=== PATIENT | male | born 1950 | race Caucasian/White ===

== ENCOUNTER 2017-09-07 10:01 | Observation (INO) | payer MEDICARE, OTHER ==
--- NOTE | 2017-09-07 10:37 | ED ---
Chest Pain HPI - General Chief Complaint: Chest Pain Stated Complaint: Chest Pain Time Seen by Provider: 09/07/17 10:07 Source: EMS Mode of arrival: EMS Limitations: no limitations - History of Present Illness Initial Comments: This is a 66-year-old male with a history of CAD who presents emergent department for chest pain. He states that for the last couple of weeks she's had a steady decline in the amount of energy that he's had throughout the day. He states that this morning he was walking to the [place] when all the sudden he had a sudden onset of some chest discomfort that "knocked him back". He states that he decided to call and he notes at that time. He did take an aspirin before their arrival. They gave him a nitro in route which improved his chest pain. He states he still has a little bit of discomfort however the pain is mostly resolved. He states that the pain felt similar to his previous [place] in the past. 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 90 shortness of breath. No abdominal pain. No nausea, vomiting, diarrhea. No other acute complaints at this time. - Related Data Home Medications Medication Instructions Recorded Confirmed Aspirin 325 mg PO HS 09/07/17 09/07/17 Docusate [Colace] 100 mg PO HS PRN 09/07/17 09/07/17 Eszopiclone [Lunesta] 1 mg PO HS 09/07/17 09/07/17 Ezetimibe/Simvastatin [Vytorin 1 tab PO HS 09/07/17 09/07/17 10-80 mg Tablet] Isosorbide Mononitrate ER [Imdur] 30 mg PO HS 09/07/17 09/07/17 Ketotifen 0.025% Ophth Soln 1 drop BOTH EYES BID PRN 09/07/17 09/07/17 [Zaditor] Lisinopril [Zestril] 10 mg PO HS 09/07/17 09/07/17 Metoprolol Succinate (ER) [Toprol 25 mg PO HS 09/07/17 09/07/17 Xl] Nicotine 21Mg/24Hr Patch [Habitrol 1 patch TRANSDERM DAILY 09/07/17 09/07/17 21Mg/24Hr Patch] Pantoprazole [Protonix] 40 mg PO HS 09/07/17 09/07/17 SUMAtriptan SUCCINATE [Imitrex] 50 mg PO BID PRN 09/07/17 09/07/17 Temazepam [Restoril] 30 mg PO HS 09/07/17 09/07/17 amLODIPine [Norvasc] 10 mg PO HS 09/07/17 09/07/17 busPIRone HCl [Buspar] 20 mg PO BID 09/07/17 09/07/17 traMADol HCL [Ultram] 50 mg PO BID PRN 09/07/17 09/07/17 Allergies Allergy/AdvReac Type Severity Reaction Status Date / Time codeine Allergy Rash/Hives Verified 09/07/17 10:28 zolpidem [From Ambien] AdvReac "salty" Verified 09/07/17 10:28 taste in mouth, numb mouth Review of Systems ROS Statement: Those systems with pertinent positive or pertinent negative responses have been documented in the HPI. ROS Other: All systems not noted in ROS Statement are negative. EKG Findings - EKG Comments: EKG Findings:: EKG showing normal sinus rhythm with a rate of 72. No abnormal ST segment changes or T-wave inversions.. QTC is 429. Other intervals normal. No ectopy. Past Medical History Past Medical History: Coronary Artery Disease (CAD), Hyperlipidemia, Hypertension, Myocardial Infarction ([place]) History of Any Multi-Drug Resistant Organisms: None Reported Past Surgical History: Heart Catheterization With Stent Past Psychological History: No Psychological Hx Reported Smoking Status: Current every day smoker Past Alcohol Use History: None Reported Past Drug Use History: Marijuana General Exam - General Exam Comments Initial Comments: Constitutional: Awake alert Appears comfortable Head: Normocephalic atraumatic Eyes: no conjunctival injection No scleral icterus EOMI Neck: No JVD Supple Heart: Regular rate rhythm normal S1-S2 no murmurs Lungs: Clear to auscultation bilaterally No wheezing No rales Abdomen: Soft nondistended nontender Extremities: Non edematous DP pulses intact Radial pulses intact Neuro: A&Ox3 No focal neurologic deficits Psych: Appropriate mood and affect Limitations: no limitations Course Vital Signs 09/07/17 09/07/17 10:02 11:00 Temperature 97.2 F L Pulse Rate 80 69 Respiratory 20 20 Rate Blood Pressure 147/76 115/65 O2 Sat by Pulse 98 97 Oximetry Chest Pain MDM - MDM This is a 66-year-old male who presents emergency department for fatigue and chest pain. The patient had no acute ischemic changes on his EKG. Troponin negative. The patient was improved after nitro that was given in route by EMS. This patient does have a significant history of CAD and [place] in the past. I feel that he is not safe to go home. He needs to have a further workup performed in the hospital. I spoke with Dr. Marcano who accepts the admission. The patient was updated and agrees with this. Patient will be observed for cardiac eval. Disposition Clinical Impression: Chest pain Disposition: ADMITTED IP TO THIS HOSP Condition: Stable
[2017-09-07 10:52] LABS: Basophils # (A) 0.1 k/uL (0-0.2); Basophils % (A) 1 %; Eosinophils # (A) 0.2 k/uL (0-0.7); Eosinophils % (A) 3 %; HCT 41.1 % (39.0-53.0); HGB 13.6 gm/dL (13.0-17.5); Lymphocytes # (A) 2.3 k/uL (1.0-4.8); Lymphocytes % (A) 30 %; MCH 30.6 pg (25.0-35.0); MCHC 33.1 g/dL (31.0-37.0); MCV 92.5 fL (80.0-100.0); Mean Platelet Volume 7.4; Monocytes # (A) 0.7 k/uL (0-1.0); Monocytes % (A) 10 %; Neutrophils # (A) 4.2 k/uL (1.3-7.7); Neutrophils % (A) 55 %; Platelet Count 212 k/uL (150-450); RBC 4.44 m/uL (4.30-5.90); RDW 13.1 % (11.5-15.5); WBC 7.7 k/uL (3.8-10.6)
[2017-09-07 11:01] LABS: ALT 29 U/L (21-72); AST 17 U/L (17-59); Albumin 4.3 g/dL (3.5-5.0); Alkaline Phosphatase 97 U/L (38-126); Anion Gap 10 mmol/L; Blood Urea Nitrogen 14 mg/dL (9-20); Calcium 9.1 mg/dL (8.4-10.2); Carbon Dioxide 23 mmol/L (22-30); Chloride 110 mmol/L (98-107); Glucose 95 mg/dL (74-99); Potassium 4.6 mmol/L (3.5-5.1); Sodium 143 mmol/L (137-145); Total Bilirubin 0.5 mg/dL (0.2-1.3); Total Protein 6.9 g/dL (6.3-8.2)
--- NOTE | 2017-09-07 11:04 | XR ---
EXAMINATION TYPE: XR chest 2V DATE OF EXAM: 09/07/2017 COMPARISON: 12/14/2015 HISTORY: 66-year-old male with chest pain and shortness of breath TECHNIQUE: PA and lateral views FINDINGS: Heart normal size. Mild elongation thoracic aorta. Diffuse interstitial prominence is unchanged. Stra ndy lower lung atelectasis. No consolidation or pleural effusion. IMPRESSION: Chronic changes, possible chronic bronchitis/asthma. No acute cardiopulmonary process.
[2017-09-07 11:18] LABS: INR 0.9 (<1.2); Partial Thromboplastin Time 23.9 sec (22.0-30.0); Prothrombin Time 9.4 sec (9.0-12.0)
[2017-09-07 11:58] LABS: Creatine Kinase MB 1.6 ng/mL (0.0-2.4); Troponin I <0.012 ng/mL (0.000-0.034)
[2017-09-07] MEDS ORDERED: NITROGLYCERIN SL TABS 0.4 MG TAB SUBLINGUAL PRN (12:06)
[2017-09-07] MEDS ORDERED: HEPARIN SODIUM,PORCINE 5,000 UNIT/ML 1 ML VIAL IV ONE (12:06)
[2017-09-07] MEDS ORDERED: SUMAtriptan SUCCINATE 50 MG TAB PO PRN (12:09)
[2017-09-07] MEDS ORDERED: KETOTIFEN 0.025% OPHTH DROPS 5 ML BTL BOTH EYES PRN (12:09)
[2017-09-07] MEDS ORDERED: DOCUSATE 100 MG CAP PO PRN (12:09)
[2017-09-07] MEDS ORDERED: traMADol 50 MG TAB PO PRN (12:09)
[2017-09-07] MEDS ORDERED: HEPARIN SOD,PORK IN 0.45% NACL 25,000 UNIT in 0.45% NACL 1 500ML.BAG IV SCH (12:15)
[2017-09-07] MEDS ORDERED: NICOTINE 21MG/24HR PATCH TRANSDERM STA (16:44)
[2017-09-07] MEDS: ALPRAZolam 0.25 MG TAB PO PRN (17:48)
[2017-09-07 18:36] LABS: Creatine Kinase 278 U/L (55-170)
[2017-09-07 18:49] LABS: Creatine Kinase MB 1.8 ng/mL (0.0-2.4); Troponin I <0.012 ng/mL (0.000-0.034)
[2017-09-07] MEDS: traMADol 50 MG TAB PO PRN (19:31)
[2017-09-07 19:40] LABS: Appearance,Urine Clear (Clear); Bilirubin,Urine Negative (Negative); Blood,Urine Negative (Negative); Color,Urine Light Yellow; Glucose,Urine (UA) Negative (Negative); Ketones,Urine Negative (Negative); Leukocyte Esterase,Urine Negative (Negative); Nitrite,Urine Negative (Negative); PH, Urine 6.5 (5.0-8.0); Protein,Urine Negative (Negative); Specific Gravity,Urine 1.009 (1.001-1.035); Urobilinogen,Urine <2.0 mg/dL (<2.0)
[2017-09-07] MEDS ORDERED: ISOSORBIDE MONONITRATE ER 30 MG TAB.ER.24H PO SCH (21:00)
[2017-09-07] MEDS ORDERED: TEMAZEPAM 30 MG CAP PO SCH (21:00)
[2017-09-07] MEDS ORDERED: EZETIMIBE 10 MG TAB PO SCH (21:00)
[2017-09-07] MEDS ORDERED: METOPROLOL SUCCINATE (ER) 25 MG TAB.ER.24H PO SCH (21:00)
[2017-09-07] MEDS ORDERED: ATORVASTATIN 40 MG TAB PO SCH (21:00)
[2017-09-07] MEDS ORDERED: amLODIPine 10 MG TAB PO SCH (21:00)
[2017-09-07] MEDS ORDERED: LISINOPRIL 10 MG TAB PO SCH (21:00)
[2017-09-07] MEDS ORDERED: TEMAZEPAM 15 MG CAP PO SCH (21:00)
[2017-09-07] MEDS ORDERED: PANTOPRAZOLE 40 MG TABLET PO SCH (21:00)
[2017-09-07] MEDS: busPIRone HCl 10 MG TAB PO SCH (21:22)
[2017-09-07] MEDS: PANTOPRAZOLE 40 MG TABLET PO SCH (21:23)
[2017-09-07 23:25] LABS: Creatine Kinase 242 U/L (55-170)
[2017-09-07 23:39] LABS: Creatine Kinase MB 1.6 ng/mL (0.0-2.4); Troponin I <0.012 ng/mL (0.000-0.034)
[2017-09-08] MEDS: traMADol 50 MG TAB PO PRN ×2 (01:07→05:31)
[2017-09-08] MEDS ORDERED: IBUPROFEN 600 MG TAB PO PRN (04:46)
--- NOTE | 2017-09-08 04:59 | HP ---
HISTORY AND PHYSICAL DATE OF SERVICE: 09/07/17 CHIEF COMPLAINT: Chest pain. HISTORY OF PRESENT ILLNESS: This 66-year-old gentleman with a past medical history of multiple medical problems including history of CAD, history of GERD, hypertension, hyperlipidemia, history of myocardial infarction, vascular disease and history of cardiac arrest, myocardial infarction, being followed by Dr. Felix in the outpatient setting apparently had a recent stress test about 5 months ago. Currently the patient is complaining of chest pain for the last couple of weeks. The patient also complaining of significant weakness for the last couple of weeks and the pain was felt in the anterior part of the chest, the lower part and because of the increasing difficulties the patient came to [facility] and was admitted for further evaluation and treatment. The weakness is predominant and nitro en route improved the pain. There is no history of any other palpitation, hematochezia or melena at this time. The patient's managing partner is elsewhere. PAST MEDICAL HISTORY: CAD, CVA, TIA, GERD, hypertension, hyperlipidemia, history of myocardial infarction, history of vascular disease, cardiac arrest. MEDICATIONS: The home medications are: 1. Ultram 50 mg b.i.d. p.r.n. 2. BuSpar 20 mg b.i.d. 3. Imitrex 50 mg b.i.d. p.r.n. 4. Habitrol daily. 5. Zaditor 1 drop both eyes b.i.d. 6. Colace 100 mg q.h.s. 7. Aspirin 320 mg q.h.s. 8. Norvasc 10 mg daily. 9. Imdur 30 mg. 10.Restoril 30 mg q.h.s. 11.Protonix 40 mg. 12.Toprol-XL 25 mg q.h.s. 13.Zestril 20 mg q.h.s. 15.Lunesta 1 mg q.h.s. ALLERGIES: ALLERGIES ARE CODEINE AND AMBIEN. FAMILY HISTORY: History of diabetes mellitus. SOCIAL HISTORY: History of smoking, continued ongoing. No history of alcohol intake. REVIEW OF SYSTEMS: ENT: No diminished vision. No diminished hearing. CARDIOVASCULAR: As mentioned. Respiration: As mentioned earlier. GI no nausea or vomiting. no dysuria or hematuria. Nervous systems: No numbness or weakness. Allergy/Immunology: No asthma or hayfever. MUSCULOSKELETAL: As mentioned earlier. Hematology/Oncology: No history of anemia. Endocrine: No history of diabetes or hypothyroidism. Constitutional: As mentioned earlier. Dermatology: Negative. Rheumatology: Negative. Psychiatric: As mentioned earlier. EXAMINATION: Alert and oriented times three. Pulse is 70, blood pressure 140/92. Respirations 16, temperature 98.4, pulse ox 94% on room air. No orthostatic changes. HEENT: Conjunctivae normal. Neck is no jugular venous distention. Cardiovascular system: S1, S2 muffled. No S3, no S4. Respiratory: Breath sounds diminished in the bases. A few rhonchi. No crackles. ABDOMEN: Soft, obese, nontender. No mass palpable. Legs: No edema and no swelling. NERVOUS SYSTEM: Higher functions as mentioned earlier, moves all 4 limbs, no focal motor or sensory deficits. Lymphatics: No lymph nodes palpable in the neck, axillae or groin. Skin no ulcers, rashes or bleeding. LAB STUDIES: CBC within normal limits. Sodium 141, potassium 4.6, and creatinine 2.8. Troponins negative. The EKG shows some old possibly old inferior infarct. No acute changes. ASSESSMENT: 1. Chest pain possible unstable angina. 2. History of myocardial infarction with cardiac arrest. 3. History of gastroesophageal reflux disease. 4. History of cerebrovascular accident/transient ischemic attack. 5. Hypertension. 6. Hyperlipidemia. 7. History of continued nicotine dependence. 8. History of hepatitis C. 9. History of coronary artery disease, stent. 10.History of anxiety. RECOMMENDATIONS AND DISCUSSION: In this 60-year-old gentleman who presented with multiple complex medical issues , I recommend to continue current medications, management and symptomatic treatment. Continue with beta debby. Continue the unstable angina protocol and antiplatelet agents. Cardiology consultation. Xanax for anxiety. Otherwise I would also recommend repeat labs in the morning. Prognosis guarded because of multiple complex medical issues, which I discussed at length with the patient at bedside. The patient understands, and agrees. Further recommendations to follow. Copy of dictation being forwarded to Dr. Azar who is the primary care physician. MMROBL / GINGERN: [id number] / MTDD
[2017-09-08] MEDS: ALPRAZolam 0.25 MG TAB PO PRN (05:27)
[2017-09-08 07:57] LABS: Basophils % (A) 1 %; Eosinophils # (A) 0.3 k/uL (0-0.7); Eosinophils % (A) 4 %; HCT 38.8 % (39.0-53.0); HGB 12.3 gm/dL (13.0-17.5); Lymphocytes # (A) 2.6 k/uL (1.0-4.8); Lymphocytes % (A) 39 %; MCH 30.4 pg (25.0-35.0); MCHC 31.6 g/dL (31.0-37.0); Mean Platelet Volume 7.5; Monocytes # (A) 0.7 k/uL (0-1.0); Monocytes % (A) 10 %; Neutrophils % (A) 44 %; Platelet Count 169 k/uL (150-450); RBC 4.04 m/uL (4.30-5.90); RDW 13.1 % (11.5-15.5); WBC 6.9 k/uL (3.8-10.6)
[2017-09-08 08:25] VITALS: BP 153/86; PULSE 88; RESP 18; TEMP 97.6
[2017-09-08] MEDS: busPIRone HCl 10 MG TAB PO SCH (08:27)
[2017-09-08] MEDS: PANTOPRAZOLE 40 MG TABLET PO SCH (08:29)
[2017-09-08 08:59] LABS: Anion Gap 9 mmol/L; Blood Urea Nitrogen 17 mg/dL (9-20); Calcium 9.2 mg/dL (8.4-10.2); Carbon Dioxide 23 mmol/L (22-30); Chloride 108 mmol/L (98-107); Cholesterol 97 mg/dL (<200); Glucose 99 mg/dL (74-99); HDL Cholesterol 42 mg/dL (40-60); LDL Cholesterol,Calculated 42 mg/dL (0-99); Potassium 4.4 mmol/L (3.5-5.1); Sodium 140 mmol/L (137-145); Triglycerides 63 mg/dL (<150)
[2017-09-08] MEDS ORDERED: NICOTINE 21MG/24HR PATCH TRANSDERM SCH (09:00)
[2017-09-08] MEDS ORDERED: ASPIRIN 325 MG TAB PO SCH (09:00)
--- NOTE | 2017-09-08 11:25 | ECHOF ---
Referral Reason:chest pain MEASUREMENTS -------- HEIGHT: 177.8 cm WEIGHT: 97.5 kg BP: 96/48 RVIDd: 2.8 cm (< 3.3) IVSd: 1.3 cm (0.6 - 1.1) LVIDd: 3.4 cm (3.9 - 5.3) LVPWd: 1.3 cm (0.6 - 1.1) IVSs: 1.7 cm LVIDs: 2.6 cm LVPWs: 2.0 cm LA Diam: 3.7 cm (2.7 - 3.8) LAESV Index (A-L): 24.61 ml/m Ao Diam: 3.3 cm (2.0 - 3.7) AV Cusp: 2.2 cm (1.5 - 2.6) MV EXCURSION: 18.048 mm (> 18.000) MV EF SLOPE: 83 mm/s (70 - 150) EPSS: 1.1 cm MV E Salvador: 0.63 m/s MV DecT: 303 ms MV A Salvador: 0.89 m/s MV E/A Ratio: 0.70 FINDINGS -------- Sinus rhythm. This was a technically good study. The left ventricular size is normal. There is mild concentric left ventricular hypertrophy. Overa ll left ventricular systolic function is mildly impaired with, an EF between 45 - 50 %. Basal infer ior LV wall motion is hypokinetic. Basal inferoseptal LV wall motion is hypokinetic. The right ventricle is normal in size. Normal LA size by volume 22+/-6 ml/m2. The right atrium is normal in size. There is mild aortic valve sclerosis. There is trace mitral regurgitation. The tricuspid valve appears structurally normal. Trace/mild (physiologic) pulmonic regurgitation. The aortic root size is normal. Normal inferior vena cava with normal inspiratory collapse consistent with estimated right atrial pre ssure of 5 mmHg. There is no pericardial effusion. CONCLUSIONS -------- 1. Sinus rhythm. 2. This was a technically good study. 3. The left ventricular size is normal. 4. There is mild concentric left ventricular hypertrophy. 5. Overall left ventricular systolic function is mildly impaired with, an EF between 45 - 50 %. 6. Basal inferior LV wall motion is hypokinetic. 7. Basal inferoseptal LV wall motion is hypokinetic. 8. The right ventricle is normal in size. 9. Normal LA size by volume 22+/-6 ml/m2. 10. The right atrium is normal in size. 11. There is mild aortic valve sclerosis. 12. There is trace mitral regurgitation. 13. The tricuspid valve appears structurally normal. 14. Trace/mild (physiologic) pulmonic regurgitation. 15. The aortic root size is normal. 16. Normal inferior vena cava with normal inspiratory collapse consistent with estimated right atrial pressure of 5 mmHg. 17. There is no pericardial effusion. SECURITY TESTER: Celi Sanchez RDCS
--- NOTE | 2017-09-08 11:46 | P.CRDCN ---
History of Present Illness Consult date: 09/08/17 Consult reason: chest pain History of present illness: Mr. James is a pleasant 66-year-old male past medical history significant for coronary artery disease, hypertension, dylipidemia, gastroesophageal reflux disease, hepatitis C, chronic tobacco use and anxiety. He follows with Dr. Sung out of [facility] for his cardiac needs. He states he has a total of 7 stents, last one being placed in 2011 at [facility]. We have been asked to see him in consultation for an episode of chest pain. He states yesterday he was getting up and walking down his hallway and he felt very weak and fatigued. Out of nowhere he felt a sharp, jolt like pain that caused him to fall backwards. He denies having an AICD. The pain was centrally located in his chest and remained there with no radiation of the pain. He admits to shortness of breath with the pain. Denies associated palpitation, dizziness, nausea, vomiting or diaphoresis. The pain remained until EMS arrived and was given nitroglycerin. He has had not further symptoms of chest pain since admission. At the time of my exam he is resting comfortably in no acute distress and chest pain free. EKG reveals sinus mechanism with non-specific T-wave changes in inferior leads. No evidence of acute ischemia. Chest xray is negative for an acute cardiopulmonary process. Laboratory data reviewed, hemoglobin 12.3, platelets 169, potassium 4.4, creatinine 1.23, cardiac enzymes negative 3, LDL 42, HDL 42. Current cardiac medications include aspirin 325 mg daily, Norvasc 10 mg daily, Imdur 30 mg daily, Toprol 25 mg daily and lisinopril 10 mg daily. There are no old records to review. Review of Systems At the time of my exam: CONSTITUTIONAL: Denies fever. Denies chills. EYES: Denies blurred vision. Denies vision changes. Denies eye pain. EARS, NOSE, MOUTH & THROAT: Denies headache. Denies sore throat. Denies ear pain. CARDIOVASCULAR: Denies chest pain. Denies shortness of breath. Denies orthopnea. Denies PND. Denies palpitations. RESPIRATORY: Denies cough. GASTROINTESTINAL: Denies abdominal pain. Denies diarrhea. Denies constipation. Denies nausea. Denies vomiting. MUSCULOSKELETAL: Denies myalgias. INTEGUMENTARY: Denies pruitis. Denies rash. NEUROLOGIC: Denies numbness. Denies tingling. Denies weakness. PSYCHIATRIC: Denies anxiety. Denies depression. ENDOCRINE: Denies fatigue. Denies weight change. Denies polydipsia. Denies polyurina. GENITOURINARY: Denies burning, hematuria or urgency with micturation. HEMATOLOGIC: Denies history of anemia. Denies bleeding. Past Medical History Past Medical History: Coronary Artery Disease (CAD), CVA/TIA, GERD/Reflux, Hyperlipidemia, Hypertension, Liver Disease, Myocardial Infarction ([place]), Vascular Disorder Additional Past Medical History / Comment(s): 2011 [place] with cardiac arrest, migraines, arthritis multiple joints, CVA with " spot" in L eye, hepatitis C. Last Myocardial Infarction Date:: 2011 History of Any Multi-Drug Resistant Organisms: None Reported Past Surgical History: Heart Catheterization With Stent, Orthopedic Surgery Additional Past Surgical History / Comment(s): PCI with a total of 7 stents per pt, L caratid endartectomy, L shoulder surgery for injury, R knee/R hip/R elbow/ R wrist ligament/tendon type surgeries injuries-has pins in hand, colonoscopy. Past Anesthesia/Blood Transfusion Reactions: No Reported Reaction Date of Last Stent Placement:: 2011 Smoking Status: Current every day smoker - Past Family History Father Additional Family Medical History / Comment(s): Father is . Pt states father from "stupidity." Mother Family Medical History: Diabetes Mellitus Additional Family Medical History / Comment(s): Mother from diabetes at the age of 52 yrs. Medications and Allergies Home Medications Medication Instructions Recorded Confirmed Type Aspirin 325 mg PO HS 09/07/17 09/07/17 History Docusate [Colace] 100 mg PO HS PRN 09/07/17 09/07/17 History Eszopiclone [Lunesta] 1 mg PO HS 09/07/17 09/07/17 History Ezetimibe/Simvastatin [Vytorin 1 tab PO HS 09/07/17 09/07/17 History 10-80 mg Tablet] Isosorbide Mononitrate ER [Imdur] 30 mg PO HS 09/07/17 09/07/17 History Ketotifen 0.025% Ophth Soln 1 drop BOTH EYES BID PRN 09/07/17 09/07/17 History [Zaditor] Lisinopril [Zestril] 10 mg PO HS 09/07/17 09/07/17 History Metoprolol Succinate (ER) [Toprol 25 mg PO HS 09/07/17 09/07/17 History XL] Nicotine 21Mg/24Hr Patch [Habitrol] 1 patch TRANSDERM DAILY 09/07/17 09/07/17 History Pantoprazole [Protonix] 40 mg PO HS 09/07/17 09/07/17 History SUMAtriptan SUCCINATE [Imitrex] 50 mg PO BID PRN 09/07/17 09/07/17 History Temazepam [Restoril] 30 mg PO HS 09/07/17 09/07/17 History amLODIPine [Norvasc] 10 mg PO HS 09/07/17 09/07/17 History busPIRone HCl [Buspar] 20 mg PO BID 09/07/17 09/07/17 History traMADol HCL [Ultram] 50 mg PO BID PRN 09/07/17 09/07/17 History Allergies Allergy/AdvReac Type Severity Reaction Status Date / Time codeine Allergy Rash/Hives Verified 09/07/17 10:28 zolpidem [From Ambien] AdvReac "salty" Verified 09/07/17 10:28 taste in mouth, numb mouth Physical Exam Vitals: Vital Signs Temp Pulse Pulse Pulse Pulse Pulse Resp 09/08/17 03:24 72 16 09/08/17 03:21 98.2 F 76 16 09/08/17 00:00 97.9 F 75 18 09/07/17 20:00 74 18 09/07/17 19:33 98.1 F 78 80 76 16 09/07/17 16:00 70 09/07/17 15:34 98.4 F 70 16 09/07/17 14:05 99.2 F 83 18 09/07/17 13:00 97.6 F 76 18 09/07/17 11:00 69 20 09/07/17 10:02 97.2 F L 80 20 BP BP BP BP BP Pulse Ox 09/08/17 03:24 09/08/17 03:21 96/48 96 09/08/17 00:00 89/54 98 09/07/17 20:00 09/07/17 19:33 173/83 157/87 167/77 97 09/07/17 16:00 09/07/17 15:34 148/95 95 09/07/17 14:05 153/88 96 09/07/17 13:00 147/85 97 09/07/17 11:00 115/65 97 09/07/17 10:02 147/76 98 Intake and Output 09/07/17 09/08/17 09/08/17 22:59 06:59 14:59 Intake Total 1582 582.667 Balance 1582 582.667 Intake: IV 80 340 0.9 NS @ KVO 80 160 Heparin Sod,Pork in 0.45% 180 NaCl 25,000 unit In 0.45 % NaCl 1 500ml.bag @ 10.2 UNITS/KG/HR 19.98 mls/hr IV .Q24H [facility] Rx#: [id number] Intake, IV Titration 80 242.667 Amount Heparin Sod,Pork in 0.45% 80 242.667 NaCl 25,000 unit In 0.45 % NaCl 1 500ml.bag @ 10.2 UNITS/KG/HR 19.98 mls/hr IV .Q24H [facility] Rx#: [id number] Oral 1422 Other: Voiding Method Toilet Toilet # Voids 2 2 Blood pressure 153/86 heart rate 88 afebrile GENERAL: This is a 66-year-old male in no apparent distress at the time of my examination. HEENT: Head is atraumatic, normocephalic. Pupils are equal, round. Sclerae anicteric. Conjunctivae are clear. Mucous membranes of the mouth are moist. Neck is supple. There is no jugular venous distention. No carotid bruit is heard. LUNGS: Clear to auscultation no wheezes, rales or rhonchi. No chest wall tenderness is noted on palpation or with deep breathing. Diminished. HEART: Regular rate and rhythm without murmurs, rubs or gallops. S1 and S2 heard. ABDOMEN: Soft, nontender. Bowel sounds are heard. No organomegaly noted. EXTREMITIES: No evidence of peripheral edema and no calf tenderness noted. VASCULAR: Radial and dorsalis pedis pulses palpated, no evidence of clubbing. NEUROLOGIC: Patient is awake, alert and oriented x3. Results 09/08/17 07:12 09/08/17 07:12 Cardiac Enzymes 09/07/17 09/07/17 09/07/17 Range/Units 10:40 10:40 17:55 AST 17 (17-59) U/L CK-MB (CK-2) 1.6 1.8 (0.0-2.4) ng/mL Troponin I <0.012 <0.012 (0.000-0.034) ng/mL 09/07/17 Range/Units 23:00 AST (17-59) U/L CK-MB (CK-2) 1.6 (0.0-2.4) ng/mL Troponin I <0.012 (0.000-0.034) ng/mL Coagulation 09/07/17 09/07/17 09/08/17 Range/Units 10:40 17:55 07:12 PT 9.4 (9.0-12.0) sec APTT 23.9 33.9 H 41.7 H (22.0-30.0) sec CBC 09/07/17 Range/Units 10:40 WBC 7.7 (3.8-10.6) k/uL RBC 4.44 (4.30-5.90) m/uL Hgb 13.6 (13.0-17.5) gm/dL Hct 41.1 (39.0-53.0) % Plt Count 212 (150-450) k/uL Comprehensive Metabolic Panel 09/07/17 Range/Units 10:40 Sodium 143 (137-145) mmol/L Potassium 4.6 (3.5-5.1) mmol/L Chloride 110 H (98-107) mmol/L Carbon Dioxide 23 (22-30) mmol/L BUN 14 (9-20) mg/dL Creatinine 1.29 H (0.66-1.25) mg/dL Glucose 95 (74-99) mg/dL Calcium 9.1 (8.4-10.2) mg/dL AST 17 (17-59) U/L ALT 29 (21-72) U/L Alkaline Phosphatase 97 (38-126) U/L Total Protein 6.9 (6.3-8.2) g/dL Albumin 4.3 (3.5-5.0) g/dL Current Medications Generic Name Dose Route Start Last Admin Trade Name Freq PRN Reason Stop Dose Admin Alprazolam 0.25 mg 09/07/17 17:27 09/08/17 05:27 Xanax PO 0.25 mg TID PRN Administration Anxiety Amlodipine Besylate 10 mg 09/07/17 21:00 09/07/17 21:23 Norvasc PO 10 mg HS [facility]ERSON Administration Aspirin 325 mg 09/08/17 09:00 Aspirin PO DAILY [facility]ERSON Atorvastatin Calcium 40 mg 09/07/17 21:00 09/07/17 21:23 Lipitor PO 40 mg HS GERSON Administration Buspirone HCl 20 mg 09/07/17 21:00 09/07/17 21:22 Buspar PO 20 mg BID [facility]ERSON Administration Docusate Sodium 100 mg 09/07/17 12:09 Colace PO HS PRN Constipation Ezetimibe 10 mg 09/07/17 21:00 09/07/17 21:24 Zetia PO 10 mg HS GERSON Administration Heparin Sodium/Sodium Chloride 500 mls @ 19.98 mls/hr 09/07/17 12:15 01:12 25,000 unit/ Sodium Chloride IV 13.2 units/kg/hr .Q24H [facility] 25.86 mls/hr Protocol Titration 10.2 UNITS/KG/HR Ibuprofen 600 mg 09/08/17 04:46 Motrin PO TID PRN moderate pain Isosorbide Mononitrate 30 mg 09/07/17 21:00 09/07/17 21:24 Imdur PO 30 mg HS [facility]ERSON Administration Ketotifen Fumarate 1 drops 09/07/17 12:09 Zaditor BOTH EYES BID PRN dry eyes Lisinopril 10 mg 09/07/17 21:00 09/07/17 21:24 Zestril PO 10 mg HS [facility]ERSON Administration Metoprolol Succinate 25 mg 09/07/17 21:00 09/07/17 21:24 Toprol Xl PO 25 mg HS [facility]ERSON Administration Nicotine 1 patch 09/08/17 09:00 Habitrol 21mg/24hr Patch TRANSDERM DAILY [facility] Nitroglycerin 0.4 mg 09/07/17 12:06 Nitrostat SUBLINGUAL Q5M PRN Chest Pain Pantoprazole Sodium 40 mg 09/07/17 17:45 09/07/17 21:23 Protonix PO 40 mg AC-BID [facility]ERSON Administration Sumatriptan Succinate 50 mg 09/07/17 12:09 Imitrex PO BID PRN Headache Temazepam 30 mg 09/07/17 21:00 09/07/17 21:31 Restoril PO 30 mg HS GERSON Administration Tramadol HCl 50 mg 09/07/17 17:39 09/08/17 05:31 Ultram PO 50 mg Q6H PRN Administration severe pain Intake and Output 09/07/17 09/08/17 09/08/17 22:59 06:59 14:59 Intake Total 1582 582.667 Balance 1582 582.667 Intake: IV 80 340 0.9 NS @ KVO 80 160 Heparin Sod,Pork in 0.45% 180 NaCl 25,000 unit In 0.45 % NaCl 1 500ml.bag @ 10.2 UNITS/KG/HR 19.98 mls/hr IV .Q24H [facility] Rx#: [id number] Intake, IV Titration 80 242.667 Amount Heparin Sod,Pork in 0.45% 80 242.667 NaCl 25,000 unit In 0.45 % NaCl 1 500ml.bag @ 10.2 UNITS/KG/HR 19.98 mls/hr IV .Q24H [facility] Rx#: [id number] Oral 1422 Other: Voiding Method Toilet Toilet # Voids 2 2 09/07/17 10:40 09/07/17 10:40 Assessment and Plan Assessment: ASSESSMENT 1. Chest pain, atypical. No EKG evidence of an acute ischemic event and cardiac enzymes are negative. 2. History of known coronary artery disease most recent cardiac catheterization [address] Sung 3. Hypertension 4. Dyslipidemia 5. Chronic tobacco abuse PLAN Obtain 2D echocardiogram and doppler study to assess cardiac structure and function. Obtain records from Dr. Sung of recent stress test. He states he had one done 6-7 months ago. The patient would like to leave and follow up with his primary identification clerk. We have explained to him that although an acute coronary event has been ruled out we would like to possibly perform a stress test. He does not want to have this done. The importance of follow up with his identification clerk is discussed and recommended. Smoking cessation discussed and recommended. Thank you kindly for this consultation. Nurse Practitioner note has been reviewed, I agree with a documented findings and plan of care. Patient was seen and examined.
--- NOTE | 2017-09-08 21:41 | DS ---
DISCHARGE SUMMARY DATE OF SERVICE: 09/08/2017. FINAL DIAGNOSES: 1. Chest pain possible musculoskeletal pain. 2. Myocardial infarction ruled out. 3. History of myocardial infarction with cardiac arrest. 4. History of gastroesophageal reflux disease. 5. History of cerebrovascular accident, transient ischemic attack. 6. Hypertension. 7. Hyperlipidemia. 8. History of continued ongoing nicotine dependence. 9. History of hepatitis C. 10.History of coronary artery disease/stent. 11.History of anxiety. DISCHARGE DISPOSITION: The patient is being discharged in stable condition with guarded prognosis. HISTORY: This 66-year-old gentleman with a past medical history of multiple medical problems, was admitted with chest pain. Myocardial infarction ruled out. Cardiology recommended stress test. Patient would rather go to his own cotton puller and followup. Patient recently had a negative stress test according to him. The patient . Vital signs stable. Cardiovascular S1 and S2. Abdomen soft, no tenderness. Nervous system: No focal deficits. DISCHARGE ADVICE AND MEDICATIONS: 1. Diet is cardiac diet. 2. Activity limited until follow up. 3. Follow up with Dr. Azar in 2-3 days. 4. Follow up with the primary physician and cardiology as advised. MEDICATIONS ARE: 1. Norvasc 10 mg q.h.s. 2. Aspirin 320 mg q.h.s. 3. BuSpar 10 mg p.o. b.i.d. 4. Colace 100 mg q.h.s. 5. Lunesta 200 mg. 6. Vytorin 1 tab q.h.s. 7. Imdur ER 30 mg q.h.s. 8. Zadato 1 drop both eyes. 9. Zestril 10 mg q.h.s. 10.Metoprolol. 11.Toprol-XL 25 mg q.h.s. 12.Medrol 21 daily. 13.Protonix 40 mg q.h.s. 14.Imitrex 50 mg b.i.d. p.r.n. 15.Restoril 30 mg q.h.s. p.r.n. 16.Ultram 50 mg p.o. b.i.d. p.r.n. Once again, the patient is being discharged in stable condition with guarded prognosis. MMODL / IJN: [id number] / [facility]
== END 2017-09-08 11:35 | disposition home or self-care (01) ==
LOC: EC 10:01 → 3OBS 12:06
PROVIDERS: ADMIT Internal Medicine; ATTEND Internal Medicine
DX: R07.89 Other chest pain (principal); R06.02 Shortness of breath; R53.1 Weakness; I25.10 Atherosclerotic heart disease of native coronary artery without angina pectoris; I10 Essential (primary) hypertension; E78.5 Hyperlipidemia, unspecified; M15.9 Polyosteoarthritis, unspecified; F17.200 Nicotine dependence, unspecified, uncomplicated; K21.9 Gastro-esophageal reflux disease without esophagitis; F41.9 Anxiety disorder, unspecified; B18.2 Chronic viral hepatitis C; G43.909 Migraine, unspecified, not intractable, without status migrainosus; I25.2 Old myocardial infarction; Z86.74 Personal history of sudden cardiac arrest; Z95.5 Presence of coronary angioplasty implant and graft; Z79.82 Long term (current) use of aspirin; Z79.899 Other long term (current) drug therapy; Z88.5 Allergy status to narcotic agent; Z88.8 Allergy status to other drugs, medicaments and biological substances; Z86.73 Personal history of transient ischemic attack (TIA), and cerebral infarction without residual deficits; Z83.3 Family history of diabetes mellitus
CPT/HCPCS: 96376 ×2; 96365 ×2; 99285 ×2; 96366 ×2; 36415; 93005; 93306; 83880; 80061; 80053; 80048; 82550; 82553; 84484; 85025 ×2; 85610; 85730 ×2; 81003; 71046; G0378 ×2; S4990; J1644 ×2

== ENCOUNTER 2019-02-22 10:11 | Inpatient (IN) | payer MEDICARE ==
[2019-02-22] MEDS ORDERED: SODIUM CHLORIDE 0.9% 1,000 ML IV ONE ×2 (10:19→13:23)
--- NOTE | 2019-02-22 10:33 | ED ---
General Adult HPI - General Chief complaint: Altered Mental Status Stated complaint: ALTERED MENTAL Time Seen by Provider: 02/22/19 10:11 Source: EMS, RN notes reviewed Mode of arrival: EMS Limitations: altered mental status - History of Present Illness Initial comments: This is a 68-year-old male who was brought in by EMS as a democrat one. EMS was called for a patient that was found down and not responding to friends. When EMS arrived patient was mumbling and was able to follow some very simple commands but other than that was not able to give him any further history. Friend stated they did not know the last time he was seen normal. They did in dicate to EMS that he has a seizure history. No further history is available at this time. - Related Data Home Medications Medication Instructions Recorded Confirmed Aspirin 325 mg PO HS 09/07/17 02/22/19 Ezetimibe/Simvastatin [Vytorin 1 tab PO HS 09/07/17 02/22/19 10-80 mg Tablet] Isosorbide Mononitrate ER [Imdur] 30 mg PO HS 09/07/17 02/22/19 Lisinopril [Zestril] 10 mg PO HS 09/07/17 02/22/19 Metoprolol Succinate (ER) [Toprol 25 mg PO HS 09/07/17 02/22/19 XL] Pantoprazole [Protonix] 40 mg PO HS 09/07/17 02/22/19 SUMAtriptan SUCCINATE [Imitrex] 50 mg PO BID PRN 09/07/17 02/22/19 Temazepam [Restoril] 30 mg PO HS 09/07/17 02/22/19 amLODIPine [Norvasc] 5 mg PO HS 09/07/17 02/22/19 busPIRone HCl [Buspar] 20 mg PO BID 09/07/17 02/22/19 traMADol HCL [Ultram] 50 mg PO BID PRN 09/07/17 02/22/19 Dicyclomine HCl 20 mg PO BID 02/22/19 02/22/19 Metoprolol Tartrate [Lopressor] 100 mg PO DAILY 02/22/19 02/22/19 Allergies Allergy/AdvReac Type Severity Reaction Status Date / Time codeine Allergy Rash/Hives Verified 02/22/19 10:35 zolpidem [From Ambien] AdvReac "salty" Verified 02/22/19 10:35 taste in mouth, numb mouth Review of Systems ROS Statement: Those systems with pertinent positive or pertinent negative responses have been documented in the HPI. ROS Other: All systems not noted in ROS Statement are negative. Past Medical History Past Medical History: Coronary Artery Disease (CAD), CVA/TIA, GERD/Reflux, Hyperlipidemia, Hypertension, Liver Disease, Myocardial Infarction ([place]), Vascular Disorder Additional Past Medical History / Comment(s): 2011 [place] with cardiac arrest, migraines, arthritis multiple joints, CVA with " spot" in L eye, hepatitis C. Last Myocardial Infarction Date:: 2011 History of Any Multi-Drug Resistant Organisms: None Reported Past Surgical History: Heart Catheterization With Stent, Orthopedic Surgery Additional Past Surgical History / Comment(s): PCI with a total of 7 stents per pt, L caratid endartectomy, L shoulder surgery for injury, R knee/R hip/R elbow/R wrist ligament/tendon type surgeries injuries-has pins in hand, colonoscopy. Past Anesthesia/Blood Transfusion Reactions: No Reported Reaction Date of Last Stent Placement:: 2011 Past Psychological History: Anxiety Smoking Status: Current every day smoker Past Alcohol Use History: Unable to Obtain Past Drug Use History: Unable to Obtain - Past Family History Father Additional Family Medical History / Comment(s): Father is . Pt states father from "stupidity." Mother Family Medical History: Diabetes Mellitus Additional Family Medical History / Comment(s): Mother from diabetes at the age of 52 yrs. General Exam - General Exam Comments Initial Comments: GENERAL: Patient is well-developed and well-nourished. Patient is nontoxic and well- hydrated and is in no acute distress. No obvious signs of gross trauma ENT: Neck is soft and supple. No significant lymphadenopathy is noted. Oropharynx is clear. Moist mucous membranes. Neck has full range of motion without eliciting any pain. EYES: The sclera were anicteric and conjunctiva were pink and moist. PULMONARY: Unlabored respirations. Good breath sounds bilaterally. No audible rales rhonchi or wheezing was noted. CARDIOVASCULAR: There is a regular rate and rhythm without any murmurs gallops or rubs. ABDOMEN: Patient has some suprapubic tenderness and fullness.. SKIN: Skin is clear with no lesions or rashes and otherwise unremarkable. NEUROLOGIC: Patient is patient is able to follow simple commands. Patient can move all 4 extremities and it appears to be equal. Difficult to assess sensation because he does not answer when I ask him if he can feel in those extremities. Patient was able to move his eyes left and the right. I could not get him to move his eyes up and down. MUSCULOSKELETAL: Normal extremities with adequate strength and full range of motion. No lower extremity swelling or edema. No calf tenderness. LYMPHATICS: No significant lymphadenopathy is noted PSYCHIATRIC: Unable to evaluate secondary to his altered mental status. Limitations: altered mental status Course Vital Signs 02/22/19 02/22/19 10:13 11:42 Pulse Rate 84 85 Respiratory 18 16 Rate Blood Pressure 139/93 144/77 O2 Sat by Pulse 98 Oximetry Medical Decision Making - Medical Decision Making EKG shows normal sinus rhythm at 83 bpm FL interval is on a 58 QRS is 92 QT interval 394 QTC is 462. Patient's EKG shows no ST segment elevation or depression or T wave abnormalities are noted. CT of the brain and C-spine are negative. Patient is becoming more arousable and able to answer questions better but he still is not back to what I would consider this probable baseline. Patient has no complaints however when I do wake him up. Spoke with Dr. El agreed to admit the patient admitted the patient wrote admitting orders - Lab Data Result diagrams: 02/22/19 10:25 02/22/19 10:25 Lab Results 02/22/19 02/22/19 02/22/19 Range/Units 10:25 10:25 10:25 WBC 13.7 H (3.8-10.6) k/uL RBC 4.23 L (4.30-5.90) m/uL Hgb 13.2 (13.0-17.5) gm/dL Hct 39.7 (39.0-53.0) % MCV 93.9 (80.0-100.0) fL MCH 31.2 (25.0-35.0) pg MCHC 33.3 (31.0-37.0) g/dL RDW 14.3 (11.5-15.5) % Plt Count 309 (150-450) k/uL Neutrophils % 82 % Lymphocytes % 8 % Monocytes % 8 % Eosinophils % 0 % Basophils % 0 % Neutrophils # 11.2 H (1.3-7.7) k/uL Lymphocytes # 1.1 (1.0-4.8) k/uL Monocytes # 1.2 H (0-1.0) k/uL Eosinophils # 0.1 (0-0.7) k/uL Basophils # 0.0 (0-0.2) k/uL PT (9.0-12.0) sec INR (<1.2) APTT (22.0-30.0) sec Sodium 143 (137-145) mmol/L Potassium 4.3 (3.5-5.1) mmol/L Chloride 110 H (98-107) mmol/L Carbon Dioxide 22 (22-30) mmol/L Anion Gap 11 mmol/L BUN 12 (9-20) mg/dL Creatinine 1.05 (0.66-1.25) mg/dL Est GFR (CKD-EPI)AfAm 84 (>60 ml/min/1.73 sqM) Est GFR (CKD-EPI)NonAf 73 (>60 ml/min/1.73 sqM) Glucose 104 H (74-99) mg/dL Calcium 9.6 (8.4-10.2) mg/dL Total Bilirubin 0.5 (0.2-1.3) mg/dL AST 19 (17-59) U/L ALT 33 (21-72) U/L Alkaline Phosphatase 104 (38-126) U/L Ammonia <9 (<30) umol/L Troponin I (0.000-0.034) ng/mL Total Protein 6.8 (6.3-8.2) g/dL Albumin 4.0 (3.5-5.0) g/dL Urine Color Urine Appearance (Clear) Urine pH (5.0-8.0) Ur Specific [place] (1.001-1.035) Urine Protein (Negative) Urine Glucose (UA) (Negative) Urine Ketones (Negative) Urine Blood (Negative) Urine Nitrite (Negative) Urine Bilirubin (Negative) Urine Urobilinogen (<2.0) mg/dL Ur Leukocyte Esterase (Negative) Urine Opiates Screen (NotDetected) Ur Oxycodone Screen (NotDetected) Urine Methadone Screen (NotDetected) Ur Propoxyphene Screen (NotDetected) Ur Barbiturates Screen (NotDetected) U Tricyclic Antidepress (NotDetected) Ur Phencyclidine Scrn (NotDetected) Ur Amphetamines Screen (NotDetected) U Methamphetamines Scrn (NotDetected) U Benzodiazepines Scrn (NotDetected) Urine Cocaine Screen (NotDetected) U Marijuana (THC) Screen (NotDetected) Serum Alcohol <10 mg/dL 02/22/19 02/22/19 02/22/19 Range/Units 10:25 10:25 10:25 WBC (3.8-10.6) k/uL RBC (4.30-5.90) m/uL Hgb (13.0-17.5) gm/dL Hct (39.0-53.0) % MCV (80.0-100.0) fL MCH (25.0-35.0) pg MCHC (31.0-37.0) g/dL RDW (11.5-15.5) % Plt Count (150-450) k/uL Neutrophils % % Lymphocytes % % Monocytes % % Eosinophils % % Basophils % % Neutrophils # (1.3-7.7) k/uL Lymphocytes # (1.0-4.8) k/uL Monocytes # (0-1.0) k/uL Eosinophils # (0-0.7) k/uL Basophils # (0-0.2) k/uL PT 10.3 (9.0-12.0) sec INR 1.0 (<1.2) APTT 25.9 (22.0-30.0) sec Sodium (137-145) mmol/L Potassium (3.5-5.1) mmol/L Chloride (98-107) mmol/L Carbon Dioxide (22-30) mmol/L Anion Gap mmol/L BUN (9-20) mg/dL Creatinine (0.66-1.25) mg/dL Est GFR (CKD-EPI)AfAm (>60 ml/min/1.73 sqM) Est GFR (CKD-EPI)NonAf (>60 ml/min/1.73 sqM) Glucose (74-99) mg/dL Calcium (8.4-10.2) mg/dL Total Bilirubin (0.2-1.3) mg/dL AST (17-59) U/L ALT (21-72) U/L Alkaline Phosphatase (38-126) U/L Ammonia (<30) umol/L Troponin I <0.012 (0.000-0.034) ng/mL Total Protein (6.3-8.2) g/dL Albumin (3.5-5.0) g/dL Urine Color Yellow Urine Appearance Clear (Clear) Urine pH 5.5 (5.0-8.0) Ur Specific [place] 1.014 (1.001-1.035) Urine Protein Negative (Negative) Urine Glucose (UA) Negative (Negative) Urine Ketones Negative (Negative) Urine Blood Negative (Negative) Urine Nitrite Negative (Negative) Urine Bilirubin Negative (Negative) Urine Urobilinogen <2.0 (<2.0) mg/dL Ur Leukocyte Esterase Negative (Negative) Urine Opiates Screen Not Detected (NotDetected) Ur Oxycodone Screen Not Detected (NotDetected) Urine Methadone Screen Not Detected (NotDetected) Ur Propoxyphene Screen Not Detected (NotDetected) Ur Barbiturates Screen Not Detected (NotDetected) U Tricyclic Antidepress Not Detected (NotDetected) Ur Phencyclidine Scrn Not Detected (NotDetected) Ur Amphetamines Screen Not Detected (NotDetected) U Methamphetamines Scrn Not Detected (NotDetected) U Benzodiazepines Scrn Detected H (NotDetected) Urine Cocaine Screen Not Detected (NotDetected) U Marijuana (THC) Screen Not Detected (NotDetected) Serum Alcohol mg/dL Disposition Clinical Impression: Altered mental status Disposition: ADMITTED IP TO THIS [facility] Referrals: Aaron Felix MD [Primary Care Provider] - 1-2 days Time of Disposition: 13:23
--- NOTE | 2019-02-22 10:58 | CT ---
EXAMINATION TYPE: CT brain uzair paul DATE OF EXAM: 02/22/2019 COMPARISON: HISTORY: Altered mental status. Pain CT DLP: 1414.4 mGycm, Automated exposure control for dose reduction was used. CONTRAST: 0 mL Isovue-300 CT of the brain is performed utilizing 3 mm thick sections through the posterior fossa and 3 mm thick sections through the remaining calvarium. Study is performed within 24 hours of arrival to the hospital. No abnormal hyperdensity is present to suggest an acute intracranial hemorrhage. No mass lesion is evident. No acute infarcts are evident. Right ventricular white matter hypodensity is present, likely on the basis of chronic white matter ischemic changes. Ventricles and sulci are slightly prominent for the patient age. Paranasal sinuses and mastoid air cells within the [id number] are clear. IMPRESSIONS: 1. Mild periventricular white matter ischemic type changes with age-related atrophy CT cervical spine. COMPARISON: None CT of the cervical spine is performed in the axial plane at 2 mm thick sections. Reconstructed image s in the coronal, and sagittal plane are reviewed on the computer. No acute fractures are evident. Vertebral body alignment is normal. There is loss of disc height greater within the mid to lower cervical spine. Some endplate spurring i s noted. No spinal canal stenosis is present. Uncovertebral joint hypertrophy is present causing some moderate narrowing C4-5 bilaterally and severe right and moderate left C5-6 foraminal narrowing. Vertebral body heights are preserved. No spinal canal stenosis is evident. IMPRESSIONS: 1. No acute fracture cervical spine. 2. Degenerative disc changes mid to lower cervical spine. 3. Mid cervical spine foraminal stenosis due to uncovertebral joint hypertrophy.
[2019-02-22 11:18] LABS: Appearance,Urine Clear (Clear); Basophils % (A) 0 %; Bilirubin,Urine Negative (Negative); Blood,Urine Negative (Negative); Color,Urine Yellow; Eosinophils # (A) 0.1 k/uL (0-0.7); Eosinophils % (A) 0 %; Glucose,Urine (UA) Negative (Negative); HCT 39.7 % (39.0-53.0); HGB 13.2 gm/dL (13.0-17.5); Ketones,Urine Negative (Negative); Leukocyte Esterase,Urine Negative (Negative); Lymphocytes # (A) 1.1 k/uL (1.0-4.8); Lymphocytes % (A) 8 %; MCH 31.2 pg (25.0-35.0); MCHC 33.3 g/dL (31.0-37.0); MCV 93.9 fL (80.0-100.0); Mean Platelet Volume 8.2; Monocytes # (A) 1.2 k/uL (0-1.0); Monocytes % (A) 8 %; Neutrophils # (A) 11.2 k/uL (1.3-7.7); Neutrophils % (A) 82 %; Nitrite,Urine Negative (Negative); PH, Urine 5.5 (5.0-8.0); Platelet Count 309 k/uL (150-450); Protein,Urine Negative (Negative); RBC 4.23 m/uL (4.30-5.90); RDW 14.3 % (11.5-15.5); Specific Gravity,Urine 1.014 (1.001-1.035); Urobilinogen,Urine <2.0 mg/dL (<2.0); WBC 13.7 k/uL (3.8-10.6)
[2019-02-22 11:27] LABS: ALT 33 U/L (21-72); AST 19 U/L (17-59); African American GFR (CKD) 84 (>60 ml/min/1.73 sqM); Alcohol <10 mg/dL; Alkaline Phosphatase 104 U/L (38-126); Anion Gap 11 mmol/L; Blood Urea Nitrogen 12 mg/dL (9-20); Calcium 9.6 mg/dL (8.4-10.2); Carbon Dioxide 22 mmol/L (22-30); Chloride 110 mmol/L (98-107); Glucose 104 mg/dL (74-99); Non-African American GFR(CKD) 73 (>60 ml/min/1.73 sqM); Potassium 4.3 mmol/L (3.5-5.1); Sodium 143 mmol/L (137-145); Total Bilirubin 0.5 mg/dL (0.2-1.3); Total Protein 6.8 g/dL (6.3-8.2)
[2019-02-22 11:38] LABS: Amphetamine Screen,Urine Not Detected (NotDetected); Barbiturate Screen,Urine Not Detected (NotDetected); Benzodiazepines Screen,Urine Detected (NotDetected); Cocaine Screen,Urine Not Detected (NotDetected); Methadone Screen, Urine Not Detected (NotDetected); Opiate Screen,Urine Not Detected (NotDetected); Oxycodone Screen, Urine Not Detected (NotDetected); Phencyclidine Screen,Urine Not Detected (NotDetected); Tricyclic Antidepressant,Urine Not Detected (NotDetected); Urn Cannabinoid Scrn Not Detected (NotDetected)
[2019-02-22 11:49] LABS: Partial Thromboplastin Time 25.9 sec (22.0-30.0); Prothrombin Time 10.3 sec (9.0-12.0)
--- NOTE | 2019-02-22 12:06 | XR ---
EXAMINATION TYPE: XR chest 2V DATE OF EXAM: 02/22/2019 COMPARISON: 09/07/2017 TECHNIQUE: PA and lateral views submitted. HISTORY: Altered mental status FINDINGS: The lungs are clear and there is no pneumothorax, pleural effusion, or focal pneumonia. Coarsened i nterstitium. Limited inspiration. Hypertrophic and degenerative change of the spine. Subsegmental con solidation noted. IMPRESSION: 1. Interstitium is prominent which may be related to reduced inspiration. Interstitial venous congest ion or pneumonitis in the differential diagnosis. Lateral view demonstrates areas of subsegmental ate lectasis or early infiltrate correlate clinically.
[2019-02-22 13:36] LABS: Glucose,Whole Blood 117 mg/dL (75-99)
[2019-02-22 15:08] VITALS: BMI 28.8
[2019-02-22] MEDS: METOPROLOL SUCCINATE (ER) 25 MG TAB.ER.24H PO SCH (22:00)
[2019-02-22] MEDS: ISOSORBIDE MONONITRATE ER 30 MG TAB.ER.24H PO SCH (22:00)
[2019-02-22] MEDS: PANTOPRAZOLE 40 MG TABLET PO SCH (22:00)
[2019-02-22] MEDS: ATORVASTATIN 40 MG TAB PO SCH (22:00)
[2019-02-22] MEDS: LISINOPRIL 10 MG TAB PO SCH (22:03)
[2019-02-22] MEDS: EZETIMIBE 10 MG TAB PO SCH (22:10)
--- NOTE | 2019-02-22 22:29 | P.HPIM ---
History of Present Illness H&P Date: 02/22/19 Chief Complaint: Altered consciousness History of presenting complaint: This is a 68-year-old patient of Dr. Felix. EMS was called out by the neighbor. Patient's friend had gone to was at the patient. Patient was found laying on the floor between a chair at the end table naked. According to the friend patient was recently in [facility] and was admitted therefore seizures and also had a cardiac arrest. On the floor when I came to see of the patient patient is arousable but does mumbles does look at me but not able to give any history at all. Patient is moving his limbs. No other history is available. He does state history indicated includes coronary artery disease can't hyperlipidemia hypertension. Per the daughter history given to the supportive staff that patient had taken a fall a week ago with head injury and new-onset seizures. And was at [facility] in [place]. He was on life support and was extubated. Admitting review of systems: Unable to obtain as patient unable to give any history Social history: Lives alone. Has home care service. Patient be smoking since 1961. Also smokes a joint today. Alcohol history unknown. Family history: Father from a stroke Physical examination: VITAL SIGNS: 98.9, 91, 20, 134/72, 96% on 2 L GENERAL: BMI 28.8, laying in bed lethargic but arousable, patient does attempt to mumble. EYES: Pupils equal. Conjunctiva normal. HEENT: External appearance of nose and ears normal, oral cavity grossly normal. NECK: JVD unable to assess; masses not palpable. HEART: First and second heart sounds are normal; no edema. LUNGS: Respiratory rate normal; decreased breath sounds. ABDOMEN: Soft, nontender, liver spleen not palpable, no masses palpable. PSYCH: Lethargic, attending to mumble something. Unable to assess furtherl. NEUROLOGICAL: Cranial nerves grossly intact; no facial asymmetry, patient is moving all 4 limbs, sensation grossly preserved. LYMPHATICS: No lymph nodes palpable in the axilla and neck Investigations: White count 13.7 hemoglobin 13.2 potassium 4.3 creatinine 1.05 EKG normal sinus rhythm Computed tomography scan of the head and cervical spine-nonspecific except some moderate narrowing of C4-C5 bilaterally and severe right and moderate left C5-C6 follow minimal narrowing Chest x-ray film personally reviewed by me shows some venous prominence/atelect asis Assessment: -This is a patient who was found with altered mental status naked on the floor. Patient is not entirely unconscious but is mumbling at times. Recently was admitted to an outside hospital with a diagnosis of seizure. Patient will could've had a seizure and could be in a postictal state. -Coronary artery disease with stent -GERD -Hyperlipidemia -Essential hypertension -Primary osteoarthritis -Chronic marijuana use -Chronic nicotine dependence patient cigarette smoker Plan: Patient admitted to the medical floor. Neuro checks are in place. Fall precautions. Seizure precautions. Neurology was consulted. We'll do an EEG. Patient is not safe to take oral medications. I don't see patient and any seizure medication. We will use a Catapres patch her blood pressure goes up. Currently no family the bedside. Past Medical History Past Medical History: Coronary Artery Disease (CAD), CVA/TIA, GERD/Reflux, Hyperlipidemia, Hypertension, Liver Disease, Myocardial Infarction ([place]), Vascular Disorder Additional Past Medical History / Comment(s): Dre Mejia, states pt was admitted about one week ago after a fall with head injury/new onset seizures and was hospitalized at [facility] in [place]. He was on life support and was extubated and had one more seizure. She states he was confused and carrera ucinating prior to discharge. 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 Last Myocardial Infarction Date:: 2011 History of Any Multi-Drug Resistant Organisms: None Reported Past Surgical History: Heart Catheterization With Stent, Orthopedic Surgery Additional Past Surgical History / Comment(s): PCI with a total of 7 stents per pt, L caratid endartectomy, L shoulder surgery for injury, R knee/R hip/R elbow/R wrist ligament/tendon type surgeries injuries-has pins in hand, colonoscopy. Past Anesthesia/Blood Transfusion Reactions: No Reported Reaction Date of Last Stent Placement:: 2011 Smoking Status: Current every day smoker - Past Family History Father Family Medical History: CVA/TIA Additional Family Medical History / Comment(s): Father is from CVA. Pt states father from "stupidity." Mother Family Medical History: Diabetes Mellitus Additional Family Medical History / Comment(s): Mother from diabetes at the age of 52 yrs. Brother(s) Family Medical History: Diabetes Mellitus Additional Family Medical History / Comment(s): Brother at the age of 32 yrs from type 1 diabetes. Medications and Allergies Home Medications Medication Instructions Recorded Confirmed Type Aspirin 325 mg PO HS 09/07/17 02/22/19 History Ezetimibe/Simvastatin [Vytorin 1 tab PO HS 09/07/17 02/22/19 History 10-80 mg Tablet] Isosorbide Mononitrate ER [Imdur] 30 mg PO HS 09/07/17 02/22/19 History Lisinopril [Zestril] 10 mg PO HS 09/07/17 02/22/19 History Metoprolol Succinate (ER) [Toprol 25 mg PO HS 09/07/17 02/22/19 History XL] Pantoprazole [Protonix] 40 mg PO HS 09/07/17 02/22/19 History SUMAtriptan SUCCINATE [Imitrex] 50 mg PO BID PRN 09/07/17 02/22/19 History Temazepam [Restoril] 30 mg PO HS 09/07/17 02/22/19 History amLODIPine [Norvasc] 5 mg PO HS 09/07/17 02/22/19 History busPIRone HCl [Buspar] 20 mg PO BID 09/07/17 02/22/19 History traMADol HCL [Ultram] 50 mg PO BID PRN 09/07/17 02/22/19 History Dicyclomine HCl 20 mg PO BID 02/22/19 02/22/19 History Metoprolol Tartrate [Lopressor] 100 mg PO DAILY 02/22/19 02/22/19 History Allergies Allergy/AdvReac Type Severity Reaction Status Date / Time codeine Allergy Rash/Hives Verified 02/22/19 10:35 zolpidem [From Ambien] AdvReac "salty" Verified 02/22/19 10:35 taste in mouth, numb mouth Physical Exam Vitals: Vital Signs Temp Pulse Pulse Resp BP BP Pulse Ox 02/22/19 20:00 98.9 F 91 20 134/72 96 02/22/19 18:29 98.5 F 83 16 111/71 96 02/22/19 17:31 18 02/22/19 16:50 80 28 H 144/74 02/22/19 16:40 81 6 L 151/72 02/22/19 16:30 86 11 L 161/78 02/22/19 16:20 83 16 161/78 02/22/19 16:10 89 12 141/71 02/22/19 16:00 82 19 144/81 02/22/19 15:50 81 22 144/81 02/22/19 15:40 80 27 H 144/75 02/22/19 15:30 86 24 142/77 02/22/19 15:20 83 20 142/77 02/22/19 15:10 84 14 154/89 02/22/19 15:00 84 17 147/83 02/22/19 14:50 87 23 147/83 02/22/19 14:40 74 17 146/113 02/22/19 14:30 87 7 L 147/86 02/22/19 14:20 86 11 L 147/86 02/22/19 14:10 77 11 L 136/82 02/22/19 14:00 92 30 H 117/74 02/22/19 13:50 77 5 L 117/74 02/22/19 13:40 89 15 157/76 02/22/19 13:30 18 147/84 02/22/19 13:20 79 12 147/84 02/22/19 13:10 79 4 L 129/80 02/22/19 13:00 76 10 L 134/87 96 02/22/19 12:50 82 14 134/87 93 L 02/22/19 12:40 74 16 132/79 94 L 02/22/19 12:30 89 23 136/76 94 L 02/22/19 12:20 83 18 136/76 94 L 02/22/19 12:10 81 14 134/73 94 L 02/22/19 12:04 0 L 19 02/22/19 11:42 85 16 144/77 02/22/19 10:13 84 18 139/93 98 Intake and Output 02/22/19 02/22/19 02/22/19 06:59 14:59 22:59 Intake Total 200 Output Total 1700 850 Balance -1700 -650 Intake: Intake, IV Titration 200 Amount Sodium Chloride 0.9% 1, 200 000 ml @ 100 mls/hr IV . Q10H ONE Rx#:[id number] Output: Urine 1700 850 Uretheral (Romero) 850 Other: Voiding Method Indwelling Catheter # Voids 1 Weight 91 kg Results CBC & Chem 7: 02/22/19 10:25 02/22/19 10:25 Labs: Abnormal Lab Results - Last 24 Hours (Table) 02/22/19 02/22/19 02/22/19 Range/Units 10:25 10:25 10:25 WBC 13.7 H (3.8-10.6) k/uL RBC 4.23 L (4.30-5.90) m/uL Neutrophils # 11.2 H (1.3-7.7) k/uL Monocytes # 1.2 H (0-1.0) k/uL Chloride 110 H (98-107) mmol/L Glucose 104 H (74-99) mg/dL POC Glucose (mg/dL) (75-99) mg/dL U Benzodiazepines Scrn Detected H (NotDetected) 02/22/19 Range/Units 13:34 WBC (3.8-10.6) k/uL RBC (4.30-5.90) m/uL Neutrophils # (1.3-7.7) k/uL Monocytes # (0-1.0) k/uL Chloride (98-107) mmol/L Glucose (74-99) mg/dL POC Glucose (mg/dL) 117 H (75-99) mg/dL U Benzodiazepines Scrn (NotDetected) Thrombosis Risk Factor Assmnt - Choose All That Apply Any of the Below Risk Factors Present?: Yes Each Factor Represents 1 point: Obesity (BMI >25) Other Risk Factors: Yes Each Risk Factor Represents 2 Points: Age 61-74 years Other congenital or acquired thrombophilia - If yes, enter type in comment: No Thrombosis Risk Factor Assessment Total Risk Factor Score: 3 Thrombosis Risk Factor Assessment Level: Moderate Risk
[2019-02-23] MEDS ORDERED: HALOPERIDOL LACTATE 5 MG/ML 1 ML VIAL IM STA ×2 (01:18→02:33)
[2019-02-23] MEDS: METOPROLOL TARTRATE 50 MG TAB PO SCH (10:57)
[2019-02-23] MEDS: busPIRone HCl 10 MG TAB PO SCH ×2 (10:58→19:49)
[2019-02-23] MEDS: DICYCLOMINE 20 MG TAB PO SCH ×2 (10:58→19:50)
--- NOTE | 2019-02-23 14:25 | P.CNNES ---
History of Present Illness Consult date: 02/23/19 Reason for Consult: AMS Chief complaint: AMS History of Present Illness: REFERRING PHYSICIAN: Dr. Stephane El HISTORY OF PRESENT ILLNESS: Thank you for allowing me to evaluate Mr. James. Mr. James is a 68-year-old man with past medical history of coronary artery disease, CVA/TIA, GERD, hyperlipidemia, hypertension, liver disease, OR, possible seizure episode, presenting with acute mental status change. Of note, patient is with a sitter in restraints. Patient is very uncooperative. Does not want to answer questions although speech is fluent. The history provided hears from the H&P. Apparently, patient was found by his friend, lying on the floor between the chair and a table naked. The friend stated that patient was recently admitted to [facility] possibly for seizures and also had a cardiac arrest. Per the daughter, patient had fallen causing head injury and had new onset seizures. Patient was at [facility] in [place]. At that time, patient was on life support and was extubated. No seizures observed since patient was admitted. PAST MEDICAL HISTORY: Coronary artery disease, CVA/TIA, GERD, hyperlipidemia, hypertension, liver disease, OR, possible seizure episode PAST SURGICAL HISTORY: Heart catheterization with stent, left carotid endarterectomy, left shoulder surgery for injury, colonoscopy HOME MEDICATIONS: Tramadol when necessary, temazepam 30 mg daily at bedtime, and to resolve 40 mg daily at bedtime, metoprolol 125 daily, simvastatin, buspirone 20 mg twice a day, Imitrex 50 mg twice a day when necessary, lisinopril 10 mg daily, Imdur 30 mg daily, motor repeat 5 mg daily, aspirin 325 daily, Keppra questionable 1000 mg daily ALLERGIES: Codeine and zolpidem SOCIAL HISTORY: Lives alone. Every day smoker. No known alcohol or drug abuse history FAMILY HISTORY: Father from a stroke REVIEW OF SYSTEMS: The 14 systems are reviewed and no additional points are identified compared to the review of systems documented history and physical PHYSICAL EXAMINATION: VITAL SIGNS: Temperature 90.9, pulse rate 79, respiratory rate 18, blood pressure 115/65, O2 saturation 97% on nasal cannula 2 L GEN.: Not in acute distress, patient in restraints, patient very uncooperative. HEENT: Grossly atraumatic. SKIN AND EXTREMITIES: Warm to touch, no edema NEURO: MENTAL STATUS:Patient awake and alert not answering any questions appropriately. When asked to name my thumb, patient showed me his left middle finger and said this is what that is. CRANIAL NERVES II THROUGH XII: II: No facial asymmetry. No gaze deviation. Facial muscles are grossly intact. MOTOR: Observed to spontaneously moves all 4 extremities.: SENSORY: Withdraws to pain in all 4 extremities. Pain applied as patient refused to move his extremities. REFLEXES/COORDINATION/GAIT: Deferred due to patient being uncooperative. DIAGNOSTIC TESTING: LABORATORY: WBC 13.7 hemoglobin 13.2 hematocrit 39.7 platelets 309 PT 10.3 INR 1.0 sodium 143 potassium 4.3 chloride 110 bicarb 22 BUN 12 creatinine 1.05 glucose 104 AST 19 ALT 33 alk phos 104 ammonia <9 troponins <0.012 urinalysis negative U tox positive for benzo Keppra level 120.7 IMAGING: CT head without contrast 02/22/2019: Mild periventricular white matter ischemic type changes with age-related atrophy. CT C-spine without contrast 02/22/2019: No acute fracture of cervical spine. Degenerative disc changes to lower cervical spine. Mid cervical spine foraminal stenosis due to uncovertebral joint hypertrophy ASSESSMENT: Mr. James is a 68-year-old man with past medical history of coronary artery disease, CVA/TIA, GERD, hyperlipidemia, hypertension, liver disease, OR, possible seizure episode, presenting with acute mental status change. Unclear what patient's baseline personality is, but difficult to examine obtain history from the patient as patient is very uncooperative. however patient with a re cent history of possible new onset seizures. Appears the patient was started on Keppra for his new onset seizures. Keppra can cause agitation. Appears the patient was compliant with this medication. We will change this seizure medication from Keppra to phenytoin RECOMMENDATIONS: 1. Routine EEG. 2. Decrease home medication of Keppra to 750 mg twice a day 3. Start phenytoin 100 mg PO TID at bedtime. 4. Patient needs outpatient follow-up with a neurologist within 1-2 weeks of discharge. 5. Neurology will continue to follow Past Medical History Past Medical History: Coronary Artery Disease (CAD), CVA/TIA, GERD/Reflux, Hyperlipidemia, Hypertension, Liver Disease, Myocardial Infarction (OR), Vascular Disorder Additional Past Medical History / Comment(s): Jackie, Dre, states pt was adm itted about one week ago after a fall with head injury/new onset seizures and was hospitalized at [facility] in [place]. He was on life support and was extubated and had one more seizure. She states he was confused and hallucinating prior to discharge. 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 Last Myocardial Infarction Date:: 2011 History of Any Multi-Drug Resistant Organisms: None Reported Past Surgical History: Heart Catheterization With Stent, Orthopedic Surgery Additional Past Surgical History / Comment(s): PCI with a total of 7 stents per pt, L caratid endartectomy, L shoulder surgery for injury, R knee/R hip/R elbow/R wrist ligament/tendon type surgeries injuries-has pins in hand, colonoscopy. Past Anesthesia/Blood Transfusion Reactions: No Reported Reaction Date of Last Stent Placement:: 2011 Smoking Status: Current every day smoker - Past Family History Father Family Medical History: CVA/TIA Additional Family Medical History / Comment(s): Father is from CVA. Pt states father from "stupidity." Mother Family Medical History: Diabetes Mellitus Additional Family Medical History / Comment(s): Mother from diabetes at the age of 52 yrs. Brother(s) Family Medical History: Diabetes Mellitus Additional Family Medical History / Comment(s): Brother at the age of 32 yrs from type 1 diabetes. Medications and Allergies Home Medications Medication Instructions Recorded Confirmed Type Aspirin 325 mg PO HS 09/07/17 02/22/19 History Ezetimibe/Simvastatin [Vytorin 1 tab PO HS 09/07/17 02/22/19 History 10-80 mg Tablet] Isosorbide Mononitrate ER [Imdur] 30 mg PO HS 09/07/17 02/22/19 History Lisinopril [Zestril] 10 mg PO HS 09/07/17 02/22/19 History Metoprolol Succinate (ER) [Toprol 25 mg PO HS 09/07/17 02/22/19 History XL] Pantoprazole [Protonix] 40 mg PO HS 09/07/17 02/22/19 History SUMAtriptan SUCCINATE [Imitrex] 50 mg PO BID PRN 09/07/17 02/22/19 History Temazepam [Restoril] 30 mg PO HS 09/07/17 02/22/19 History amLODIPine [Norvasc] 5 mg PO HS 09/07/17 02/22/19 History busPIRone HCl [Buspar] 20 mg PO BID 09/07/17 02/22/19 History traMADol HCL [Ultram] 50 mg PO BID PRN 09/07/17 02/22/19 History Dicyclomine HCl 20 mg PO BID 02/22/19 02/22/19 History Metoprolol Tartrate [Lopressor] 100 mg PO DAILY 02/22/19 02/22/19 History levETIRAcetam 1,000 mg 02/23/19 History Allergies Allergy/AdvReac Type Severity Reaction Status Date / Time codeine Allergy Rash/Hives Verified 02/22/19 10:35 zolpidem [From Ambien] AdvReac "salty" Verified 02/22/19 10:35 taste in mouth, numb mouth Physical Examination - Vital Signs Vital Signs: Vital Signs Temp Pulse Pulse Resp BP BP Pulse Ox 02/23/19 04:00 99 F 79 18 115/65 97 02/23/19 03:27 18 02/22/19 23:47 98.3 F 87 18 137/83 96 02/22/19 23:23 87 18 02/22/19 20:11 91 20 02/22/19 20:00 98.9 F 91 20 134/72 96 02/22/19 18:29 98.5 F 83 16 111/71 96 02/22/19 17:31 18 02/22/19 16:50 80 28 H 144/74 02/22/19 16:40 81 6 L 151/72 02/22/19 16:30 86 11 L 161/78 02/22/19 16:20 83 16 161/78 02/22/19 16:10 89 12 141/71 02/22/19 16:00 82 19 144/81 02/22/19 15:50 81 22 144/81 02/22/19 15:40 80 27 H 144/75 02/22/19 15:30 86 24 142/77 02/22/19 15:20 83 20 142/77 02/22/19 15:10 84 14 154/89 02/22/19 15:00 84 17 147/83 02/22/19 14:50 87 23 147/83 02/22/19 14:40 74 17 146/113 02/22/19 14:30 87 7 L 147/86 02/22/19 14:20 86 11 L 147/86 02/22/19 14:10 77 11 L 136/82 02/22/19 14:00 92 30 H 117/74 02/22/19 13:50 77 5 L 117/74 02/22/19 13:40 89 15 157/76 02/22/19 13:30 18 147/84 02/22/19 13:20 79 12 147/84 02/22/19 13:10 79 4 L 129/80 02/22/19 13:00 76 10 L 134/87 96 02/22/19 12:50 82 14 134/87 93 L 02/22/19 12:40 74 16 132/79 94 L 02/22/19 12:30 89 23 136/76 94 L 02/22/19 12:20 83 18 136/76 94 L 02/22/19 12:10 81 14 134/73 94 L 02/22/19 12:04 0 L 19 02/22/19 11:42 85 16 144/77 02/22/19 10:13 84 18 139/93 98 Intake and Output 02/22/19 02/23/19 02/23/19 22:59 06:59 14:59 Intake Total 200 200 Output Total 850 550 Balance -650 -350 Intake: Intake, IV Titration 200 Amount Sodium Chloride 0.9% 1, 200 000 ml @ 100 mls/hr IV . Q10H ONE Rx#:[id number] Oral 200 Output: Urine 850 550 Other: Voiding Method Indwelling Catheter Indwelling Catheter # Voids 1 2 Weight 77.5 kg Results - Laboratory Findings CBC and BMP: 02/22/19 10:25 02/22/19 10:25 Abnormal Lab Findings: Abnormal Labs 02/22/19 02/22/19 02/22/19 10:25 10:25 10:25 WBC 13.7 H RBC 4.23 L Neutrophils # 11.2 H Monocytes # 1.2 H Chloride 110 H Glucose 104 H POC Glucose (mg/dL) Levetiracetam U Benzodiazepines Scrn Detected H 02/22/19 02/22/19 10:25 13:34 WBC RBC Neutrophils # Monocytes # Chloride Glucose POC Glucose (mg/dL) 117 H Levetiracetam 120.7 H U Benzodiazepines Scrn
[2019-02-23] MEDS: traMADol 50 MG TAB PO PRN (15:05)
[2019-02-23] MEDS: PHENYTOIN ORAL SUSP 100 MG/4 ML CUP PO SCH ×2 (15:08→19:52)
--- NOTE | 2019-02-23 19:17 | EEG ---
ELECTROENCEPHALOGRAM REPORT PROCEDURE DATE: 02/23/2019. ELECTROENCEPHALOGRAM (EEG) REPORT: TECHNIQUE: A routine 18 channel EEG was performed with video using the 10/20 international placement system. HISTORY: Patient found in his home by his neighbor lying on the floor. The patient was recently admitted to [facility] for seizures and went into cardiac arrest ?. The patient suffered a fall a few weeks ago that led to head injury and new onset seizures. CURRENT MEDICATIONS: Ultram, Imitrex, Protonix, metoprolol, lisinopril, Imdur. STUDY DURATION: 20 minutes. FINDINGS: Background: The background activity consisted of unsustained 7 - 8 hertz rhythmic waveforms with some intermixed theta range slowing. ACTIVATION: Hyperventilation: Not performed. Photic stimulation: Not performed. Sleep: Drowsy. ABNORMALITIES: Intermittent diffuse 4-6 hertz polymorphic theta range slowing was seen. IMPRESSION: Abnormal EEG. The diffuse theta range slowing mentioned above is not epileptiform in nature. In combination with the slow background, these findings indicate mild diffuse cerebral dysfunction as may be seen in a toxic metabolic encephalopathy. No seizures were recorded. No epileptiform activity was present. MMODL / IJN: [id number] / [facility]ATION HOSPITALJo Ann
[2019-02-23] MEDS: ATORVASTATIN 40 MG TAB PO SCH (19:48)
[2019-02-23] MEDS: ASPIRIN 325 MG TAB PO SCH (19:48)
[2019-02-23] MEDS: METOPROLOL SUCCINATE (ER) 25 MG TAB.ER.24H PO SCH (19:49)
[2019-02-23] MEDS: PANTOPRAZOLE 40 MG TABLET PO SCH (19:49)
[2019-02-23] MEDS: LISINOPRIL 10 MG TAB PO SCH (19:49)
[2019-02-23] MEDS: ISOSORBIDE MONONITRATE ER 30 MG TAB.ER.24H PO SCH (19:50)
[2019-02-23] MEDS: EZETIMIBE 10 MG TAB PO SCH (19:50)
--- NOTE | 2019-02-24 00:18 | P.PN ---
Progress Note - Text Progress Note Date: 02/23/19 Chief Complaint: Altered consciousness History of presenting complaint: This is a 68-year-old patient of Dr. Felix. EMS was called out by the neighbor. Patient's friend had gone to was at the patient. Patient was found laying on the floor between a chair at the end table naked. According to the friend patient was recently in [facility] and was admitted therefore seizures and also had a cardiac arrest. On the floor when I came to see of the patient patient is arousable but does mumbles does look at me but not able to give any history at all. Patient is moving his limbs. No other history is available. He does state history indicated includes coronary artery disease can't hyperlipidemia hypertension. Per the daughter history given to the supportive staff that patient had taken a fall a week ago with head injury and new-onset seizures. And was at [facility] in [place]. He was on life support and was extubated. Today-patient bit more awake answering some questions. A bit delirious. Was getting an EEG. Neurology of the case. Review of systems: Was done for constitutional, cardiovascular, GI, pulmonary. relevant finding as above Active Medications Aspirin (Aspirin) 325 mg PO [facility] Last Admin: 02/23/19 19:48 Dose: 325 mg Documented by: Atorvastatin Calcium (Lipitor) 40 mg PO [facility] Last Admin: 02/23/19 19:48 Dose: 40 mg Documented by: Buspirone HCl (Buspar) 20 mg PO BID [facility] Last Admin: 02/23/19 19:49 Dose: 20 mg Documented by: Dicyclomine HCl (Bentyl) 20 mg PO BID [facility] Last Admin: 02/23/19 19:50 Dose: 20 mg Documented by: Ezetimibe (Zetia) 10 mg PO [facility] Last Admin: 02/23/19 19:50 Dose: 10 mg Documented by: Isosorbide Mononitrate (Imdur) 30 mg PO [facility] Last Admin: 02/23/19 19:50 Dose: 30 mg Documented by: Levetiracetam (Keppra) 750 mg PO Q12HR [facility] Last Admin: 02/23/19 19:49 Dose: 750 mg Documented by: Lisinopril (Zestril) 10 mg PO [facility] Last Admin: 02/23/19 19:49 Dose: 10 mg Documented by: Metoprolol Succinate (Toprol Xl) 25 mg PO HS [facility] Last Admin: 02/23/19 19:49 Dose: 25 mg Documented by: Metoprolol Tartrate (Lopressor) 100 mg PO DAILY [facility] Last Admin: 02/23/19 10:57 Dose: 100 mg Documented by: Pantoprazole Sodium (Protonix) 40 mg PO HS [facility] Last Admin: 02/23/19 19:49 Dose: 40 mg Documented by: Phenytoin Sodium (Dilantin Oral Susp) 100 mg PO TID [facility] Last Admin: 02/23/19 19:52 Dose: 100 mg Documented by: Sumatriptan Succinate (Imitrex) 50 mg PO BID PRN PRN Reason: Headache Tramadol HCl (Ultram) 50 mg PO BID PRN PRN Reason: Pain Last Admin: 02/23/19 15:05 Dose: 50 mg Documented by: Physical examination: VITAL SIGNS: 98.6, 84, 18, 139/77, 97% on 2 L GENERAL: Laying in bed. Bit more awake. No slightly lethargic. Able to answer some questions EYES: Pupils equal. Conjunctiva normal. HEENT: External appearance of nose and ears normal, oral cavity grossly normal. NECK: JVD unable to assess; masses not palpable. HEART: First and second heart sounds are normal; no edema. LUNGS: Respiratory rate normal; decreased breath sounds. ABDOMEN: Soft, nontender, liver spleen not palpable, no masses palpable. PSYCH: Able to answer some questions today. A bit anxious. NEUROLOGICAL: Cranial nerves grossly intact; no facial asymmetry, patient is moving all 4 limbs, sensation grossly preserved. Investigations: Urine drug screen-high and Keppra 120 and benzodiazepine positive Admission labs White count 13.7 hemoglobin 13.2 potassium 4.3 creatinine 1.05 EKG normal sinus rhythm Computed tomography scan of the head and cervical spine-nonspecific except some moderate narrowing of C4-C5 bilaterally and severe right and moderate left C5-C6 follow minimal narrowing Chest x-ray film personally reviewed by me shows some venous prominence/atelectasis Assessment: -Possible Keppra toxicity, causing metabolic encephalopathy and possible delirium, slow to respond -Coronary artery disease with stent -GERD -Hyperlipidemia -Essential hypertension -Primary osteoarthritis -Chronic marijuana use -Chronic nicotine dependence patient cigarette smoker Plan: Continue current medication treatment plan. Keep on telemetry. Neurology decrease in dose of Keppra and adding phenytoin. Keep a close and the patient. The patient telemetry. Keep sitter
[2019-02-24] MEDS: DICYCLOMINE 20 MG TAB PO SCH ×2 (08:40→21:13)
[2019-02-24] MEDS: METOPROLOL TARTRATE 50 MG TAB PO SCH (08:40)
[2019-02-24] MEDS: busPIRone HCl 10 MG TAB PO SCH ×2 (08:40→21:13)
[2019-02-24] MEDS: PHENYTOIN ORAL SUSP 100 MG/4 ML CUP PO SCH ×3 (08:41→21:03)
[2019-02-24] MEDS: traMADol 50 MG TAB PO PRN ×2 (08:46→18:58)
[2019-02-24] MEDS ORDERED: PHENYTOIN SODIUM EXTENDED 100 MG CAP PO STA (10:12)
[2019-02-24] MEDS ORDERED: PHENYTOIN SODIUM INJ 50 MG/ML 2 ML VIAL IV ONE (10:22)
[2019-02-24 10:52] LABS: Glucose,Whole Blood 96 mg/dL (75-99)
[2019-02-24] MEDS ORDERED: PHENYTOIN SODIUM IVPB ONE (11:00)
[2019-02-24] MEDS ORDERED: SODIUM CHLORIDE 0.9% IVPB ONE (11:00)
--- NOTE | 2019-02-24 11:48 | CONS ---
CONSULTATION PULMONARY/CRITICAL CARE CONSULTATION: DATE OF CONSULTATION: February 24, 2019 This is a 68-year-old gentleman who was brought into the emergency room on February 22. He apparently was found by a friend down on the floor and was thought to have a recurrent seizure. The patient was apparently seen by EMS. He was mumbling and was able to follow some very basic commands. He was seen in the emergency room, admitted to the hospital with a diagnosis of mental status changes and a recurrent seizure disorder. The patient has a very interesting and detailed history of recently having a new onset seizure. The patient apparently fell, hit his head, had a seizure and subsequent to that had a cardiac arrest. He was taken care of at [facility] in [place]. The patient was apparently on the ventilator for some period of time. After that, he was discharged home and now he comes back in with what appears to be a recurrent seizure. He has already been seen by the hospitalist and has been seen by the neurologist. Today, he apparently had 2 or 3 seizures on the floor and we transferred him to the ICU for better monitoring and closer observation and treatment. HOME MEDICATIONS: His home medications include aspirin, Vytorin, Imdur, lisinopril, metoprolol, Protonix, Imitrex, Restoril, Norvasc, BuSpar, Ultram, dicyclomine, Lopressor and Keppra. ALLERGIES: Allergies are CODEINE and AMBIEN. MEDICAL HISTORY: Medical history includes CAD, CVA, GERD, hyperlipidemia, hypertension, hepatitis C, myocardial infarction, cardiac arrest 2011 when he had a myocardial infarction, migraine cephalgia, arthritis, visual impairment, and previous tobacco history. SURGICAL HISTORY: Surgical history includes heart catheterization with stent, PCI with a total of 7 stents, left carotid endarterectomy, left shoulder surgery, right knee, right hip, right elbow, right wrist injuries with surgical intervention, colonoscopy among other procedures. SOCIAL HISTORY: Social history is positive for current everyday tobacco use. Alcohol use is not known. He apparently denies it. He denies any illicit drug use. FAMILY HISTORY: Family history is significant for a father who is . It states here that his father from stupidity. Mother apparently from diabetes at age 52. Rest of the family history is not known. REVIEW OF SYSTEMS: CONSTITUTIONAL: Negative. NEUROLOGIC: Recurrent seizures. HEENT: Negative. CARDIOVASCULAR: Negative. PULMONARY: Negative. GI: Abdominal discomfort/stabbing pain. : Negative. RHEUMATOLOGIC: Negative. IMMUNOLOGIC: Negative. ENDOCRINOLOGIC: Negative. DERMATOLOGIC: Negative. PHYSICAL EXAMINATION: VITAL SIGNS: Current vital signs include temperature 98.6, heart rate 75, respiratory rate 18, blood pressure 110/57, mean 74, room air saturation 96%. Appears in no acute distress. HEENT: Examination is grossly unremarkable. Mucous membranes are moist. No oral lesions. NECK: Supple. Full range of motion. No adenopathy or thyromegaly. Neck veins are flat. CARDIOVASCULAR: Examination reveals regular rhythm and rate. S1, S2 normal. No distinct murmur noted. LUNGS: Reveal relatively clear breath sounds. No wheezes or rhonchi. Breath sounds are equal bilaterally. No crackles. ABDOMEN: Soft. EXTREMITIES: Are intact. No cyanosis, clubbing, or edema. SKIN: Without rash. NEUROLOGIC: Examination appears to be relatively normal. His speech is a bit slurred and maybe has a bit of a facial droop. LABS: Labs are reviewed. White count 13.7, hemoglobin 13.2, hematocrit 39.7, platelet count 309,000. PT, INR, PTT normal. Sodium and potassium are normal. Chloride 110, CO2 is 22. Anion gap 11. BUN and creatinine were 12 and 1.05. The rest of the labs look okay. Urine is negative. Drug screen was positive for Keppra and benzodiazepine. A chest x-ray on admission shows possible mild interstitial changes and/or interstitial edema. There is borderline cardiomegaly. Head and cervical spine CT shows mild periventricular white matter ischemic type changes with age-related atrophy. CT of the cervical spine shows no acute fractures. MEDICATIONS: Current medications are reviewed. ASSESSMENT: 1. Recurrent seizure disorder. 2. Recent episode of head trauma, subsequent seizures and cardiac arrest requiring intubation and mechanical ventilation at [facility] in [place] with subsequent discharge. 3. Recent new onset seizure secondary to head trauma. 4. History of hepatitis C. 5. History of coronary artery disease with multiple PCIs and multiple stent placements. 6. Hyperlipidemia. 7. Hypertension. 8. Migraine cephalgia. 9. Previous history of cerebrovascular accident. 10.Gastroesophageal reflux disease. 11.Hepatitis C. 12.Previous myocardial infarction. 13.Degenerative joint disease. PLAN: The patient is moved to the ICU. We will make sure that he is watched closely. He has been seen by Neurology. Additional recommendations and suggestions are forthcoming. Currently, his prognosis is guarded. He has got no active hemodynamic or pulmonary issues at this time. Additional recommendations and suggestions are forthcoming. MMODL / IJN: [id number] /
--- NOTE | 2019-02-24 13:45 | P.PN ---
Progress Note - Text Progress Note Date: 02/24/19 SUBJECTIVE/INTERVAL EVENTS: No acute overnight events. This morning, called by RN stating the patient had an episode of this clenching and some shaking of his entire body and lasted for about 5 seconds. About 20 minutes later, patient had another episode lasted for 15-20 seconds. Prior to these episodes, patient had called the nurse stating that he was not feeling good and he felt hot. Patient became postictal after these events. Patient had gotten his morning dose of his medications. After his second episode, patient was transferred to the ICU for closer monitoring and stat EEG. During the EEG, patient also had an episode of physical touching and shaking that lasted for a couple seconds. Will discuss with the ability to follow just regarding this episode whether it matches with a seizure activity on EEG. Patient was given a phenytoin IV load of 750 mg (10 mg/kg dosing). Patient today is much more cooperative and pleasant to talk to. Patient remembers that he was a mean person yesterday because she was feeling frustrated. Unclear why patients is frustrated. Patient lives alone with 2 dogs. His daughter Dre lives in [place]. Patient denies any headache, nausea, diarrhea, vomiting, double or blurry vision, focal weakness, numbness or tingling. PHYSICAL EXAMINATION: VITAL SIGNS: Temperature 98.6, pulse rate 75, respiratory rate 18, blood pressure 110/57, O2 saturation 96% on room air GEN.: Not in acute distress, patient in restraints, patient very uncooperative. HEENT: Grossly atraumatic. SKIN AND EXTREMITIES: Warm to touch, no edema NEURO: MENTAL STATUS:Patient awake and alert not answering any questions appropriately. When asked to name my thumb, patient showed me his left middle finger and said this is what that is. CRANIAL NERVES II THROUGH XII: II: No facial asymmetry. No gaze deviation. Facial muscles are grossly intact. MOTOR: Observed to spontaneously moves all 4 extremities.: SENSORY: Withdraws to pain in all 4 extremities. Pain applied as patient refused to move his extremities. REFLEXES/COORDINATION/GAIT: Deferred due to patient being uncooperative. DIAGNOSTIC TESTING: LABORATORY: WBC 13.7 hemoglobin 13.2 hematocrit 39.7 platelets 309 PT 10.3 INR 1.0 sodium 143 potassium 4.3 chloride 110 bicarb 22 BUN 12 creatinine 1.05 glucose 104 AST 19 ALT 33 alk phos 104 ammonia <9 troponins <0.012 urinalysis negative U tox positive for benzo Keppra level 120.7 IMAGING: CT head without contrast 02/22/2019: Mild periventricular white matter ischemic type changes with age-related atrophy. CT C-spine without contrast 02/22/2019: No acute fracture of cervical spine. Degenerative disc changes to lower cervical spine. Mid cervical spine foraminal stenosis due to uncovertebral joint hypertrophy EEG 02/23/2019: Abnormal EEG. The diffuse theta range slowing mentioned is not epileptiform in nature. Combination with the slow background indicating mild diffuse cerebral dysfunction as may be seen in a toxic metabolic encephalopathy. ASSESSMENT: Mr. James is a 68-year-old man with past medical history of coronary artery disease, CVA/TIA, GERD, hyperlipidemia, hypertension, liver disease, [place], possible seizure episode, presenting with acute mental status change. Unclear what patient's baseline personality is, but difficult to examine obtain history from the patient as patient is very uncooperative. however patient with a recent history of possible new onset seizures. Appears the patient was started on Keppra for his new onset seizures. Keppra can cause agitation. Appears the patient was compliant with this medication. We will change this seizure medication from Keppra to phenytoin RECOMMENDATIONS: 1. Stat EEG final read. On prelim read, no seizure activity. 2. Continue with Keppra to 750 mg twice a day 3. Continue with phenytoin 100 mg PO TID (s/p phenytoin IV load of 750 mg) 4. Patient needs outpatient follow-up with a neurologist within 1-2 weeks of discharge. 5. Neurology will continue to follow
--- NOTE | 2019-02-24 15:51 | EEG ---
ELECTROENCEPHALOGRAM REPORT PROCEDURE DATE: 02/24/2019. ELECTROENCEPHALOGRAM (EEG) REPORT: TECHNIQUE: A routine 18 channel EEG was performed with video using the 10/20 international placement system. HISTORY: Three seizures today. MEDICATIONS: None known. STUDY DURATION: 24 minutes. FINDINGS: Background: The background activity consists of 7-8 hertz rhythmic waveforms symmetrically distributed over both posterior quadrants. ACTIVATION: Hyperventilation: Not performed. Photic stimulation: Mild symmetric driving seen. Sleep: Drowsy. ABNORMALITIES: 1. Intermittent diffuse 5-7 hertz polymorphic theta range slowing was seen. One event was recorded during photic stimulation. In this event at 11:19:15, an intermittent low amplitude right hand tremor was noted. At 11:19:30, a head tremor was noted. At 11:19:41, the patients fists were clenched. This event was not associated with epileptiform activity. IMPRESSION: Abnormal EEG. The diffuse theta range slowing mentioned above is not epileptiform in nature. In combination with the slow background, these findings indicate mild diffuse cerebral dysfunction. No seizures were recorded. No epileptiform activity was present. One event was recorded as described above that was not associated with epileptiform activity. These findings were called to the neurologist taking care of the patient at 3:20 pm on 02/24/2019. MMODL / IJN: [id number] / NEELA
[2019-02-24] MEDS: ASPIRIN 325 MG TAB PO SCH (21:03)
[2019-02-24] MEDS: ISOSORBIDE MONONITRATE ER 30 MG TAB.ER.24H PO SCH (21:04)
[2019-02-24] MEDS: EZETIMIBE 10 MG TAB PO SCH (21:04)
[2019-02-24] MEDS: ATORVASTATIN 40 MG TAB PO SCH (21:04)
[2019-02-24] MEDS: PANTOPRAZOLE 40 MG TABLET PO SCH (21:04)
[2019-02-24] MEDS: METOPROLOL SUCCINATE (ER) 25 MG TAB.ER.24H PO SCH (21:04)
[2019-02-24] MEDS: LISINOPRIL 10 MG TAB PO SCH (21:04)
--- NOTE | 2019-02-24 22:15 | P.PN ---
Progress Note - Text Progress Note Date: 02/24/19 Chief Complaint: Seizure Interval history: This is a 68-year-old patient of Dr. Felix. EMS was called out by the neighbor. Patient's friend had gone to was at the patient. Patient was found laying on the floor between a chair at the end table naked. According to the friend patient was recently in [facility] and was admitted therefore seizures and also had a cardiac arrest. On the floor when I came to see of the patient patient is arousable but does mumbles does look at me but not able to give any history at all. Patient is moving his limbs. No other history is available. He does state history indicated includes coronary artery disease can't hyperli pidemia hypertension. Per the daughter history given to the supportive staff that patient had taken a fall a week ago with head injury and new-onset seizures. And was at [facility] in [place]. He was on life support and was extubated. Today-early hours of the morning today patient is not feeling well. Patient did had 2 witnessed seizures. Nurse called me. Patient has been agitated also. Did ask him to inform neurology. Patient is be moved to the ICU. Consultation to arson investigator being done. Patient had a sitter. Status of the patient and the ICU. Tired but able to answer some questions. Sister and brother were present. Review of systems: Was done for constitutional, cardiovascular, GI, pulmonary. relevant finding as above Active Medications Aspirin (Aspirin) 325 mg PO [facility] Last Admin: 02/24/19 21:03 Dose: 325 mg Documented by: Atorvastatin Calcium (Lipitor) 40 mg PO [facility] Last Admin: 02/24/19 21:04 Dose: 40 mg Documented by: Buspirone HCl (Buspar) 20 mg PO BID [facility] Last Admin: 02/24/19 21:13 Dose: 20 mg Documented by: Dicyclomine HCl (Bentyl) 20 mg PO BID [facility] Last Admin: 02/24/19 21:13 Dose: 20 mg Documented by: Ezetimibe (Zetia) 10 mg PO [facility] Last Admin: 02/24/19 21:04 Dose: 10 mg Documented by: Isosorbide Mononitrate (Imdur) 30 mg PO [facility] Last Admin: 02/24/19 21:04 Dose: 30 mg Documented by: Levetiracetam (Keppra) 750 mg PO Q12HR [facility] Last Admin: 02/24/19 21:13 Dose: 750 mg Documented by: Lisinopril (Zestril) 10 mg PO [facility] Last Admin: 02/24/19 21:04 Dose: 10 mg Documented by: Metoprolol Succinate (Toprol Xl) 25 mg PO [facility] Last Admin: 02/24/19 21:04 Dose: 25 mg Documented by: Metoprolol Tartrate (Lopressor) 100 mg PO DAILY [facility] Last Admin: 02/24/19 08:40 Dose: 100 mg Documented by: Pantoprazole Sodium (Protonix) 40 mg PO [facility] Last Admin: 02/24/19 21:04 Dose: 40 mg Documented by: Phenytoin Sodium (Dilantin Oral Susp) 100 mg PO TID [facility] Last Admin: 02/24/19 21:03 Dose: 100 mg Documented by: Sumatriptan Succinate (Imitrex) 50 mg PO BID PRN PRN Reason: Headache Tramadol HCl (Ultram) 50 mg PO BID PRN PRN Reason: Pain Last Admin: 02/24/19 18:58 Dose: 50 mg Documented by: Physical examination: VITAL SIGNS: 97.9, 70, 14, 118/72, 94% room air GENERAL: Laying in bed, tired appearing but answering questions EYES: Pupils equal. Conjunctiva normal. HEENT: External appearance of nose and ears normal, oral cavity grossly normal. NECK: JVD unable to assess; masses not palpable. HEART: First and second heart sounds are normal; no edema. LUNGS: Respiratory rate normal; decreased breath sounds. ABDOMEN: Soft, nontender, liver spleen not palpable, no masses palpable. PSYCH: Answering questions, but anxious. NEUROLOGICAL: Cranial nerves grossly intact; no facial asymmetry, patient is moving all 4 limbs, sensation grossly preserved. Investigations: Accu-Cheks noted Previous labs: Keppra level high at 120 White count 13.7 hemoglobin 13.2 potassium 4.3 creatinine 1.05 EKG normal sinus rhythm Computed tomography scan of the head and cervical spine-nonspecific except some moderate narrowing of C4-C5 bilaterally and severe right and moderate left C5-C6 follow minimal narrowing Chest x-ray film personally reviewed by me shows some venous prominence/atelectasis Assessment: -Possible Keppra toxicity, causing metabolic encephalopathy and possible delirium, -Tonic clonic generalized seizure noted today, 2 episodes -Coronary artery disease with stent -GERD -Hyperlipidemia -Essential hypertension -Primary osteoarthritis -Chronic marijuana use -Chronic nicotine dependence patient cigarette smoker Plan: Patient was moved to ICU. Saw the patient in the ICU. . the nurse earlier. Follow with neurologist. Seizure precautions to continue. Interest arson investigator Dr. Giron was consulted. Follow closely in the ICU.
[2019-02-24] MEDS: MELATONIN 3 MG TABLET PO PRN (23:42)
[2019-02-24] MEDS: SUMAtriptan SUCCINATE 50 MG TAB PO PRN (23:42)
[2019-02-25 05:22] LABS: Calcium 8.8 mg/dL (8.4-10.2); Potassium 3.6 mmol/L (3.5-5.1)
[2019-02-25 05:26] LABS: Basophils % (A) 0 %; Eosinophils # (A) 0.2 k/uL (0-0.7); Eosinophils % (A) 2 %; HCT 33.4 % (39.0-53.0); HGB 11.1 gm/dL (13.0-17.5); Lymphocytes # (A) 2.2 k/uL (1.0-4.8); Lymphocytes % (A) 21 %; MCH 31.6 pg (25.0-35.0); MCHC 33.3 g/dL (31.0-37.0); MCV 94.9 fL (80.0-100.0); Mean Platelet Volume 7.7; Monocytes # (A) 0.8 k/uL (0-1.0); Monocytes % (A) 8 %; Neutrophils # (A) 6.8 k/uL (1.3-7.7); Neutrophils % (A) 66 %; Platelet Count 315 k/uL (150-450); RBC 3.52 m/uL (4.30-5.90); RDW 13.6 % (11.5-15.5); WBC 10.3 k/uL (3.8-10.6)
--- NOTE | 2019-02-25 07:34 | PN ---
PROGRESS NOTE PULMONARY/CRITICAL CARE PROGRESS NOTE: DATE OF SERVICE: 02/25/2019 This is a 68-year-old gentleman seen yesterday in consultation. He was transferred to the ICU because of recurrent seizure activity. Anyway, the patient has been here in the ICU and doing reasonably well. Yesterday about 9:30 or 10:00 he did have a seizure or two. He was seen by Neurology. He was initially seen in the emergency room. The patient initially apparently fell his head, had a seizure and subsequent to that had a cardiac arrest. He was taking care over at [facility] in [place]. He apparently was on the ventilator for some time. He was discharged home and comes back in with recurrent seizure. Again, he was admitted to the hospital service and he has been seen by Neurology. Here, he is on room air. He is not receiving any IV fluids. He is awake and alert. His mental status is excellent. MEDICAL HISTORY: Includes CAD, CVA, GERD, hyperlipidemia, hypertension, hepatitis C, myocardial infarction, previous history of cardiac arrest in 2011 subsequent to a myocardial infarction, migraine cephalgia, arthritis, visual impairment, and previous tobacco history. PHYSICAL EXAMINATION: Current vital signs are stable. Temperature is 99, heart rate 64, respiratory rate 27, blood pressure 89/60, mean 69, saturations are 95% on room air. Appears in no acute distress. HEENT: Examination is grossly unremarkable. Mucous membranes are moist. No oral lesions. NECK: Supple. Full range of motion. No adenopathy, thyromegaly or neck vein distention. CARDIOVASCULAR: Examination reveals regular rhythm and rate. S1, S2 normal. No S3, S4, or murmur. LUNGS: Reveal clear breath sounds. No wheezes or rhonchi. Breath sounds equal bilaterally. ABDOMEN: Soft. Bowel sounds are heard. EXTREMITIES: Intact. No cyanosis, clubbing, or edema. SKIN: Without rash. NEUROLOGIC: Examination is nonfocal. LAB DATA: Reviewed. Currently nothing back from today as yet. No recent x-ray to report. Medications are reviewed. ASSESSMENT: 1. Recurrent seizure disorder. 2. Recent episode of head trauma, subsequent seizure and cardiac arrest requiring intubation, mechanical ventilation at [facility] in [place] with subsequent discharge. 3. Recent new onset seizure secondary to head trauma. 4. History of hepatitis C. 5. History of coronary artery disease with multiple PCIs and multiple stent placements. 6. History of hyperlipidemia. 7. History of benign essential hypertension. 8. Migraine cephalgia. 9. Previous history of cerebrovascular accident. 10.Gastroesophageal reflux disease. 11.History of hepatitis C. 12.Previous myocardial infarction. 13.Degenerative joint disease. PLAN: Patient is doing well. The patient is currently on room air, not receiving any IV fluids. The patient could be potentially discharged from the ICU. Will wait for neurology input. EEG was performed. The patient is on appropriate antiseizure medication. No additional recommendations are made. I have not witnessed one of these seizures myself. MMODL / IJN: [id number] /
[2019-02-25] MEDS: busPIRone HCl 10 MG TAB PO SCH ×2 (08:43→21:28)
[2019-02-25] MEDS: DICYCLOMINE 20 MG TAB PO SCH ×2 (08:44→21:27)
[2019-02-25] MEDS: METOPROLOL TARTRATE 50 MG TAB PO SCH (08:44)
[2019-02-25] MEDS: PHENYTOIN ORAL SUSP 100 MG/4 ML CUP PO SCH ×3 (08:45→21:30)
[2019-02-25] MEDS: traMADol 50 MG TAB PO PRN ×2 (08:50→14:14)
[2019-02-25] MEDS: SUMAtriptan SUCCINATE 50 MG TAB PO PRN ×2 (11:54→19:12)
[2019-02-25] MEDS: ENOXAPARIN 40 MG/0.4 ML SYRINGE SQ SCH (14:11)
--- NOTE | 2019-02-25 16:47 | P.PN ---
Progress Note - Text Progress Note Date: 02/25/19 SUBJECTIVE/INTERVAL EVENTS: No acute overnight events. Patient was participating in physical therapy and occupational therapy. During therapy, patient was walking around the bed when he became slightly off balance and then when he came close to the bed, patient fell forward and briefly lost consciousness. Patient regained his consciousness within 2-3 seconds of falling and to the bed. Patient appeared confused, but eventually patient was able to state his name, location and year. No abnormal eye movements, rhythmic movement, jaw clenching. PHYSICAL EXAMINATION: VITAL SIGNS: Temperature 97.7 pulse rate 65 respiratory rate 22 blood pressure 95 or 6 day old saturation 96% on room air GEN.: Not in acute distress, pt very cooperative but saying jokes HEENT: Grossly atraumatic. SKIN AND EXTREMITIES: Warm to touch, no edema NEURO: MENTAL STATUS: Patient alert and oriented x3 to name, place and time. Says president's name is "ass-hole, ass-hole, asshole." Patient able to and repeat CRANIAL NERVES II THROUGH XII: II: No facial asymmetry. No gaze deviation. Facial muscles are grossly intact. MOTOR: normal bulk and tone. 5/5 strength throughout SENSORY: Senation intact to light touch in all 4 extremities COORDINATION: Finger to nose intact bilaterally. no dysmetria DIAGNOSTIC TESTING: LABORATORY: WBC 13.7 hemoglobin 13.2 hematocrit 39.7 platelets 309 PT 10.3 INR 1.0 sodium 143 potassium 4.3 chloride 110 bicarb 22 BUN 12 creatinine 1.05 glucose 104 AST 19 ALT 33 alk phos 104 ammonia <9 troponins <0.012 urinalysis negative U tox positive for benzo Keppra level 120.7 IMAGING: CT head without contrast 02/22/2019: Mild periventricular white matter ischemic type changes with age-related atrophy. CT C-spine without contrast 02/22/2019: No acute fracture of cervical spine. Degenerative disc changes to lower cervical spine. Mid cervical spine foraminal stenosis due to uncovertebral joint hypertrophy EEG 02/23/2019: Abnormal EEG. The diffuse theta range slowing mentioned is not epileptiform in nature. Combination with the slow background indicating mild diffuse cerebral dysfunction as may be seen in a toxic metabolic encephalopathy. EEG 02/24/2019: Intermittent diffuse 5-7 Hz polymorphic theta range slowing was seen but not epileptiform in nature. In combination with the slow background, these findings indicate a mild diffuse cerebral dysfunction. ASSESSMENT: Mr. James is a 68-year-old man with past medical history of coronary artery disease, CVA/TIA, GERD, hyperlipidemia, hypertension, liver disease, [place], possible seizure episode, presenting with acute mental status change. Unclear what patient's baseline personality is, but difficult to examine obtain history from the patient as patient is very uncooperative. however patient with a recent history of possible new onset seizures. Appears the patient was started on Keppra for his new onset seizures. Keppra can cause agitation. Appears the patient was compliant with this medication. We will change this seizure medication from Keppra to phenytoin. Patient today observed to be having a possible syncopal episode. Patient had been sitting down on his bed for some time before standing up to participate with physical therapy and occupational therapy. Patient's blood pressure was taken again after the episode, at which time her blood pressure was in the 110s. RECOMMENDATIONS: 1. Check orthostatics (SBP ranged from 80s to 100s) 2. EKG sinus rhythm. Heart monitoring with no obvious arrhythmia. 3. Consider cardiology consult for syncopal episode. 4. Continue with Keppra to 750 mg twice a day 5. Continue with phenytoin 100 mg PO TID (s/p phenytoin IV load of 750 mg on 02/24) 6. Patient needs outpatient follow-up with a neurologist within 1-2 weeks of discharge. 7. Neurology will continue to follow if patient is still here on Thursday. Feel free to [employer] message me over the weekend if you have any questions or concerns
[2019-02-25] MEDS: LISINOPRIL 10 MG TAB PO SCH (21:29)
[2019-02-25] MEDS: ATORVASTATIN 40 MG TAB PO SCH (21:29)
[2019-02-25] MEDS: ISOSORBIDE MONONITRATE ER 30 MG TAB.ER.24H PO SCH (21:29)
[2019-02-25] MEDS: EZETIMIBE 10 MG TAB PO SCH (21:29)
[2019-02-25] MEDS: MELATONIN 3 MG TABLET PO PRN (21:30)
[2019-02-25] MEDS: METOPROLOL SUCCINATE (ER) 25 MG TAB.ER.24H PO SCH (21:30)
[2019-02-25] MEDS: ASPIRIN 325 MG TAB PO SCH (21:30)
[2019-02-25] MEDS: PANTOPRAZOLE 40 MG TABLET PO SCH (21:31)
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
[2019-02-26] MEDS: ENOXAPARIN 40 MG/0.4 ML SYRINGE SQ SCH (09:37)
[2019-02-26] MEDS: busPIRone HCl 10 MG TAB PO SCH ×2 (09:38→20:09)
[2019-02-26] MEDS: PHENYTOIN ORAL SUSP 100 MG/4 ML CUP PO SCH ×3 (09:38→20:53)
[2019-02-26] MEDS: METOPROLOL TARTRATE 50 MG TAB PO SCH (09:38)
[2019-02-26] MEDS: DICYCLOMINE 20 MG TAB PO SCH ×2 (09:38→20:09)
[2019-02-26] MEDS: traMADol 50 MG TAB PO PRN ×2 (09:42→16:38)
--- NOTE | 2019-02-26 09:44 | PN ---
PROGRESS NOTE PULMONARY/CRITICAL CARE PROGRESS NOTE: DATE OF SERVICE: 02/26/2019 This is a 68-year-old male who was transferred to the ICU because of recurrent seizure activity. Since he has been here, he is doing relatively well. The patient currently has been seen by Neurology. He is currently an overflow patient. He is currently not receiving any supplemental oxygen. He does have an IV in place. He does have a significant past medical history including CAD, CVA, GERD, hyperlipidemia, hypertension, hepatitis C, myocardial infarction, previous history of cardiac arrest in 2011, migraine cephalgia, arthritis, visual impairment, and previous tobacco history. Again, he is doing relatively well. He has no particular complaints today. He is with a sitter. The patient could possibly be discharged home in the next day or so. PHYSICAL EXAMINATION: VITAL SIGNS: Current vital signs reviewed. Temperature 98.7, heart rate 67, respiratory rate 14, blood pressure 90/56, mean 67, room-air saturation 97%. Appears in no acute distress. HEENT examination is grossly unremarkable. Mucous membranes are moist. No oral lesions. NECK: Supple. Full range of motion. No adenopathy. Neck veins are flat. CARDIOVASCULAR examination reveals regular rhythm and rate. Heart rate below 70. S1, S2 normal. No murmur. LUNGS: Reveal clear breath sounds. No wheezes, rhonchi, or crackles. ABDOMEN: Soft. Bowel sounds are heard. EXTREMITIES are intact. No cyanosis, clubbing, or edema. SKIN: Without rash. NEUROLOGIC examination is brief but nonfocal. The patient does appear to be a bit manic at this time. I know that he has been seen by or will be seen by Psychiatry. LAB DATA: Includes nothing new from today. No recent x-rays to report. Medications are reviewed. They seem to be appropriate. Again, he has been seen by a Neurology. ASSESSMENT: 1. History of recurrent seizure disorder. 2. Recent episode of head trauma, subsequent seizure and cardiac arrest requiring intubation and mechanical ventilation at [facility] in [place] with subsequent discharge. 3. Recent new onset seizure secondary to head trauma. 4. History of hepatitis C. 5. History of coronary artery disease with multiple PCIs and multiple stent placements. 6. History of hyperlipidemia. 7. Benign essential hypertension. 8. Migraine cephalgia. 9. History of cerebrovascular accident. 10.Gastroesophageal reflux disease. 11.History of hepatitis C. 12.Previous myocardial infarction. 13.Degenerative joint disease. PLAN: The patient is doing well. The patient could be transferred out of the unit. We will continue see as needed. No additional recommendations are made. Prognosis is guarded. He does appear to be a bit manic today. Additional recommendations and suggestions are forthcoming. MMODL / IJN: [id number] /
[2019-02-26] MEDS ORDERED: ARTIFICIAL TEARS-HYPROMELLOSE DROPS 15 ML BTL BOTH EYES PRN (19:05)
[2019-02-26] MEDS: ISOSORBIDE MONONITRATE ER 30 MG TAB.ER.24H PO SCH (20:09)
[2019-02-26] MEDS: PANTOPRAZOLE 40 MG TABLET PO SCH (20:09)
[2019-02-26] MEDS: EZETIMIBE 10 MG TAB PO SCH (20:09)
[2019-02-26] MEDS: LISINOPRIL 10 MG TAB PO SCH (20:09)
[2019-02-26] MEDS: ASPIRIN 325 MG TAB PO SCH (20:09)
[2019-02-26] MEDS: ATORVASTATIN 40 MG TAB PO SCH (20:10)
[2019-02-26] MEDS: METOPROLOL SUCCINATE (ER) 25 MG TAB.ER.24H PO SCH (20:10)
[2019-02-26] MEDS: MELATONIN 3 MG TABLET PO PRN (20:53)
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
[2019-02-27] MEDS: busPIRone HCl 10 MG TAB PO SCH (08:07)
[2019-02-27] MEDS: PHENYTOIN ORAL SUSP 100 MG/4 ML CUP PO SCH ×2 (08:07→16:28)
[2019-02-27] MEDS: traMADol 50 MG TAB PO PRN ×2 (08:07→16:28)
[2019-02-27] MEDS: DICYCLOMINE 20 MG TAB PO SCH (08:08)
[2019-02-27] MEDS: ENOXAPARIN 40 MG/0.4 ML SYRINGE SQ SCH (08:08)
[2019-02-27] MEDS ORDERED: METOPROLOL TARTRATE 50 MG TAB PO SCH (09:00)
[2019-02-27 16:36] VITALS: RESP 16; TEMP 98.8
[2019-02-27 16:37] VITALS: BP 101/86; PULSE 67
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
== END 2019-02-27 19:00 | disposition short-term general hospital (02) | DRG 88 ==
LOC: EC 10:11 → 4MS4W 13:24 → 3NMEDONC 14:37 → 3SCARD 15:33 → 2SICU 02-24 10:45
PROVIDERS: ADMIT Hospitalist; ATTEND Hospitalist
DX: S06.0X0A Concussion without loss of consciousness, initial encounter (principal); G92 Toxic encephalopathy; R56.1 Post traumatic seizures; I69.998 Other sequelae following unspecified cerebrovascular disease; Y92.9 Unspecified place or not applicable; B19.20 Unspecified viral hepatitis C without hepatic coma; E78.5 Hyperlipidemia, unspecified; F17.210 Nicotine dependence, cigarettes, uncomplicated; G43.909 Migraine, unspecified, not intractable, without status migrainosus; H53.8 Other visual disturbances; I10 Essential (primary) hypertension; I25.10 Atherosclerotic heart disease of native coronary artery without angina pectoris; I25.2 Old myocardial infarction; K21.9 Gastro-esophageal reflux disease without esophagitis; M19.91 Primary osteoarthritis, unspecified site; F41.9 Anxiety disorder, unspecified; R45.1 Restlessness and agitation; T42.6X5A Adverse effect of other antiepileptic and sedative-hypnotic drugs, initial encounter; Z78.1 Physical restraint status; Z79.82 Long term (current) use of aspirin; Z79.899 Other long term (current) drug therapy; Z88.5 Allergy status to narcotic agent; Z88.8 Allergy status to other drugs, medicaments and biological substances; Z95.5 Presence of coronary angioplasty implant and graft; Z86.74 Personal history of sudden cardiac arrest; Z82.3 Family history of stroke; Z83.3 Family history of diabetes mellitus; W22.09XA Striking against other stationary object, initial encounter; W19.XXXA Unspecified fall, initial encounter
CPT/HCPCS: 36415; 51702; 70450; 71046; 72125; 80048; 80053; 80177; 80306; 80320; 81003; 82140; 84484; 85025; 85610; 85730; 93005; 95816; 96360; 96361; 99285

== ENCOUNTER 2019-04-11 12:12 | Inpatient (IN) | payer MEDICARE ==
[2019-04-11] MEDS ORDERED: LORazepam 2 MG/ML INJ IV STA (12:56)
[2019-04-11] MEDS ORDERED: SODIUM CHLORIDE 0.9% 1,000 ML IV STA (12:56)
--- NOTE | 2019-04-11 13:01 | ED ---
General Adult HPI - General Chief complaint: Neuro Symptoms/Deficit Stated complaint: poss stroke Time Seen by Provider: 04/11/19 12:42 Source: patient, RN notes reviewed Mode of arrival: wheelchair Limitations: no limitations - History of Present Illness Initial comments: Patient is a pleasant 68-year-old male presenting to the emergency department with concerns for speech problems. Onset of symptoms was yesterday afternoon around 2:00. Symptoms were worse this morning. Symptoms have been steady today. Patient feels like his speech is slow. Patient did have stroke with different symptoms over a month ago. No headache. No confusion. No arm or leg weakness. - Related Data Home Medications Medication Instructions Recorded Confirmed Ezetimibe/Simvastatin [Vytorin 1 tab PO HS 09/07/17 04/11/19 10-80 mg Tablet] Isosorbide Mononitrate ER [Imdur] 30 mg PO BID 09/07/17 04/11/19 Lisinopril [Zestril] 10 mg PO HS 09/07/17 04/11/19 Pantoprazole [Protonix] 40 mg PO BID 09/07/17 04/11/19 busPIRone HCl [Buspar] 20 mg PO BID 09/07/17 04/11/19 Dicyclomine HCl 20 mg PO QID 02/22/19 04/11/19 Diazepam [Valium] 2 mg PO BID PRN 04/11/19 04/11/19 Donepezil [Aricept] 10 mg PO HS 04/11/19 04/11/19 Metoprolol Succinate (ER) [Toprol 25 mg PO DAILY 04/11/19 04/11/19 Xl] Pravastatin Sodium [Pravachol] 10 mg PO HS 04/11/19 04/11/19 Temazepam [Restoril] 30 mg PO HS PRN 04/11/19 04/11/19 amLODIPine [Norvasc] 5 mg PO BID 04/11/19 04/11/19 levETIRAcetam [Keppra] 1,000 mg PO Q12HR 04/11/19 04/11/19 Previous Rx's Medication Instructions Recorded Aspirin 81 mg PO DAILY #1 chewable 02/27/19 Allergies Allergy/AdvReac Type Severity Reaction Status Date / Time codeine Allergy Rash/Hives Verified 04/11/19 13:25 zolpidem [From Ambien] AdvReac "salty" Verified 04/11/19 13:25 taste in mouth, numb mouth Review of Systems ROS Statement: Those systems with pertinent positive or pertinent negative responses have been documented in the HPI. ROS Other: All systems not noted in ROS Statement are negative. Constitutional: Denies: fever Eyes: Denies: eye pain ENT: Denies: ear pain Respiratory: Denies: cough Cardiovascular: Denies: chest pain Endocrine: Denies: fatigue Gastrointestinal: Denies: abdominal pain Genitourinary: Denies: urgency Musculoskeletal: Denies: back pain Skin: Denies: rash Neurological: Denies: weakness Past Medical History Past Medical History: Coronary Artery Disease (CAD), CVA/TIA, GERD/Reflux, Hyperlipidemia, Hypertension, Liver Disease, Myocardial Infarction (ID), Vascular Disorder Additional Past Medical History / Comment(s): Dre Mejia, states pt was admitte d about one week ago after a fall with head injury/new onset seizures and was hospitalized at [facility] in [place] in [place]. He was on life support and was extubated and had one more seizure. She states he was confused and hallucinating prior to discharge. 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 Last Myocardial Infarction Date:: 2011 History of Any Multi-Drug Resistant Organisms: None Reported Past Surgical History: Heart Catheterization With Stent, Orthopedic Surgery Additional Past Surgical History / Comment(s): PCI with a total of 7 stents per pt, L caratid endartectomy, L shoulder surgery for injury, R knee/R hip/R elbow/R wrist ligament/tendon type surgeries injuries-has pins in hand, colonoscopy. Past Anesthesia/Blood Transfusion Reactions: No Reported Reaction Date of Last Stent Placement:: 2011 Past Psychological History: Anxiety Smoking Status: Current every day smoker Past Alcohol Use History: None Reported Past Drug Use History: Marijuana - Past Family History Father Family Medical History: CVA/TIA Additional Family Medical History / Comment(s): Father is from CVA. Pt states father from "stupidity." Mother Family Medical History: Diabetes Mellitus Additional Family Medical History / Comment(s): Mother from diabetes at the age of 52 yrs. Brother(s) Family Medical History: Diabetes Mellitus Additional Family Medical History / Comment(s): Brother at the age of 32 yrs from type 1 diabetes. General Exam Limitations: no limitations General appearance: alert, in no apparent distress Head exam: Present: normocephalic Eye exam: Present: normal appearance, PERRL, EOMI. Absent: nystagmus ENT exam: Present: normal oropharynx Neck exam: Present: normal inspection Respiratory exam: Present: normal lung sounds bilaterally Cardiovascular Exam: Present: regular rate, normal rhythm GI/Abdominal exam: Present: soft. Absent: tenderness Extremities exam: Present: normal inspection Neurological exam: Present: alert, oriented X3, CN II-XII intact. Absent: motor sensory deficit Expanded Neurological exam: Present: other (Patient does have some delayed and slurred speech.) Cranial nerves: EOM's Intact: Normal, Facial Sensation: Normal Sensory exam: Upper Extremity Light Touch: Normal, Lower Extremity Light Touch: Normal Motor strength exam: RUE: 5, LUE: 5, RLE: 5, LLE: 5 Eye Response: (4) open spontaneously Motor Response: (6) obeys commands Verbal Response: (5) oriented Psychiatric exam: Present: normal affect, normal mood Skin exam: Present: normal color Course Vital Signs 04/11/19 04/11/19 12:27 13:16 Temperature 98.1 F Pulse Rate 88 87 Respiratory 18 18 Rate Blood Pressure 142/86 144/78 O2 Sat by Pulse 98 99 Oximetry EKG Findings - EKG Comments: EKG Findings:: Normal sinus rhythm 71. UT 138. QRS 88. QT 404. QTC 439. Normal axis. Inferior Q waves. No acute ST change. Medical Decision Making - Medical Decision Making Patient reevaluated and resting comfortably in bed. Patient updated on results and plan. Case discussed in detail with Dr. El, will admit covering for Dr. Felix. - Lab Data Result diagrams: 04/11/19 12:56 04/11/19 12:56 Lab Results 04/11/19 04/11/19 04/11/19 Range/Units 12:56 12:56 12:56 WBC 9.9 (3.8-10.6) k/uL RBC 4.40 (4.30-5.90) m/uL Hgb 14.3 D (13.0-17.5) gm/dL Hct 42.4 (39.0-53.0) % MCV 96.2 (80.0-100.0) fL MCH 32.5 (25.0-35.0) pg MCHC 33.8 (31.0-37.0) g/dL RDW 17.3 H (11.5-15.5) % Plt Count 265 (150-450) k/uL Neutrophils % 67 % Lymphocytes % 22 % Monocytes % 7 % Eosinophils % 1 % Basophils % 1 % Neutrophils # 6.7 (1.3-7.7) k/uL Lymphocytes # 2.2 (1.0-4.8) k/uL Monocytes # 0.7 (0-1.0) k/uL Eosinophils # 0.1 (0-0.7) k/uL Basophils # 0.1 (0-0.2) k/uL Anisocytosis Slight Macrocytosis Slight PT 9.6 (9.0-12.0) sec INR 0.9 (<1.2) APTT 24.7 (22.0-30.0) sec Sodium 143 (137-145) mmol/L Potassium 4.1 (3.5-5.1) mmol/L Chloride 107 (98-107) mmol/L Carbon Dioxide 23 (22-30) mmol/L Anion Gap 13 mmol/L BUN 11 (9-20) mg/dL Creatinine 0.97 (0.66-1.25) mg/dL Est GFR (CKD-EPI)AfAm >90 (>60 ml/min/1.73 sqM) Est GFR (CKD-EPI)NonAf 81 (>60 ml/min/1.73 sqM) Glucose 86 (74-99) mg/dL Calcium 9.6 (8.4-10.2) mg/dL Total Bilirubin 0.6 (0.2-1.3) mg/dL AST 21 (17-59) U/L ALT 21 (21-72) U/L Alkaline Phosphatase 97 (38-126) U/L Troponin I (0.000-0.034) ng/mL Total Protein 7.6 (6.3-8.2) g/dL Albumin 4.7 (3.5-5.0) g/dL 04/11/19 Range/Units 12:56 WBC (3.8-10.6) k/uL RBC (4.30-5.90) m/uL Hgb (13.0-17.5) gm/dL Hct (39.0-53.0) % MCV (80.0-100.0) fL MCH (25.0-35.0) pg MCHC (31.0-37.0) g/dL RDW (11.5-15.5) % Plt Count (150-450) k/uL Neutrophils % % Lymphocytes % % Monocytes % % Eosinophils % % Basophils % % Neutrophils # (1.3-7.7) k/uL Lymphocytes # (1.0-4.8) k/uL Monocytes # (0-1.0) k/uL Eosinophils # (0-0.7) k/uL Basophils # (0-0.2) k/uL Anisocytosis Macrocytosis PT (9.0-12.0) sec INR (<1.2) APTT (22.0-30.0) sec Sodium (137-145) mmol/L Potassium (3.5-5.1) mmol/L Chloride (98-107) mmol/L Carbon Dioxide (22-30) mmol/L Anion Gap mmol/L BUN (9-20) mg/dL Creatinine (0.66-1.25) mg/dL Est GFR (CKD-EPI)AfAm (>60 ml/min/1.73 sqM) Est GFR (CKD-EPI)NonAf (>60 ml/min/1.73 sqM) Glucose (74-99) mg/dL Calcium (8.4-10.2) mg/dL Total Bilirubin (0.2-1.3) mg/dL AST (17-59) U/L ALT (21-72) U/L Alkaline Phosphatase (38-126) U/L Troponin I <0.012 (0.000-0.034) ng/mL Total Protein (6.3-8.2) g/dL Albumin (3.5-5.0) g/dL - Radiology Data Radiology results: report reviewed (Computed tomography scan of the brain reveals mild practice.Periventricular white matter ischemic changes stable), image reviewed (Chest x-ray shows atelectasis versus early infiltrate.) Disposition Clinical Impression: Transient cerebral ischemia Disposition: ADMITTED IP TO THIS HOSP Is patient prescribed a controlled substance at d/c from ED?: No Referrals: Isidro,Aaron, MD [Primary Care Provider] - 1-2 days Decision Time: 14:46
[2019-04-11 13:17] LABS: Anisocytosis Slight; Basophils # (A) 0.1 k/uL (0-0.2); Basophils % (A) 1 %; Eosinophils # (A) 0.1 k/uL (0-0.7); Eosinophils % (A) 1 %; HCT 42.4 % (39.0-53.0); INR 0.9 (<1.2); Lymphocytes # (A) 2.2 k/uL (1.0-4.8); Lymphocytes % (A) 22 %; MCH 32.5 pg (25.0-35.0); MCHC 33.8 g/dL (31.0-37.0); MCV 96.2 fL (80.0-100.0); Macrocytosis Slight; Mean Platelet Volume 7.2; Monocytes # (A) 0.7 k/uL (0-1.0); Monocytes % (A) 7 %; Neutrophils # (A) 6.7 k/uL (1.3-7.7); Neutrophils % (A) 67 %; Partial Thromboplastin Time 24.7 sec (22.0-30.0); Platelet Count 265 k/uL (150-450); Prothrombin Time 9.6 sec (9.0-12.0); RDW 17.3 % (11.5-15.5); WBC 9.9 k/uL (3.8-10.6)
[2019-04-11 13:19] LABS: ALT 21 U/L (21-72); AST 21 U/L (17-59); African American GFR (CKD) >90 (>60 ml/min/1.73 sqM); Albumin 4.7 g/dL (3.5-5.0); Alkaline Phosphatase 97 U/L (38-126); Anion Gap 13 mmol/L; Blood Urea Nitrogen 11 mg/dL (9-20); Calcium 9.6 mg/dL (8.4-10.2); Carbon Dioxide 23 mmol/L (22-30); Chloride 107 mmol/L (98-107); Glucose 86 mg/dL (74-99); Sodium 143 mmol/L (137-145); Total Bilirubin 0.6 mg/dL (0.2-1.3); Total Protein 7.6 g/dL (6.3-8.2)
[2019-04-11 13:22] LABS: Potassium 4.1 mmol/L (3.5-5.1)
[2019-04-11 13:26] LABS: HGB 14.3 gm/dL (13.0-17.5)
--- NOTE | 2019-04-11 13:39 | CT ---
EXAMINATION TYPE: CT brain wo con for TPA DATE OF EXAM: 04/11/2019 COMPARISON: 02/22/2019 INDICATION: Possible stroke, neuro deficits DLP: 1052.4 mGycm, Automated exposure control for dose reduction was used. CONTRAST: None CT of the brain is performed utilizing 3 mm thick sections through the posterior fossa and 3 mm thick sections through the remaining calvarium. Study is performed within 24 hours of arrival to the hosp ital. No abnormal hyperdensity is present to suggest an acute intracranial hemorrhage. No mass lesion is evident. No acute infarcts are evident. There is faint periventricular white matter hypodensity, likely on the basis of chronic white matter ischemic changes. Findings were present previously and stable. Ventricles and sulci are appropriate for the patient age. Paranasal sinuses and mastoid air cells within the [id number] are clear. IMPRESSIONS: 1. Mild periventricular white matter ischemic changes stable.
--- NOTE | 2019-04-11 13:41 | XR ---
EXAMINATION TYPE: XR chest 2V DATE OF EXAM: 04/11/2019 COMPARISON: 02/22/2019 HISTORY: 68-year-old male altered mental status, confusion, possible stroke TECHNIQUE: AP and lateral views FINDINGS: Heart normal size. Mild elongation thoracic aorta. Strandy atelectasis lower lungs, right greater abdullahi n left. No keith consolidation or pleural effusion. Mild patchy density at the right base. Limitation due to hazy densities related to large patient body habitus. Multiple suture anchors within the left humeral head. IMPRESSION: Mild patchy right basilar atelectasis versus early infiltrate.
[2019-04-11] MEDS ORDERED: ASPIRIN 325 MG TAB PO STA (14:46)
[2019-04-11] MEDS: SODIUM CHLORIDE 0.9% 1,000 ML IV SCH (16:56)
[2019-04-11] MEDS ORDERED: DIAZEPAM 2 MG TAB PO PRN (17:45)
[2019-04-11] MEDS ORDERED: PANTOPRAZOLE 40 MG TABLET PO SCH (18:00)
[2019-04-11] MEDS: DICYCLOMINE 20 MG TAB PO SCH ×2 (18:32→21:17)
[2019-04-11] MEDS: ISOSORBIDE MONONITRATE ER 30 MG TAB.ER.24H PO SCH (18:33)
--- NOTE | 2019-04-11 19:09 | P.CNNES ---
History of Present Illness Consult date: 04/11/19 Requesting physician: Gregorio Villeda Reason for Consult: TIA Chief complaint: Woke up talking slow History of Present Illness: This is a 68 RH male who was hospitalized here back in 02/2019. Per medical records, patient had a h/o head injury after a fall and possible seizures. Back in 02/2019, he was found naked lying on the floor between a chair and an end table. He was seen by neurology and psychiatry. He had 2 EEGs during that time that did not capture any epileptiform discharges. 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 He underwent an MRI brain on 02/12/19 that showed mild atrophy, white matter disease, old lacunar infarcts in the basal ganglia and nothing acute. MRI C-spine on 02/12/19 showed mild DJD and moderately-marked foraminal narrowing greater in the lower cervical spine. Daughter at the time reported to Dr. Maharaj the neurologist that patient was exhibiting catatonic behavior. Today upon awakening, patient noticed that he was speaking a lot slower than usual. His speech was not dysarthric, and he was able to see everything he needed, only that he was speaking slowly. He did not notice any ot her focal neuro c/o such as diplopia, amaurosis, facial numbness or droop, vertigo, dysphagia, other focal numbness/weakness not mentioned above, tremors, bowel/bladder incontinence or ataxia. Interestingly, the report that the floor RN received from the ER was that patient came in c/o 20 seconds of shaking, which is entirely different from what was documented in the ER MD note or what patient told me verbally during my visit with him this evening. Review of Systems I have performed a 14-point organ ROS with patient; pertinents as per HPI. Past Medical History Past Medical History: Coronary Artery Disease (CAD), CVA/TIA, GERD/Reflux, Hyperlipidemia, Hypertension, Liver Disease, Myocardial Infarction ([place]), Vascular Disorder Additional Past Medical History / Comment(s): Patient states he was admitted to the hospital January after a fall with head injury/new onset seizures and was hospitalized at [facility] in [place]. He was on life support and was extubated and had one more seizure. 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 Patient states he has Hepatitis C. Last Myocardial Infarction Date:: 2011 History of Any Multi-Drug Resistant Organisms: None Reported Past Surgical History: Heart Catheterization With Stent, Orthopedic Surgery Additional Past Surgical History / Comment(s): PCI with a total of 7 stents per pt, L caratid endartectomy, L shoulder surgery for injury, R knee/R hip/R elbow/R wrist ligament/tendon type surgeries injuries-has pins in hand, colonoscopy. Past Anesthesia/Blood Transfusion Reactions: No Reported Reaction Date of Last Stent Placement:: 2011 Past Psychological History: Anxiety Additional Psychological History / Comment(s): Pt resides alone. He was to start with home care services, Smoking Status: Former smoker Past Alcohol Use History: None Reported Additional Past Alcohol Use History / Comment(s): Pt started smoking in 1961-2 ppd. Past Drug Use History: Marijuana Additional Drug Use History / Comment(s): Patient smokes marijuana at times. - Past Family History Father Family Medical History: CVA/TIA Additional Family Medical History / Comment(s): Father is from CVA. Pt states father from "stupidity." Mother Family Medical History: Diabetes Mellitus Additional Family Medical History / Comment(s): Mother from diabetes at the age of 52 yrs. Brother(s) Family Medical History: Diabetes Mellitus Additional Family Medical History / Comment(s): Brother at the age of 32 yrs from type 1 diabetes. Medications and Allergies Home Medications Medication Instructions Recorded Confirmed Type Ezetimibe/Simvastatin [Vytorin 1 tab PO HS 09/07/17 04/11/19 History 10-80 mg Tablet] Isosorbide Mononitrate ER [Imdur] 30 mg PO BID 09/07/17 04/11/19 History Lisinopril [Zestril] 10 mg PO HS 09/07/17 04/11/19 History Pantoprazole [Protonix] 40 mg PO BID 09/07/17 04/11/19 History busPIRone HCl [Buspar] 20 mg PO BID 09/07/17 04/11/19 History Dicyclomine HCl 20 mg PO QID 02/22/19 04/11/19 History Aspirin 81 mg PO DAILY #1 chewable 02/27/19 04/11/19 Rx Diazepam [Valium] 2 mg PO BID PRN 04/11/19 04/11/19 History Donepezil [Aricept] 10 mg PO HS 04/11/19 04/11/19 History Metoprolol Succinate (ER) [Toprol 25 mg PO DAILY 04/11/19 04/11/19 History Xl] Pravastatin Sodium [Pravachol] 10 mg PO HS 04/11/19 04/11/19 History Temazepam [Restoril] 30 mg PO HS PRN 04/11/19 04/11/19 History amLODIPine [Norvasc] 5 mg PO BID 04/11/19 04/11/19 History levETIRAcetam [Keppra] 1,000 mg PO Q12HR 04/11/19 04/11/19 History Allergies Allergy/AdvReac Type Severity Reaction Status Date / Time codeine Allergy Rash/Hives Verified 04/11/19 13:25 zolpidem [From Ambien] AdvReac "salty" Verified 04/11/19 13:25 taste in mouth, numb mouth Physical Examination - Vital Signs Vital Signs: Vital Signs Temp Pulse Pulse Resp BP BP Pulse Ox 04/11/19 16:00 61 73 20 118/79 130/70 97 04/11/19 15:21 62 18 150/78 99 04/11/19 15:00 64 18 136/84 04/11/19 14:30 68 18 132/77 100 04/11/19 14:00 78 18 135/79 98 04/11/19 13:30 144/82 04/11/19 13:16 87 18 144/78 99 04/11/19 13:00 73 12 153/93 98 04/11/19 12:43 96 04/11/19 12:27 98.1 F 88 18 142/86 98 Intake and Output 04/11/19 04/11/19 04/11/19 06:59 14:59 22:59 Other: # Voids 0 Weight 84.368 kg Gen NAD Pleasant and cooperative HEENT NCAT Sclera without icterus O/P clear Neck Supple No carotid bruit Cor RRR no m/r/g Lungs CTAB Abd Soft NTND +BS Ext Warm to touch No edema Neuro MS A+Ox4 His speech is entirely fluent but of variable speeds He is able to articulate his medical history with me without semantic or phonemic paraphasia Able to follow all commands CN PERRL VFF no APD EOMI no nystagmus or CORNELIA No facial asymmetry Masseter's symmetric Hearing intact to normal voice bilaterally Speech is not dysarthric Equal elevation of palate Tongue midline Sym shrug and SCM bilaterally Motor Normal bulk/tone No pronator drift No tremors Strength 5/5 sym throughout Sens Intact to LT x4 No neglect Coord No dysmetria on FTN bilaterally DTRs 2+/4 sym throughout Toes downgoing bilaterally No clonus at achilles Gait Deferred NIHSS 0 Results - Laboratory Findings CBC and BMP: 04/11/19 12:56 04/11/19 12:56 Abnormal Lab Findings: Abnormal Labs 04/11/19 12:56 RDW 17.3 H - Diagnostic Findings Additional findings: CT Head wo cont 04/11/19. Mild periventricular white matter ischemic changes, stable. No ICH. Nil acute. I have reviewed neuroimages myself. Assessment and Plan Assessment: "Slow speech," which is actually fluent and not dysarthric. His neuro exam is non-focal with significant psych overlay. Plan: -In light of report of EPD in left parietal area on EEG back in 01/2019, will repeat one in am -LEV trough level in am; currently on 1g po q12h -Patient states he would need to be completely sedated under anesthesia for MRI; our MRI cannot handle ventilated patients, so he will not be able to get it at our facility unless he goes to an open MRI as outpatient or be transferred to another facility with the capacity of handling vented patients -Do not suspect a new vascular event, i.e. TIA/CVA -May treat BP to normotensive range -If neuro testing unrevealing, consider psych consultation -d/w patient and floor RN. All questions answered Thank you for this consultation. Please call with ?. Time with Patient: Greater than 30 (Time spent in direct patient care, greater than 50% of which was spent in dumc-fi-jono counseling and coordination of care: 70 minutes)
[2019-04-11] MEDS: NICOTINE 21MG/24HR PATCH TRANSDERM SCH (20:17)
[2019-04-11] MEDS: busPIRone HCl 10 MG TAB PO SCH (20:17)
[2019-04-11] MEDS: levETIRAcetam 500 MG TAB PO SCH (20:17)
[2019-04-11] MEDS: amLODIPine 5 MG TAB PO SCH (20:17)
[2019-04-11] MEDS: DONEPEZIL 10 MG TAB PO SCH (20:18)
[2019-04-11] MEDS: PRAVASTATIN SODIUM 20 MG TAB PO SCH (20:18)
[2019-04-11] MEDS: LISINOPRIL 10 MG TAB PO SCH (20:18)
[2019-04-11] MEDS: PANTOPRAZOLE 40 MG TABLET PO SCH (20:18)
[2019-04-11] MEDS ORDERED: ISOSORBIDE MONONITRATE ER 30 MG TAB.ER.24H PO SCH (21:00)
[2019-04-11] MEDS ORDERED: EZETIMIBE 10 MG TAB PO SCH (21:00)
[2019-04-11] MEDS ORDERED: ATORVASTATIN 40 MG TAB PO SCH (21:00)
[2019-04-11] MEDS: TEMAZEPAM 30 MG CAP PO PRN (21:17)
[2019-04-12] MEDS: ASPIRIN 81 MG PO SCH ×2 (03:26→08:11)
[2019-04-12 06:06] LABS: Cholesterol 103 mg/dL (<200); HDL Cholesterol 39 mg/dL (40-60); LDL Cholesterol,Calculated 52 mg/dL (0-99); Triglycerides 59 mg/dL (<150)
[2019-04-12] MEDS: ISOSORBIDE MONONITRATE ER 30 MG TAB.ER.24H PO SCH ×2 (06:53→17:44)
[2019-04-12] MEDS: PANTOPRAZOLE 40 MG TABLET PO SCH ×2 (06:54→21:05)
[2019-04-12] MEDS: METOPROLOL SUCCINATE (ER) 25 MG TAB.ER.24H PO SCH (08:11)
[2019-04-12] MEDS: DICYCLOMINE 20 MG TAB PO SCH ×4 (08:11→21:04)
[2019-04-12] MEDS: busPIRone HCl 10 MG TAB PO SCH ×3 (08:11→21:13)
[2019-04-12] MEDS: NICOTINE 21MG/24HR PATCH TRANSDERM SCH (08:11)
[2019-04-12] MEDS: levETIRAcetam 500 MG TAB PO SCH ×2 (08:11→21:04)
[2019-04-12] MEDS: amLODIPine 5 MG TAB PO SCH ×2 (08:11→21:04)
[2019-04-12] MEDS ORDERED: ASPIRIN 325 MG TAB PO SCH (09:00)
[2019-04-12] MEDS: ASPIRIN 325 MG TAB PO PRN ×2 (13:21→21:05)
--- NOTE | 2019-04-12 14:57 | EEG ---
ELECTROENCEPHALOGRAM REPORT DATE OF TESTIN04/12/2019. CLINICAL PROBLEM: Patient presented to the ER complaining of 20 seconds of shaking. He reported that when he woke up on the day of admission, he was speaking much slower than usual. He has a history of head injury and seizure disorder on Keppra. EEG was requested to rule out epileptic activity. MEDICATIONS: Amlodipine, aspirin, buspirone, diazepam, dicyclomine, donepezil, isosorbide mononitrate, Levetiracetam, lisinopril, metoprolol, nicotine transdermal, pantoprazole, pravastatin, temazepam. TYPE OF RECORDING: Bedside tracing using the 10-20 international electrode placement system. No sedation was given prior to the beginning of this recording. FINDINGS: The background of this tracing is seen with beta activity between 13-25 hertz. This activity is especially prominent in the frontal area bilaterally. There are occasional EMG and eye blink artifacts. Photic stimulation elicits a symmetric driving response. Hyperventilation is not performed in this recording. There is no definitive sleep architecture seen. There is no background asymmetry, ictal or interictal patterns appreciated. IMPRESSION: This is an abnormal electroencephalogram with excessive beta activity that can be seen in the use of benzodiazepine. There is no background asymmetry or epileptiform discharges seen. Clinical correlation is advised. MMJASON / GINGERN: [id number] / MTDD
[2019-04-12] MEDS: SODIUM CHLORIDE 0.9% 1,000 ML IV SCH (15:26)
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
--- NOTE | 2019-04-12 19:38 | P.HPIM ---
History of Present Illness H&P Date: 04/12/19 Chief Complaint: Slow speech History of presenting complaint: This is a 68-year-old patient who follows with Dr. Felix. Patient was here in the hospital from February 22 through February 27. Patient was transferred out to [facility] due to lack of neurological coverage at that time. Patient at that time and presented when he refers from laying on the floor between the becky ir and at the end of the table laying naked. Patient was recently in the psych in the hospital and was admitted there for a questionable diagnosis seizures also the cardiac arrest. Patient also had a history of fall with hitting his head on a concrete floor. Patient had then been on life support and was extubated. On the previous admission to [facility]. Patient is felt to have concussion from his head injury. Prior few days ago. Patient also was witnessed to have tonic-clonic generalized seizures with normal EEG done here. It may be noted that the EEG done at [facility] had shown some possible seizure activity. Additional chronic stable medical conditions include coronary artery disease with stent, GERD, hyperlipidemia, essential hypertension primary osteoarthritis. She now presents that he was watching a football game on Thursday that is 2 days ago and he noticed that he was started to talk slow. That was the reason for his presenting here. Denies any headache, no double vision. No weakness in the limbs. No change in swallowing. During my interview I noticed that patient's multiple sputums left. When I asked the patient the same he felt this is new. Patient had been watching television with a friend. Review of systems: GEN.: Tired EYES: None HEENT: None NECK: None RESPIRATORY: Occasional wheezing CARDIOVASCULAR: None GASTROINTESTINAL: None GENITOURINARY: None MUSCULOSKELETAL: Pain in the joints LYMPHATICS: None HEMATOLOGICAL: None PSYCHIATRY: Anxious NEUROLOGICAL: As above Past medical history to include: Concussion, possible tonic-clonic seizure, coronary artery disease with stent, GERD, hyperlipidemia, essential hypertension, primary osteoarthritis, nicotine dependence.. Social history: Lives alone. Smokes a pack and half a day. This marijuana at times. Denies alcohol. Physical examination: VITAL SIGNS: 98.1, 88, 18, 142/86, 98% room air GENERAL: Average built, sitting up, but anxious. EYES: Pupils equal. Conjunctiva normal. HEENT: External appearance of nose and ears normal, oral cavity grossly normal. NECK: JVD not raised; masses not palpable. HEART: First and second heart sounds are normal; no edema. LUNGS: Respiratory rate normal; decreased breath sounds. ABDOMEN: Soft, nontender, liver spleen not palpable, no masses palpable. PSYCH: Alert and oriented x3; mood and affect anxiousl. NEUROLOGICAL: Mouth this pulled over to the left, power and sensation grossly intact. LYMPHATICS: No lymph nodes palpable in the axilla and neck INVESTIGATIONS, reviewed in the clinical context: White count 9.9 hemoglobin 14.3 potassium 4.1 bun 11 creatinine 0.97 LDL 52 Computed tomography scan of the brain-mild periventricular white matter ischemic changes stable Chest x-ray film personally reviewed by me-questionable right-sided infiltrate versus atelectasis EKG tracing-normal sinus rhythm Assessment: -This is a patient presents with slowing of the speech and has noticed to have multiple to the left. Initial computed tomography scan is negative. Patient is extremely claustrophobic and cannot have a MRI. He said the last time and [place] had to sedate him for the same. Need to rule out stroke -Coronary artery disease with stent -GERD -Hyperlipidemia -Essential hypertension -Primary osteoarthritis -Chronic nicotine dependence patient cigarette smoker Plan: Neurology was consulted. Neuro checks are in place. Has patient cannot have a MRI will do a repeat computed tomography scan in 24 hours. Home medications resumed. EEG was also ordered. Patient is on aspirin. Also put on statins. Did discuss with Dr. Walton from neurology. It is his opinion this is a functional presentation.'s slowing. Smoke cessation counseling: This was done with the patient. Nicotine patch is being given. More than 3 minutes was spent for this Past Medical History Past Medical History: Coronary Artery Disease (CAD), CVA/TIA, GERD/Reflux, Hyperlipidemia, Hypertension, Liver Disease, Myocardial Infarction ([place]), Vascular Disorder Additional Past Medical History / Comment(s): Patient states he was admitted to the hospital January after a fall with head injury/new onset seizures and was hospitalized at [facility] in [place]. He was on life support and was extubated and had one more seizure. 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 Patient states he has Hepatitis C. Last Myocardial Infarction Date:: 2011 History of Any Multi-Drug Resistant Organisms: None Reported Past Surgical History: Heart Catheterization With Stent, Orthopedic Surgery Additional Past Surgical History / Comment(s): PCI with a total of 7 stents per pt, L caratid endartectomy, L shoulder surgery for injury, R knee/R hip/R elbow/R wrist ligament/tendon type surgeries injuries-has pins in hand, colonoscopy. Past Anesthesia/Blood Transfusion Reactions: No Reported Reaction Date of Last Stent Placement:: 2011 Past Psychological History: Anxiety Additional Psychological History / Comment(s): Pt resides alone. He was to start with home care services, Smoking Status: Former smoker Past Alcohol Use History: None Reported Additional Past Alcohol Use History / Comment(s): Pt started smoking in 1961-2 ppd. Past Drug Use History: Marijuana Additional Drug Use History / Comment(s): Patient smokes marijuana at times. - Past Family History Father Family Medical History: CVA/TIA Additional Family Medical History / Comment(s): Father is from CVA. Pt states father from "stupidity." Mother Family Medical History: Diabetes Mellitus Additional Family Medical History / Comment(s): Mother from diabetes at the age of 52 yrs. Brother(s) Family Medical History: Diabetes Mellitus Additional Family Medical History / Comment(s): Brother at the age of 32 yrs from type 1 diabetes. Medications and Allergies Home Medications Medication Instructions Recorded Confirmed Type Ezetimibe/Simvastatin [Vytorin 1 tab PO HS 09/07/17 04/11/19 History 10-80 mg Tablet] Isosorbide Mononitrate ER [Imdur] 30 mg PO BID 09/07/17 04/11/19 History Lisinopril [Zestril] 10 mg PO HS 09/07/17 04/11/19 History Pantoprazole [Protonix] 40 mg PO BID 09/07/17 04/11/19 History busPIRone HCl [Buspar] 20 mg PO BID 09/07/17 04/11/19 History Dicyclomine HCl 20 mg PO QID 02/22/19 04/11/19 History Aspirin 81 mg PO DAILY #1 chewable 02/27/19 04/11/19 Rx Diazepam [Valium] 2 mg PO BID PRN 04/11/19 04/11/19 History Donepezil [Aricept] 10 mg PO HS 04/11/19 04/11/19 History Metoprolol Succinate (ER) [Toprol 25 mg PO DAILY 04/11/19 04/11/19 History Xl] Pravastatin Sodium [Pravachol] 10 mg PO HS 04/11/19 04/11/19 History Temazepam [Restoril] 30 mg PO HS PRN 04/11/19 04/11/19 History amLODIPine [Norvasc] 5 mg PO BID 04/11/19 04/11/19 History levETIRAcetam [Keppra] 1,000 mg PO Q12HR 04/11/19 04/11/19 History Allergies Allergy/AdvReac Type Severity Reaction Status Date / Time codeine Allergy Rash/Hives Verified 04/11/19 13:25 zolpidem [From Ambien] AdvReac "salty" Verified 04/11/19 13:25 taste in mouth, numb mouth Physical Exam Vitals: Vital Signs Temp Pulse Pulse Pulse Resp BP BP 04/12/19 08:05 98.1 F 72 16 110/73 04/12/19 04:00 98.0 F 67 14 88/51 04/12/19 00:00 98.0 F 64 16 90/55 04/11/19 20:00 98.2 F 72 16 112/60 04/11/19 16:00 61 73 20 118/79 130/70 04/11/19 15:21 62 18 150/78 04/11/19 15:00 64 18 136/84 04/11/19 14:30 68 18 132/77 04/11/19 14:00 78 18 135/79 04/11/19 13:30 144/82 04/11/19 13:16 87 18 144/78 04/11/19 13:00 73 12 153/93 04/11/19 12:43 04/11/19 12:27 98.1 F 88 18 142/86 Pulse Ox 04/12/19 08:05 97 04/12/19 04:00 94 L 04/12/19 00:00 96 04/11/19 20:00 97 04/11/19 16:00 97 04/11/19 15:21 99 04/11/19 15:00 04/11/19 14:30 100 04/11/19 14:00 98 04/11/19 13:30 04/11/19 13:16 99 04/11/19 13:00 98 04/11/19 12:43 96 04/11/19 12:27 98 Intake and Output 04/11/19 04/12/19 04/12/19 22:59 06:59 14:59 Intake Total 240 Output Total 150 Balance 90 Intake: Oral 240 Output: Urine 150 Other: Voiding Method Toilet Toilet # Voids 0 2 1 # Bowel Movements 0 Weight 86.2 kg Results CBC & Chem 7: 04/11/19 12:56 04/11/19 12:56 Labs: Abnormal Lab Results - Last 24 Hours (Table) 04/11/19 04/12/19 Range/Units 12:56 05:26 RDW 17.3 H (11.5-15.5) % HDL Cholesterol 39 L (40-60) mg/dL Thrombosis Risk Factor Assmnt - Choose All That Apply Any of the Below Risk Factors Present?: No Each Risk Factor Represents 2 Points: Age 61-74 years, Patient confined to bed Other congenital or acquired thrombophilia - If yes, enter type in comment: No Thrombosis Risk Factor Assessment Total Risk Factor Score: 4 Thrombosis Risk Factor Assessment Level: Moderate Risk
[2019-04-12] MEDS: PRAVASTATIN SODIUM 20 MG TAB PO SCH (21:03)
[2019-04-12] MEDS: LISINOPRIL 10 MG TAB PO SCH (21:04)
[2019-04-12] MEDS: DONEPEZIL 10 MG TAB PO SCH (21:04)
[2019-04-12] MEDS: TEMAZEPAM 30 MG CAP PO PRN (21:05)
[2019-04-12] MEDS: ENOXAPARIN 40 MG/0.4 ML SYRINGE SQ SCH (21:05)
[2019-04-13] MEDS: ASPIRIN 325 MG TAB PO PRN ×2 (04:15→11:10)
[2019-04-13] MEDS: PANTOPRAZOLE 40 MG TABLET PO SCH (06:09)
[2019-04-13] MEDS: ISOSORBIDE MONONITRATE ER 30 MG TAB.ER.24H PO SCH (06:09)
[2019-04-13] MEDS: busPIRone HCl 10 MG TAB PO SCH (07:44)
[2019-04-13] MEDS: ENOXAPARIN 40 MG/0.4 ML SYRINGE SQ SCH (07:44)
[2019-04-13] MEDS: METOPROLOL SUCCINATE (ER) 25 MG TAB.ER.24H PO SCH (07:45)
[2019-04-13] MEDS: levETIRAcetam 500 MG TAB PO SCH (07:45)
[2019-04-13] MEDS: NICOTINE 21MG/24HR PATCH TRANSDERM SCH (07:45)
[2019-04-13] MEDS: ASPIRIN 81 MG PO SCH (07:45)
[2019-04-13] MEDS: DICYCLOMINE 20 MG TAB PO SCH ×2 (07:45→12:55)
[2019-04-13] MEDS: amLODIPine 5 MG TAB PO SCH (07:45)
--- NOTE | 2019-04-13 10:31 | CT ---
EXAMINATION TYPE: CT brain wo con DATE OF EXAM: 04/13/2019 HISTORY: Follow up study, difficulty in speech on admission [address] DLP: 1094.4 mGycm. Automated Exposure Control for Dose Reduction was Utilized. TECHNIQUE: CT scan of the head is performed without contrast. COMPARISON: CT brain 2 days ago and older studies. FINDINGS: There is no acute intracranial hemorrhage or midline shift identified. There is diffuse v entricular and sulcal prominence consistent with diffuse age-related cerebral atrophy. There is low- attenuation in the periventricular white matter consistent with chronic small vessel ischemic change. . Dependent fluid or mucosal thickening posterior inferior right frontal sinus remains present extend ing into anterior right ethmoid sinuses similar to most recent prior. Globes are intact bilaterally . IMPRESSION: No acute intracranial hemorrhage or midline shift. There is mild to moderate diffuse ag e-related cerebral atrophy and chronic small vessel ischemic change redemonstrated. No significant c hange from prior CTs.
[2019-04-13 11:12] VITALS: RESP 18
[2019-04-13] MEDS: SODIUM CHLORIDE 0.9% 1,000 ML IV SCH (12:56)
[2019-04-13 16:03] VITALS: BP 116/74; PULSE 61; TEMP 96.7
--- NOTE | 2019-04-13 22:45 | P.DS ---
Providers Date of admission: 04/11/19 14:46 Expected date of discharge: 04/13/19 Attending physician: Stephane El Consults: 04/11/19 14:46 Consult Physician Urgent Consulting Provider: Norberto Walton Consult Reason/Comments: tia Do you want consulting provider notified?: Yes Primary care physician: [facility] Course: Chief Complaint: Slow speech Hospital course: This is a 68-year-old patient who follows with Dr. Felix. Patient was here in the hospital from February 22 through February 27. Patient was transferred out to [facility] due to lack of neurological coverage at that time. Patient at that time and presented when he refers from laying on the floor between the chair and at the end of the table laying naked. Patient was recently in the psych in the hospital and was admitted there for a questionable diagnosis seizures also the cardiac arrest. Patient also had a history of fall with hitting his head on a concrete floor. Patient had then been on life support and was extubated. On the previous admission to [facility]. Patient is felt to have concussion from his head injury. Prior few days ago. Patient also was witnessed to have tonic-clonic generalized seizures with normal EEG done here. It may be noted that the EEG done at [facility] had shown some possible seizure activity. Additional chronic stable medical conditions include coronary artery disease with stent, GERD, hyperlipidemia, essential hypertension primary osteoarthritis. She now presents that he was watching a football game on Thursday that is 2 days ago and he noticed that he was started to talk slow. That was the reason for his presenting here. Denies any headache, no double vision. No weakness in the limbs. No change in swallowing. During my interview I noticed that patient's multiple sputums left. When I asked the patient the same he felt this is new. Patient had been watching television with a friend. computed tomography scan of brain was negative. Repeat computed tomography scan of the brain did not show any new ischemic event. EEG was negative for seizure activity. Patient will left-sided facial asymmetry was corrected. Possible TIA. Cleared by neurology. Patient cannot have MRI because of severely claustrophobic. Consultation: Dr. Walton from neurology Physical examination: VITAL SIGNS: 97.2, 73, 16, 122/73, 97% room air GENERAL: Average built, sitting up, but anxious. EYES: Pupils equal. Conjunctiva normal. HEENT: External appearance of nose and ears normal, oral cavity grossly normal. NECK: JVD not raised; masses not palpable. HEART: First and second heart sounds are normal; no edema. LUNGS: Respiratory rate normal; decreased breath sounds. ABDOMEN: Soft, nontender, liver spleen not palpable, no masses palpable. PSYCH: Alert and oriented x3; mood and affect anxiousl. NEUROLOGICAL: facial asymmetry not present,r power and sensation grossly intact. LYMPHATICS: No lymph nodes palpable in the axilla and neck INVESTIGATIONS, reviewed in the clinical context: White count 9.9 hemoglobin 14.3 potassium 4.1 bun 11 creatinine 0.97 LDL 52 EEG negative for seizure activity Computed tomography scan of the brain-mild periventricular white matter ischemic changes stable, repeat computed tomography scan negative Chest x-ray film personally reviewed by me-questionable right-sided infiltrate versus atelectasis EKG tracing-normal sinus rhythm discharge diagnosis: -possible TIA -Coronary artery disease with stent -GERD -Hyperlipidemia -Essential hypertension -Primary osteoarthritis -Chronic nicotine dependence patient cigarette smoker disposition: Home Patient Condition at Discharge: Stable Plan - Discharge Summary Discharge Rx Participant: Yes New Discharge Prescriptions: New Nicotine 21Mg/24Hr Patch [Habitrol] 1 patch TRANSDERM DAILY #14 patch Continue busPIRone HCl [Buspar] 20 mg PO BID Ezetimibe/Simvastatin [Vytorin 10-80 mg Tablet] 1 tab PO HS Isosorbide Mononitrate ER [Imdur] 30 mg PO BID Lisinopril [Zestril] 10 mg PO HS Pantoprazole [Protonix] 40 mg PO BID Dicyclomine HCl 20 mg PO QID Aspirin 81 mg PO DAILY #1 chewable amLODIPine [Norvasc] 5 mg PO BID Temazepam [Restoril] 30 mg PO HS PRN PRN Reason: Insomnia Diazepam [Valium] 2 mg PO BID PRN PRN Reason: Anxiety Donepezil [Aricept] 10 mg PO HS Metoprolol Succinate (ER) [Toprol XL] 25 mg PO DAILY levETIRAcetam [Keppra] 1,000 mg PO Q12HR Discontinued Pravastatin Sodium [Pravachol] 10 mg PO HS Discharge Medication List Ezetimibe/Simvastatin [Vytorin 10-80 mg Tablet] 1 tab PO HS 09/07/17 [History] Isosorbide Mononitrate ER [Imdur] 30 mg PO BID 09/07/17 [History] Lisinopril [Zestril] 10 mg PO HS 09/07/17 [History] Pantoprazole [Protonix] 40 mg PO BID 09/07/17 [History] busPIRone HCl [Buspar] 20 mg PO BID 09/07/17 [History] Dicyclomine HCl 20 mg PO QID 02/22/19 [History] Aspirin 81 mg PO DAILY #1 chewable 02/27/19 [Rx] Diazepam [Valium] 2 mg PO BID PRN 04/11/19 [History] Donepezil [Aricept] 10 mg PO HS 04/11/19 [History] Metoprolol Succinate (ER) [Toprol XL] 25 mg PO DAILY 04/11/19 [History] Temazepam [Restoril] 30 mg PO HS PRN 04/11/19 [History] amLODIPine [Norvasc] 5 mg PO BID 04/11/19 [History] levETIRAcetam [Keppra] 1,000 mg PO Q12HR 04/11/19 [History] Nicotine 21Mg/24Hr Patch [Habitrol] 1 patch TRANSDERM DAILY #14 patch 04/13/19 [Rx] Follow up Appointment(s)/Referral(s): Aaron Felix MD [Primary Care Provider] - 1-2 days (call tomorrow morning to make appt. ) Mikey Galeana MD [Medical Doctor] - 04/21/19 9:00 am Patient Instructions/Handouts: Transient Ischemic Attack (DC) Discharge Disposition: HOME SELF-CARE
== END 2019-04-13 17:13 | disposition home or self-care (01) | DRG 69 ==
LOC: EC 12:12 → 3SCARD 14:46
PROVIDERS: ADMIT Hospitalist; ATTEND Hospitalist
DX: G45.9 Transient cerebral ischemic attack, unspecified (principal); I69.998 Other sequelae following unspecified cerebrovascular disease; H53.8 Other visual disturbances; E78.5 Hyperlipidemia, unspecified; F17.210 Nicotine dependence, cigarettes, uncomplicated; F40.240 Claustrophobia; I10 Essential (primary) hypertension; I25.10 Atherosclerotic heart disease of native coronary artery without angina pectoris; I25.2 Old myocardial infarction; K21.9 Gastro-esophageal reflux disease without esophagitis; M19.91 Primary osteoarthritis, unspecified site; B19.20 Unspecified viral hepatitis C without hepatic coma; G43.909 Migraine, unspecified, not intractable, without status migrainosus; F41.9 Anxiety disorder, unspecified; Z79.82 Long term (current) use of aspirin; Z79.899 Other long term (current) drug therapy; Z88.5 Allergy status to narcotic agent; Z88.8 Allergy status to other drugs, medicaments and biological substances; Z95.5 Presence of coronary angioplasty implant and graft; Z82.3 Family history of stroke; Z83.3 Family history of diabetes mellitus
CPT/HCPCS: 36415; 70450; 71046; 80053; 80061; 80177; 84484; 85025; 85610; 85730; 93005; 95816; 96361; 96374; 99285

== ENCOUNTER → 2020-07-26 | Outpatient (CLI) | payer MEDICARE, OTHER ==
--- NOTE | 2020-07-26 14:33 | US ---
EXAMINATION TYPE: US carotid duplex BILAT DATE OF EXAM: 07/26/2020 COMPARISON: NONE CLINICAL HISTORY: I65.29 Occlusion and stenosis of unspecified carot. Stenosis, history of left endar terectomy EXAM MEASUREMENTS: RIGHT: Peak Systolic Velocity (PSV) cm/sec ----- Right CCA: 62.5 ----- Right ICA: 117.0 ----- Right ECA: 208.9 ICA/CCA ratio: 1.9 RIGHT: End Diastole cm/sec ----- Right CCA: 23.2 ----- Right ICA: 51.1 ----- Right ECA: 46.5 LEFT: Peak Systolic Velocity (PSV) cm/sec ----- Left CCA: 50.4 ----- Left ICA: 71.0 ----- Left ECA: 101.8 ICA/CCA ratio: 1.4 LEFT: End Diastole cm/sec ----- Left CCA: 19.3 ----- Left ICA: 28.1 ----- Left ECA: 19.3 VERTEBRALS (direction of flow): Right Vertebral: Antegrade Left Vertebral: Antegrade Rhythm: Normal Bilateral intimal thickening, plaque right bulb, elevated velocity: right proximal ECA, no significan t stenosis. IMPRESSION: 1. Mild narrowing less than 50% right carotid bifurcation with mild internal carotid artery narrowi ng and moderate stenosis of the right external carotid artery between 50 and 69%. 2. No significant flow-limiting stenosis left carotid bifurcation. Criteria for Assigning % of Stenosis / Diameter reduction (Estimation based on the indirect measurements of the internal carotid artery velocities (ICA PSV). 1. Normal (no stenosis)=ICA PSV < 125 cm/s: ratio < 2.0: ICA EDV<40 cm/s. 2. Less than 50% stenosis=ICA PSV < 125 cm/s: ratio < 2.0: ICA EDV<40 cm/s. 3. 50 to 69% stenosis=ICA PSV of 125 to 230 cm/s: ration 2.0 ? 4.0: ICA EDV 40-100 cm/s. 4. Greater than 70% stenosis to near occlusion= ICA PSV > 230 cm/s: ratio > 4.0: ICA EDV > 100 cm/s. 5. Near occlusion= ICA PSV velocities may be low or undetectable: variable ratio and ICA EDV. 6. Total occlusion=unable to detect flow.
== END | disposition home or self-care (01) ==
LOC: RADUSWWP 13:43
PROVIDERS: ATTEND Psychiatry & Neurology Neurology
DX: I65.21 Occlusion and stenosis of right carotid artery (principal); Z86.73 Personal history of transient ischemic attack (TIA), and cerebral infarction without residual deficits
CPT/HCPCS: 93880

== ENCOUNTER 2022-03-31 13:00 | Emergency (ER) | payer MEDICARE, OTHER ==
[2022-03-31 13:40] VITALS: TEMP 98.4
--- NOTE | 2022-03-31 18:57 | ED ---
Extremity Problem HPI - General Chief complaint: Extremity Problem,Nontraumatic Stated complaint: Left leg swelling Time Seen by Provider: 03/31/22 18:45 Source: patient, RN notes reviewed Mode of arrival: ambulatory Limitations: no limitations - History of Present Illness Initial comments: This is a pleasant 71-year-old male with a history of coronary artery disease, previous CVA and other comorbidities as listed. Patient presents today stating that he has sciatica which started in his right leg on Thursday. Patient states she is really having a hard time walking from this. Patient states it seems to start in the posterior aspect of his right leg and run down the entire leg. Exacerbated by movement. Somewhat alleviated by rest. However the patient is also complaining of bilateral leg edema which also just started. When we go through the review of systems the patient states he has had some sporadic chest pains, none today. He is also had some increasing shortness of breath. Patient has no history of congestive heart failure. Patient not on anticoagulation. No headache, no fever or chills, no changes in vision or hearing, no sore throat or difficulty with speech, no neck pain, no abdominal pain, no nausea or vomiting, no changes in urination or bowel movements, no numbness or tingling, no skin rashes or lesions. Past medical, surgical, social, and family history reviewed. - Related Data Home Medications Medication Instructions Recorded Confirmed Ezetimibe/Simvastatin [Vytorin 1 tab PO HS 09/07/17 04/11/19 10-80 mg Tablet] Isosorbide Mononitrate ER [Imdur] 30 mg PO BID 09/07/17 04/11/19 Pantoprazole [Protonix] 40 mg PO BID 09/07/17 04/11/19 busPIRone HCl [Buspar] 20 mg PO BID 09/07/17 04/11/19 lisinopriL [Zestril] 10 mg PO HS 09/07/17 04/11/19 Dicyclomine HCl 20 mg PO QID 02/22/19 04/11/19 Donepezil [Aricept] 10 mg PO HS 04/11/19 04/11/19 Metoprolol Succinate (ER) [Toprol 25 mg PO DAILY 04/11/19 04/11/19 XL] Temazepam [Restoril] 30 mg PO HS PRN 04/11/19 04/11/19 amLODIPine [Norvasc] 5 mg PO BID 04/11/19 04/11/19 diazePAM [Valium] 2 mg PO BID PRN 04/11/19 04/11/19 levETIRAcetam [Keppra] 1,000 mg PO Q12HR 04/11/19 04/11/19 Previous Rx's Medication Instructions Recorded Aspirin 81 mg PO DAILY #1 chewable 02/27/19 Nicotine 21Mg/24Hr Patch [Habitrol] 1 patch TRANSDERM DAILY #14 patch 04/13/19 methylPREDNISolone Dose Pack 4 mg PO DIRECTED #21 tab 03/31/22 [Medrol Dose Pack] Allergies Allergy/AdvReac Type Severity Reaction Status Date / Time alprazolam [From Xanax] Allergy Unknown Verified 03/31/22 13:40 codeine Allergy Rash/Hives Verified 03/31/22 13:40 zolpidem [From Ambien] AdvReac "salty" Verified 03/31/22 13:40 taste in mouth, numb mouth Review of Systems ROS Statement: Those systems with pertinent positive or pertinent negative responses have been documented in the HPI. ROS Other: All systems not noted in ROS Statement are negative. Past Medical History Past Medical History: Coronary Artery Disease (CAD), CVA/TIA, GERD/Reflux, Hyperlipidemia, Hypertension, Liver Disease, Myocardial Infarction ([place]), Vascular Disorder Additional Past Medical History / Comment(s): Patient states he was admitted to the hospital January after a fall with head injury/new onset seizures and was hospitalized at [facility] in [place]. He was on life support and was extubated and had one more seizure. 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 Patient states he has Hepatitis C. Last Myocardial Infarction Date:: 2011 History of Any Multi-Drug Resistant Organisms: None Reported Past Surgical History: Heart Catheterization With Stent, Orthopedic Surgery Additional Past Surgical History / Comment(s): PCI with a total of 7 stents per pt, L caratid endartectomy, L shoulder surgery for injury, R knee/R hip/R elbow/R wrist ligament/tendon type surgeries injuries-has pins in hand, colonoscopy. Past Anesthesia/Blood Transfusion Reactions: No Reported Reaction Date of Last Stent Placement:: 2011 Past Psychological History: Anxiety Smoking Status: Current every day smoker Past Alcohol Use History: None Reported Past Drug Use History: Marijuana - Past Family History Father Family Medical History: CVA/TIA Additional Family Medical History / Comment(s): Father is from CVA. Pt states father from "stupidity." Mother Family Medical History: Diabetes Mellitus Additional Family Medical History / Comment(s): Mother from diabetes at the age of 52 yrs. Brother(s) Family Medical History: Diabetes Mellitus Additional Family Medical History / Comment(s): Brother at the age of 32 yrs from type 1 diabetes. General Exam - General Exam Comments Initial Comments: Somewhat deconditioned appearing 71-year-old male in moderate distress secondary to right leg pain. Cranial nerves II through XII grossly intact. Does not appear to be ill or toxic. Adequate tissue perfusion. Normal capillary refill. No mottling. No erythema Limitations: no limitations General appearance: alert, in distress Head exam: Present: atraumatic, normocephalic, normal inspection Eye exam: Present: normal appearance, PERRL, EOMI. Absent: scleral icterus, conjunctival injection, periorbital swelling ENT exam: Present: normal exam, normal oropharynx, mucous membranes moist, normal external ear exam Neck exam: Present: normal inspection, full ROM. Absent: tenderness, meningismus, lymphadenopathy Respiratory exam: Present: normal lung sounds bilaterally. Absent: respiratory distress, wheezes, rales, rhonchi, stridor Cardiovascular Exam: Present: regular rate, normal rhythm, normal heart sounds. Absent: systolic murmur, diastolic murmur, rubs, gallop, clicks GI/Abdominal exam: Present: soft, normal bowel sounds. Absent: distended, tenderness, guarding, rebound, rigid Extremities exam: Present: normal inspection, full ROM, normal capillary refill, pedal edema (Edema to both lower extremities, right greater than left. No evidence of infectious process. No erythema. Pedal pulses intact). Absent: tenderness, joint swelling, calf tenderness Back exam: Present: normal inspection. Absent: full ROM (Limited secondary to pain in the distribution of the right sciatic nerve), tenderness Neurological exam: Present: alert, oriented X3, CN II-XII intact, reflexes normal (Reflexes normal, great toe extensor strength is normal.), other (Straight leg raise is positive on the left at about 30. Patient has pain in the region of the sciatic nerve distribution.). Absent: altered, normal gait, motor sensory deficit Psychiatric exam: Present: normal affect, normal mood Skin exam: Present: warm, dry, intact, normal color. Absent: rash, erythema, urticaria, vesicles Course Vital Signs 03/31/22 03/31/22 03/31/22 13:37 20:16 23:10 Temperature 98.4 F Pulse Rate 109 H 101 H 101 H Respiratory 18 16 16 Rate Blood Pressure 152/89 147/78 143/90 O2 Sat by Pulse 98 98 98 Oximetry - Reevaluation(s) Reevaluation #1: 03/31/22 23:21 Medical record is reviewed Symptoms are improved here in the emergency department, patient much improved after medications. No distress. Patient is informed of results and questions answered Patient in no distress Medical Decision Making - Medical Decision Making Patient appears to have multiple issues to include right-sided sciatica but also appears to have bilateral lower extremity edema. Patient noted to be somewhat tachycardic in triage. easily. We'll work the patient up for possible congestive heart failure. We'll obtain a bilateral lower extremities venous Doppler. Certainly the patient likely has sciatic nerve irritation compounding the situation. Does not appear to be consistent with infectious or vascular etiology. Patient improved at discharge. Pain much improved. Vital signs stable, patient afebrile. Patient will need to follow-up with his regular physician regarding the dependent edema. I did discuss imaging findings with the patient to include bilateral Almeida's cyst. There was no evidence of DVT. Patient had no evidence of infectious process. No evidence of arterial insufficiency. Pedal pulses were 2+ out of 4. Patient able to ambulate much better after pain medications. Patient does have OxyContin at home. Patient was told to return to the ER for any signs or symptoms worsen. Told to return immediately if any other problems arise. All questions answered. Treatment plan discussed. Patient in agreement Every effort has been made to ensure accuracy of this dictation. However, due to the limitations of electronic medical records and dictation devices, errors in charting still occur. Discussed conservative therapy for dependent edema such as elevation, salt restriction, and compression stockings. The case was discussed in detail with ED attending physician. Presentation, findings, treatment plan discussed in detail. Supervising physician Dr. Mccullough - Lab Data Result diagrams: 03/31/22 20:02 03/31/22 20:02 Lab Results 03/31/22 03/31/22 03/31/22 Range/Units 20:02 20:02 20:02 WBC 13.0 H (3.8-10.6) k/uL RBC 4.41 (4.30-5.90) m/uL Hgb 12.1 L (13.0-17.5) gm/dL Hct 38.9 L (39.0-53.0) % MCV 88.2 (80.0-100.0) fL MCH 27.5 (25.0-35.0) pg MCHC 31.2 (31.0-37.0) g/dL RDW 15.3 (11.5-15.5) % Plt Count 363 (150-450) k/uL MPV 7.7 Neutrophils % 72 % Lymphocytes % 14 % Monocytes % 11 % Eosinophils % 1 % Basophils % 1 % Neutrophils # 9.3 H (1.3-7.7) k/uL Lymphocytes # 1.8 (1.0-4.8) k/uL Monocytes # 1.5 H (0-1.0) k/uL Eosinophils # 0.1 (0-0.7) k/uL Basophils # 0.1 (0-0.2) k/uL Sodium 132 L (137-145) mmol/L Potassium 4.2 (3.5-5.1) mmol/L Chloride 97 L (98-107) mmol/L Carbon Dioxide 21 L (22-30) mmol/L Anion Gap 14 mmol/L BUN 14 (9-20) mg/dL Creatinine 0.83 (0.66-1.25) mg/dL Est GFR (CKD-EPI)AfAm >90 (>60 ml/min/1.73 sqM) Est GFR (CKD-EPI)NonAf 89 (>60 ml/min/1.73 sqM) Glucose 116 H (74-99) mg/dL Calcium 9.5 (8.4-10.2) mg/dL Magnesium 1.9 (1.6-2.3) mg/dL Total Bilirubin 0.8 (0.2-1.3) mg/dL AST 15 L (17-59) U/L ALT 14 (4-49) U/L Alkaline Phosphatase 96 (38-126) U/L Troponin I <0.012 (0.000-0.034) ng/mL NT-Pro-B Natriuret Pep pg/mL Total Protein 6.7 (6.3-8.2) g/dL Albumin 4.1 (3.5-5.0) g/dL 03/31/22 Range/Units 20:02 WBC (3.8-10.6) k/uL RBC (4.30-5.90) m/uL Hgb (13.0-17.5) gm/dL Hct (39.0-53.0) % MCV (80.0-100.0) fL MCH (25.0-35.0) pg MCHC (31.0-37.0) g/dL RDW (11.5-15.5) % Plt Count (150-450) k/uL MPV Neutrophils % % Lymphocytes % % Monocytes % % Eosinophils % % Basophils % % Neutrophils # (1.3-7.7) k/uL Lymphocytes # (1.0-4.8) k/uL Monocytes # (0-1.0) k/uL Eosinophils # (0-0.7) k/uL Basophils # (0-0.2) k/uL Sodium (137-145) mmol/L Potassium (3.5-5.1) mmol/L Chloride (98-107) mmol/L Carbon Dioxide (22-30) mmol/L Anion Gap mmol/L BUN (9-20) mg/dL Creatinine (0.66-1.25) mg/dL Est GFR (CKD-EPI)AfAm (>60 ml/min/1.73 sqM) Est GFR (CKD-EPI)NonAf (>60 ml/min/1.73 sqM) Glucose (74-99) mg/dL Calcium (8.4-10.2) mg/dL Magnesium (1.6-2.3) mg/dL Total Bilirubin (0.2-1.3) mg/dL AST (17-59) U/L ALT (4-49) U/L Alkaline Phosphatase (38-126) U/L Troponin I (0.000-0.034) ng/mL NT-Pro-B Natriuret Pep 213 pg/mL Total Protein (6.3-8.2) g/dL Albumin (3.5-5.0) g/dL - EKG Data EKG Comments: EKG done at 2102 and read by the ED attending physician reveals sinus rhythm with a rate of 92, normal intervals, likely old inferior myocardial infarction according computerized interpretation. When compared to the previous study from 2019. There are no acute changes. [place] is normal. QRS morphology otherwise normal. No evidence of acute changes otherwise. Depression with T-wave flattening in lead 3 which was seen on previous study - Radiology Data Radiology results: report reviewed, image reviewed Disposition Clinical Impression: Sciatica, right side, Almeida's cyst, Dependent edema Disposition: HOME SELF-CARE Condition: Good Instructions (If sedation given, give patient instructions): Almeida Cyst (ED), Sciatica (ED), Leg Edema (ED) Additional Instructions: Call tomorrow morning at 8 AM to set up a follow-up appointment with the orthope dic doctor, Dr. Loving. Elevate her legs as much as possible. Limit salt, consider compression stockings Make a follow-up appointment with your regular doctor Follow-up with your regular physician as directed. Return to the ER immediately if any symptoms worsen, new symptoms arise, or any other problems develop. Is patient prescribed a controlled substance at d/c from ED?: No Referrals: Aaron Felix MD [Primary Care Provider] - 1-2 days Time of Disposition: 23:24
--- NOTE | 2022-03-31 19:30 | XR ---
EXAMINATION TYPE: XR chest 1V portable DATE OF EXAM: 03/31/2022 COMPARISON: None HISTORY: Chest pain TECHNIQUE: FINDINGS: Heart is normal. Lungs are clear of infiltrate. No heart failure. There is previous left sh oulder surgery. No pleural effusion. There are no hilar masses. Bony thorax is intact. IMPRESSION: No active cardiopulmonary disease. Normal heart.
[2022-03-31 20:17] VITALS: RESP 16
[2022-03-31 20:25] LABS: Basophils # (A) 0.1 k/uL (0-0.2); Basophils % (A) 1 %; Eosinophils # (A) 0.1 k/uL (0-0.7); Eosinophils % (A) 1 %; HCT 38.9 % (39.0-53.0); HGB 12.1 gm/dL (13.0-17.5); Lymphocytes # (A) 1.8 k/uL (1.0-4.8); Lymphocytes % (A) 14 %; MCH 27.5 pg (25.0-35.0); MCHC 31.2 g/dL (31.0-37.0); MCV 88.2 fL (80.0-100.0); Mean Platelet Volume 7.7; Monocytes # (A) 1.5 k/uL (0-1.0); Monocytes % (A) 11 %; Neutrophils # (A) 9.3 k/uL (1.3-7.7); Neutrophils % (A) 72 %; Platelet Count 363 k/uL (150-450); RBC 4.41 m/uL (4.30-5.90); RDW 15.3 % (11.5-15.5)
[2022-03-31 20:40] LABS: ALT 14 U/L (4-49); AST 15 U/L (17-59); African American GFR (CKD) >90 (>60 ml/min/1.73 sqM); Albumin 4.1 g/dL (3.5-5.0); Alkaline Phosphatase 96 U/L (38-126); Anion Gap 14 mmol/L; Blood Urea Nitrogen 14 mg/dL (9-20); Calcium 9.5 mg/dL (8.4-10.2); Carbon Dioxide 21 mmol/L (22-30); Chloride 97 mmol/L (98-107); Glucose 116 mg/dL (74-99); Magnesium 1.9 mg/dL (1.6-2.3); Non-African American GFR(CKD) 89 (>60 ml/min/1.73 sqM); Potassium 4.2 mmol/L (3.5-5.1); Sodium 132 mmol/L (137-145); Total Bilirubin 0.8 mg/dL (0.2-1.3); Total Protein 6.7 g/dL (6.3-8.2)
--- NOTE | 2022-03-31 20:58 | US ---
EXAMINATION TYPE: US venous doppler duplex LE DATE OF EXAM: 03/31/2022 8:52 PM COMPARISON: NONE CLINICAL HISTORY: Bilateral leg pain, edema. Bilateral leg pain, worse in right leg SIDE PERFORMED: Bilateral TECHNIQUE: The lower extremity deep venous system is examined utilizing real time linear array sonog walker with graded compression, doppler sonography and color-flow sonography. VESSELS IMAGED: Common Femoral Vein Deep Femoral Vein Greater Saphenous Vein * Femoral Vein Popliteal Vein Small Saphenous Vein * Proximal Calf Veins (* superficial vessels) Right Leg: Negative for DVT. Almeida's cyst seen in right pop fossa measuring 5.1 x 3.7 x 1.9 cm. Left Leg: Negative for DVT. Almeida's cyst seen in left pop fossa measuring 2.4 x 1.9 x 1.3 cm. IMPRESSION: No evidence of deep vein thrombosis in both legs. There is bilateral popliteal cysts.
[2022-03-31] MEDS ORDERED: ONDANSETRON 4 MG/2 ML VIAL IVP STA (21:50)
[2022-03-31] MEDS ORDERED: methylPREDNISolone SOD SUCCI 125 MG/2 ML VIAL IV STA (21:50)
[2022-03-31] MEDS ORDERED: HYDROmorphone 1 MG/ML 1 ML SYRINGE IVP STA (21:50)
[2022-03-31] MEDS ORDERED: FUROSEMIDE 10 MG/ML 2 ML VIAL IV STA (21:51)
[2022-03-31] MEDS ORDERED: SODIUM CHLORIDE 0.9% 500 ML 500 ML IV ONE (21:55)
[2022-03-31 23:52] VITALS: BP 159/92; PULSE 108
== END 2022-03-31 23:54 | disposition home or self-care (01) ==
LOC: EC 13:00
DX: M71.22 Synovial cyst of popliteal space [Baker], left knee (principal); M71.21 Synovial cyst of popliteal space [Baker], right knee; M54.31 Sciatica, right side; R22.43 Localized swelling, mass and lump, lower limb, bilateral; I25.10 Atherosclerotic heart disease of native coronary artery without angina pectoris; Z86.73 Personal history of transient ischemic attack (TIA), and cerebral infarction without residual deficits; K21.9 Gastro-esophageal reflux disease without esophagitis; E78.5 Hyperlipidemia, unspecified; I10 Essential (primary) hypertension; I25.2 Old myocardial infarction; F41.9 Anxiety disorder, unspecified; F17.200 Nicotine dependence, unspecified, uncomplicated; F12.90 Cannabis use, unspecified, uncomplicated; Z88.2 Allergy status to sulfonamides; Z88.5 Allergy status to narcotic agent; Z88.8 Allergy status to other drugs, medicaments and biological substances; Z79.899 Other long term (current) drug therapy
CPT/HCPCS: 36415; 71045; 80053; 83735; 83880; 84484; 85025; 93005; 93970; 96361; 96374; 96375; 99285

== ENCOUNTER 2022-10-02 22:57 | Emergency (ER) | payer MEDICARE, OTHER ==
[2022-10-02 23:06] VITALS: TEMP 98.3
--- NOTE | 2022-10-02 23:19 | ED ---
General Adult HPI - General Chief complaint: Weakness Stated complaint: Weakness Time Seen by Provider: 10/02/22 23:01 Source: patient, EMS Mode of arrival: EMS Limitations: no limitations - History of Present Illness Initial comments: Dictation was produced using [employer] dictation software. please excuse any grammatical, word or spelling errors. Chief Complaint: 71-year-old male presents to emergency department for weakness and bilateral lower extremity numbness History of Present Illness: She 71-year-old male he has multiple comorbidities. Patient brought in from home by EMS. Patient states that he woke up this morning and both of his legs felt numb. He denies any back pain. Patient in the emergency department after his neighbor called EMS. He tried to walk remembers neighbors house to get some coffee when all of a sudden he did not have the strength to do so. Patient was witnessed and EMS was called. Patient denies any pain complaints. States that he feels numb from his bilateral hip creases all the way down circumferentially. Patient denies any leg pain. Patient has history of chronic back pain. Patient states that his back pain seems to be at baseline. Denies any headache. No other complaints. The ROS documented in this emergency department record has been reviewed and confirmed by me. Those systems with pertinent positive or negative responses have been documented in the HPI. All other systems are other negative and/or noncontributory. PHYSICAL EXAM: General Impression: Alert and oriented x3, not in acute distress, smiling and joking with nursing staff HEENT: Normocephalic atraumatic, extra-ocular movements intact, pupils equal and reactive to light bilaterally, mucous membranes moist. Cardiovascular: Heart regular rate and rhythm Chest: Able to complete full sentences, no retractions, no tachypnea Abdomen: abdomen soft, non-tender, non-distended, no organomegaly Musculoskeletal: Pulses present and equal in all extremities, no peripheral edema Motor: no focal deficits noted Neurological: CN II-XII grossly intact, no focal motor. Alleged numbness to light touch or painful stimuli of the bilateral lower extremities. With leg raising movement he is able to feel pain to his mid tibial region bilaterally Skin: Intact with no visualized rashes Psych: Normal affect and mood ED course: 71-year-old male presents emergency department for bilateral lower extremity neuropathy and bilateral lower extremity weakness. Signs upon arrival are within acceptable limits. Nursing notes and chart review was performed My EKG interpretation: Ventricular rate 96, sinus rhythm,. 149, QRS 96, QTC 49. No DC prolongation, no QTC prolongation, no ST or T-wave changes noted. EKG compared to 02/28/2022 showing no changes. Overall, this EKG is unremarkable Clinical presentation at the bedside suggest that patient is having neuropathy. He does have history of chronic pain. States that his pain is mostly at baseline. Patient does report having had suffered falls in the recent past but nothing today. Physical examination is neurovascularly intact for his bilateral lower extremities. His 2+ DP pulses bilaterally and 2+ PT pulses bilaterally. His extremities are warm and nonischemic appearing. Does not have any high risk back pain, burning symptoms. No saddle anesthesia. No bowel or bladder incontinence. His distribution of paresthesias appears to be like a sock dis tribution which suggests neuropathy. Was pt. sent in by a medical professional or institution (, PA, FIRE CHIEF, urgent care, hospital, or senior care...) When possible be specific @ -No Did you speak to anyone other than the patient for history (EMS, parent, family, police, friend...)? What history was obtained from this source @ -No Did you review nursing and triage notes (agree or disagree)? Why? @ -I reviewed and agree with nursing and triage notes Were old charts reviewed (outside hosp., previous admission, EMS record, old EKG, old radiological studies, urgent care reports/EKG's, senior care records)? Report findings @ -No old charts were reviewed Differential Diagnosis (chest pain, altered mental status, abdominal pain women, abdominal pain men, vaginal bleeding, musculoskeletal, weakness, fever, dyspnea, syncope, headache, dizziness, GI bleed, back pain, seizure, CVA, palpatations, mental health)? @ -Differential Back Pain: Strain, zoster, cauda equina syndrome, epidural abscess, vertebral osteomyelitis, discitis, fracture, subluxation, disc herniation, DJD, spinal stenosis, dissection, AAA, pancreatitis, peptic ulcer disease, pyelonephritis, kidney stone, this is not meant to be an all-inclusive list. EKG interpreted by me (3pts min.). @ -See above X-rays interpreted by me (1pt min.). @ -None done CT interpreted by me (1pt min.). @ -Incidental aneurysm. He does appear to be central canal stenosis in the lumbar spine. No obvious occult fractures U/S interpreted by me (1pt. min.). @ -None done What testing was considered but not performed or refused? (CT, X-rays, U/S, labs)? Why? @ -none What meds were considered but not given or refused? Why? @ -none Did you discuss the management of the patient with other professionals (professionals i.e. , PA, FIRE CHIEF, lab, RT, psych nurse, oncology social work, lawyers, teacher, [employer] senior officer, rehabilitation case coordinator)? Give summary @ -No Was smoking cessation discussed for >3mins.? @ -No Was critical care preformed (if so, how long)? @ -No Were there social determinants of health that impacted care today? How? (Homelessness, low income, unemployed, alcoholism, drug addiction, transportation, low edu. Level, literacy, decrease access to med. care, retirement, rehab)? @ -Social situation Was there de-escalation of care discussed even if they declined (Discuss DNR or withdrawal of care, Hospice)? DNR status @ -No What co-morbidities impacted this encounter? (DM, HTN, Smoking, COPD, CAD, Cancer, CVA, ARF, Chemo, Hep., AIDS, mental health diagnosis, sleep apnea, morbid obesity)? @ -None Was patient admitted / discharged? Hospital course, mention meds given and route, prescriptions, significant lab abnormalities, going to OR and other pertinent info. @ -61-year-old male presents emergency Department with neuropathy symptoms in the distribution of his bilateral lower extremity. CT imaging shows incidental finding of aneurysm to his abdominal aorta. Patient is notified of this and that he should follow-up with primary care doctor regarding this. Patient offered admission for medical monitoring, pain control and orthopedic spine c onsultation. Patient refusing states that he rather go home. He also reports that he has to take care of his dogs. Patient is well-appearing. He states that he will follow up with his primary care doctor. Return precautions discussed. Patient be discharged Undiagnosed new problem with uncertain prognosis? @ -No Drug Therapy requiring intensive monitoring for toxicity (Heparin, Nitro, Insulin, Cardizem)? @ -No Were any procedures done? @ -No Diagnosis/symptom? Acute, or Chronic, or Acute on Chronic? Uncomplicated (without systemic symptoms) or Complicated (systemic symptoms)? @ -1. Acute lower extremity neuropathy, 2. Abdominal aortic aneurysm incidentally found Side effects of treatment? @ -No Exacerbation, Progression, or Severe Exacerbation? @ -No Poses a threat to life or bodily function? How? (Chest pain, [place], [place], pneumonia, PE, COPD, DKA, ARF, appy, cholecystitis, CVA, Diverticulitis, Homicidal, Suicidal, threat to staff... and all critical care pts) @ -No - Related Data Home Medications Medication Instructions Recorded Confirmed Ezetimibe/Simvastatin [Vytorin 1 tab PO HS 09/07/17 04/11/19 10-80 mg Tablet] Isosorbide Mononitrate ER [Imdur] 30 mg PO BID 09/07/17 04/11/19 Pantoprazole [Protonix] 40 mg PO BID 09/07/17 04/11/19 busPIRone HCl [Buspar] 20 mg PO BID 09/07/17 04/11/19 lisinopriL [Zestril] 10 mg PO HS 09/07/17 04/11/19 Dicyclomine HCl 20 mg PO QID 02/22/19 04/11/19 Donepezil [Aricept] 10 mg PO HS 04/11/19 04/11/19 Metoprolol Succinate (ER) [Toprol 25 mg PO DAILY 04/11/19 04/11/19 XL] Temazepam [Restoril] 30 mg PO HS PRN 04/11/19 04/11/19 amLODIPine [Norvasc] 5 mg PO BID 04/11/19 04/11/19 diazePAM [Valium] 2 mg PO BID PRN 04/11/19 04/11/19 levETIRAcetam [Keppra] 1,000 mg PO Q12HR 04/11/19 04/11/19 Previous Rx's Medication Instructions Recorded Aspirin 81 mg PO DAILY #1 chewable 02/27/19 Nicotine 21Mg/24Hr Patch [Habitrol] 1 patch TRANSDERM DAILY #14 patch 04/13/19 methylPREDNISolone Dose Pack 4 mg PO DIRECTED #21 tab 03/31/22 [Medrol Dose Pack] Allergies Allergy/AdvReac Type Severity Reaction Status Date / Time alprazolam [From Xanax] Allergy Unknown Verified 03/31/22 13:40 codeine Allergy Rash/Hives Verified 03/31/22 13:40 zolpidem [From Ambien] AdvReac "salty" Verified 03/31/22 13:40 taste in mouth, numb mouth Review of Systems ROS Statement: Those systems with pertinent positive or pertinent negative responses have been documented in the HPI. ROS Other: All systems not noted in ROS Statement are negative. Past Medical History Past Medical History: Coronary Artery Disease (CAD), CVA/TIA, GERD/Reflux, Hyperlipidemia, Hypertension, Liver Disease, Myocardial Infarction ([place]), Vascular Disorder Additional Past Medical History / Comment(s): Patient states he was admitted to the hospital January after a fall with head injury/new onset seizures and was hospitalized at [facility] in [place]. He was on life support and was extubated and had one more seizure. 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 Patient states he has Hepatitis C. Last Myocardial Infarction Date:: 2011 History of Any Multi-Drug Resistant Organisms: None Reported Past Surgical History: Heart Catheterization With Stent, Orthopedic Surgery Additional Past Surgical History / Comment(s): PCI with a total of 7 stents per pt, L caratid endartectomy, L shoulder surgery for injury, R knee/R hip/R elbow/R wrist ligament/tendon type surgeries injuries-has pins in hand, colonoscopy. Past Anesthesia/Blood Transfusion Reactions: No Reported Reaction Date of Last Stent Placement:: 2011 Past Psychological History: Anxiety Smoking Status: Current every day smoker Past Alcohol Use History: None Reported Past Drug Use History: Marijuana - Past Family History Father Family Medical History: CVA/TIA Additional Family Medical History / Comment(s): Father is from CVA. Pt states father from "stupidity." Mother Family Medical History: Diabetes Mellitus Additional Family Medical History / Comment(s): Mother from diabetes at the age of 52 yrs. Brother(s) Family Medical History: Diabetes Mellitus Additional Family Medical History / Comment(s): Brother at the age of 32 y rs from type 1 diabetes. General Exam Limitations: no limitations Course Vital Signs 10/02/22 10/02/22 23:02 23:06 Temperature 98.3 F Pulse Rate 99 Respiratory 18 Rate Blood Pressure 111/76 O2 Sat by Pulse 93 L 98 Oximetry Medical Decision Making - Lab Data Result diagrams: 10/02/22 23:44 10/02/22 23:44 Lab Results 10/02/22 10/02/22 Range/Units 23:44 23:44 WBC 9.0 (3.8-10.6) k/uL RBC 4.25 L (4.30-5.90) m/uL Hgb 13.3 (13.0-17.5) gm/dL Hct 39.0 (39.0-53.0) % MCV 91.8 (80.0-100.0) fL MCH 31.3 (25.0-35.0) pg MCHC 34.1 (31.0-37.0) g/dL RDW 15.2 (11.5-15.5) % Plt Count 203 (150-450) k/uL MPV 9.2 Neutrophils % 65 % Lymphocytes % 21 % Monocytes % 9 % Eosinophils % 1 % Basophils % 1 % Neutrophils # 5.9 (1.3-7.7) k/uL Lymphocytes # 1.9 (1.0-4.8) k/uL Monocytes # 0.8 (0-1.0) k/uL Eosinophils # 0.1 (0-0.7) k/uL Basophils # 0.0 (0-0.2) k/uL Sodium 135 L (137-145) mmol/L Potassium 3.9 (3.5-5.1) mmol/L Chloride 105 (98-107) mmol/L Carbon Dioxide 22 (22-30) mmol/L Anion Gap 8 mmol/L BUN 15 (9-20) mg/dL Creatinine 1.41 H (0.66-1.25) mg/dL Est GFR (CKD-EPI)AfAm 58 (>60 ml/min/1.73 sqM) Est GFR (CKD-EPI)NonAf 50 (>60 ml/min/1.73 sqM) Glucose 95 (74-99) mg/dL Calcium 8.8 (8.4-10.2) mg/dL Magnesium 2.1 (1.6-2.3) mg/dL Total Bilirubin 0.5 (0.2-1.3) mg/dL AST 15 L (17-59) U/L ALT 17 (4-49) U/L Alkaline Phosphatase 89 (38-126) U/L Total Protein 6.2 L (6.3-8.2) g/dL Albumin 3.8 (3.5-5.0) g/dL Disposition Clinical Impression: Neuropathy, Abdominal aortic aneurysm Disposition: HOME SELF-CARE Condition: Good Instructions (If sedation given, give patient instructions): Peripheral Neuropathy (ED), Nonruptured Abdominal Aortic Aneurysm (DC) Is patient prescribed a controlled substance at d/c from ED?: No Referrals: Aaron Felix MD [Primary Care Provider] - 1-2 days Jef Mehta DO [STAFF PHYSICIAN] - 1-2 days Alan Loving DO [Doctor of Osteopathic Medicine] - 1-2 days Time of Disposition: 00:51
[2022-10-03 00:03] LABS: Basophils % (A) 1 %; Eosinophils # (A) 0.1 k/uL (0-0.7); Eosinophils % (A) 1 %; HGB 13.3 gm/dL (13.0-17.5); Lymphocytes # (A) 1.9 k/uL (1.0-4.8); Lymphocytes % (A) 21 %; MCH 31.3 pg (25.0-35.0); MCHC 34.1 g/dL (31.0-37.0); MCV 91.8 fL (80.0-100.0); Mean Platelet Volume 9.2; Monocytes # (A) 0.8 k/uL (0-1.0); Monocytes % (A) 9 %; Neutrophils # (A) 5.9 k/uL (1.3-7.7); Neutrophils % (A) 65 %; Platelet Count 203 k/uL (150-450); RBC 4.25 m/uL (4.30-5.90); RDW 15.2 % (11.5-15.5)
[2022-10-03 00:12] LABS: Albumin 3.8 g/dL (3.5-5.0); Calcium 8.8 mg/dL (8.4-10.2); Magnesium 2.1 mg/dL (1.6-2.3); Potassium 3.9 mmol/L (3.5-5.1); Total Bilirubin 0.5 mg/dL (0.2-1.3); Total Protein 6.2 g/dL (6.3-8.2)
--- NOTE | 2022-10-03 00:36 | CT ---
EXAMINATION TYPE: CT lumbar spine wo con DATE OF EXAM: 10/03/2022 COMPARISON: None HISTORY: new onset lower extremity weakness & pain. unable to walk CT DLP: 1542.3 mGycm Automated exposure control for dose reduction was used. Images obtained from the level of T12-S2 vertebra with no contrast. The lumbar vertebrae have normal alignment. Disc spaces are fairly normal. Posterior elements are int act. No compression fracture. Facet joints are intact. There is mild hypertrophic facet arthropathy a t L4-5 and L5-S1. There is no lumbar paraspinal mass. There is some lateral recess stenosis and spina l stenosis at L3-4 and L4-5 due to facet arthropathy and ligament thickening. No focal bone destruction. Abdominal aorta is atheromatous. Sacroiliac joints are intact. There is aneurysm of the lower abdominal aorta on the posterior wall with focal bulging extending to the spine. The anterior posterior diameter of the aneurysm is 4.9 cm. The length is 3 cm. IMPRESSION: There are some spondylotic changes with mild posterior disc bulging at L3-4 and L4-5 with facet arthr opathy and relative spinal stenosis. There is aneurysm on the posterior wall of the lower abdominal aorta and the aorta measures up to 4.9 cm.
[2022-10-03 00:55] VITALS: BP 121/66; PULSE 90; RESP 16
== END 2022-10-03 01:14 | disposition home or self-care (01) ==
LOC: EC 22:57
DX: G62.9 Polyneuropathy, unspecified (principal); I71.40 Abdominal aortic aneurysm, without rupture, unspecified; I25.10 Atherosclerotic heart disease of native coronary artery without angina pectoris; I10 Essential (primary) hypertension; I25.2 Old myocardial infarction; Z86.73 Personal history of transient ischemic attack (TIA), and cerebral infarction without residual deficits; F41.9 Anxiety disorder, unspecified; F17.200 Nicotine dependence, unspecified, uncomplicated; F12.90 Cannabis use, unspecified, uncomplicated; Z88.5 Allergy status to narcotic agent; Z88.8 Allergy status to other drugs, medicaments and biological substances; Z79.899 Other long term (current) drug therapy
CPT/HCPCS: 36415; 72131; 80053; 83735; 85025; 93005; 99285

== ENCOUNTER 2023-03-27 16:17 | Inpatient (IN) | payer MEDICARE, OTHER ==
[2023-03-27] MEDS ORDERED: SODIUM CHLORIDE 0.9% 1,000 ML IV STA (16:29)
[2023-03-27] MEDS ORDERED: Alteplase PER PHARMACY Stroke 1 EACH MISC MISCELLANE PRN (16:29)
[2023-03-27] MEDS ORDERED: LABETALOL 5 MG/ML VIAL MDV IVP STA (16:29)
[2023-03-27] MEDS ORDERED: ALTEPLASE 70 MG in EMPTY BAG 1 BAG IV STA (16:31)
[2023-03-27] MEDS ORDERED: ALTEPLASE BOLUS FOR STROKE 8 MG in EMPTY SYRINGE 1 SYR IV STA (16:31)
--- NOTE | 2023-03-27 16:35 | ED ---
Neuro HPI - General Chief Complaint: Neuro Symptoms/Deficit Stated Complaint: poss stroke Time Seen by Provider: 03/27/23 16:27 Source: patient, RN notes reviewed, old records reviewed Mode of arrival: wheelchair Limitations: physical limitation - History of Present Illness Is the patient presenting with stroke symptoms?: Yes -: hour(s) (0.5) Initial Comments: This is a 72 male to the ER for evaluation. Patient does have history of CVA with carotid surgery and history of stents heart disease stent placement IA. Patient coming in with severe neurological deficit left arm left leg numbness facial droop history of 95% disease Location: left face, left arm, left leg History of same: Yes Place: home Severity: mild Quality: weak, numb, tingling Improves With: none Worsens With: none Context: gradual onset Associated Symptoms: denies other symptoms Treatments Prior to Arrival: none - Related Data Home Medications: Home Medications Medication Instructions Recorded Confirmed Isosorbide Mononitrate ER [Imdur] 30 mg PO DAILY 09/07/17 03/27/23 lisinopriL [Zestril] 10 mg PO DAILY 09/07/17 03/27/23 Donepezil [Aricept] 10 mg PO HS 04/11/19 03/27/23 Temazepam [Restoril] 30 mg PO HS 04/11/19 03/27/23 amLODIPine [Norvasc] 5 mg PO DAILY 04/11/19 03/27/23 Atorvastatin [Lipitor] 40 mg PO DAILY 03/22/23 03/27/23 Citalopram Hydrobromide [CeleXA] 20 mg PO DAILY 03/22/23 03/27/23 Clopidogrel [Plavix] 75 mg PO DAILY 03/22/23 03/27/23 Cyclobenzaprine [Flexeril] 10 mg PO BID PRN 03/22/23 03/27/23 LORazepam [Ativan] 1 mg PO TID 03/22/23 03/27/23 Olopatadine HCl [Patanol 0.1%] 1 drop BOTH EYES TID 03/22/23 03/27/23 Pantoprazole Sodium [Protonix] 20 mg PO BID 03/22/23 03/27/23 oxyCODONE-APAP 10-325MG [Percocet 1 tab PO QID 03/22/23 03/27/23 10-325 mg] Previous Rx's Medication Instructions Recorded Aspirin 81 mg PO DAILY #1 chewable 02/27/19 Allergies/Adverse Reactions: Allergies Allergy/AdvReac Type Severity Reaction Status Date / Time alprazolam [From Xanax] Allergy Unknown Verified 03/27/23 16:23 codeine Allergy Rash/Hives Verified 03/27/23 16:23 zolpidem [From Ambien] AdvReac "salty" Verified 03/27/23 16:23 taste in mouth, numb mouth Review of Systems ROS Statement: Those systems with pertinent positive or pertinent negative responses have been documented in the HPI. ROS Other: All systems not noted in ROS Statement are negative. General Exam Limitations: physical limitation General appearance: alert, in no apparent distress, anxious Head exam: Present: atraumatic, normocephalic, normal inspection Eye exam: Present: normal appearance, PERRL, EOMI. Absent: scleral icterus, co njunctival injection, periorbital swelling ENT exam: Present: normal exam, mucous membranes moist Neck exam: Present: normal inspection. Absent: tenderness, meningismus, lymphadenopathy Respiratory exam: Present: normal lung sounds bilaterally. Absent: respiratory distress, wheezes, rales, rhonchi, stridor Cardiovascular Exam: Present: regular rate, normal rhythm, normal heart sounds. Absent: systolic murmur, diastolic murmur, rubs, gallop, clicks GI/Abdominal exam: Present: soft, normal bowel sounds. Absent: distended, tenderness, guarding, rebound, rigid Extremities exam: Present: normal inspection, full ROM, normal capillary refill. Absent: tenderness, pedal edema, joint swelling, calf tenderness Back exam: Present: normal inspection Neurological exam: Present: alert, oriented X3, CN II-XII intact Psychiatric exam: Present: normal affect, normal mood Skin exam: Present: warm, dry, intact, normal color. Absent: rash Stroke MDM - Lab Data Result diagrams: 03/31/23 05:43 03/31/23 05:43 Lab Results 03/27/23 03/27/23 03/27/23 Range/Units 16:30 16:34 16:34 WBC 10.1 (3.8-10.6) k/uL RBC 4.52 (4.30-5.90) m/uL Hgb 13.9 (13.0-17.5) gm/dL Hct 43.2 (39.0-53.0) % MCV 95.5 (80.0-100.0) fL MCH 30.7 (25.0-35.0) pg MCHC 32.1 (31.0-37.0) g/dL RDW 14.2 (11.5-15.5) % Plt Count 257 (150-450) k/uL MPV 8.6 Neutrophils % 77 % Lymphocytes % 16 % Monocytes % 5 % Eosinophils % 1 % Basophils % 0 % Neutrophils # 7.8 H (1.3-7.7) k/uL Lymphocytes # 1.6 (1.0-4.8) k/uL Monocytes # 0.5 (0-1.0) k/uL Eosinophils # 0.1 (0-0.7) k/uL Basophils # 0.0 (0-0.2) k/uL PT 9.4 (9.0-12.0) sec INR 0.9 (<1.2) APTT 24.2 (22.0-30.0) sec Sodium (137-145) mmol/L Potassium (3.5-5.1) mmol/L Chloride (98-107) mmol/L Carbon Dioxide (22-30) mmol/L Anion Gap mmol/L BUN (9-20) mg/dL Creatinine (0.66-1.25) mg/dL Est GFR (CKD-EPI)AfAm (>60 ml/min/1.73 sqM) Est GFR (CKD-EPI)NonAf (>60 ml/min/1.73 sqM) Glucose (74-99) mg/dL POC Glucose (mg/dL) 118 H (70-110) mg/dL POC Glu Facilities Planner ID Wolfe, Freddy Calcium (8.4-10.2) mg/dL Total Bilirubin (0.2-1.3) mg/dL AST (17-59) U/L ALT (4-49) U/L Alkaline Phosphatase (38-126) U/L Creatine Kinase (55-170) U/L Troponin I (0.000-0.034) ng/mL Total Protein (6.3-8.2) g/dL Albumin (3.5-5.0) g/dL 03/27/23 03/27/23 Range/Units 16:34 16:34 WBC (3.8-10.6) k/uL RBC (4.30-5.90) m/uL Hgb (13.0-17.5) gm/dL Hct (39.0-53.0) % MCV (80.0-100.0) fL MCH (25.0-35.0) pg MCHC (31.0-37.0) g/dL RDW (11.5-15.5) % Plt Count (150-450) k/uL MPV Neutrophils % % Lymphocytes % % Monocytes % % Eosinophils % % Basophils % % Neutrophils # (1.3-7.7) k/uL Lymphocytes # (1.0-4.8) k/uL Monocytes # (0-1.0) k/uL Eosinophils # (0-0.7) k/uL Basophils # (0-0.2) k/uL PT (9.0-12.0) sec INR (<1.2) APTT (22.0-30.0) sec Sodium 137 (137-145) mmol/L Potassium 4.8 (3.5-5.1) mmol/L Chloride 109 H (98-107) mmol/L Carbon Dioxide 19 L (22-30) mmol/L Anion Gap 9 mmol/L BUN 16 (9-20) mg/dL Creatinine 1.05 (0.66-1.25) mg/dL Est GFR (CKD-EPI)AfAm 82 (>60 ml/min/1.73 sqM) Est GFR (CKD-EPI)NonAf 71 (>60 ml/min/1.73 sqM) Glucose 120 H (74-99) mg/dL POC Glucose (mg/dL) (70-110) mg/dL POC Glu Facilities Planner ID Calcium 9.6 (8.4-10.2) mg/dL Total Bilirubin 0.5 (0.2-1.3) mg/dL AST 21 (17-59) U/L ALT 22 (4-49) U/L Alkaline Phosphatase 110 (38-126) U/L Creatine Kinase 65 (55-170) U/L Troponin I <0.012 (0.000-0.034) ng/mL Total Protein 7.4 (6.3-8.2) g/dL Albumin 4.4 (3.5-5.0) g/dL - NIH Stroke Scale 1a. Level of Consciousness: (1) not alert, arousable 1b. LOC Questions: (1) answers 1 question correctly 1c. LOC Commands: (1) performs 1 task correctly 2. Best Gaze: (1) partial gaze palsy 3. Visual: (1) partial hemianopia 4. Facial Palsy: (2) partial paralysis 5a. Motor Arm Left: (3) no gravity effort 5b. Motor Arm Right: (0) no drift 6a. Motor Leg Left: (3) no gravity effort 6b. Motor Leg Right: (0) no drift 7. Limb Ataxia: (1) present 1 limb 8. Sensory: (0) normal 9. Best Language: (1) mild/moderate aphasia 10. Dysarthria: (1) mild/moderate dysarthria 11. Extinction/Inattention: (0) no abnormality - Medical Decision Making 72 male to the ER for evaluation positive CVA. Patient is given TPA here in the ER feels improved be admitted to the ICU for further monitoring and evaluation - Radiology Data Radiology results: report reviewed, image reviewed - EKG Data -: EKG Interpreted by Me (EKG is sinus 75 GA 132 QRS 92 QTC 420) Past Medical History Past Medical History: Coronary Artery Disease (CAD), CVA/TIA, GERD/Reflux, Hyperlipidemia, Hypertension, Liver Disease, Myocardial Infarction (IA), Vascular Disorder Additional Past Medical History / Comment(s): Patient states he was admitted to the hospital January after a fall with head injury/new onset seizures and was hospitalized at [facility] in [place]. He was on life support and was extubated and had one more seizure. 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 Patient states he has Hepatitis C. Last Myocardial Infarction Date:: 2011 History of Any Multi-Drug Resistant Organisms: None Reported Past Surgical History: Heart Catheterization With Stent, Orthopedic Surgery Additional Past Surgical History / Comment(s): PCI with a total of 7 stents per pt, L caratid endartectomy, L shoulder surgery for injury, R knee/R hip/R elbow/R wrist ligament/tendon type surgeries injuries-has pins in hand, colonoscopy. Past Anesthesia/Blood Transfusion Reactions: No Reported Reaction Date of Last Stent Placement:: 2011 Past Psychological History: Anxiety Smoking Status: Current every day smoker Past Alcohol Use History: None Reported Past Drug Use History: Marijuana - Past Family History Father Family Medical History: CVA/TIA Additional Family Medical History / Comment(s): Father is from CVA. Pt states father from "stupidity." Mother Family Medical History: Diabetes Mellitus Additional Family Medical History / Comment(s): Mother from diabetes at the age of 52 yrs. Brother(s) Family Medical History: Diabetes Mellitus Additional Family Medical History / Comment(s): Brother at the age of 32 yrs from type 1 diabetes. Course Vital Signs 03/27/23 03/27/23 03/27/23 16:20 16:52 17:00 Temperature 98.0 F Pulse Rate 83 73 72 Respiratory 20 21 20 Rate Blood Pressure 147/71 119/72 116/69 O2 Sat by Pulse 99 98 98 Oximetry 03/27/23 03/27/23 03/27/23 17:15 17:30 17:44 Temperature Pulse Rate 70 62 58 L Respiratory 20 21 20 Rate Blood Pressure 119/78 110/67 96/66 O2 Sat by Pulse 98 98 98 Oximetry 03/27/23 03/27/23 03/27/23 17:45 17:59 18:00 Temperature Pulse Rate 55 L 60 76 Respiratory 17 16 17 Rate Blood Pressure 121/70 111/69 111/69 O2 Sat by Pulse 99 98 99 Oximetry 03/27/23 03/27/23 03/27/23 18:13 18:15 18:30 Temperature Pulse Rate 54 L 60 74 Respiratory 16 20 20 Rate Blood Pressure 108/66 108/66 119/71 O2 Sat by Pulse 99 99 99 Oximetry 03/27/23 03/27/23 03/27/23 18:49 19:00 19:14 Temperature Pulse Rate 71 69 80 Respiratory 20 18 18 Rate Blood Pressure 115/69 115/79 109/74 O2 Sat by Pulse 99 99 98 Oximetry 03/27/23 03/27/23 03/27/23 19:30 19:44 20:14 Temperature Pulse Rate 80 81 87 Respiratory 18 18 87 H Rate Blood Pressure 109/74 100/74 123/89 O2 Sat by Pulse 98 98 98 Oximetry 03/27/23 20:44 Temperature Pulse Rate 82 Respiratory 18 Rate Blood Pressure 119/74 O2 Sat by Pulse 98 Oximetry - Reevaluation(s) Reevaluation #1: 03/27/23 18:32 Medical record is reviewed 03/27/23 18:37 Code TPA is given on patient arrival Reevaluation #2: 03/27/23 18:37 Patient is given TPA here in the ER with improvement of symptoms Reevaluation #3: 03/27/23 18:39 Patient informed of results and questions answered Reevaluation #4: 03/27/23 18:39 Was pt. sent in by a medical professional or institution (JULIAN Vargas, OPERATIONS TECHNICIAN, urgent care, hospital, or long-term...) When possible be specific @ -no Did you speak to anyone other than the patient for history (EMS, parent, family, police, friend...)? What history was obtained from this source @ -no Did you review nursing and triage notes (agree or disagree)? Why? @ -agree Are old charts reviewed (outside hosp., previous admission, EMS record, old EKG, old radiological studies, urgent care reports/EKG's, long-term records)? Report findings @ -yes Differential Diagnosis (chest pain, altered mental status, abdominal pain women, abdominal pain men, vaginal bleeding, weakness, fever, dyspnea, syncope, headache, dizziness, GI bleed, back pain, seizure, CVA, palpatations, mental health, musculoskeletal)? @ -prior EKG interpreted by me (3pts min.). @ -yes X-rays interpreted by me (1pt min.). @ -yes CT interpreted by me (1pt min.). @ -yes U/S interpreted by me (1pt. min.). @ -no What testing was considered but not performed or refused? (CT, X-rays, U/S, labs)? Why? @ -none What meds were considered but not given or refused? Why? @ -none Did you discuss the management of the patient with other professionals (jose carlos degroot i.e. JULIAN Vargas, OPERATIONS TECHNICIAN, lab, RT, psych nurse, social insurance adviser, zoology technical officer, teacher, food safety officer, casework manager)? Give summary @ -no Was smoking cessation discussed for >3mins.? @ -no Was critical care preformed (if so, how long)? @ -yes31 Were there social determinants of health that impacted care today? How? (Homelessness, low income, unemployed, alcoholism, drug addiction, transportation, low edu. Level, literacy, decrease access to med. care, fci, rehab)? @ -none Was there de-escalation of care discussed even if they declined (Discuss DNR or withdrawal of care, Hospice)? DNR status @ -no What co-morbidities impacted this encounter? (DM, HTN, Smoking, COPD, CAD, Cancer, CVA, ARF, Chemo, Hep., AIDS, mental health diagnosis, sleep apnea, morbid obesity)? @ -none Was patient admitted / discharged? Hospital course, mention meds given and route, prescriptions, significant lab abnormalities, going to OR and other pertinent info. @ - 72 male to the ER for evaluation positive CVA. Patient is given TPA here in the ER feels improved be admitted to the ICU for further monitoring and eval uation Admitted Undiagnosed new problem with uncertain prognosis? @ -no Drug Therapy requiring intensive monitoring for toxicity (Heparin, Nitro, Insulin, Cardizem)? @ -no Were any procedures done? @ -no Diagnosis/symptom? @ -CVA with TPA Acute, or Chronic, or Acute on Chronic? @ -Acute Uncomplicated (without systemic symptoms) or Complicated (systemic symptoms)? @ -Complicated Side effects of treatment? @ -no Exacerbation, Progression, or Severe Exacerbation? @ -exacerbation Poses a threat to life or bodily function? How? (Chest pain, USA, IA, pneumonia, PE, COPD, DKA, ARF, appy, cholecystitis, CVA, Diverticulitis, Homicidal, Suicidal, threat to staff... and all critical care pts) @ -yes Reevaluation #5: 03/27/23 18:39 Differential CVA Ischemic stroke, hemorrhagic stroke, brain tumor, atypical migraine, Wernicke's encephalopathy, seizure, multiple sclerosis, meningitis, encephalitis, hypoglycemia, Guillain-Medellin, electrolytes disturbance, myasthenia gravis.... This is not meant to be an all-inclusive list - Consultations Consultation #1: Spoke with neuro interventional, no contraindications to TPA TPA will be given Consultation #2: Spoke with ICU who accepts patient for admission Consultation #3: Spoke with Dr. El who accepts patient for admission Critical Care Time Critical Care Time: Yes Total Critical Care Time: 31 Disposition Clinical Impression: Cerebrovascular accident (CVA) Disposition: ADMITTED IP TO THIS HOSP Condition: Serious Is patient prescribed a controlled substance at d/c from ED?: No Time of Disposition: 18:40
[2023-03-27 16:42] LABS: Glucose,Whole Blood 118 mg/dL (70-110)
--- NOTE | 2023-03-27 16:55 | CT ---
EXAMINATION TYPE: CT brain wo con DATE OF EXAM: 03/27/2023 COMPARISON: 03/22/2023 INDICATION: Code Alteplase neuro deficit. DLP: 1163.6 mGycm, Automated exposure control for dose reduction was used. CONTRAST: None CT of the brain is performed utilizing 3 mm thick sections through the posterior fossa and 3 mm thick sections through the remaining calvarium. Study is performed within 24 hours of arrival to the hosp ital. No abnormal hyperdensity is present to suggest an acute intracranial hemorrhage. No mass lesion is evident. No acute infarcts are evident. There is mild. Ventricular white matter hypodensity, likely on the bas is of chronic white matter ischemic changes. Findings appear stable over the interval. Small old lacu arturo infarct may be in the lateral left basal ganglion. Small lacunar infarct also in the right caudat e head. Ventricles and sulci are prominent for the patient age. Paranasal sinuses and mastoid air cells within the [id number] are clear. IMPRESSION: 1. Atrophy with chronic appearing Periventricular white matter ischemic changes, stable from compar [place] 2. No acute intracranial process. Follow-up MRI can be performed as clinically indicated.
[2023-03-27 17:13] LABS: Basophils % (A) 0 %; Eosinophils # (A) 0.1 k/uL (0-0.7); Eosinophils % (A) 1 %; HCT 43.2 % (39.0-53.0); HGB 13.9 gm/dL (13.0-17.5); Lymphocytes # (A) 1.6 k/uL (1.0-4.8); Lymphocytes % (A) 16 %; MCH 30.7 pg (25.0-35.0); MCHC 32.1 g/dL (31.0-37.0); MCV 95.5 fL (80.0-100.0); Mean Platelet Volume 8.6; Monocytes # (A) 0.5 k/uL (0-1.0); Monocytes % (A) 5 %; Neutrophils # (A) 7.8 k/uL (1.3-7.7); Neutrophils % (A) 77 %; Platelet Count 257 k/uL (150-450); RBC 4.52 m/uL (4.30-5.90); RDW 14.2 % (11.5-15.5); WBC 10.1 k/uL (3.8-10.6)
[2023-03-27 17:21] LABS: INR 0.9 (<1.2); Partial Thromboplastin Time 24.2 sec (22.0-30.0); Prothrombin Time 9.4 sec (9.0-12.0)
[2023-03-27] MEDS ORDERED: SODIUM CHLORIDE 0.9% 50 ML MINI-BAG IV ONE ×2 (17:31→19:28)
[2023-03-27 17:50] LABS: ALT 22 U/L (4-49); AST 21 U/L (17-59); African American GFR (CKD) 82 (>60 ml/min/1.73 sqM); Albumin 4.4 g/dL (3.5-5.0); Alkaline Phosphatase 110 U/L (38-126); Anion Gap 9 mmol/L; Blood Urea Nitrogen 16 mg/dL (9-20); Calcium 9.6 mg/dL (8.4-10.2); Carbon Dioxide 19 mmol/L (22-30); Chloride 109 mmol/L (98-107); Creatine Kinase 65 U/L (55-170); Glucose 120 mg/dL (74-99); Non-African American GFR(CKD) 71 (>60 ml/min/1.73 sqM); Potassium 4.8 mmol/L (3.5-5.1); Sodium 137 mmol/L (137-145); Total Bilirubin 0.5 mg/dL (0.2-1.3); Total Protein 7.4 g/dL (6.3-8.2)
[2023-03-27] MEDS ORDERED: MORPHINE SULFATE 4 MG/ML SYRINGE IVP STA (18:03)
--- NOTE | 2023-03-27 18:21 | XR ---
EXAMINATION TYPE: XR chest 1V portable DATE OF EXAM: 03/27/2023 COMPARISON: 03/22/2023 INDICATION: Altered mental status TECHNIQUE: Single frontal view of the chest is obtained. FINDINGS: The heart size is normal. The pulmonary vasculature is normal. The lungs are clear. IMPRESSION: 1. No acute pulmonary process. Follow-up can be performed as clinically indicated
--- NOTE | 2023-03-27 18:56 | CT ---
EXAMINATION TYPE: CT angio head neck DATE OF EXAM: 03/27/2023 HISTORY: Code Alteplase neuro deficit. COMPARISON: CT DLP: 829.6 mGycm. Automated Exposure Control for Dose Reduction was Utilized. TECHNIQUE: CTA scan of the neck is performed with IV Contrast, patient injected with 65 ml mL of Iso pato 370, axial images are obtained, coronal and sagittal reformatted images are reviewed. Three-D rec onstructed images are created on an independent workstation and reviewed. Source images are reviewed . FINDINGS: Carotid/Vascular Structures: There is a common origin of the left common carotid artery from the inno minate. Common carotid arteries bifurcate into internal and external carotid arteries without significant gracie w limiting stenosis. There is approximately 46% narrowing at the right proximal internal carotid vanessa ry. There is 41% narrowing of the proximal left internal carotid artery. Vertebral arteries are codominant. Internal carotid arteries and vertebral arteries are patent to the skull base. Cervical of [place]: Vertebral basilar system appears normal. Posterior cerebral vasculature is unrema rkable. Internal carotid arteries bifurcate normally into A1 and M1 segments. A2 segments are normal. The anterior communicating artery is not well visualized. The right posterior communicating artery is patent. The left posterior communicating artery is patent. IMPRESSION: 1. Mild narrowing without significant flow-limiting stenosis bilateral internal carotid artery origin s. 2. Normal [place] NASCET criteria was used in interpretation of this exam?
[2023-03-27] MEDS: SODIUM CHLORIDE 0.9% 1,000 ML IV SCH (20:30)
[2023-03-27 21:03] LABS: Glucose,Whole Blood 108 mg/dL (70-110)
[2023-03-27] MEDS ORDERED: NALOXONE 0.4 MG/ML 1 ML VIAL IV PRN (21:37)
[2023-03-27 22:17] LABS: Basophils % (A) 0 %; Eosinophils # (A) 0.2 k/uL (0-0.7); Eosinophils % (A) 1 %; HCT 50.3 % (39.0-53.0); HGB 15.9 gm/dL (13.0-17.5); Lymphocytes # (A) 2.2 k/uL (1.0-4.8); Lymphocytes % (A) 15 %; MCH 30.4 pg (25.0-35.0); MCHC 31.7 g/dL (31.0-37.0); MCV 95.9 fL (80.0-100.0); Mean Platelet Volume 8.5; Monocytes # (A) 0.7 k/uL (0-1.0); Monocytes % (A) 5 %; Neutrophils # (A) 11.1 k/uL (1.3-7.7); Neutrophils % (A) 77 %; Platelet Count 257 k/uL (150-450); RBC 5.25 m/uL (4.30-5.90); RDW 14.1 % (11.5-15.5); WBC 14.4 k/uL (3.8-10.6)
[2023-03-27 22:20] LABS: African American GFR (CKD) 83 (>60 ml/min/1.73 sqM); Anion Gap 8 mmol/L; Blood Urea Nitrogen 17 mg/dL (9-20); Calcium 9.2 mg/dL (8.4-10.2); Carbon Dioxide 19 mmol/L (22-30); Chloride 110 mmol/L (98-107); Glucose 103 mg/dL (74-99); Non-African American GFR(CKD) 72 (>60 ml/min/1.73 sqM); Potassium 4.6 mmol/L (3.5-5.1); Sodium 137 mmol/L (137-145)
[2023-03-28] MEDS: SODIUM CHLORIDE 0.9% 1,000 ML IV SCH ×2 (05:59→15:36)
[2023-03-28 06:19] LABS: Basophils % (A) 0 %; Eosinophils # (A) 0.2 k/uL (0-0.7); Eosinophils % (A) 2 %; HCT 44.9 % (39.0-53.0); HGB 14.1 gm/dL (13.0-17.5); Lymphocytes # (A) 2.5 k/uL (1.0-4.8); Lymphocytes % (A) 21 %; MCHC 31.5 g/dL (31.0-37.0); Mean Platelet Volume 8.1; Monocytes # (A) 0.8 k/uL (0-1.0); Monocytes % (A) 7 %; Neutrophils # (A) 8.2 k/uL (1.3-7.7); Neutrophils % (A) 69 %; Platelet Count 238 k/uL (150-450); RBC 4.72 m/uL (4.30-5.90); RDW 14.3 % (11.5-15.5); WBC 11.9 k/uL (3.8-10.6)
[2023-03-28 06:41] LABS: African American GFR (CKD) 87 (>60 ml/min/1.73 sqM); Anion Gap 5 mmol/L; Blood Urea Nitrogen 15 mg/dL (9-20); Calcium 8.7 mg/dL (8.4-10.2); Carbon Dioxide 21 mmol/L (22-30); Chloride 112 mmol/L (98-107); Glucose 95 mg/dL (74-99); Non-African American GFR(CKD) 75 (>60 ml/min/1.73 sqM); Potassium 3.7 mmol/L (3.5-5.1); Sodium 138 mmol/L (137-145)
[2023-03-28] MEDS ORDERED: Potassium Replacement Protocol 1 EACH MISC MISCELLANE PRN (08:08)
[2023-03-28] MEDS ORDERED: POTASSIUM CHLORIDE ER 20 MEQ TAB.ER PO SCH (09:00)
[2023-03-28] MEDS: oxyCODONE-APAP 10-325MG 1 EACH TAB PO PRN ×3 (09:15→21:36)
[2023-03-28] MEDS ORDERED: ATORVASTATIN 20 MG TAB PO SCH (09:30)
[2023-03-28] MEDS ORDERED: PANTOPRAZOLE SODIUM 40 MG GRANULE PKT PO SCH (09:45)
--- NOTE | 2023-03-28 10:31 | P.CNPUL ---
History of Present Illness Consult date: 03/28/23 Requesting physician: Stephane El Reason for consult: other Chief complaint: CVA. History of present illness: Pulmonary consult dated 03/28/2023. 73-year-old male who was seen in the emergency department, on March 27, for possible CVA. He apparently came in with left arm and left leg numbness, and facial droop. His initial NIH score was 12. The patient had a computed tomography scan of the brain, and there was no bleeding, and hence, he received TPA. Currently, he is resting comfortably in the intensive care unit. He seen in room 254. The patient is doing much better, and is almost completely back to normal. He's currently on room air. He is getting saline at 100 mL an hour. Unfortunately, the patient does continue to smoke cigarettes. He has a history of coronary artery disease, with stenting 7, hypertension, hyperlipidemia, and gastroesophageal reflux disease. The patient apparently is also had a myocardial infarction in the past. The patient has been smoking for many years. White count 11.9, with a normal hemoglobin, hematocrit, and platelet count. Sodium 138, potassium 3.7, chlorides 112, CO2 21, BUN 15, and creatinine 1.0. Brain CT showed atrophy with chronic appearing periventricular white matter ischemic changes, which is stable. No acute intracranial process noted. Chest x-ray was normal. Angiography CT, showed mild narrowing, without significant flow limiting stenosis. Review of Systems REVIEW OF SYSTEMS: CONSTITUTIONAL: [Negative.] NEUROLOGIC: Left arm and left leg weakness, numbness, and facial droop. HEENT: [ Negative.] CARDIAC: [Negative.] PULMONARY: [Negative.] GI: [Negative.] : [Negative.] RHEUMATOLOGIC: [ Negative.] IMMUNOLOGIC: [ Negative.] ENDOCRINE: [Negative. ] DERMATOLOGIC: [Negative.] Past Medical History Past Medical History: Coronary Artery Disease (CAD), CVA/TIA, GERD/Reflux, Hyperlipidemia, Hypertension, Liver Disease, Myocardial Infarction (ME), Vascular Disorder Additional Past Medical History / Comment(s): Patient states he was admitted to the hospital January after a fall with head injury/new onset seizures and was hospitalized at [facility] in [place]. He was on life support and was extubated and had one more seizure. 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 Patient states he has Hepatitis C. Last Myocardial Infarction Date:: 2011 History of Any Multi-Drug Resistant Organisms: None Reported Past Surgical History: Heart Catheterization With Stent, Orthopedic Surgery Additional Past Surgical History / Comment(s): PCI with a total of 7 stents per pt, L caratid endartectomy, L shoulder surgery for injury, R knee/R hip/R elbow/R wrist ligament/tendon type surgeries injuries-has pins in hand, colonoscopy. Past Anesthesia/Blood Transfusion Reactions: No Reported Reaction Date of Last Stent Placement:: 2011 Past Psychological History: Anxiety Smoking Status: Current every day smoker Past Alcohol Use History: None Reported Past Drug Use History: Marijuana - Past Family History Father Family Medical History: CVA/TIA Additional Family Medical History / Comment(s): Father is from CVA. Pt states father from "stupidity." Mother Family Medical History: Diabetes Mellitus Additional Family Medical History / Comment(s): Mother from diabetes at the age of 52 yrs. Brother(s) Family Medical History: Diabetes Mellitus Additional Family Medical History / Comment(s): Brother at the age of 32 yrs from type 1 diabetes. Medications and Allergies Home Medications Medication Instructions Recorded Confirmed Type Isosorbide Mononitrate ER [Imdur] 30 mg PO DAILY 09/07/17 03/27/23 History lisinopriL [Zestril] 10 mg PO DAILY 09/07/17 03/27/23 History Aspirin 81 mg PO DAILY #1 chewable 02/27/19 03/27/23 Rx Donepezil [Aricept] 10 mg PO HS 04/11/19 03/27/23 History Temazepam [Restoril] 30 mg PO HS 04/11/19 03/27/23 History amLODIPine [Norvasc] 5 mg PO DAILY 04/11/19 03/27/23 History Atorvastatin [Lipitor] 40 mg PO DAILY 03/22/23 03/27/23 History Citalopram Hydrobromide [CeleXA] 20 mg PO DAILY 03/22/23 03/27/23 History Clopidogrel [Plavix] 75 mg PO DAILY 03/22/23 03/27/23 History Cyclobenzaprine [Flexeril] 10 mg PO BID PRN 03/22/23 03/27/23 History LORazepam [Ativan] 1 mg PO TID 03/22/23 03/27/23 History Olopatadine HCl [Patanol 0.1%] 1 drop BOTH EYES TID 03/22/23 03/27/23 History Pantoprazole Sodium [Protonix] 20 mg PO BID 03/22/23 03/27/23 History oxyCODONE-APAP 10-325MG [Percocet 1 tab PO QID 03/22/23 03/27/23 History 10-325 mg] Allergies Allergy/AdvReac Type Severity Reaction Status Date / Time alprazolam [From Xanax] Allergy Unknown Verified 03/27/23 16:23 codeine Allergy Rash/Hives Verified 03/27/23 16:23 zolpidem [From Ambien] AdvReac "salty" Verified 03/27/23 16:23 taste in mouth, numb mouth Physical Exam Osteopathic Statement: *. No significant issues noted on an osteopathic structural exam other than those noted in the History and Physical/Consult. Vitals: Vital Signs Temp Pulse Resp BP Pulse Ox 03/28/23 10:00 89 16 131/70 95 03/28/23 09:45 87 12 131/70 94 L 03/28/23 09:30 98.0 F 79 17 131/70 94 L 03/28/23 09:15 80 23 131/70 94 L 03/28/23 09:00 83 23 120/102 94 L 03/28/23 08:45 77 24 120/102 95 03/28/23 08:30 7 L 120/102 92 L 03/28/23 08:15 84 12 120/102 95 03/28/23 08:00 80 19 115/62 98 03/28/23 07:58 94 L 03/28/23 07:55 75 18 115/62 95 03/28/23 07:45 79 13 115/62 96 03/28/23 07:30 76 8 L 115/62 95 03/28/23 07:15 27 H 115/62 92 L 03/28/23 07:00 77 18 124/91 93 L 03/28/23 06:45 66 20 124/91 94 L 03/28/23 06:30 73 19 95 03/28/23 06:15 73 21 95 03/28/23 06:00 73 16 125/65 95 03/28/23 05:45 76 20 93 L 03/28/23 05:30 80 17 91 L 03/28/23 05:15 76 13 125/65 92 L 03/28/23 05:00 79 19 92 L 03/28/23 04:45 89 15 95 03/28/23 04:30 73 16 120/70 95 03/28/23 04:15 80 18 120/70 92 L 03/28/23 04:00 97.5 F L 84 17 93 L 03/28/23 03:45 80 18 123/73 93 L 03/28/23 03:30 17 123/73 95 03/28/23 03:15 74 11 L 123/73 96 03/28/23 03:00 73 19 115/78 95 03/28/23 02:45 85 8 L 96 03/28/23 02:30 71 12 95 03/28/23 02:15 79 32 H 115/78 94 L 03/28/23 02:00 72 17 110/67 03/28/23 01:45 73 13 95 03/28/23 01:30 79 10 L 94 L 03/28/23 01:15 69 10 L 110/67 94 L 03/28/23 01:00 68 14 107/67 95 03/28/23 00:45 80 18 120/106 95 03/28/23 00:30 66 21 106/73 93 L 03/28/23 00:15 73 20 110/76 93 L 03/28/23 00:00 97.6 F 71 18 109/68 95 03/27/23 23:45 73 18 109/68 96 03/27/23 23:42 72 23 109/68 94 L 03/27/23 23:30 80 28 H 115/71 96 03/27/23 23:15 73 19 110/96 95 03/27/23 23:00 79 19 114/79 95 03/27/23 22:45 70 17 114/79 97 03/27/23 22:30 79 22 102/78 95 03/27/23 22:15 70 21 101/79 95 03/27/23 22:00 78 12 103/70 94 L 03/27/23 21:45 80 10 L 103/70 96 03/27/23 21:30 82 26 H 96/74 95 03/27/23 20:44 82 18 119/74 98 03/27/23 20:14 87 87 H 123/89 98 03/27/23 19:44 81 18 100/74 98 03/27/23 19:30 80 18 109/74 98 03/27/23 19:14 80 18 109/74 98 03/27/23 19:00 69 18 115/79 99 03/27/23 18:49 71 20 115/69 99 03/27/23 18:30 74 20 119/71 99 03/27/23 18:15 60 20 108/66 99 03/27/23 18:13 54 L 16 108/66 99 03/27/23 18:00 76 17 111/69 99 03/27/23 17:59 60 16 111/69 98 03/27/23 17:45 55 L 17 121/70 99 03/27/23 17:44 58 L 20 96/66 98 03/27/23 17:30 62 21 110/67 98 03/27/23 17:15 70 20 119/78 98 03/27/23 17:00 72 20 116/69 98 03/27/23 16:52 73 21 119/72 98 03/27/23 16:20 98.0 F 83 20 147/71 99 Intake and Output 03/27/23 03/28/23 03/28/23 22:59 06:59 14:59 Intake Total 100 900 420 Output Total 350 670 125 Balance -250 230 295 Intake: IV 100 900 300 Sodium Chloride 0.9% 1, 100 900 300 000 ml @ 100 mls/hr IV . Q10H [facility] Rx#:[id number] Oral 120 Output: Urine 350 670 125 Other: Voiding Method Urinal Urinal Weight 86.183 kg 100 kg No acute distress, oriented 3. HEENT examination is grossly unremarkable. Mucous membranes are moist. No oral lesions. Neck supple. Full range of motion. No adenopathy thyromegaly or neck vein distention. Cardiovascular examination reveals regular rhythm rate. S1-S2 normal. No S3 or S4. No discernible murmur noted. Heart rate 89 bpm. Lungs reveal clear breath sounds. Breath sounds are equal bilaterally. No adve ntitious lung sounds including wheezes rhonchi or crackles. Room air saturation 95%. Abdomen soft bowel sounds are heard. No masses or tenderness. Extremities are intact. No cyanosis clubbing or edema. Skin is without rash or lesion. Neurologic examination is brief but nonfocal. Results - Laboratory Findings CBC and BMP: 03/28/23 05:50 03/28/23 05:50 PT/INR, D-dimer PT 9.4 sec (9.0-12.0) 03/27/23 16:34 INR 0.9 (<1.2) 03/27/23 16:34 Abnormal lab findings: Abnormal Labs 03/27/23 03/27/23 03/27/23 16:30 16:34 16:34 WBC Neutrophils # 7.8 H Chloride 109 H Carbon Dioxide 19 L Glucose 120 H POC Glucose (mg/dL) 118 H 03/27/23 03/27/23 03/28/23 21:56 21:56 05:50 WBC 14.4 H 11.9 H Neutrophils # 11.1 H 8.2 H Chloride 110 H Carbon Dioxide 19 L Glucose 103 H POC Glucose (mg/dL) 03/28/23 05:50 WBC Neutrophils # Chloride 112 H Carbon Dioxide 21 L Glucose POC Glucose (mg/dL) - Diagnostic Findings Chest x-ray: image reviewed Assessment and Plan Assessment: Acute right-sided CVA, with left-sided weakness, and left facial droop, S/P TPA, with near-complete resolution of the patient's symptoms. CAD, with multiple previous stents. Hypertension. Hyperlipidemia. Previous myocardial infarction. Ongoing tobacco use with nicotine addiction. Gastroesophageal reflux disease. Plan: Plan dated 03/28/2023. The patient was getting an echocardiogram this morning. He is currently on room air. Saline is running at 100 mL an hour. His initial NIH score was 12. His symptoms have almost completely resolved. The patient's doing very well, and we will continue to follow make recommendations along the way. The patient may have some underlying COPD. He is counseled about the importance of smoking cessation. Time with Patient: Greater than 30
--- NOTE | 2023-03-28 12:22 | P.CNNES ---
History of Present Illness Consult date: 03/28/23 Reason for Consult: CVA, status post TPA History of Present Illness: The pt is a 72 y/o male who is seen in neurologic consultation on 2022, in collaboration with Colette Light, via teleneurology. The pt reports that he was with a friend yesterday, when he had sudden onset of vision "jumped forward then backward" and his left side became weak. He also reports slurring of his speech. The pt was reportedly unable to move his left side. In the ER, the pts's NIHSS was 12. CT scan of the brain revealed no signs of acute infarct or hemorrage. There is evidence of old lacunar infarcts. The pt was deemed to be a candidate for TPA. The pt states that his symptoms began to improve after he received the TPA. In total, his symptoms were present for about 4 hrs. At the time of this evaluation, the pt does report loss of vision from his left eye. The pt takes ASA and Plavix, at home, for cardiac disease. He denies missing an y doses. CT scan of the brain and CTA of the head and neck were essentially negative. Review of Systems Constitutional: Reports chronic pain (chronic back pain secondary to fall and fracture, 3 yrs ago) Past Medical History Past Medical History: Coronary Artery Disease (CAD), CVA/TIA, GERD/Reflux, Hyperlipidemia, Hypertension, Liver Disease, Myocardial Infarction (AR), Vascular Disorder Additional Past Medical History / Comment(s): Patient states he was admitted to the hospital January after a fall with head injury/new onset seizures and was hospitalized at [facility] in [place]. He was on life support and was extubated and had one more seizure. 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 Patient states he has Hepatitis C. Last Myocardial Infarction Date:: 2011 History of Any Multi-Drug Resistant Organisms: None Reported Past Surgical History: Heart Catheterization With Stent, Orthopedic Surgery Additional Past Surgical History / Comment(s): PCI with a total of 7 stents per pt, L caratid endartectomy, L shoulder surgery for injury, R knee/R hip/R elbow/R wrist ligament/tendon type surgeries injuries-has pins in hand, colonoscopy. Past Anesthesia/Blood Transfusion Reactions: No Reported Reaction Date of Last Stent Placement:: 2011 Past Psychological History: Anxiety Smoking Status: Current every day smoker Past Alcohol Use History: None Reported Past Drug Use History: Marijuana - Past Family History Father Family Medical History: CVA/TIA Additional Family Medical History / Comment(s): Father is from CVA. Pt states father from "stupidity." Mother Family Medical History: Diabetes Mellitus Additional Family Medical History / Comment(s): Mother from diabetes at the age of 52 yrs. Brother(s) Family Medical History: Diabetes Mellitus Additional Family Medical History / Comment(s): Brother at the age of 32 yrs from type 1 diabetes. Medications and Allergies Home Medications Medication Instructions Recorded Confirmed Type Isosorbide Mononitrate ER [Imdur] 30 mg PO DAILY 09/07/17 03/27/23 History lisinopriL [Zestril] 10 mg PO DAILY 09/07/17 03/27/23 History Aspirin 81 mg PO DAILY #1 chewable 02/27/19 03/27/23 Rx Donepezil [Aricept] 10 mg PO HS 04/11/19 03/27/23 History Temazepam [Restoril] 30 mg PO HS 04/11/19 03/27/23 History amLODIPine [Norvasc] 5 mg PO DAILY 04/11/19 03/27/23 History Atorvastatin [Lipitor] 40 mg PO DAILY 03/22/23 03/27/23 History Citalopram Hydrobromide [CeleXA] 20 mg PO DAILY 03/22/23 03/27/23 History Clopidogrel [Plavix] 75 mg PO DAILY 03/22/23 03/27/23 History Cyclobenzaprine [Flexeril] 10 mg PO BID PRN 03/22/23 03/27/23 History LORazepam [Ativan] 1 mg PO TID 03/22/23 03/27/23 History Olopatadine HCl [Patanol 0.1%] 1 drop BOTH EYES TID 03/22/23 03/27/23 History Pantoprazole Sodium [Protonix] 20 mg PO BID 03/22/23 03/27/23 History oxyCODONE-APAP 10-325MG [Percocet 1 tab PO QID 03/22/23 03/27/23 History 10-325 mg] Allergies Allergy/AdvReac Type Severity Reaction Status Date / Time alprazolam [From Xanax] Allergy Unknown Verified 03/27/23 16:23 codeine Allergy Rash/Hives Verified 03/27/23 16:23 zolpidem [From Ambien] AdvReac "salty" Verified 03/27/23 16:23 taste in mouth, numb mouth Physical Examination - Vital Signs Vital Signs: Vital Signs Temp Pulse Resp BP Pulse Ox 03/28/23 11:15 75 17 116/62 93 L 03/28/23 11:00 71 19 126/60 93 L 03/28/23 10:45 87 19 126/60 91 L 03/28/23 10:30 79 19 126/60 92 L 03/28/23 10:15 87 14 126/60 93 L 03/28/23 10:00 89 16 131/70 95 03/28/23 09:45 87 12 131/70 94 L 03/28/23 09:30 98.0 F 79 17 131/70 94 L 03/28/23 09:15 80 23 131/70 94 L 03/28/23 09:00 83 23 120/102 94 L 03/28/23 08:45 77 24 120/102 95 03/28/23 08:30 7 L 120/102 92 L 03/28/23 08:15 84 12 120/102 95 03/28/23 08:00 80 19 115/62 98 03/28/23 07:58 94 L 03/28/23 07:55 75 18 115/62 95 03/28/23 07:45 79 13 115/62 96 03/28/23 07:30 76 8 L 115/62 95 03/28/23 07:15 27 H 115/62 92 L 03/28/23 07:00 77 18 124/91 93 L 03/28/23 06:45 66 20 124/91 94 L 03/28/23 06:30 73 19 95 03/28/23 06:15 73 21 95 03/28/23 06:00 73 16 125/65 95 03/28/23 05:45 76 20 93 L 03/28/23 05:30 80 17 91 L 03/28/23 05:15 76 13 125/65 92 L 03/28/23 05:00 79 19 92 L 03/28/23 04:45 89 15 95 03/28/23 04:30 73 16 120/70 95 03/28/23 04:15 80 18 120/70 92 L 03/28/23 04:00 97.5 F L 84 17 93 L 03/28/23 03:45 80 18 123/73 93 L 03/28/23 03:30 17 123/73 95 03/28/23 03:15 74 11 L 123/73 96 03/28/23 03:00 73 19 115/78 95 03/28/23 02:45 85 8 L 96 03/28/23 02:30 71 12 95 03/28/23 02:15 79 32 H 115/78 94 L 03/28/23 02:00 72 17 110/67 03/28/23 01:45 73 13 95 03/28/23 01:30 79 10 L 94 L 03/28/23 01:15 69 10 L 110/67 94 L 03/28/23 01:00 68 14 107/67 95 03/28/23 00:45 80 18 120/106 95 03/28/23 00:30 66 21 106/73 93 L 03/28/23 00:15 73 20 110/76 93 L 03/28/23 00:00 97.6 F 71 18 109/68 95 03/27/23 23:45 73 18 109/68 96 03/27/23 23:42 72 23 109/68 94 L 03/27/23 23:30 80 28 H 115/71 96 03/27/23 23:15 73 19 110/96 95 03/27/23 23:00 79 19 114/79 95 03/27/23 22:45 70 17 114/79 97 03/27/23 22:30 79 22 102/78 95 03/27/23 22:15 70 21 101/79 95 03/27/23 22:00 78 12 103/70 94 L 03/27/23 21:45 80 10 L 103/70 96 03/27/23 21:30 82 26 H 96/74 95 03/27/23 20:44 82 18 119/74 98 03/27/23 20:14 87 87 H 123/89 98 03/27/23 19:44 81 18 100/74 98 03/27/23 19:30 80 18 109/74 98 03/27/23 19:14 80 18 109/74 98 03/27/23 19:00 69 18 115/79 99 03/27/23 18:49 71 20 115/69 99 03/27/23 18:30 74 20 119/71 99 03/27/23 18:15 60 20 108/66 99 03/27/23 18:13 54 L 16 108/66 99 03/27/23 18:00 76 17 111/69 99 03/27/23 17:59 60 16 111/69 98 03/27/23 17:45 55 L 17 121/70 99 03/27/23 17:44 58 L 20 96/66 98 03/27/23 17:30 62 21 110/67 98 03/27/23 17:15 70 20 119/78 98 03/27/23 17:00 72 20 116/69 98 03/27/23 16:52 73 21 119/72 98 03/27/23 16:20 98.0 F 83 20 147/71 99 Intake and Output 03/27/23 03/28/23 03/28/23 22:59 06:59 14:59 Intake Total 100 900 520 Output Total 350 670 125 Balance -250 230 395 Intake: IV 100 900 400 Sodium Chloride 0.9% 1, 100 900 400 000 ml @ 100 mls/hr IV . Q10H [facility] Rx#:[id number] Oral 120 Output: Urine 350 670 125 Other: Voiding Method Urinal Urinal Weight 86.183 kg 100 kg General: The pt is reclining in the bed. He is well nourished and in no acute distress HEENT: Head is atraumatic, normocephalic Neck: Supple without bruits Heart: Regular rate and rhythm without murmur Lungs: No shortness of breath or cough Extremites: Without edema Neurologic Examination Mental status: The pt is awake, alert and oriented x3. Speech is clear. There is no anomia or dysarthria. The pt is able to repeat phrases Cranial Nerves: Pupils are equal at 4 mm and reactive. Visual stevens are diminished to the left. Extraocular muscle intact. Facial sensation is diminished in the left V2 distribution. No facial asymmetry. Hearing is grossly intact. Uvula and palate are midline. Shoulder strug is symmetric. Tongue protrudes midline. Motor: Strength (right/left): indexer 4/3. Triceps 4/3. Biceps 4/3. Hip flexors 5/3. Ankle plantar flexors 5/3. Ankle dorsiflexors 5/3. Sensation: Pt reports decreased light touch sensation of left upper and lower extremities Coordination: Finger to nose testing is intact. There is slowing of left side LEEROY Deep tendon reflexes: 2+/4+ in the bilateral uppers and right knee. Left patellar reflex 1+/4+. Plantar responses are downgoing Gait: Not assessed at this time Results - Laboratory Findings CBC and BMP: 03/28/23 05:50 03/28/23 05:50 Abnormal Lab Findings: Abnormal Labs 03/27/23 03/27/23 03/27/23 16:30 16:34 16:34 WBC Neutrophils # 7.8 H Chloride 109 H Carbon Dioxide 19 L Glucose 120 H POC Glucose (mg/dL) 118 H 03/27/23 03/27/23 03/28/23 21:56 21:56 05:50 WBC 14.4 H 11.9 H Neutrophils # 11.1 H 8.2 H Chloride 110 H Carbon Dioxide 19 L Glucose 103 H POC Glucose (mg/dL) 03/28/23 05:50 WBC Neutrophils # Chloride 112 H Carbon Dioxide 21 L Glucose POC Glucose (mg/dL) - Diagnostic Findings Comments: CT brain images are personally reviewed Assessment and Plan Assessment: 1. The pt has an abnormal neurological exam, with left sided weakness and numbness-probable right MCA territory ischemic infarct 2. CVA risk factors include previous TIA/CVA, cardiac disease, HTN, hyperlipidemia 3. Tobacco use Plan: 1. Stroke order set: PT, OT, ST, lipid panel, HgA1C, TSH, 2D echocardiogram 2. Permissive hypertension for the 1st 24 hrs 3. Restart antiplatelets in 24 following TPA, if there is no evidence of bleed on repeat HCT. May change Plavix to Brilinta 4. MRI brain 5. Heart healthy diet 6. Smoking cessaton Time with Patient: Greater than 30 (spent 45 minutes caring for pt today, including obtaining a history, examining the pt, reviewing imaging, labs, chart documentation, placing orders and creating this note.)
[2023-03-28 13:09] LABS: Chol/HDL Ratio 3.78 Ratio; LDL Cholesterol,Calculated 75.3 mg/dL (0.0-131.0)
--- NOTE | 2023-03-28 16:35 | P.HPIM ---
History of Present Illness H&P Date: 03/28/23 Chief Complaint: Left-sided weakness This is a 72-year-old patient who follows with Dr. Felix. History of cardiac arrest. Tonic-clonic seizure. medical conditions include coronary artery disease with stent, GERD, hyperlipidemia, essential hypertension primary osteoarthritis. History of head injury. Hepatitis C. Arthritis. Patient yesterday sent down to eat pizza. Suddenly felt his vision was narrowed. Started feeling off. Left arm became weak. Speech became slurred. He was brought into the ER. In the ER there was left-sided weakness. Facial droop. Given TPA. He was admitted to the ICU and it was improvement in his neurological status. Today feels better. Speech is improved. Significant improvement of the left side. Able to eat his lunch. Seen by neurology. Patient does get charley horses on walking. Sometimes numbness in his feet. Has decreased vision in the left side of the visual field. Review of systems: GEN.: Tired EYES: As above HEENT: None NECK: None RESPIRATORY: Occasional wheezing CARDIOVASCULAR: None GASTROINTESTINAL: None GENITOURINARY: None MUSCULOSKELETAL: Pain in the joints LYMPHATICS: None HEMATOLOGICAL: None PSYCHIATRY: None NEUROLOGICAL: As above Past medical history to include: Concussion, possible tonic-clonic seizure, coronary artery disease with stent, GERD, hyperlipidemia, essential hypertension, primary osteoarthritis, nicotine dependence.. Social history: Lives alone. Smokes a pack a day-several years. Denies alcohol. Physical examination: VITAL SIGNS: 96.9, 89, 20, 147/71, 99% room air GENERAL: BMI 33.5, laying in bed awake not in distress EYES: Pupils equal. Conjunctiva normal. HEENT: External appearance of nose and ears normal, oral cavity grossly normal. NECK: JVD not raised; masses not palpable. HEART: First and second heart sounds are normal; no edema. Decreased dorsalis pedis. LUNGS: Respiratory rate normal; decreased breath sounds. ABDOMEN: Soft, nontender, liver spleen not palpable, no masses palpable. PSYCH: Alert and oriented x3; mood and affect anxious. NEUROLOGICAL: Mouth slightly pulled over to the left, left arm power 4/5. Abnormal sensation left side of the face. Speech normal. MUSCULAR skeletal: Evidence of OA. LYMPHATICS: No lymph nodes palpable in the axilla and neck INVESTIGATIONS, reviewed in the clinical context: March 28: White count 11.9 hemoglobin 14.1 platelets 238 sodium 138 potassium 3.7 BUN 15 creatinine 1.0 LDL 75 EKG tracing personally reviewed by me-normal sinus rhythm. PVC. Chest x-ray film personally reviewed by me-portable. Underpenetrated. Some cardiomegaly. CT brain: Without contrast: Atrophy with chronic-appearing white matter ischemic changes. CT angiogram to neck: Mild narrowing without significant evidence for close limiting stenosis bilateral internal carotid artery origins. Assessment and plan: -Patient presented acute weakness of the left side. Dysarthria. Facial asymmetry. Suspected brainstem stroke. Status post TPA. Neurology following. Patient has significant claustrophobia. MRI. -Coronary artery disease with stent Aspirin. Plavix held for now. -GERD PPI -Hyperlipidemia Increase Lipitor to 80 mg daily at bedtime. -Essential hypertension Permissive hypertension. 24 hours following stroke. Follow blood pressure closely -Primary osteoarthritis Percocet when necessary -Chronic nicotine dependence patient cigarette smoker Nicotine patch Care was discussed with the patient. Follow with neurology. Close blood pressure monitoring. Discussed. Past Medical History Past Medical History: Coronary Artery Disease (CAD), CVA/TIA, GERD/Reflux, Hyperlipidemia, Hypertension, Liver Disease, Myocardial Infarction ([place]), Vascular Disorder Additional Past Medical History / Comment(s): Patient states he was admitted to the hospital January after a fall with head injury/new onset seizures and was hospitalized at [facility] in [place]. He was on life support and was extubated and had one more seizure. 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 Patient states he has Hepatitis C. Last Myocardial Infarction Date:: 2011 History of Any Multi-Drug Resistant Organisms: None Reported Past Surgical History: Heart Catheterization With Stent, Orthopedic Surgery Additional Past Surgical History / Comment(s): PCI with a total of 7 stents per pt, L caratid endartectomy, L shoulder surgery for injury, R knee/R hip/R elbow/R wrist ligament/tendon type surgeries injuries-has pins in hand, colonoscopy. Past Anesthesia/Blood Transfusion Reactions: No Reported Reaction Date of Last Stent Placement:: 2011 Past Psychological History: Anxiety Smoking Status: Current every day smoker Past Alcohol Use History: None Reported Past Drug Use History: Marijuana - Past Family History Father Family Medical History: CVA/TIA Additional Family Medical History / Comment(s): Father is from CVA. Pt states father from "stupidity." Mother Family Medical History: Diabetes Mellitus Additional Family Medical History / Comment(s): Mother from diabetes at the age of 52 yrs. Brother(s) Family Medical History: Diabetes Mellitus Additional Family Medical History / Comment(s): Brother at the age of 32 yrs from type 1 diabetes. Medications and Allergies Home Medications Medication Instructions Recorded Confirmed Type Isosorbide Mononitrate ER [Imdur] 30 mg PO DAILY 09/07/17 03/27/23 History lisinopriL [Zestril] 10 mg PO DAILY 09/07/17 03/27/23 History Aspirin 81 mg PO DAILY #1 chewable 02/27/19 03/27/23 Rx Donepezil [Aricept] 10 mg PO HS 04/11/19 03/27/23 History Temazepam [Restoril] 30 mg PO HS 04/11/19 03/27/23 History amLODIPine [Norvasc] 5 mg PO DAILY 04/11/19 03/27/23 History Atorvastatin [Lipitor] 40 mg PO DAILY 03/22/23 03/27/23 History Citalopram Hydrobromide [CeleXA] 20 mg PO DAILY 03/22/23 03/27/23 History Clopidogrel [Plavix] 75 mg PO DAILY 03/22/23 03/27/23 History Cyclobenzaprine [Flexeril] 10 mg PO BID PRN 03/22/23 03/27/23 History LORazepam [Ativan] 1 mg PO TID 03/22/23 03/27/23 History Olopatadine HCl [Patanol 0.1%] 1 drop BOTH EYES TID 03/22/23 03/27/23 History Pantoprazole Sodium [Protonix] 20 mg PO BID 03/22/23 03/27/23 History oxyCODONE-APAP 10-325MG [Percocet 1 tab PO QID 03/22/23 03/27/23 History 10-325 mg] Allergies Allergy/AdvReac Type Severity Reaction Status Date / Time alprazolam [From Xanax] Allergy Unknown Verified 03/27/23 16:23 codeine Allergy Rash/Hives Verified 03/27/23 16:23 zolpidem [From Ambien] AdvReac "salty" Verified 03/27/23 16:23 taste in mouth, numb mouth Physical Exam Vitals: Vital Signs Temp Pulse Resp BP Pulse Ox 03/28/23 13:00 84 33 H 123/67 95 03/28/23 12:45 83 19 123/67 94 L 03/28/23 12:30 89 15 123/67 95 03/28/23 12:15 97.9 F 73 16 123/67 94 L 03/28/23 12:00 116/62 03/28/23 11:45 116/62 03/28/23 11:30 71 15 116/62 92 L 03/28/23 11:15 75 17 116/62 93 L 03/28/23 11:00 71 19 126/60 93 L 03/28/23 10:45 87 19 126/60 91 L 03/28/23 10:30 79 19 126/60 92 L 03/28/23 10:15 87 14 126/60 93 L 03/28/23 10:00 89 16 131/70 95 03/28/23 09:45 87 12 131/70 94 L 03/28/23 09:30 98.0 F 79 17 131/70 94 L 03/28/23 09:15 80 23 131/70 94 L 03/28/23 09:00 83 23 120/102 94 L 03/28/23 08:45 77 24 120/102 95 03/28/23 08:30 7 L 120/102 92 L 03/28/23 08:15 84 12 120/102 95 03/28/23 08:00 80 19 115/62 98 03/28/23 07:58 94 L 03/28/23 07:55 75 18 115/62 95 03/28/23 07:45 79 13 115/62 96 03/28/23 07:30 76 8 L 115/62 95 03/28/23 07:15 27 H 115/62 92 L 03/28/23 07:00 77 18 124/91 93 L 03/28/23 06:45 66 20 124/91 94 L 03/28/23 06:30 73 19 95 03/28/23 06:15 73 21 95 03/28/23 06:00 73 16 125/65 95 03/28/23 05:45 76 20 93 L 03/28/23 05:30 80 17 91 L 03/28/23 05:15 76 13 125/65 92 L 03/28/23 05:00 79 19 92 L 03/28/23 04:45 89 15 95 03/28/23 04:30 73 16 120/70 95 03/28/23 04:15 80 18 120/70 92 L 03/28/23 04:00 97.5 F L 84 17 93 L 03/28/23 03:45 80 18 123/73 93 L 03/28/23 03:30 17 123/73 95 03/28/23 03:15 74 11 L 123/73 96 03/28/23 03:00 73 19 115/78 95 03/28/23 02:45 85 8 L 96 03/28/23 02:30 71 12 95 03/28/23 02:15 79 32 H 115/78 94 L 03/28/23 02:00 72 17 110/67 03/28/23 01:45 73 13 95 03/28/23 01:30 79 10 L 94 L 03/28/23 01:15 69 10 L 110/67 94 L 03/28/23 01:00 68 14 107/67 95 03/28/23 00:45 80 18 120/106 95 03/28/23 00:30 66 21 106/73 93 L 03/28/23 00:15 73 20 110/76 93 L 03/28/23 00:00 97.6 F 71 18 109/68 95 03/27/23 23:45 73 18 109/68 96 03/27/23 23:42 72 23 109/68 94 L 03/27/23 23:30 80 28 H 115/71 96 03/27/23 23:15 73 19 110/96 95 03/27/23 23:00 79 19 114/79 95 03/27/23 22:45 70 17 114/79 97 03/27/23 22:30 79 22 102/78 95 03/27/23 22:15 70 21 101/79 95 03/27/23 22:00 78 12 103/70 94 L 03/27/23 21:45 80 10 L 103/70 96 03/27/23 21:30 82 26 H 96/74 95 03/27/23 20:44 82 18 119/74 98 03/27/23 20:14 87 87 H 123/89 98 03/27/23 19:44 81 18 100/74 98 03/27/23 19:30 80 18 109/74 98 03/27/23 19:14 80 18 109/74 98 03/27/23 19:00 69 18 115/79 99 03/27/23 18:49 71 20 115/69 99 03/27/23 18:30 74 20 119/71 99 03/27/23 18:15 60 20 108/66 99 03/27/23 18:13 54 L 16 108/66 99 03/27/23 18:00 76 17 111/69 99 03/27/23 17:59 60 16 111/69 98 03/27/23 17:45 55 L 17 121/70 99 03/27/23 17:44 58 L 20 96/66 98 03/27/23 17:30 62 21 110/67 98 03/27/23 17:15 70 20 119/78 98 03/27/23 17:00 72 20 116/69 98 03/27/23 16:52 73 21 119/72 98 03/27/23 16:20 98.0 F 83 20 147/71 99 Intake and Output 03/27/23 03/28/23 03/28/23 22:59 06:59 14:59 Intake Total 100 900 720 Output Total 350 670 235 Balance -250 230 485 Intake: IV 100 900 600 Sodium Chloride 0.9% 1, 100 900 600 000 ml @ 100 mls/hr IV . Q10H [facility] Rx#:[id number] Oral 120 Output: Urine 350 670 235 Other: Voiding Method Urinal Urinal Weight 86.183 kg 100 kg Results CBC & Chem 7: 03/28/23 05:50 03/28/23 05:50 Labs: Abnormal Lab Results - Last 24 Hours (Table) 03/27/23 03/27/23 03/27/23 Range/Units 16:30 16:34 16:34 WBC (3.8-10.6) k/uL Neutrophils # 7.8 H (1.3-7.7) k/uL Chloride 109 H (98-107) mmol/L Carbon Dioxide 19 L (22-30) mmol/L Glucose 120 H (74-99) mg/dL POC Glucose (mg/dL) 118 H (70-110) mg/dL HDL Cholesterol (40.00-60.00) mg/dL 03/27/23 03/27/23 03/28/23 Range/Units 21:56 21:56 05:50 WBC 14.4 H 11.9 H (3.8-10.6) k/uL Neutrophils # 11.1 H 8.2 H (1.3-7.7) k/uL Chloride 110 H (98-107) mmol/L Carbon Dioxide 19 L (22-30) mmol/L Glucose 103 H (74-99) mg/dL POC Glucose (mg/dL) (70-110) mg/dL HDL Cholesterol (40.00-60.00) mg/dL 03/28/23 03/28/23 Range/Units 05:50 05:50 WBC (3.8-10.6) k/uL Neutrophils # (1.3-7.7) k/uL Chloride 112 H (98-107) mmol/L Carbon Dioxide 21 L (22-30) mmol/L Glucose (74-99) mg/dL POC Glucose (mg/dL) (70-110) mg/dL HDL Cholesterol 35.70 L (40.00-60.00) mg/dL
[2023-03-28] MEDS: LORazepam 1 MG TAB PO PRN (17:32)
--- NOTE | 2023-03-28 17:43 | CA ---
Transthoracic Echo Report Name: Gordo James Age: 72 Gender: M : 1950 Exam Date: 03/28/2023 08:37 Exam Location: [place] [facility] Ht (in): 68 Wt (lb): 220 Ordering Physician: Brianna Kenney DO Attending/Referring Phys: Forensic Artist Celi Sanchez RDCS Procedure CPT: Indications: CVA Cardiac Hx: stents Technical Quality: Fair Contrast 1: Total Dose (mL): Contrast 2: Total Dose (mL): MEASUREMENTS (Male / Female) Normal Values 2D ECHO LV Diastolic Diameter PLAX 5.4 cm 4.2 - 5.9 / 3.9 - 5.3 cm LV Systolic Diameter PLAX 4.5 cm IVS Diastolic Thickness 1.4 cm 0.6 - 1.0 / 0.6 - 0.9 cm LVPW Diastolic Thickness 1.1 cm 0.6 - 1.0 / 0.6 - 0.9 cm LV Relative Wall Thickness 0.5 RV Internal Dim ED PLAX 2.7 cm LA Systolic Diameter LX 3.5 cm 3.0 - 4.0 / 2.7 - 3.8 cm LV Diastolic Volume MOD 4C 129.3 cm??? LV Systolic Volume MOD 4C 80.5 cm??? LV Ejection Fraction MOD 4C 37.7 % LV Cardiac Index MOD 4C 1844.4 cm???/min???m??? LV Diastolic Length 4C 8.1 cm LV Systolic Length 4C 6.8 cm LV Diastolic Volume MOD 2C 137.8 cm??? LV Systolic Volume MOD 2C 86.1 cm??? LV Ejection Fraction MOD 2C 37.5 % LV Cardiac Index MOD 2C 1954.5 cm???/min???m??? LV Diastolic Length 2C 8.1 cm LV Systolic Length 2C 6.6 cm LA Volume 71.8 cm??? 18 - 58 / 22 - 52 cm??? M-MODE Aortic Root Diameter MM 3.7 cm MV E Point Septal Separation 2.6 cm AV Cusp Separation MM 2.7 cm DOPPLER AV Peak Velocity 143.6 cm/s AV Peak Gradient 8.2 mmHg MV Area PHT 3.3 cm??? Mitral E Point Velocity 101.9 cm/s Mitral A Point Velocity 108.7 cm/s Mitral E to A Ratio 0.9 MV Deceleration Time 232.2 ms MV E' Velocity 6.7 cm/s Mitral E to MV E' Ratio 15.1 FINDINGS Left Ventricle Left ventricular ejection fraction is estimated at 40-45 %. Left ventricular cavity size normal. Moderately increased septal wall thickness. Basel inferior wall hypokinesis Right Ventricle Normal right ventricular size. Unable to estimate the right ventricular systolic pressure. Right Atrium Normal right atrial size. Left Atrium Moderately increased left atrial volume. Mitral Valve Structurally normal mitral valve. No mitral stenosis, regurgitation or prolapse. Aortic Valve Aortic valve not well visualized. No aortic valve stenosis or regurgitation. Tricuspid Valve Structurally normal tricuspid valve. No tricuspid stenosis, regurgitation or prolapse. Pulmonic Valve Pulmonic valve not well visualized. Pericardium No pericardial effusion. Aorta Normal size aortic root and proximal ascending aorta. CONCLUSIONS Left ventricular ejection fraction 40-45% with inferior hypokinesis Moderate increased left ventricular wall thickness No pericardial effusion Previewed by: Dr. Esteban Patel DO (Electronically Signed) Final Date: 28 March 2023 17:42
[2023-03-28] MEDS: NICOTINE 21MG/24HR PATCH TRANSDERM SCH (18:43)
[2023-03-28] MEDS: ASPIRIN 325 MG TAB PO SCH (18:43)
[2023-03-28] MEDS ORDERED: ATORVASTATIN 40 MG TAB PO SCH (21:00)
[2023-03-28] MEDS: ATORVASTATIN 80 MG TAB PO SCH (21:35)
[2023-03-28] MEDS: DONEPEZIL 10 MG TAB PO SCH (21:37)
[2023-03-28] MEDS: KETOTIFEN 0.025% OPHTH DROPS 5 ML BTL BOTH EYES SCH (21:37)
[2023-03-28] MEDS: PANTOPRAZOLE 40 MG TABLET PO SCH (21:37)
[2023-03-29] MEDS: LORazepam 1 MG TAB PO PRN (01:21)
[2023-03-29] MEDS: TEMAZEPAM 15 MG CAP PO SCH ×2 (03:45→20:26)
[2023-03-29] MEDS: oxyCODONE-APAP 10-325MG 1 EACH TAB PO PRN ×3 (04:33→20:25)
[2023-03-29] MEDS: SODIUM CHLORIDE 0.9% 1,000 ML IV SCH ×2 (04:34→13:51)
[2023-03-29 05:27] LABS: Basophils % (A) 0 %; Eosinophils # (A) 0.3 k/uL (0-0.7); Eosinophils % (A) 3 %; HCT 43.3 % (39.0-53.0); HGB 13.7 gm/dL (13.0-17.5); Hypochromasia Slight; Lymphocytes # (A) 2.1 k/uL (1.0-4.8); Lymphocytes % (A) 20 %; MCH 30.9 pg (25.0-35.0); MCHC 31.6 g/dL (31.0-37.0); MCV 97.8 fL (80.0-100.0); Mean Platelet Volume 9.1; Monocytes # (A) 0.8 k/uL (0-1.0); Monocytes % (A) 8 %; Neutrophils # (A) 7.3 k/uL (1.3-7.7); Neutrophils % (A) 67 %; Platelet Count 194 k/uL (150-450); RBC 4.43 m/uL (4.30-5.90); RDW 14.2 % (11.5-15.5); WBC 10.9 k/uL (3.8-10.6)
[2023-03-29 05:53] LABS: African American GFR (CKD) 86 (>60 ml/min/1.73 sqM); Anion Gap 8 mmol/L; Blood Urea Nitrogen 12 mg/dL (9-20); Carbon Dioxide 18 mmol/L (22-30); Chloride 111 mmol/L (98-107); Glucose 69 mg/dL (74-99); Non-African American GFR(CKD) 74 (>60 ml/min/1.73 sqM); Potassium 3.9 mmol/L (3.5-5.1); Sodium 137 mmol/L (137-145)
[2023-03-29 06:40] LABS: Glucose,Whole Blood 126 mg/dL (70-110)
[2023-03-29] MEDS ORDERED: POTASSIUM CHLORIDE ER 20 MEQ TAB.ER PO SCH (07:30)
[2023-03-29] MEDS: LORazepam 2 MG/ML INJ IV STA ×2 (09:09→09:13)
[2023-03-29] MEDS: PANTOPRAZOLE 40 MG TABLET PO SCH ×2 (09:09→20:25)
[2023-03-29] MEDS: KETOTIFEN 0.025% OPHTH DROPS 5 ML BTL BOTH EYES SCH ×2 (09:09→20:27)
[2023-03-29] MEDS: ISOSORBIDE MONONITRATE ER 30 MG TAB.ER.24H PO SCH (09:09)
[2023-03-29] MEDS: NICOTINE 21MG/24HR PATCH TRANSDERM SCH (09:09)
[2023-03-29] MEDS: CITALOPRAM HYDROBROMIDE 20 MG TAB PO SCH (09:09)
--- NOTE | 2023-03-29 10:10 | P.PN ---
Subjective Progress Note Date: 03/29/23 Principal diagnosis: CVA. Pulmonary consult dated 03/28/2023. 73-year-old male who was seen in the emergency department, on March 27, for possible CVA. He apparently came in with left arm and left leg numbness, and facial droop. His initial NIH score was 12. The patient had a computed tomography scan of the brain, and there was no bleeding, and hence, he received TPA. Currently, he is resting comfortably in the intensive care unit. He seen in room 254. The patient is doing much better, and is almost completely back to normal. He's currently on room air. He is getting saline at 100 mL an hour. Unfortunately, the patient does continue to smoke cigarettes. He has a history of coronary artery disease, with stenting 7, hypertension, hyperlipidemia, and gastroesophageal reflux disease. The patient apparently is also had a myocardial infarction in the past. The patient has been smoking for many years. White count 11.9, with a normal hemoglobin, hematocrit, and platelet count. Sodium 138, potassium 3.7, chlorides 112, CO2 21, BUN 15, and creatinine 1.0. Brain CT showed atrophy with chronic appearing periventricular white matter ischemic changes, which is stable. No acute intracranial process noted. Chest x-ray was normal. Angiography CT, showed mild narrowing, without significant flow limiting stenosis. Progress note dated 03/29/2023. 72-year-old male who was seen in consultation yesterday, for left-sided stroke symptoms. The patient received TPA in the emergency department, and, has had significant improvement. He seen today in room 254. He's on room air. He is receiving saline at 10 mL an hour. The patient will be going down for a follow- up computed tomography scan of the head, without contrast. He has no new complaints today. Labs today include a white count 10.9, hemoglobin 13.7, hematocrit 43.3, and a normal platelet count. Sodium 137, potassium 3.9, chlorides 111, CO2 18, BUN 12, creatinine 1.01. Objective - Vital Signs Vital signs: Vital Signs Temp 98 F 03/29/23 08:00 Pulse 89 03/29/23 10:00 Resp 26 H 03/29/23 10:00 BP 139/78 03/29/23 10:00 Pulse Ox 94 L 03/29/23 10:00 FiO2 Intake & Output 03/28/23 03/29/23 03/29/23 18:59 06:59 18:59 Intake Total 1120 1200 300 Output Total 610 975 500 Balance 510 225 -200 Weight 100 kg Intake: IV 1000 1200 300 Sodium Chloride 0.9% 1, 1000 1200 300 000 ml @ 100 mls/hr IV . Q10H [facility] Rx#:[id number] Oral 120 Output: Urine 610 975 500 Other: Voiding Method Urinal Urinal Urinal - Exam No acute distress, oriented 3. Currently on room air. HEENT examination is grossly unremarkable. Mucous membranes are moist. No oral lesions. Neck supple. Full range of motion. No adenopathy thyromegaly or neck vein distention. Cardiovascular examination reveals regular rhythm rate. S1-S2 normal. No S3 or S4. No discernible murmur noted. Heart rate 85 bpm. Lungs reveal clear breath sounds. Breath sounds are equal bilaterally. No adventitious lung sounds including wheezes rhonchi or crackles. Room air saturation 96 %. Abdomen soft bowel sounds are heard. No masses or tenderness. Extremities are intact. No cyanosis clubbing or edema. Skin is without rash or lesion. Neurologic examination is brief but nonfocal. - Labs CBC & Chem 7: 03/29/23 04:34 03/29/23 04:34 Labs: Abnormal Lab Results - Last 24 Hours (Table) 03/28/23 03/28/23 03/29/23 Range/Units 05:50 05:50 04:34 WBC 10.9 H (3.8-10.6) k/uL Chloride (98-107) mmol/L Carbon Dioxide (22-30) mmol/L Glucose (74-99) mg/dL POC Glucose (mg/dL) (70-110) mg/dL Hemoglobin A1c 6.1 H (<=6.0) % HDL Cholesterol 35.70 L (40.00-60.00) mg/dL 03/29/23 03/29/23 Range/Units 04:34 06:39 WBC (3.8-10.6) k/uL Chloride 111 H (98-107) mmol/L Carbon Dioxide 18 L (22-30) mmol/L Glucose 69 L (74-99) mg/dL POC Glucose (mg/dL) 126 H (70-110) mg/dL Hemoglobin A1c (<=6.0) % HDL Cholesterol (40.00-60.00) mg/dL Assessment and Plan Assessment: Acute right-sided CVA, with left-sided weakness, and left facial droop, S/P TPA, with near-complete resolution of the patient's symptoms. CAD, with multiple previous stents. Hypertension. Hyperlipidemia. Previous myocardial infarction. Ongoing tobacco use with nicotine addiction. Gastroesophageal reflux disease. Plan: Plan dated 03/28/2023. The patient was getting an echocardiogram this morning. He is currently on room air. Saline is running at 100 mL an hour. His initial NIH score was 12. His symptoms have almost completely resolved. The patient's doing very well, and we will continue to follow make recommendations along the way. The patient may have some underlying COPD. He is counseled about the importance of smoking cessation. Plan dated 03/29/2023. The patient is back to normal. He is currently on room air. He is getting saline at 100 mL an hour. The patient could be transferred out to the medical floor. He is scheduled to have a follow-up computed tomography scan of the brain today, without contrast. Labs, x-rays, and medications are all reviewed. The patient is counseled about the importance of smoking cessation. Time with Patient: Less than 30
--- NOTE | 2023-03-29 10:52 | CT ---
EXAMINATION TYPE: CT brain wo con DATE OF EXAM: 03/29/2023 COMPARISON: 03/27/2023 INDICATION: Post TPA DLP: 1197.4 mGycm, Automated exposure control for dose reduction was used. CONTRAST: None CT of the brain is performed utilizing 3 mm thick sections through the posterior fossa and 3 mm thick sections through the remaining calvarium. Study is performed within 24 hours of arrival to the hosp [facility]. No abnormal hyperdensity is present to suggest an acute intracranial hemorrhage. No mass lesion is evident. No acute infarcts are evident. Periventricular white matter hypodensity remains present, likely on th e basis of chronic white matter ischemic change. Small old lacunar infarct is likely present on the l eft. Ventricles and sulci are appropriate for the patient age. Paranasal sinuses and mastoid air cells within the [id number] are clear. IMPRESSION: 1. Stable chronic appearing white matter ischemic-type changes. 2. No suspicious acute intracranial hemorrhages.
[2023-03-29] MEDS: LORATADINE 10 MG TAB PO SCH (16:02)
--- NOTE | 2023-03-29 16:06 | P.PN ---
Progress Note - Text Progress Note Date: 03/29/23 Chief Complaint: Left-sided weakness This is a 72-year-old patient who follows with Dr. Felix. History of cardiac arrest. Tonic-clonic seizure. medical conditions include coronary artery disease with stent, GERD, hyperlipidemia, essential hypertension primary osteoar thritis. History of head injury. Hepatitis C. Arthritis. Patient yesterday sent down to eat pizza. Suddenly felt his vision was narrowed. Started feeling off. Left arm became weak. Speech became slurred. He was brought into the ER. In the ER there was left-sided weakness. Facial droop. Given TPA. He was admitted to the ICU and it was improvement in his neurological status. Today feels better. Speech is improved. Significant improvement of the left side. Able to eat his lunch. Seen by neurology. Patient does get charley horses on walking. Sometimes numbness in his feet. Has decreased vision in the left side of the visual field. March 29: ICU. Sitting at the edge of the bed. Eating his lunch. Feeling better. Weakness left side nearly resolved. Speech back to normal. Blood pressure good. Repeat CT brain today without contrast. Unremarkable. Active Medications Aspirin (Aspirin 325 Mg Tab) 325 mg PO Q24H [facility] Last Admin: 03/28/23 18:43 Dose: 325 mg Atorvastatin Calcium (Atorvastatin 80 Mg Tab) 80 mg PO HS [facility] Last Admin: 03/28/23 21:35 Dose: 80 mg Citalopram Hydrobromide (Citalopram Hydrobromide 20 Mg Tab) 20 mg PO DAILY [facility] Last Admin: 03/29/23 09:09 Dose: 20 mg Cyclobenzaprine HCl (Cyclobenzaprine 10 Mg Tab) 10 mg PO BID PRN PRN Reason: Muscle Spasm Donepezil HCl (Donepezil 10 Mg Tab) 10 mg PO HS [facility] Last Admin: 03/28/23 21:37 Dose: 10 mg Isosorbide Mononitrate (Isosorbide Mononitrate Er 30 Mg Tab.Er.24h) 30 mg PO DAILY [facility] Last Admin: 03/29/23 09:09 Dose: 30 mg Ketotifen Fumarate (Ketotifen 0.025% Ophth Drops 5 Ml Btl) 1 drops BOTH EYES BID [facility] Last Admin: 03/29/23 09:09 Dose: 1 drops Loratadine (Loratadine 10 Mg Tab) 10 mg PO DAILY [facility] Last Admin: 03/29/23 16:02 Dose: 10 mg Lorazepam (Lorazepam 1 Mg Tab) 1 mg PO Q8HR PRN PRN Reason: Anxiety Last Admin: 03/29/23 01:21 Dose: 1 mg Lorazepam (Lorazepam 2 Mg/Ml Inj) 2 mg IV ONCE PRN PRN Reason: Anxiety/for MRI Stop: 03/30/23 23:00 Miscellaneous Information (Alteplase Per Pharmacy Stroke 1 Each [facility]) 1 each MISCELLANE DIRECTED PRN PRN Reason: Stroke Miscellaneous Information (Potassium Replacement Protocol 1 Each [facility]) 1 each MISCELLANE DAILY PRN; Protocol PRN Reason: Per Protocol Naloxone HCl (Naloxone 0.4 Mg/Ml 1 Ml Vial) 0.2 mg IV Q2M PRN PRN Reason: Opioid Reversal Nicotine (Nicotine 21mg/24hr Patch) 1 patch TRANSDERM DAILY [facility] Last Admin: 03/29/23 09:09 Dose: 1 patch Oxycodone/Acetaminophen (Oxycodone-Apap 10-325mg 1 Each Tab) 1 each PO Q6HR PRN PRN Reason: Pain Last Admin: 03/29/23 14:35 Dose: 1 each Pantoprazole Sodium (Pantoprazole 40 Mg Tablet) 40 mg PO BID [facility] Last Admin: 03/29/23 09:09 Dose: 40 mg Temazepam (Temazepam 15 Mg Cap) 30 mg PO HS [facility] Last Admin: 03/29/23 03:45 Dose: Not Given Past medical history to include: Concussion, possible tonic-clonic seizure, coronary artery disease with stent, GERD, hyperlipidemia, essential hypertension, primary osteoarthritis, nicotine dependence.. Social history: Lives alone. Smokes a pack a day-several years. Denies alcohol. Physical examination: VITAL SIGNS: 98, 16, 107/59, 94% GENERAL: The bed, eating lunch EYES: Pupils equal. Conjunctiva normal. HEENT: External appearance of nose and ears normal, oral cavity grossly normal. NECK: JVD not raised; masses not palpable. HEART: First and second heart sounds are normal; no edema. Decreased dorsalis pedis. LUNGS: Respiratory rate normal; decreased breath sounds. ABDOMEN: Soft, nontender, liver spleen not palpable, no masses palpable. PSYCH: Alert and oriented x3; mood and affect anxious. NEUROLOGICAL: Mouth slightly pulled over to the left, left arm power 4/5. Abnormal sensation left side of the face. Speech normal. MUSCULAR skeletal: Evidence of OA. INVESTIGATIONS, reviewed in the clinical context: March 29: White count 10.9 hemoglobin 13.7 potassium 3.9 creatinine 1.01 LDL 75 March 28: White count 11.9 hemoglobin 14.1 platelets 238 sodium 138 potassium 3.7 BUN 15 creatinine 1.0 LDL 75 EKG tracing personally reviewed by me-normal sinus rhythm. PVC. Chest x-ray film personally reviewed by me-portable. Underpenetrated. Some cardiomegaly. CT brain: Without contrast: Atrophy with chronic-appearing white matter ischemic changes. CT angiogram to neck: Mild narrowing without significant evidence for close limiting stenosis bilateral internal carotid artery origins. Assessment and plan: -Patient presented acute weakness of the left side. Dysarthria. Facial asymmetry. Suspected brainstem stroke. Status post TPA. Neurology following. Patient has significant claustrophobia. Repeat computed tomography scan brain today unremarkable. -Coronary artery disease with stent Aspirin. Plavix held for now. -GERD PPI -Hyperlipidemia Increase Lipitor to 80 mg daily at bedtime. -Essential hypertension Follow blood pressure closely -Primary osteoarthritis Percocet when necessary -Chronic nicotine dependence patient cigarette smoker Nicotine patch discussed with the patient. Resume Plavix when okay with neurology. Past Medical History Past Medical History: Coronary Artery Disease (CAD), CVA/TIA, GERD/Reflux, Hyperlipidemia, Hypertension, Liver Disease, Myocardial Infarction (NM), Vascular Disorder Additional Past Medical History / Comment(s): Patient states he was admitted to the hospital January after a fall with head injury/new onset seizures and was hospitalized at [facility] in [place]. He was on life support and was extubated and had one more seizure. 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 Patient states he has Hepatitis C. Last Myocardial Infarction Date:: 2011 History of Any Multi-Drug Resistant Organisms: None Reported Past Surgical History: Heart Catheterization With Stent, Orthopedic Surgery Additional Past Surgical History / Comment(s): PCI with a total of 7 stents per pt, L caratid endartectomy, L shoulder surgery for injury, R knee/R hip/R elbow /R wrist ligament/tendon type surgeries injuries-has pins in hand, colonoscopy. Past Anesthesia/Blood Transfusion Reactions: No Reported Reaction Date of Last Stent Placement:: 2011 Past Psychological History: Anxiety Smoking Status: Current every day smoker Past Alcohol Use History: None Reported Past Drug Use History: Marijuana - Past Family History Father Family Medical History: CVA/TIA Additional Family Medical History / Comment(s): Father is from CVA. Pt states father from "stupidity." Mother Family Medical History: Diabetes Mellitus Additional Family Medical History / Comment(s): Mother from diabetes at the age of 52 yrs. Brother(s) Family Medical History: Diabetes Mellitus Additional Family Medical History / Comment(s): Brother at the age of 32 yrs from type 1 diabetes. Medications and Allergies Home Medications Medication Instructions Recorded Confirmed Type Isosorbide Mononitrate ER [Imdur] 30 mg PO DAILY 09/07/17 03/27/23 History lisinopriL [Zestril] 10 mg PO DAILY 09/07/17 03/27/23 History Aspirin 81 mg PO DAILY #1 chewable 02/27/19 03/27/23 Rx Donepezil [Aricept] 10 mg PO HS 04/11/19 03/27/23 History Temazepam [Restoril] 30 mg PO HS 04/11/19 03/27/23 History amLODIPine [Norvasc] 5 mg PO DAILY 04/11/19 03/27/23 History Atorvastatin [Lipitor] 40 mg PO DAILY 03/22/23 03/27/23 History Citalopram Hydrobromide [CeleXA] 20 mg PO DAILY 03/22/23 03/27/23 History Clopidogrel [Plavix] 75 mg PO DAILY 03/22/23 03/27/23 History Cyclobenzaprine [Flexeril] 10 mg PO BID PRN 03/22/23 03/27/23 History LORazepam [Ativan] 1 mg PO TID 03/22/23 03/27/23 History Olopatadine HCl [Patanol 0.1%] 1 drop BOTH EYES TID 03/22/23 03/27/23 History Pantoprazole Sodium [Protonix] 20 mg PO BID 03/22/23 03/27/23 History oxyCODONE-APAP 10-325MG [Percocet 1 tab PO QID 09/03/23 09/08/23 History 10-325 mg] Allergies Allergy/AdvReac Type Severity Reaction Status Date / Time alprazolam [From Xanax] Allergy Unknown Verified 03/27/23 16:23 codeine Allergy Rash/Hives Verified 03/27/23 16:23 zolpidem [From Ambien] AdvReac "salty" Verified 03/27/23 16:23 taste in mouth, numb mouth
[2023-03-29] MEDS: ASPIRIN 325 MG TAB PO SCH (17:58)
[2023-03-29] MEDS: DONEPEZIL 10 MG TAB PO SCH (20:25)
[2023-03-29] MEDS: ATORVASTATIN 80 MG TAB PO SCH (20:27)
[2023-03-30] MEDS: oxyCODONE-APAP 10-325MG 1 EACH TAB PO PRN ×3 (02:48→21:15)
[2023-03-30] MEDS ORDERED: LORazepam 2 MG/ML INJ IV PRN (06:00)
[2023-03-30] MEDS: LORATADINE 10 MG TAB PO SCH (08:24)
[2023-03-30] MEDS: PANTOPRAZOLE 40 MG TABLET PO SCH ×2 (08:24→21:15)
[2023-03-30] MEDS: CYCLOBENZAPRINE 10 MG TAB PO PRN (08:24)
[2023-03-30] MEDS: CITALOPRAM HYDROBROMIDE 20 MG TAB PO SCH (08:24)
[2023-03-30] MEDS: ISOSORBIDE MONONITRATE ER 30 MG TAB.ER.24H PO SCH (08:24)
[2023-03-30] MEDS: NICOTINE 21MG/24HR PATCH TRANSDERM SCH (08:24)
[2023-03-30] MEDS: KETOTIFEN 0.025% OPHTH DROPS 5 ML BTL BOTH EYES SCH ×2 (08:27→21:16)
--- NOTE | 2023-03-30 09:20 | P.PN ---
Subjective Progress Note Date: 03/30/23 73-year-old male who was seen in the emergency department, on March 27, for possible CVA. He apparently came in with left arm and left leg numbness, and facial droop. His initial NIH score was 12. The patient had a computed tomography scan of the brain, and there was no bleeding, and hence, he received TPA. Currently, he is resting comfortably in the intensive care unit. He seen in room 254. The patient is doing much better, and is almost completely back to normal. He's currently on room air. He is getting saline at 100 mL an hour. Unfortunately, the patient does continue to smoke cigarettes. He has a history of coronary artery disease, with stenting 7, hypertension, hyperlipidemia, and gastroesophageal reflux disease. The patient apparently is also had a myocardial infarction in the past. The patient has been smoking for many years. White count 11.9, with a normal hemoglobin, hematocrit, and platelet count. Sodium 138, potassium 3.7, chlorides 112, CO2 21, BUN 15, and creatinine 1.0. Brain CT showed atrophy with chronic appearing periventricular white matter ischemic changes, which is stable. No acute intracranial process noted. Chest x-ray was normal. Angiography CT, showed mild narrowing, without significant flow limiting stenosis. Progress note dated 03/29/2023. 72-year-old male who was seen in consultation yesterday, for left-sided stroke symptoms. The patient received TPA in the emergency department, and, has had significant improvement. He seen today in room 254. He's on room air. He is receiving saline at 10 mL an hour. The patient will be going down for a follow- up computed tomography scan of the head, without contrast. He has no new comp laints today. Labs today include a white count 10.9, hemoglobin 13.7, hematocrit 43.3, and a normal platelet count. Sodium 137, potassium 3.9, chlorides 111, CO2 18, BUN 12, creatinine 1.01. 2022, I'm seeing the patient for a follow-up. The patient is post TPA. Neurologically intact. Moving all 4 extremities. Able to swallow. Left-sided weakness has subsided and the patient is going to have an MRI of the brain today. Echocardiogram that was done on 03/28/2023 showed mild impairment of LV function with an ejection fraction of 40-45% and inferior wall hypokinesis. The patient is known to have coronary artery disease. He has undergone multiple coronary stenting. At the same time there is moderately increased LV wall thickening. No evidence of any pericardial effusion. In terms of medication, the patient is currently on aspirin 325 mg by mouth daily. He is taking Comer for pain control. He has chronic back pain and he also takes nonsteroidal anti- inflammatory medications. He is on Lipitor high-dose 80 mg by mouth daily. MRI of the brain is to be done today. The BUN 12 with a creatinine of 1. The white cell count is at 10.9 with a hemoglobin 15.7. His LDL cholesterol was was 75. CT angiography that was done on 03/27/2023 showed mild narrowing without any significant flow limitation of the bilateral internal carotid arteries. No other acute vascular abnormalities noted. There is condition is stable for now. Blood pressure is 138/78. On today's examination, the patient continues to have some residual left-sided weakness in the left arm slightly weaker compared to the right. No facial asymmetry. Adequate swallow. Objective - Vital Signs Vital signs: Vital Signs Temp 98.4 F 03/30/23 08:00 Pulse 86 03/30/23 08:00 Resp 19 03/30/23 08:00 BP 138/78 03/30/23 08:00 Pulse Ox 95 03/30/23 08:57 FiO2 21 03/30/23 08:57 Intake & Output 03/29/23 03/30/23 03/30/23 18:59 06:59 18:59 Intake Total 1200 0 Output Total 1200 450 200 Balance 0 -450 -200 Intake: IV 500 0 Sodium Chloride 0.9% 1, 500 0 000 ml @ 100 mls/hr IV . Q10H [facility] Rx#:[id number] Tube Feeding 700 Output: Urine 1200 450 200 Other: Voiding Method Urinal Urinal - Exam No acute distress, oriented 3. Currently on room air. HEENT examination is grossly unremarkable. Mucous membranes are moist. No oral lesions. Neck supple. Full range of motion. No adenopathy thyromegaly or neck vein distention. Cardiovascular examination reveals regular rhythm rate. S1-S2 normal. No S3 or S4. No discernible murmur noted. Lungs reveal clear breath sounds. Breath sounds are equal bilaterally. No adventitious lung sounds including wheezes rhonchi or crackles. Abdomen soft bowel sounds are heard. No masses or tenderness. Extremities are intact. No cyanosis clubbing or edema. Skin is without rash or lesion. Neurologic examination is brief but nonfocal. - Labs CBC & Chem 7: 03/29/23 04:34 03/29/23 04:34 Assessment and Plan Plan: Acute right-sided CVA, with left-sided weakness, and left facial droop, S/P TPA, with near-complete resolution of the patient's symptoms. The patient continues to have some minimal residual left-sided weakness on today's examination. Symptoms are stable on today's evaluation of the patient has no new onset neurological deficit. Follow-up CAT scan of the brain was done on 03/29/2023 showed stable chronic white matter ischemic changes without any acute bleeds. No evidence of any thrombotic stroke either. MRIs to follow. CAD, with multiple previous stents. The patient is a preserved LV function, moderate LVH Hypertension. Hyperlipidemia. Previous myocardial infarction. Ongoing tobacco use with nicotine addiction. Gastroesophageal reflux disease. Plan: MRI of the brain today Continue aspirin Continue Lipitor Echo was noted Repeat CAT scan of the brain shows no evidence of any bleeding The patient will need physical therapy We'll continue to follow
--- NOTE | 2023-03-30 11:01 | MR ---
EXAMINATION TYPE: MR brain wo con DATE OF EXAM: 03/30/2023 10:50 AM CLINICAL INDICATION:Male, 72 years old with history of Post CVA/TPA, Neuro deficit, CVA/TIA. COMPARISON: 03/29/2023. TECHNIQUE: Multi planar, multi sequence imaging was performed through the brain including: T1, T2, In version recovery, Diffusion weighted imaging, and gradient echo imaging. No gadolinium was given. FINDINGS: Restricted diffusion within the left parietal/occipital region, the right thalamus. Scattered foci of high T2 signal intensity are seen within the periventricular white matter. Midline structures show n o abnormality. Diffusion-weighted imaging shows no evidence of restricted diffusion. The bone marrow signal is within normal limits. Paranasal sinuses and mastoid air cells: No significant paranasal sinus disease. Visualized orbits: Orbital contents are intact. IMPRESSION: 1. Acute/subacute CVA involving the right thalamus and left parietal/occipital region. Correlate for embolic phenomenon. 2. Nonspecific white matter changes, likely secondary to small vessel ischemic disease.
[2023-03-30] MEDS: TICAGRELOR 90 MG TAB PO SCH ×2 (13:28→21:20)
[2023-03-30] MEDS: polyethylene glycoL 3350 17 GM POWD.PACK PO SCH (13:30)
--- NOTE | 2023-03-30 13:58 | CONS ---
CONSULTATION HISTORY OF PRESENT ILLNESS: Mr. James is a 72-year-old gentleman with a known history of ischemic cardiomyopathy with a prior CO and PCI of probably RCA performed 12 years ago. He also has a history of CVA in the past. Details of which are not available at this time. He came into the hospital with left-sided weakness, facial droop and he received tPA with fair improvement, but he still has residual weakness of both left upper and lower extremity, but there is improvement since the tPA. He went on to have an MRI of the brain, which suggested possible embolic stroke. He also had a CT angiogram, which did not reveal any significant obstructive disease in the in the carotid system or in the intracranial vessels. There is an acute or subacute CVA involving the right thalamus and left parietal and occipital area. In view of multiple infarcts, possibility of an embolic phenomena is being considered and we were requested to evaluate the patient and perform transesophageal echo. The patient at the time of my evaluation is resting comfortably, has no chest pain or shortness of breath. He has given me good history. He has previous history of inferior CO and PCI probably of RCA, although not verified. He has no chest pain or shortness of breath. PAST MEDICAL HISTORY: 1. CVA with fair recovery, status post tPA possible embolic. 2. Hypertension. 3. Hyperlipidemia. 4. History of prior CVA. 5. History of CAD, CO and PCI of probably RCA, details unavailable. PHYSICAL EXAMINATION: VITAL SIGNS: Blood pressure is 130/70, pulse rate is 80 per minute and regular. HEENT: Unremarkable. Fundus was not examined by me. NECK: Supple. There is no JVD. I do not hear a carotid bruit. HEART: Reveals S1 and S2 heard normally. No significant murmurs. LUNGS: Reveal decent air entry. ABDOMEN: Soft, nontender. EXTREMITIES: Lower extremities reveal diminished pulses. CENTRAL NERVOUS SYSTEM: Reveals left-sided residual weakness. IMAGING: EKG revealed sinus mechanism, isolated PVCs, evidence of old Q-waves in inferior leads suggestive of old inferior CO. IMPRESSION: 1. Subacute embolic stroke, status post tPA administration. 2. Hypertension. 3. Hyperlipidemia. 4. Stable coronary artery disease with prior CO and PCI, details unavailable. RECOMMENDATIONS: The patient is advised to be n.p.o. We will do transesophageal echo tomorrow. Risks, benefits, options, and rationale were explained. Dr. Lofton will perform the procedure. I will also recommend a 30-day event monitor for this patient upon discharge to rule out atrial fibrillation. Rhythm strip review here in the hospital does not suggest any evidence of atrial fibrillation. Thank you very much for the consult. JEAN MARIE / IJN: [id number] /
--- NOTE | 2023-03-30 14:02 | US ---
EXAMINATION TYPE: US carotid duplex BILAT DATE OF EXAM: 03/30/2023 COMPARISON: NONE CLINICAL INDICATION: Male, 72 years old with history of stroke; 2 strokes TECHNIQUE: Carotid duplex ultrasound examination. Indirect Doppler criteria was utilized. 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 Criteria for Assigning % of Stenosis / Diameter reduction (Estimation based on the indirect measurements of the internal carotid artery velocities (ICA PSV). 1. Normal (no stenosis)=ICA PSV < 125 cm/s: ratio < 2.0: ICA EDV<40 cm/s. 2. Less than 50% stenosis=ICA PSV < 125 cm/s: ratio < 2.0: ICA EDV<40 cm/s. 3. 50 to 69% stenosis=ICA PSV of 125 to 230 cm/s: ration 2.0 ? 4.0: ICA EDV 40-100 cm/s. 4. Greater than 70% stenosis to near occlusion= ICA PSV > 230 cm/s: ratio > 4.0: ICA EDV > 100 cm/s. 5. Near occlusion= ICA PSV velocities may be low or undetectable: variable ratio and ICA EDV. 6. Total occlusion=unable to detect flow.
--- NOTE | 2023-03-30 14:22 | P.PN ---
Subjective Progress Note Date: 03/30/23 I am seeing the patient for the first time during this admission. Please refer to Dr. Kenney's note for further details. He states he presented to the hospital for dizziness then became unresponsiveness. He has multiple TIA's in the past and was on ASA and plavix. He was told he had right ICA stenosis. In our facility because of his stroke like symptoms, he was given IV tpa on 03/27/2023. Patient denies history of atrial fibrillation or flutter. He follows-up with Dr. De La Rosa's N.P. or P.A. for neurological care. He denies of any further dizziness nor any new neurological new deficits. Objective - Vital Signs Vital signs: Vital Signs Temp 98.0 F 03/30/23 12:00 Pulse 84 03/30/23 12:00 Resp 20 03/30/23 12:00 BP 131/73 03/30/23 12:00 Pulse Ox 92 L 03/30/23 12:00 FiO2 21 03/30/23 08:57 Intake & Output 03/29/23 03/30/23 03/30/23 18:59 06:59 18:59 Intake Total 1200 0 300 Output Total 1200 450 400 Balance 0 -450 -100 Intake: IV 500 0 Sodium Chloride 0.9% 1, 500 0 000 ml @ 100 mls/hr IV . Q10H [facility] Rx#:[id number] Oral 300 Tube Feeding 700 Output: Urine 1200 450 400 Other: Voiding Method Urinal Urinal Urinal - Exam GENERAL: The patient is sitting in a recliner chair and is not in acute distress. NEUROLOGICAL: Higher mental function: The patient is awake, alert, oriented to self, place and time. Patient is following commands. No aphasia and no neglect. Cranial nerves: The pupils are round, equal and reactive to light. Visual stevens are full to confrontation throughout. Extraocular movement is intact no nystagmus is noted. Facial sensation is normal to touch throughout. The facial strength is normal throughout. Tongue is midline and moved [id number] without any difficulty. No dysarthria is noted. Motor: The strength is limited on the left upper and lower extremity because of left shoulder pain and hip pain. His strength was at least 4+ on left side. Bilateral hand culinary director are 5/5. Otherwise, rest are 5/5. . Normal tone and bulk. Cerebellum: Normal finger to nose bilaterally. Sensation: Sensation is normal to touch throughout. SOME OF THE WORK-UP DURING THIS HOSPITAL VISIT CONSISTED OF: Lipid panel: TG 120, Choles 135, LDL 75 and HDL 35 HbA1c: 6.1 MRI Brain is reported as acute/subacute CVA involving right thalamus/left parietal occipital region. Correlate for embolic phenomenon. Nonspecific white matter changes, likely secondary to small vessel ischemic disease. I personally reviewed it and agree with right thalamus but on left felt more temporal- occipital region. CTA head and neck reported as Mild narrowing without significant flow-limiting stenosis bilateral internal carotid artery. Normal [place]. 2D echo: Is reported as left ventricular ef 40-45% with inferior hypokinesis. Moderate increased left ventricular wall thickness.Moderately increased left atrial volume. - Labs CBC & Chem 7: 03/29/23 04:34 03/29/23 04:34 Assessment and Plan Assessment: This is a 72 y/o gentleman who presented with dizziness, headache, not responding. He received IV tpa because of stroke-like symptoms. On MRI he has acute ischemic stroke. Acute ischemic stroke involving right thalamus and I felt more left temporal- occipital (was reported by radiologist as parietal-occipital). Is embolic in nature. Unsure if cardiembolic vs artery to artery post IV tpa Bilateral carotid stenosis 50-69% stenosis on duplex (discordant between duplex and CTA. CTA show mild narrowing). Patient stated in past was told has moderate to significant stenosis of right in past. History of multiple TIA's in past History of CA s/p stent History of [place] Hypertension Hyperlipidemia X-tobacco use Plan: He was started on his home dose of ASA 325mg daily post IV tpa yesterday but was not restarted his Plavix. Since he had acute stroke he failed his home medication and I started him on Brilintal 90mg 1 tab bid and lowered ASA to 81mg daily. No need for Plavix since failed and Plavix is more effective. Continue Lipitor 80mg daily. I consulted vascular surgery team for carotid stenosis. Cardiology is consulted for ISRAEL. Recommend event monitor for 30 days if work-up is neative. Continue neuro checks Cardiac monitoring. PT, OT and BRICKLAYER SUPERVISOR are consulted. Will defer the rest of medical management to primary team. For DVT prophylaxis: I started the patient on subq heparin 5000U every 12 hours. The plan is discussed with patient and his nurse. Time with Patient: Less than 30
--- NOTE | 2023-03-30 15:09 | P.GSCN ---
History of Present Illness Consult date: 03/30/23 Reason for Consult: Carotid stenosis Requesting physician: Chris Bejarano History of present illness: This is a pleasant 72-year-old male who presented to the emergency department 3 days ago who came into the emergency department for strokelike symptoms. Patient states last Thursday he was eating pizza and he started getting tunnel vision, he states then he started feeling dizzy and weak. By the time he came to the emergency department he couldn't walk and had weakness on his left side. He has a past medical history including coronary artery disease status post stents, hypertension, hyperlipidemia, multiple TIAs, carotid stenosis status post left carotid endarterectomy approximately 7 years ago, and is a current every day smoker. Patient home meds did include Plavix 75 mg daily, aspirin 81 mg daily, atorvastatin 40 mg daily. Patient had TPA and was admitted to the ICU. He has had multiple workup while admitted. Initially had a CT angiogram head and neck that showed no significant internal carotid artery stenosis however underwent carotid ultrasound today that did report 50-69% stenosis in bilateral carotid arteries. Vascular surgery was consulted for carotid stenosis. Patient states he still has about 60% vision loss in the left eye. He has no speech deficits, some mild weakness in the left upper extremity. He denies any shortness of breath, chest pain, abdominal pain, nausea or vomiting. Patient was seen by cardiology and to undergo ISRAEL tomorrow. Review of Systems A 14 point review systems was completed all pertinent positives and negatives as stated in the HPI. Past Medical History Past Medical History: Coronary Artery Disease (CAD), CVA/TIA, GERD/Reflux, Hyperlipidemia, Hypertension, Liver Disease, Myocardial Infarction ([place]), Vascular Disorder Additional Past Medical History / Comment(s): Patient states he was admitted to the hospital January after a fall with head injury/new onset seizures and was hospitalized at [facility] in [place]. He was on life support and was extubated and had one more seizure. 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 Patient states he has Hepatitis C. Last Myocardial Infarction Date:: 2011 History of Any Multi-Drug Resistant Organisms: None Reported Past Surgical History: Heart Catheterization With Stent, Orthopedic Surgery Additional Past Surgical History / Comment(s): PCI with a total of 7 stents per pt, L caratid endartectomy, L shoulder surgery for injury, R knee/R hip/R elbow/R wrist ligament/tendon type surgeries injuries-has pins in hand, colonoscopy. Past Anesthesia/Blood Transfusion Reactions: No Reported Reaction Date of Last Stent Placement:: 2011 Past Psychological History: Anxiety Smoking Status: Current every day smoker Past Alcohol Use History: None Reported Past Drug Use History: Marijuana - Past Family History Father Family Medical History: CVA/TIA Additional Family Medical History / Comment(s): Father is from CVA. Pt states father from "stupidity." Mother Family Medical History: Diabetes Mellitus Additional Family Medical History / Comment(s): Mother from diabetes at the age of 52 yrs. Brother(s) Family Medical History: Diabetes Mellitus Additional Family Medical History / Comment(s): Brother at the age of 32 yrs from type 1 diabetes. Medications and Allergies Home Medications Medication Instructions Recorded Confirmed Type Isosorbide Mononitrate ER [Imdur] 30 mg PO DAILY 09/07/17 03/27/23 History lisinopriL [Zestril] 10 mg PO DAILY 09/07/17 03/27/23 History Aspirin 81 mg PO DAILY #1 chewable 02/27/19 03/27/23 Rx Donepezil [Aricept] 10 mg PO HS 04/11/19 03/27/23 History Temazepam [Restoril] 30 mg PO HS 04/11/19 03/27/23 History amLODIPine [Norvasc] 5 mg PO DAILY 04/11/19 03/27/23 History Atorvastatin [Lipitor] 40 mg PO DAILY 03/22/23 03/27/23 History Citalopram Hydrobromide [CeleXA] 20 mg PO DAILY 03/22/23 03/27/23 History Clopidogrel [Plavix] 75 mg PO DAILY 03/22/23 03/27/23 History Cyclobenzaprine [Flexeril] 10 mg PO BID PRN 03/22/23 03/27/23 History LORazepam [Ativan] 1 mg PO TID 03/22/23 03/27/23 History Olopatadine HCl [Patanol 0.1%] 1 drop BOTH EYES TID 03/22/23 03/27/23 History Pantoprazole Sodium [Protonix] 20 mg PO BID 03/22/23 03/27/23 History oxyCODONE-APAP 10-325MG [Percocet 1 tab PO QID 03/22/23 03/27/23 History 10-325 mg] Allergies Allergy/AdvReac Type Severity Reaction Status Date / Time alprazolam [From Xanax] Allergy Unknown Verified 03/27/23 16:23 codeine Allergy Rash/Hives Verified 03/27/23 16:23 zolpidem [From Ambien] AdvReac "salty" Verified 03/27/23 16:23 taste in mouth, numb mouth Surgical - Exam Vital Signs Temp Pulse Resp BP Pulse Ox 98.0 F 83 20 147/71 99 03/27/23 16:20 03/27/23 16:20 03/27/23 16:20 03/27/23 16:20 03/27/23 16:20 General appearance: The patient is alert, oriented, appears in no acute di stress. HET: Head is normocephalic and atraumatic. Pupils are equal and reactive. Neck: Supple. Heart: Regular. Lungs: Equal expansion, normal respiratory effort. Abdomen: Soft, nontender, nondistended. Extremities: Normal skin color and turgor. Neurological: He is alert and oriented 3. Speech is fluent, he follows commands and answers questions appropriately, has facial symmetry, there is some mild weakness in the left crown pouncer compared to the right. Results - Labs 03/29/23 04:34 03/29/23 04:34 - Imaging Comments: 03/27/2023 CT brain without contrast reported atrophy with chronic appearing per iventricular white matter ischemic changes stable from comparison. No acute intracranial process follow-up MRI can be performed as clinically indicated. CT angiogram head and neck Reports mild narrowing without significant flow- limiting stenosis bilateral internal carotid artery origins. Normal [place] 03/29/2023 CT brain without contrast stable chronic appearing white matter ischemic type changes. No suspicious acute intracranial hemorrhage Brain MRI reports acute/subacute CVA involving the right thalamus and left parietal/occipital region. Correlate for embolic phenomenon. Nonspecific white matter changes, likely secondary to small ischemic disease. Carotid duplex: 50-69% diameter reduction suggested bilaterally Echocardiogram reports left ventricular ejection fraction 40-45% with inferior hypokinesis, moderate increased left ventricular wall thickness, no pericardial effusion Assessment and Plan Assessment: 1. Acute ischemic stroke involving right thalamus left parietal occipital, likely embolic 2. Discordant findings between head and neck CTA versus carotid duplex. CTA of reporting no significant stenosis versus carotid duplex reporting bilateral internal carotid artery stenosis 50-69% 3. History of multiple TIAs status post left carotid endarterectomy approximately 7 years ago 4. Coronary artery disease status post multiple stents 5. Hypertension 6. Hyperlipidemia 7. Tobacco abuse Plan: 1. Continue with recommendations from neurology 2. Patient scheduled for ISRAEL tomorrow with cardiology 3. Continue medical therapy at this time 4. Further recommendations forthcoming per vascular surgeon Thank you for this consultation, we will continue to follow. The impression and plan of care has been dictated as directed. I performed a history and examination of this patient, discussed the same with the dictator. I agree with the dictator's note ,documented as a scribe. Any additional findings or plans will be noted.
--- NOTE | 2023-03-30 16:03 | P.PN ---
Progress Note - Text Progress Note Date: 03/30/23 Chief Complaint: Left-sided weakness This is a 72-year-old patient who follows with Dr. Felix. History of cardiac arrest. Tonic-clonic seizure. medical conditions include coronary artery disease with stent, GERD, hyperlipidemia, essential hypertension primary osteoar thritis. History of head injury. Hepatitis C. Arthritis. Patient yesterday sent down to eat pizza. Suddenly felt his vision was narrowed. Started feeling off. Left arm became weak. Speech became slurred. He was brought into the ER. In the ER there was left-sided weakness. Facial droop. Given TPA. He was admitted to the ICU and it was improvement in his neurological status. Today feels better. Speech is improved. Significant improvement of the left side. Able to eat his lunch. Seen by neurology. Patient does get charley horses on walking. Sometimes numbness in his feet. Has decreased vision in the left side of the visual field. March 29: ICU. Sitting at the edge of the bed. Eating his lunch. Feeling better. Weakness left side nearly resolved. Speech back to normal. Blood pressure good. Repeat CT brain today without contrast. Unremarkable. March 30: ICU. Sitting up edge of bed eating lunch. As per the patient and the doctor's ex- and daughter both felt to speech is not back to normal. Very slight weakness in the left arm. MRI of the brain did confirm stroke in 2 different areas. ISRAEL ordered. Brillinta started by neurology. Active Medications Aspirin (Aspirin 81 Mg) 81 mg PO DAILY [facility] Atorvastatin Calcium (Atorvastatin 80 Mg Tab) 80 mg PO HS [facility] Last Admin: 03/29/23 20:27 Dose: 80 mg Citalopram Hydrobromide (Citalopram Hydrobromide 20 Mg Tab) 20 mg PO DAILY [facility] Last Admin: 03/30/23 08:24 Dose: 20 mg Cyclobenzaprine HCl (Cyclobenzaprine 10 Mg Tab) 10 mg PO BID PRN PRN Reason: Muscle Spasm Last Admin: 03/30/23 08:24 Dose: 10 mg Donepezil HCl (Donepezil 10 Mg Tab) 10 mg PO HS [facility] Last Admin: 03/29/23 20:25 Dose: 10 mg Heparin Sodium (Porcine) (Heparin Sodium,Porcine 5,000 Unit/Ml 1 Ml Vial) 5,000 unit SQ Q12HR [facility] Isosorbide Mononitrate (Isosorbide Mononitrate Er 30 Mg Tab.Er.24h) 30 mg PO DAILY [facility] Last Admin: 03/30/23 08:24 Dose: 30 mg Ketotifen Fumarate (Ketotifen 0.025% Ophth Drops 5 Ml Btl) 1 drops BOTH EYES BID [facility] Last Admin: 03/30/23 08:27 Dose: 1 drops Loratadine (Loratadine 10 Mg Tab) 10 mg PO DAILY [facility] Last Admin: 03/30/23 08:24 Dose: 10 mg Lorazepam (Lorazepam 1 Mg Tab) 1 mg PO Q8HR PRN PRN Reason: Anxiety Last Admin: 03/29/23 01:21 Dose: 1 mg Miscellaneous Information (Potassium Replacement Protocol 1 Each Misc) 1 each MISCELLANE DAILY PRN; Protocol PRN Reason: Per Protocol Naloxone HCl (Naloxone 0.4 Mg/Ml 1 Ml Vial) 0.2 mg IV Q2M PRN PRN Reason: Opioid Reversal Nicotine (Nicotine 21mg/24hr Patch) 1 patch TRANSDERM DAILY [facility] Last Admin: 03/30/23 08:24 Dose: 1 patch Oxycodone/Acetaminophen (Oxycodone-Apap 10-325mg 1 Each Tab) 1 each PO Q6HR PRN PRN Reason: Pain Last Admin: 03/30/23 08:52 Dose: 1 each Pantoprazole Sodium (Pantoprazole 40 Mg Tablet) 40 mg PO BID [facility] Last Admin: 03/30/23 08:24 Dose: 40 mg Polyethylene Glycol (Polyethylene Glycol 3350 17 Gm Powd.Pack) 17 gm PO DAILY [facility] Last Admin: 03/30/23 13:30 Dose: 17 gm Temazepam (Temazepam 15 Mg Cap) 30 mg PO HS [facility] Last Admin: 03/29/23 20:26 Dose: 30 mg Ticagrelor (Ticagrelor 90 Mg Tab) 90 mg PO BID [facility] Last Admin: 03/30/23 13:28 Dose: 90 mg Past medical history to include: Concussion, possible tonic-clonic seizure, coronary artery disease with stent, GERD, hyperlipidemia, essential hypertension, primary osteoarthritis, nicotine dependence.. Social history: Lives alone. Smokes a pack a day-several years. Denies alcohol. Physical examination: VITAL SIGNS: 98, 84, 20, 131/73, 92% room air GENERAL: Sitting up edge of the bed, eating lunch EYES: Pupils equal. Conjunctiva normal. HEENT: External appearance of nose and ears normal, oral cavity grossly normal. NECK: JVD not raised; masses not palpable. HEART: First and second heart sounds are normal; no edema. Decreased dorsalis pedis. LUNGS: Respiratory rate normal; decreased breath sounds. ABDOMEN: Soft, nontender, liver spleen not palpable, no masses palpable. PSYCH: Alert and oriented x3; mood and affect anxious. NEUROLOGICAL: Mouth slightly pulled over to the left, left arm power 4/5. Abnormal sensation left side of the face. Speech very slightly slow. MUSCULAR skeletal: Evidence of OA. INVESTIGATIONS, reviewed in the clinical context: Carotid Doppler: 50-69% reduction suggested bilaterally. MRI brain without contrast: Acute/subacute CVA involving the right thalamus and the left parietal occipital region. Some nonspecific) changes. March 29: White count 10.9 hemoglobin 13.7 potassium 3.9 creatinine 1.01 LDL 75 March 28: White count 11.9 hemoglobin 14.1 platelets 238 sodium 138 potassium 3.7 BUN 15 creatinine 1.0 LDL 75 EKG tracing personally reviewed by me-normal sinus rhythm. PVC. Chest x-ray film personally reviewed by me-portable. Underpenetrated. Some cardiomegaly. CT brain: Without contrast: Atrophy with chronic-appearing white matter ischemic changes. CT angiogram to neck: Mild narrowing without significant evidence for close limiting stenosis bilateral internal carotid artery origins. Assessment and plan: -Acute stroke felt to be embolic: Involving the right thalamus in the left rectal/occipital region. Status post TPA. Neurology following. Aspirin. Started on Brillinta Cardiology consulted for ISRAEL. -Coronary artery disease with stent Aspirin. -GERD PPI -Hyperlipidemia Increase Lipitor to 80 mg daily at bedtime. -Essential hypertension Follow blood pressure closely -Primary osteoarthritis Percocet when necessary -Chronic nicotine dependence patient cigarette smoker Nicotine patch discussed with the patient. Being followed by neurology. Cardiology consulted for ISRAEL. Past Medical History Past Medical History: Coronary Artery Disease (CAD), CVA/TIA, GERD/Reflux, Hyperlipidemia, Hypertension, Liver Disease, Myocardial Infarction ([place]), Vascular Disorder Additional Past Medical History / Comment(s): Patient states he was admitted to the hospital January after a fall with head injury/new onset seizures and was hospitalized at [facility]. He was on life support and was extubated and had one more seizure. 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 Patient states he has Hepatitis C. Last Myocardial Infarction Date:: 2011 History of Any Multi-Drug Resistant Organisms: None Reported Past Surgical History: Heart Catheterization With Stent, Orthopedic Surgery Additional Past Surgical History / Comment(s): PCI with a total of 7 stents per pt, L caratid endartectomy, L shoulder surgery for injury, R knee/R hip/R elbow/R wrist ligament/tendon type surgeries injuries-has pins in hand, colonoscopy. Past Anesthesia/Blood Transfusion Reactions: No Reported Reaction Date of Last Stent Placement:: 2011 Past Psychological History: Anxiety Smoking Status: Current every day smoker Past Alcohol Use History: None Reported Past Drug Use History: Marijuana - Past Family History Father Family Medical History: CVA/TIA Additional Family Medical History / Comment(s): Father is from CVA. Pt states father from "stupidity." Mother Family Medical History: Diabetes Mellitus Additional Family Medical History / Comment(s): Mother from diabetes at the age of 52 yrs. Brother(s) Family Medical History: Diabetes Mellitus Additional Family Medical History / Comment(s): Brother at the age of 32 yrs from type 1 diabetes. Medications and Allergies Home Medications Medication Instructions Recorded Confirmed Type Isosorbide Mononitrate ER [Imdur] 30 mg PO DAILY 09/07/17 03/27/23 History lisinopriL [Zestril] 10 mg PO DAILY 09/07/17 03/27/23 History Aspirin 81 mg PO DAILY #1 chewable 02/27/19 03/27/23 Rx Donepezil [Aricept] 10 mg PO HS 04/11/19 03/27/23 History Temazepam [Restoril] 30 mg PO HS 04/11/19 03/27/23 History amLODIPine [Norvasc] 5 mg PO DAILY 04/11/19 03/27/23 History Atorvastatin [Lipitor] 40 mg PO DAILY 03/22/23 03/27/23 History Citalopram Hydrobromide [CeleXA] 20 mg PO DAILY 03/22/23 03/27/23 History Clopidogrel [Plavix] 75 mg PO DAILY 03/22/23 03/27/23 History Cyclobenzaprine [Flexeril] 10 mg PO BID PRN 03/22/23 03/27/23 History LORazepam [Ativan] 1 mg PO TID 03/22/23 03/27/23 History Olopatadine HCl [Patanol 0.1%] 1 drop BOTH EYES TID 03/22/23 03/27/23 History Pantoprazole Sodium [Protonix] 20 mg PO BID 03/22/23 03/27/23 History oxyCODONE-APAP 10-325MG [Percocet 1 tab PO QID 03/22/23 03/27/23 History 10-325 mg] Allergies Allergy/AdvReac Type Severity Reaction Status Date / Time alprazolam [From Xanax] Allergy Unknown Verified 03/27/23 16:23 codeine Allergy Rash/Hives Verified 03/27/23 16:23 zolpidem [From Ambien] AdvReac "salty" Verified 03/27/23 16:23 taste in mouth, numb mouth
[2023-03-30] MEDS: HEPARIN SODIUM,PORCINE 5,000 UNIT/ML 1 ML VIAL SQ SCH (21:15)
[2023-03-30] MEDS: DONEPEZIL 10 MG TAB PO SCH (21:15)
[2023-03-30] MEDS: ATORVASTATIN 80 MG TAB PO SCH (21:15)
[2023-03-30] MEDS: TEMAZEPAM 15 MG CAP PO SCH (21:16)
[2023-03-31] MEDS: oxyCODONE-APAP 10-325MG 1 EACH TAB PO PRN ×3 (02:54→15:43)
[2023-03-31 06:16] LABS: HCT 38.5 % (39.0-53.0); HGB 12.7 gm/dL (13.0-17.5); MCH 31.1 pg (25.0-35.0); MCHC 32.9 g/dL (31.0-37.0); MCV 94.6 fL (80.0-100.0); Mean Platelet Volume 8.2; Platelet Count 212 k/uL (150-450); RBC 4.07 m/uL (4.30-5.90); RDW 14.1 % (11.5-15.5); WBC 9.7 k/uL (3.8-10.6)
[2023-03-31 06:24] LABS: Chloride 106 mmol/L (98-107)
[2023-03-31 06:26] LABS: African American GFR (CKD) >90 (>60 ml/min/1.73 sqM); Anion Gap 7 mmol/L; Blood Urea Nitrogen 10 mg/dL (9-20); Calcium 9.2 mg/dL (8.4-10.2); Carbon Dioxide 23 mmol/L (22-30); Glucose 89 mg/dL (74-99); Non-African American GFR(CKD) 83 (>60 ml/min/1.73 sqM); Potassium 3.6 mmol/L (3.5-5.1); Sodium 136 mmol/L (137-145)
[2023-03-31] MEDS ORDERED: POTASSIUM CHLORIDE ER 20 MEQ TAB.ER PO SCH (08:00)
[2023-03-31] MEDS: ASPIRIN 81 MG PO SCH (08:15)
[2023-03-31] MEDS: PANTOPRAZOLE 40 MG TABLET PO SCH ×2 (08:15→21:32)
[2023-03-31] MEDS: HEPARIN SODIUM,PORCINE 5,000 UNIT/ML 1 ML VIAL SQ SCH ×2 (08:15→21:32)
[2023-03-31] MEDS: NICOTINE 14MG/24HR PATCH TRANSDERM SCH (08:15)
[2023-03-31] MEDS: TICAGRELOR 90 MG TAB PO SCH ×2 (08:15→21:32)
[2023-03-31] MEDS: ISOSORBIDE MONONITRATE ER 30 MG TAB.ER.24H PO SCH (08:16)
[2023-03-31] MEDS: CITALOPRAM HYDROBROMIDE 20 MG TAB PO SCH (08:16)
[2023-03-31] MEDS: polyethylene glycoL 3350 17 GM POWD.PACK PO SCH (08:16)
[2023-03-31] MEDS: LORATADINE 10 MG TAB PO SCH (08:16)
[2023-03-31] MEDS: KETOTIFEN 0.025% OPHTH DROPS 5 ML BTL BOTH EYES SCH ×2 (08:17→21:33)
--- NOTE | 2023-03-31 08:45 | P.PN ---
Subjective Progress Note Date: 03/31/23 73-year-old male who was seen in the emergency department, on March 27, for possible CVA. He apparently came in with left arm and left leg numbness, and facial droop. His initial NIH score was 12. The patient had a computed tomography scan of the brain, and there was no bleeding, and hence, he received TPA. Currently, he is resting comfortably in the intensive care unit. He seen in room 254. The patient is doing much better, and is almost completely back to normal. He's currently on room air. He is getting saline at 100 mL an hour. Unfortunately, the patient does continue to smoke cigarettes. He has a history of coronary artery disease, with stenting 7, hypertension, hyperlipidemia, and gastroesophageal reflux disease. The patient apparently is also had a myocardial infarction in the past. The patient has been smoking for many years. White count 11.9, with a normal hemoglobin, hematocrit, and platelet count. Sodium 138, potassium 3.7, chlorides 112, CO2 21, BUN 15, and creatinine 1.0. Brain CT showed atrophy with chronic appearing periventricular white matter ischemic changes, which is stable. No acute intracranial process noted. Chest x-ray was normal. Angiography CT, showed mild narrowing, without significant flow limiting stenosis. Progress note dated 03/29/2023. 72-year-old male who was seen in consultation yesterday, for left-sided stroke symptoms. The patient received TPA in the emergency department, and, has had significant improvement. He seen today in room 254. He's on room air. He is receiving saline at 10 mL an hour. The patient will be going down for a follow- up computed tomography scan of the head, without contrast. He has no new comp laints today. Labs today include a white count 10.9, hemoglobin 13.7, hematocrit 43.3, and a normal platelet count. Sodium 137, potassium 3.9, chlorides 111, CO2 18, BUN 12, creatinine 1.01. 03/30 2023, I'm seeing the patient for a follow-up. The patient is post TPA. Neurologically intact. Moving all 4 extremities. Able to swallow. Left-sided weakness has subsided and the patient is going to have an MRI of the brain today. Echocardiogram that was done on 03/28/2023 showed mild impairment of LV function with an ejection fraction of 40-45% and inferior wall hypokinesis. The patient is known to have coronary artery disease. He has undergone multiple coronary stenting. At the same time there is moderately increased LV wall thickening. No evidence of any pericardial effusion. In terms of medication, the patient is currently on aspirin 325 mg by mouth daily. He is taking Daphne f or pain control. He has chronic back pain and he also takes nonsteroidal anti- inflammatory medications. He is on Lipitor high-dose 80 mg by mouth daily. MRI of the brain is to be done today. The BUN 12 with a creatinine of 1. The white cell count is at 10.9 with a hemoglobin 15.7. His LDL cholesterol was was 75. CT angiography that was done on 03/27/2023 showed mild narrowing without any si gnificant flow limitation of the bilateral internal carotid arteries. No other acute vascular abnormalities noted. There is condition is stable for now. Blood pressure is 138/78. On today's examination, the patient continues to have some residual left-sided weakness in the left arm slightly weaker compared to the right. No facial asymmetry. Adequate swallow. On 03/31/2023, patient is being seen for a follow-up. Neurologically stable. Some improvement in the left lower and upper extremity weakness. MRI of the brain was done and the patient was found to have an acute/subacute CVA involving the right thalamus and left parietal/occipital region. Nonspecific white matter changes were also seen. Meanwhile, the carotid Dopplers showed 50-70% carotid artery stenosis bilaterally. Based on those findings, the patient is going to need a ISRAEL to rule out a possibility of embolic phenomena. At the same time, Mr. surgery was consulted and the patient is being contemplated for possibility of a carotid endarterectomy on the right. The labs are all stable. White cell cause of 9.7, hemoglobin was 12.7, normal renal function. Electrolytes all within normal limits. He remains on aspirin 81 mg by mouth daily and heparin subcu. He is also on Brilinta 90 mg by mouth twice a day. Objective - Vital Signs Vital signs: Vital Signs Temp 98.3 F 03/31/23 02:00 Pulse 82 03/31/23 02:00 Resp 16 03/31/23 02:00 BP 132/76 03/31/23 02:00 Pulse Ox 96 03/31/23 02:00 FiO2 21 03/30/23 08:57 Intake & Output 03/30/23 03/31/23 03/31/23 18:59 06:59 18:59 Intake Total 300 Output Total 400 Balance -100 Intake: Oral 300 Output: Urine 400 Other: Voiding Method Urinal Urinal # Voids 1 6 # Bowel Movements 1 - Exam No acute distress, oriented 3. Currently on room air. HEENT examination is grossly unremarkable. Mucous membranes are moist. No oral lesions. Neck supple. Full range of motion. No adenopathy thyromegaly or neck vein distention. Cardiovascular examination reveals regular rhythm rate. S1-S2 normal. No S3 or S4. No discernible murmur noted. Lungs reveal clear breath sounds. Breath sounds are equal bilaterally. No adventitious lung sounds including wheezes rhonchi or crackles. Abdomen soft bowel sounds are heard. No masses or tenderness. Extremities are intact. No cyanosis clubbing or edema. Skin is without rash or lesion. Neurologic examination is brief but nonfocal., There is improvement in motor function in the left upper extremity. I think the motor functions improved compared to yesterday. No new onset focal neurological deficits. No facial asymmetry. Pupils are equal and reactive to light. - Labs CBC & Chem 7: 03/31/23 05:43 03/31/23 05:43 Labs: Abnormal Lab Results - Last 24 Hours (Table) 03/31/23 03/31/23 Range/Units 05:43 05:43 RBC 4.07 L (4.30-5.90) m/uL Hgb 12.7 L (13.0-17.5) gm/dL Hct 38.5 L (39.0-53.0) % Sodium 136 L (137-145) mmol/L Assessment and Plan Plan: Acute right-sided CVA, with left-sided weakness, and left facial droop, S/P TPA, with near-complete resolution of the patient's symptoms. The patient continues to have some minimal residual left-sided weakness on today's examination. Symptoms are stable on today's evaluation of the patient has no new onset neurological deficit. Follow-up CAT scan of the brain was done on 03/29/2023 showed stable chronic white matter ischemic changes without any acute bleeds. No evidence of any thrombotic stroke either. MRIs showing a right thalamic and left occipital acute/subacute CVA and the carotid Doppler that shown 50-70% stenotic changes bilaterally. The patient is going to undergo a ISRAEL today, he is also being given by vascular surgery. CAD, with multiple previous stents. The patient is a preserved LV function, moderate LVH Hypertension. Hyperlipidemia. Previous myocardial infarction. Ongoing tobacco use with nicotine addiction. Gastroesophageal reflux disease. Plan: MRI of the brain was noted from yesterday and the patient is going to undergo a ISRAEL Continue aspirin and Brilinta Continue Lipitor Echo was noted Vascular surgery evaluation The patient will need physical therapy We'll continue to follow
--- NOTE | 2023-03-31 09:50 | P.PN ---
Subjective Progress Note Date: 03/31/23 Principal diagnosis: Carotid stenosis Patient seen and examined today as a follow-up. He remains in the ICU. He is scheduled today to undergo ISRAEL with cardiology. He is without any new complaints. No new focal deficits. Objective - Vital Signs Vital signs: Vital Signs Temp 98.3 F 03/31/23 02:00 Pulse 82 03/31/23 02:00 Resp 16 03/31/23 02:00 BP 132/76 03/31/23 02:00 Pulse Ox 96 03/31/23 02:00 FiO2 21 03/30/23 08:57 Intake & Output 03/30/23 03/31/23 03/31/23 18:59 06:59 18:59 Intake Total 300 Output Total 400 Balance -100 Intake: Oral 300 Output: Urine 400 Other: Voiding Method Urinal Urinal # Voids 1 6 # Bowel Movements 1 - Exam General appearance: The patient is alert, oriented, appears in no acute distress. HET: Head is normocephalic and atraumatic. Pupils are equal and reactive. Neck: Supple. Heart: Regular. Lungs: Equal expansion, normal respiratory effort. Abdomen: Soft, nontender, nondistended. Extremities: Normal skin color and turgor. Neurological: No focal deficits. Strength and sensation are grossly intact. - Labs CBC & Chem 7: 03/31/23 05:43 03/31/23 05:43 Labs: Abnormal Lab Results - Last 24 Hours (Table) 03/31/23 03/31/23 Range/Units 05:43 05:43 RBC 4.07 L (4.30-5.90) m/uL Hgb 12.7 L (13.0-17.5) gm/dL Hct 38.5 L (39.0-53.0) % Sodium 136 L (137-145) mmol/L Assessment and Plan Assessment: 1. Acute ischemic stroke involving right thalamus left parietal occipital, likely embolic 2. Symptomatic right ICA stenosis. CTA and carotid duplex personally reviewed by Dr. Mehta who felt that right internal carotid artery stenosis was closer to over 50% narrowed on CT angiogram head and neck. 3. History of multiple TIAs status post left carotid endarterectomy approximately 7 years ago 4. Coronary artery disease status post multiple stents 5. Hypertension 6. Hyperlipidemia 7. Tobacco abuse Plan: 1. Continue with recommendations from neurology 2. Patient scheduled for ISRAEL today with cardiology 3. Patient tentatively scheduled for right internal carotid artery endarterectomy on 04/03/2023. Patient will need both medical and cardiac clearance prior to surgery. Recommend doing this as inpatient. 4. Continue aspirin, Brilinta, and Atorvastatin Thank you for this consultation, we will continue to follow. The impression and plan of care has been dictated as directed. I performed a history and examination of this patient, discussed the same with the dictator. I agree with the dictator's note ,documented as a scribe. Any additional findings or plans will be noted.
[2023-03-31] MEDS ORDERED: MIDAZOLAM 1 MG/ML 5 ML VIAL IV STA (09:53)
[2023-03-31] MEDS ORDERED: fentaNYL (PF) 50 MCG/ML 2 ML AMP IVP STA (09:54)
--- NOTE | 2023-03-31 11:45 | P.PCN ---
Date of Procedure: 03/31/23 Description of Procedure: ISRAEL: After expanding the procedure the patient as well as the risk and complications his blood pressure, heart rate O2 saturation was monitored. He received 3 mg of intravenous Versed and 50 g of intravenous fentanyl. The throat was sprayed with Cetacaine. Multiple attempts to advance the probe were unsuccessful, the patient was not cooperative and uncomfortable. In view of that the procedure was stopped and the plan is to do the procedure tomorrow with anesthesia support.
--- NOTE | 2023-03-31 16:53 | P.PN ---
Subjective Progress Note Date: 03/31/23 I am following-up seeing the patient and he feels about the same. Denies of any new neurological issues. He went for ISRAEL but could not tolerate procedure therefore was not performed. Objective - Vital Signs Vital signs: Vital Signs Temp 98 F 03/31/23 14:00 Pulse 77 03/31/23 15:00 Resp 15 03/31/23 15:00 BP 127/85 03/31/23 15:00 Pulse Ox 97 03/31/23 15:00 FiO2 21 03/30/23 08:57 Intake & Output 03/30/23 03/31/23 03/31/23 18:59 06:59 18:59 Intake Total 300 Output Total 400 Balance -100 Intake: Oral 300 Output: Urine 400 Other: Voiding Method Urinal Urinal Urinal # Voids 1 6 1 # Bowel Movements 1 - Exam GENERAL: The patient is lying in bed and is not in acute distress. NEUROLOGICAL: Higher mental function: The patient is awake, alert, oriented to self, place and time. Patient is following commands. No aphasia and no neglect. Cranial nerves: The pupils are round, equal and reactive to light. Visual stevens are full to confrontation throughout. Extraocular movement is intact no nystagmus is noted. Facial sensation is normal to touch throughout. The facial strength is normal throughout. Tongue is midline and moved [id number] without any difficulty. No dysarthria is noted. Motor: The strength is limited on the left upper and lower extremity because of left shoulder pain and hip pain. His strength was at least 4+ on left side. Bilateral hand therapist rrt are 5/5. Otherwise, rest are 5/5. . Normal tone and bulk. Cerebellum: Normal finger to nose bilaterally. Sensation: Stated has left sided numbness. SOME OF THE WORK-UP DURING THIS HOSPITAL VISIT CONSISTED OF: Lipid panel: TG 120, Choles 135, LDL 75 and HDL 35 HbA1c: 6.1 MRI Brain is reported as acute/subacute CVA involving right thalamus/left parietal occipital region. Correlate for embolic phenomenon. Nonspecific white matter changes, likely secondary to small vessel ischemic disease. I personally reviewed it and agree with right thalamus but on left felt more temporal- occipital region. CTA head and neck reported as Mild narrowing without significant flow-limiting stenosis bilateral internal carotid artery. Normal [place]. 2D echo: Is reported as left ventricular ef 40-45% with inferior hypokinesis. Moderate increased left ventricular wall thickness.Moderately increased left atrial volume. Carotid duplex: It is reported as 50-69% diameter reduction suggested bilaterally. - Labs CBC & Chem 7: 03/31/23 05:43 03/31/23 05:43 Labs: Abnormal Lab Results - Last 24 Hours (Table) 03/31/23 03/31/23 Range/Units 05:43 05:43 RBC 4.07 L (4.30-5.90) m/uL Hgb 12.7 L (13.0-17.5) gm/dL Hct 38.5 L (39.0-53.0) % Sodium 136 L (137-145) mmol/L Assessment and Plan Assessment: This is a 72 y/o gentleman who presented with dizziness, headache, not respon ding. He received IV tpa because of stroke-like symptoms. On MRI he has acute ischemic stroke. Acute ischemic stroke involving right thalamus and I felt more left temporal- occipital (was reported by radiologist as parietal-occipital). Is embolic in nature. Unsure if cardiembolic vs artery to artery post IV tpa Bilateral carotid stenosis 50-69% stenosis on duplex (discordant between duplex and CTA. CTA show mild narrowing). Patient stated in past was told has moderate to significant stenosis of right in past. History of multiple TIA's in past History of CA s/p stent History of LA Hypertension Hyperlipidemia X-tobacco use Plan: He was on ASA and Plavix at home. Since he failed those medications, I stopped Plavix and started him on Brilinta 90mg bid and continued ASA but low dose of 81mg daily. Continue Lipitor 80mg daily. Cardiology is consulted. They attempted ISRAEL but he could not tolerate it. Recommend event monitor for 30 days if work-up is neative. Vascular surgery team is consulted for carotid stenosis. They recommended right internal carotid endarterectomy on 04/03/2023. I spoke with Cardiology attending (Dr. Avery) early in the morning and we agreed that if cardiac work-up is negative (including event monitor) then pursue with vascular intervention since it is an invasive procedure and there is risk for procedure. Also his stroke is bilateral hemispheric stroke and just only explained by right ICA. Continue neuro checks Cardiac monitoring. PT, OT and [facility] are consulted. Will defer the rest of medical management to primary team. For DVT prophylaxis: On subq heparin 5000U every 12 hours. The plan is discussed with patient and cardiology team. Time with Patient: Less than 30
--- NOTE | 2023-03-31 17:27 | P.PN ---
Progress Note - Text Progress Note Date: 03/31/23 Chief Complaint: Left-sided weakness This is a 72-year-old patient who follows with Dr. Felix. History of cardiac arrest. Tonic-clonic seizure. medical conditions include coronary artery disease with stent, GERD, hyperlipidemia, essential hypertension primary osteoar thritis. History of head injury. Hepatitis C. Arthritis. Patient yesterday sent down to eat pizza. Suddenly felt his vision was narrowed. Started feeling off. Left arm became weak. Speech became slurred. He was brought into the ER. In the ER there was left-sided weakness. Facial droop. Given TPA. He was admitted to the ICU and it was improvement in his neurological status. Today feels better. Speech is improved. Significant improvement of the left side. Able to eat his lunch. Seen by neurology. Patient does get charley horses on walking. Sometimes numbness in his feet. Has decreased vision in the left side of the visual field. March 29: ICU. Sitting at the edge of the bed. Eating his lunch. Feeling better. Weakness left side nearly resolved. Speech back to normal. Blood pressure good. Repeat CT brain today without contrast. Unremarkable. March 30: ICU. Sitting up edge of bed eating lunch. As per the patient and the doctor's ex- and daughter both felt to speech is not back to normal. Very slight weakness in the left arm. MRI of the brain did confirm stroke in 2 different areas. ISRAEL ordered. Neto started by neurology. March 31: ICU. Attempted ISRAEL today.) Restless. Postponed for tomorrow with anesthesia. Neurologically patient nearly blacked his baseline. Restless planning for right carotid surgery this admission. Patient is medically stable to proceed for the same. Discussed with patient. Active Medications Aspirin (Aspirin 81 Mg) 81 mg PO DAILY [facility] Last Admin: 03/31/23 08:15 Dose: 81 mg Atorvastatin Calcium (Atorvastatin 80 Mg Tab) 80 mg PO HS [facility] Last Admin: 03/30/23 21:15 Dose: 80 mg Citalopram Hydrobromide (Citalopram Hydrobromide 20 Mg Tab) 20 mg PO DAILY [facility] Last Admin: 03/31/23 08:16 Dose: 20 mg Cyclobenzaprine HCl (Cyclobenzaprine 10 Mg Tab) 10 mg PO BID PRN PRN Reason: Muscle Spasm Last Admin: 03/30/23 08:24 Dose: 10 mg Donepezil HCl (Donepezil 10 Mg Tab) 10 mg PO HS [facility] Last Admin: 03/30/23 21:15 Dose: 10 mg Heparin Sodium (Porcine) (Heparin Sodium,Porcine 5,000 Unit/Ml 1 Ml Vial) 5,000 unit SQ Q12HR [facility] Last Admin: 03/31/23 08:15 Dose: 5,000 unit Isosorbide Mononitrate (Isosorbide Mononitrate Er 30 Mg Tab.Er.24h) 30 mg PO DAILY [facility] Last Admin: 03/31/23 08:16 Dose: 30 mg Ketotifen Fumarate (Ketotifen 0.025% Ophth Drops 5 Ml Btl) 1 drops BOTH EYES BID [facility] Last Admin: 03/31/23 08:17 Dose: 1 drops Loratadine (Loratadine 10 Mg Tab) 10 mg PO DAILY [facility] Last Admin: 03/31/23 08:16 Dose: 10 mg Lorazepam (Lorazepam 1 Mg Tab) 1 mg PO Q8HR PRN PRN Reason: Anxiety Last Admin: 03/29/23 01:21 Dose: 1 mg Miscellaneous Information (Potassium Replacement Protocol 1 Each Misc) 1 each MISCELLANE DAILY PRN; Protocol PRN Reason: Per Protocol Naloxone HCl (Naloxone 0.4 Mg/Ml 1 Ml Vial) 0.2 mg IV Q2M PRN PRN Reason: Opioid Reversal Nicotine (Nicotine 14mg/24hr Patch) 1 patch TRANSDERM DAILY [facility] Last Admin: 03/31/23 08:15 Dose: 1 patch Oxycodone/Acetaminophen (Oxycodone-Apap 10-325mg 1 Each Tab) 1 each PO Q6HR PRN PRN Reason: Pain Last Admin: 03/31/23 15:43 Dose: 1 each Pantoprazole Sodium (Pantoprazole 40 Mg Tablet) 40 mg PO BID [facility] Last Admin: 03/31/23 08:15 Dose: 40 mg Polyethylene Glycol (Polyethylene Glycol 3350 17 Gm Powd.Pack) 17 gm PO DAILY [facility] Last Admin: 03/31/23 08:16 Dose: Not Given Temazepam (Temazepam 15 Mg Cap) 30 mg PO HS [facility] Last Admin: 03/30/23 21:16 Dose: 30 mg Ticagrelor (Ticagrelor 90 Mg Tab) 90 mg PO BID [facility] Last Admin: 03/31/23 08:15 Dose: 90 mg Past medical history to include: Concussion, possible tonic-clonic seizure, coronary artery disease with stent, GERD, hyperlipidemia, essential hypertension, primary osteoarthritis, nicotine dependence.. Social history: Lives alone. Smokes a pack a day-several years. Denies alcohol. Physical examination: VITAL SIGNS: 98, 77, 15, 127/85, 97% room air GENERAL: Laying in bed, comfortable EYES: Pupils equal. Conjunctiva normal. HEENT: External appearance of nose and ears normal, oral cavity grossly normal. NECK: JVD not raised; masses not palpable. HEART: First and second heart sounds are normal; no edema. Decreased dorsalis pedis. LUNGS: Respiratory rate normal; decreased breath sounds. ABDOMEN: Soft, nontender, liver spleen not palpable, no masses palpable. PSYCH: Alert and oriented x3; mood and affect anxious. NEUROLOGICAL: Mouth slightly pulled over to the left, left arm power 4/5. Abnormal sensation left side of the face. Speech very slightly slow. MUSCULAR skeletal: Evidence of OA. INVESTIGATIONS, reviewed in the clinical context: March 31: White count 9.7 hemoglobin 12.7 potassium 3.6 creatinine 0.9 to Carotid Doppler: 50-69% reduction suggested bilaterally. MRI brain without contrast: Acute/subacute CVA involving the right thalamus and the left parietal occipital region. Some nonspecific) changes. March 29: White count 10.9 hemoglobin 13.7 potassium 3.9 creatinine 1.01 LDL 75 March 28: White count 11.9 hemoglobin 14.1 platelets 238 sodium 138 potassium 3.7 BUN 15 creatinine 1.0 LDL 75 EKG tracing personally reviewed by me-normal sinus rhythm. PVC. Chest x-ray film personally reviewed by me-portable. Underpenetrated. Some cardiomegaly. CT brain: Without contrast: Atrophy with chronic-appearing white matter ischemic changes. CT angiogram to neck: Mild narrowing without significant evidence for close limiting stenosis bilateral internal carotid artery origins. Assessment and plan: -Acute stroke felt to be embolic: Involving the right thalamus in the left rectal/occipital region. Status post TPA. Neurology following. Aspirin. Brillinta ISRAEL rescheduled for tomorrow -Right carotid stenosis. Seen by Dr. Mehta from vascular. Right cataract and endarterectomy scheduled for April 03. -Coronary artery disease with stent Aspirin. -GERD PPI -Hyperlipidemia Increase Lipitor to 80 mg daily at bedtime. -Essential hypertension Follow blood pressure closely -Primary osteoarthritis Percocet when necessary -Chronic nicotine dependence patient cigarette smoker Nicotine patch Patient medically stable for right carried endarterectomy. ISRAEL rescheduled for tomorrow. Discussed with patient. Past Medical History Past Medical History: Coronary Artery Disease (CAD), CVA/TIA, GERD/Reflux, Hyperlipidemia, Hypertension, Liver Disease, Myocardial Infarction ([place]), Vascular Disorder Additional Past Medical History / Comment(s): Patient states he was admitted to the hospital January after a fall with head injury/new onset seizures and was hospitalized at [facility] in [place]. He was on life support and was extubated and had one more seizure. 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 Patient states he has Hepatitis C. Last Myocardial Infarction Date:: 2011 History of Any Multi-Drug Resistant Organisms: None Reported Past Surgical History: Heart Catheterization With Stent, Orthopedic Surgery Additional Past Surgical History / Comment(s): PCI with a total of 7 stents per pt, L caratid endartectomy, L shoulder surgery for injury, R knee/R hip/R elbow/R wrist ligament/tendon type surgeries injuries-has pins in hand, colonoscopy. Past Anesthesia/Blood Transfusion Reactions: No Reported Reaction Date of Last Stent Placement:: 2011 Past Psychological History: Anxiety Smoking Status: Current every day smoker Past Alcohol Use History: None Reported Past Drug Use History: Marijuana - Past Family History Father Family Medical History: CVA/TIA Additional Family Medical History / Comment(s): Father is from CVA. Pt states father from "stupidity." Mother Family Medical History: Diabetes Mellitus Additional Family Medical History / Comment(s): Mother from diabetes at the age of 52 yrs. Brother(s) Family Medical History: Diabetes Mellitus Additional Family Medical History / Comment(s): Brother at the age of 32 yrs from type 1 diabetes. Medications and Allergies Home Medications Medication Instructions Recorded Confirmed Type Isosorbide Mononitrate ER [Imdur] 30 mg PO DAILY 09/07/17 03/27/23 History lisinopriL [Zestril] 10 mg PO DAILY 09/07/17 03/27/23 History Aspirin 81 mg PO DAILY #1 chewable 02/27/19 03/27/23 Rx Donepezil [Aricept] 10 mg PO HS 04/11/19 03/27/23 History Temazepam [Restoril] 30 mg PO HS 04/11/19 03/27/23 History amLODIPine [Norvasc] 5 mg PO DAILY 04/11/19 03/27/23 History Atorvastatin [Lipitor] 40 mg PO DAILY 03/22/23 03/27/23 History Citalopram Hydrobromide [CeleXA] 20 mg PO DAILY 03/22/23 03/27/23 History Clopidogrel [Plavix] 75 mg PO DAILY 03/22/23 03/27/23 History Cyclobenzaprine [Flexeril] 10 mg PO BID PRN 03/22/23 03/27/23 History LORazepam [Ativan] 1 mg PO TID 03/22/23 03/27/23 History Olopatadine HCl [Patanol 0.1%] 1 drop BOTH EYES TID 03/22/23 03/27/23 History Pantoprazole Sodium [Protonix] 20 mg PO BID 03/22/23 03/27/23 History oxyCODONE-APAP 10-325MG [Percocet 1 tab PO QID 03/22/23 03/27/23 History 10-325 mg] Allergies Allergy/AdvReac Type Severity Reaction Status Date / Time alprazolam [From Xanax] Allergy Unknown Verified 03/27/23 16:23 codeine Allergy Rash/Hives Verified 03/27/23 16:23 zolpidem [From Ambien] AdvReac "salty" Verified 03/27/23 16:23 taste in mouth, numb mouth
[2023-03-31] MEDS: ATORVASTATIN 80 MG TAB PO SCH (21:32)
[2023-03-31] MEDS: DONEPEZIL 10 MG TAB PO SCH (21:32)
[2023-03-31] MEDS: TEMAZEPAM 15 MG CAP PO SCH (21:32)
[2023-04-01] MEDS: oxyCODONE-APAP 10-325MG 1 EACH TAB PO PRN ×4 (03:02→21:52)
--- NOTE | 2023-04-01 09:04 | PN ---
PROGRESS NOTE Mr. Clark is a gentleman, who has had an embolic stroke and received thrombolytic therapy. His stroke is in both hemispheres and MRI report suggests that this is an embolic phenomena. We have not seen any atrial fibrillation. I am suggesting that we will look at the transesophageal echo and if there is no thrombus or shunt, we should do a 30-day event monitor to look for atrial fibrillation. This is a presentation of a cryptogenic stroke. The patient's carotid disease is not significant. It is moderate and he has had previous left carotid endarterectomy 7 years ago and the right carotid disease is less than 70%, does not appear to be significant and I am not sure if it is a culprit lesion. Clinical picture suggests that this is more of an embolic stroke rather than a right carotid related stroke. Given this, I would not proceed with carotid surgery, instead we will do a 30-day event monitor after transesophageal echo and if that is negative, we can then consider right carotid endarterectomy. I discussed my thoughts in detail with the patient and also talked to Dr. Bejarano. The patient will have transesophageal echo today. I also reviewed the Doppler report to look at the velocity on the right internal carotid, the velocity and the ratio in the right internal carotid is also not very significant. Vertebral flow is antegrade direction bilaterally. PHYSICAL EXAMINATION: NECK: No JVD. HEART: Revealed that he is in sinus rhythm. S1, S2 heard normally. Short systolic murmur. LUNGS: Clear. ABDOMEN: Unchanged. LOWER EXTREMITIES: Unchanged. Neurological assessment was not performed, but he has some improvement in left-sided motor function. MMODL / IJN: [id number] /
[2023-04-01] MEDS: NICOTINE 14MG/24HR PATCH TRANSDERM SCH (09:17)
[2023-04-01] MEDS: polyethylene glycoL 3350 17 GM POWD.PACK PO SCH (09:17)
[2023-04-01] MEDS: CITALOPRAM HYDROBROMIDE 20 MG TAB PO SCH (09:18)
[2023-04-01] MEDS: HEPARIN SODIUM,PORCINE 5,000 UNIT/ML 1 ML VIAL SQ SCH ×2 (09:18→20:24)
[2023-04-01] MEDS: ISOSORBIDE MONONITRATE ER 30 MG TAB.ER.24H PO SCH (09:18)
[2023-04-01] MEDS: TICAGRELOR 90 MG TAB PO SCH ×2 (09:18→20:23)
[2023-04-01] MEDS: PANTOPRAZOLE 40 MG TABLET PO SCH ×2 (09:19→20:22)
[2023-04-01] MEDS: ASPIRIN 81 MG PO SCH (09:19)
[2023-04-01] MEDS: CYCLOBENZAPRINE 10 MG TAB PO PRN (09:19)
[2023-04-01] MEDS: LORATADINE 10 MG TAB PO SCH (09:19)
[2023-04-01] MEDS: KETOTIFEN 0.025% OPHTH DROPS 5 ML BTL BOTH EYES SCH ×2 (09:21→20:23)
--- NOTE | 2023-04-01 11:55 | P.PN ---
Subjective Progress Note Date: 04/01/23 I will follow up with the patient at the he states that he's doing well today. He denies of any new neurological issues. Patient is scheduled for an transesophageal echocardiogram today. Objective - Vital Signs Vital signs: Vital Signs Temp 98.4 F 04/01/23 08:00 Pulse 77 04/01/23 08:00 Resp 18 04/01/23 08:00 BP 151/88 04/01/23 08:00 Pulse Ox 97 04/01/23 08:00 FiO2 21 03/30/23 08:57 Intake & Output 03/31/23 04/01/23 04/01/23 18:59 06:59 18:59 Intake Total 500 Output Total 700 Balance -200 Intake: Oral 500 Output: Urine 700 Other: Voiding Method Urinal Urinal # Voids 1 1 1 - Exam GENERAL: The patient is lying in bed and is not in acute distress. NEUROLOGICAL: Higher mental function: The patient is awake, alert, oriented to self, place and time. Patient is following commands. No aphasia and no neglect. Cranial nerves: The pupils are round, equal and reactive to light. Visual stevens are full to confrontation throughout. Extraocular movement is intact no nystagmus is noted. Facial sensation is normal to touch throughout. The facial strength is normal throughout. Tongue is midline and moved [id number] without any difficulty. No dysarthria is noted. Motor: The strength is limited on the left upper and lower extremity because of left shoulder pain and hip pain. His strength was at least 4+ on left side. Bilateral hand sexual assault counsellor are 5/5. Otherwise, rest are 5/5. . Normal tone and bulk. Cerebellum: Normal finger to nose bilaterally. Sensation: Stated has left sided numbness. SOME OF THE WORK-UP DURING THIS HOSPITAL VISIT CONSISTED OF: Lipid panel: TG 120, Choles 135, LDL 75 and HDL 35 HbA1c: 6.1 MRI Brain is reported as acute/subacute CVA involving right thalamus/left parietal occipital region. Correlate for embolic phenomenon. Nonspecific white matter changes, likely secondary to small vessel ischemic disease. I personally reviewed it and agree with right thalamus but on left felt more temporal- occipital region. CTA head and neck reported as Mild narrowing without significant flow-limiting stenosis bilateral internal carotid artery. Normal [place]. 2D echo: Is reported as left ventricular ef 40-45% with inferior hypokinesis. Moderate increased left ventricular wall thickness.Moderately increased left atrial volume. Carotid duplex: It is reported as 50-69% diameter reduction suggested bilaterally. - Labs CBC & Chem 7: 03/31/23 05:43 03/31/23 05:43 Assessment and Plan Assessment: This is a 72 y/o gentleman who presented with dizziness, headache, not r esponding. He received IV tpa because of stroke-like symptoms. On MRI he has acute ischemic stroke. Acute ischemic stroke post IV tpa. Stroke involving right thalamus and I felt more left temporal-occipital (was reported by radiologist as parietal- occipital). Is embolic in nature. Unsure if cardiembolic vs artery to artery Bilateral carotid stenosis 50-69% stenosis on duplex (discordant between duplex and CTA. CTA show mild narrowing). Patient stated in past was told has moderate to significant stenosis of right in past. History of multiple TIA's in past History of CA s/p stent History of MD Hypertension Hyperlipidemia X-tobacco use Plan: He was on ASA and Plavix at home. Since he failed those medications, I stopped Plavix and started him on Brilinta 90mg bid and continued ASA but low dose of 81mg daily. Continue Lipitor 80mg daily. Cardiology is consulted. They attempted ISRAEL yesterday but he could not tolerate it. He is scheduled for ISRAEL today with anesthesia. Recommend event monitor for 30 days if work-up is negative. Vascular surgery team is consulted for carotid stenosis. They recommended right internal carotid endarterectomy on 04/03/2023. Patient states that if the transesophageal echocardiogram is negative would like to pursue with the intervention of the right carotid during this admission. 5 the patient I cannot rule out cardioembolic even if the ISRAEL is negative but he stated that he understands and but would like to still pursue with intervention of carotid. Continue neuro checks Cardiac monitoring. PT, OT and FIELD REVIEWER are consulted. Will defer the rest of medical management to primary team. For DVT prophylaxis: On subq heparin 5000U every 12 hours. The plan is discussed with patient and vascular surgery N.P. Time with Patient: Less than 30
[2023-04-01] MEDS ORDERED: MIDAZOLAM 2 MG/2 ML VIAL ONE (12:08)
[2023-04-01] MEDS ORDERED: fentaNYL (PF) 50 MCG/ML 2 ML AMP ONE (12:08)
[2023-04-01] MEDS ORDERED: PROPOFOL 10 MG/ML 20 ML VIAL IV ONE (12:08)
[2023-04-01] MEDS ORDERED: LIDOCAINE 2% INJ 20 MG/ML (2 ML VIAL) ONE (12:08)
--- NOTE | 2023-04-01 12:11 | P.PN ---
Subjective Progress Note Date: 04/01/23 73-year-old male who was seen in the emergency department, on March 27, for possible CVA. He apparently came in with left arm and left leg numbness, and facial droop. His initial NIH score was 12. The patient had a computed tomography scan of the brain, and there was no bleeding, and hence, he received TPA. Currently, he is resting comfortably in the intensive care unit. He seen in room 254. The patient is doing much better, and is almost completely back to normal. He's currently on room air. He is getting saline at 100 mL an hour. Unfortunately, the patient does continue to smoke cigarettes. He has a history of coronary artery disease, with stenting 7, hypertension, hyperlipidemia, and gastroesophageal reflux disease. The patient apparently is also had a myocardial infarction in the past. The patient has been smoking for many years. White count 11.9, with a normal hemoglobin, hematocrit, and platelet count. Sodium 138, potassium 3.7, chlorides 112, CO2 21, BUN 15, and creatinine 1.0. Brain CT showed atrophy with chronic appearing periventricular white matter ischemic changes, which is stable. No acute intracranial process noted. Chest x-ray was normal. Angiography CT, showed mild narrowing, without significant flow limiting stenosis. Progress note dated 03/29/2023. 72-year-old male who was seen in consultation yesterday, for left-sided stroke symptoms. The patient received TPA in the emergency department, and, has had significant improvement. He seen today in room 254. He's on room air. He is receiving saline at 10 mL an hour. The patient will be going down for a follow- up computed tomography scan of the head, without contrast. He has no new comp laints today. Labs today include a white count 10.9, hemoglobin 13.7, hematocrit 43.3, and a normal platelet count. Sodium 137, potassium 3.9, chlorides 111, CO2 18, BUN 12, creatinine 1.01. 03/30 2023, I'm seeing the patient for a follow-up. The patient is post TPA. Neurologically intact. Moving all 4 extremities. Able to swallow. Left-sided weakness has subsided and the patient is going to have an MRI of the brain today. Echocardiogram that was done on 03/28/2023 showed mild impairment of LV function with an ejection fraction of 40-45% and inferior wall hypokinesis. The patient is known to have coronary artery disease. He has undergone multiple coronary stenting. At the same time there is moderately increased LV wall thickening. No evidence of any pericardial effusion. In terms of medication, the patient is currently on aspirin 325 mg by mouth daily. He is taking [place] f or pain control. He has chronic back pain and he also takes nonsteroidal anti- inflammatory medications. He is on Lipitor high-dose 80 mg by mouth daily. MRI of the brain is to be done today. The BUN 12 with a creatinine of 1. The white cell count is at 10.9 with a hemoglobin 15.7. His LDL cholesterol was was 75. CT angiography that was done on 03/27/2023 showed mild narrowing without any si gnificant flow limitation of the bilateral internal carotid arteries. No other acute vascular abnormalities noted. There is condition is stable for now. Blood pressure is 138/78. On today's examination, the patient continues to have some residual left-sided weakness in the left arm slightly weaker compared to the right. No facial asymmetry. Adequate swallow. On 03/31/2023, patient is being seen for a follow-up. Neurologically stable. Some improvement in the left lower and upper extremity weakness. MRI of the brain was done and the patient was found to have an acute/subacute CVA involving the right thalamus and left parietal/occipital region. Nonspecific white matter changes were also seen. Meanwhile, the carotid Dopplers showed 50-70% carotid artery stenosis bilaterally. Based on those findings, the patient is going to need a ISRAEL to rule out a possibility of embolic phenomena. At the same time, Mr. surgery was consulted and the patient is being contemplated for possibility of a carotid endarterectomy on the right. The labs are all stable. White cell cause of 9.7, hemoglobin was 12.7, normal renal function. Electrolytes all within normal limits. He remains on aspirin 81 mg by mouth daily and heparin subcu. He is also on Brilinta 90 mg by mouth twice a day. 04/01/2023, the patient is neurologically stable and the patient had a failed ISRAEL yesterday and the procedure is to be completed today. No new complaints. No new labs. The patient remains on aspirin and Brilinta for now. The patient was transferred out of the intensive care unit yesterday. Objective - Vital Signs Vital signs: Vital Signs Temp 98.4 F 04/01/23 08:00 Pulse 77 04/01/23 08:00 Resp 18 04/01/23 08:00 BP 151/88 04/01/23 08:00 Pulse Ox 97 04/01/23 08:00 FiO2 21 03/30/23 08:57 Intake & Output 03/31/23 04/01/23 04/01/23 18:59 06:59 18:59 Intake Total 500 Output Total 700 Balance -200 Intake: Oral 500 Output: Urine 700 Other: Voiding Method Urinal Urinal # Voids 1 1 1 - Exam No acute distress, oriented 3. Currently on room air. HEENT examination is grossly unremarkable. Mucous membranes are moist. No oral lesions. Neck supple. Full range of motion. No adenopathy thyromegaly or neck vein distention. Cardiovascular examination reveals regular rhythm rate. S1-S2 normal. No S3 or S4. No discernible murmur noted. Lungs reveal clear breath sounds. Breath sounds are equal bilaterally. No adventitious lung sounds including wheezes rhonchi or crackles. Abdomen soft bowel sounds are heard. No masses or tenderness. Extremities are intact. No cyanosis clubbing or edema. Skin is without rash or lesion. Neurologic examination is brief but nonfocal., There is improvement in motor function in the left upper extremity. I think the motor functions improved compared to yesterday. No new onset focal neurological deficits. No facial asymmetry. Pupils are equal and reactive to light. - Labs CBC & Chem 7: 03/31/23 05:43 03/31/23 05:43 Assessment and Plan Plan: Acute right-sided CVA, with left-sided weakness, and left facial droop, S/P TPA, with near-complete resolution of the patient's symptoms. The patient continues to have some minimal residual left-sided weakness on today's examination. Symptoms are stable on today's evaluation of the patient has no new onset neurological deficit. Follow-up CAT scan of the brain was done on 03/29/2023 showed stable chronic white matter ischemic changes without any acute bleeds. No evidence of any thrombotic stroke either. MRIs showing a right thalamic and left occipital acute/subacute CVA and the carotid Doppler that shown 50-70% stenotic changes bilaterally. The patient is going to undergo a ISRAEL today, he is also being given by vascular surgery. CAD, with multiple previous stents. The patient is a preserved LV function, moderate LVH Hypertension. Hyperlipidemia. Previous myocardial infarction. Ongoing tobacco use with nicotine addiction. Gastroesophageal reflux disease. Plan: ISRAEL to be done today MRI of the brain was noted from yesterday and the patient may possibly have an embolic condition underlying his multiple CVAs Continue aspirin and Brilinta Continue Lipitor Echo was noted Vascular surgery evaluation The patient will need physical therapy We'll continue to follow
[2023-04-01] MEDS ORDERED: LACTATED RINGERS 1,000 ML IV ONE (12:14)
[2023-04-01] MEDS ORDERED: BENZOCAINE SPRAY 1 CAN MUCOUS MEM ONE (12:15)
--- NOTE | 2023-04-01 13:12 | P.PCN ---
Date of Procedure: 04/01/23 Description of Procedure: Indication: Cardiac source for stroke Procedure Description: After explaining the procedure to the patient, it's risk and complications, blood pressure, heart rate and O2 saturation were monitored. The throat was sprayed with Cetacaine. Patient received sedation per anesthesia department. The probe was introduced into the esophagus without difficulty. Images were obtained. Following that, the probe was removed. There was no immediate complication. Findings: Left atrial size is normal, left atrial appendage is normal. The ventricle size and systolic function are normal. The aortic valve revealed fibrocalcific changes of the aortic cusp. Mitral valve appears to be normal, tricuspid valve is normal. Descending thoracic aorta revealed mild atherosclerotic changes. No pericardial effusion was noted. Contrast bubble study revealed no shunting across the interatrial septum Doppler: Pulse wave and color Doppler were obtained, and revealed mild mitral and tricuspid regurgitation, there was no evidence of shunting across the intra- atrial septum Conclusion: 1. Normal left ventricle size and systolic function 2. Normal appearance of the left atrial appendage 3. No shunting across the interatrial septum 4. Mild mitral and tricuspid regurgitation 5. No pericardial effusion
--- NOTE | 2023-04-01 13:24 | PN ---
PROGRESS NOTE SUBJECTIVE: Mr. James is status post CVA with tPA, is going for transesophageal echo today. Yesterday, his pre echo was unsuccessful because the patient could not be sedated well. He is going to have this with anesthesia support. OBJECTIVE: VITAL SIGNS: Stable. HEART: S1, S2 heard normally. Short systolic murmur is noted. LUNGS: Clear. ABDOMEN: Unchanged. LOWER EXTREMITIES: Unchanged. The patient has CAD and CVA. CVA seems embolic, so we will do a 30-day event monitor even if ISRAEL is negative and if in 30 days he has no atrial fib, then he can have surgery. His right carotid stenosis does not appear to be critical and he has had previous left carotid endarterectomy. MMODL / IJN: [id number] /
--- NOTE | 2023-04-01 14:32 | P.PN ---
Progress Note - Text Progress Note Date: 04/01/23 Chief Complaint: Left-sided weakness This is a 72-year-old patient who follows with Dr. Felix. History of cardiac arrest. Tonic-clonic seizure. medical conditions include coronary artery disease with stent, GERD, hyperlipidemia, essential hypertension primary osteoar thritis. History of head injury. Hepatitis C. Arthritis. Patient yesterday sent down to eat pizza. Suddenly felt his vision was narrowed. Started feeling off. Left arm became weak. Speech became slurred. He was brought into the ER. In the ER there was left-sided weakness. Facial droop. Given TPA. He was admitted to the ICU and it was improvement in his neurological status. Today feels better. Speech is improved. Significant improvement of the left side. Able to eat his lunch. Seen by neurology. Patient does get charley horses on walking. Sometimes numbness in his feet. Has decreased vision in the left side of the visual field. March 29: ICU. Sitting at the edge of the bed. Eating his lunch. Feeling better. Weakness left side nearly resolved. Speech back to normal. Blood pressure good. Repeat CT brain today without contrast. Unremarkable. March 30: ICU. Sitting up edge of bed eating lunch. As per the patient and the doctor's ex- and daughter both felt to speech is not back to normal. Very slight weakness in the left arm. MRI of the brain did confirm stroke in 2 different areas. ISRAEL ordered. Neto started by neurology. March 31: ICU. Attempted ISRAEL today.) Restless. Postponed for tomorrow with anesthesia. Neurologically patient nearly back his baseline. Restless planning for right carotid surgery this admission. Patient is medically stable to proceed for the same. Discussed with patient. April 01: Patient is seen this morning and late in the day patient underwent a ISRAEL. No shunt or thrombus reported. Patient currently has scheduled right carotid surgery this Thursday. I discussed with Dr. Bejarano from neurology.-He discussed with the patient and vascular, and the patient is keen to proceed for surgery. Active Medications Aspirin (Aspirin 81 Mg) 81 mg PO DAILY [facility] Last Admin: 04/01/23 09:19 Dose: 81 mg Atorvastatin Calcium (Atorvastatin 80 Mg Tab) 80 mg PO HS [facility] Last Admin: 03/31/23 21:32 Dose: 80 mg Citalopram Hydrobromide (Citalopram Hydrobromide 20 Mg Tab) 20 mg PO DAILY [facility] Last Admin: 04/01/23 09:18 Dose: 20 mg Cyclobenzaprine HCl (Cyclobenzaprine 10 Mg Tab) 10 mg PO BID PRN PRN Reason: Muscle Spasm Last Admin: 04/01/23 09:19 Dose: 10 mg Donepezil HCl (Donepezil 10 Mg Tab) 10 mg PO HS [facility] Last Admin: 03/31/23 21:32 Dose: 10 mg Heparin Sodium (Porcine) (Heparin Sodium,Porcine 5,000 Unit/Ml 1 Ml Vial) 5,000 unit SQ Q12HR [facility] Last Admin: 04/01/23 09:18 Dose: 5,000 unit Sodium Chloride (Saline 0.9%) 1,000 mls @ 20 mls/hr IV .Q24H [facility] Isosorbide Mononitrate (Isosorbide Mononitrate Er 30 Mg Tab.Er.24h) 30 mg PO DAILY [facility] Last Admin: 04/01/23 09:18 Dose: 30 mg Ketotifen Fumarate (Ketotifen 0.025% Ophth Drops 5 Ml Btl) 1 drops BOTH EYES BID [facility] Last Admin: 04/01/23 09:21 Dose: Not Given Loratadine (Loratadine 10 Mg Tab) 10 mg PO DAILY [facility] Last Admin: 04/01/23 09:19 Dose: 10 mg Lorazepam (Lorazepam 1 Mg Tab) 1 mg PO Q8HR PRN PRN Reason: Anxiety Last Admin: 03/29/23 01:21 Dose: 1 mg Miscellaneous Information (Potassium Replacement Protocol 1 Each Misc) 1 each MISCELLANE DAILY PRN; Protocol PRN Reason: Per Protocol Naloxone HCl (Naloxone 0.4 Mg/Ml 1 Ml Vial) 0.2 mg IV Q2M PRN PRN Reason: Opioid Reversal Nicotine (Nicotine 14mg/24hr Patch) 1 patch TRANSDERM DAILY [facility] Last Admin: 04/01/23 09:17 Dose: 1 patch Oxycodone/Acetaminophen (Oxycodone-Apap 10-325mg 1 Each Tab) 1 each PO Q6HR PRN PRN Reason: Pain Last Admin: 04/01/23 09:18 Dose: 1 each Pantoprazole Sodium (Pantoprazole 40 Mg Tablet) 40 mg PO BID [facility] Last Admin: 04/01/23 09:19 Dose: 40 mg Polyethylene Glycol (Polyethylene Glycol 3350 17 Gm Powd.Pack) 17 gm PO DAILY [facility] Last Admin: 04/01/23 09:17 Dose: 17 gm Temazepam (Temazepam 15 Mg Cap) 30 mg PO HS [facility] Last Admin: 03/31/23 21:32 Dose: 30 mg Ticagrelor (Ticagrelor 90 Mg Tab) 90 mg PO BID [facility] Last Admin: 04/01/23 09:18 Dose: 90 mg Past medical history to include: Concussion, possible tonic-clonic seizure, coronary artery disease with stent, GERD, hyperlipidemia, essential hypertension, primary osteoarthritis, nicotine dependence.. Social history: Lives alone. Smokes a pack a day-several years. Denies alcohol. Physical examination: VITAL SIGNS: 98.4, 75, 18, 127/64, 97% room air GENERAL: Laying in bed, comfortable EYES: Pupils equal. Conjunctiva normal. HEENT: External appearance of nose and ears normal, oral cavity grossly normal. NECK: JVD not raised; masses not palpable. HEART: First and second heart sounds are normal; no edema. Decreased dorsalis pedis. LUNGS: Respiratory rate normal; decreased breath sounds. ABDOMEN: Soft, nontender, liver spleen not palpable, no masses palpable. PSYCH: Alert and oriented x3; mood and affect anxious. NEUROLOGICAL: Mouth slightly pulled over to the left, left arm power improved. Abnormal sensation left side of the face. Speech very slightly slow. MUSCULAR skeletal: Evidence of OA. INVESTIGATIONS, reviewed in the clinical context: ISRAEL: Bubble study was negative for any shunting. No embolic source was detected. March 31: White count 9.7 hemoglobin 12.7 potassium 3.6 creatinine 0.9 to Carotid Doppler: 50-69% reduction suggested bilaterally. MRI brain without contrast: Acute/subacute CVA involving the right thalamus and the left parietal occipital region. Some nonspecific) changes. March 29: White count 10.9 hemoglobin 13.7 potassium 3.9 creatinine 1.01 LDL 75 March 28: White count 11.9 hemoglobin 14.1 platelets 238 sodium 138 potassium 3.7 BUN 15 creatinine 1.0 LDL 75 EKG tracing personally reviewed by me-normal sinus rhythm. PVC. Chest x-ray film personally reviewed by me-portable. Underpenetrated. Some cardiomegaly. CT brain: Without contrast: Atrophy with chronic-appearing white matter ischemic changes. CT angiogram to neck: Mild narrowing without significant evidence for close limiting stenosis bilateral internal carotid artery origins. Assessment and plan: -Acute stroke possibly embolic or ischemic: Involving the right thalamus and the left parietal/occipital region. Status post TPA. Neurology following. Aspirin. Brillinta ISRAEL : Negative for shunting or embolic source. -Right carotid stenosis. Seen by Dr. Mehta from vascular. Right endarterectomy scheduled for April 03. -Coronary artery disease with stent Aspirin. -GERD PPI -Hyperlipidemia Increase Lipitor to 80 mg daily at bedtime. -Essential hypertension Follow blood pressure closely -Primary osteoarthritis Percocet when necessary -Chronic nicotine dependence patient cigarette smoker Nicotine patch Continue current treatment plan. Patient scheduled for surgery for right carotid on Thursday Past Medical History Past Medical History: Coronary Artery Disease (CAD), CVA/TIA, GERD/Reflux, Hyperlipidemia, Hypertension, Liver Disease, Myocardial Infarction ([place]), Vascular Disorder Additional Past Medical History / Comment(s): Patient states he was admitted to the hospital January after a fall with head injury/new onset seizures and was hospitalized at [facility] in [place]. He was on life support and was extubated and had one more seizure. 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 Patient states he has Hepatitis C. Last Myocardial Infarction Date:: 2011 History of Any Multi-Drug Resistant Organisms: None Reported Past Surgical History: Heart Catheterization With Stent, Orthopedic Surgery Additional Past Surgical History / Comment(s): PCI with a total of 7 stents per pt, L caratid endartectomy, L shoulder surgery for injury, R knee/R hip/R elbow/R wrist ligament/tendon type surgeries injuries-has pins in hand, colonoscopy. Past Anesthesia/Blood Transfusion Reactions: No Reported Reaction Date of Last Stent Placement:: 2011 Past Psychological History: Anxiety Smoking Status: Current every day smoker Past Alcohol Use History: None Reported Past Drug Use History: Marijuana - Past Family History Father Family Medical History: CVA/TIA Additional Family Medical History / Comment(s): Father is from CVA. Pt states father from "stupidity." Mother Family Medical History: Diabetes Mellitus Additional Family Medical History / Comment(s): Mother from diabetes at the age of 52 yrs. Brother(s) Family Medical History: Diabetes Mellitus Additional Family Medical History / Comment(s): Brother at the age of 32 yrs from type 1 diabetes. Medications and Allergies Home Medications Medication Instructions Recorded Confirmed Type Isosorbide Mononitrate ER [Imdur] 30 mg PO DAILY 09/07/17 03/27/23 History lisinopriL [Zestril] 10 mg PO DAILY 09/07/17 03/27/23 History Aspirin 81 mg PO DAILY #1 chewable 02/27/19 03/27/23 Rx Donepezil [Aricept] 10 mg PO HS 04/11/19 03/27/23 History Temazepam [Restoril] 30 mg PO HS 04/11/19 03/27/23 History amLODIPine [Norvasc] 5 mg PO DAILY 04/11/19 03/27/23 History Atorvastatin [Lipitor] 40 mg PO DAILY 03/22/23 03/27/23 History Citalopram Hydrobromide [CeleXA] 20 mg PO DAILY 03/22/23 03/27/23 History Clopidogrel [Plavix] 75 mg PO DAILY 03/22/23 03/27/23 History Cyclobenzaprine [Flexeril] 10 mg PO BID PRN 03/22/23 03/27/23 History LORazepam [Ativan] 1 mg PO TID 03/22/23 03/27/23 History Olopatadine HCl [Patanol 0.1%] 1 drop BOTH EYES TID 03/22/23 03/27/23 History Pantoprazole Sodium [Protonix] 20 mg PO BID 03/22/23 03/27/23 History oxyCODONE-APAP 10-325MG [Percocet 1 tab PO QID 03/22/23 03/27/23 History 10-325 mg] Allergies Allergy/AdvReac Type Severity Reaction Status Date / Time alprazolam [From Xanax] Allergy Unknown Verified 03/27/23 16:23 codeine Allergy Rash/Hives Verified 03/27/23 16:23 zolpidem [From Ambien] AdvReac "salty" Verified 03/27/23 16:23 taste in mouth, numb mouth
--- NOTE | 2023-04-01 14:35 | P.PN ---
Subjective Progress Note Date: 04/01/23 Principal diagnosis: Carotid stenosis Seen and examined today as a follow-up. He was moved out of the ICU and is on selective care unit. He is without any acute changes, denies any new focal deficits. Underwent ISRAEL today reporting normal left ventricle size and systolic function. Normal appearance of left atrial appendage. No shunting across interatrial septum. Mild mitral and tricuspid regurgitation. No pericardial effusion. Objective - Vital Signs Vital signs: Vital Signs Temp 98.4 F 04/01/23 08:00 Pulse 75 04/01/23 12:00 Resp 18 04/01/23 12:00 BP 127/64 04/01/23 12:00 Pulse Ox 97 04/01/23 12:00 FiO2 21 03/30/23 08:57 Intake & Output 03/31/23 04/01/23 04/01/23 18:59 06:59 18:59 Intake Total 500 340 Output Total 700 Balance -200 340 Intake: IV 100 Oral 500 240 Output: Urine 700 Other: Voiding Method Urinal Urinal # Voids 1 1 1 - Exam General appearance: The patient is alert, oriented, appears in no acute distress. HET: Head is normocephalic and atraumatic. Pupils are equal and reactive. Neck: Supple. Heart: Regular. Lungs: Equal expansion, normal respiratory effort. Abdomen: Soft, nontender, nondistended. Extremities: Normal skin color and turgor. Neurological: No focal deficits. Strength and sensation are grossly intact. - Labs CBC & Chem 7: 03/31/23 05:43 03/31/23 05:43 Assessment and Plan Assessment: 1. Acute ischemic stroke involving right thalamus left parietal occipital, likely embolic 2. Symptomatic right ICA stenosis. CTA and carotid duplex personally reviewed by Dr. Mehta who felt that right internal carotid artery stenosis was closer to over 50% narrowed on CT angiogram head and neck. 3. History of multiple TIAs status post left carotid endarterectomy approximately 7 years ago 4. Coronary artery disease status post multiple stents 5. Hypertension 6. Hyperlipidemia 7. Tobacco abuse Plan: Patient underwent ISRAEL today with normal findings other than mild mitral and tricuspid regurgitation. Surgical options were discussed with patient again this morning and he was agreeable to undergo carotid endarterectomy if ISRAEL was negative for greater than 50% right ICA stenosis. Patient tentatively scheduled for right internal carotid artery endarterectomy on 04/03/2023. Continue aspirin, Brilinta and a atorvastatin. Type and screen ordered. Thank you for this consultation, we will continue to follow. The impression and plan of care has been dictated as directed. Dr. Romero I performed a history and examination of this patient, discussed the same with the dictator. I agree with the dictator's note ,documented as a scribe. Any additional findings or plans will be noted.
[2023-04-01] MEDS: SODIUM CHLORIDE 0.9% 1,000 ML IV SCH (18:51)
[2023-04-01] MEDS: ATORVASTATIN 80 MG TAB PO SCH (20:22)
[2023-04-01] MEDS: DONEPEZIL 10 MG TAB PO SCH (20:23)
[2023-04-01] MEDS: TEMAZEPAM 15 MG CAP PO SCH (20:29)
[2023-04-02] MEDS: oxyCODONE-APAP 10-325MG 1 EACH TAB PO PRN ×3 (04:06→16:07)
[2023-04-02] MEDS: ASPIRIN 81 MG PO SCH (08:54)
[2023-04-02] MEDS: CITALOPRAM HYDROBROMIDE 20 MG TAB PO SCH (08:55)
[2023-04-02] MEDS: ISOSORBIDE MONONITRATE ER 30 MG TAB.ER.24H PO SCH (08:55)
[2023-04-02] MEDS: TICAGRELOR 90 MG TAB PO SCH ×2 (08:55→21:08)
[2023-04-02] MEDS: HEPARIN SODIUM,PORCINE 5,000 UNIT/ML 1 ML VIAL SQ SCH ×2 (08:55→20:07)
[2023-04-02] MEDS: NICOTINE 14MG/24HR PATCH TRANSDERM SCH (08:56)
[2023-04-02] MEDS: LORATADINE 10 MG TAB PO SCH (08:56)
[2023-04-02] MEDS: polyethylene glycoL 3350 17 GM POWD.PACK PO SCH (08:57)
[2023-04-02] MEDS: PANTOPRAZOLE 40 MG TABLET PO SCH ×2 (08:57→20:07)
[2023-04-02] MEDS: KETOTIFEN 0.025% OPHTH DROPS 5 ML BTL BOTH EYES SCH ×2 (09:57→20:07)
--- NOTE | 2023-04-02 10:56 | P.PN ---
Subjective Progress Note Date: 04/02/23 73-year-old male who was seen in the emergency department, on March 27, for possible CVA. He apparently came in with left arm and left leg numbness, and facial droop. His initial NIH score was 12. The patient had a computed tomography scan of the brain, and there was no bleeding, and hence, he received TPA. Currently, he is resting comfortably in the intensive care unit. He seen in room 254. The patient is doing much better, and is almost completely back to normal. He's currently on room air. He is getting saline at 100 mL an hour. Unfortunately, the patient does continue to smoke cigarettes. He has a history of coronary artery disease, with stenting 7, hypertension, hyperlipidemia, and gastroesophageal reflux disease. The patient apparently is also had a myocardial infarction in the past. The patient has been smoking for many years. White count 11.9, with a normal hemoglobin, hematocrit, and platelet count. Sodium 138, potassium 3.7, chlorides 112, CO2 21, BUN 15, and creatinine 1.0. Brain CT showed atrophy with chronic appearing periventricular white matter ischemic changes, which is stable. No acute intracranial process noted. Chest x-ray was normal. Angiography CT, showed mild narrowing, without significant flow limiting stenosis. Progress note dated 03/29/2023. 72-year-old male who was seen in consultation yesterday, for left-sided stroke symptoms. The patient received TPA in the emergency department, and, has had significant improvement. He seen today in room 254. He's on room air. He is receiving saline at 10 mL an hour. The patient will be going down for a follow- up computed tomography scan of the head, without contrast. He has no new comp laints today. Labs today include a white count 10.9, hemoglobin 13.7, hematocrit 43.3, and a normal platelet count. Sodium 137, potassium 3.9, chlorides 111, CO2 18, BUN 12, creatinine 1.01. 03/30 2023, I'm seeing the patient for a follow-up. The patient is post TPA. Neurologically intact. Moving all 4 extremities. Able to swallow. Left-sided weakness has subsided and the patient is going to have an MRI of the brain today. Echocardiogram that was done on 03/28/2023 showed mild impairment of LV function with an ejection fraction of 40-45% and inferior wall hypokinesis. The patient is known to have coronary artery disease. He has undergone multiple coronary stenting. At the same time there is moderately increased LV wall thickening. No evidence of any pericardial effusion. In terms of medication, the patient is currently on aspirin 325 mg by mouth daily. He is taking [place] f or pain control. He has chronic back pain and he also takes nonsteroidal anti- inflammatory medications. He is on Lipitor high-dose 80 mg by mouth daily. MRI of the brain is to be done today. The BUN 12 with a creatinine of 1. The white cell count is at 10.9 with a hemoglobin 15.7. His LDL cholesterol was was 75. CT angiography that was done on 03/27/2023 showed mild narrowing without any si gnificant flow limitation of the bilateral internal carotid arteries. No other acute vascular abnormalities noted. There is condition is stable for now. Blood pressure is 138/78. On today's examination, the patient continues to have some residual left-sided weakness in the left arm slightly weaker compared to the right. No facial asymmetry. Adequate swallow. On 03/31/2023, patient is being seen for a follow-up. Neurologically stable. Some improvement in the left lower and upper extremity weakness. MRI of the brain was done and the patient was found to have an acute/subacute CVA involving the right thalamus and left parietal/occipital region. Nonspecific white matter changes were also seen. Meanwhile, the carotid Dopplers showed 50-70% carotid artery stenosis bilaterally. Based on those findings, the patient is going to need a ISRAEL to rule out a possibility of embolic phenomena. At the same time, Mr. surgery was consulted and the patient is being contemplated for possibility of a carotid endarterectomy on the right. The labs are all stable. White cell cause of 9.7, hemoglobin was 12.7, normal renal function. Electrolytes all within normal limits. He remains on aspirin 81 mg by mouth daily and heparin subcu. He is also on Brilinta 90 mg by mouth twice a day. 04/01/2023, the patient is neurologically stable and the patient had a failed ISRAEL yesterday and the procedure is to be completed today. No new complaints. No new labs. The patient remains on aspirin and Brilinta for now. The patient was transferred out of the intensive care unit yesterday. On 04/02/2023, the patient has no neurological symptoms and the plan is to proceed with a right carotid endarterectomy tomorrow. For now, the patient is currently on a combination of aspirin and Brilinta. Vascular surgeries on the case. The patient has no headache, no altered mentation, motor function in the left upper extremity is stable and back to its baseline. No new labs are available from today. ISRAEL was done and the patient was found to have a normal LV, normal systolic function, no cardiac sounds, rales were normal. No evidence of any pericardial effusion. Objective - Vital Signs Vital signs: Vital Signs Temp 97.4 F L 04/02/23 08:19 Pulse 74 04/02/23 08:19 Resp 16 04/02/23 08:19 BP 114/59 04/02/23 08:19 Pulse Ox 97 04/02/23 08:23 FiO2 21 03/30/23 08:57 Intake & Output 04/01/23 04/02/23 04/02/23 18:59 06:59 18:59 Intake Total 580 Balance 580 Weight 100 kg Intake: IV 100 Oral 480 Other: Voiding Method Urinal # Voids 1 1 - Exam No acute distress, oriented 3. Currently on room air. HEENT examination is grossly unremarkable. Mucous membranes are moist. No oral lesions. Neck supple. Full range of motion. No adenopathy thyromegaly or neck vein distention. Cardiovascular examination reveals regular rhythm rate. S1-S2 normal. No S3 or S4. No discernible murmur noted. Lungs reveal clear breath sounds. Breath sounds are equal bilaterally. No adventitious lung sounds including wheezes rhonchi or crackles. Abdomen soft bowel sounds are heard. No masses or tenderness. Extremities are intact. No cyanosis clubbing or edema. Skin is without rash or lesion. Neurologic examination is brief but nonfocal., There is improvement in motor function in the left upper extremity. I think the motor functions improved compared to yesterday. No new onset focal neurological deficits. No facial asymmetry. Pupils are equal and reactive to light. - Labs CBC & Chem 7: 03/31/23 05:43 03/31/23 05:43 Assessment and Plan Plan: Acute right-sided CVA, with left-sided weakness, and left facial droop, S/P TPA, with near-complete resolution of the patient's symptoms. The patient continues to have some minimal residual left-sided weakness on today's examination. Symptoms are stable on today's evaluation of the patient has no new onset neurological deficit. Follow-up CAT scan of the brain was done on 03/29/2023 showed stable chronic white matter ischemic changes without any acute bleeds. No evidence of any thrombotic stroke either. MRIs showing a right thalamic and left occipital acute/subacute CVA and the carotid Doppler that shown 50-70% stenotic changes bilaterally. The patient completed ISRAEL on 04/01/2023 and the findings of essentially normal. The patient is going to undergo a right carotid endarterectomy tomorrow. CAD, with multiple previous stents. The patient is a preserved LV function, moderate LVH Hypertension. Hyperlipidemia. Previous myocardial infarction. Ongoing tobacco use with nicotine addiction. Gastroesophageal reflux disease. Plan: ISRAEL completed and the results were noted MRI of the brain was noted from yesterday and the patient may possibly have an embolic condition underlying his multiple CVAs Continue aspirin and Brilinta Continue Lipitor Echo was noted Vascular surgery evaluation, the patient is to undergo a right carotid endarterectomy tomorrow and he will likely need ICU monitoring following surgery. The patient will need physical therapy We'll continue to follow
--- NOTE | 2023-04-02 12:55 | P.PN ---
Progress Note - Text Progress Note Date: 04/02/23 Chief Complaint: Left-sided weakness This is a 72-year-old patient who follows with Dr. Felix. History of cardiac arrest. Tonic-clonic seizure. medical conditions include coronary artery disease with stent, GERD, hyperlipidemia, essential hypertension primary osteoar thritis. History of head injury. Hepatitis C. Arthritis. Patient yesterday sent down to eat pizza. Suddenly felt his vision was narrowed. Started feeling off. Left arm became weak. Speech became slurred. He was brought into the ER. In the ER there was left-sided weakness. Facial droop. Given TPA. He was admitted to the ICU and it was improvement in his neurological status. Today feels better. Speech is improved. Significant improvement of the left side. Able to eat his lunch. Seen by neurology. Patient does get charley horses on walking. Sometimes numbness in his feet. Has decreased vision in the left side of the visual field. March 29: ICU. Sitting at the edge of the bed. Eating his lunch. Feeling better. Weakness left side nearly resolved. Speech back to normal. Blood pressure good. Repeat CT brain today without contrast. Unremarkable. March 30: ICU. Sitting up edge of bed eating lunch. As per the patient and the doctor's ex- and daughter both felt to speech is not back to normal. Very slight weakness in the left arm. MRI of the brain did confirm stroke in 2 different areas. ISRAEL ordered. Neto started by neurology. March 31: ICU. Attempted ISRAEL today.) Restless. Postponed for tomorrow with anesthesia. Neurologically patient nearly back his baseline. Restless planning for right carotid surgery this admission. Patient is medically stable to proceed for the same. Discussed with patient. April 01: Patient is seen this morning and late in the day patient underwent a ISRAEL. No shunt or thrombus reported. Patient currently has scheduled right carotid surgery this Thursday. I discussed with Dr. Bejarano from neurology.-He discussed with the patient and vascular, and the patient is keen to proceed for surgery. April 02: Laying in bed. Nothing by mouth. Pending surgery. No new issues. Active Medications Aspirin (Aspirin 81 Mg) 81 mg PO DAILY [facility] Last Admin: 04/02/23 08:54 Dose: Not Given Atorvastatin Calcium (Atorvastatin 80 Mg Tab) 80 mg PO HS [facility] Last Admin: 04/01/23 20:22 Dose: 80 mg Citalopram Hydrobromide (Citalopram Hydrobromide 20 Mg Tab) 20 mg PO DAILY [facility] Last Admin: 04/02/23 08:55 Dose: 20 mg Cyclobenzaprine HCl (Cyclobenzaprine 10 Mg Tab) 10 mg PO BID PRN PRN Reason: Muscle Spasm Last Admin: 04/01/23 09:19 Dose: 10 mg Donepezil HCl (Donepezil 10 Mg Tab) 10 mg PO HS [facility] Last Admin: 04/01/23 20:23 Dose: 10 mg Heparin Sodium (Porcine) (Heparin Sodium,Porcine 5,000 Unit/Ml 1 Ml Vial) 5,000 unit SQ Q12HR [facility] Last Admin: 04/02/23 08:55 Dose: Not Given Sodium Chloride (Saline 0.9%) 1,000 mls @ 20 mls/hr IV .Q24H [facility] Last Admin: 04/01/23 18:51 Dose: Not Given Isosorbide Mononitrate (Isosorbide Mononitrate Er 30 Mg Tab.Er.24h) 30 mg PO DAILY [facility] Last Admin: 04/02/23 08:55 Dose: 30 mg Ketotifen Fumarate (Ketotifen 0.025% Ophth Drops 5 Ml Btl) 1 drops BOTH EYES BID [facility] Last Admin: 04/02/23 09:57 Dose: 1 drops Loratadine (Loratadine 10 Mg Tab) 10 mg PO DAILY [facility] Last Admin: 04/02/23 08:56 Dose: 10 mg Lorazepam (Lorazepam 1 Mg Tab) 1 mg PO Q8HR PRN PRN Reason: Anxiety Last Admin: 03/29/23 01:21 Dose: 1 mg Miscellaneous Information (Potassium Replacement Protocol 1 Each Misc) 1 each MISCELLANE DAILY PRN; Protocol PRN Reason: Per Protocol Naloxone HCl (Naloxone 0.4 Mg/Ml 1 Ml Vial) 0.2 mg IV Q2M PRN PRN Reason: Opioid Reversal Nicotine (Nicotine 14mg/24hr Patch) 1 patch TRANSDERM DAILY [facility] Last Admin: 04/02/23 08:56 Dose: Not Given Oxycodone/Acetaminophen (Oxycodone-Apap 10-325mg 1 Each Tab) 1 each PO Q6HR PRN PRN Reason: Pain Last Admin: 04/02/23 09:57 Dose: 1 each Pantoprazole Sodium (Pantoprazole 40 Mg Tablet) 40 mg PO BID [facility] Last Admin: 04/02/23 08:57 Dose: 40 mg Polyethylene Glycol (Polyethylene Glycol 3350 17 Gm Powd.Pack) 17 gm PO DAILY [facility] Last Admin: 04/02/23 08:57 Dose: Not Given Temazepam (Temazepam 15 Mg Cap) 30 mg PO HS [facility] Last Admin: 04/01/23 20:29 Dose: 30 mg Ticagrelor (Ticagrelor 90 Mg Tab) 90 mg PO BID [facility] Last Admin: 04/02/23 08:55 Dose: Not Given Past medical history to include: Concussion, possible tonic-clonic seizure, coronary artery disease with stent, GERD, hyperlipidemia, essential hypertension, primary osteoarthritis, nicotine dependence.. Social history: Lives alone. Smokes a pack a day-several years. Denies alcohol. Physical examination: VITAL SIGNS: 97.4, 74, a 16, 11/59, 97% on 2 L GENERAL: Laying in bed, comfortable EYES: Pupils equal. Conjunctiva normal. HEENT: External appearance of nose and ears normal, oral cavity grossly normal. NECK: JVD not raised; masses not palpable. HEART: First and second heart sounds are normal; no edema. Decreased dorsalis pedis. LUNGS: Respiratory rate normal; decreased breath sounds. ABDOMEN: Soft, nontender, liver spleen not palpable, no masses palpable. PSYCH: Alert and oriented x3; mood and affect anxious. NEUROLOGICAL: Mouth slightly pulled over to the left, left arm power improved. Abnormal sensation left side of the face. Speech any back to normal MUSCULAR skeletal: Evidence of OA. INVESTIGATIONS, reviewed in the clinical context: ISRAEL: Bubble study was negative for any shunting. No embolic source was detected. March 31: White count 9.7 hemoglobin 12.7 potassium 3.6 creatinine 0.9 to Carotid Doppler: 50-69% reduction suggested bilaterally. MRI brain without contrast: Acute/subacute CVA involving the right thalamus and the left parietal occipital region. Some nonspecific) changes. March 29: White count 10.9 hemoglobin 13.7 potassium 3.9 creatinine 1.01 LDL 75 March 28: White count 11.9 hemoglobin 14.1 platelets 238 sodium 138 potassium 3.7 BUN 15 creatinine 1.0 LDL 75 EKG tracing personally reviewed by me-normal sinus rhythm. PVC. Chest x-ray film personally reviewed by me-portable. Underpenetrated. Some cardiomegaly. CT brain: Without contrast: Atrophy with chronic-appearing white matter ischemic changes. CT angiogram to neck: Mild narrowing without significant evidence for close limiting stenosis bilateral internal carotid artery origins. Assessment and plan: -Acute stroke possibly embolic or ischemic: Involving the right thalamus and the left parietal/occipital region. Status post TPA. Neurology following. Aspirin. Brillinta ISRAEL : Negative for shunting or embolic source. -Right carotid stenosis. Seen by Dr. Mehta from vascular. Right endarterectomy scheduled today -Coronary artery disease with stent Aspirin. -GERD PPI -Hyperlipidemia Increase Lipitor to 80 mg daily at bedtime. -Essential hypertension Follow blood pressure closely -Primary osteoarthritis Percocet when necessary -Chronic nicotine dependence patient cigarette smoker Nicotine patch Continue current treatment plan. Pending right carotid surgery today Past Medical History Past Medical History: Coronary Artery Disease (CAD), CVA/TIA, GERD/Reflux, Hy perlipidemia, Hypertension, Liver Disease, Myocardial Infarction (SC), Vascular Disorder Additional Past Medical History / Comment(s): Patient states he was admitted to the hospital January after a fall with head injury/new onset seizures and was hospitalized at [facility] in [place]. He was on life support and was extubated and had one more seizure. 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 Patient states he has Hepatitis C. Last Myocardial Infarction Date:: 2011 History of Any Multi-Drug Resistant Organisms: None Reported Past Surgical History: Heart Catheterization With Stent, Orthopedic Surgery Additional Past Surgical History / Comment(s): PCI with a total of 7 stents per pt, L caratid endartectomy, L shoulder surgery for injury, R knee/R hip/R elbow/R wrist ligament/tendon type surgeries injuries-has pins in hand, colonoscopy. Past Anesthesia/Blood Transfusion Reactions: No Reported Reaction Date of Last Stent Placement:: 2011 Past Psychological History: Anxiety Smoking Status: Current every day smoker Past Alcohol Use History: None Reported Past Drug Use History: Marijuana - Past Family History Father Family Medical History: CVA/TIA Additional Family Medical History / Comment(s): Father is from CVA. Pt states father from "stupidity." Mother Family Medical History: Diabetes Mellitus Additional Family Medical History / Comment(s): Mother from diabetes at the age of 52 yrs. Brother(s) Family Medical History: Diabetes Mellitus Additional Family Medical History / Comment(s): Brother at the age of 32 yrs from type 1 diabetes. Medications and Allergies Home Medications Medication Instructions Recorded Confirmed Type Isosorbide Mononitrate ER [Imdur] 30 mg PO DAILY 09/07/17 03/27/23 History lisinopriL [Zestril] 10 mg PO DAILY 09/07/17 03/27/23 History Aspirin 81 mg PO DAILY #1 chewable 02/27/19 03/27/23 Rx Donepezil [Aricept] 10 mg PO HS 04/11/19 03/27/23 History Temazepam [Restoril] 30 mg PO HS 04/11/19 03/27/23 History amLODIPine [Norvasc] 5 mg PO DAILY 04/11/19 03/27/23 History Atorvastatin [Lipitor] 40 mg PO DAILY 03/22/23 03/27/23 History Citalopram Hydrobromide [CeleXA] 20 mg PO DAILY 03/22/23 03/27/23 History Clopidogrel [Plavix] 75 mg PO DAILY 03/22/23 03/27/23 History Cyclobenzaprine [Flexeril] 10 mg PO BID PRN 03/22/23 03/27/23 History LORazepam [Ativan] 1 mg PO TID 03/22/23 03/27/23 History Olopatadine HCl [Patanol 0.1%] 1 drop BOTH EYES TID 03/22/23 03/27/23 History Pantoprazole Sodium [Protonix] 20 mg PO BID 03/22/23 03/27/23 History oxyCODONE-APAP 10-325MG [Percocet 1 tab PO QID 03/22/23 03/27/23 History 10-325 mg] Allergies Allergy/AdvReac Type Severity Reaction Status Date / Time alprazolam [From Xanax] Allergy Unknown Verified 03/27/23 16:23 codeine Allergy Rash/Hives Verified 03/27/23 16:23 zolpidem [From Ambien] AdvReac "salty" Verified 03/27/23 16:23 taste in mouth, numb mouth
--- NOTE | 2023-04-02 12:59 | P.PN ---
Subjective Progress Note Date: 04/02/23 Principal diagnosis: Carotid stenosis Patient seen and examined today as a follow-up. No new focal deficits. Plan is to move forward with right carotid endarterectomy tomorrow. Objective - Vital Signs Vital signs: Vital Signs Temp 97.4 F L 04/02/23 08:19 Pulse 74 04/02/23 08:19 Resp 16 04/02/23 08:19 BP 114/59 04/02/23 08:19 Pulse Ox 97 04/02/23 08:23 FiO2 21 03/30/23 08:57 Intake & Output 04/01/23 04/02/23 04/02/23 18:59 06:59 18:59 Intake Total 580 Balance 580 Weight 100 kg Intake: IV 100 Oral 480 Other: Voiding Method Urinal # Voids 1 1 - Exam General appearance: The patient is alert, oriented, appears in no acute distress. HET: Head is normocephalic and atraumatic. Pupils are equal and reactive. Neck: Supple. Heart: Regular. Lungs: Equal expansion, normal respiratory effort. Abdomen: Soft, nontender, nondistended. Extremities: Normal skin color and turgor. Neurological: No focal deficits. Strength and sensation are grossly intact. - Labs CBC & Chem 7: 03/31/23 05:43 03/31/23 05:43 Assessment and Plan Assessment: 1. Acute ischemic stroke involving right thalamus left parietal occipital, likely embolic however ISRAEL negative 2. Symptomatic right ICA stenosis. CTA and carotid duplex personally reviewed by Dr. Mehta who felt that right internal carotid artery stenosis was closer t o over 50% narrowed on CT angiogram head and neck. 3. History of multiple TIAs status post left carotid endarterectomy approximately 7 years ago 4. Coronary artery disease status post multiple stents 5. Hypertension 6. Hyperlipidemia 7. Tobacco abuse Plan: Surgical options were discussed with patient again this morning including no surgery at all. Surgical risks and benefits of right carotid endarterectomy were discussed with patient by Dr. Romero. Patient is aware that even undergoing carotid endarterectomy patient may have recurrent stroke from possible cardiac embolic source. He seemingly understands and is requesting to move forward with right carotid endarterectomy. Hold Brilinta, may continue aspirin. Discussed and recommend smoking cessation. Patient currently on nicotine patch. Thank you for this consultation, we will continue to follow. The impression and plan of care has been dictated as directed. Dr. Angelo I performed a history and examination of this patient, discussed the same with the dictator. I agree with the dictator's note ,documented as a scribe. Any additional findings or plans will be noted.
--- NOTE | 2023-04-02 15:34 | P.PN ---
Subjective Progress Note Date: 04/02/23 History of present illness: This is a 72 year old male status post CVA with TPA and we have been on consult for ISRAEL. Patient initially underwent ISRAEL that was unsuccessful, subsequently went for ISRAEL yesterday that showed no cardiac source of stroke. Patient was also found to have right carotid stenosis and is scheduled for carotid enterectomy tomorrow with vascular surgery. Patient has been ambulating well in the hallway with no chest pain, shortness of breath, lightheadedness or dizziness. Patient's history and chart has been reviewed. He currently denies having any chest pain. Regarding activity, patient states he has been very active until about 3 years ago when he "broke his back" which is causing some limitations. He is ambulatory in his home as able to walk up stairs and to his mailbox with no symptoms. Patient is an active smoker of 1 pack per day Physical examination: Gen: This is a 72-year-old male. He is resting in bed and appears to be comfortable and in no acute distress VS: reviewed HEENT: Head is atraumatic, normocephalic. Pupils equal, round. Sclerae is anicteric. NECK: Supple. No JVD. . LUNGS: Clear to auscultation. No wheezes or rhonchi. No intercostal retractions. HEART: Regular rate and rhythm. Short systolic murmur. ABDOMEN: Soft No tenderness. EXTREMITIES: No pedal edema. No calf tenderness. NEUROLOGICAL: Patient is awake, alert and oriented x3. Assessment: Carotid stenosis Coronary artery disease CVA status post TPA Ischemic cardiomyopathy with prior AK and PCI of the possible RCA. Patient states his first stents were done in the in the last stent 5 years ago History of previous CVA Tobacco use and dependence, 1 pack per day Plan: Continue current cardiac medications. Brilinta to be held per vascular surgery recommendations Patient is cleared for carotid endarterectomy. He is noted to be at moderate to high risk for complications with this high risk surgery. There are no cardiovascular contraindications in moving forward. Thank you kindly for this consultation. Nurse practitioner note has been reviewed, I agree with documented findings and plan of care. Patient was seen and examined. Objective - Vital Signs Vital signs: Vital Signs Temp 97.4 F L 04/02/23 08:19 Pulse 74 04/02/23 08:19 Resp 16 04/02/23 08:19 BP 114/59 04/02/23 08:19 Pulse Ox 97 04/02/23 08:23 FiO2 21 03/30/23 08:57 Intake & Output 04/01/23 04/02/23 04/02/23 18:59 06:59 18:59 Intake Total 580 Balance 580 Weight 100 kg Intake: IV 100 Oral 480 Other: Voiding Method Urinal # Voids 1 1 - Labs CBC & Chem 7: 03/31/23 05:43 03/31/23 05:43
[2023-04-02 15:43] VITALS: BMI 33.5
--- NOTE | 2023-04-02 17:46 | P.PN ---
Subjective Progress Note Date: 04/02/23 I am following-up with patient and he feels about the same from neurological perspective. No new neurological issues. His ISRAEL is negative and he wants to pursue with carotid intervention on the right. Objective - Vital Signs Vital signs: Vital Signs Temp 97.4 F L 04/02/23 08:19 Pulse 71 04/02/23 12:00 Resp 16 04/02/23 12:00 BP 106/59 04/02/23 12:00 Pulse Ox 96 04/02/23 12:00 FiO2 21 03/30/23 08:57 Intake & Output 04/01/23 04/02/23 04/02/23 18:59 06:59 18:59 Intake Total 580 Balance 580 Weight 100 kg Intake: IV 100 Oral 480 Other: Voiding Method Urinal # Voids 1 1 1 - Exam GENERAL: The patient is lying in bed and is not in acute distress. NEUROLOGICAL: Higher mental function: The patient is awake, alert, oriented to self, place and time. Patient is following commands. No aphasia and no neglect. Cranial nerves: The pupils are round, equal and reactive to light. Visual stevens are full to confrontation throughout. Extraocular movement is intact no nystagmus is noted. Facial sensation is normal to touch throughout. The facial strength is normal throughout. Tongue is midline and moved [id number] without any difficulty. No dysarthria is noted. Motor: The strength is limited on the left upper and lower extremity because of left shoulder pain and hip pain. His strength was at least 4+ on left side. Bilateral hand focusing machine operator are 5/5. Otherwise, rest are 5/5. . Normal tone and bulk. Cerebellum: Normal finger to nose bilaterally. Sensation: Stated has left sided numbness. SOME OF THE WORK-UP DURING THIS HOSPITAL VISIT CONSISTED OF: Lipid panel: TG 120, Choles 135, LDL 75 and HDL 35 HbA1c: 6.1 MRI Brain is reported as acute/subacute CVA involving right thalamus/left parietal occipital region. Correlate for embolic phenomenon. Nonspecific white matter changes, likely secondary to small vessel ischemic disease. I personally reviewed it and agree with right thalamus but on left felt more temporal- occipital region. CTA head and neck reported as Mild narrowing without significant flow-limiting stenosis bilateral internal carotid artery. Normal upper [place]. 2D echo: Is reported as left ventricular ef 40-45% with inferior hypokinesis. Moderate increased left ventricular wall thickness.Moderately increased left atrial volume. Carotid duplex: It is reported as 50-69% diameter reduction suggested bilaterally. ISRAEL on 04/01/2023: It is reported as normal left ventricular size and systolic function. Normal appearance left atrial appendage. No shunting across the anterior atrial septum. Mild mitral tricuspid regurgitation. No pericardial effusion. - Labs CBC & Chem 7: 03/31/23 05:43 03/31/23 05:43 Assessment and Plan Assessment: This is a 72 y/o gentleman who presented with dizziness, headache, not responding. He received IV tpa because of stroke-like symptoms. On MRI he has acute ischemic stroke. Acute ischemic stroke post IV tpa. Stroke involving right thalamus and I felt more left temporal-occipital (was reported by radiologist as parietal- occipital). Is embolic in nature. Unsure if cardiembolic vs artery to artery Bilateral carotid stenosis 50-69% stenosis on duplex (discordant between duplex and CTA. CTA show mild narrowing). Patient stated in past was told has moderate to significant stenosis of right in past. ISRAEL is normal. History of multiple TIA's in past History of CA s/p stent History of IA Hypertension Hyperlipidemia X-tobacco use Plan: He was on ASA and Plavix at home. Since he failed those medications, I stopped Plavix and started him on Brilinta 90mg bid and continued ASA but low dose of 81mg daily. Continue Lipitor 80mg daily. Cardiology is on board. ISRAEL is negative. Recommend an event monitor for 30 days. Vascular surgery team is consulted for carotid stenosis. They recommended right internal carotid endarterectomy on 04/03/2023. I cannot rule out cardioembolic even if the ISRAEL is negative but he stated that he understands and but would like to still pursue with intervention of carotid. Continue neuro checks Cardiac monitoring. So far he is in sinus rhythm per tele-monitoring staff. PT, OT and CIRCUIT TESTER are consulted. Will defer the rest of medical management to primary team. For DVT prophylaxis: On subq heparin 5000U every 12 hours. The plan is discussed with patient and vascular surgery N.P. I spoke extensively with primary attending yesterday regarding this case. Time with Patient: Less than 30
[2023-04-02] MEDS: TEMAZEPAM 15 MG CAP PO SCH (20:06)
[2023-04-02] MEDS: DONEPEZIL 10 MG TAB PO SCH (20:07)
[2023-04-02] MEDS: ATORVASTATIN 80 MG TAB PO SCH (20:07)
[2023-04-03] MEDS: oxyCODONE-APAP 10-325MG 1 EACH TAB PO PRN ×3 (03:55→21:41)
[2023-04-03] MEDS: SODIUM CHLORIDE 0.9% 1,000 ML IV SCH ×2 (04:50→15:46)
[2023-04-03] MEDS: TICAGRELOR 90 MG TAB PO SCH ×2 (04:50→20:10)
[2023-04-03] MEDS: ISOSORBIDE MONONITRATE ER 30 MG TAB.ER.24H PO SCH (05:16)
[2023-04-03] MEDS: LORATADINE 10 MG TAB PO SCH (05:16)
[2023-04-03] MEDS: ASPIRIN 81 MG PO SCH (05:16)
[2023-04-03] MEDS: CITALOPRAM HYDROBROMIDE 20 MG TAB PO SCH (05:16)
[2023-04-03] MEDS: PANTOPRAZOLE 40 MG TABLET PO SCH ×2 (05:16→20:10)
[2023-04-03] MEDS ORDERED: LIDOCAINE 1% (10MG/ML) FOR IV START INTRADERMA PRN (07:57)
[2023-04-03] MEDS ORDERED: HYDROmorphone 0.5 MG/0.5 ML SYRINGE IVP PRN (07:57)
[2023-04-03] MEDS ORDERED: LACTATED RINGERS 1,000 ML IV ONE ×2 (07:59)
[2023-04-03] MEDS: ONDANSETRON 4 MG/2 ML VIAL IVP ONE ×2 (08:48→15:22)
[2023-04-03] MEDS: DEXAMETHASONE SOD PHOSPHATE 4 MG/ML 1 ML VIAL IV ONE ×2 (08:48→15:22)
[2023-04-03] MEDS ORDERED: MIDAZOLAM 2 MG/2 ML VIAL IVP ONE (09:00)
[2023-04-03] MEDS ORDERED: fentaNYL (PF) 50 MCG/ML 2 ML AMP IVP ONE (09:02)
[2023-04-03] MEDS ORDERED: ROCURONIUM 10 MG/ML (5 ML VIAL) IV ONE (09:31)
[2023-04-03] MEDS ORDERED: LIDOCAINE 2% INJ 20 MG/ML (2 ML VIAL) ONE (09:31)
[2023-04-03] MEDS ORDERED: PROPOFOL 10 MG/ML 20 ML VIAL IV ONE (09:31)
[2023-04-03] MEDS ORDERED: ePHEDrine 50 MG/ML 1 ML VIAL ONE (09:31)
[2023-04-03] MEDS ORDERED: fentaNYL (PF) 50 MCG/ML 2 ML AMP ONE (09:31)
[2023-04-03] MEDS ORDERED: HYDROmorphone (PF) 1 MG/ML ONE (09:31)
[2023-04-03] MEDS ORDERED: HEPARIN SODIUM,PORCINE 5,000 UNIT/ML 1 ML VIAL ONE (09:31)
[2023-04-03] MEDS ORDERED: HEPARIN SODIUM,PORCINE 10,000 UNIT/ML 1 ML VIAL ONE (09:31)
[2023-04-03] MEDS ORDERED: GLYCOPYRROLATE 0.2 MG/ML 2 ML VIAL ONE (09:31)
[2023-04-03] MEDS ORDERED: PHENYLEPHRINE-0.9% NACL SYG 1,000 MCG/10 ML SYRINGE ONE (09:31)
[2023-04-03] MEDS ORDERED: NEOSTIGMINE 1 MG/ML 10 ML VIAL ONE (09:31)
[2023-04-03] MEDS ORDERED: SUCCINYLCHOLINE CHLORIDE 200 MG/10 ML VIAL IV ONE (09:31)
[2023-04-03] MEDS ORDERED: THROMBIN (BOVINE) 5,000 UNIT VIAL TOPICAL ONE (10:20)
[2023-04-03] MEDS ORDERED: GELATIN SPONGE,ABSORB (LARGE) 1 EACH SPONGE TOPICAL ONE (10:20)
--- NOTE | 2023-04-03 10:23 | P.ANPRN ---
Procedure Note - Anesthesia - Invasive Line Right Arterial Line Time Out Performed: Yes ([id number]) Date of Procedure: 04/03/23 Time of Procedure: 09:14 Location of Patient: PreOp Preparation: Sterile Prep, Sterile Dressing Arterial Line Location: Radial (right) Ultrasound Used: Yes Purpose - Visualization and Identification of Vasculature: Yes Needle Guage: 20g Image Stored and Saved: No Narrative: Central line placement per sterile protocol utilized. attempt by dr mckenna on right side. Asked to assist. +US one attempt right radial arterial line. Lumen bled and flushed. Secured and dressed
[2023-04-03] MEDS ORDERED: HEPARIN SODIUM (1,000 UNIT/ML) 2,000 UNIT in SODIUM CHLORIDE 0.9% 1,000 ML IRRIGATION ONE (10:24)
[2023-04-03] MEDS ORDERED: ceFAZolin 2 GM in SODIUM CHLORIDE 0.9% 500 ML 500 ML IRRIGATION ONE (10:25)
[2023-04-03] MEDS ORDERED: BENZOCAINE/MENTHOL LOZENG 1 EACH LOZENGE MUCOUS MEM PRN (13:00)
[2023-04-03] MEDS ORDERED: TRIMETHOBENZAMIDE 100 MG/ML 2 ML VIAL IM PRN (13:00)
[2023-04-03] MEDS ORDERED: ACETAMINOPHEN TAB 325 MG TAB PO PRN (13:00)
[2023-04-03] MEDS ORDERED: MAG HYDROX/AL HYDROX/SIMETH 30 ML CUP PO PRN (13:00)
--- NOTE | 2023-04-03 13:00 | P.OP ---
Date of Procedure: 04/03/23 Description of Procedure: Preoperative Diagnosis: Right Internal carotid artery stenosis, symptomatic Postoperative Diagnosis: Same Procedure: Right carotid endarterectomy with patch angioplasty Anesthesia: GET Surgeon: Mable Romero DO Estimated Blood Loss (ml): 75 IV Fluids: See records Urine Output: See records Specimen: Carotid plaque, right cervical lymph nodes Condition: stable Disposition: PACU Findings and indications: Patient is a 72-year-old male who initially presented with significant weakness a left upper extremity and lower extremity was found to have greater than 50% stenosis of his right internal carotid artery. Due to the symptomatic nature of this it was decided to go forward with a right carotid endarterectomy. He did also have evidence of multifocal areas of ischemia on the MRI of the brain, the transesophageal echo showed no evidence of thrombus at this time patient has been cleared for intervention. Risks and benefits were discussed including but not limited to bleeding, infection and injury to the vessel as well as stroke. He seemingly understood and was willing to proceed. Procedure in detail: After written informed consent was obtained the patient all risks benefits and competitions were described the patient is brought to the operative suite and laid in a supine position. The area of the neck was prepped and draped in usual sterile fashion after appropriate anesthetic was performed per the anesthesiologist. A timeout was performed in normal fashion antibiotics were administered prior to incision. An oblique incision was then created just anterior to the sternocleidomastoid musculature with a 10 blade scalpel and dissection was carried down to the carotid sheath. There was significant adhesion even of the internal jugular into the sheath. The carotid sheath was then entered after facial vein was located and suture ligated in normal fashion. The common carotid, internal carotid, external carotid and superior thyroid arteries were located and dissected free in a meticulous fashion circumferentially and controlled with vessel loops. There was significant adherence at the bulb. Attention was then placed to locating the vagus nerve as well as hypoglossal nerve which were both spared. Once controlled, patient was administered heparin and followed with ACTs for appropriate heparinization. Once ACT was appropriate, the proximal and distal aspects of the dissection were then controlled with vascular clamps. Arteriotomy was then created with 11 blade scalpel and extended with Andrade Bland scissors. Utilizing pressure tubing stump pressures were obtained and were []. No shunt was required. An endarterectomy was then performed with a Cameron elevator. The plaque was transected proximally and then feathered at the distal aspect of the internal carotid artery and removed. The area was copiously irrigated with heparinized saline and all free debris was removed. A 0.8 x 8 cm bovine pericardial patch was then chosen and patch angioplasty was performed with 6-0 Prolene suture in a running fashion. Prior to last sutures being placed the inflow was released flushing any free debris out of the patch. This was reclamped and the internal carotid artery was released revealing good brisk flow and was once again reclamped. The external carotid and superior thyroid artery were then released followed by the common carotid artery to allow any free debris to be flushed into the external system. Final sutures were placed and secured. Internal carotid artery control was then released. Good pulsatile flow was noted through the patch and a Doppler was utilized demonstrating good brisk flow into the internal, external carotid arteries without any signs of obstruction. Hemostasis was then assured with interrupted sutures of 6-0 Prolene as well as thrombin and Gelfoam. A 10-[place] SAMANTHA drain was then placed in normal fashion and secured with 3-0 nylon suture. The incision was then closed in a multilayer fashion after hemostasis was assured. The skin was then cleansed and dressings were placed. Patient tolerated the procedure well and was following commands and moving all extremities. Patient was then sent to PACU for recovery.
[2023-04-03] MEDS: PHENYLEPHRINE 40 MG in SODIUM CHLORIDE 0.9% 250 ML IV SCH ×2 (13:01→15:00)
[2023-04-03 13:24] LABS: HCT 34.3 % (39.0-53.0); HGB 11.6 gm/dL (13.0-17.5); MCH 31.6 pg (25.0-35.0); MCHC 33.8 g/dL (31.0-37.0); MCV 93.5 fL (80.0-100.0); Mean Platelet Volume 8.4; Platelet Count 258 k/uL (150-450); RBC 3.67 m/uL (4.30-5.90); RDW 13.8 % (11.5-15.5); WBC 11.2 k/uL (3.8-10.6)
[2023-04-03] MEDS ORDERED: TERBUTALINE 1 MG/ML VIAL SQ ONE (13:44)
[2023-04-03 14:14] LABS: African American GFR (CKD) 77 (>60 ml/min/1.73 sqM); Anion Gap 9 mmol/L; Blood Urea Nitrogen 16 mg/dL (9-20); Calcium 8.3 mg/dL (8.4-10.2); Carbon Dioxide 20 mmol/L (22-30); Chloride 109 mmol/L (98-107); Glucose 148 mg/dL (74-99); Non-African American GFR(CKD) 67 (>60 ml/min/1.73 sqM); Potassium 3.6 mmol/L (3.5-5.1); Sodium 138 mmol/L (137-145)
--- NOTE | 2023-04-03 15:03 | P.PN ---
Subjective Progress Note Date: 04/03/23 73-year-old male who was seen in the emergency department, on March 27, for possible CVA. He apparently came in with left arm and left leg numbness, and facial droop. His initial NIH score was 12. The patient had a computed tomography scan of the brain, and there was no bleeding, and hence, he received TPA. Currently, he is resting comfortably in the intensive care unit. He seen in room 254. The patient is doing much better, and is almost completely back to normal. He's currently on room air. He is getting saline at 100 mL an hour. Unfortunately, the patient does continue to smoke cigarettes. He has a history of coronary artery disease, with stenting 7, hypertension, hyperlipidemia, and gastroesophageal reflux disease. The patient apparently is also had a myocardial infarction in the past. The patient has been smoking for many years. White count 11.9, with a normal hemoglobin, hematocrit, and platelet count. Sodium 138, potassium 3.7, chlorides 112, CO2 21, BUN 15, and creatinine 1.0. Brain CT showed atrophy with chronic appearing periventricular white matter ischemic changes, which is stable. No acute intracranial process noted. Chest x-ray was normal. Angiography CT, showed mild narrowing, without significant flow limiting stenosis. Progress note dated 03/29/2023. 72-year-old male who was seen in consultation yesterday, for left-sided stroke symptoms. The patient received TPA in the emergency department, and, has had significant improvement. He seen today in room 254. He's on room air. He is receiving saline at 10 mL an hour. The patient will be going down for a follow- up computed tomography scan of the head, without contrast. He has no new comp laints today. Labs today include a white count 10.9, hemoglobin 13.7, hematocrit 43.3, and a normal platelet count. Sodium 137, potassium 3.9, chlorides 111, CO2 18, BUN 12, creatinine 1.01. 03/30 2023, I'm seeing the patient for a follow-up. The patient is post TPA. Neurologically intact. Moving all 4 extremities. Able to swallow. Left-sided weakness has subsided and the patient is going to have an MRI of the brain today. Echocardiogram that was done on 03/28/2023 showed mild impairment of LV function with an ejection fraction of 40-45% and inferior wall hypokinesis. The patient is known to have coronary artery disease. He has undergone multiple coronary stenting. At the same time there is moderately increased LV wall thickening. No evidence of any pericardial effusion. In terms of medication, the patient is currently on aspirin 325 mg by mouth daily. He is taking [place] f or pain control. He has chronic back pain and he also takes nonsteroidal anti- inflammatory medications. He is on Lipitor high-dose 80 mg by mouth daily. MRI of the brain is to be done today. The BUN 12 with a creatinine of 1. The white cell count is at 10.9 with a hemoglobin 15.7. His LDL cholesterol was was 75. CT angiography that was done on 03/27/2023 showed mild narrowing without any si gnificant flow limitation of the bilateral internal carotid arteries. No other acute vascular abnormalities noted. There is condition is stable for now. Blood pressure is 138/78. On today's examination, the patient continues to have some residual left-sided weakness in the left arm slightly weaker compared to the right. No facial asymmetry. Adequate swallow. On 03/31/2023, patient is being seen for a follow-up. Neurologically stable. Some improvement in the left lower and upper extremity weakness. MRI of the brain was done and the patient was found to have an acute/subacute CVA involving the right thalamus and left parietal/occipital region. Nonspecific white matter changes were also seen. Meanwhile, the carotid Dopplers showed 50-70% carotid artery stenosis bilaterally. Based on those findings, the patient is going to need a ISRAEL to rule out a possibility of embolic phenomena. At the same time, Mr. surgery was consulted and the patient is being contemplated for possibility of a carotid endarterectomy on the right. The labs are all stable. White cell cause of 9.7, hemoglobin was 12.7, normal renal function. Electrolytes all within normal limits. He remains on aspirin 81 mg by mouth daily and heparin subcu. He is also on Brilinta 90 mg by mouth twice a day. 04/01/2023, the patient is neurologically stable and the patient had a failed ISRAEL yesterday and the procedure is to be completed today. No new complaints. No new labs. The patient remains on aspirin and Brilinta for now. The patient was transferred out of the intensive care unit yesterday. On 04/02/2023, the patient has no neurological symptoms and the plan is to proceed with a right carotid endarterectomy tomorrow. For now, the patient is currently on a combination of aspirin and Brilinta. Vascular surgeries on the case. The patient has no headache, no altered mentation, motor function in the left upper extremity is stable and back to its baseline. No new labs are available from today. ISRAEL was done and the patient was found to have a normal LV, normal systolic function, no cardiac sounds, rales were normal. No evidence of any pericardial effusion. On 04/03/2023, the patient is being seen in the intensive care unit. The patient underwent a right carotid endarterectomy with patch angioplasty. Estimated blood loss was 75 mL and the patient is currently being monitored in the ICU. The patient has some limited confusion. No focal neurological deficits. Motor function is adequate in all 4 extremities. No headaches. He is conversing and communicating. He has a SAMANTHA drain in his right neck and up with his minimal at this point in time, bloody. The patient also has an ar terial line and the patient is on Armando-Synephrine 0.7 mg/kg/m to maintain a systolic blood pressure above 120. Cardiac rhythm is sinus. Blood work from earlier this morning showed a hemoglobin of 11.6, white cell count of 11.2, BUN is 16 with a creatinine of 1.1 and his sodium level is at 138. No respiratory distress. Currently is on 4 L of oxygen nasal cannula. Objective - Vital Signs Vital signs: Vital Signs Temp 97.0 F L 04/03/23 13:00 Pulse 85 04/03/23 14:30 Resp 16 04/03/23 14:30 BP 109/57 04/03/23 14:30 Pulse Ox 98 04/03/23 14:30 FiO2 21 03/30/23 08:57 Intake & Output 04/02/23 04/03/23 04/03/23 18:59 06:59 18:59 Intake Total 1052 Output Total 430 Balance 622 Weight 98.18 kg Intake: IV 1052 Output: Urine 330 Estimated Blood Loss 100 Other: Voiding Method Urinal # Voids 1 - Exam No acute distress, oriented 3. Currently on 4 L O2 nasal cannula, adequate oxygenation. No signs of any respiratory distress HEENT examination is grossly unremarkable. Mucous membranes are moist. No oral lesions. Neck supple. Full range of motion. No adenopathy thyromegaly or neck vein distention. Surgical wound over the neck area on the right is clean and the patient has a SAMANTHA drain in place Cardiovascular examination reveals regular rhythm rate. S1-S2 normal. No S3 or S4. No discernible murmur noted. Lungs reveal clear breath sounds. Breath sounds are equal bilaterally. No adve ntitious lung sounds including wheezes rhonchi or crackles. Abdomen soft bowel sounds are heard. No masses or tenderness. Extremities are intact. No cyanosis clubbing or edema. Skin is without rash or lesion. Neurologic examination is brief but nonfocal., There is improvement in motor function in the left upper extremity. I think the motor functions improved compared to yesterday. No new onset focal neurological deficits. No facial asymmetry. Pupils are equal and reactive to light. Slightly confused post anesthesia. - Labs CBC & Chem 7: 04/03/23 13:10 04/03/23 13:10 Labs: Abnormal Lab Results - Last 24 Hours (Table) 04/03/23 04/03/23 Range/Units 13:10 13:10 WBC 11.2 H (3.8-10.6) k/uL RBC 3.67 L (4.30-5.90) m/uL Hgb 11.6 L (13.0-17.5) gm/dL Hct 34.3 L (39.0-53.0) % Chloride 109 H (98-107) mmol/L Carbon Dioxide 20 L (22-30) mmol/L Glucose 148 H (74-99) mg/dL Calcium 8.3 L (8.4-10.2) mg/dL Assessment and Plan Plan: Acute right-sided CVA, with left-sided weakness, and left facial droop, S/P TPA, with near-complete resolution of the patient's symptoms. The patient continues to have some minimal residual left-sided weakness on today's examination. Symptoms are stable on today's evaluation of the patient has no new onset neurological deficit. Follow-up CAT scan of the brain was done on 03/29/2023 showed stable chronic white matter ischemic changes without any acute bleeds. No evidence of any thrombotic stroke either. MRIs showing a right thalamic and left occipital acute/subacute CVA and the carotid Doppler that shown 50-70% stenotic changes bilaterally. The patient completed ISRAEL on 04/01/2023 and the findings of essentially normal. Right carotid endarterectomy with patch angioplasty, postop day #0 CAD, with multiple previous stents. The patient is a preserved LV function, moderate LVH Hypertension. Hyperlipidemia. Previous myocardial infarction. Ongoing tobacco use with nicotine addiction. Gastroesophageal reflux disease. Plan Monitor the output from the SAMANTHA drain Continue same treatment drip for a systolic blood pressure above 120 and titrate the dose Monitor neurologic functions and repeated neurologic examination in the ICU Hemodynamically stable Continue aspirin and Brilinta We'll continue to follow
[2023-04-03 15:05] LABS: Glucose,Whole Blood 189 mg/dL (70-110)
[2023-04-03] MEDS: NICOTINE 14MG/24HR PATCH TRANSDERM SCH (15:22)
[2023-04-03] MEDS: polyethylene glycoL 3350 17 GM POWD.PACK PO SCH (15:22)
[2023-04-03] MEDS: KETOTIFEN 0.025% OPHTH DROPS 5 ML BTL BOTH EYES SCH ×2 (15:22→20:11)
[2023-04-03] MEDS: LACTATED RINGERS 1,000 ML IV SCH ×2 (15:22→16:00)
[2023-04-03] MEDS: HEPARIN SODIUM,PORCINE 5,000 UNIT/ML 1 ML VIAL SQ SCH ×2 (15:22→20:10)
[2023-04-03] MEDS ORDERED: HYDROmorphone 0.5 MG/0.5 ML SYRINGE IVP STA (15:35)
[2023-04-03] MEDS: CYCLOBENZAPRINE 10 MG TAB PO PRN (15:49)
--- NOTE | 2023-04-03 17:14 | P.PN ---
Progress Note - Text Progress Note Date: 04/03/23 Chief Complaint: Left-sided weakness This is a 72-year-old patient who follows with Dr. Felix. History of cardiac arrest. Tonic-clonic seizure. medical conditions include coronary artery disease with stent, GERD, hyperlipidemia, essential hypertension primary osteoar thritis. History of head injury. Hepatitis C. Arthritis. Patient yesterday sent down to eat pizza. Suddenly felt his vision was narrowed. Started feeling off. Left arm became weak. Speech became slurred. He was brought into the ER. In the ER there was left-sided weakness. Facial droop. Given TPA. He was admitted to the ICU and it was improvement in his neurological status. Today feels better. Speech is improved. Significant improvement of the left side. Able to eat his lunch. Seen by neurology. Patient does get charley horses on walking. Sometimes numbness in his feet. Has decreased vision in the left side of the visual field. March 29: ICU. Sitting at the edge of the bed. Eating his lunch. Feeling better. Weakness left side nearly resolved. Speech back to normal. Blood pressure good. Repeat CT brain today without contrast. Unremarkable. March 30: ICU. Sitting up edge of bed eating lunch. As per the patient and the doctor's ex- and daughter both felt to speech is not back to normal. Very slight weakness in the left arm. MRI of the brain did confirm stroke in 2 different areas. ISRAEL ordered. Neto started by neurology. March 31: ICU. Attempted ISRAEL today.) Restless. Postponed for tomorrow with anesthesia. Neurologically patient nearly back his baseline. Restless planning for right carotid surgery this admission. Patient is medically stable to proceed for the same. Discussed with patient. April 01: Patient is seen this morning and late in the day patient underwent a ISRAEL. No shunt or thrombus reported. Patient currently has scheduled right carotid surgery this Thursday. I discussed with Dr. Bejarano from neurology.-He discussed with the patient and vascular, and the patient is keen to proceed for surgery. April 02: Laying in bed. Nothing by mouth. Pending surgery. No new issues. April 03: Patient underwent right carotid endarterectomy and patch by Dr. Romero. Postprocedure laying in bed in ICU. Dressing over the same. Awake comfortable. Romero catheter. Active Medications Acetaminophen (Acetaminophen Tab 325 Mg Tab) 650 mg PO Q4HR PRN PRN Reason: Pain Al Hydroxide/Mg Hydroxide (Mag Hydrox/Al Hydrox/Simeth 30 Ml Cup) 30 ml PO Q6HR PRN PRN Reason: Indigestion Aspirin (Aspirin 81 Mg) 81 mg PO DAILY [facility] Last Admin: 04/03/23 05:16 Dose: 81 mg Atorvastatin Calcium (Atorvastatin 80 Mg Tab) 80 mg PO HS [facility] Last Admin: 04/02/23 20:07 Dose: 80 mg Benzocaine/Menthol (Benzocaine/Menthol Lozeng 1 Each Lozenge) 1 each MUCOUS MEM Q2HR PRN PRN Reason: Sore Throat Citalopram Hydrobromide (Citalopram Hydrobromide 20 Mg Tab) 20 mg PO DAILY [facility] Last Admin: 04/03/23 05:16 Dose: 20 mg Cyclobenzaprine HCl (Cyclobenzaprine 10 Mg Tab) 10 mg PO BID PRN PRN Reason: Muscle Spasm Last Admin: 04/03/23 15:49 Dose: 10 mg Donepezil HCl (Donepezil 10 Mg Tab) 10 mg PO HS [facility] Last Admin: 04/02/23 20:07 Dose: 10 mg Heparin Sodium (Porcine) (Heparin Sodium,Porcine 5,000 Unit/Ml 1 Ml Vial) 5,000 unit SQ Q12HR [facility] Last Admin: 04/03/23 15:22 Dose: Not Given Lactated Ringer's (Lactated Ringers) 1,000 mls @ 20 mls/hr IV .Q24H [facility] Last Admin: 04/03/23 16:00 Dose: 20 mls/hr Phenylephrine HCl 40 mg/ (Sodium Chloride) 254 mls @ 18.703 mls/hr IV .[id number] [facility]; Protocol Last Titration: 04/03/23 16:05 Dose: 0.7 mcg/kg/min, 26.185 mls/hr Isosorbide Mononitrate (Isosorbide Mononitrate Er 30 Mg Tab.Er.24h) 30 mg PO DAILY [facility] Last Admin: 04/03/23 05:16 Dose: 30 mg Ketotifen Fumarate (Ketotifen 0.025% Ophth Drops 5 Ml Btl) 1 drops BOTH EYES BID [facility] Last Admin: 04/03/23 15:22 Dose: Not Given Lidocaine HCl (Lidocaine 1% (10mg/Ml) For Iv Start) 0.1 ml INTRADERMA PER PROTOCOL PRN PRN Reason: IV Start Loratadine (Loratadine 10 Mg Tab) 10 mg PO DAILY [facility] Last Admin: 04/03/23 05:16 Dose: 10 mg Lorazepam (Lorazepam 1 Mg Tab) 1 mg PO Q8HR PRN PRN Reason: Anxiety Last Admin: 03/29/23 01:21 Dose: 1 mg Miscellaneous Information (Potassium Replacement Protocol 1 Each Misc) 1 each MISCELLANE DAILY PRN; Protocol PRN Reason: Per Protocol Naloxone HCl (Naloxone 0.4 Mg/Ml 1 Ml Vial) 0.2 mg IV Q2M PRN PRN Reason: Opioid Reversal Nicotine (Nicotine 14mg/24hr Patch) 1 patch TRANSDERM DAILY [facility] Last Admin: 04/03/23 15:22 Dose: Not Given Oxycodone/Acetaminophen (Oxycodone-Apap 10-325mg 1 Each Tab) 1 each PO Q6HR PRN PRN Reason: Pain Last Admin: 04/03/23 15:48 Dose: 1 each Pantoprazole Sodium (Pantoprazole 40 Mg Tablet) 40 mg PO BID [facility] Last Admin: 04/03/23 05:16 Dose: 40 mg Polyethylene Glycol (Polyethylene Glycol 3350 17 Gm Powd.Pack) 17 gm PO DAILY [facility] Last Admin: 04/03/23 15:22 Dose: Not Given Potassium Chloride (Potassium Chloride Er 20 Meq Tab.Er) 20 meq PO Q1HR [facility]; Protocol Stop: 04/03/23 18:01 Temazepam (Temazepam 15 Mg Cap) 30 mg PO HS [facility] Last Admin: 04/02/23 20:06 Dose: 30 mg Ticagrelor (Ticagrelor 90 Mg Tab) 90 mg PO BID [facility] Last Admin: 04/03/23 04:50 Dose: Not Given Trimethobenzamide HCl (Trimethobenzamide 100 Mg/Ml 2 Ml Vial) 200 mg IM Q4HR PRN PRN Reason: Nausea And Vomiting Past medical history to include: Concussion, possible tonic-clonic seizure, coronary artery disease with stent, GERD, hyperlipidemia, essential hypertension, primary osteoarthritis, nicotine dependence.. Social history: Lives alone. Smokes a pack a day-several years. Denies alcohol. Physical examination: VITAL SIGNS: 97.7, 94, 16, 106/57, 98% on 4 L GENERAL: Laying in bed, comfortable EYES: Pupils equal. Conjunctiva normal. HEENT: External appearance of nose and ears normal, oral cavity grossly normal. Dressing over the right carotid surgical site NECK: JVD not raised; masses not palpable. HEART: First and second heart sounds are normal; no edema. Decreased dorsalis pedis. LUNGS: Respiratory rate normal; decreased breath sounds. ABDOMEN: Soft, nontender, liver spleen not palpable, no masses palpable. PSYCH: Alert and oriented x3; mood and affect anxious. NEUROLOGICAL: Mouth slightly pulled over to the left, left arm power improved. Abnormal sensation left side of the face. Speech any back to normal MUSCULAR skeletal: Evidence of OA. INVESTIGATIONS, reviewed in the clinical context: April 03: White count 11.2 hemoglobin 11.6 potassium 3.6 creatinine 1.10 ISRAEL: Bubble study was negative for any shunting. No embolic source was detected. March 31: White count 9.7 hemoglobin 12.7 potassium 3.6 creatinine 0.9 to Carotid Doppler: 50-69% reduction suggested bilaterally. MRI brain without contrast: Acute/subacute CVA involving the right thalamus and the left parietal occipital region. Some nonspecific) changes. March 29: White count 10.9 hemoglobin 13.7 potassium 3.9 creatinine 1.01 LDL 75 March 28: White count 11.9 hemoglobin 14.1 platelets 238 sodium 138 potassium 3.7 BUN 15 creatinine 1.0 LDL 75 EKG tracing personally reviewed by me-normal sinus rhythm. PVC. Chest x-ray film personally reviewed by me-portable. Underpenetrated. Some cardiomegaly. CT brain: Without contrast: Atrophy with chronic-appearing white matter ischemic changes. CT angiogram to neck: Mild narrowing without significant evidence for close limiting stenosis bilateral internal carotid artery origins. Assessment and plan: -Acute stroke possibly embolic or ischemic: Involving the right thalamus and the left parietal/occipital region. Status post TPA. Neurology following. Aspirin. Brillinta ISRAEL : Negative for shunting or embolic source. -Right carotid stenosis. Right endarterectomy patch done by Dr. Agustina Romero April 03. -Coronary artery disease with stent Aspirin. -GERD PPI -Hyperlipidemia Increase Lipitor to 80 mg daily at bedtime. -Essential hypertension Follow blood pressure closely -Primary osteoarthritis Percocet when necessary -Chronic nicotine dependence patient cigarette smoker Nicotine patch Surgical. In ICU. Follow. Discussed. Past Medical History Past Medical History: Coronary Artery Disease (CAD), CVA/TIA, GERD/Reflux, Hyperlipidemia, Hypertension, Liver Disease, Myocardial Infarction ([place]), Vascular Disorder Additional Past Medical History / Comment(s): Patient states he was admitted to the hospital January after a fall with head injury/new onset seizures and was hospitalized at [facility] [place] in [place]. He was on life support and was extubated and had one more seizure. 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 Patient states he has Hepatitis C. Last Myocardial Infarction Date:: 2011 History of Any Multi-Drug Resistant Organisms: None Reported Past Surgical History: Heart Catheterization With Stent, Orthopedic Surgery Additional Past Surgical History / Comment(s): PCI with a total of 7 stents per pt, L caratid endartectomy, L shoulder surgery for injury, R knee/R hip/R elbow/R wrist ligament/tendon type surgeries injuries-has pins in hand, colonoscopy. Past Anesthesia/Blood Transfusion Reactions: No Reported Reaction Date of Last Stent Placement:: 2011 Past Psychological History: Anxiety Smoking Status: Current every day smoker Past Alcohol Use History: None Reported Past Drug Use History: Marijuana - Past Family History Father Family Medical History: CVA/TIA Additional Family Medical History / Comment(s): Father is from CVA. Pt states father from "stupidity." Mother Family Medical History: Diabetes Mellitus Additional Family Medical History / Comment(s): Mother from diabetes at the age of 52 yrs. Brother(s) Family Medical History: Diabetes Mellitus Additional Family Medical History / Comment(s): Brother at the age of 32 yrs from type 1 diabetes. Medications and Allergies Home Medications Medication Instructions Recorded Confirmed Type Isosorbide Mononitrate ER [Imdur] 30 mg PO DAILY 09/07/17 03/27/23 History lisinopriL [Zestril] 10 mg PO DAILY 09/07/17 03/27/23 History Aspirin 81 mg PO DAILY #1 chewable 02/27/19 03/27/23 Rx Donepezil [Aricept] 10 mg PO HS 04/11/19 03/27/23 History Temazepam [Restoril] 30 mg PO HS 04/11/19 03/27/23 History amLODIPine [Norvasc] 5 mg PO DAILY 04/11/19 03/27/23 History Atorvastatin [Lipitor] 40 mg PO DAILY 03/22/23 03/27/23 History Citalopram Hydrobromide [CeleXA] 20 mg PO DAILY 03/22/23 03/27/23 History Clopidogrel [Plavix] 75 mg PO DAILY 03/22/23 03/27/23 History Cyclobenzaprine [Flexeril] 10 mg PO BID PRN 03/22/23 03/27/23 History LORazepam [Ativan] 1 mg PO TID 03/22/23 03/27/23 History Olopatadine HCl [Patanol 0.1%] 1 drop BOTH EYES TID 03/22/23 03/27/23 History Pantoprazole Sodium [Protonix] 20 mg PO BID 03/22/23 03/27/23 History oxyCODONE-APAP 10-325MG [Percocet 1 tab PO QID 03/22/23 03/27/23 History 10-325 mg] Allergies Allergy/AdvReac Type Severity Reaction Status Date / Time alprazolam [From Xanax] Allergy Unknown Verified 03/27/23 16:23 codeine Allergy Rash/Hives Verified 03/27/23 16:23 zolpidem [From Ambien] AdvReac "salty" Verified 03/27/23 16:23 taste in mouth, numb mouth
[2023-04-03] MEDS ORDERED: POTASSIUM CHLORIDE ER 20 MEQ TAB.ER PO SCH (18:00)
[2023-04-03] MEDS: ATORVASTATIN 80 MG TAB PO SCH (20:10)
[2023-04-03] MEDS: TEMAZEPAM 15 MG CAP PO SCH (20:10)
[2023-04-03] MEDS: DONEPEZIL 10 MG TAB PO SCH (21:40)
[2023-04-04] MEDS: oxyCODONE-APAP 10-325MG 1 EACH TAB PO PRN ×4 (03:51→22:10)
[2023-04-04 05:44] LABS: HCT 33.7 % (39.0-53.0); HGB 10.9 gm/dL (13.0-17.5); MCH 30.4 pg (25.0-35.0); MCHC 32.3 g/dL (31.0-37.0); MCV 94.2 fL (80.0-100.0); Mean Platelet Volume 9.6; Platelet Count 260 k/uL (150-450); RBC 3.58 m/uL (4.30-5.90); WBC 15.1 k/uL (3.8-10.6)
[2023-04-04 05:53] LABS: African American GFR (CKD) 80 (>60 ml/min/1.73 sqM); Anion Gap 6 mmol/L; Blood Urea Nitrogen 19 mg/dL (9-20); Calcium 8.9 mg/dL (8.4-10.2); Carbon Dioxide 22 mmol/L (22-30); Chloride 108 mmol/L (98-107); Glucose 178 mg/dL (74-99); Non-African American GFR(CKD) 70 (>60 ml/min/1.73 sqM); Sodium 136 mmol/L (137-145)
[2023-04-04] MEDS: TICAGRELOR 90 MG TAB PO SCH ×2 (08:06→21:03)
[2023-04-04] MEDS: PANTOPRAZOLE 40 MG TABLET PO SCH ×2 (08:06→21:03)
[2023-04-04] MEDS: LORATADINE 10 MG TAB PO SCH (08:06)
[2023-04-04] MEDS: CITALOPRAM HYDROBROMIDE 20 MG TAB PO SCH (08:06)
[2023-04-04] MEDS: polyethylene glycoL 3350 17 GM POWD.PACK PO SCH ×2 (08:06→08:16)
[2023-04-04] MEDS: HEPARIN SODIUM,PORCINE 5,000 UNIT/ML 1 ML VIAL SQ SCH ×2 (08:06→21:03)
[2023-04-04] MEDS: ASPIRIN 81 MG PO SCH (08:06)
[2023-04-04] MEDS: KETOTIFEN 0.025% OPHTH DROPS 5 ML BTL BOTH EYES SCH ×2 (08:06→21:05)
[2023-04-04] MEDS: NICOTINE 14MG/24HR PATCH TRANSDERM SCH (08:07)
[2023-04-04] MEDS: ISOSORBIDE MONONITRATE ER 30 MG TAB.ER.24H PO SCH (08:08)
[2023-04-04] MEDS: LORazepam 1 MG TAB PO PRN ×2 (08:23→17:26)
--- NOTE | 2023-04-04 11:20 | P.PN ---
Subjective Progress Note Date: 04/04/23 I am following-up with patient and yesterday he had right carotid endarterectomy and today he feels he is doing great and denies of any new neurological issues. Objective - Vital Signs Vital signs: Vital Signs Temp 99 F 04/04/23 08:00 Pulse 60 04/04/23 11:00 Resp 19 04/04/23 11:00 BP 117/57 04/04/23 11:00 Pulse Ox 94 L 04/04/23 11:00 FiO2 21 03/30/23 08:57 Intake & Output 04/03/23 04/04/23 04/04/23 18:59 06:59 18:59 Intake Total 4345.621 0293.275 295.65 Output Total 600 505 245 Balance 1019.095 714.275 50.65 Weight 98.18 kg Intake: IV 1132 260 80 Lactated Ringers 1,000 ml 80 260 80 @ 20 mls/hr IV .Q24H [facility] Rx#:[id number] Intake, IV Titration 87.095 269.275 65.65 Amount Phenylephrine 40 mg In 87.095 269.275 65.65 Sodium Chloride 0.9% 250 ml @ 0.5 MCG/KG/MIN 18. 703 mls/hr IV .[id number] [facility] Rx#:[id number] Oral 400 690 150 Output: Drainage 20 Right Neck 20 Urine 480 505 245 Estimated Blood Loss 100 Other: Voiding Method Indwelling Catheter Indwelling Catheter Indwelling Catheter ABP, PAP, CO, CI - Last Documented Arterial Blood Pressure 104/47 - Exam GENERAL: The patient is sitting in a recliner chair and is not in acute distress. HENT: Has gauze on the right carotid region. NEUROLOGICAL: Higher mental function: The patient is awake, alert, oriented to self, place and time. Patient is following commands. No aphasia and no neglect. Cranial nerves: The pupils are round, equal and reactive to light. Visual stevens are full to confrontation throughout. Extraocular movement is intact no nystagmus is noted. Facial sensation is normal to touch throughout. The facial strength is normal throughout. Tongue is midline and moved sgpm-dl-mlid without any difficulty. No dysarthria is noted. Motor: The strength is limited on the left upper and lower extremity because of left shoulder pain and hip pain. His strength was at least 4+ on left side. Bilateral hand fisher trammel net are 5/5. Otherwise, rest are 5/5. . Normal tone and bulk . Cerebellum: Normal finger to nose bilaterally. Sensation: Stated has left sided numbness. SOME OF THE WORK-UP DURING THIS HOSPITAL VISIT CONSISTED OF: Lipid panel: TG 120, Choles 135, LDL 75 and HDL 35 HbA1c: 6.1 MRI Brain is reported as acute/subacute CVA involving right thalamus/left parietal occipital region. Correlate for embolic phenomenon. Nonspecific white matter changes, likely secondary to small vessel ischemic disease. I personally reviewed it and agree with right thalamus but on left felt more temporal- occipital region. CTA head and neck reported as Mild narrowing without significant flow-limiting stenosis bilateral internal carotid artery. Normal [place]. 2D echo: Is reported as left ventricular ef 40-45% with inferior hypokinesis. Moderate increased left ventricular wall thickness.Moderately increased left atrial volume. Carotid duplex: It is reported as 50-69% diameter reduction suggested bilaterally. ISRAEL on 04/01/2023: It is reported as normal left ventricular size and systolic function. Normal appearance left atrial appendage. No shunting across the anterior atrial septum. Mild mitral tricuspid regurgitation. No pericardial effusion. - Labs CBC & Chem 7: 04/04/23 05:30 04/04/23 05:30 Labs: Abnormal Lab Results - Last 24 Hours (Table) 04/03/23 04/03/23 04/03/23 Range/Units 13:10 13:10 15:04 WBC 11.2 H (3.8-10.6) k/uL RBC 3.67 L (4.30-5.90) m/uL Hgb 11.6 L (13.0-17.5) gm/dL Hct 34.3 L (39.0-53.0) % Sodium (137-145) mmol/L Chloride 109 H (98-107) mmol/L Carbon Dioxide 20 L (22-30) mmol/L Glucose 148 H (74-99) mg/dL POC Glucose (mg/dL) 189 H (70-110) mg/dL Calcium 8.3 L (8.4-10.2) mg/dL 04/04/23 04/04/23 Range/Units 05:30 05:30 WBC 15.1 H (3.8-10.6) k/uL RBC 3.58 L (4.30-5.90) m/uL Hgb 10.9 L (13.0-17.5) gm/dL Hct 33.7 L (39.0-53.0) % Sodium 136 L (137-145) mmol/L Chloride 108 H (98-107) mmol/L Carbon Dioxide (22-30) mmol/L Glucose 178 H (74-99) mg/dL POC Glucose (mg/dL) (70-110) mg/dL Calcium (8.4-10.2) mg/dL Assessment and Plan Assessment: This is a 72 y/o gentleman who presented with dizziness, headache, not responding. He received IV tpa because of stroke-like symptoms. On MRI he has acute ischemic stroke. Acute ischemic stroke post IV tpa. Stroke involving right thalamus and I felt more left temporal-occipital (was reported by radiologist as parietal- occipital). Is embolic in nature. Unsure if cardiembolic vs artery to artery Bilateral carotid stenosis 50-69% stenosis on duplex (discordant between duplex and CTA. CTA show mild narrowing). Patient stated in past was told has moderate to significant stenosis of right in past. ISRAEL is normal s/p right carotid endarterectomy on 04/03/23 History of multiple TIA's in past History of CA s/p stent History of MA Hypertension Hyperlipidemia X-tobacco use Plan: He was on ASA and Plavix at home. Since he failed those medications, I stopped Plavix and started him on Brilinta 90mg bid and continued ASA but low dose of 81mg daily. Continue Lipitor 80mg daily. Cardiology is on board. ISRAEL is negative. Recommend an event monitor for 30 days. Vascular surgery team is on board. Continue neuro checks Cardiac monitoring. So far he is in sinus rhythm per tele-monitoring staff. PT, OT and FISH TRAPPER are consulted. Will defer the rest of medical management to primary team. For DVT prophylaxis: On subq heparin 5000U every 12 hours. The plan is discussed with patient. There is no further neurological work-up. Will sign off. Please notify neurology team if any further concerns. Time with Patient: Less than 30
--- NOTE | 2023-04-04 11:29 | P.PN ---
Subjective Progress Note Date: 04/04/23 73-year-old male who was seen in the emergency department, on March 27, for possible CVA. He apparently came in with left arm and left leg numbness, and facial droop. His initial NIH score was 12. The patient had a computed tomography scan of the brain, and there was no bleeding, and hence, he received TPA. Currently, he is resting comfortably in the intensive care unit. He seen in room 254. The patient is doing much better, and is almost completely back to normal. He's currently on room air. He is getting saline at 100 mL an hour. Unfortunately, the patient does continue to smoke cigarettes. He has a history of coronary artery disease, with stenting 7, hypertension, hyperlipidemia, and gastroesophageal reflux disease. The patient apparently is also had a myocardial infarction in the past. The patient has been smoking for many years. White count 11.9, with a normal hemoglobin, hematocrit, and platelet count. Sodium 138, potassium 3.7, chlorides 112, CO2 21, BUN 15, and creatinine 1.0. Brain CT showed atrophy with chronic appearing periventricular white matter ischemic changes, which is stable. No acute intracranial process noted. Chest x-ray was normal. Angiography CT, showed mild narrowing, without significant flow limiting stenosis. Progress note dated 03/29/2023. 72-year-old male who was seen in consultation yesterday, for left-sided stroke symptoms. The patient received TPA in the emergency department, and, has had significant improvement. He seen today in room 254. He's on room air. He is receiving saline at 10 mL an hour. The patient will be going down for a follow- up computed tomography scan of the head, without contrast. He has no new comp laints today. Labs today include a white count 10.9, hemoglobin 13.7, hematocrit 43.3, and a normal platelet count. Sodium 137, potassium 3.9, chlorides 111, CO2 18, BUN 12, creatinine 1.01. 03/30 2023, I'm seeing the patient for a follow-up. The patient is post TPA. Neurologically intact. Moving all 4 extremities. Able to swallow. Left-sided weakness has subsided and the patient is going to have an MRI of the brain today. Echocardiogram that was done on 03/28/2023 showed mild impairment of LV function with an ejection fraction of 40-45% and inferior wall hypokinesis. The patient is known to have coronary artery disease. He has undergone multiple coronary stenting. At the same time there is moderately increased LV wall thickening. No evidence of any pericardial effusion. In terms of medication, the patient is currently on aspirin 325 mg by mouth daily. He is taking [place] f or pain control. He has chronic back pain and he also takes nonsteroidal anti- inflammatory medications. He is on Lipitor high-dose 80 mg by mouth daily. MRI of the brain is to be done today. The BUN 12 with a creatinine of 1. The white cell count is at 10.9 with a hemoglobin 15.7. His LDL cholesterol was was 75. CT angiography that was done on 03/27/2023 showed mild narrowing without any si gnificant flow limitation of the bilateral internal carotid arteries. No other acute vascular abnormalities noted. There is condition is stable for now. Blood pressure is 138/78. On today's examination, the patient continues to have some residual left-sided weakness in the left arm slightly weaker compared to the right. No facial asymmetry. Adequate swallow. On 03/31/2023, patient is being seen for a follow-up. Neurologically stable. Some improvement in the left lower and upper extremity weakness. MRI of the brain was done and the patient was found to have an acute/subacute CVA involving the right thalamus and left parietal/occipital region. Nonspecific white matter changes were also seen. Meanwhile, the carotid Dopplers showed 50-70% carotid artery stenosis bilaterally. Based on those findings, the patient is going to need a ISRAEL to rule out a possibility of embolic phenomena. At the same time, Mr. surgery was consulted and the patient is being contemplated for possibility of a carotid endarterectomy on the right. The labs are all stable. White cell cause of 9.7, hemoglobin was 12.7, normal renal function. Electrolytes all within normal limits. He remains on aspirin 81 mg by mouth daily and heparin subcu. He is also on Brilinta 90 mg by mouth twice a day. 04/01/2023, the patient is neurologically stable and the patient had a failed ISRAEL yesterday and the procedure is to be completed today. No new complaints. No new labs. The patient remains on aspirin and Brilinta for now. The patient was transferred out of the intensive care unit yesterday. On 04/02/2023, the patient has no neurological symptoms and the plan is to proceed with a right carotid endarterectomy tomorrow. For now, the patient is currently on a combination of aspirin and Brilinta. Vascular surgeries on the case. The patient has no headache, no altered mentation, motor function in the left upper extremity is stable and back to its baseline. No new labs are available from today. ISRAEL was done and the patient was found to have a normal LV, normal systolic function, no cardiac sounds, rales were normal. No evidence of any pericardial effusion. On 04/03/2023, the patient is being seen in the intensive care unit. The patient underwent a right carotid endarterectomy with patch angioplasty. Estimated blood loss was 75 mL and the patient is currently being monitored in the ICU. The patient has some limited confusion. No focal neurological deficits. Motor function is adequate in all 4 extremities. No headaches. He is conversing and communicating. He has a SAMANTHA drain in his right neck and up with his minimal at this point in time, bloody. The patient also has an ar terial line and the patient is on Armando-Synephrine 0.7 mg/kg/m to maintain a systolic blood pressure above 120. Cardiac rhythm is sinus. Blood work from earlier this morning showed a hemoglobin of 11.6, white cell count of 11.2, BUN is 16 with a creatinine of 1.1 and his sodium level is at 138. No respiratory distress. Currently is on 4 L of oxygen nasal cannula. 04/04/2023, the patient is postop day #1. The patient has minimal amount of output from the SAMANTHA drain. Surgical wound over the right neck area dry clean and intact. The patient remains on Armando-Synephrine 0.2 mcg/kg/h. The patient and Brilinta and the patient is also on aspirin. Hemodynamically stable. No focal neurological deficit. He has adequate motor function in all 4 extremities. No headaches. No altered mentation. No confusion. He is alert and oriented 3. The white second of 15.1, hemoglobin is at 10 and a BUN is 19 with a creatinine of 1.07 and sodium levels of 13 6. His tolerating diet. Objective - Vital Signs Vital signs: Vital Signs Temp 99 F 04/04/23 08:00 Pulse 54 L 04/04/23 08:00 Resp 20 04/04/23 08:00 BP 129/58 04/04/23 08:00 Pulse Ox 96 04/04/23 08:00 FiO2 21 03/30/23 08:57 Intake & Output 04/03/23 04/04/23 04/04/23 18:59 06:59 18:59 Intake Total 6226.228 7201.275 80.6 Output Total 600 505 60 Balance 1019.095 714.275 20.6 Weight 98.18 kg Intake: IV 1132 260 20 Lactated Ringers 1,000 ml 80 260 20 @ 20 mls/hr IV .Q24H [facility] Rx#:[id number] Intake, IV Titration 87.095 269.275 60.6 Amount Phenylephrine 40 mg In 87.095 269.275 60.6 Sodium Chloride 0.9% 250 ml @ 0.5 MCG/KG/MIN 18. 703 mls/hr IV .[id number] [facility] Rx#:[id number] Oral 400 690 Output: Drainage 20 Right Neck 20 Urine 480 505 60 Estimated Blood Loss 100 Other: Voiding Method Indwelling Catheter Indwelling Catheter ABP, PAP, CO, CI - Last Documented Arterial Blood Pressure 115/49 - Exam No acute distress, oriented 3. Currently on 4 L O2 nasal cannula, adequate oxygenation. No signs of any respiratory distress HEENT examination is grossly unremarkable. Mucous membranes are moist. No oral lesions. Neck supple. Full range of motion. No adenopathy thyromegaly or neck vein distention. Surgical wound over the neck area on the right is clean and the patient has a SAMANTHA drain in place Cardiovascular examination reveals regular rhythm rate. S1-S2 normal. No S3 or S4. No discernible murmur noted. Lungs reveal clear breath sounds. Breath sounds are equal bilaterally. No adventitious lung sounds including wheezes rhonchi or crackles. Abdomen soft bowel sounds are heard. No masses or tenderness. Extremities are intact. No cyanosis clubbing or edema. Skin is without rash or lesion. Neurologic examination is brief but nonfocal., There is improvement in motor function in the left upper extremity. I think the motor functions improved compared to yesterday. No new onset focal neurological deficits. No facial asymmetry. Pupils are equal and reactive to light. Slightly confused post anesthesia. - Labs CBC & Chem 7: 04/04/23 05:30 09/16/23 05:30 Labs: Abnormal Lab Results - Last 24 Hours (Table) 04/03/23 04/03/23 04/03/23 Range/Units 13:10 13:10 15:04 WBC 11.2 H (3.8-10.6) k/uL RBC 3.67 L (4.30-5.90) m/uL Hgb 11.6 L (13.0-17.5) gm/dL Hct 34.3 L (39.0-53.0) % Sodium (137-145) mmol/L Chloride 109 H (98-107) mmol/L Carbon Dioxide 20 L (22-30) mmol/L Glucose 148 H (74-99) mg/dL POC Glucose (mg/dL) 189 H (70-110) mg/dL Calcium 8.3 L (8.4-10.2) mg/dL 04/04/23 04/04/23 Range/Units 05:30 05:30 WBC 15.1 H (3.8-10.6) k/uL RBC 3.58 L (4.30-5.90) m/uL Hgb 10.9 L (13.0-17.5) gm/dL Hct 33.7 L (39.0-53.0) % Sodium 136 L (137-145) mmol/L Chloride 108 H (98-107) mmol/L Carbon Dioxide (22-30) mmol/L Glucose 178 H (74-99) mg/dL POC Glucose (mg/dL) (70-110) mg/dL Calcium (8.4-10.2) mg/dL Assessment and Plan Plan: Acute right-sided CVA, with left-sided weakness, and left facial droop, S/P TPA, with near-complete resolution of the patient's symptoms. The patient continues to have some minimal residual left-sided weakness on today's examination. Symptoms are stable on today's evaluation of the patient has no new onset neurological deficit. Follow-up CAT scan of the brain was done on 03/29/2023 showed stable chronic white matter ischemic changes without any acute bleeds. No evidence of any thrombotic stroke either. MRIs showing a right thalamic and left occipital acute/subacute CVA and the carotid Doppler that shown 50-70% stenotic changes bilaterally. The patient completed ISRAEL on 04/01/2023 and the findings of essentially normal. Right carotid endarterectomy with patch angioplasty, postop day #1 SAMANTHA drain output is minimal CAD, with multiple previous stents. The patient is a preserved LV function, moderate LVH Hypertension. Hyperlipidemia. Previous myocardial infarction. Ongoing tobacco use with nicotine addiction. Gastroesophageal reflux disease. Plan Monitor the output from the SAMANTHA drain, the drain will likely, today Titrate Armando-Synephrine discontinue Monitor neurologic functions and repeated neurologic examination in the ICU Hemodynamically stable Continue aspirin and Brilinta We'll continue to follow Should be able to transfer out of the intensive care unit
--- NOTE | 2023-04-04 16:29 | P.PN ---
Subjective Progress Note Date: 04/04/23 Principal diagnosis: carotid stenosis, CVA patient seen and examined. Doing well and denies any lateralizing symptoms. blood pressure controlled, weaning off IV meds. Some discomfort at the incision site. Objective - Vital Signs Vital signs: Vital Signs Temp 98.9 F 04/04/23 16:00 Pulse 64 04/04/23 16:00 Resp 11 L 04/04/23 16:00 BP 114/81 04/04/23 16:00 Pulse Ox 96 04/04/23 16:00 FiO2 21 03/30/23 08:57 Intake & Output 04/03/23 04/04/23 04/04/23 18:59 06:59 18:59 Intake Total 2000.441 8541.275 635.798 Output Total 600 505 345 Balance 1019.095 714.275 290.798 Weight 98.18 kg Intake: IV 1132 260 180 Lactated Ringers 1,000 ml 80 260 180 @ 20 mls/hr IV .Q24H [facility] Rx#:[id number] Intake, IV Titration 87.095 269.275 105.798 Amount Phenylephrine 40 mg In 87.095 269.275 105.798 Sodium Chloride 0.9% 250 ml @ 0.5 MCG/KG/MIN 18. 703 mls/hr IV .[id number] [facility] Rx#:[id number] Oral 400 690 350 Output: Drainage 20 Right Neck 20 Urine 480 505 345 Estimated Blood Loss 100 Other: Voiding Method Indwelling Catheter Indwelling Catheter Indwelling Catheter ABP, PAP, CO, CI - Last Documented Arterial Blood Pressure 117/80 - Exam incision healing well. mild tenderness no focal deficits, tongue midline - Constitutional General appearance: Present: average body habitus, cooperative - Respiratory Respiratory: bilateral: CTA - Cardiovascular Rhythm: regular - Labs CBC & Chem 7: 04/04/23 05:30 04/04/23 05:30 Labs: Abnormal Lab Results - Last 24 Hours (Table) 04/04/23 04/04/23 Range/Units 05:30 05:30 WBC 15.1 H (3.8-10.6) k/uL RBC 3.58 L (4.30-5.90) m/uL Hgb 10.9 L (13.0-17.5) gm/dL Hct 33.7 L (39.0-53.0) % Sodium 136 L (137-145) mmol/L Chloride 108 H (98-107) mmol/L Glucose 178 H (74-99) mg/dL Assessment and Plan Assessment: 1. Acute ischemic stroke 2. Symptomatic right ICA stenosis s/p right carotid endarterectomy 3. History of multiple TIAs status post left carotid endarterectomy approximately 7 years ago 4. Coronary artery disease status post multiple stents 5. Hypertension 6. Hyperlipidemia 7. Tobacco abuse Plan: ok to wean blood pressure medications. Maintain SBP above 120 increase activity ok for discharge from a vascular [facility]point. follow up with Dr. Romero in 2 weeks.
[2023-04-04 16:59] LABS: Potassium 3.8 mmol/L (3.5-5.1)
--- NOTE | 2023-04-04 17:24 | P.PN ---
Progress Note - Text Progress Note Date: 04/04/23 Chief Complaint: Left-sided weakness This is a 72-year-old patient who follows with Dr. Felix. History of cardiac arrest. Tonic-clonic seizure. medical conditions include coronary artery disease with stent, GERD, hyperlipidemia, essential hypertension primary osteoar thritis. History of head injury. Hepatitis C. Arthritis. Patient yesterday sent down to eat pizza. Suddenly felt his vision was narrowed. Started feeling off. Left arm became weak. Speech became slurred. He was brought into the ER. In the ER there was left-sided weakness. Facial droop. Given TPA. He was admitted to the ICU and it was improvement in his neurological status. Today feels better. Speech is improved. Significant improvement of the left side. Able to eat his lunch. Seen by neurology. Patient does get charley horses on walking. Sometimes numbness in his feet. Has decreased vision in the left side of the visual field. March 29: ICU. Sitting at the edge of the bed. Eating his lunch. Feeling better. Weakness left side nearly resolved. Speech back to normal. Blood pressure good. Repeat CT brain today without contrast. Unremarkable. March 30: ICU. Sitting up edge of bed eating lunch. As per the patient and the doctor's ex- and daughter both felt to speech is not back to normal. Very slight weakness in the left arm. MRI of the brain did confirm stroke in 2 different areas. ISRAEL ordered. Neto started by neurology. March 31: ICU. Attempted ISRAEL today.) Restless. Postponed for tomorrow with anesthesia. Neurologically patient nearly back his baseline. Restless planning for right carotid surgery this admission. Patient is medically stable to proceed for the same. Discussed with patient. April 01: Patient is seen this morning and late in the day patient underwent a ISRAEL. No shunt or thrombus reported. Patient currently has scheduled right carotid surgery this Thursday. I discussed with Dr. Bejarano from neurology.-He discussed with the patient and vascular, and the patient is keen to proceed for surgery. April 02: Laying in bed. Nothing by mouth. Pending surgery. No new issues. April 03: Patient underwent right carotid endarterectomy and patch by Dr. Romero. Postprocedure laying in bed in ICU. Dressing over the same. Awake comfortable. Romero catheter. April 04: ICU. SAMANTHA drain and Romero catheter removed. Diet advanced. No trouble swallowing. Patient has been on Armando-Synephrine drip since yesterday. Breathing stable. Discussed. Increase activity. Active Medications Acetaminophen (Acetaminophen Tab 325 Mg Tab) 650 mg PO Q4HR PRN PRN Reason: Pain Al Hydroxide/Mg Hydroxide (Mag Hydrox/Al Hydrox/Simeth 30 Ml Cup) 30 ml PO Q6HR PRN PRN Reason: Indigestion Aspirin (Aspirin 81 Mg) 81 mg PO DAILY [facility] Last Admin: 04/04/23 08:06 Dose: 81 mg Atorvastatin Calcium (Atorvastatin 80 Mg Tab) 80 mg PO HS [facility] Last Admin: 04/03/23 20:10 Dose: 80 mg Benzocaine/Menthol (Benzocaine/Menthol Lozeng 1 Each Lozenge) 1 each MUCOUS MEM Q2HR PRN PRN Reason: Sore Throat Last Admin: 04/04/23 09:56 Dose: 1 each Citalopram Hydrobromide (Citalopram Hydrobromide 20 Mg Tab) 20 mg PO DAILY [facility] Last Admin: 04/04/23 08:06 Dose: 20 mg Cyclobenzaprine HCl (Cyclobenzaprine 10 Mg Tab) 10 mg PO BID PRN PRN Reason: Muscle Spasm Last Admin: 04/03/23 15:49 Dose: 10 mg Donepezil HCl (Donepezil 10 Mg Tab) 10 mg PO HS [facility] Last Admin: 04/03/23 21:40 Dose: 10 mg Heparin Sodium (Porcine) (Heparin Sodium,Porcine 5,000 Unit/Ml 1 Ml Vial) 5,000 unit SQ Q12HR [facility] Last Admin: 04/04/23 08:06 Dose: 5,000 unit Lactated Ringer's (Lactated Ringers) 1,000 mls @ 20 mls/hr IV .Q24H [facility] Last Admin: 04/03/23 16:00 Dose: 20 mls/hr Phenylephrine HCl 40 mg/ (Sodium Chloride) 254 mls @ 18.703 mls/hr IV .[id number] [facility]; Protocol Last Titration: 04/04/23 13:52 Dose: 0.1 mcg/kg/min, 3.741 mls/hr Isosorbide Mononitrate (Isosorbide Mononitrate Er 30 Mg Tab.Er.24h) 30 mg PO DAILY [facility] Last Admin: 04/04/23 08:08 Dose: Not Given Ketotifen Fumarate (Ketotifen 0.025% Ophth Drops 5 Ml Btl) 1 drops BOTH EYES BID [facility] Last Admin: 04/04/23 08:06 Dose: 1 drops Lidocaine HCl (Lidocaine 1% (10mg/Ml) For Iv Start) 0.1 ml INTRADERMA PER PROTOCOL PRN PRN Reason: IV Start Loratadine (Loratadine 10 Mg Tab) 10 mg PO DAILY [facility] Last Admin: 04/04/23 08:06 Dose: 10 mg Lorazepam (Lorazepam 1 Mg Tab) 1 mg PO Q8HR PRN PRN Reason: Anxiety Last Admin: 04/04/23 08:23 Dose: 1 mg Miscellaneous Information (Potassium Replacement Protocol 1 Each Misc) 1 each MISCELLANE DAILY PRN; Protocol PRN Reason: Per Protocol Naloxone HCl (Naloxone 0.4 Mg/Ml 1 Ml Vial) 0.2 mg IV Q2M PRN PRN Reason: Opioid Reversal Nicotine (Nicotine 14mg/24hr Patch) 1 patch TRANSDERM DAILY [facility] Last Admin: 04/04/23 08:07 Dose: Not Given Oxycodone/Acetaminophen (Oxycodone-Apap 10-325mg 1 Each Tab) 1 each PO Q6HR PRN PRN Reason: Pain Last Admin: 04/04/23 15:19 Dose: 1 each Pantoprazole Sodium (Pantoprazole 40 Mg Tablet) 40 mg PO BID [facility] Last Admin: 04/04/23 08:06 Dose: 40 mg Polyethylene Glycol (Polyethylene Glycol 3350 17 Gm Powd.Pack) 17 gm PO DAILY [facility] Last Admin: 04/04/23 08:16 Dose: Not Given Temazepam (Temazepam 15 Mg Cap) 30 mg PO HS [facility] Last Admin: 04/03/23 20:10 Dose: 30 mg Ticagrelor (Ticagrelor 90 Mg Tab) 90 mg PO BID [facility] Last Admin: 04/04/23 08:06 Dose: 90 mg Trimethobenzamide HCl (Trimethobenzamide 100 Mg/Ml 2 Ml Vial) 200 mg IM Q4HR PRN PRN Reason: Nausea And Vomiting Past medical history to include: Concussion, possible tonic-clonic seizure, coronary artery disease with stent, GERD, hyperlipidemia, essential hypertension, primary osteoarthritis, nicotine dependence.. Social history: Lives alone. Smokes a pack a day-several years. Denies alcohol. Physical examination: VITAL SIGNS: 98.9, 64, 11, 111/81, 96% room air GENERAL: Laying in bed, comfortable EYES: Pupils equal. Conjunctiva normal. HEENT: External appearance of nose and ears normal, oral cavity grossly normal. Dressing over the right carotid surgical site NECK: JVD not raised; masses not palpable. HEART: First and second heart sounds are normal; no edema. Decreased dorsalis pedis. LUNGS: Respiratory rate normal; decreased breath sounds. ABDOMEN: Soft, nontender, liver spleen not palpable, no masses palpable. PSYCH: Alert and oriented x3; mood and affect anxious. NEUROLOGICAL: Mouth slightly pulled over to the left, left arm power improved. Abnormal sensation left side of the face. Speech any back to normal MUSCULAR skeletal: Evidence of OA. INVESTIGATIONS, reviewed in the clinical context: April 04: White count 15.1 hemoglobin 10.9 platelets 260 potassium 4 BUN 19 creatinine 1.07 April 03: White count 11.2 hemoglobin 11.6 potassium 3.6 creatinine 1.10 ISRAEL: Bubble study was negative for any shunting. No embolic source was detected. March 31: White count 9.7 hemoglobin 12.7 potassium 3.6 creatinine 0.9 to Carotid Doppler: 50-69% reduction suggested bilaterally. MRI brain without contrast: Acute/subacute CVA involving the right thalamus and the left parietal occipital region. Some nonspecific) changes. March 29: White count 10.9 hemoglobin 13.7 potassium 3.9 creatinine 1.01 LDL 75 March 28: White count 11.9 hemoglobin 14.1 platelets 238 sodium 138 potassium 3.7 BUN 15 creatinine 1.0 LDL 75 EKG tracing personally reviewed by me-normal sinus rhythm. PVC. Chest x-ray film personally reviewed by me-portable. Underpenetrated. Some cardiomegaly. CT brain: Without contrast: Atrophy with chronic-appearing white matter ischemic changes. CT angiogram to neck: Mild narrowing without significant evidence for close limiting stenosis bilateral internal carotid artery origins. Assessment and plan: -Acute stroke possibly embolic or ischemic: Involving the right thalamus and the left parietal/occipital region. Status post TPA. Neurology following. Aspirin. Brillinta ISRAEL : Negative for shunting or embolic source. -Right carotid stenosis. Right endarterectomy patch done by Dr. Agustina Romero April 03. -Coronary artery disease with stent Aspirin. -GERD PPI -Hyperlipidemia Increase Lipitor to 80 mg daily at bedtime. -Essential hypertension Follow blood pressure closely -Primary osteoarthritis Percocet when necessary -Chronic nicotine dependence patient cigarette smoker Nicotine patch Romero catheter SAMANTHA drain discontinued. Tolerating diet. Increase activity. On Armando-Synephrine drip. Being tapered off. Discussed with patient. Past Medical History Past Medical History: Coronary Artery Disease (CAD), CVA/TIA, GERD/Reflux, Hyperlipidemia, Hypertension, Liver Disease, Myocardial Infarction (LA), Vascular Disorder Additional Past Medical History / Comment(s): Patient states he was admitted to the hospital January after a fall with head injury/new onset seizures and was hospitalized at [facility] [place] in [place]. He was on life support and was extubated and had one more seizure. 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 Patient states he has Hepatitis C. Last Myocardial Infarction Date:: 2011 History of Any Multi-Drug Resistant Organisms: None Reported Past Surgical History: Heart Catheterization With Stent, Orthopedic Surgery Additional Past Surgical History / Comment(s): PCI with a total of 7 stents per pt, L caratid endartectomy, L shoulder surgery for injury, R knee/R hip/R elbow/R wrist ligament/tendon type surgeries injuries-has pins in hand, colonoscopy. Past Anesthesia/Blood Transfusion Reactions: No Reported Reaction Date of Last Stent Placement:: 2011 Past Psychological History: Anxiety Smoking Status: Current every day smoker Past Alcohol Use History: None Reported Past Drug Use History: Marijuana - Past Family History Father Family Medical History: CVA/TIA Additional Family Medical History / Comment(s): Father is from CVA. Pt states father from "stupidity." Mother Family Medical History: Diabetes Mellitus Additional Family Medical History / Comment(s): Mother from diabetes at the age of 52 yrs. Brother(s) Family Medical History: Diabetes Mellitus Additional Family Medical History / Comment(s): Brother at the age of 32 yrs from type 1 diabetes. Medications and Allergies Home Medications Medication Instructions Recorded Confirmed Type Isosorbide Mononitrate ER [Imdur] 30 mg PO DAILY 09/07/17 03/27/23 History lisinopriL [Zestril] 10 mg PO DAILY 09/07/17 03/27/23 History Aspirin 81 mg PO DAILY #1 chewable 02/27/19 03/27/23 Rx Donepezil [Aricept] 10 mg PO HS 04/11/19 03/27/23 History Temazepam [Restoril] 30 mg PO HS 04/11/19 03/27/23 History amLODIPine [Norvasc] 5 mg PO DAILY 04/11/19 03/27/23 History Atorvastatin [Lipitor] 40 mg PO DAILY 03/22/23 03/27/23 History Citalopram Hydrobromide [CeleXA] 20 mg PO DAILY 03/22/23 03/27/23 History Clopidogrel [Plavix] 75 mg PO DAILY 03/22/23 03/27/23 History Cyclobenzaprine [Flexeril] 10 mg PO BID PRN 03/22/23 03/27/23 History LORazepam [Ativan] 1 mg PO TID 03/22/23 03/27/23 History Olopatadine HCl [Patanol 0.1%] 1 drop BOTH EYES TID 03/22/23 03/27/23 History Pantoprazole Sodium [Protonix] 20 mg PO BID 03/22/23 03/27/23 History oxyCODONE-APAP 10-325MG [Percocet 1 tab PO QID 03/22/23 03/27/23 History 10-325 mg] Allergies Allergy/AdvReac Type Severity Reaction Status Date / Time alprazolam [From Xanax] Allergy Unknown Verified 03/27/23 16:23 codeine Allergy Rash/Hives Verified 03/27/23 16:23 zolpidem [From Ambien] AdvReac "salty" Verified 03/27/23 16:23 taste in mouth, numb mouth
[2023-04-04] MEDS ORDERED: Potassium Replacement Protocol 1 EACH MISC MISCELLANE PRN (18:38)
[2023-04-04] MEDS: POTASSIUM CHLORIDE 10 MEQ in WATER FOR INJECTION 1 100ML.BAG IVPB SCH ×2 (19:16→20:49)
[2023-04-04] MEDS ORDERED: POTASSIUM CHLORIDE ER 20 MEQ TAB.ER PO SCH (21:00)
[2023-04-04] MEDS: ATORVASTATIN 80 MG TAB PO SCH (21:03)
[2023-04-04] MEDS: PHENYLEPHRINE 40 MG in SODIUM CHLORIDE 0.9% 250 ML IV SCH ×3 (21:03)
[2023-04-04] MEDS: TEMAZEPAM 15 MG CAP PO SCH (21:03)
[2023-04-04] MEDS: DONEPEZIL 10 MG TAB PO SCH (21:41)
[2023-04-05] MEDS: LORazepam 1 MG TAB PO PRN ×3 (01:44→16:07)
[2023-04-05] MEDS: oxyCODONE-APAP 10-325MG 1 EACH TAB PO PRN ×4 (04:16→22:38)
[2023-04-05 04:40] LABS: HCT 33.4 % (39.0-53.0); HGB 11.1 gm/dL (13.0-17.5); MCH 31.1 pg (25.0-35.0); MCHC 33.3 g/dL (31.0-37.0); MCV 93.5 fL (80.0-100.0); Mean Platelet Volume 8.9; Platelet Count 264 k/uL (150-450); RBC 3.57 m/uL (4.30-5.90); WBC 12.8 k/uL (3.8-10.6)
[2023-04-05 04:50] LABS: African American GFR (CKD) 88 (>60 ml/min/1.73 sqM); Anion Gap 7 mmol/L; Blood Urea Nitrogen 20 mg/dL (9-20); Calcium 8.9 mg/dL (8.4-10.2); Carbon Dioxide 22 mmol/L (22-30); Chloride 109 mmol/L (98-107); Glucose 93 mg/dL (74-99); Non-African American GFR(CKD) 76 (>60 ml/min/1.73 sqM); Potassium 3.9 mmol/L (3.5-5.1); Sodium 138 mmol/L (137-145)
[2023-04-05] MEDS ORDERED: POTASSIUM CHLORIDE ER 20 MEQ TAB.ER PO SCH (06:00)
[2023-04-05] MEDS: ISOSORBIDE MONONITRATE ER 30 MG TAB.ER.24H PO SCH (07:50)
[2023-04-05] MEDS: PANTOPRAZOLE 40 MG TABLET PO SCH ×2 (08:01→20:06)
[2023-04-05] MEDS: HEPARIN SODIUM,PORCINE 5,000 UNIT/ML 1 ML VIAL SQ SCH ×2 (08:01→20:06)
[2023-04-05] MEDS: LORATADINE 10 MG TAB PO SCH (08:01)
[2023-04-05] MEDS: ASPIRIN 81 MG PO SCH (08:01)
[2023-04-05] MEDS: TICAGRELOR 90 MG TAB PO SCH ×2 (08:01→20:06)
[2023-04-05] MEDS: CITALOPRAM HYDROBROMIDE 20 MG TAB PO SCH (08:01)
[2023-04-05] MEDS: polyethylene glycoL 3350 17 GM POWD.PACK PO SCH (08:02)
[2023-04-05] MEDS: KETOTIFEN 0.025% OPHTH DROPS 5 ML BTL BOTH EYES SCH ×2 (08:02→20:06)
[2023-04-05] MEDS: NICOTINE 14MG/24HR PATCH TRANSDERM SCH (08:02)
--- NOTE | 2023-04-05 11:18 | P.PN ---
Subjective Progress Note Date: 04/05/23 73-year-old male who was seen in the emergency department, on March 27, for possible CVA. He apparently came in with left arm and left leg numbness, and facial droop. His initial NIH score was 12. The patient had a computed tomography scan of the brain, and there was no bleeding, and hence, he received TPA. Currently, he is resting comfortably in the intensive care unit. He seen in room 254. The patient is doing much better, and is almost completely back to normal. He's currently on room air. He is getting saline at 100 mL an hour. Unfortunately, the patient does continue to smoke cigarettes. He has a history of coronary artery disease, with stenting 7, hypertension, hyperlipidemia, and gastroesophageal reflux disease. The patient apparently is also had a myocardial infarction in the past. The patient has been smoking for many years. White count 11.9, with a normal hemoglobin, hematocrit, and platelet count. Sodium 138, potassium 3.7, chlorides 112, CO2 21, BUN 15, and creatinine 1.0. Brain CT showed atrophy with chronic appearing periventricular white matter ischemic changes, which is stable. No acute intracranial process noted. Chest x-ray was normal. Angiography CT, showed mild narrowing, without significant flow limiting stenosis. Progress note dated 03/29/2023. 72-year-old male who was seen in consultation yesterday, for left-sided stroke symptoms. The patient received TPA in the emergency department, and, has had significant improvement. He seen today in room 254. He's on room air. He is receiving saline at 10 mL an hour. The patient will be going down for a follow- up computed tomography scan of the head, without contrast. He has no new comp laints today. Labs today include a white count 10.9, hemoglobin 13.7, hematocrit 43.3, and a normal platelet count. Sodium 137, potassium 3.9, chlorides 111, CO2 18, BUN 12, creatinine 1.01. 03/30 2023, I'm seeing the patient for a follow-up. The patient is post TPA. Neurologically intact. Moving all 4 extremities. Able to swallow. Left-sided weakness has subsided and the patient is going to have an MRI of the brain today. Echocardiogram that was done on 03/28/2023 showed mild impairment of LV function with an ejection fraction of 40-45% and inferior wall hypokinesis. The patient is known to have coronary artery disease. He has undergone multiple coronary stenting. At the same time there is moderately increased LV wall thickening. No evidence of any pericardial effusion. In terms of medication, the patient is currently on aspirin 325 mg by mouth daily. He is taking Dent f or pain control. He has chronic back pain and he also takes nonsteroidal anti- inflammatory medications. He is on Lipitor high-dose 80 mg by mouth daily. MRI of the brain is to be done today. The BUN 12 with a creatinine of 1. The white cell count is at 10.9 with a hemoglobin 15.7. His LDL cholesterol was was 75. CT angiography that was done on 03/27/2023 showed mild narrowing without any si gnificant flow limitation of the bilateral internal carotid arteries. No other acute vascular abnormalities noted. There is condition is stable for now. Blood pressure is 138/78. On today's examination, the patient continues to have some residual left-sided weakness in the left arm slightly weaker compared to the right. No facial asymmetry. Adequate swallow. On 03/31/2023, patient is being seen for a follow-up. Neurologically stable. Some improvement in the left lower and upper extremity weakness. MRI of the brain was done and the patient was found to have an acute/subacute CVA involving the right thalamus and left parietal/occipital region. Nonspecific white matter changes were also seen. Meanwhile, the carotid Dopplers showed 50-70% carotid artery stenosis bilaterally. Based on those findings, the patient is going to need a ISRAEL to rule out a possibility of embolic phenomena. At the same time, Mr. surgery was consulted and the patient is being contemplated for possibility of a carotid endarterectomy on the right. The labs are all stable. White cell cause of 9.7, hemoglobin was 12.7, normal renal function. Electrolytes all within normal limits. He remains on aspirin 81 mg by mouth daily and heparin subcu. He is also on Brilinta 90 mg by mouth twice a day. 04/01/2023, the patient is neurologically stable and the patient had a failed ISRAEL yesterday and the procedure is to be completed today. No new complaints. No new labs. The patient remains on aspirin and Brilinta for now. The patient was transferred out of the intensive care unit yesterday. On 04/02/2023, the patient has no neurological symptoms and the plan is to proceed with a right carotid endarterectomy tomorrow. For now, the patient is currently on a combination of aspirin and Brilinta. Vascular surgeries on the case. The patient has no headache, no altered mentation, motor function in the left upper extremity is stable and back to its baseline. No new labs are available from today. ISRAEL was done and the patient was found to have a normal LV, normal systolic function, no cardiac sounds, rales were normal. No evidence of any pericardial effusion. On 04/03/2023, the patient is being seen in the intensive care unit. The patient underwent a right carotid endarterectomy with patch angioplasty. Estimated blood loss was 75 mL and the patient is currently being monitored in the ICU. The patient has some limited confusion. No focal neurological deficits. Motor function is adequate in all 4 extremities. No headaches. He is conversing and communicating. He has a SAMANTHA drain in his right neck and up with his minimal at this point in time, bloody. The patient also has an ar terial line and the patient is on Armando-Synephrine 0.7 mg/kg/m to maintain a systolic blood pressure above 120. Cardiac rhythm is sinus. Blood work from earlier this morning showed a hemoglobin of 11.6, white cell count of 11.2, BUN is 16 with a creatinine of 1.1 and his sodium level is at 138. No respiratory distress. Currently is on 4 L of oxygen nasal cannula. 04/04/2023, the patient is postop day #1. The patient has minimal amount of output from the SAMANTHA drain. Surgical wound over the right neck area dry clean and intact. The patient remains on Armando-Synephrine 0.2 mcg/kg/h. The patient and Brilinta and the patient is also on aspirin. Hemodynamically stable. No focal neurological deficit. He has adequate motor function in all 4 extremities. No headaches. No altered mentation. No confusion. He is alert and oriented 3. The white second of 15.1, hemoglobin is at 10 and a BUN is 19 with a creatinine of 1.07 and sodium levels of 13 6. His tolerating diet. 04/05/2023, the patient is postop day #2. SAMANTHA drain has been removed. The patient is doing well. No specific complaints. The patient is off Armando- Synephrine drip. The patient is hemodynamically stable. No focal neurological deficits. The neck is clean. The wound is clear. No hematoma. The hemoglobin is 11.1, white cycles of 12.8, BUN is at 20 with a creatinine of 0.9. Sodium level is at 138. BP is under adequate control. No hypotension Objective - Vital Signs Vital signs: Vital Signs Temp 99 F 04/05/23 08:00 Pulse 70 04/05/23 08:00 Resp 32 H 04/05/23 08:00 BP 132/65 04/05/23 08:00 Pulse Ox 94 L 04/05/23 08:00 FiO2 21 03/30/23 08:57 Intake & Output 04/04/23 04/05/23 04/05/23 18:59 06:59 18:59 Intake Total 675.798 309.703 54.34 Output Total 345 1025 Balance 330.798 -715.297 54.34 Weight 96.2 kg Intake: IV 220 240 40 Lactated Ringers 1,000 ml 220 240 40 @ 20 mls/hr IV .Q24H [facility] Rx#:[id number] Intake, IV Titration 105.798 69.703 14.34 Amount Phenylephrine 40 mg In 105.798 69.703 14.34 Sodium Chloride 0.9% 250 ml @ 0.5 MCG/KG/MIN 18. 703 mls/hr IV .[id number] [facility] Rx#:[id number] Oral 350 Output: Urine 345 1025 Other: Voiding Method Indwelling Catheter # Voids 1 1 # Bowel Movements 1 ABP, PAP, CO, CI - Last Documented Arterial Blood Pressure 131/55 - Exam No acute distress, oriented 3. Currently on room air oxygen, adequate oxygenation. No signs of any respiratory distress HEENT examination is grossly unremarkable. Mucous membranes are moist. No oral lesions. Neck supple. Full range of motion. No adenopathy thyromegaly or neck vein dis tention. Surgical wound over the neck area on the right is clean and the patient has a SAMANTHA drain has been removed, no hematoma Cardiovascular examination reveals regular rhythm rate. S1-S2 normal. No S3 or S4. No discernible murmur noted. Lungs reveal clear breath sounds. Breath sounds are equal bilaterally. No adventitious lung sounds including wheezes rhonchi or crackles. Abdomen soft bowel sounds are heard. No masses or tenderness. Extremities are intact. No cyanosis clubbing or edema. Skin is without rash or lesion. Neurologic examination is brief but nonfocal., There is improvement in motor function in the left upper extremity. I think the motor functions improved com pared to yesterday. No new onset focal neurological deficits. No facial asymmetry. Pupils are equal and reactive to light. Slightly confused post anesthesia. - Labs CBC & Chem 7: 04/05/23 04:15 04/05/23 04:15 Labs: Abnormal Lab Results - Last 24 Hours (Table) 04/05/23 04/05/23 Range/Units 04:15 04:15 WBC 12.8 H (3.8-10.6) k/uL RBC 3.57 L (4.30-5.90) m/uL Hgb 11.1 L (13.0-17.5) gm/dL Hct 33.4 L (39.0-53.0) % Chloride 109 H (98-107) mmol/L Assessment and Plan Plan: Acute right-sided CVA, with left-sided weakness, and left facial droop, S/P TPA, with near-complete resolution of the patient's symptoms. The patient continues to have some minimal residual left-sided weakness on today's examination. Symptoms are stable on today's evaluation of the patient has no new onset neurological deficit. Follow-up CAT scan of the brain was done on 03/29/2023 showed stable chronic white matter ischemic changes without any acute bleeds. No evidence of any thrombotic stroke either. MRIs showing a right thalamic and left occipital acute/subacute CVA and the carotid Doppler that shown 50-70% stenotic changes bilaterally. The patient completed ISRAEL on 04/01/2023 and the findings of essentially normal. Right carotid endarterectomy with patch angioplasty, postop day #2 SAMANTHA drain is removed CAD, with multiple previous stents. The patient is a preserved LV function, moderate LVH Hypertension. Hyperlipidemia. Previous myocardial infarction. Ongoing tobacco use with nicotine addiction. Gastroesophageal reflux disease. Plan Patient off the Armando-Synephrine drip SAMANTHA drain has been removed Monitor neurologic functions and repeated neurologic examination in the ICU Hemodynamically stable Continue aspirin and Brilinta We'll continue to follow Should be able to transfer out of the intensive care unit
--- NOTE | 2023-04-05 13:20 | P.PN ---
Progress Note - Text Progress Note Date: 04/05/23 Chief Complaint: Left-sided weakness This is a 72-year-old patient who follows with Dr. Felix. History of cardiac arrest. Tonic-clonic seizure. medical conditions include coronary artery disease with stent, GERD, hyperlipidemia, essential hypertension primary osteoar thritis. History of head injury. Hepatitis C. Arthritis. Patient yesterday sent down to eat pizza. Suddenly felt his vision was narrowed. Started feeling off. Left arm became weak. Speech became slurred. He was brought into the ER. In the ER there was left-sided weakness. Facial droop. Given TPA. He was admitted to the ICU and it was improvement in his neurological status. Today feels better. Speech is improved. Significant improvement of the left side. Able to eat his lunch. Seen by neurology. Patient does get charley horses on walking. Sometimes numbness in his feet. Has decreased vision in the left side of the visual field. March 29: ICU. Sitting at the edge of the bed. Eating his lunch. Feeling better. Weakness left side nearly resolved. Speech back to normal. Blood pressure good. Repeat CT brain today without contrast. Unremarkable. March 30: ICU. Sitting up edge of bed eating lunch. As per the patient and the doctor's ex- and daughter both felt to speech is not back to normal. Very slight weakness in the left arm. MRI of the brain did confirm stroke in 2 different areas. ISRAEL ordered. Neto started by neurology. March 31: ICU. Attempted ISRAEL today.) Restless. Postponed for tomorrow with anesthesia. Neurologically patient nearly back his baseline. Restless planning for right carotid surgery this admission. Patient is medically stable to proceed for the same. Discussed with patient. April 01: Patient is seen this morning and late in the day patient underwent a ISRAEL. No shunt or thrombus reported. Patient currently has scheduled right carotid surgery this Thursday. I discussed with Dr. Bejarano from neurology.-He discussed with the patient and vascular, and the patient is keen to proceed for surgery. April 02: Laying in bed. Nothing by mouth. Pending surgery. No new issues. April 03: Patient underwent right carotid endarterectomy and patch by Dr. Romero. Postprocedure laying in bed in ICU. Dressing over the same. Awake comfortable. Romero catheter. April 04: ICU. SAMANTHA drain and Romero catheter removed. Diet advanced. No trouble swallowing. Patient has been on Armando-Synephrine drip since yesterday. Breathing stable. Discussed. Increase activity. April 05: ICU. Patient is off Armando-Synephrine. Decreased appetite. Up to the bathroom. No new issues. Active Medications Acetaminophen (Acetaminophen Tab 325 Mg Tab) 650 mg PO Q4HR PRN PRN Reason: Pain Al Hydroxide/Mg Hydroxide (Mag Hydrox/Al Hydrox/Simeth 30 Ml Cup) 30 ml PO Q6HR PRN PRN Reason: Indigestion Aspirin (Aspirin 81 Mg) 81 mg PO DAILY [facility] Last Admin: 04/05/23 08:01 Dose: 81 mg Atorvastatin Calcium (Atorvastatin 80 Mg Tab) 80 mg PO HS [facility] Last Admin: 04/04/23 21:03 Dose: 80 mg Benzocaine/Menthol (Benzocaine/Menthol Lozeng 1 Each Lozenge) 1 each MUCOUS MEM Q2HR PRN PRN Reason: Sore Throat Last Admin: 04/04/23 09:56 Dose: 1 each Citalopram Hydrobromide (Citalopram Hydrobromide 20 Mg Tab) 20 mg PO DAILY [facility] Last Admin: 04/05/23 08:01 Dose: 20 mg Cyclobenzaprine HCl (Cyclobenzaprine 10 Mg Tab) 10 mg PO BID PRN PRN Reason: Muscle Spasm Last Admin: 04/03/23 15:49 Dose: 10 mg Donepezil HCl (Donepezil 10 Mg Tab) 10 mg PO HS [facility] Last Admin: 04/04/23 21:41 Dose: 10 mg Heparin Sodium (Porcine) (Heparin Sodium,Porcine 5,000 Unit/Ml 1 Ml Vial) 5,000 unit SQ Q12HR [facility] Last Admin: 04/05/23 08:01 Dose: 5,000 unit Phenylephrine HCl 40 mg/ (Sodium Chloride) 254 mls @ 18.703 mls/hr IV .[id number] [facility]; Protocol Last Titration: 04/05/23 07:50 Dose: 0 mcg/kg/min, 0 mls/hr Isosorbide Mononitrate (Isosorbide Mononitrate Er 30 Mg Tab.Er.24h) 30 mg PO DAILY [facility] Last Admin: 04/05/23 07:50 Dose: Not Given Ketotifen Fumarate (Ketotifen 0.025% Ophth Drops 5 Ml Btl) 1 drops BOTH EYES BID [facility] Last Admin: 04/05/23 08:02 Dose: 1 drops Loratadine (Loratadine 10 Mg Tab) 10 mg PO DAILY [facility] Last Admin: 04/05/23 08:01 Dose: 10 mg Lorazepam (Lorazepam 1 Mg Tab) 1 mg PO Q8HR PRN PRN Reason: Anxiety Last Admin: 04/05/23 08:05 Dose: 1 mg Miscellaneous Information (Potassium Replacement Protocol 1 Each Misc) 1 each MISCELLANE DAILY PRN; Protocol PRN Reason: Per Protocol Miscellaneous Information (Potassium Replacement Protocol 1 Each Misc) 1 each MISCELLANE DAILY PRN; Protocol PRN Reason: Per Protocol Naloxone HCl (Naloxone 0.4 Mg/Ml 1 Ml Vial) 0.2 mg IV Q2M PRN PRN Reason: Opioid Reversal Nicotine (Nicotine 14mg/24hr Patch) 1 patch TRANSDERM DAILY [facility] Last Admin: 04/05/23 08:02 Dose: Not Given Oxycodone/Acetaminophen (Oxycodone-Apap 10-325mg 1 Each Tab) 1 each PO Q6HR PRN PRN Reason: Pain Last Admin: 04/05/23 09:59 Dose: 1 each Pantoprazole Sodium (Pantoprazole 40 Mg Tablet) 40 mg PO BID [facility] Last Admin: 04/05/23 08:01 Dose: 40 mg Polyethylene Glycol (Polyethylene Glycol 3350 17 Gm Powd.Pack) 17 gm PO DAILY [facility] Last Admin: 04/05/23 08:02 Dose: Not Given Temazepam (Temazepam 15 Mg Cap) 30 mg PO HS [facility] Last Admin: 04/04/23 21:03 Dose: 30 mg Ticagrelor (Ticagrelor 90 Mg Tab) 90 mg PO BID [facility] Last Admin: 04/05/23 08:01 Dose: 90 mg Trimethobenzamide HCl (Trimethobenzamide 100 Mg/Ml 2 Ml Vial) 200 mg IM Q4HR PRN PRN Reason: Nausea And Vomiting Past medical history to include: Concussion, possible tonic-clonic seizure, coronary artery disease with stent, GERD, hyperlipidemia, essential hypertension, primary osteoarthritis, nicotine dependence.. Social history: Lives alone. Smokes a pack a day-several years. Denies alcohol. Physical examination: VITAL SIGNS: 98.9, 64, 15, 135/68, 93% room air GENERAL: Laying in bed, comfortable EYES: Pupils equal. Conjunctiva normal. HEENT: External appearance of nose and ears normal, oral cavity grossly normal. Dressing over the right carotid surgical site NECK: JVD not raised; masses not palpable. HEART: First and second heart sounds are normal; no edema. Decreased dorsalis pedis. LUNGS: Respiratory rate normal; decreased breath sounds. ABDOMEN: Soft, nontender, liver spleen not palpable, no masses palpable. PSYCH: Alert and oriented x3; mood and affect anxious. NEUROLOGICAL: Mouth slightly pulled over to the left, left arm power improved. Abnormal sensation left side of the face. Speech any back to normal MUSCULAR skeletal: Evidence of OA. INVESTIGATIONS, reviewed in the clinical context: April 05: White count 12.8 hemoglobin 11.1 platelets 264 potassium 3.9 creatinine 0.99 April 04: White count 15.1 hemoglobin 10.9 platelets 260 potassium 4 BUN 19 creatinine 1.07 April 03: White count 11.2 hemoglobin 11.6 potassium 3.6 creatinine 1.10 ISRAEL: Bubble study was negative for any shunting. No embolic source was detected. March 31: White count 9.7 hemoglobin 12.7 potassium 3.6 creatinine 0.9 to Carotid Doppler: 50-69% reduction suggested bilaterally. MRI brain without contrast: Acute/subacute CVA involving the right thalamus and the left parietal occipital region. Some nonspecific) changes. March 29: White count 10.9 hemoglobin 13.7 potassium 3.9 creatinine 1.01 LDL 75 March 28: White count 11.9 hemoglobin 14.1 platelets 238 sodium 138 potassium 3.7 BUN 15 creatinine 1.0 LDL 75 EKG tracing personally reviewed by me-normal sinus rhythm. PVC. Chest x-ray film personally reviewed by me-portable. Underpenetrated. Some cardiomegaly. CT brain: Without contrast: Atrophy with chronic-appearing white matter ischemic changes. CT angiogram to neck: Mild narrowing without significant evidence for close limiting stenosis bilateral internal carotid artery origins. Assessment and plan: -Acute stroke possibly embolic or ischemic: Involving the right thalamus and the left parietal/occipital region. Status post TPA. Neurology following. Aspirin. Brillinta ISRAEL : Negative for shunting or embolic source. -Right carotid stenosis. Right endarterectomy patch done by Dr. Agustina Romero April 03. -Coronary artery disease with stent Aspirin. -GERD PPI -Hyperlipidemia Increase Lipitor to 80 mg daily at bedtime. -Essential hypertension Follow blood pressure closely -Primary osteoarthritis Percocet when necessary -Chronic nicotine dependence patient cigarette smoker Nicotine patch Doing better. Increase activity. Encourage oral intake. Hopefully home tomorrow. Past Medical History Past Medical History: Coronary Artery Disease (CAD), CVA/TIA, GERD/Reflux, Hyperlipidemia, Hypertension, Liver Disease, Myocardial Infarction ([place]), Vascular Disorder Additional Past Medical History / Comment(s): Patient states he was admitted to the hospital January after a fall with head injury/new onset seizures and was hospitalized at [facility] in [place]. He was on life support and was extubated and had one more seizure. 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 Patient states he has Hepatitis C. Last Myocardial Infarction Date:: 2011 History of Any Multi-Drug Resistant Organisms: None Reported Past Surgical History: Heart Catheterization With Stent, Orthopedic Surgery Additional Past Surgical History / Comment(s): PCI with a total of 7 stents per pt, L caratid endartectomy, L shoulder surgery for injury, R knee/R hip/R elbow/R wrist ligament/tendon type surgeries injuries-has pins in hand, colonoscopy. Past Anesthesia/Blood Transfusion Reactions: No Reported Reaction Date of Last Stent Placement:: 2011 Past Psychological History: Anxiety Smoking Status: Current every day smoker Past Alcohol Use History: None Reported Past Drug Use History: Marijuana - Past Family History Father Family Medical History: CVA/TIA Additional Family Medical History / Comment(s): Father is from CVA. Pt states father from "stupidity." Mother Family Medical History: Diabetes Mellitus Additional Family Medical History / Comment(s): Mother from diabetes at the age of 52 yrs. Brother(s) Family Medical History: Diabetes Mellitus Additional Family Medical History / Comment(s): Brother at the age of 32 yrs from type 1 diabetes. Medications and Allergies Home Medications Medication Instructions Recorded Confirmed Type Isosorbide Mononitrate ER [Imdur] 30 mg PO DAILY 09/07/17 03/27/23 History lisinopriL [Zestril] 10 mg PO DAILY 09/07/17 03/27/23 History Aspirin 81 mg PO DAILY #1 chewable 02/27/19 03/27/23 Rx Donepezil [Aricept] 10 mg PO HS 04/11/19 03/27/23 History Temazepam [Restoril] 30 mg PO HS 04/11/19 03/27/23 History amLODIPine [Norvasc] 5 mg PO DAILY 04/11/19 03/27/23 History Atorvastatin [Lipitor] 40 mg PO DAILY 03/22/23 03/27/23 History Citalopram Hydrobromide [CeleXA] 20 mg PO DAILY 03/22/23 03/27/23 History Clopidogrel [Plavix] 75 mg PO DAILY 03/22/23 03/27/23 History Cyclobenzaprine [Flexeril] 10 mg PO BID PRN 03/22/23 03/27/23 History LORazepam [Ativan] 1 mg PO TID 03/22/23 03/27/23 History Olopatadine HCl [Patanol 0.1%] 1 drop BOTH EYES TID 03/22/23 03/27/23 History Pantoprazole Sodium [Protonix] 20 mg PO BID 03/22/23 03/27/23 History oxyCODONE-APAP 10-325MG [Percocet 1 tab PO QID 03/22/23 03/27/23 History 10-325 mg] Allergies Allergy/AdvReac Type Severity Reaction Status Date / Time alprazolam [From Xanax] Allergy Unknown Verified 03/27/23 16:23 codeine Allergy Rash/Hives Verified 03/27/23 16:23 zolpidem [From Ambien] AdvReac "salty" Verified 03/27/23 16:23 taste in mouth, numb mouth
[2023-04-05] MEDS: ATORVASTATIN 80 MG TAB PO SCH (20:06)
[2023-04-05] MEDS: DONEPEZIL 10 MG TAB PO SCH (20:06)
[2023-04-05] MEDS: TEMAZEPAM 15 MG CAP PO SCH (21:09)
[2023-04-06] MEDS: LORazepam 1 MG TAB PO PRN ×2 (00:05→08:42)
[2023-04-06] MEDS: oxyCODONE-APAP 10-325MG 1 EACH TAB PO PRN (04:54)
[2023-04-06] MEDS: PHENYLEPHRINE 40 MG in SODIUM CHLORIDE 0.9% 250 ML IV SCH (07:56)
[2023-04-06] MEDS: NICOTINE 14MG/24HR PATCH TRANSDERM SCH (07:59)
[2023-04-06] MEDS: polyethylene glycoL 3350 17 GM POWD.PACK PO SCH (08:00)
[2023-04-06 08:11] LABS: Glucose,Whole Blood 106 mg/dL (70-110)
[2023-04-06] MEDS: ASPIRIN 81 MG PO SCH (08:38)
[2023-04-06] MEDS: HEPARIN SODIUM,PORCINE 5,000 UNIT/ML 1 ML VIAL SQ SCH (08:38)
[2023-04-06] MEDS: LORATADINE 10 MG TAB PO SCH (08:38)
[2023-04-06] MEDS: PANTOPRAZOLE 40 MG TABLET PO SCH (08:38)
[2023-04-06] MEDS: TICAGRELOR 90 MG TAB PO SCH (08:38)
[2023-04-06] MEDS: CITALOPRAM HYDROBROMIDE 20 MG TAB PO SCH (08:38)
[2023-04-06] MEDS: KETOTIFEN 0.025% OPHTH DROPS 5 ML BTL BOTH EYES SCH (08:39)
[2023-04-06] MEDS: ISOSORBIDE MONONITRATE ER 30 MG TAB.ER.24H PO SCH (08:39)
[2023-04-06 10:01] VITALS: BP 131/76; PULSE 67; RESP 18; TEMP 99
[2023-04-06] MEDS: LACTATED RINGERS 1,000 ML IV SCH (10:01)
--- NOTE | 2023-04-06 11:01 | P.PN ---
Subjective Progress Note Date: 04/06/23 Principal diagnosis: Carotid stenosis She was seen and examined today in the ICU. He has been downgraded and awaiting a bed. He is without any focal deficits. States he does have some tenderness along the right incision line. No difficulty with swallowing. Vital signs have been stable blood pressure has stabilized. He is off IV medications. He has been up and ambulating. He is voiding without difficulty. Objective - Vital Signs Vital signs: Vital Signs Temp 99.0 F 04/06/23 08:00 Pulse 67 04/06/23 08:00 Resp 18 04/06/23 08:00 BP 131/76 04/06/23 08:00 Pulse Ox 97 04/06/23 08:00 FiO2 21 03/30/23 08:57 Intake & Output 04/05/23 04/06/23 04/06/23 18:59 06:59 18:59 Intake Total 134.34 350 Output Total 600 650 Balance -465.66 -300 Intake: IV 120 Lactated Ringers 1,000 ml 120 @ 20 mls/hr IV .Q24H [facility] Rx#:[id number] Intake, IV Titration 14.34 Amount Phenylephrine 40 mg In 14.34 Sodium Chloride 0.9% 250 ml @ 0.5 MCG/KG/MIN 18. 703 mls/hr IV .[id number] [facility] Rx#:[id number] Oral 350 Output: Urine 600 650 Other: # Voids 1 1 # Bowel Movements 1 ABP, PAP, CO, CI - Last Documented Arterial Blood Pressure 114/51 - Exam General appearance: The patient is alert, oriented, appears in no acute distress. HET: Head is normocephalic and atraumatic. Pupils are equal and reactive. Neck: Supple. Right incision well approximated with some ecchymosis, no hematoma noted. Some tenderness to palpation. Heart: Regular. Lungs: Equal expansion, normal respiratory effort. Abdomen: Soft, nontender, nondistended. Extremities: Normal skin color and turgor. Neurological: No focal deficits. Strength and sensation are grossly intact. - Labs CBC & Chem 7: 04/05/23 04:15 04/05/23 04:15 Assessment and Plan Assessment: 1. Acute ischemic stroke 2. Symptomatic right ICA stenosis s/p right carotid endarterectomy 3. History of multiple TIAs status post left carotid endarterectomy approximately 7 years ago 4. Coronary artery disease status post multiple stents 5. Hypertension 6. Hyperlipidemia 7. Tobacco abuse Plan: 1. Continue aspirin and Brilinta 2. Continue to encourage activity, however no strenuous activity. This was discussed with patient 3. Discussed and recommend smoking cessation 4. Patient is clear from vascular surgery for discharge. Follow-up with Dr. Romero in 2 weeks. The impression and plan of care has been dictated as directed. I performed a history and examination of this patient, discussed the same with the dictator. I agree with the dictator's note ,documented as a scribe. Any additional findings or plans will be noted.
--- NOTE | 2023-04-06 11:30 | P.PN ---
Subjective Progress Note Date: 04/06/23 Principal diagnosis: Acute CVA 73-year-old male who was seen in the emergency department, on March 27, for possible CVA. He apparently came in with left arm and left leg numbness, and facial droop. His initial NIH score was 12. The patient had a computed tomography scan of the brain, and there was no bleeding, and hence, he received TPA. Currently, he is resting comfortably in the intensive care unit. He seen in room 254. The patient is doing much better, and is almost completely back to normal. He's currently on room air. He is getting saline at 100 mL an hour. Unfortunately, the patient does continue to smoke cigarettes. He has a history of coronary artery disease, with stenting 7, hypertension, hyperlipidemia, and gastroesophageal reflux disease. The patient apparently is also had a myocardial infarction in the past. The patient has been smoking for many years. White count 11.9, with a normal hemoglobin, hematocrit, and platelet count. Sodium 138, potassium 3.7, chlorides 112, CO2 21, BUN 15, and creatinine 1.0. Brain CT showed atrophy with chronic appearing periventricular white matter ischemic changes, which is stable. No acute intracranial process noted. Chest x-ray was normal. Angiography CT, showed mild narrowing, without significant flow limiting stenosis. 04/04/2023, the patient is postop day #1. The patient has minimal amount of output from the SAMANTHA drain. Surgical wound over the right neck area dry clean and intact. The patient remains on Armando-Synephrine 0.2 mcg/kg/h. The patient and Brilinta and the patient is also on aspirin. Hemodynamically stable. No focal neurological deficit. He has adequate motor function in all 4 extremities. No headaches. No altered mentation. No confusion. He is alert and oriented 3. The white second of 15.1, hemoglobin is at 10 and a BUN is 19 with a creatinine of 1.07 and sodium levels of 13 6. His tolerating diet. 04/05/2023, the patient is postop day #2. SAMANTHA drain has been removed. The patient is doing well. No specific complaints. The patient is off Armando-Synephri ne drip. The patient is hemodynamically stable. No focal neurological deficits. The neck is clean. The wound is clear. No hematoma. The hemoglobin is 11.1, white cycles of 12.8, BUN is at 20 with a creatinine of 0.9. Sodium level is at 138. BP is under adequate control. No hypotension Reevaluated today on 04/06, patient is now postoperative day #3, patient is doing well, relatively asymptomatic, he is on room air, does not seem to be in any distress, patient is actually an overflow he is to go to 3 S. once a bed becomes available. Patient initially presented with acute CVA requiring TPA, complete resolution of his symptoms of CVA after the TPA, and now he is status post right carotid endarterectomy postoperative day #3 relatively asymptomatic, and there is no evidence of any residual neurological deficits,No labs were done today except blood sugar 106 Objective - Vital Signs Vital signs: Vital Signs Temp 99.0 F 04/06/23 08:00 Pulse 67 04/06/23 08:00 Resp 18 04/06/23 08:00 BP 131/76 04/06/23 08:00 Pulse Ox 97 04/06/23 08:00 FiO2 21 03/30/23 08:57 Intake & Output 04/05/23 04/06/23 04/06/23 18:59 06:59 18:59 Intake Total 134.34 350 Output Total 600 650 Balance -465.66 -300 Intake: IV 120 Lactated Ringers 1,000 ml 120 @ 20 mls/hr IV .Q24H [facility] Rx#:[id number] Intake, IV Titration 14.34 Amount Phenylephrine 40 mg In 14.34 Sodium Chloride 0.9% 250 ml @ 0.5 MCG/KG/MIN 18. 703 mls/hr IV .[id number] [facility] Rx#:[id number] Oral 350 Output: Urine 600 650 Other: # Voids 1 1 # Bowel Movements 1 ABP, PAP, CO, CI - Last Documented Arterial Blood Pressure 114/51 - Exam Physical Exam: Revealed a 72-year-old white male in no distress on room air Head: Atraumatic, normocephalic. HEENT:[Neck is supple.] [No neck masses.] [No thyromegaly.] [No JVD.] Chest: [Clear throughout, no crackles, no rhonchi, no wheezes.] Cardiac Exam: [Normal S1 and S2, no S3 gallop, no murmur.] Abdomen: [Soft, nontender, no megaly, no rebound, no guarding, normal bowel sounds.] Extremities: [No clubbing, no edema, no cyanosis.] Neurological Exam: [No focal neurologic deficit.] Alert and oriented 3 Musculoskeletal: No deformities and no limitation in range of motion Psychiatric: Normal mood affect and normal mental status examination. - Labs CBC & Chem 7: 04/05/23 04:15 04/05/23 04:15 Assessment and Plan Assessment: Impression: Acute ischemic CVA/stroke status post TPA Symptomatic right internal carotid artery stenosis status post right carotid endarterectomy, postoperative day #3 History of left carotid endarterectomy/7 years ago. Coronary arteriosclerosis and multiple stents Benign essential hypertension Dyslipidemia Tobacco abuse Recommendation: Continue present supportive care measures Patient could be transferred out of the ICU to a cardiac/monitor floor We'll clear the patient for discharge if cleared by other consultants including neurology and vascular surgery. Must stop smoking, patient was counseled regarding smoking cessation Encourage activity Will follow as needed Time with Patient: Less than 30
--- NOTE | 2023-04-06 16:51 | P.DS ---
Providers Date of admission: 03/27/23 18:25 Expected date of discharge: 04/06/23 Attending physician: Stephane El Consults: 03/27/23 18:26 Consult Physician Routine Consulting Provider: Floyd Bejarano Consult Reason/Comments: icu Do you want consulting provider notified?: Yes Consult Physician Routine Consulting Provider: Faustina Saldaña Consult Reason/Comments: [email or web address] Do you want consulting provider notified?: Yes 03/30/23 11:06 Consult Physician Routine Consulting Provider: Esteban Patel Consult Reason/Comments: Embolic stroke/ISRAEL Do you want consulting provider notified?: Yes 03/30/23 14:06 Consult Physician Routine Consulting Provider: Mable Romero Consult Reason/Comments: carotid stenosis. acute cva Do you want consulting provider notified?: Yes 03/31/23 12:23 Consult Physician Routine Consulting Provider: Kushal Avery Consult Reason/Comments: ebolic cva Do you want consulting provider notified?: Already Contacted Primary care physician: [facility] Course: Chief Complaint: Left-sided weakness This is a 72-year-old patient who follows with Dr. Felix. History of cardiac arrest. Tonic-clonic seizure. medical conditions include coronary artery disease with stent, GERD, hyperlipidemia, essential hypertension primary osteoarthritis. History of head injury. Hepatitis C. Arthritis. Patient yesterday sent down to eat pizza. Suddenly felt his vision was narrowed. Started feeling off. Left arm became weak. Speech became slurred. He was brought into the ER. In the ER there was left-sided weakness. Facial droop. Given TPA. He was admitted to the ICU and it was improvement in his neurological status. Today feels better. Speech is improved. Significant improvement of the left side. Able to eat his lunch. Seen by neurology. Patient does get charley horses on walking. Sometimes numbness in his feet. Has decreased vision in the left side of the visual field. March 29: ICU. Sitting at the edge of the bed. Eating his lunch. Feeling better. Weakness left side nearly resolved. Speech back to normal. Blood pressure good. Repeat CT brain today without contrast. Unremarkable. March 30: ICU. Sitting up edge of bed eating lunch. As per the patient and the doctor's ex- and daughter both felt to speech is not back to normal. Very slight weakness in the left arm. MRI of the brain did confirm stroke in 2 different areas. ISRAEL ordered. Neot started by neurology. March 31: ICU. Attempted ISRAEL today.) Restless. Postponed for tomorrow with anesthesia. Neurologically patient nearly back his baseline. Restless planning for right carotid surgery this admission. Patient is medically stable to proceed for the same. Discussed with patient. April 01: Patient is seen this morning and late in the day patient underwent a ISRAEL. No shunt or thrombus reported. Patient currently has scheduled right carotid surgery this Thursday. I discussed with Dr. Bejarano from neurology.-He discussed with the patient and vascular, and the patient is keen to proceed for surgery. April 02: Laying in bed. Nothing by mouth. Pending surgery. No new iss ues. April 03: Patient underwent right carotid endarterectomy and patch by Dr. Romero. Postprocedure laying in bed in ICU. Dressing over the same. Awake comfortable. Romero catheter. April 04: ICU. SAMANTHA drain and Romero catheter removed. Diet advanced. No trouble swallowing. Patient has been on Armando-Synephrine drip since yesterday. Breathing stable. Discussed. Increase activity. April 05: ICU. Patient is off Armando-Synephrine. Decreased appetite. Up to the bathroom. No new issues. April 06: Doing well. Ambulated. No neuro deficits. Patient will follow- up with Dr. Armenta office for neurology. Also follow with Dr. Romero from vascular. Again discussed about smoking. Questions answered. Resume lisinopril. Discontinue amlodipine from home. Discussion and discharge planning more than 35 minutes Past medical history to include: Concussion, possible tonic-clonic seizure, coronary artery disease with stent, GERD, hyperlipidemia, essential hypertension, primary osteoarthritis, nicotine dependence.. Social history: Lives alone. Smokes a pack a day-several years. Denies alcohol. Physical examination: VITAL SIGNS: 99, 67, 18, 131/76, 97% room air GENERAL: , comfortable EYES: Pupils equal. Conjunctiva normal. HEENT: External appearance of nose and ears normal, oral cavity grossly normal. Dressing over the right carotid surgical site NECK: JVD not raised; masses not palpable. HEART: First and second heart sounds are normal; no edema. Decreased dorsalis pedis. LUNGS: Respiratory rate normal; decreased breath sounds. ABDOMEN: Soft, nontender, liver spleen not palpable, no masses palpable. PSYCH: Alert and oriented x3; mood and affect anxious. NEUROLOGICAL: Mouth slightly pulled over to the left, left arm power improved. Abnormal sensation left side of the face. Speech any back to normal MUSCULAR skeletal: Evidence of OA. INVESTIGATIONS, reviewed in the clinical context: April 05: White count 12.8 hemoglobin 11.1 platelets 264 potassium 3.9 creatinine 0.99 ISRAEL: Bubble study was negative for any shunting. No embolic source was detected. Carotid Doppler: 50-69% reduction suggested bilaterally. MRI brain without contrast: Acute/subacute CVA involving the right thalamus and the left parietal occipital region. Some nonspecific) changes. March 29: White count 10.9 hemoglobin 13.7 potassium 3.9 creatinine 1.01 LDL 75 March 28: White count 11.9 hemoglobin 14.1 platelets 238 sodium 138 potassium 3.7 BUN 15 creatinine 1.0 LDL 75 EKG tracing personally reviewed by me-normal sinus rhythm. PVC. Chest x-ray film personally reviewed by me-portable. Underpenetrated. Some cardiomegaly. CT brain: Without contrast: Atrophy with chronic-appearing white matter ischemic changes. CT angiogram to neck: Mild narrowing without significant evidence for close limiting stenosis bilateral internal carotid artery origins. Assessment and plan: -Acute stroke possibly embolic or ischemic: Involving the right thalamus and the left parietal/occipital region. Status post TPA. Neurology following. Aspirin. Brillinta ISRAEL : Negative for shunting or embolic source. Follow-up with Dr. Flaherty -Right carotid stenosis. Right endarterectomy patch done by Dr. Agustina Romero April 03. Follow-up outpatient -Coronary artery disease with stent Aspirin. -GERD PPI -Hyperlipidemia Lipitor 80 mg daily at bedtime. -Essential hypertension -Primary osteoarthritis Percocet when necessary -Chronic nicotine dependence patient cigarette smoker Nicotine patch Disposition: Home Past Medical History Past Medical History: Coronary Artery Disease (CAD), CVA/TIA, GERD/Reflux, Hyperlipidemia, Hypertension, Liver Disease, Myocardial Infarction ([place]), Vascular Disorder Additional Past Medical History / Comment(s): Patient states he was admitted to the hospital January after a fall with head injury/new onset seizures and was hospitalized at [facility] in [place]. He was on life support and was extubated and had one more seizure. 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 Patient states he has Hepatitis C. Last Myocardial Infarction Date:: 2011 History of Any Multi-Drug Resistant Organisms: None Reported Past Surgical History: Heart Catheterization With Stent, Orthopedic Surgery Additional Past Surgical History / Comment(s): PCI with a total of 7 stents per pt, L caratid endartectomy, L shoulder surgery for injury, R knee/R hip/R elbow/R wrist ligament/tendon type surgeries injuries-has pins in hand, colonoscopy. Past Anesthesia/Blood Transfusion Reactions: No Reported Reaction Date of Last Stent Placement:: 2011 Past Psychological History: Anxiety Smoking Status: Current every day smoker Past Alcohol Use History: None Reported Past Drug Use History: Marijuana - Past Family History Father Family Medical History: CVA/TIA Additional Family Medical History / Comment(s): Father is from CVA. Pt states father from "stupidity." Mother Family Medical History: Diabetes Mellitus Additional Family Medical History / Comment(s): Mother from diabetes at the age of 52 yrs. Brother(s) Family Medical History: Diabetes Mellitus Additional Family Medical History / Comment(s): Brother at the age of 32 yrs from type 1 diabetes. Plan - Discharge Summary New Discharge Prescriptions: New Ticagrelor [Brilinta] 90 mg PO BID #60 tab Nicotine 14Mg/24Hr Patch [Habitrol] 1 patch TRANSDERM DAILY #14 patch Atorvastatin [Lipitor] 80 mg PO HS #30 tab polyethylene glycoL 3350 [Miralax] 17 gm PO DAILY packet Continue Isosorbide Mononitrate ER [Imdur] 30 mg PO DAILY Aspirin 81 mg PO DAILY #1 chewable Temazepam [Restoril] 30 mg PO HS Donepezil [Aricept] 10 mg PO HS Olopatadine HCl [Patanol 0.1%] 1 drop BOTH EYES TID Citalopram Hydrobromide [CeleXA] 20 mg PO DAILY Clopidogrel [Plavix] 75 mg PO DAILY Pantoprazole Sodium [Protonix] 20 mg PO BID Cyclobenzaprine [Flexeril] 10 mg PO BID PRN PRN Reason: Muscle Spasm oxyCODONE-APAP 10-325MG [Percocet 10-325 mg] 1 tab PO QID Changed LORazepam [Ativan] 1 mg PO TID PRN #0 PRN Reason: Anxiety Discontinued Atorvastatin [Lipitor] 40 mg PO DAILY No Action lisinopriL [Zestril] 10 mg PO DAILY amLODIPine [Norvasc] 5 mg PO DAILY Discharge Medication List Isosorbide Mononitrate ER [Imdur] 30 mg PO DAILY 09/07/17 [History] lisinopriL [Zestril] 10 mg PO DAILY 09/07/17 [History] Aspirin 81 mg PO DAILY #1 chewable 02/27/19 [Rx] Donepezil [Aricept] 10 mg PO HS 04/11/19 [History] Temazepam [Restoril] 30 mg PO HS 04/11/19 [History] amLODIPine [Norvasc] 5 mg PO DAILY 04/11/19 [History] Citalopram Hydrobromide [CeleXA] 20 mg PO DAILY 03/22/23 [History] Clopidogrel [Plavix] 75 mg PO DAILY 03/22/23 [History] Cyclobenzaprine [Flexeril] 10 mg PO BID PRN 03/22/23 [History] Olopatadine HCl [Patanol 0.1%] 1 drop BOTH EYES TID 03/22/23 [History] Pantoprazole Sodium [Protonix] 20 mg PO BID 03/22/23 [History] oxyCODONE-APAP 10-325MG [Percocet 10-325 mg] 1 tab PO QID 03/22/23 [History] Atorvastatin [Lipitor] 80 mg PO HS #30 tab 04/06/23 [Rx] LORazepam [Ativan] 1 mg PO TID PRN #0 04/06/23 [Rx] Nicotine 14Mg/24Hr Patch [Habitrol] 1 patch TRANSDERM DAILY #14 patch 04/06/23 [Rx] Ticagrelor [Brilinta] 90 mg PO BID #60 tab 04/06/23 [Rx] polyethylene glycoL 3350 [Miralax] 17 gm PO DAILY packet 04/06/23 [Rx] Follow up Appointment(s)/Referral(s): Aaron Felix MD [Primary Care Provider] - 1-2 days Mable Romero DO [STAFF PHYSICIAN] - 04/22/23 10:30 am Mikey Galeana MD [Medical Doctor] - 1 Week (Please call to make appointment.) Activity/Diet/Wound Care/Special Instructions: No strenuous activity or heavy lifting greater than 10 pounds. May shower but no tub bathing or soaking. Watch incision site for infection including redness, drainage, or temperature greater than 100.4. If you notice he symptoms please call office Discharge Disposition: HOME SELF-CARE
== END 2023-04-06 12:50 | disposition home or self-care (01) | DRG 38 ==
LOC: EC 16:17 → 2SICU 18:25 → 3SCARD 04-01 00:55 → 2SICU 04-03 14:51
PROVIDERS: ADMIT Hospitalist; ATTEND Hospitalist
PROC: 3E03317 Introduction of Other Thrombolytic into Peripheral Vein, Percutaneous Approach (ICD-10-PCS; 2023-03-27)
PROC: B24BZZ4 Ultrasonography of Heart with Aorta, Transesophageal (ICD-10-PCS; 2023-04-01)
PROC: 03UK0KZ Supplement Right Internal Carotid Artery with Nonautologous Tissue Substitute, Open Approach (ICD-10-PCS; principal; 2023-04-03 09:00)
PROC: 03CK0ZZ Extirpation of Matter from Right Internal Carotid Artery, Open Approach (ICD-10-PCS; principal; 2023-04-03 09:00)
DX: I63.89 Other cerebral infarction (principal); G81.94 Hemiplegia, unspecified affecting left nondominant side; Z86.74 Personal history of sudden cardiac arrest; I65.23 Occlusion and stenosis of bilateral carotid arteries; R29.712 NIHSS score 12; R47.1 Dysarthria and anarthria; H54.62 Unqualified visual loss, left eye, normal vision right eye; I25.5 Ischemic cardiomyopathy; I25.10 Atherosclerotic heart disease of native coronary artery without angina pectoris; E78.5 Hyperlipidemia, unspecified; I10 Essential (primary) hypertension; B19.20 Unspecified viral hepatitis C without hepatic coma; I08.1 Rheumatic disorders of both mitral and tricuspid valves; K76.9 Liver disease, unspecified; M62.838 Other muscle spasm; M19.91 Primary osteoarthritis, unspecified site; K21.9 Gastro-esophageal reflux disease without esophagitis; I25.2 Old myocardial infarction; F40.240 Claustrophobia; G89.29 Other chronic pain; M54.9 Dorsalgia, unspecified; F17.210 Nicotine dependence, cigarettes, uncomplicated; Z71.6 Tobacco abuse counseling; Z79.82 Long term (current) use of aspirin; Z79.02 Long term (current) use of antithrombotics/antiplatelets; Z79.891 Long term (current) use of opiate analgesic; Z79.1 Long term (current) use of non-steroidal anti-inflammatories (NSAID); Z79.899 Other long term (current) drug therapy; Z95.5 Presence of coronary angioplasty implant and graft; Z87.820 Personal history of traumatic brain injury; Z86.73 Personal history of transient ischemic attack (TIA), and cerebral infarction without residual deficits; Z88.5 Allergy status to narcotic agent; Z88.8 Allergy status to other drugs, medicaments and biological substances; Z82.3 Family history of stroke
CPT/HCPCS: 36415; 37195; 70450; 70496; 70498; 70551; 71045; 80048; 80053; 80061; 82550; 83036; 83735; 84132; 84484; 85025; 85027; 85610; 85730; 86850; 86900; 86901; 88304; 88305; 88311; 93005; 93270; 93306; 93312; 93320; 93325; 93880; 94760; 96361; 96374; 99291

== ENCOUNTER 2023-04-17 13:42 | Inpatient (IN) | payer MEDICARE, OTHER ==
[2023-04-17] MEDS ORDERED: levETIRAcetam IV 500 MG/5 ML VIAL IVP STA (14:04)
--- NOTE | 2023-04-17 14:15 | ED ---
General Adult HPI - General Chief complaint: Altered Mental Status Stated complaint: AMS Time Seen by Provider: 04/17/23 13:51 Source: family (Patient's friend), EMS, RN notes reviewed, old records reviewed Mode of arrival: EMS Limitations: altered mental status - History of Present Illness Initial comments: Patient is a pleasant 72-year-old male presenting to the emergency department with concern with change in mental status. Family spoke with patient around 1:30 and was acting well at that time. 1:30 AM. Patient made calls to his friend around 10 AM and was acting abnormal. His friend did pick him up and patient was altered. Patient did get in the vehicle with him. They drove to his friend's house. The friend ran inside for minute and when he came out patient was outside of the car and had a seizure. No reported injury. Patient omits to feeling drowsy at this time, otherwise has no complaints. Friend states patient was recently hospitalized and does have a history of seizures. - Related Data Home Medications Medication Instructions Recorded Confirmed Isosorbide Mononitrate ER [Imdur] 30 mg PO DAILY 09/07/17 04/17/23 lisinopriL [Zestril] 10 mg PO DAILY 09/07/17 04/17/23 Donepezil [Aricept] 10 mg PO HS 04/11/19 04/17/23 Temazepam [Restoril] 30 mg PO HS 04/11/19 04/17/23 Citalopram Hydrobromide [CeleXA] 20 mg PO DAILY 03/22/23 04/17/23 Cyclobenzaprine [Flexeril] 10 mg PO BID PRN 03/22/23 04/17/23 Olopatadine HCl [Patanol 0.1%] 1 drop BOTH EYES TID 03/22/23 04/17/23 Pantoprazole Sodium [Protonix] 20 mg PO BID 03/22/23 04/17/23 oxyCODONE-APAP 10-325MG [Percocet 1 tab PO QID 03/22/23 04/17/23 10-325 mg] Previous Rx's Medication Instructions Recorded Aspirin 81 mg PO DAILY #1 chewable 02/27/19 Atorvastatin [Lipitor] 80 mg PO HS #30 tab 04/06/23 LORazepam [Ativan] 1 mg PO TID PRN #0 04/06/23 Nicotine 14Mg/24Hr Patch [Habitrol] 1 patch TRANSDERM DAILY #14 patch 04/06/23 Ticagrelor [Brilinta] 90 mg PO BID #60 tab 04/06/23 polyethylene glycoL 3350 [Miralax] 17 gm PO DAILY packet 04/06/23 Allergies Allergy/AdvReac Type Severity Reaction Status Date / Time alprazolam [From Xanax] Allergy Unknown Verified 04/15/23 17:34 codeine Allergy Rash/Hives Verified 04/15/23 17:34 zolpidem [From Ambien] AdvReac "salty" Verified 04/15/23 17:34 taste in mouth, numb mouth Review of Systems ROS Statement: Those systems with pertinent positive or pertinent negative responses have been documented in the HPI. ROS Other: All systems not noted in ROS Statement are negative. Constitutional: Denies: fever Eyes: Denies: eye pain ENT: Denies: ear pain Respiratory: Denies: cough Cardiovascular: Denies: chest pain Endocrine: Reports: fatigue Gastrointestinal: Denies: abdominal pain Musculoskeletal: Denies: back pain Neurological: Reports: as per HPI, confusion. Denies: headache Past Medical History Past Medical History: Coronary Artery Disease (CAD), CVA/TIA, GERD/Reflux, Hyperlipidemia, Hypertension, Liver Disease, Myocardial Infarction ([place]), Vascular Disorder Additional Past Medical History / Comment(s): Patient states he was admitted to the hospital January after a fall with head injury/new onset seizures and was hospitalized at [facility] in [place]. He was on life support and was extubated and had one more seizure. 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 Patient states he has Hepatitis C. Last Myocardial Infarction Date:: 2011 History of Any Multi-Drug Resistant Organisms: None Reported Past Surgical History: Heart Catheterization With Stent, Orthopedic Surgery Additional Past Surgical History / Comment(s): PCI with a total of 7 stents per pt, L caratid endartectomy, L shoulder surgery for injury, R knee/R hip/R elbow/R wrist ligament/tendon type surgeries injuries-has pins in hand, colonoscopy. Past Anesthesia/Blood Transfusion Reactions: No Reported Reaction Date of Last Stent Placement:: 2011 Past Psychological History: Anxiety Smoking Status: Current every day smoker Past Alcohol Use History: None Reported Past Drug Use History: Marijuana - Past Family History Father Family Medical History: CVA/TIA Additional Family Medical History / Comment(s): Father is from CVA. Pt states father from "stupidity." Mother Family Medical History: Diabetes Mellitus Additional Family Medical History / Comment(s): Mother from diabetes at the age of 52 yrs. Brother(s) Family Medical History: Diabetes Mellitus Additional Family Medical History / Comment(s): Brother at the age of 32 yrs from type 1 diabetes. General Exam Limitations: altered mental status General appearance: other (Drowsy. Arousable to voice) Head exam: Present: atraumatic, normocephalic Eye exam: Present: normal appearance, PERRL, EOMI Neck exam: Present: normal inspection. Absent: tenderness Respiratory exam: Present: normal lung sounds bilaterally Cardiovascular Exam: Present: regular rate, normal rhythm GI/Abdominal exam: Present: soft. Absent: tenderness Extremities exam: Present: normal inspection. Absent: pedal edema, calf tenderness Neurological exam: Present: alert, altered, CN II-XII intact, other (Limited exam secondary to drowsiness and limited compliance). Absent: motor sensory deficit Expanded Neurological exam: Present: protecting the airway Patient oriented to: Absent: person, place, time Cranial nerves: EOM's Intact: Normal Motor strength exam: RUE: 5, LUE: 5, RLE: 5, LLE: 5 Eye Response: (3) open to voice Motor Response: (6) obeys commands Verbal Response: (4) confused conversation Psychiatric exam: Present: flat affect Skin exam: Present: normal color Course Vital Signs 04/17/23 13:51 Temperature 96.9 F L Pulse Rate 104 H Respiratory 18 Rate Blood Pressure 159/105 O2 Sat by Pulse 95 Oximetry EKG Findings - EKG Results: EKG: interpreted by ERMD (PVC present.), sinus rhythm, normal axis, normal QRS, normal ST/T EKG shows: tachycardia Medical Decision Making - Medical Decision Making Was pt. sent in by a medical professional or institution (, PA, SOLE CEMENTER, urgent care, hospital, or penitentiary...) When possible be specific @ -No Did you speak to anyone other than the patient for history (EMS, parent, family, police, friend...)? What history was obtained from this source @ -Patient friend provides majority of history is patient was a very poor historian and altered Did you review nursing and triage notes (agree or disagree)? Why? @ -I reviewed and agree with nursing and triage notes Were old charts reviewed (outside hosp., previous admission, EMS record, old EKG, old radiological studies, urgent care reports/EKG's, penitentiary records)? Report findings @ -Previous admission reviewed Differential Diagnosis (chest pain, altered mental status, abdominal pain women, abdominal pain men, vaginal bleeding, weakness, fever, dyspnea, syncope, headache, dizziness, GI bleed, back pain, seizure, CVA, palpatations, mental health, musculoskeletal)? @ -Differential Seizure: Recurrent seizure disorder, febrile seizure, alcohol withdrawal, stimulants, men ingitis, encephalitis, intercranial hemorrhage, intracranial tumor, stroke, eclampsia, thyrotoxicosis, hypocalcemia, hyponatremia, hypernatremia, hypomagnesemia, psychogenic, this is not meant to be an all-inclusive list. EKG interpreted by me (3pts min.). @ -As above X-rays interpreted by me (1pt min.). @ - CT interpreted by me (1pt min.). @ -Report reviewed U/S interpreted by me (1pt. min.). @ -None done What testing was considered but not performed or refused? (CT, X-rays, U/S, labs)? Why? @ -None What meds were considered but not given or refused? Why? @ -None Did you discuss the management of the patient with other professionals (professionals i.e. , PA, SOLE CEMENTER, lab, RT, psych nurse, adoption social worker, numerical control operator, teacher, identification officer, case folder)? Give summary @ -Case discussed with Dr. El who will admit with neurology consult Was smoking cessation discussed for >3mins.? @ -No Was critical care preformed (if so, how long)? @ -No Were there social determinants of health that impacted care today? How? (Homelessness, low income, unemployed, alcoholism, drug addiction, transportation, low edu. Level, literacy, decrease access to med. care, correction, rehab)? @ -No Was there de-escalation of care discussed even if they declined (Discuss DNR or withdrawal of care, Hospice)? DNR status @ -No What co-morbidities impacted this encounter? (DM, HTN, Smoking, COPD, CAD, Cancer, CVA, ARF, Chemo, Hep., AIDS, mental health diagnosis, sleep apnea, morbi d obesity)? @ -None Was patient admitted / discharged? Hospital course, mention meds given and route, prescriptions, significant lab abnormalities, going to OR and other pertinent info. @ -Patient reevaluated and significant improved. Patient is alert and oriented. Patient has new-onset seizures without currently on medication. Patient will be admitted, admission orders written. Neurology will be placed on consult. EEG will be ordered. Undiagnosed new problem with uncertain prognosis? @ -No Drug Therapy requiring intensive monitoring for toxicity (Heparin, Nitro, Insulin, Cardizem)? @ -No Were any procedures done? @ -No Diagnosis/symptom? @ -New-onset seizures Acute, or Chronic, or Acute on Chronic? @ -Acute Uncomplicated (without systemic symptoms) or Complicated (systemic symptoms)? @ -default Side effects of treatment? @ -No Exacerbation, Progression, or Severe Exacerbation? @ -No Poses a threat to life or bodily function? How? (Chest pain, USA, OR, pneumonia, PE, COPD, DKA, ARF, appy, cholecystitis, CVA, Diverticulitis, Homicidal, Suicidal, threat to staff... and all critical care pts) @ -No - Lab Data Result diagrams: 04/17/23 14:15 04/17/23 14:15 Lab Results 04/17/23 04/17/23 Range/Units 14:15 14:15 WBC 11.3 H (3.8-10.6) k/uL RBC 4.76 (4.30-5.90) m/uL Hgb 14.4 (13.0-17.5) gm/dL Hct 44.0 (39.0-53.0) % MCV 92.6 (80.0-100.0) fL MCH 30.4 (25.0-35.0) pg MCHC 32.8 (31.0-37.0) g/dL RDW 13.7 (11.5-15.5) % Plt Count 321 (150-450) k/uL MPV 7.6 Neutrophils % 70 % Lymphocytes % 19 % Monocytes % 7 % Eosinophils % 2 % Basophils % 0 % Neutrophils # 7.9 H (1.3-7.7) k/uL Lymphocytes # 2.2 (1.0-4.8) k/uL Monocytes # 0.8 (0-1.0) k/uL Eosinophils # 0.3 (0-0.7) k/uL Basophils # 0.0 (0-0.2) k/uL Sodium 136 L (137-145) mmol/L Potassium 4.8 (3.5-5.1) mmol/L Chloride 104 (98-107) mmol/L Carbon Dioxide 21 L (22-30) mmol/L Anion Gap 11 mmol/L BUN 14 (9-20) mg/dL Creatinine 1.05 (0.66-1.25) mg/dL Est GFR (CKD-EPI)AfAm 82 (>60 ml/min/1.73 sqM) Est GFR (CKD-EPI)NonAf 71 (>60 ml/min/1.73 sqM) Glucose 121 H (74-99) mg/dL Calcium 9.9 (8.4-10.2) mg/dL Magnesium 2.0 (1.6-2.3) mg/dL Total Bilirubin 0.7 (0.2-1.3) mg/dL AST 22 (17-59) U/L ALT 21 (4-49) U/L Alkaline Phosphatase 121 (38-126) U/L Total Protein 7.4 (6.3-8.2) g/dL Albumin 4.3 (3.5-5.0) g/dL Serum Alcohol <10 mg/dL Disposition Clinical Impression: Seizure Disposition: ADMITTED IP TO THIS HOSP Is patient prescribed a controlled substance at d/c from ED?: No Referrals: Aaron Felix MD [Primary Care Provider] - 1-2 days Time of Disposition: 15:36
[2023-04-17 14:30] LABS: Basophils % (A) 0 %; Eosinophils # (A) 0.3 k/uL (0-0.7); Eosinophils % (A) 2 %; HGB 14.4 gm/dL (13.0-17.5); Lymphocytes # (A) 2.2 k/uL (1.0-4.8); Lymphocytes % (A) 19 %; MCH 30.4 pg (25.0-35.0); MCHC 32.8 g/dL (31.0-37.0); MCV 92.6 fL (80.0-100.0); Mean Platelet Volume 7.6; Monocytes # (A) 0.8 k/uL (0-1.0); Monocytes % (A) 7 %; Neutrophils # (A) 7.9 k/uL (1.3-7.7); Neutrophils % (A) 70 %; Platelet Count 321 k/uL (150-450); RBC 4.76 m/uL (4.30-5.90); RDW 13.7 % (11.5-15.5); WBC 11.3 k/uL (3.8-10.6)
[2023-04-17 14:43] LABS: ALT 21 U/L (4-49); African American GFR (CKD) 82 (>60 ml/min/1.73 sqM); Albumin 4.3 g/dL (3.5-5.0); Alcohol <10 mg/dL; Anion Gap 11 mmol/L; Blood Urea Nitrogen 14 mg/dL (9-20); Calcium 9.9 mg/dL (8.4-10.2); Carbon Dioxide 21 mmol/L (22-30); Chloride 104 mmol/L (98-107); Glucose 121 mg/dL (74-99); Non-African American GFR(CKD) 71 (>60 ml/min/1.73 sqM); Sodium 136 mmol/L (137-145); Total Bilirubin 0.7 mg/dL (0.2-1.3); Total Protein 7.4 g/dL (6.3-8.2)
--- NOTE | 2023-04-17 14:47 | CT ---
EXAMINATION TYPE: CT brain wo con DATE OF EXAM: 04/17/2023 COMPARISON: 04/15/2023 HISTORY: Seizure activity Technique: Multiple axial images are obtained from skull base to vertex without use of IV contrast ma terial. FINDINGS: The ventricles, basal cisterns and sulci over convexities within normal limits and there is no mass e ffect or shift of midline structures. There are remote lacunar infarcts in the basal ganglia bilaterally which are stable. There is no acute intra or extra-axial hemorrhage. The posterior fossa including the brainstem, fourth ventricle and cerebellar pontine angles appear gr ossly normal. The intraorbital contents appear normal and symmetric. Visualized paranasal sinuses and mastoid air cells are well aerated IMPRESSION: 1 age-appropriate atrophy. 2. remote lacunar infarcts in the lateral basal ganglia which are stable. 3. No acute bleed or mass effect.
[2023-04-17 14:51] LABS: AST 22 U/L (17-59); Alkaline Phosphatase 121 U/L (38-126); Potassium 4.8 mmol/L (3.5-5.1)
[2023-04-17] MEDS ORDERED: ACETAMINOPHEN TAB 325 MG TAB PO PRN (15:37)
[2023-04-17] MEDS ORDERED: NALOXONE 0.4 MG/ML 1 ML VIAL IV PRN (15:37)
[2023-04-17] MEDS: oxyCODONE-APAP 5-325MG 1 EACH TAB PO PRN (15:46)
[2023-04-17] MEDS ORDERED: LORazepam 2 MG/ML INJ IV STA (16:51)
[2023-04-17] MEDS ORDERED: CYCLOBENZAPRINE 10 MG TAB PO PRN (20:39)
[2023-04-17] MEDS ORDERED: levETIRAcetam 500 MG TAB PO SCH (21:00)
[2023-04-17] MEDS: DONEPEZIL 10 MG TAB PO SCH (21:22)
[2023-04-17] MEDS: levETIRAcetam 500 MG TAB PO SCH (21:22)
[2023-04-17] MEDS: TICAGRELOR 90 MG TAB PO SCH ×2 (21:22→21:25)
[2023-04-17] MEDS: ATORVASTATIN 80 MG TAB PO SCH (21:25)
[2023-04-17] MEDS: TEMAZEPAM 15 MG CAP PO SCH (22:38)
[2023-04-17] MEDS: KETOTIFEN 0.025% OPHTH DROPS 5 ML BTL BOTH EYES SCH (22:46)
[2023-04-17] MEDS ORDERED: levETIRAcetam IV 1,000 MG in SODIUM CHLORIDE 0.9% 250 ML IVPB ONE (23:30)
[2023-04-17] MEDS ORDERED: levETIRAcetam IV 500 MG/5 ML VIAL IVP ONE (23:45)
[2023-04-18 00:05] LABS: Appearance,Urine Clear (Clear); Bilirubin,Urine Negative (Negative); Blood,Urine Negative (Negative); Color,Urine Yellow; Glucose,Urine (UA) Negative (Negative); Ketones,Urine Negative (Negative); Leukocyte Esterase,Urine Negative (Negative); Nitrite,Urine Negative (Negative); Protein,Urine Negative (Negative); Specific Gravity,Urine 1.018 (1.001-1.035); Urobilinogen,Urine <2.0 mg/dL (<2.0)
[2023-04-18 00:28] LABS: Amphetamine Screen,Urine Not Detected (NotDetected); Barbiturate Screen,Urine Not Detected (NotDetected); Benzodiazepines Screen,Urine Detected (NotDetected); Cocaine Screen,Urine Not Detected (NotDetected); Methadone Screen, Urine Not Detected (NotDetected); Opiate Screen,Urine Not Detected (NotDetected); Oxycodone Screen, Urine Detected (NotDetected); Phencyclidine Screen,Urine Not Detected (NotDetected); Tricyclic Antidepressant,Urine Not Detected (NotDetected); Urn Cannabinoid Scrn Not Detected (NotDetected)
[2023-04-18] MEDS: oxyCODONE-APAP 5-325MG 1 EACH TAB PO PRN (01:42)
[2023-04-18] MEDS: traMADol 50 MG TAB PO PRN (03:42)
[2023-04-18] MEDS: PANTOPRAZOLE 40 MG TABLET PO SCH (09:26)
[2023-04-18] MEDS: polyethylene glycoL 3350 17 GM POWD.PACK PO SCH (09:26)
[2023-04-18] MEDS: ASPIRIN 81 MG PO SCH (09:26)
[2023-04-18] MEDS: lisinopriL 10 MG TAB PO SCH (09:27)
[2023-04-18] MEDS: ISOSORBIDE MONONITRATE ER 30 MG TAB.ER.24H PO SCH (09:27)
[2023-04-18] MEDS: levETIRAcetam 500 MG TAB PO SCH (09:27)
[2023-04-18] MEDS: CITALOPRAM HYDROBROMIDE 20 MG TAB PO SCH (09:27)
[2023-04-18] MEDS: KETOTIFEN 0.025% OPHTH DROPS 5 ML BTL BOTH EYES SCH ×3 (09:28→19:50)
[2023-04-18 11:50] LABS: Glucose,Whole Blood 105 mg/dL (70-110)
--- NOTE | 2023-04-18 12:55 | P.CNNES ---
History of Present Illness Consult date: 04/18/23 Requesting physician: Gregorio Villeda Reason for Consult: seizure History of Present Illness: This is a 72-year-old gentleman, recent stroke over the right thalamus and left temporal/occipital status post IV TPA on 03/27/23, multiple TIAs, symptomatic right ICA status post right carotid endartectomy, coronary artery disease status post multiple stents, hypertension, hyperlipidemia, tobacco use who presented emergency department for altered mental status. Neurology is consulted for seizure. History is obtained from medical record. The ED notes family spoke with the patient around 1:30 AM yesterday and was active in well at that time that the beta called his friend around 10 AM and was acting abnormal and the friend picked him up and the patient was altered and seems the patient the friend noticed seizure-like activity. Seems the patient had a seizure yesterday and the Per the ED team is as the patient the was reevaluated the patient has significant improvement. around 11:25 PM I was notified by the nurse that the patient was complaining of back pain and while the nurse was helping him to use a urinal he passed out and collapsed patient lost consciousness for a couple seconds but no seizure-like activity and he was alert oriented 1-2. I told the nurse to give him an additional Keppra 1 g. Today and according to the nurse he was following commands and the was alert oriented 3 and. But he was aggressive. Upon seeing him he had his eyes closed and not responding. Because of his agitation he was on 4 point restraints. Per nurse he did not receive any medication to cause his condition. Of note I seen the patient last in our facility on 04/04/2023 was the patient had a stroke and received IV TPA and he had a right thalamic stroke as well as left temporal occipital stroke and I felt it was embolic in nature. He had discoordinant of reads on ultrasound and CTA for carotids and vascular felt medical management. ISRAEL is negative. He was recommended to be on ASA and Brilinta for secondary stroke prophylaxis. Please refer to my notes for further details. Upon reviewing his medical record seems that the patient had multiple EEGs in 2019 and no seizure or epileptiform discharges. Also one of the episodes was captured and no seizure noted. Some of the work-up during this hospital visit consisted of: Patient is afebrile. Initial white blood cells 11.3 thousand Sodium is 136, who goes as 121, calcium, magnesium, HDL 30 BUN/creatinine is within normal limits Urine toxicology screen is positive for benzos as well as oxycodone. Otherwise dresses nondetected. Serum alcohol was less than 10. CT of the head is reported as age-appropriate atrophy. Remote lacunar infarct in the lateral basal ganglia which are stable. No acute bleed or mass effect. Personally review the CT head and there is no acute or subacute ischemia. There is no bleed. There is no mass effect. Review of Systems Review of systems Limited but the positive and the negative as per HPI Past Medical History Past Medical History: Coronary Artery Disease (CAD), CVA/TIA, GERD/Reflux, Hyperlipidemia, Hypertension, Liver Disease, Myocardial Infarction ([place]), Vascular Disorder Additional Past Medical History / Comment(s): Patient states he was admitted to the hospital January after a fall with head injury/new onset seizures and was hospitalized at [facility] in [place]. He was on life support and was extubated and had one more seizure. 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 Patient states he has Hepatitis C. Last Myocardial Infarction Date:: 2011 History of Any Multi-Drug Resistant Organisms: None Reported Past Surgical History: Heart Catheterization With Stent, Orthopedic Surgery Additional Past Surgical History / Comment(s): PCI with a total of 7 stents per pt, L caratid endartectomy, L shoulder surgery for injury, R knee/R hip/R elbow/R wrist ligament/tendon type surgeries injuries-has pins in hand, colonoscopy. Past Anesthesia/Blood Transfusion Reactions: No Reported Reaction Date of Last Stent Placement:: 2011 Past Psychological History: Anxiety Additional Psychological History / Comment(s): Pt resides alone. He was to start with home care services, Smoking Status: Current every day smoker Past Alcohol Use History: None Reported Additional Past Alcohol Use History / Comment(s): Pt started smoking in 1962-2 ppd. Past Drug Use History: Marijuana Additional Drug Use History / Comment(s): Patient smokes marijuana at times. Pt states history of ETOH abuse 10yrs ago. - Past Family History Father Family Medical History: CVA/TIA Additional Family Medical History / Comment(s): Father is from CVA. Pt states father from "stupidity." Mother Family Medical History: Diabetes Mellitus Additional Family Medical History / Comment(s): Mother from diabetes at the age of 52 yrs. Brother(s) Family Medical History: Diabetes Mellitus Additional Family Medical History / Comment(s): Brother at the age of 32 yrs from type 1 diabetes. Medications and Allergies Home Medications Medication Instructions Recorded Confirmed Type Isosorbide Mononitrate ER [Imdur] 30 mg PO DAILY 09/07/17 04/17/23 History lisinopriL [Zestril] 10 mg PO DAILY 09/07/17 04/17/23 History Aspirin 81 mg PO DAILY #1 chewable 02/27/19 04/17/23 Rx Donepezil [Aricept] 10 mg PO HS 04/11/19 04/17/23 History Temazepam [Restoril] 30 mg PO HS 04/11/19 04/17/23 History Citalopram Hydrobromide [CeleXA] 20 mg PO DAILY 03/22/23 04/17/23 History Cyclobenzaprine [Flexeril] 10 mg PO BID PRN 03/22/23 04/17/23 History Olopatadine HCl [Patanol 0.1%] 1 drop BOTH EYES TID 03/22/23 04/17/23 History Pantoprazole Sodium [Protonix] 20 mg PO BID 03/22/23 04/17/23 History oxyCODONE-APAP 10-325MG [Percocet 1 tab PO QID 03/22/23 04/17/23 History 10-325 mg] Atorvastatin [Lipitor] 80 mg PO HS #30 tab 04/06/23 04/17/23 Rx LORazepam [Ativan] 1 mg PO TID PRN #0 04/06/23 04/17/23 Rx Ticagrelor [Brilinta] 90 mg PO BID #60 tab 04/06/23 04/17/23 Rx polyethylene glycoL 3350 [Miralax] 17 gm PO DAILY packet 04/06/23 04/17/23 Rx Allergies Allergy/AdvReac Type Severity Reaction Status Date / Time alprazolam [From Xanax] Allergy Unknown Verified 04/17/23 16:19 codeine Allergy Rash/Hives Verified 04/17/23 16:19 nicotine [From Nicoderm CQ] AdvReac Hallucinati Verified 04/17/23 16:19 ons zolpidem [From Ambien] AdvReac "salty" Verified 04/17/23 16:19 taste in mouth, numb mouth Physical Examination - Vital Signs Vital Signs: Vital Signs Temp Pulse Pulse Resp BP BP Pulse Ox 04/18/23 11:10 102 H 18 100/67 98 04/18/23 10:08 91 20 115/84 100 04/18/23 08:13 97.8 F 85 17 117/72 97 04/18/23 02:00 97.8 F 82 18 116/65 98 04/17/23 21:25 92 17 99/73 96 04/17/23 20:00 97.6 F 87 19 99/73 96 04/17/23 17:03 96 18 128/80 96 04/17/23 15:53 82 19 102/70 99 04/17/23 13:51 96.9 F L 104 H 18 159/105 95 Intake and Output 04/17/23 04/18/23 04/18/23 22:59 06:59 14:59 Intake Total 200 Output Total 300 0 Balance -300 200 Intake: Oral 200 Output: Urine 300 0 Other: # Voids 1 0 Weight 88.451 kg GENERAL: The patient is lying in bed and is not in acute distress. HENT: Supple neck. NEUROLOGICAL: Very limited. Patient has his eyes closed and is not verbally responsive following commands. He'll grimace his face to painful stimuli and he had one episode where he'll open his eyes and closing right afterward that. No facial weakness. To painful stimuli he'll grimace face but otherwise not were drunk with it to any extremities. Motor: strength is limited in the assessment The tone and the bulk is normal. Was in 4 point restraints. Plantars are mute bilaterally Results - Laboratory Findings CBC and BMP: 04/17/23 14:15 04/17/23 14:15 Abnormal Lab Findings: Abnormal Labs 04/17/23 04/17/23 04/17/23 14:04 14:15 14:15 WBC 11.3 H Neutrophils # 7.9 H Sodium 136 L Carbon Dioxide 21 L Glucose 121 H Ur Oxycodone Screen Detected H U Benzodiazepines Scrn Detected H Assessment and Plan Assessment: This is a 72-year-old gentleman with recent stroke over the right thalamus and left temporal/occipital status post IV TPA on 03/27/23 who presented to the emergency department because of seizure-like activity witnessed by friend. It seems in the ED he had another seizure-like activity. Today he had eyes closed, non-responsive but grimaces face to painful stimuli but no jerking/shaking, foaming. In 2019 was noted that the patient had history of seizure and during that time had seizure-like activity but the three routine EEG were all negative for any seizures or discharges, and one event recorded that was not associated with epileptiform activity. Breakthrough seizures. Seems to the patient had seizure-like activity witnessed by a friend as well as in the ED. Rule out truly epileptic in nature versus nonepileptic especially with a prior EEGs in the past in 2019 in which she had EEGs and an episode was captured and the there is no seizures or discharges. History of reported seizures in the past in 2019 and currently patient was not o n antiepileptic drugs prior to this hospital presentation. As stated above he had three routine EEGs in 2019 in our facility which were negative for seizures or discharges History of recent right thalamic and left temporal occipital stroke status post IV TPA on 03/27/2023. Transesophageal echocardiogram was negative. He had discoordinant of reads on ultrasound and CTA for carotids and vascular f elt medical management. History of right internal carotid stenosis status post carotid endarterectomy History of multiple TIAs History of coronary artery disease status post multiple stents Hypertension Hyperlipidemia Ex-Tobacco use Plan: In the ED the patient was given a total of 2 g of Keppra IV total yesterday. I started the patient on Keppra thousand milligrams 1 tablet twice a day. He was not on any antiepileptic drug prior to this. I change the order of the EEG from urgent stat. I ordered MRI of the brain with and without urgent Ordered the limited 2-D echo, carotid duplex. Ordered lactic acid and prolactin level Patient the home medication of aspirin 81 mg, Brilinta 90 mg 1 tablet twice a day and Lipitor 80mg qhs are restarted for secondary stroke prophylaxis. Placed on seizure precautions seizure pads We'll defer the rest of the medical management to primary team The plan was discussed with the patient's nurse multiple times. Thank you for the consultation UPDATE: I was notified by the cardiac technician the patient got agitated and was the given nursing staff hard time and was told the he will address aggressive. He was refusing the EEG. Upon seeing the patient again he stated that the history is cold and once that addressed. I notified him that we'll get a more blankets but he does cooperate for the EEG so we can get more answers. I will change Keppra to Vimpat since Keppra can cause behavioral and mood side effects. I'll place him on Vimpat 50 mg IV twice a day. Time with Patient: Greater than 30
--- NOTE | 2023-04-18 14:53 | EEG ---
ELECTROENCEPHALOGRAM REPORT CLINICAL HISTORY: This is a 72-year-old gentleman, who presented to the emergency department because of seizure-like activity and had another seizure-like activity in ED. The video EEG is obtained to evaluate for seizure epileptiform activity. RELEVANT MEDICATIONS: 1. Ativan. 2. Keppra. EEG TYPE: A routine 21-channel EEG with video using the 10/20 electrode placement system. DESCRIPTION: Wakefulness is only obtained. During awake state, the background consists of low-to- moderate voltage of 12 hertz activity. At times, the background consists of [id number] voltage of diffuse nonrhythmic theta and delta activity. There was no physiological stage 2 sleep architecture. There is no focal slowing. There is diffuse excessive beta activity. INTERICTAL AND ICTAL: None. ACTIVATION PROCEDURE: Photic stimulation did not evoke a posterior driving response. There is no abnormality during the photic stimulation. Hyperventilation is not performed. CLINICAL INTERPRETATION: This is an abnormal routine EEG. The background slowing is suggestive of mild encephalopathy. Otherwise, there is no focal slowing, epileptiform discharge, or seizure on the EEG. The excessive beta activity is likely due to medication effect (Ativan). Clinical correlation is recommended. MMODL / IJN: [id number] / NEELA
[2023-04-18] MEDS ORDERED: ZIPRASIDONE 20 MG VIAL IM STA ×2 (15:12→21:24)
--- NOTE | 2023-04-18 15:27 | US ---
EXAMINATION TYPE: US carotid duplex BILAT DATE OF EXAM: 04/18/2023 COMPARISON: NONE CLINICAL INDICATION: Male, 72 years old with history of stroke; stroke TECHNIQUE: Carotid duplex ultrasound examination. Indirect Doppler criteria was utilized. FINDINGS: EXAM MEASUREMENTS: RIGHT: Peak Systolic Velocity (PSV) cm/sec ----- Right CCA: 44.7 ----- Right ICA: 60.7 ----- Right ECA: 68.0 ICA/CCA ratio: 1.35 RIGHT: End Diastole cm/sec ----- Right CCA: 0.0 ----- Right ICA: 19.7 ----- Right ECA: 5.7 VERTEBRALS (direction of flow): Right Vertebral: Antegrade [employer] NOTES: patient refused to continue with exam, no images obtained on the left. IMPRESSION: 1. No significant plaque or stenosis of the right common or internal carotid artery. 2. Patient refused exam of the left carotid arteries in the neck. Criteria for Assigning % of Stenosis / Diameter reduction (Estimation based on the indirect measurements of the internal carotid artery velocities (ICA PSV). 1. Normal (no stenosis)=ICA PSV < 125 cm/s: ratio < 2.0: ICA EDV<40 cm/s. 2. Less than 50% stenosis=ICA PSV < 125 cm/s: ratio < 2.0: ICA EDV<40 cm/s. 3. 50 to 69% stenosis=ICA PSV of 125 to 230 cm/s: ration 2.0 ? 4.0: ICA EDV 40-100 cm/s. 4. Greater than 70% stenosis to near occlusion= ICA PSV > 230 cm/s: ratio > 4.0: ICA EDV > 100 cm/s. 5. Near occlusion= ICA PSV velocities may be low or undetectable: variable ratio and ICA EDV. 6. Total occlusion=unable to detect flow.
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
--- NOTE | 2023-04-18 19:01 | XR ---
EXAMINATION TYPE: XR chest 1V portable DATE OF EXAM: 04/18/2023 COMPARISON: 04/15/2023 HISTORY: Shortness of breath TECHNIQUE: Single frontal view of the chest is obtained. FINDINGS: There is no focal air space opacity, pleural effusion, or pneumothorax seen. The cardiac silhouette size is within normal limits. The osseous structures are intact. Coarsened interstitium. Arthropathy of the shoulders. Diffuse osteopenia. Atherosclerotic change aorta and ectasia of the ao rta. IMPRESSION: Coarsened interstitium suggests bronchitis or chronic interstitial lung disease.
[2023-04-18] MEDS: RIVAROXABAN 10 MG TAB PO SCH (19:49)
[2023-04-18] MEDS: TICAGRELOR 90 MG TAB PO SCH (19:49)
[2023-04-18] MEDS: ATORVASTATIN 80 MG TAB PO SCH (19:50)
[2023-04-18] MEDS: DONEPEZIL 10 MG TAB PO SCH (19:50)
[2023-04-18] MEDS: Lacosamide IV (ages 17+ yrs) 200 MG/20 ML ML IVP SCH (19:50)
[2023-04-18] MEDS: TEMAZEPAM 15 MG CAP PO SCH (19:50)
[2023-04-18] MEDS ORDERED: LORazepam 2 MG/ML INJ IM STA (21:24)
[2023-04-19] MEDS ORDERED: ZIPRASIDONE 20 MG VIAL IM STA (01:55)
[2023-04-19] MEDS ORDERED: LORazepam 2 MG/ML INJ IM STA (01:55)
--- NOTE | 2023-04-19 11:10 | P.HP ---
Psychiatric H&P - . H&P Date: 04/19/23 History & Physical: Allergies Allergy/AdvReac Type Severity Reaction Status Date / Time alprazolam [From Xanax] Allergy Unknown Verified 04/17/23 16:19 codeine Allergy Rash/Hives Verified 04/17/23 16:19 nicotine [From Nicoderm CQ] AdvReac Hallucinati Verified 04/17/23 16:19 ons zolpidem [From Ambien] AdvReac "salty" Verified 04/17/23 16:19 taste in mouth, numb mouth Vital Signs Temp 98.2 F 04/18/23 23:00 Pulse 57 L 04/19/23 01:40 Resp 22 04/18/23 23:00 BP 97/62 04/18/23 23:00 Pulse Ox 93 L 04/19/23 08:54 FiO2 Intake & Output 04/18/23 04/19/23 04/19/23 18:59 06:59 18:59 Output Total 625 Balance -625 Output: Urine 625 Other: # Voids 1 Laboratory Last Values WBC 11.3 k/uL (3.8-10.6) H 04/17/23 14:15 RBC 4.76 m/uL (4.30-5.90) 04/17/23 14:15 Hgb 14.4 gm/dL (13.0-17.5) 04/17/23 14:15 Hct 44.0 % (39.0-53.0) 04/17/23 14:15 MCV 92.6 fL (80.0-100.0) 04/17/23 14:15 MCH 30.4 pg (25.0-35.0) 04/17/23 14:15 MCHC 32.8 g/dL (31.0-37.0) 04/17/23 14:15 RDW 13.7 % (11.5-15.5) 04/17/23 14:15 Plt Count 321 k/uL (150-450) 04/17/23 14:15 MPV 7.6 04/17/23 14:15 Neutrophils % 70 % 04/17/23 14:15 Lymphocytes % 19 % 04/17/23 14:15 Monocytes % 7 % 04/17/23 14:15 Eosinophils % 2 % 04/17/23 14:15 Basophils % 0 % 04/17/23 14:15 Neutrophils # 7.9 k/uL (1.3-7.7) H 04/17/23 14:15 Lymphocytes # 2.2 k/uL (1.0-4.8) 04/17/23 14:15 Monocytes # 0.8 k/uL (0-1.0) 04/17/23 14:15 Eosinophils # 0.3 k/uL (0-0.7) 04/17/23 14:15 Basophils # 0.0 k/uL (0-0.2) 04/17/23 14:15 Sodium 136 mmol/L (137-145) L 04/17/23 14:15 Potassium 4.8 mmol/L (3.5-5.1) 04/17/23 14:15 Chloride 104 mmol/L (98-107) 04/17/23 14:15 Carbon Dioxide 21 mmol/L (22-30) L 04/17/23 14:15 Anion Gap 11 mmol/L 04/17/23 14:15 BUN 14 mg/dL (9-20) 04/17/23 14:15 Creatinine 1.05 mg/dL (0.66-1.25) 04/17/23 14:15 Est GFR (CKD-EPI)AfAm 82 (>60 ml/min/1.73 sqM) 04/17/23 14:15 Est GFR (CKD-EPI)NonAf 71 (>60 ml/min/1.73 sqM) 04/17/23 14:15 Glucose 121 mg/dL (74-99) H 04/17/23 14:15 POC Glucose (mg/dL) 105 mg/dL (70-110) 04/18/23 11:49 POC Glu Chain Machine Operator ID Abdi Rashid 04/18/23 11:49 Plasma Lactic Acid Jack 1.3 mmol/L (0.7-2.0) 04/18/23 12:35 Calcium 9.9 mg/dL (8.4-10.2) 04/17/23 14:15 Magnesium 2.0 mg/dL (1.6-2.3) 04/17/23 14:15 Total Bilirubin 0.7 mg/dL (0.2-1.3) 04/17/23 14:15 AST 22 U/L (17-59) 04/17/23 14:15 ALT 21 U/L (4-49) 04/17/23 14:15 Alkaline Phosphatase 121 U/L (38-126) 04/17/23 14:15 Total Protein 7.4 g/dL (6.3-8.2) 04/17/23 14:15 Albumin 4.3 g/dL (3.5-5.0) 04/17/23 14:15 Urine Color Yellow 04/17/23 14:04 Urine Appearance Clear (Clear) 04/17/23 14:04 Urine pH 6.0 (5.0-8.0) 04/17/23 14:04 Ur Specific [place] 1.018 (1.001-1.035) 04/17/23 14:04 Urine Protein Negative (Negative) 04/17/23 14:04 Urine Glucose (UA) Negative (Negative) 04/17/23 14:04 Urine Ketones Negative (Negative) 04/17/23 14:04 Urine Blood Negative (Negative) 04/17/23 14:04 Urine Nitrite Negative (Negative) 04/17/23 14:04 Urine Bilirubin Negative (Negative) 04/17/23 14:04 Urine Urobilinogen <2.0 mg/dL (<2.0) 04/17/23 14:04 Ur Leukocyte Esterase Negative (Negative) 04/17/23 14:04 Urine Opiates Screen Not Detected (NotDetected) 04/17/23 14:04 Ur Oxycodone Screen Detected (NotDetected) H 04/17/23 14:04 Urine Methadone Screen Not Detected (NotDetected) 04/17/23 14:04 Ur Propoxyphene Screen Not Detected (NotDetected) 04/17/23 14:04 Ur Barbiturates Screen Not Detected (NotDetected) 04/17/23 14:04 U Tricyclic Antidepress Not Detected (NotDetected) 04/17/23 14:04 Ur Phencyclidine Scrn Not Detected (NotDetected) 04/17/23 14:04 Ur Amphetamines Screen Not Detected (NotDetected) 04/17/23 14:04 U Methamphetamines Scrn Not Detected (NotDetected) 04/17/23 14:04 U Benzodiazepines Scrn Detected (NotDetected) H 09/29/23 14:04 Urine Cocaine Screen Not Detected (NotDetected) 04/17/23 14:04 U Marijuana (THC) Screen Not Detected (NotDetected) 04/17/23 14:04 Serum Alcohol <10 mg/dL 04/17/23 14:15 04/19/23 11:02 An attempt was made to do a psychiatric evaluation on Gordo James who is a 72-year-old male withrecent stroke over the right thalamus and left temporal/occipital status post IV TPA on 03/27/23, multiple TIAs, symptomatic right ICA status post right carotid endartectomy, coronary artery disease status post multiple stents, hypertension, hyperlipidemia, tobacco use who presented emergency department for altered mental status. I was detected late night around 9:25 PM by the ER physician and again at about 2 AM for request for Geodon 10 mg IM for severe agitation According to the ER physician and the patient seemed to calm down well and that he was on adequate antiseizure medications to administer the Geodon Neurology is consulted for seizure. History is obtained from medical record. Yesterday according to the nurse he was following commands and the was alert oriented 3 and. But he was aggressive. Because of his agitation he was on 4 point restraints. Per nurse he did not receive any medication to cause his condition. Of note I seen the patient last in our facility on 04/04/2023 the patient had a stroke and received IV TPA and he had a right thalamic stroke as well as left temporal occipital stroke most likely embolic in nature. He had discoordinant of reads on ultrasound and CTA for carotids and vascular felt medical management. ISRAEL is negative. He was recommended to be on ASA and Brilinta for secondary stroke prophylaxis. A psychiatric consultation was requested most likely for his management of aggression Patient however at this time was sleeping soundly and was not arousable The staff that was present with him for one-to-one reported that the patient was up most of the night and was restless and anxious and had just fallen back to [facility] We will attempt to see the patient again for further follow-up as well as continue palliated management and supportive care as well as when necessary medications as needed for agitation and aggression Diagnostic impression: Major neurocognitive disorder/delirium unspecified Thank you very much for the kind referral and visual further contact you for any further questions Ag Lauren M.D.
--- NOTE | 2023-04-19 11:57 | P.PN ---
Subjective Progress Note Date: 04/19/23 I am following-up with patient and per nurse, he was agitated and restless overnight and was given Ziprasidone yesterday by psychiatry team. Currently he is restraints and sleeping. Objective - Vital Signs Vital signs: Vital Signs Temp 98.2 F 04/18/23 23:00 Pulse 92 04/19/23 08:00 Resp 22 04/19/23 08:00 BP 97/62 04/18/23 23:00 Pulse Ox 93 L 04/19/23 08:54 FiO2 Intake & Output 04/18/23 04/19/23 04/19/23 18:59 06:59 18:59 Output Total 625 Balance -625 Output: Urine 625 Other: # Voids 1 - Exam General: Lying in bed and does not appear in acute distress. Neuro: Limited since sleeping. Some of the work-up during this hospital visit consisted of: Patient is afebrile. Initial white blood cells 11.3 thousand Plasma lactic acid is 1.3 Sodium is 136, who goes as 121, calcium, magnesium, HDL 30 BUN/creatinine is within normal limits Urine toxicology screen is positive for benzos as well as oxycodone. Otherwise dresses nondetected. Serum alcohol was less than 10. CT of the head is reported as age-appropriate atrophy. Remote lacunar infarct in the lateral basal ganglia which are stable. No acute bleed or mass effect. Personally review the CT head and there is no acute or subacute ischemia. There is no bleed. There is no mass effect. EEG on 04/18/23 STAT: As abnormal. Tobacco slowing suggestive of mild encephalopathy. Otherwise, there is no focal slowing, multiple discharges or seizure on the EEG. The excessive beta activity is likely due to medication effect (Ativan). - Labs CBC & Chem 7: 04/17/23 14:15 04/17/23 14:15 Assessment and Plan Assessment: This is a 72-year-old gentleman with recent stroke over the right thalamus and left temporal/occipital status post IV TPA on 03/27/23 who presented to the emergency department because of seizure-like activity witnessed by friend. It seems in the ED he had another seizure-like activity. Today he had eyes closed, non-responsive but grimaces face to painful stimuli but no jerking/shaking, foaming. In 2019 was noted that the patient had history of seizure and during that time had seizure-like activity but the three routine EEG were all negative for any seizures or discharges, and one event recorded that was not associated with epileptiform activity. Breakthrough seizures. Seems to the patient had seizure-like activity witnessed by a friend as well as in the ED. Rule out truly epileptic in nature versus nonepileptic especially with a prior EEGs in the past in 2019 in which she had EEGs and an episode was captured and the there is no seizures or discharges. On EEG mild encephalopathy but no seizure or discharges. Delerium into this hospital stay he is agitated and restless History of reported seizures in the past in 2019 and currently patient was not on antiepileptic drugs prior to this hospital presentation. As stated above he had three routine EEGs in 2019 in our facility which were negative for seizures or discharges History of recent right thalamic and left temporal occipital stroke status post IV TPA on 03/27/2023. Transesophageal echocardiogram was negative. He had discoordinant of reads on ultrasound and CTA for carotids and vascular felt medical management. History of right internal carotid stenosis status post carotid endarterectomy History of multiple TIAs History of coronary artery disease status post multiple stents Hypertension Hyperlipidemia Ex-Tobacco use Plan: He was not on any antiepileptic drug prior to this. During this hospital stay he was started on Keppra but was more agitated and restless so stopped yesterday and placed on Vimpat 50mg IV bid. Pending MRI of the brain with and without urgent Ordered the limited 2-D echo Carotid duplex was reported as no significant plaque or stenosis of the right common or internal carotid artery. Patient refuses exam on the left carotid artery in the neck. Pending prolactin level Patient the home medication of aspirin 81 mg, Brilinta 90 mg 1 tablet twice a day and Lipitor 80mg qhs are restarted for secondary stroke prophylaxis. Placed on seizure precautions seizure pads Psychiatry is consulted We'll defer the rest of the medical management to primary team The plan was discussed with the patient's nurse. Dr. Saldaña will start neurology service tomorrow A.M. Time with Patient: Less than 30
[2023-04-19] MEDS: RIVAROXABAN 10 MG TAB PO SCH ×2 (12:39→12:41)
[2023-04-19] MEDS: LORazepam 1 MG TAB PO PRN ×2 (12:40→17:21)
[2023-04-19] MEDS: ISOSORBIDE MONONITRATE ER 30 MG TAB.ER.24H PO SCH (12:40)
[2023-04-19] MEDS: PANTOPRAZOLE 40 MG TABLET PO SCH (12:40)
[2023-04-19] MEDS: CITALOPRAM HYDROBROMIDE 20 MG TAB PO SCH (12:41)
[2023-04-19] MEDS: TICAGRELOR 90 MG TAB PO SCH ×2 (12:41→20:14)
[2023-04-19] MEDS: ASPIRIN 81 MG PO SCH (12:41)
[2023-04-19] MEDS: lisinopriL 10 MG TAB PO SCH (12:41)
[2023-04-19] MEDS: KETOTIFEN 0.025% OPHTH DROPS 5 ML BTL BOTH EYES SCH ×3 (12:42→21:42)
[2023-04-19] MEDS: Lacosamide IV (ages 17+ yrs) 200 MG/20 ML ML IVP SCH ×2 (12:44→20:18)
[2023-04-19] MEDS: polyethylene glycoL 3350 17 GM POWD.PACK PO SCH (12:44)
[2023-04-19] MEDS: oxyCODONE-APAP 5-325MG 1 EACH TAB PO PRN ×2 (17:20→20:14)
[2023-04-19] MEDS: traMADol 50 MG TAB PO PRN ×2 (18:48→23:35)
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
[2023-04-19] MEDS: TEMAZEPAM 15 MG CAP PO SCH (20:14)
[2023-04-19] MEDS: DONEPEZIL 10 MG TAB PO SCH (20:14)
[2023-04-19] MEDS: ATORVASTATIN 80 MG TAB PO SCH (20:14)
[2023-04-20] MEDS: oxyCODONE-APAP 5-325MG 1 EACH TAB PO PRN ×5 (00:59→19:48)
[2023-04-20] MEDS: LORazepam 1 MG TAB PO PRN ×2 (01:04→09:06)
[2023-04-20] MEDS: CITALOPRAM HYDROBROMIDE 20 MG TAB PO SCH (09:06)
[2023-04-20] MEDS: lisinopriL 10 MG TAB PO SCH (09:06)
[2023-04-20] MEDS: RIVAROXABAN 10 MG TAB PO SCH (09:06)
[2023-04-20] MEDS: ASPIRIN 81 MG PO SCH (09:06)
[2023-04-20] MEDS: TICAGRELOR 90 MG TAB PO SCH ×2 (09:06→21:26)
[2023-04-20] MEDS: ISOSORBIDE MONONITRATE ER 30 MG TAB.ER.24H PO SCH (09:06)
[2023-04-20] MEDS: PANTOPRAZOLE 40 MG TABLET PO SCH (09:06)
[2023-04-20] MEDS: Lacosamide IV (ages 17+ yrs) 200 MG/20 ML ML IVP SCH (09:07)
[2023-04-20] MEDS: polyethylene glycoL 3350 17 GM POWD.PACK PO SCH (09:08)
[2023-04-20] MEDS ORDERED: LORazepam 2 MG/ML INJ IV STA (09:29)
[2023-04-20] MEDS: KETOTIFEN 0.025% OPHTH DROPS 5 ML BTL BOTH EYES SCH ×3 (09:42→21:26)
--- NOTE | 2023-04-20 11:10 | CA ---
Transthoracic Echo Report Name: Gordo aJmes Age: 72 Gender: M : 1950 Exam Date: 04/20/2023 08:03 Exam Location: [place] [facility] Ht (in): 72 Wt (lb): 195 Ordering Physician: Chris Bejarano MD Attending/Referring Phys: Automobile Appraiser Rachael Menon [facility] Procedure CPT: Indications: limited. syncope Cardiac Hx: Technical Quality: Technically difficult study Contrast 1: Lumason Total Dose (mL): 5 Contrast 2: Total Dose (mL): MEASUREMENTS (Male / Female) Normal Values 2D ECHO LV Diastolic Diameter PLAX 5.2 cm 4.2 - 5.9 / 3.9 - 5.3 cm LV Systolic Diameter PLAX 4.1 cm IVS Diastolic Thickness 0.9 cm 0.6 - 1.0 / 0.6 - 0.9 cm LVPW Diastolic Thickness 0.7 cm 0.6 - 1.0 / 0.6 - 0.9 cm LV Relative Wall Thickness 0.3 LV Diastolic Volume MOD BP 124.8 cm??? 67 - 155 / 56 - 104 cm??? LV Systolic Volume MOD BP 71.2 cm??? 22 - 58 / 19 - 49 cm??? LV Ejection Fraction MOD BP 42.9 % >= 55 % LV Cardiac Index MOD BP 2085.1 cm???/min???m??? LV Diastolic Volume MOD 4C 126.0 cm??? LV Systolic Volume MOD 4C 78.4 cm??? LV Ejection Fraction MOD 4C 37.8 % LV Cardiac Index MOD 4C 1853.7 cm???/min???m??? LV Diastolic Length 4C 8.7 cm LV Systolic Length 4C 6.6 cm LV Diastolic Volume MOD 2C 120.4 cm??? LV Systolic Volume MOD 2C 66.6 cm??? LV Ejection Fraction MOD 2C 44.7 % LV Cardiac Index MOD 2C 2093.6 cm???/min???m??? LV Diastolic Length 2C 8.4 cm LV Systolic Length 2C 6.8 cm DOPPLER Mitral E Point Velocity 47.0 cm/s Mitral A Point Velocity 88.5 cm/s Mitral E to A Ratio 0.5 MV Deceleration Time 179.4 ms LV E' Lateral Velocity 10.2 cm/s Mitral E to LV E' Lateral Ratio 4.6 LV E' Septal Velocity 4.5 cm/s Mitral E to LV E' Septal Ratio 10.4 TR Peak Velocity 141.3 cm/s TR Peak Gradient 8.0 mmHg Right Atrial Pressure 3.0 mmHg Pulmonary Artery Systolic Pressu 11.0 mmHg Right Ventricular Systolic Press 11.0 mmHg FINDINGS Left Ventricle Left ventricular cavity size normal. Left ventricular wall thickness normal. Moderately increased left ventricular systolic volume. Moderately decreased left ventricular ejection fraction. Left ventricular ejection fraction is estimated at 40-45%. Mid-basal inferior wall hypokinesis. Mid-basal inferolateral hypokinesis. Inferoseptum hypokinesis. Right Ventricle Right Atrium Left Atrium Mitral Valve Aortic Valve Tricuspid Valve Trace tricuspid regurgitation. Pulmonic Valve Pericardium No pericardial effusion. Aorta CONCLUSIONS Limited study for syncope. Cardiomyopathy with an ejection fraction of 40-45% With inferior wall hypokinesis Previewed by: Dr. Juwan Garcia MD (Electronically Signed) Final Date: 20 April 2023 11:09
--- NOTE | 2023-04-20 11:34 | MR ---
EXAMINATION TYPE: MR brain wo/w con DATE OF EXAM: 04/20/2023 11:17 AM CLINICAL INDICATION:Male, 72 years old with history of seizure; COMPARISON: 04/15/2023 TECHNIQUE: Multi planar, multi sequence imaging was performed through the brain including: T1, T2, In version recovery, susceptibility weighted imaging and gradient echo imaging and Diffusion weighted im aging. The patient was then given intravenous contrast and multi planar, T1 fat-saturation images wer e obtained. IV Contrast: 9 cc Gadavist FINDINGS: Cerebral atrophy with proportional dilation to the ventricular system. Suspected remote injury to the right parietal region near the trigone of the lateral ventricle. Remote injury to the right basal ga nglia and right caudate nucleus. Higher DWI signal within the left temporal lobe series 203 image 120 without definitive low ADC signal. After administration of gadolinium, no abnormal enhancement is se en. Diffusion-weighted imaging shows no evidence of restricted diffusion to suggest acute/subacute infarc t. Intracranial arterial flow voids are maintained. Midline structures show no abnormality. Scattered foci of high T2 signal intensity are seen within the periventricular white matter. The susceptibilit y weighted images do not reveal any evidence for micro-hemorrhage. After administration of gadolinium , no abnormal enhancement is seen. The bone marrow signal is within normal limits. Paranasal sinuses and mastoid air cells: No significant paranasal sinus disease. Visualized orbits: Orbital contents are intact. Left parotid gland lesion measuring 10 x 7 mm IMPRESSION: 1. No evidence of intracranial mass, acute/subacute infarct, or abnormal enhancement. 2. Nonspecific white matter changes, likely related to small vessel ischemic disease 3. Left parotid gland lesion in the deep aspect of the parotid gland could represent intraglandular l ymph node. Consider ultrasound for further evaluation. 4. Remote injuries to the right basal ganglia, right parietal region and right caudate nucleus.
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
--- NOTE | 2023-04-20 15:48 | P.PN ---
Subjective Progress Note Date: 04/20/23 Patient was initially seen by Dr. Chris Bejarano. Please refer to his note for details. Patient is a 72-year-old male with recent stroke this month, who presents with seizure. EEG was negative for any epileptiform activity. Patient was started on Vimpat. Patient is undergoing MRI of the brain. Patient is very agitated and restless and psych is also on board. Patient was seen for a follow-up. Patient states that he just had a seizure. I spoke to the nurse, who declined to patient having any seizure. Patient's daughter stated that he received Ativan for MRI and when he returned from MRI, his blood pressure was very low 63/49 for which he received a fluid bolus, and the blood pressure went up. The nurse has not noticed any seizure-like activity or the sitter present by the bedside. When his blood pressure was low, he was somewhat diaphoretic. Patient has been started on Vimpat by Dr. Bejarano. Patient says that he lives by himself and is 3 dogs. Patient was slightly edgy, becomes irritable on asking certain questions. For example, on asking about if he uses a cane or a walker, states he "just had a brand-new cane". I asked for how long has he been using the cane, patient states "you are not listening to me". I asked if this was the first time he had a new cane or he was using it before, patient states that he just had a brand-new cane. On asking about his medication list and medication history, he became irritable, was upset by I was asked questions about his Percocets and Ativan. Patient says that he receives Ativan 1 mg 3 times a day by Dr. Garcia. He also takes Percocet given by his neurologist Dr. Lane and takes it 3 or 4 times a day on a regular basis. At present he is asking for pain medication. He states that the back does not hurt, "it is killing him". Some of the work-up during this hospital visit consisted of: Patient is afebrile. Initial white blood cells 11.3 thousand Plasma lactic acid is 1.3 Sodium is 136, who goes as 121, calcium, magnesium, HDL 30 BUN/creatinine is within normal limits Urine toxicology screen is positive for benzos as well as oxycodone. Otherwise dresses nondetected. Serum alcohol was less than 10. CT of the head is reported as age-appropriate atrophy. Remote lacunar infarct in the lateral basal ganglia which are stable. No acute bleed or mass effect. Personally review the CT head and there is no acute or subacute ischemia. There is no bleed. There is no mass effect. EEG on 04/18/23 STAT: As abnormal. Tobacco slowing suggestive of mild encephalopathy. Otherwise, there is no focal slowing, multiple discharges or seizure on the EEG. The excessive beta activity is likely due to medication effect (Ativan). Objective - Vital Signs Vital signs: Vital Signs Temp 98.2 F 04/18/23 23:00 Pulse 68 04/20/23 07:00 Resp 18 04/20/23 07:00 BP 142/91 04/20/23 07:00 Pulse Ox 98 04/20/23 07:00 FiO2 Intake & Output 04/19/23 04/20/23 04/20/23 18:59 06:59 18:59 Intake Total 100 477 480 Output Total 625 400 Balance -525 477 80 Intake: Oral 100 477 480 Output: Urine 625 400 Other: # Voids 2 - Exam Patient is an elderly male, appears slightly older than his stated age. Patient is alert awake, fairly well oriented, although he thinks it is 03/20/2023. He states that he is in "state of confusion", but when I asked again, he did admit it is a state of [place]. He knows that he is in [facility]. Speech and language functions are normal. Patient can name and repeat very well. No aphasia or dysarthria. Attention, concentration and fund of knowledge is adequate. Detailed testing deferred. On cranial nerve examination, patient states that he is legally blind in the left eye, with very limited vision from previous stroke. His visual stevens are normal on the right. No neglect. Extraocular muscles are intact with no nystagmus. Pupils are equal, round and reactive to light. Face is symmetric, tongue protrudes to the midline. Palatal elevation and sensation normal, hearin g and shoulder shrug normal, facial sensation normal. On muscle strength testing, there is no pronator drift and the strength is normal in arms and legs distally and proximally, although patient was not cooperating well, with about biceps 5-, and felt "not well" while checking for the deltoids and he stopped cooperating. In the lower limbs, hip flexion is 4/4, ankle dorsiflexion 5/5. Sensory to touch is equal with no neglect on double simultaneous stimulation. Cerebellar function showed no ataxia for [id number] testing. No dysdiadochokinesia. Tone and bulk of muscles normal. Gait deferred.. On general examination, there is no carotid bruit or murmur, S1-S2 audible. Chest is clear on consultation. Abdomen is soft nontender. No organomegaly, bowel sounds present. Patient has significant bruises/ecchymosis involving bilateral extensor forearm from antiplatelet medication. - Labs CBC & Chem 7: 04/17/23 14:15 04/17/23 14:15 Assessment and Plan Assessment: This is a 72-year-old gentleman with recent stroke over the right thalamus and left temporal/occipital status post IV TPA on 03/27/23 who presented to the emergency department because of seizure-like activity witnessed by friend. It seems in the ED he had another seizure-like activity. Today he had eyes closed, non-responsive but grimaces face to painful stimuli but no jerking/shaking, foaming. In 2019 was noted that the patient had history of seizure and during that time had seizure-like activity but the three routine EEG were all negative for any seizures or discharges, and one event recorded that was not associated with epileptiform activity. Breakthrough seizures. Seems to the patient had seizure-like activity witnessed by a friend as well as in the ED. Rule out truly epileptic in nature versus nonepileptic especially with a prior EEGs in the past in 2019 in which he had EEGs and an episode was captured and the there is no seizures or discharges. On EEG mild encephalopathy but no seizure or discharges. Delerium into this hospital stay he is agitated and restless History of reported seizures in the past in 2019 and currently patient was not on antiepileptic drugs prior to this hospital presentation. As stated above he had three routine EEGs in 2019 in our facility which were negative for seizures or discharges History of recent right thalamic and left temporal occipital stroke status post IV TPA on 03/27/2023. Transesophageal echocardiogram was negative. He had discoordinant of reads on ultrasound and CTA for carotids and vascular felt medical management. History of right internal carotid stenosis status post carotid endarterectomy History of multiple TIAs History of coronary artery disease status post multiple stents Hypertension Hyperlipidemia Ex-Tobacco use Plan: He was not on any antiepileptic drug prior to this. During this hospital stay he was started on Keppra but was more agitated and restless so stopped by Dr. Bejarano and placed on Vimpat 50mg IV bid. We will switch to Vimpat 100 mg twice a day. Patient is currently on tramadol, which can lower seizure threshold. We will stop tramadol. MRI of the brain with and without contrast revealed no acute ischemic stroke. Some small vessel disease. I personally reviewed MRI, agree with the findings. Limited 2-D echo revealed cardiomyopathy with EF 40-45%. Moderately increased left ventricular systolic volume. Mid basal inferior wall hypokinesis, mid basal inferior lateral wall hypokinesis, and inferoseptal hypokinesis. Carotid duplex was reported as no significant plaque or stenosis of the right common or internal carotid artery. Patient refuses exam on the left carotid artery in the neck. Prolactin level 15.3 (2-17) Continue home medication of aspirin 81 mg, Brilinta 90 mg 1 tablet twice a day and Lipitor 80mg qhs for secondary stroke prophylaxis. Placed on seizure precautions seizure pads Psychiatry is consulted We'll defer the rest of the medical management to primary team Observed overnight, as patient was hypotensive earlier. If she remains stable overnight, then will be clear for discharge in the morning. Recommend follow-up with his neurologist outpatient.
[2023-04-20] MEDS: LACOSAMIDE 50 MG TABLET PO SCH (21:25)
[2023-04-20] MEDS: TEMAZEPAM 15 MG CAP PO SCH (21:25)
[2023-04-20] MEDS: ATORVASTATIN 80 MG TAB PO SCH (21:26)
[2023-04-20] MEDS: DONEPEZIL 10 MG TAB PO SCH (21:26)
[2023-04-21] MEDS: oxyCODONE-APAP 5-325MG 1 EACH TAB PO PRN ×4 (00:02→12:20)
[2023-04-21] MEDS: LORazepam 1 MG TAB PO PRN (02:35)
[2023-04-21] MEDS: ASPIRIN 81 MG PO SCH (08:37)
[2023-04-21] MEDS: lisinopriL 10 MG TAB PO SCH (08:37)
[2023-04-21] MEDS: CITALOPRAM HYDROBROMIDE 20 MG TAB PO SCH (08:38)
[2023-04-21] MEDS: RIVAROXABAN 10 MG TAB PO SCH (08:38)
[2023-04-21] MEDS: PANTOPRAZOLE 40 MG TABLET PO SCH (08:38)
[2023-04-21] MEDS: LACOSAMIDE 50 MG TABLET PO SCH (08:38)
[2023-04-21] MEDS: TICAGRELOR 90 MG TAB PO SCH (08:38)
[2023-04-21] MEDS: ISOSORBIDE MONONITRATE ER 30 MG TAB.ER.24H PO SCH (08:38)
[2023-04-21] MEDS: polyethylene glycoL 3350 17 GM POWD.PACK PO SCH (08:39)
[2023-04-21] MEDS: KETOTIFEN 0.025% OPHTH DROPS 5 ML BTL BOTH EYES SCH (08:39)
[2023-04-21 10:28] VITALS: RESP 16; TEMP 97.9
[2023-04-21 11:58] VITALS: BP 112/63; PULSE 80
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
--- NOTE | 2023-04-23 10:03 | CDI ---
Documentation Clarification Form Date: 04/23/23 From: Susanne Mcgraw Admit Date: 04/18/2023 06:48:00 PM Patient Name: Gordo James Visit Number: [id number] Discharge Date: 04/21/2023 03:59:00 PM ATTENTION: The Clinical Documentation Specialists (CDI) and [facility] Coding Staff appreciate your assistance in clarifying documentation. Please respond to the clarification below the line at the bottom and electronically sign. The CDI & [facility] Coding staff will review the response and follow-up if needed. Please note: Queries are made part of the Legal Health Record. If you have any questions, please contact the author of this message via ITS. Dr. Stephane El, Your patient has encephalopathy is documented in 04/19 PN. Based on this information and the findings below, is there an additional diagnosis that is clinically appropriate for this patient? Patient history/risk factors: hx stroke with vision loss, dementia w anxiety, cardiomyopathy, hepatitis C, CAD w stents, GERD, HLD Clinical Indicators: EEG report: This is anabnormalroutineEEG.The background slowing issuggestive ofmild encephalopathy. Otherwise, there isnofocal slowing, epileptiform discharge, or seizureon theEEG. Treatment: Is there an additional diagnosis that is clinically appropriate for this patient? 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
== END 2023-04-21 15:59 | disposition home or self-care (01) | DRG 100 ==
LOC: EC 13:42 → 6NMEDSUR 15:37 → 3SCARD 16:55 → OBSVTOIN 04-18 18:48
PROVIDERS: ADMIT Hospitalist; ATTEND Hospitalist
DX: G40.409 Other generalized epilepsy and epileptic syndromes, not intractable, without status epilepticus (principal); G93.41 Metabolic encephalopathy; F03.94 Unspecified dementia, unspecified severity, with anxiety; F05 Delirium due to known physiological condition; I67.89 Other cerebrovascular disease; I42.9 Cardiomyopathy, unspecified; I95.9 Hypotension, unspecified; K76.9 Liver disease, unspecified; B19.20 Unspecified viral hepatitis C without hepatic coma; E78.5 Hyperlipidemia, unspecified; I65.21 Occlusion and stenosis of right carotid artery; I25.10 Atherosclerotic heart disease of native coronary artery without angina pectoris; K21.9 Gastro-esophageal reflux disease without esophagitis; I10 Essential (primary) hypertension; M54.9 Dorsalgia, unspecified; R55 Syncope and collapse; I69.398 Other sequelae of cerebral infarction; H54.62 Unqualified visual loss, left eye, normal vision right eye; I25.2 Old myocardial infarction; G43.909 Migraine, unspecified, not intractable, without status migrainosus; M19.91 Primary osteoarthritis, unspecified site; F17.210 Nicotine dependence, cigarettes, uncomplicated; F12.90 Cannabis use, unspecified, uncomplicated; Z79.82 Long term (current) use of aspirin; Z79.02 Long term (current) use of antithrombotics/antiplatelets; Z79.899 Other long term (current) drug therapy; Z79.891 Long term (current) use of opiate analgesic; Z95.5 Presence of coronary angioplasty implant and graft; Z86.74 Personal history of sudden cardiac arrest; Z87.828 Personal history of other (healed) physical injury and trauma; Z78.1 Physical restraint status; Z71.6 Tobacco abuse counseling; Z88.5 Allergy status to narcotic agent; Z88.8 Allergy status to other drugs, medicaments and biological substances
CPT/HCPCS: 36415; 70450; 70553; 71045; 80053; 80306; 80320; 81003; 83605; 83735; 84146; 85025; 93005; 93308; 93880; 94760; 95816; 96372; 96374; 96375; 96376; 99285

== ENCOUNTER 2023-11-27 14:38 | Observation (INO) | payer MEDICARE, OTHER ==
[2023-11-27 14:55] LABS: Glucose,Whole Blood 108 mg/dL (70-110)
--- NOTE | 2023-11-27 15:05 | ED ---
General Adult HPI - General Chief complaint: Neuro Symptoms/Deficit Stated complaint: Stroke Time Seen by Provider: 11/27/23 14:46 Source: patient, EMS Mode of arrival: EMS Limitations: no limitations - History of Present Illness Initial comments: Dictation was produced using [employer] dictation software. please excuse any grammatical, word or spelling errors. Chief Complaint: 72-year-old male presents to the emergency department for numbness and weakness in his right lower extremity History of Present Illness: Patient 72-year-old male he has past medical history of coronary artery disease, dyslipidemia and hypertension. Patient states he is here today because he is having a stroke. Starting at approximately 12:00 PM began having numbness and weakness to his right lower extremity. Patient has no other complaints. Patient takes anticoagulation medications. Just prior to arrival patient suffered a fall and hit his head on the counter. Patient denies any headache. The ROS documented in this emergency department record has been reviewed and confirmed by me. Those systems with pertinent positive or negative responses have been documented in the HPI. All other systems are other negative and/or noncontributory. - Related Data Home Medications Medication Instructions Recorded Confirmed Isosorbide Mononitrate ER [Imdur] 30 mg PO DAILY 09/07/17 04/17/23 Donepezil [Aricept] 10 mg PO HS 04/11/19 04/17/23 Cyclobenzaprine [Flexeril] 10 mg PO BID PRN 03/22/23 04/17/23 Pantoprazole Sodium [Protonix] 20 mg PO BID 03/22/23 04/17/23 oxyCODONE-APAP 10-325MG [Percocet 1 tab PO QID 03/22/23 04/17/23 10-325 mg] FLUoxetine HCL [PROzac] 60 mg PO W/LUNCH 11/27/23 11/27/23 Fluticasone Nasal [place] [Flonase 1 spray EA NOSTRIL DAILY 11/27/23 11/27/23 Nasal [place]] LORazepam [Ativan] 1 mg PO TID PRN 11/27/23 11/27/23 Metoprolol Succinate (ER) [Toprol 25 mg PO DAILY 11/27/23 11/27/23 Xl] Montelukast [Singulair] 10 mg PO HS 11/27/23 11/27/23 SUMAtriptan succinate 50 mg PO DAILY PRN 11/27/23 11/27/23 traZODone HCL [Trazodone HCl] 100 mg PO HS 11/27/23 11/27/23 Previous Rx's Medication Instructions Recorded Atorvastatin [Lipitor] 80 mg PO HS #30 tab 04/06/23 Lacosamide [Vimpat] 100 mg PO BID #60 tab 04/21/23 Rivaroxaban [Xarelto] 10 mg PO DAILY #30 tab 04/21/23 Allergies Allergy/AdvReac Type Severity Reaction Status Date / Time alprazolam [From Xanax] Allergy Rash/Hives Verified 11/27/23 17:07 codeine Allergy Rash/Hives Verified 11/27/23 17:07 nicotine [From Nicoderm CQ] AdvReac Hallucinati Verified 11/27/23 17:07 ons zolpidem [From Ambien] AdvReac "salty" Verified 11/27/23 17:07 taste in mouth, numb mouth Review of Systems ROS Statement: Those systems with pertinent positive or pertinent negative responses have been documented in the HPI. ROS Other: All systems not noted in ROS Statement are negative. Past Medical History Past Medical History: Coronary Artery Disease (CAD), CVA/TIA, GERD/Reflux, Hyperlipidemia, Hypertension, Liver Disease, Myocardial Infarction (NV), Vascular Disorder Additional Past Medical History / Comment(s): Patient states he was admitted to the hospital January after a fall with head injury/new onset seizures and was hospitalized at [facility] in [place]. He was on life support and was extubated and had one more seizure. 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 Patient states he has Hepatitis C. Last Myocardial Infarction Date:: 2011 History of Any Multi-Drug Resistant Organisms: None Reported Past Surgical History: Heart Catheterization With Stent, Orthopedic Surgery Additional Past Surgical History / Comment(s): PCI with a total of 7 stents per pt, L caratid endartectomy, L shoulder surgery for injury, R knee/R hip/R elbow/R wrist ligament/tendon type surgeries injuries-has pins in hand, colonosc opy. Past Anesthesia/Blood Transfusion Reactions: No Reported Reaction Date of Last Stent Placement:: 2011 Past Psychological History: Anxiety Smoking Status: Current every day smoker Past Alcohol Use History: Rare Past Drug Use History: Marijuana - Past Family History Father Family Medical History: CVA/TIA Additional Family Medical History / Comment(s): Father is from CVA. Pt states father from "stupidity." Mother Family Medical History: Diabetes Mellitus Additional Family Medical History / Comment(s): Mother from diabetes at the age of 52 yrs. Brother(s) Family Medical History: Diabetes Mellitus Additional Family Medical History / Comment(s): Brother at the age of 32 yrs from type 1 diabetes. General Exam - General Exam Comments Initial Comments: PHYSICAL EXAM: General Impression: Alert and oriented x3, not in acute distress HEENT: Normocephalic atraumatic, extra-ocular movements intact, pupils equal and reactive to light bilaterally, mucous membranes moist. Cardiovascular: Heart regular rate and rhythm Chest: Able to complete full sentences, no retractions, no tachypnea Abdomen: abdomen soft, non-tender, non-distended, no organomegaly Musculoskeletal: Pulses present and equal in all extremities, no peripheral edema Motor: no focal deficits noted Neurological: CN II-XII grossly intact, no movement of right lower extremity, no sensory to right lower extremity, NIH score of 8 Skin: Intact with no visualized rashes Psych: Normal affect and mood Limitations: no limitations Course Vital Signs 11/27/23 14:43 Temperature 97.0 F L Pulse Rate 86 Respiratory 16 Rate Blood Pressure 161/99 O2 Sat by Pulse 96 Oximetry - Reevaluation(s) Reevaluation #1: 11/27/23 15:04 Patient activated code stroke. Is not a candidate for alteplase due to use of anticoagulation. EKG Findings - EKG Comments: EKG Findings:: My EKG interpretation: Ventricular rate 84, sinus rhythm, CT interval 165, cures 99, QTc 404. No CT prolongation, no QTC prolongation, no ST or T-wave changes noted. Overall, this EKG is unremarkable Medical Decision Making - Medical Decision Making Was pt. sent in by a medical professional or institution (, PA, TELESALES MANAGER, urgent care, hospital, or assisted...) When possible be specific @ -No Did you speak to anyone other than the patient for history (EMS, parent, family, police, friend...)? What history was obtained from this source @ -No Did you review nursing and triage notes (agree or disagree)? Why? @ -I reviewed and agree with nursing and triage notes Were old charts reviewed (outside hosp., previous admission, EMS record, old EKG, old radiological studies, urgent care reports/EKG's, assisted records)? Report findings @ -Prior charting was reviewed showing last year patient had MRI that showed no acute processes. He has been evaluated for CVA in the past Differential Diagnosis (chest pain, altered mental status, abdominal pain women, abdominal pain men, vaginal bleeding, musculoskeletal, weakness, fever, dyspnea, syncope, headache, dizziness, GI bleed, back pain, seizure, CVA, palpatations, mental health)? @ - Differential CVA: Ischemic stroke, hemorrhagic stroke, brain tumor, atypical migraine, Wernicke's encephalopathy, seizure, multiple sclerosis, meningitis, encephalitis, hypoglycemia, Guillain-[place], electrolytes disturbance, myasthenia gravis.... This is not meant to be an all-inclusive list EKG interpreted by me (3pts min.). @ -My EKG interpretation: Ventricular rate 84, sinus rhythm, CT interval 165, cures 99, QTc [address] prolongation, no QTC prolongation, no ST or T-wave changes noted. Overall, this EKG is unremarkable X-rays interpreted by me (1pt min.). @ -Chest x-ray shows questionable CHF CT interpreted by me (1pt min.). @ -CT brain shows no acute processes. CT angiography of the head and neck shows no large vessel occlusion U/S interpreted by me (1pt. min.). @ -None done What testing was considered but not performed or refused? (CT, X-rays, U/S, labs)? Why? @ -None What meds were considered but not given or refused? Why? @ -None Did you discuss the management of the patient with other professionals (professionals i.e. DrFer, PA, TELESALES MANAGER, lab, RT, psych nurse, public health social worker, six pack packer, teacher, second officer, casey saw operator)? Give summary @ -See above. Case also discussed with stroke neurologist who agrees with no normal lytics and no thrombectomy Was smoking cessation discussed for >3mins.? @ -No Was critical care preformed (if so, how long)? @ -Yes, 33 minutes Were there social determinants of health that impacted care today? How? (Homelessness, low income, unemployed, alcoholism, drug addiction, transportation, low edu. Level, literacy, decrease access to med. care, shelter, rehab)? @ -No Was there de-escalation of care discussed even if they declined (Discuss DNR or withdrawal of care, Hospice)? DNR status @ -No What co-morbidities impacted this encounter? (DM, HTN, Smoking, COPD, CAD, Cancer, CVA, ARF, Chemo, Hep., AIDS, mental health diagnosis, sleep apnea, morbid obesity)? @ -None Was patient admitted / discharged? Hospital course, mention meds given and route, prescriptions, significant lab abnormalities, going to OR and other pertinent info. @ -72-year-old male presents to the emergency department for strokelike symptoms. Patient given NIH score of 4 his right lower extremity. Patient has no other associated symptoms. Vital signs stable. Imaging studies are nonac [place]. Laboratory evaluation obtained. Troponin of 0.466. It is unclear what elevated troponin is from. Pending creatinine kinase level. Patient has right r dorsalis pedis pulse seen with ultrasound Doppler. Patient on aspirin will be admitted with consultation to neurology. Undiagnosed new problem with uncertain prognosis? @ -No Drug Therapy requiring intensive monitoring for toxicity (Heparin, Nitro, Insulin, Cardizem)? @ -No Were any procedures done? @ -No Diagnosis/symptom? Acute, or Chronic, or Acute on Chronic? Uncomplicated (without systemic symptoms) or Complicated (systemic symptoms)? @ -Focal neurologic deficit Side effects of treatment? @ -No Exacerbation, Progression, or Severe Exacerbation? @ -No Poses a threat to life or bodily function? How? (Chest pain, [place], NV, pneumonia, PE, COPD, DKA, ARF, appy, cholecystitis, CVA, Diverticulitis, Homicidal, Suicidal, threat to staff... and all critical care pts) @ -yes - Lab Data Result diagrams: 11/27/23 15:05 11/27/23 15:05 Lab Results 11/27/23 11/27/23 11/27/23 Range/Units 14:54 15:05 15:05 WBC 9.4 (3.8-10.6) k/uL RBC 4.34 (4.30-5.90) m/uL Hgb 12.2 L (13.0-17.5) gm/dL Hct 39.2 (39.0-53.0) % MCV 90.4 (80.0-100.0) fL MCH 28.2 (25.0-35.0) pg MCHC 31.2 (31.0-37.0) g/dL RDW 16.0 H (11.5-15.5) % Plt Count 232 (150-450) k/uL MPV 8.3 Neutrophils % 66 % Lymphocytes % 22 % Monocytes % 8 % Eosinophils % 1 % Basophils % 0 % Neutrophils # 6.3 (1.3-7.7) k/uL Lymphocytes # 2.1 (1.0-4.8) k/uL Monocytes # 0.8 (0-1.0) k/uL Eosinophils # 0.1 (0-0.7) k/uL Basophils # 0.0 (0-0.2) k/uL Hypochromasia Slight Anisocytosis Slight PT 9.7 L (10.0-12.5) sec INR 0.9 (<1.2) APTT 23.9 (22.0-30.0) sec Sodium (137-145) mmol/L Potassium (3.5-5.1) mmol/L Chloride (98-107) mmol/L Carbon Dioxide (22-30) mmol/L Anion Gap mmol/L BUN (9-20) mg/dL Creatinine (0.66-1.25) mg/dL Est GFR (CKD-EPI)AfAm (>60 ml/min/1.73 sqM) Est GFR (CKD-EPI)NonAf (>60 ml/min/1.73 sqM) Glucose (74-99) mg/dL POC Glucose (mg/dL) 108 (70-110) mg/dL POC Glu Fitting Room Attendant ID McNeice, Cha Calcium (8.4-10.2) mg/dL Total Bilirubin (0.2-1.3) mg/dL AST (17-59) U/L ALT (4-49) U/L Alkaline Phosphatase (38-126) U/L Creatine Kinase (55-170) U/L Troponin I (0.000-0.034) ng/mL Total Protein (6.3-8.2) g/dL Albumin (3.5-5.0) g/dL 11/27/23 11/27/23 Range/Units 15:05 15:05 WBC (3.8-10.6) k/uL RBC (4.30-5.90) m/uL Hgb (13.0-17.5) gm/dL Hct (39.0-53.0) % MCV (80.0-100.0) fL MCH (25.0-35.0) pg MCHC (31.0-37.0) g/dL RDW (11.5-15.5) % Plt Count (150-450) k/uL MPV Neutrophils % % Lymphocytes % % Monocytes % % Eosinophils % % Basophils % % Neutrophils # (1.3-7.7) k/uL Lymphocytes # (1.0-4.8) k/uL Monocytes # (0-1.0) k/uL Eosinophils # (0-0.7) k/uL Basophils # (0-0.2) k/uL Hypochromasia Anisocytosis PT (10.0-12.5) sec INR (<1.2) APTT (22.0-30.0) sec Sodium 139 (137-145) mmol/L Potassium 4.6 (3.5-5.1) mmol/L Chloride 110 H (98-107) mmol/L Carbon Dioxide 19 L (22-30) mmol/L Anion Gap 10 mmol/L BUN 16 (9-20) mg/dL Creatinine 1.23 (0.66-1.25) mg/dL Est GFR (CKD-EPI)AfAm 68 (>60 ml/min/1.73 sqM) Est GFR (CKD-EPI)NonAf 59 (>60 ml/min/1.73 sqM) Glucose 99 (74-99) mg/dL POC Glucose (mg/dL) (70-110) mg/dL POC Glu Fitting Room Attendant ID Calcium 9.3 (8.4-10.2) mg/dL Total Bilirubin 0.6 (0.2-1.3) mg/dL AST 20 (17-59) U/L ALT 19 (4-49) U/L Alkaline Phosphatase 129 H (38-126) U/L Creatine Kinase 123 (55-170) U/L Troponin I 0.466 H* (0.000-0.034) ng/mL Total Protein 7.1 (6.3-8.2) g/dL Albumin 4.4 (3.5-5.0) g/dL Disposition Clinical Impression: CVA (cerebral vascular accident) Disposition: ADMITTED IP TO THIS HOSP Condition: Serious Referrals: Aaron Felix MD [Primary Care Provider] - 1-2 days Time of Disposition: 17:21
[2023-11-27 15:26] LABS: Anisocytosis Slight; Basophils % (A) 0 %; Eosinophils # (A) 0.1 k/uL (0-0.7); Eosinophils % (A) 1 %; HCT 39.2 % (39.0-53.0); HGB 12.2 gm/dL (13.0-17.5); Hypochromasia Slight; Lymphocytes # (A) 2.1 k/uL (1.0-4.8); Lymphocytes % (A) 22 %; MCH 28.2 pg (25.0-35.0); MCHC 31.2 g/dL (31.0-37.0); MCV 90.4 fL (80.0-100.0); Mean Platelet Volume 8.3; Monocytes # (A) 0.8 k/uL (0-1.0); Monocytes % (A) 8 %; Neutrophils # (A) 6.3 k/uL (1.3-7.7); Neutrophils % (A) 66 %; Platelet Count 232 k/uL (150-450); RBC 4.34 m/uL (4.30-5.90); WBC 9.4 k/uL (3.8-10.6)
--- NOTE | 2023-11-27 15:29 | CT ---
EXAMINATION TYPE: CT brain wo con DATE OF EXAM: 11/27/2023 COMPARISON: 04/17/2023 HISTORY: Neuro deficit, acute, stroke suspected CT DLP: 1244.6 mGycm Automated exposure control for dose reduction was used. Findings: The ventricles, basal cisterns and sulci over the convexities are within normal limits for the patien t's age and there is no mass effect or shift of midline structures. There are stable bilateral remote lacunar infarcts in the basal ganglia. There is stable mild to mode rate chronic ischemic white matter demyelination. There is a small remote white matter infarct in the right parietal region. There is no acute intra or extra-axial hemorrhage. The posterior fossa including the brainstem, fourth ventricle and cerebellar pontine angles appear no rmal. Intraorbital contents appear normal and symmetric. Visualized paranasal sinuses and mastoid air cells are well aerated. The calvarium is intact. IMPRESSION: 1. No acute bleed or mass effect. 2. Interval chronic ischemic changes as described above.
[2023-11-27 15:34] LABS: INR 0.9 (<1.2); Partial Thromboplastin Time 23.9 sec (22.0-30.0); Prothrombin Time 9.7 sec (10.0-12.5)
[2023-11-27 15:36] LABS: ALT 19 U/L (4-49); African American GFR (CKD) 68 (>60 ml/min/1.73 sqM); Albumin 4.4 g/dL (3.5-5.0); Anion Gap 10 mmol/L; Blood Urea Nitrogen 16 mg/dL (9-20); Calcium 9.3 mg/dL (8.4-10.2); Carbon Dioxide 19 mmol/L (22-30); Chloride 110 mmol/L (98-107); Creatine Kinase 123 U/L (55-170); Glucose 99 mg/dL (74-99); Non-African American GFR(CKD) 59 (>60 ml/min/1.73 sqM); Sodium 139 mmol/L (137-145); Total Bilirubin 0.6 mg/dL (0.2-1.3); Total Protein 7.1 g/dL (6.3-8.2)
--- NOTE | 2023-11-27 15:40 | CT ---
EXAMINATION TYPE: CT angio head neck DATE OF EXAM: 11/27/2023 HISTORY: Neuro deficit, acute, stroke suspected COMPARISON: 04/15/2023 CT DLP: 521.4 mGycm. Automated Exposure Control for Dose Reduction was Utilized. TECHNIQUE: CTA scan of the head and neck is performed with IV Contrast, patient injected with 65ml m L of Isovue 370, axial images are obtained, coronal and sagittal reformatted images are reviewed. 3D reconstructed images are created on an independent workstation and reviewed. FINDINGS: The brachiocephalic origins are widely patent and no significant stenosis. There is no significant stenosis of the common or internal carotid arteries within the neck. There is no stenosis of the vertebral arteries. Intracranially, there is no stenosis, segmental occlusion, sizable aneurysm sac or vascular malformat ion. IMPRESSION:. No significant abnormality seen. NASCET criteria was used in interpretation of this exam?
[2023-11-27 15:56] LABS: AST 20 U/L (17-59); Alkaline Phosphatase 129 U/L (38-126); Potassium 4.6 mmol/L (3.5-5.1)
--- NOTE | 2023-11-27 16:37 | XR ---
EXAMINATION TYPE: XR chest 2V DATE OF EXAM: 11/27/2023 COMPARISON: 04/15/2023 HISTORY: Altered mental status TECHNIQUE: Frontal and lateral views of the chest are obtained. FINDINGS: The cardiac silhouette is prominent and there is mild pulmonary vascular congestion. There is focal p artially consolidative opacity in one of the lung bases, likely on the right which could represent a pneumonic infiltrate or pulmonary edema. There is no pleural effusion or pneumothorax. The osseous structures are intact IMPRESSION: Findings most likely indicate CHF although focal pneumonia not excluded as described abo ve. Clinical correlation short-term follow-up to resolution is recommended.
[2023-11-27] MEDS: ASPIRIN 81 MG PO STA (18:59)
[2023-11-27] MEDS: ATORVASTATIN 80 MG TAB PO SCH (23:26)
[2023-11-27] MEDS: oxyCODONE-APAP 10-325MG 1 EACH TAB PO SCH (23:26)
[2023-11-27] MEDS: MONTELUKAST 10 MG TAB PO SCH (23:26)
[2023-11-27] MEDS: traZODone HCL 100 MG TAB PO SCH (23:27)
[2023-11-27] MEDS: DONEPEZIL 10 MG TAB PO SCH (23:27)
[2023-11-27] MEDS: CYCLOBENZAPRINE 10 MG TAB PO SCH (23:27)
[2023-11-28] MEDS: PANTOPRAZOLE 40 MG TABLET PO SCH (08:30)
[2023-11-28] MEDS: FLUTICASONE NASAL 50MCG/SPRAY 16GM BTL EA NOSTRIL SCH (08:30)
[2023-11-28] MEDS: RIVAROXABAN 10 MG TAB PO SCH (08:30)
[2023-11-28] MEDS: METOPROLOL SUCCINATE (ER) 25 MG TAB.ER.24H PO SCH (08:30)
[2023-11-28] MEDS: LACOSAMIDE 50 MG TABLET PO SCH (08:32)
[2023-11-28] MEDS: ISOSORBIDE MONONITRATE ER 30 MG TAB.ER.24H PO SCH (08:32)
[2023-11-28] MEDS ORDERED: SUMAtriptan succinate 50 MG TAB PO PRN (09:00)
[2023-11-28 13:26] LABS: Chol/HDL Ratio 2.74 Ratio; LDL Cholesterol,Calculated 49.6 mg/dL (0.0-131.0)
--- NOTE | 2023-11-28 14:05 | P.CNNES ---
History of Present Illness Consult date: 11/28/23 Requesting physician: Will Cotto Reason for Consult: Code stroke History of Present Illness: Patient is a 72-year-old right-handed male came to the hospital by ambulance yesterday at 2:38 PM for strokelike symptoms. Patient has not very clear about his symptoms yesterday therefore I had to review on the EMS flowsheet. Patient states that he was getting out of his truck, when he fell due to his right leg went underneath him. He did not hurt himself. He states he knows how to fall right. He was unable to get up on his feet. He crawled to the recliner and was able to climb on the recliner. He called the ambulance. He crawled outside and sat on the porch. He states that while he was in the ER, his left leg also became weak, and he could not walk. He states that she is feeling better, but not back to baseline. As per EMS flowsheet, when they arrived patient was sitting outside his porch steps appearing in no distress. Patient reports lower right sided weakness and difficulty forming words. The patient reports weakness and speech abnormalities beginning at about 10 AM in the morni, when he reported that his legs gave out causing him to fall onto the floor in his home and render him unable to get himself onto his feet. Patient denied hitting his head or neck during this fall. There was no reported neck pain at that time. Patient reported that he is using blood thinners due to his past stroke that occurred in March 2023 which left the patient with a deficit of generalized weakness. Patient denies any trauma prior to the onset of his symptoms this morning. His pupils were equal, but pinpoint. He reports taking oxycodone around 12 PM for headache. Patient also reporting dizziness. Patient denies any chest pain shortness of breath nausea vomiting abdominal pain or incontinence. Patient was loaded into the ambulance. Once inside the ambulance patient was placed on the media monitor. Patient showed increasingly slurred speech and difficulty enunciating words. He now reports numbness and tingling of his right leg and right arm. There was no facial droop. Patient then began to demonstrate seizure-like activity. Patient was unresponsive to verbal and painful stimuli with his heart rate increasing and his saturation dropping and clonic (shaking and jerking) activity noted that lasted approximately 20 to 30 seconds. Versed 5 mg IV for she was recommended by ED staff, but patient regained consciousness within a minute and was able to answer all questions during post seizure activity. Versed was not given. Patient's vitals at the scene was blood pressure 153/92 pulse at 100 saturation 95% blood sugar 107 and temperature 97.4. Vital signs on arrival blood pressure 161/99 pulse rate 86 temperature 97.0. Blood test shows normal WBC, hemoglobin 12.2, platelets are normal PT PTT normal, CHEM 20 is normal, troponin mildly elevated 0.466. CT head revealed no acute bleed or mass effect. Interval chronic ischemic changes involving bilateral basal ganglia with lacunar infarcts. There is a small remote white matter infarct in the right parietal region. I personally reviewed CT head, and it appears there is evidence of old liquids involving bilateral caudate nucleus, as well as right anterior limb of internal capsule. EKG shows sinus rhythm, chest x-ray with findings most likely indicate CHF although focal pneumonia not excluded as described above. Clinical correlation, short-term follow-up to resolution is recommended. Patient has been seen by neurology service multiple times in the past, and I saw him as a follow-up on 04/20/2023 for recent stroke over the right thalamus and left temporal/occipital region status post IV tPA on 03/27/2023 who presented at that time with seizure-like activity. It was not sure if patient has epileptic or nonepileptic seizures. Patient takes Xarelto 10 mg daily, and Vimpat 100 mg twice daily. Patient states he takes his medication regularly. Patient mentions that he has history of seizure disorder for 5 years and the last seizure was about 1 year ago. He gets seizure about once every 6 months. He is not sure if this current episode was a seizure, although he is aware that he may had some seizure-like activity in the ambulance. Patient also mentions that his right leg is worse than baseline since yesterday. He has been dragging his right leg since his stroke in March 2023 but is worse now. Patient mentioned that he has history of stroke in March 2023, had 2 strokes at the same time pointing to the right occipital and left frontal region. He had pr oblem with speech, walking, talking and affected his right side. He still has problem with the right leg. He states he is fully compliant with the medication does not miss the dose. Patient does smoke 1 pack/day since age 11. He has hypertension and hyperlipidemia denies diabetes. Review of Systems Constitutional: Denies chills, Denies fever Eyes: right loss of peripheral vision (Small area called "floater"), denies blurred vision, denies diplopia, denies pain Ears: bilateral: decreased hearing, deny: ear discharge Ears, nose, mouth and throat: Denies headache, Denies sore throat, Denies vertigo Cardiovascular: Reports lightheadedness, Denies chest pain, Denies shortness of breath Respiratory: Reports cough, Reports excessive sputum Gastrointestinal: Denies abdominal pain, Denies diarrhea, Denies nausea, Denies vomiting Genitourinary: Denies incontinence, Denies urinary frequency Musculoskeletal: Reports low back pain, Reports neck pain Integumentary: Denies pruritus, Denies rash Neurological: Reports as per HPI Psychiatric: Reports anxiety, Denies depression Hematologic/Lymphatic: Reports easy bleeding, Reports easy bruising Past Medical History Past Medical History: Coronary Artery Disease (CAD), CVA/TIA, GERD/Reflux, Hyperlipidemia, Hypertension, Liver Disease, Myocardial Infarction ([place]), Vas cular Disorder Additional Past Medical History / Comment(s): Patient states he was admitted to the hospital January after a fall with head injury/new onset seizures and was hospi talized at [facility] in [place]. He was on life support and was extubated and had one more seizure. 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 Patient states he has Hepatitis C. Last Myocardial Infarction Date:: 2011 History of Any Multi-Drug Resistant Organisms: None Reported Past Surgical History: Heart Catheterization With Stent, Orthopedic Surgery Additional Past Surgical History / Comment(s): PCI with a total of 7 stents per pt, L caratid endartectomy, L shoulder surgery for injury, R knee/R hip/R elbow/R wrist ligament/tendon type surgeries injuries-has pins in hand, colonoscopy. Past Anesthesia/Blood Transfusion Reactions: No Reported Reaction Date of Last Stent Placement:: 2011 Past Psychological History: Anxiety Additional Psychological History / Comment(s): Pt resides alone. He was to start with home care services, Smoking Status: Current every day smoker Past Alcohol Use History: Rare Additional Past Alcohol Use History / Comment(s): Pt started smoking in 1961-2 ppd. Past Drug Use History: Marijuana Additional Drug Use History / Comment(s): Patient smokes marijuana at times. Pt states history of ETOH abuse 10yrs ago. - Past Family History Father Family Medical History: CVA/TIA Additional Family Medical History / Comment(s): Father is from CVA. Pt states father from "stupidity." Mother Family Medical History: Diabetes Mellitus Additional Family Medical History / Comment(s): Mother from diabetes at the age of 52 yrs. Brother(s) Family Medical History: Diabetes Mellitus Additional Family Medical History / Comment(s): Brother at the age of 32 yrs from type 1 diabetes. Medications and Allergies Home Medications Medication Instructions Recorded Confirmed Type Isosorbide Mononitrate ER [Imdur] 30 mg PO DAILY 09/07/17 11/27/23 History Donepezil [Aricept] 10 mg PO HS 04/11/19 11/27/23 History Cyclobenzaprine [Flexeril] 10 mg PO HS 03/22/23 11/27/23 History Pantoprazole Sodium [Protonix] 20 mg PO BID 03/22/23 11/27/23 History oxyCODONE-APAP 10-325MG [Percocet 1 tab PO QID 03/22/23 11/27/23 History 10-325 mg] Atorvastatin [Lipitor] 80 mg PO HS #30 tab 04/06/23 11/27/23 Rx Lacosamide [Vimpat] 100 mg PO BID #60 tab 04/21/23 11/27/23 Rx Rivaroxaban [Xarelto] 10 mg PO DAILY #30 tab 04/21/23 11/27/23 Rx FLUoxetine HCL [PROzac] 60 mg PO W/LUNCH 11/27/23 11/27/23 History Fluticasone Nasal [place] [Flonase 1 spray EA NOSTRIL DAILY 11/27/23 11/27/23 History Nasal [place]] LORazepam [Ativan] 1 mg PO TID PRN 11/27/23 11/27/23 History Metoprolol Succinate (ER) [Toprol 25 mg PO DAILY 11/27/23 11/27/23 History Xl] Montelukast [Singulair] 10 mg PO HS 11/27/23 11/27/23 History SUMAtriptan succinate 50 mg PO DAILY PRN 11/27/23 11/27/23 History traZODone HCL [Trazodone HCl] 100 mg PO HS 11/27/23 11/27/23 History Allergies Allergy/AdvReac Type Severity Reaction Status Date / Time alprazolam [From Xanax] Allergy Rash/Hives Verified 11/27/23 17:07 codeine Allergy Rash/Hives Verified 11/27/23 17:07 nicotine [From Nicoderm CQ] AdvReac Hallucinati Verified 11/27/23 17:07 ons zolpidem [From Ambien] AdvReac "salty" Verified 11/27/23 17:07 taste in mouth, numb mouth Physical Examination - Vital Signs Vital Signs: Vital Signs Temp Pulse Pulse Resp BP BP Pulse Ox 11/28/23 11:47 98.1 F 85 18 117/61 96 11/28/23 08:00 98.0 F 92 18 158/92 97 11/28/23 04:00 97.9 F 89 19 139/87 95 11/28/23 00:00 97.8 F 79 19 148/81 99 11/27/23 20:58 97.9 F 89 19 163/89 97 11/27/23 20:00 98.1 F 89 19 163/89 97 11/27/23 19:26 80 18 145/90 97 11/27/23 18:35 97.8 F 94 16 148/89 96 11/27/23 17:00 96 14 154/89 97 11/27/23 16:30 79 14 136/83 96 11/27/23 16:00 77 14 130/81 97 11/27/23 15:30 83 16 127/80 97 11/27/23 15:10 90 20 169/94 97 11/27/23 15:00 85 22 147/90 98 11/27/23 14:50 88 9 L 154/94 96 11/27/23 14:43 97.0 F L 86 16 161/99 96 Intake and Output 11/27/23 11/28/23 11/28/23 22:59 06:59 14:59 Intake Total 240 Output Total 475 350 Balance -475 -110 Intake: Oral 240 Output: Urine 475 350 Other: Voiding Method Urinal Urinal Urinal Weight 83.915 kg 83.4 kg Patient is an elderly male, very pleasant, in no acute distress. Patient is alert awake oriented to time place and person. Patient states it is 11/29/2023 and that he is in [place] in [place] in [facility]. Speech and language functions are normal. Patient can name and repeat very well. No aphasia or dysarthria. Attention, concentration and fund of knowledge is adequate. On cranial nerve examination, pupils are very small, but equal, round and reacting to light, visual stevens are full on confrontation, with no neglect on d ouble simultaneous stimulation. Extraocular muscles are intact with no nystagmus. Patient has slight flattening of the right nasolabial fold. His tongue protrudes to the midline. Palatal elevation and sensation normal, hearing is moderately decreased and shoulder shrug normal, facial sensation n ormal. On muscle strength testing, there is mild pronator drift about 20 to 25 degree and the strength is (right/left) deltoid 5/5, biceps 4/5, triceps 5-/5, support specialist 4/5, hip flexion 4 4-/5, ankle dorsiflexion 5/5, toe extension 5/5. Deep tendon reflexes are symmetric 1 at the biceps, 1 brachioradialis, 2+3 at the right knee, 2+ left. Ankles are 1 and plantars are downgoing bilaterally. Sensory to touch is equal with no neglect on double simultaneous stimulation. Cerebellar function showed no ataxia for [id number] testing. No dysdiadochokinesia. No ataxia for [id number] testing on either side. Tone and bulk of muscles normal. Gait: Patient walks with small shuffling gait, with somewhat magnetic gait. He did not use any assistive device. On general examination, there is no carotid bruit or murmur, S1-S2 audible. Chest is clear on consultation. Abdomen is soft nontender. No organomegaly, bowel sounds present. Patient has some bruises on his leg. Peripheral pulses are present. No peripheral edema. Results - Laboratory Findings CBC and BMP: 11/27/23 15:05 11/27/23 15:05 Abnormal Lab Findings: Abnormal Labs 11/27/23 11/27/23 11/27/23 15:05 15:05 15:05 Hgb 12.2 L RDW 16.0 H PT 9.7 L Chloride 110 H Carbon Dioxide 19 L Alkaline Phosphatase 129 H Troponin I 11/27/23 15:05 Hgb RDW PT Chloride Carbon Dioxide Alkaline Phosphatase Troponin I 0.466 H* Assessment and Plan Assessment: * Acute episode of right leg weakness, with some speech difficulty noted in the ambulance. Rule out stroke/TIA. Patient had a seizure-like activity also witnessed by EMS in the ambulance. Current examination reveals mild right sided weakness, uncertain new or old. Rule out acute CVA. * History of acute CVA 03/30/2023 involving right thalamus and left parieto-occipital region, with residual right-leg weakness. Patient states he drags right leg with walking. * History of right CEA in March 2023 * Reported history of left CEA 6 years ago * History of multiple TIA * Coronary artery disease, with multiple cardiac stents history * Hypertension * Hyperlipidemia * History of DVT, on Xarelto * Tobacco use Plan: * MRI of the brain evaluate for any acute stroke * CTA of head and neck revealed no significant stenosis. Patient has history of bilateral CEA. * Continue Xarelto 10 mg daily. Uncertain as to the reason of being on Xarelto. * Lipid panel with cholesterol monitoring, LDL 49, HDL 48, triglycerides 101. Continue Lipitor 80 mg daily (home medication) * Patient had [place] on 03/31/2023, which revealed normal left ventricular size and systolic function, normal appearance of the left atrial appendage, no shunting across the interatrial septum. Mild MR and TR. * Hemoglobin A1c. Last A1c 6.1 on 03/28/2023. * Blood pressure is well-controlled. * Patient has abnormal gait. We will check B12, folate, TSH. * EEG rule out any epileptiform activity * Patient currently on Vimpat 100 mg twice daily which will be continued. * Recommend complete tobacco cessation. * Neurology will follow clinically. Thank you for the consult. Time with Patient: Greater than 30
[2023-11-28] MEDS: FLUoxetine HCL 20 MG CAP PO SCH (14:17)
--- NOTE | 2023-11-28 15:28 | P.HPIM ---
History of Present Illness H&P Date: 11/28/23 Chief Complaint: Numbness weakness both the legs below the knee This is a 72-year-old patient who follows with Dr. Felix. History of cardiac arrest. Tonic-clonic seizure. medical conditions include coronary artery disease with stent, GERD, hyperlipidemia, essential hypertension primary osteoarthritis. History of head injury. Hepatitis C. Arthritis. Patient has chronic right-sided weakness from prior stroke. Does use a cane. Also decrease nasolabial fold on the right side of the face. March 2023 right carotid endarterectomy. [place] following stroke in February 2023 that is unremarkable. Patient yesterday noticed both the legs below the knee having no feeling. Likely losing control. He had to crawl. Decided to come to the ER. No other weakness present no change in speech headache vision change. CT brain in the ER unremarkable. Overnight symptoms are resolved. Back to his baseline. Reportedly patient had a seizure-like activity witnessed by the EMS in the ambulance. Review of systems: GEN.: None EYES: None HEENT: None NECK: None RESPIRATORY: None CARDIOVASCULAR: None GASTROINTESTINAL: None GENITOURINARY: None MUSCULOSKELETAL: Pain in the joints LYMPHATICS: None HEMATOLOGICAL: None PSYCHIATRY: None NEUROLOGICAL: Chronic right-sided weakness and weakness right side of the face Past medical history to include: Concussion, possible tonic-clonic seizure, coronary artery disease with stent, GERD, hyperlipidemia, essential hypertension, primary osteoarthritis, nicotine dependence.. Stroke March 2023-with residual right-sided weakness and weakness right side of the face Social history: Lives alone. Smokes a pack a day-several years. Physical examination: VITAL SIGNS: 98, 92, 18, 158/92, 97% room air GENERAL: The edge of the bed, comfortable EYES: Pupils equal. Conjunctiva normal. HEENT: External appearance of nose and ears normal, oral cavity grossly normal. NECK: JVD not raised; masses not palpable. HEART: First and second heart sounds are normal; no edema. Decreased dorsalis pedis. LUNGS: Respiratory rate normal; decreased breath sounds. ABDOMEN: Soft, nontender, liver spleen not palpable, no masses palpable. PSYCH: X 3, mood affect normal NEUROLOGICAL: Cranial nerves grossly intact. Moving all 4 limbs. Power on the right side 4/5. Flattening of right nasolabial fold. MUSCULAR skeletal: Evidence of OA. LYMPHATICS: No lymph nodes palpable in the axilla and neck INVESTIGATIONS, reviewed in the clinical context: November 26: White count 9.4 hemoglobin 12.2 platelets 232 sodium 139 potassium 4.6 creatinine 1.23 Troponin I 0.0466 LDL 49.6 EKG tracing personally reviewed by me-normal sinus rhythm. Chest x-ray film personally reviewed by me-cardiomegaly. Some opacity on the right side. CT angiogram head and neck: Unremarkable CT brain without contrast: Nothing acute reported March 2023 Brain MRI with and without contrast: Chronic changes EEG: Mild encephalopathy. No epileptiform discharge. Computed tomography scan brain without contrast: Remote lacunar infarct in the lateral basal ganglia which is stable.. February 2023 [place]: Bubble study was negative for any shunting. No embolic source was detected. Carotid Doppler: 50-69% reduction suggested bilaterally. MRI brain without contrast: Acute/subacute CVA involving the right thalamus and the left parietal occipital region. Some nonspecific) changes. Assessment and plan: -Patient presents with bilateral numbness and weakness of both the legs below the knee to the foot. Overnight the symptoms are resolved. [Patient has chronic weakness in the right side.-Patient states this is his baseline.]: Possible TIA Neurology consulted. MRI brain -t tonic-clonic seizures. History of strokes epilepsy: Patient reported to have possible 1 episode in the EMS Seizure precautions. Vimpat 100 mg twice a day. Neurology Dr. Nicolas consulted Outpatient: Neurologist Dr. Bryan -Prior history of aggressive behavior likely could be manifestation of temporal lobe seizure.: -History: Subacute stroke March 2023 Involving the right thalamus and the left parietal/occipital region. Status post TPA. Aspirin. Brillinta [place] : Negative for shunting or embolic source. Follow-up with Dr. Flaherty -Right endarterectomy patch done by Dr. Agustina Romero April 03. -Coronary artery disease with stent Aspirin. -GERD PPI -Hyperlipidemia Lipitor 80 mg daily at bedtime. -Essential hypertension Lisinopril 2.5 mg daily at bedtime -Primary osteoarthritis Percocet when necessary Home medications resumed. Patient is on Xarelto. Reason unclear. Add baby aspirin. MRI ordered. Follow-up with neurology. Past Medical History Past Medical History: Coronary Artery Disease (CAD), CVA/TIA, GERD/Reflux, Hyperlipidemia, Hypertension, Liver Disease, Myocardial Infarction (AL), Vascular Disorder Additional Past Medical History / Comment(s): Patient states he was admitted to the hospital January after a fall with head injury/new onset seizures and was hospitalized at [facility]. He was on life support and was extubated and had one more seizure. 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 Patient states he has Hepatitis C. Last Myocardial Infarction Date:: 2011 History of Any Multi-Drug Resistant Organisms: None Reported Past Surgical History: Heart Catheterization With Stent, Orthopedic Surgery Additional Past Surgical History / Comment(s): PCI with a total of 7 stents per pt, L caratid endartectomy, L shoulder surgery for injury, R knee/R hip/R elbow/R wrist ligament/tendon type surgeries injuries-has pins in hand, colonoscopy. Past Anesthesia/Blood Transfusion Reactions: No Reported Reaction Date of Last Stent Placement:: 2011 Past Psychological History: Anxiety Additional Psychological History / Comment(s): Pt resides alone. He was to start with home care services, Smoking Status: Current every day smoker Past Alcohol Use History: None Reported Additional Past Alcohol Use History / Comment(s): Pt started smoking in 1961-2 ppd. Past Drug Use History: Marijuana Additional Drug Use History / Comment(s): Patient smokes marijuana at times. Pt states history of ETOH abuse 10yrs ago. Past Medical History Past Medical History: Coronary Artery Disease (CAD), CVA/TIA, GERD/Reflux, Hyperlipidemia, Hypertension, Liver Disease, Myocardial Infarction (AL), Vascular Disorder Additional Past Medical History / Comment(s): Patient states he was admitted to the hospital January after a fall with head injury/new onset seizures and was hospitalized at [facility]. He was on life support and was extubated and had one more seizure. 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 Patient states he has Hepatitis C. Last Myocardial Infarction Date:: 2011 History of Any Multi-Drug Resistant Organisms: None Reported Past Surgical History: Heart Catheterization With Stent, Orthopedic Surgery Additional Past Surgical History / Comment(s): PCI with a total of 7 stents per pt, L caratid endartectomy, L shoulder surgery for injury, R knee/R hip/R elbow/R wrist ligament/tendon type surgeries injuries-has pins in hand, colonoscopy. Past Anesthesia/Blood Transfusion Reactions: No Reported Reaction Date of Last Stent Placement:: 2011 Past Psychological History: Anxiety Additional Psychological History / Comment(s): Pt resides alone. He was to start with home care services, Smoking Status: Current every day smoker Past Alcohol Use History: Rare Additional Past Alcohol Use History / Comment(s): Pt started smoking in 1962-2 ppd. Past Drug Use History: Marijuana Additional Drug Use History / Comment(s): Patient smokes marijuana at times. Pt states history of ETOH abuse 10yrs ago. - Past Family History Father Family Medical History: CVA/TIA Additional Family Medical History / Comment(s): Father is from CVA. Pt states father from "stupidity." Mother Family Medical History: Diabetes Mellitus Additional Family Medical History / Comment(s): Mother from diabetes at the age of 52 yrs. Brother(s) Family Medical History: Diabetes Mellitus Additional Family Medical History / Comment(s): Brother at the age of 32 yrs from type 1 diabetes. Medications and Allergies Home Medications Medication Instructions Recorded Confirmed Type Isosorbide Mononitrate ER [Imdur] 30 mg PO DAILY 09/07/17 11/27/23 History Donepezil [Aricept] 10 mg PO HS 04/11/19 11/27/23 History Cyclobenzaprine [Flexeril] 10 mg PO HS 03/22/23 11/27/23 History Pantoprazole Sodium [Protonix] 20 mg PO BID 03/22/23 11/27/23 History oxyCODONE-APAP 10-325MG [Percocet 1 tab PO QID 03/22/23 11/27/23 History 10-325 mg] Atorvastatin [Lipitor] 80 mg PO HS #30 tab 04/06/23 11/27/23 Rx Lacosamide [Vimpat] 100 mg PO BID #60 tab 04/21/23 11/27/23 Rx Rivaroxaban [Xarelto] 10 mg PO DAILY #30 tab 04/21/23 11/27/23 Rx FLUoxetine HCL [PROzac] 60 mg PO W/LUNCH 11/27/23 11/27/23 History Fluticasone Nasal [place] [Flonase 1 spray EA NOSTRIL DAILY 11/27/23 11/27/23 History Nasal [place]] LORazepam [Ativan] 1 mg PO TID PRN 11/27/23 11/27/23 History Metoprolol Succinate (ER) [Toprol 25 mg PO DAILY 11/27/23 11/27/23 History Xl] Montelukast [Singulair] 10 mg PO HS 11/27/23 11/27/23 History SUMAtriptan succinate 50 mg PO DAILY PRN 11/27/23 11/27/23 History traZODone HCL [Trazodone HCl] 100 mg PO HS 11/27/23 11/27/23 History Allergies Allergy/AdvReac Type Severity Reaction Status Date / Time alprazolam [From Xanax] Allergy Rash/Hives Verified 11/27/23 17:07 codeine Allergy Rash/Hives Verified 11/27/23 17:07 nicotine [From Nicoderm CQ] AdvReac Hallucinati Verified 11/27/23 17:07 ons zolpidem [From Ambien] AdvReac "salty" Verified 11/27/23 17:07 taste in mouth, numb mouth Physical Exam Vitals: Vital Signs Temp Pulse Pulse Resp BP BP Pulse Ox 11/28/23 08:00 98.0 F 92 18 158/92 97 11/28/23 04:00 97.9 F 89 19 139/87 95 11/28/23 00:00 97.8 F 79 19 148/81 99 11/27/23 20:58 97.9 F 89 19 163/89 97 11/27/23 20:00 98.1 F 89 19 163/89 97 11/27/23 19:26 80 18 145/90 97 11/27/23 18:35 97.8 F 94 16 148/89 96 11/27/23 17:00 96 14 154/89 97 11/27/23 16:30 79 14 136/83 96 11/27/23 16:00 77 14 130/81 97 11/27/23 15:30 83 16 127/80 97 11/27/23 15:10 90 20 169/94 97 11/27/23 15:00 85 22 147/90 98 11/27/23 14:50 88 9 L 154/94 96 11/27/23 14:43 97.0 F L 86 16 161/99 96 Intake and Output 11/27/23 11/28/23 11/28/23 22:59 06:59 14:59 Intake Total 240 Output Total 475 Balance -475 240 Intake: Oral 240 Output: Urine 475 Other: Voiding Method Urinal Urinal Urinal Weight 83.915 kg 83.4 kg Results CBC & Chem 7: 11/27/23 15:05 11/27/23 15:05 Labs: Abnormal Lab Results - Last 24 Hours (Table) 11/27/23 11/27/23 11/27/23 Range/Units 15:05 15:05 15:05 Hgb 12.2 L (13.0-17.5) gm/dL RDW 16.0 H (11.5-15.5) % PT 9.7 L (10.0-12.5) sec Chloride 110 H (98-107) mmol/L Carbon Dioxide 19 L (22-30) mmol/L Alkaline Phosphatase 129 H (38-126) U/L Troponin I (0.000-0.034) ng/mL 11/27/23 Range/Units 15:05 Hgb (13.0-17.5) gm/dL RDW (11.5-15.5) % PT (10.0-12.5) sec Chloride (98-107) mmol/L Carbon Dioxide (22-30) mmol/L Alkaline Phosphatase (38-126) U/L Troponin I 0.466 H* (0.000-0.034) ng/mL Thrombosis Risk Factor Assmnt - Choose All That Apply Any of the Below Risk Factors Present?: Yes Each Factor Represents 1 point: Obesity (BMI >25) Each Risk Factor Represents 2 Points: Age 61-74 years Thrombosis Risk Factor Assessment Total Risk Factor Score: 3 Thrombosis Risk Factor Assessment Level: Moderate Risk
[2023-11-28] MEDS: ASPIRIN 81 MG PO SCH (17:25)
--- NOTE | 2023-11-29 15:18 | P.PN ---
Progress Note - Text Progress Note Date: 11/29/23 Chief Complaint: Numbness weakness both the legs below the knee This is a 72-year-old patient who follows with Dr. Felix. History of cardiac arrest. Tonic-clonic seizure. medical conditions include coronary artery disease with stent, GERD, hyperlipidemia, essential hypertension primary osteoarthritis. History of head injury. Hepatitis C. Arthritis. Patient has chronic right-sided weakness from prior stroke. Does use a cane. Also decrease nasolabial fold on the right side of the face. March 2023 right carotid endarterectomy. [place] following stroke in February 2023 that is unremarkable. Patient yesterday noticed both the legs below the knee having no feeling. Likely losing control. He had to crawl. Decided to come to the ER. No other weakness present no change in speech headache vision change. CT brain in the ER unremarkable. Overnight symptoms are resolved. Back to his baseline. Reportedly patient had a seizure-like activity witnessed by the EMS in the ambulance. November 29, 2023: Resting in bed. Comfortable. Neurological symptoms back to baseline. Pending MRI. Discussed with Dr. Saldaña. Eating well. Patient felt that he was given Xarelto for possible abnormal rhythm to prevent strokes at [facility] last year Active Medications Aspirin (Aspirin 81 Mg) 81 mg PO DAILY [facility] Last Admin: 11/29/23 08:13 Dose: 81 mg Atorvastatin Calcium (Atorvastatin 80 Mg Tab) 80 mg PO [facility] Last Admin: 11/28/23 19:52 Dose: 80 mg Cyclobenzaprine HCl (Cyclobenzaprine 10 Mg Tab) 10 mg PO [facility] Last Admin: 11/28/23 19:52 Dose: 10 mg Donepezil HCl (Donepezil 10 Mg Tab) 10 mg PO [facility] Last Admin: 11/28/23 19:52 Dose: 10 mg Fluoxetine HCl (Fluoxetine Hcl 20 Mg Cap) 60 mg PO W/LUNCH [facility] Last Admin: 11/29/23 13:09 Dose: 60 mg Fluticasone Propionate (Fluticasone 50mcg/Velarde Nasal 16gm) 1 spray EA NOSTRIL DAILY [facility] Last Admin: 11/29/23 08:14 Dose: 1 spray Isosorbide Mononitrate (Isosorbide Mononitrate Er 30 Mg Tab.Er.24h) 30 mg PO DAILY [facility] Last Admin: 11/29/23 08:14 Dose: 30 mg Lacosamide (Lacosamide 50 Mg Tablet) 100 mg PO BID [facility] Last Admin: 11/29/23 08:14 Dose: 100 mg Lorazepam (Lorazepam 1 Mg Tab) 1 mg PO TID PRN PRN Reason: Anxiety Metoprolol Succinate (Metoprolol Succinate (Er) 25 Mg Tab.Er.24h) 25 mg PO DAILY [facility] Last Admin: 11/29/23 08:14 Dose: 25 mg Montelukast Sodium (Montelukast 10 Mg Tab) 10 mg PO [facility] Last Admin: 11/28/23 19:52 Dose: 10 mg Oxycodone/Acetaminophen (Oxycodone-Apap 10-325mg 1 Each Tab) 1 each PO QID [facility] Last Admin: 11/29/23 13:09 Dose: 1 each Pantoprazole Sodium (Pantoprazole 40 Mg Tablet) 40 mg PO DAILY [facility] Last Admin: 11/29/23 08:14 Dose: 40 mg Rivaroxaban (Rivaroxaban 10 Mg Tab) 10 mg PO DAILY [facility]; Protocol Last Admin: 11/29/23 08:14 Dose: 10 mg Trazodone HCl (Trazodone Hcl 100 Mg Tab) 100 mg PO [facility] Last Admin: 11/28/23 19:52 Dose: 100 mg Past medical history to include: Concussion, possible tonic-clonic seizure, coronary artery disease with stent, GERD, hyperlipidemia, essential hypertension, primary osteoarthritis, nicotine dependence.. Stroke March 2023-with residual right-sided weakness and weakness right side of the face Social history: Lives alone. Smokes a pack a day-several years. Physical examination: VITAL SIGNS: 98.3, 73, 18, 152/82, 97% room air GENERAL: Laying in bed, comfortable EYES: Pupils equal. Conjunctiva normal. HEENT: External appearance of nose and ears normal, oral cavity grossly normal. NECK: JVD not raised; masses not palpable. HEART: First and second heart sounds are normal; no edema. Decreased dorsalis pedis. LUNGS: Respiratory rate normal; decreased breath sounds. ABDOMEN: Soft, nontender, liver spleen not palpable, no masses palpable. PSYCH: X 3, mood affect normal NEUROLOGICAL: Cranial nerves grossly intact. Moving all 4 limbs. Power on the right side 4/5. Flattening of right nasolabial fold. MUSCULAR skeletal: Evidence of OA. INVESTIGATIONS, reviewed in the clinical context: B12 194 folate 3.2 November 26: White count 9.4 hemoglobin 12.2 platelets 232 sodium 139 potassium 4.6 creatinine 1.23 Troponin I 0.0466 LDL 49.6 EKG tracing personally reviewed by me-normal sinus rhythm. Chest x-ray film personally reviewed by me-cardiomegaly. Some opacity on the right side. CT angiogram head and neck: Unremarkable CT brain without contrast: Nothing acute reported March 2023 Brain MRI with and without contrast: Chronic changes EEG: Mild encephalopathy. No epileptiform discharge. Computed tomography scan brain without contrast: Remote lacunar infarct in the lateral basal ganglia which is stable.. February 2023 [place]: Bubble study was negative for any shunting. No embolic source was detected. Carotid Doppler: 50-69% reduction suggested bilaterally. MRI brain without contrast: Acute/subacute CVA involving the right thalamus and the left parietal occipital region. Some nonspecific) changes. Assessment and plan: -Patient presents with bilateral numbness and weakness of both the legs below the knee to the foot. Overnight the symptoms are resolved. [Patient has chronic weakness in the right side.-Patient states this is his baseline.]: Possible TIA Neurology following. MRI brain-pending -t tonic-clonic seizures. History of strokes epilepsy: Patient reported to have possible 1 episode in the EMS Seizure precautions. EEG pending Vimpat 100 mg twice a day. Neurology following Outpatient: Neurologist Dr. Bryan -Prior history of aggressive behavior likely could be manifestation of temporal lobe seizure.: -History: Subacute stroke March 2023 Involving the right thalamus and the left parietal/occipital region. Status post TPA. Aspirin. Brillinta [place] : Negative for shunting or embolic source. Follow-up with Dr. Flaherty -Right endarterectomy patch done by Dr. Agustina Romero April 03. -Possible atrial fibrillation in 2022 at [facility] As per the patient. Xarelto -Coronary artery disease with stent Aspirin. -GERD PPI -Hyperlipidemia Lipitor 80 mg daily at bedtime. -Essential hypertension Lisinopril 2.5 mg daily at bedtime -Primary osteoarthritis Percocet when necessary Awaiting EEG and MRI brain. Continue current medication treatment plan. Past Medical History Past Medical History: Coronary Artery Disease (CAD), CVA/TIA, GERD/Reflux, Hyperlipidemia, Hypertension, Liver Disease, Myocardial Infarction ([place]), Vascular Disorder Additional Past Medical History / Comment(s): Patient states he was admitted to the hospital January after a fall with head injury/new onset seizures and was hospitalized at [facility] in [place]. He was on life support and was extubated and had one more seizure. 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 Patient states he has Hepatitis C. Last Myocardial Infarction Date:: 2011 History of Any Multi-Drug Resistant Organisms: None Reported Past Surgical History: Heart Catheterization With Stent, Orthopedic Surgery Additional Past Surgical History / Comment(s): PCI with a total of 7 stents per pt, L caratid endartectomy, L shoulder surgery for injury, R knee/R hip/R elbow/R wrist ligament/tendon type surgeries injuries-has pins in hand, colonoscopy. Past Anesthesia/Blood Transfusion Reactions: No Reported Reaction Date of Last Stent Placement:: 2011 Past Psychological History: Anxiety Additional Psychological History / Comment(s): Pt resides alone. He was to start with home care services, Smoking Status: Current every day smoker Past Alcohol Use History: None Reported Additional Past Alcohol Use History / Comment(s): Pt started smoking in 2-2 ppd. Past Drug Use History: Marijuana Additional Drug Use History / Comment(s): Patient smokes marijuana at times. Pt states history of ETOH abuse 10yrs ago.
[2023-11-29] MEDS: SENNOSIDES 8.6 MG TAB PO SCH (19:48)
--- NOTE | 2023-11-30 15:57 | P.PN ---
Progress Note - Text Progress Note Date: 11/30/23 Chief Complaint: Numbness weakness both the legs below the knee This is a 72-year-old patient who follows with Dr. Felix. History of cardiac arrest. Tonic-clonic seizure. medical conditions include coronary artery disease with stent, GERD, hyperlipidemia, essential hypertension primary osteoarthritis. History of head injury. Hepatitis C. Arthritis. Patient has chronic right-sided weakness from prior stroke. Does use a cane. Also decrease nasolabial fold on the right side of the face. March 2023 right carotid endarterectomy. [place] following stroke in February 2023 that is unremarkable. Patient yesterday noticed both the legs below the knee having no feeling. Likely losing control. He had to crawl. Decided to come to the ER. No other weakness present no change in speech headache vision change. CT brain in the ER unremarkable. Overnight symptoms are resolved. Back to his baseline. Reportedly patient had a seizure-like activity witnessed by the EMS in the ambulance. November 29, 2023: Resting in bed. Comfortable. Neurological symptoms back to baseline. Pending MRI. Discussed with Dr. Saldaña. Eating well. Patient felt that he was given Xarelto for possible abnormal rhythm to prevent strokes at [facility] last year November 30, 2023: Discussed with Dr. Saldaña from neurology. EEG negative. Pending MRI. Patient otherwise feels at his baseline. Eating well. B12 and folate deficiency. Supplement added. Active Medications Aspirin (Aspirin 81 Mg) 81 mg PO DAILY [facility] Last Admin: 11/30/23 09:25 Dose: 81 mg Atorvastatin Calcium (Atorvastatin 80 Mg Tab) 80 mg PO [facility] Last Admin: 11/29/23 19:48 Dose: 80 mg Cyanocobalamin (Cyanocobalamin 1,000 Mcg/Ml 1 Ml Vial) 1,000 mcg IM DAILY [facility] Cyclobenzaprine HCl (Cyclobenzaprine 10 Mg Tab) 10 mg PO [facility] Last Admin: 11/29/23 19:48 Dose: 10 mg Donepezil HCl (Donepezil 10 Mg Tab) 10 mg PO [facility] Last Admin: 11/29/23 19:48 Dose: 10 mg Fluoxetine HCl (Fluoxetine Hcl 20 Mg Cap) 60 mg PO W/LUNCH [facility] Last Admin: 11/30/23 12:28 Dose: 60 mg Fluticasone Propionate (Fluticasone 50mcg/[place] Nasal 16gm) 1 spray EA NOSTRIL DAILY [facility] Last Admin: 11/30/23 09:27 Dose: 1 spray Folic Acid (Folic Acid 1 Mg Tab) 1 mg PO DAILY [facility] Isosorbide Mononitrate (Isosorbide Mononitrate Er 30 Mg Tab.Er.24h) 30 mg PO DAILY [facility] Last Admin: 11/30/23 09:25 Dose: 30 mg Lacosamide (Lacosamide 50 Mg Tablet) 100 mg PO BID [facility] Last Admin: 11/30/23 09:24 Dose: 100 mg Lorazepam (Lorazepam 1 Mg Tab) 1 mg PO TID PRN PRN Reason: Anxiety Metoprolol Succinate (Metoprolol Succinate (Er) 25 Mg Tab.Er.24h) 25 mg PO DAILY [facility] Last Admin: 11/30/23 09:24 Dose: 25 mg Montelukast Sodium (Montelukast 10 Mg Tab) 10 mg PO [facility] Last Admin: 11/29/23 19:48 Dose: 10 mg Oxycodone/Acetaminophen (Oxycodone-Apap 10-325mg 1 Each Tab) 1 each PO QID [facility] Last Admin: 11/30/23 12:28 Dose: 1 each Pantoprazole Sodium (Pantoprazole 40 Mg Tablet) 40 mg PO DAILY [facility] Last Admin: 11/30/23 09:24 Dose: 40 mg Rivaroxaban (Rivaroxaban 10 Mg Tab) 10 mg PO DAILY [facility]; Protocol Last Admin: 11/30/23 09:24 Dose: 10 mg Senna (Sennosides 8.6 Mg Tab) 8.6 mg PO BID [facility] Last Admin: 11/30/23 09:24 Dose: 8.6 mg Trazodone HCl (Trazodone Hcl 100 Mg Tab) 100 mg PO [facility] Last Admin: 11/29/23 19:48 Dose: 100 mg Past medical history to include: Concussion, possible tonic-clonic seizure, coronary artery disease with stent, GERD, hyperlipidemia, essential hypertension, primary osteoarthritis, nicotine dependence.. Stroke March 2023-with residual right-sided weakness and weakness right side of the face Social history: Lives alone. Smokes a pack a day-several years. Physical examination: VITAL SIGNS: 98.1, 73, 20, 126/72, 95% room air GENERAL: Laying in bed, comfortable EYES: Pupils equal. Conjunctiva normal. HEENT: External appearance of nose and ears normal, oral cavity grossly normal. NECK: JVD not raised; masses not palpable. HEART: First and second heart sounds are normal; no edema. Decreased dorsalis pedis. LUNGS: Respiratory rate normal; decreased breath sounds. ABDOMEN: Soft, nontender, liver spleen not palpable, no masses palpable. PSYCH: X 3, mood affect normal NEUROLOGICAL: Cranial nerves grossly intact. Moving all 4 limbs. Power on the right side 4/5. Flattening of right nasolabial fold. MUSCULAR skeletal: Evidence of OA. INVESTIGATIONS, reviewed in the clinical context: B12 194 folate 3.2 November 26: White count 9.4 hemoglobin 12.2 platelets 232 sodium 139 potassium 4.6 creatinine 1.23 Troponin I 0.0466 LDL 49.6 EKG tracing personally reviewed by me-normal sinus rhythm. Chest x-ray film personally reviewed by me-cardiomegaly. Some opacity on the right side. CT angiogram head and neck: Unremarkable CT brain without contrast: Nothing acute reported March 2023 Brain MRI with and without contrast: Chronic changes EEG: Mild encephalopathy. No epileptiform discharge. Computed tomography scan brain without contrast: Remote lacunar infarct in the lateral basal ganglia which is stable.. February 2023 [place]: Bubble study was negative for any shunting. No embolic source was detected. Carotid Doppler: 50-69% reduction suggested bilaterally. MRI brain without contrast: Acute/subacute CVA involving the right thalamus and the left parietal occipital region. Some nonspecific) changes. Assessment and plan: -Patient presents with bilateral numbness and weakness of both the legs below the knee to the foot. Overnight the symptoms are resolved. [Patient has chronic weakness in the right side.-Patient states this is his baseline.]: Possible TIA Neurology following. MRI brain-pending -t tonic-clonic seizures. History of strokes epilepsy: Patient reported to have possible 1 episode in the EMS Seizure precautions. EEG pending Vimpat 100 mg twice a day. Neurology following Outpatient: Neurologist Dr. Bryan -Prior history of aggressive behavior likely could be manifestation of temporal lobe seizure.: -History: Subacute stroke March 2023 Involving the right thalamus and the left parietal/occipital region. Status post TPA. Aspirin. Brillinta [place] : Negative for shunting or embolic source. Follow-up with Dr. Flaherty -Right endarterectomy patch done by Dr. Agustina Romero April 03. -Possible atrial fibrillation in 2022 at [facility] As per the patient. Xarelto -Vitamin B12 and folate deficiency B12 supplementation and folic acid added -Coronary artery disease with stent Aspirin. -GERD PPI -Hyperlipidemia Lipitor 80 mg daily at bedtime. -Essential hypertension Lisinopril 2.5 mg daily at bedtime -Primary osteoarthritis Percocet when necessary MRI, pending. B12 and folate added. Discussed with patient Past Medical History Past Medical History: Coronary Artery Disease (CAD), CVA/TIA, GERD/Reflux, Hyperlipidemia, Hypertension, Liver Disease, Myocardial Infarction ([place]), Vascular Disorder Additional Past Medical History / Comment(s): Patient states he was admitted to the hospital January after a fall with head injury/new onset seizures and was hospitalized at [facility] in [place]. He was on life support and was extubated and had one more seizure. 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 Patient states he has Hepatitis C. Last Myocardial Infarction Date:: 2011 History of Any Multi-Drug Resistant Organisms: None Reported Past Surgical History: Heart Catheterization With Stent, Orthopedic Surgery Additional Past Surgical History / Comment(s): PCI with a total of 7 stents per pt, L caratid endartectomy, L shoulder surgery for injury, R knee/R hip/R elbow/R wrist ligament/tendon type surgeries injuries-has pins in hand, colonoscopy. Past Anesthesia/Blood Transfusion Reactions: No Reported Reaction Date of Last Stent Placement:: 2011 Past Psychological History: Anxiety Additional Psychological History / Comment(s): Pt resides alone. He was to start with home care services, Smoking Status: Current every day smoker Past Alcohol Use History: None Reported Additional Past Alcohol Use History / Comment(s): Pt started smoking in 1961-2 ppd. Past Drug Use History: Marijuana Additional Drug Use History / Comment(s): Patient smokes marijuana at times. Pt states history of ETOH abuse 10yrs ago.
[2023-11-30] MEDS: FOLIC ACID 1 MG TAB PO SCH (17:22)
[2023-11-30] MEDS: CYANOCOBALAMIN 1,000 MCG/ML 1 ML VIAL IM SCH (18:42)
[2023-11-30] MEDS: LACTULOSE 20 GM/30 ML CUP PO ONE (18:43)
[2023-11-30] MEDS: CYANOCOBALAMIN 1,000 MCG/ML 1 ML VIAL IM ONE (22:13)
--- NOTE | 2023-11-30 22:39 | EEG ---
ELECTROENCEPHALOGRAM REPORT PREAMBLE: This is a 72-year-old male presenting with possible stroke versus seizure. EEG FINDINGS: This is a 21-channel digital EEG recorded with video component, utilizing 10/20 international system with referential and bipolar montages. Background consists of a well developed, well regulated, low to medium amplitude 8 hertz alpha activity seen in posterior head region. Background is posterior dominant and is reactive to eye opening or closing. Some drowsiness was seen with appearance of bilaterally symmetric theta frequency rhythm. Deeper stages of sleep were not seen. No focal or generalized epileptiform activity was seen. Photic driving response was not seen. Hyperventilation was not done. IMPRESSION: This is a normal awake and drowsy EEG. No focal, lateralized or epileptiform activity was seen. MMODL / IJN: [id number] /
[2023-12-01] MEDS: LORazepam 1 MG TAB PO PRN (00:59)
--- NOTE | 2023-12-01 08:54 | P.PN ---
Subjective Progress Note Date: 11/30/23 Patient was seen for follow-up. Patient is sitting comfortably in the bed. Offers no new complaints. Objective - Vital Signs Vital signs: Vital Signs Temp 97.8 F 11/30/23 20:00 Pulse 83 11/30/23 20:00 Resp 18 11/30/23 20:00 BP 147/78 11/30/23 20:00 Pulse Ox 97 11/30/23 20:00 FiO2 Intake & Output 11/30/23 11/30/23 12/01/23 06:59 18:59 06:59 Intake Total 658 Output Total 400 300 Balance -400 358 Intake: Oral 658 Output: Urine 400 300 Other: Voiding Method Toilet Urinal # Bowel Movements 1 1 - Exam Unchanged. - Labs CBC & Chem 7: 11/27/23 15:05 11/27/23 15:05 Assessment and Plan Assessment: * Acute episode of right leg weakness, with some speech difficulty noted in the ambulance. Rule out stroke/TIA. Patient had a seizure-like activity also witnessed by EMS in the ambulance. Current examination reveals mild right jose ed weakness, uncertain new or old. Rule out acute CVA. 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 Patient states he drags right leg with walking. * History of right CEA in March 2023 * Reported history of left CEA 6 years ago * History of multiple TIA * Coronary artery disease, with multiple cardiac stents history * Hypertension * Hyperlipidemia * History of DVT, on Xarelto * Tobacco use Plan: * Await MRI of the brain evaluate for any acute stroke * CTA of head and neck revealed no significant stenosis. Patient has history of bilateral CEA. * Continue Xarelto 10 mg daily. Uncertain as to the reason of being on Xarelto. * Lipid panel with cholesterol monitoring, LDL 49, HDL 48, triglycerides 101. Continue Lipitor 80 mg daily (home medication) * Patient had ISRAEL on 03/31/2023, which revealed normal left ventricular size and systolic function, normal appearance of the left atrial appendage, no shunting across the interatrial septum. Mild MR and TR. * Hemoglobin A1c 6.0. * Blood pressure is well-controlled. * Patient has abnormal gait. B12 194, folate 3.2. Patient has significant B12 and folate deficiency. Patient will be started on B12 injection, and folate 1 mg daily. * CK1 23. TSH pending. * EEG was normal awake and drowsy. No focal, lateralized or epileptiform activity was seen. * Patient currently on Vimpat 100 mg twice daily which will be continued. * Recommend complete tobacco cessation. * Neurologically clear, if the MRI comes back normal. Discussed with primary physician.
--- NOTE | 2023-12-01 13:41 | P.PN ---
Progress Note - Text Progress Note Date: 12/01/23 Chief Complaint: Numbness weakness both the legs below the knee This is a 72-year-old patient who follows with Dr. Felix. History of cardiac arrest. Tonic-clonic seizure. medical conditions include coronary artery disease with stent, GERD, hyperlipidemia, essential hypertension primary osteoarthritis. History of head injury. Hepatitis C. Arthritis. Patient has chronic right-sided weakness from prior stroke. Does use a cane. Also decrease nasolabial fold on the right side of the face. March 2023 right carotid endarterectomy. [place] following stroke in February 2023 that is unremarkable. Patient yesterday noticed both the legs below the knee having no feeling. Likely losing control. He had to crawl. Decided to come to the ER. No other weakness present no change in speech headache vision change. CT brain in the ER unremarkable. Overnight symptoms are resolved. Back to his baseline. Reportedly patient had a seizure-like activity witnessed by the EMS in the ambulance. November 29, 2023: Resting in bed. Comfortable. Neurological symptoms back to baseline. Pending MRI. Discussed with Dr. Saldaña. Eating well. Patient felt that he was given Xarelto for possible abnormal rhythm to prevent strokes at [facility] last year November 30, 2023: Discussed with Dr. Saldaña from neurology. EEG negative. Pending MRI. Patient otherwise feels at his baseline. Eating well. B12 and folate deficiency. Supplement added. December 01, 2023: Pending MRI. No change in neurological status. Tolerating diet. At Active Medications Aspirin (Aspirin 81 Mg) 81 mg PO DAILY [facility] Last Admin: 12/01/23 08:22 Dose: 81 mg Atorvastatin Calcium (Atorvastatin 80 Mg Tab) 80 mg PO [facility] Last Admin: 11/30/23 21:27 Dose: 80 mg Cyanocobalamin (Cyanocobalamin 1,000 Mcg/Ml 1 Ml Vial) 1,000 mcg IM DAILY [facility] Last Admin: 12/01/23 08:22 Dose: 1,000 mcg Cyclobenzaprine HCl (Cyclobenzaprine 10 Mg Tab) 10 mg PO [facility] Last Admin: 11/30/23 21:27 Dose: 10 mg Donepezil HCl (Donepezil 10 Mg Tab) 10 mg PO [facility] Last Admin: 11/30/23 21:27 Dose: 10 mg Fluoxetine HCl (Fluoxetine Hcl 20 Mg Cap) 60 mg PO W/LUNCH [facility] Last Admin: 12/01/23 12:05 Dose: 60 mg Fluticasone Propionate (Fluticasone 50mcg/[place] Nasal 16gm) 1 spray EA NOSTRIL DAILY [facility] Last Admin: 12/01/23 08:25 Dose: 1 spray Folic Acid (Folic Acid 1 Mg Tab) 1 mg PO DAILY [facility] Last Admin: 12/01/23 08:21 Dose: 1 mg Isosorbide Mononitrate (Isosorbide Mononitrate Er 30 Mg Tab.Er.24h) 30 mg PO DAILY [facility] Last Admin: 12/01/23 08:21 Dose: 30 mg Lacosamide (Lacosamide 50 Mg Tablet) 100 mg PO BID [facility] Last Admin: 12/01/23 08:21 Dose: 100 mg Lorazepam (Lorazepam 1 Mg Tab) 1 mg PO TID PRN PRN Reason: Anxiety Last Admin: 12/01/23 00:59 Dose: 1 mg Metoprolol Succinate (Metoprolol Succinate (Er) 25 Mg Tab.Er.24h) 25 mg PO DAILY [facility] Last Admin: 12/01/23 08:22 Dose: 25 mg Montelukast Sodium (Montelukast 10 Mg Tab) 10 mg PO [facility] Last Admin: 11/30/23 21:26 Dose: 10 mg Oxycodone/Acetaminophen (Oxycodone-Apap 10-325mg 1 Each Tab) 1 each PO QID [facility] Last Admin: 12/01/23 08:22 Dose: 1 each Pantoprazole Sodium (Pantoprazole 40 Mg Tablet) 40 mg PO DAILY [facility] Last Admin: 12/01/23 08:22 Dose: 40 mg Rivaroxaban (Rivaroxaban 10 Mg Tab) 10 mg PO DAILY [facility]; Protocol Last Admin: 12/01/23 08:22 Dose: 10 mg Senna (Sennosides 8.6 Mg Tab) 8.6 mg PO BID [facility] Last Admin: 12/01/23 08:23 Dose: Not Given Trazodone HCl (Trazodone Hcl 100 Mg Tab) 100 mg PO [facility] Last Admin: 11/30/23 21:27 Dose: 100 mg Past medical history to include: Concussion, possible tonic-clonic seizure, coronary artery disease with stent, GERD, hyperlipidemia, essential hypertension, primary osteoarthritis, nicotine dependence.. Stroke March 2023-with residual right-sided weakness and weakness right side of the face Social history: Lives alone. Smokes a pack a day-several years. Physical examination: VITAL SIGNS: 98.2, 77, 16, 137/99, 99% room air GENERAL: Laying in bed, comfortable EYES: Pupils equal. Conjunctiva normal. HEENT: External appearance of nose and ears normal, oral cavity grossly normal. NECK: JVD not raised; masses not palpable. HEART: First and second heart sounds are normal; no edema. Decreased dorsalis pedis. LUNGS: Respiratory rate normal; decreased breath sounds. ABDOMEN: Soft, nontender, liver spleen not palpable, no masses palpable. PSYCH: X 3, mood affect normal NEUROLOGICAL: Cranial nerves grossly intact. Moving all 4 limbs. Power on the right side 4/5. Flattening of right nasolabial fold. MUSCULAR skeletal: Evidence of OA. INVESTIGATIONS, reviewed in the clinical context: B12 194 folate 3.2 November 26: White count 9.4 hemoglobin 12.2 platelets 232 sodium 139 potassium 4.6 creatinine 1.23 Troponin I 0.0466 LDL 49.6 EKG tracing personally reviewed by me-normal sinus rhythm. Chest x-ray film personally reviewed by me-cardiomegaly. Some opacity on the right side. CT angiogram head and neck: Unremarkable CT brain without contrast: Nothing acute reported March 2023 Brain MRI with and without contrast: Chronic changes EEG: Mild encephalopathy. No epileptiform discharge. Computed tomography scan brain without contrast: Remote lacunar infarct in the lateral basal ganglia which is stable.. February 2023 [place]: Bubble study was negative for any shunting. No embolic source was detected. Carotid Doppler: 50-69% reduction suggested bilaterally. MRI brain without contrast: Acute/subacute CVA involving the right thalamus and the left parietal occipital region. Some nonspecific) changes. Assessment and plan: -Patient presents with bilateral numbness and weakness of both the legs below the knee to the foot. Overnight the symptoms are resolved. [Patient has chronic weakness in the right side.-Patient states this is his baseline.]: Possible TIA Neurology following. MRI brain-pending -t tonic-clonic seizures. History of strokes epilepsy: Patient reported to have possible 1 episode in the EMS Seizure precautions. EEG pending Vimpat 100 mg twice a day. Neurology following Outpatient: Neurologist Dr. Bryan -Prior history of aggressive behavior likely could be manifestation of temporal lobe seizure.: -History: Subacute stroke March 2023 Involving the right thalamus and the left parietal/occipital region. Status post TPA. Aspirin. Brillinta [place] : Negative for shunting or embolic source. Follow-up with Dr. Flaherty -Right endarterectomy patch done by Dr. Agustina Romero April 03. -Possible atrial fibrillation in 2022 at [facility] As per the patient. Xarelto -Vitamin B12 and folate deficiency B12 supplementation and folic acid added -Coronary artery disease with stent Aspirin. -GERD PPI -Hyperlipidemia Lipitor 80 mg daily at bedtime. -Essential hypertension Lisinopril 2.5 mg daily at bedtime -Primary osteoarthritis Percocet when necessary Continue current medications. Pending MRI. Past Medical History Past Medical History: Coronary Artery Disease (CAD), CVA/TIA, GERD/Reflux, Hyperlipidemia, Hypertension, Liver Disease, Myocardial Infarction ([place]), Vascular Disorder Additional Past Medical History / Comment(s): Patient states he was admitted to the hospital January after a fall with head injury/new onset seizures and was hospitalized at [facility] in [place]. He was on life support and was extubated and had one more seizure. 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 Patient states he has Hepatitis C. Last Myocardial Infarction Date:: 2011 History of Any Multi-Drug Resistant Organisms: None Reported Past Surgical History: Heart Catheterization With Stent, Orthopedic Surgery Additional Past Surgical History / Comment(s): PCI with a total of 7 stents per pt, L caratid endartectomy, L shoulder surgery for injury, R knee/R hip/R elbow/R wrist ligament/tendon type surgeries injuries-has pins in hand, colonoscopy. Past Anesthesia/Blood Transfusion Reactions: No Reported Reaction Date of Last Stent Placement:: 2011 Past Psychological History: Anxiety Additional Psychological History / Comment(s): Pt resides alone. He was to start with home care services, Smoking Status: Current every day smoker Past Alcohol Use History: None Reported Additional Past Alcohol Use History / Comment(s): Pt started smoking in 1961-2 ppd. Past Drug Use History: Marijuana Additional Drug Use History / Comment(s): Patient smokes marijuana at times. Pt states history of ETOH abuse 10yrs ago.
[2023-12-01 14:00] VITALS: RESP 18
[2023-12-01] MEDS: LORazepam 1 MG TAB PO STA (15:56)
--- NOTE | 2023-12-01 17:39 | MR ---
EXAMINATION TYPE: MR brain wo con DATE OF EXAM: 12/01/2023 4:59 PM CLINICAL INDICATION:Male, 72 years old with history of Stroke vs seizure; PHH, Stroke vs seizure COMPARISON: 11/27/2023. TECHNIQUE: Multi planar, multi sequence imaging was performed through the brain including: T1, T2, In version recovery, Diffusion weighted imaging, and gradient echo imaging. No gadolinium was given. FINDINGS: The bender-white junctions, ventricular system, basal cisterns appear unremarkable. Remote injury to the left parietal region and right periventricular white matter in the parietal lobe. Scattered foci of high T2 signal intensity are seen within the periventricular white matter. Midline structures show no abnormality. Diffusion-weighted imaging shows no evidence of restricted diffusion. The susceptibi lity weighted images do not reveal any evidence for micro-hemorrhage. The bone marrow signal is within normal limits. Paranasal sinuses and mastoid air cells: Scattered high T2 signal throughout the mastoid air cells le ft greater than right. Visualized orbits: Orbital contents are intact. IMPRESSION: 1. No evidence of intracranial mass or acute/subacute infarct. 2. Nonspecific white matter changes, likely secondary to small vessel ischemic disease. 3. Remote injury to bilateral parietal lobes. 4. Trace mastoid air cell effusion.
[2023-12-02 08:57] VITALS: BP 103/61; PULSE 76; TEMP 97.5
--- NOTE | 2023-12-02 10:31 | P.PN ---
Subjective Progress Note Date: 12/01/23 Patient was seen for follow-up. Patient is sitting comfortably in the bed. Offers no new complaints. Objective - Vital Signs Vital signs: Vital Signs Temp 97.6 F 12/01/23 13:40 Pulse 71 12/01/23 13:40 Resp 18 12/01/23 13:40 BP 105/55 12/01/23 13:40 Pulse Ox 97 12/01/23 13:40 FiO2 Intake & Output 11/30/23 12/01/23 12/01/23 18:59 06:59 18:59 Intake Total 658 540 221 Output Total 300 Balance 358 540 221 Intake: Oral 658 540 221 Output: Urine 300 Other: Voiding Method Toilet Toilet Urinal Urinal # Voids 1 # Bowel Movements 1 3 - Exam Unchanged. - Labs CBC & Chem 7: 11/27/23 15:05 11/27/23 15:05 Assessment and Plan Assessment: * Acute episode of right leg weakness, with some speech difficulty noted in the ambulance. Rule out stroke/TIA. Patient had a seizure-like activity also witnessed by EMS in the ambulance. Current examination reveals mild right sided weakness, probably old finding. Acute stroke ruled out with MRI. 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 Patient states he drags right leg with walking. * History of right CEA in March 2023 * Reported history of left CEA 6 years ago * History of possible paroxysmal atrial fibrillation in 2022 at [facility]. * History of multiple TIA * Coronary artery disease, with multiple cardiac stents history * Hypertension * Hyperlipidemia * History of DVT, on Xarelto * Tobacco use * Vitamin B12 deficiency * Folate deficiency Plan: * MRI of the brain revealed no evidence of intracranial mass or acute/subacute infarct. Nonspecific white matter changes, likely secondary to small vessel ischemic disease. Remote injury to bilateral parietal lobes. Trace mastoid air cell effusion. I personally reviewed MRI, agree with the findings. * CTA of head and neck revealed no significant stenosis. Patient has history of bilateral CEA. * Continue Xarelto 10 mg daily. Patient had possible atrial fibrillation while he was in [place] in 2022. * Lipid panel with cholesterol monitoring, LDL 49, HDL 48, triglycerides 101. Continue Lipitor 80 mg daily (home medication) * Patient had ISRAEL on 03/31/2023, which revealed normal left ventricular size and systolic function, normal appearance of the left atrial appendage, no shunting across the interatrial septum. Mild MR and TR. * Hemoglobin A1c 6.0. * Blood pressure is well-controlled. * Patient has abnormal gait. B12 194, folate 3.2. Patient has significant B12 and folate deficiency. Patient will be started on B12 injection, and folate 1 mg daily. * CK1 23. TSH 1.60. * EEG was normal awake and drowsy. No focal, lateralized or epileptiform activity was seen. * Patient currently on Vimpat 100 mg twice daily which will be continued. * Recommend complete tobacco cessation. * Neurologically clear for discharge on Xarelto, aspirin 81 mg, B12, folate and statins. * May follow-up with neurologist outpatient in 2 to 4 weeks.
--- NOTE | 2023-12-02 16:55 | P.DS ---
Providers Date of admission: 11/27/23 17:05 Expected date of discharge: 12/02/23 Attending physician: Stephane El Consults: 11/27/23 17:05 Consult Physician Routine Consulting Provider: Chris Bejarano Consult Reason/Comments: code stroke Do you want consulting provider notified?: Yes Primary care physician: [facility] Course: Chief Complaint: Numbness weakness both the legs below the knee This is a 72-year-old patient who follows with Dr. Felix. History of cardiac arrest. Tonic-clonic seizure. medical conditions include coronary artery disease with stent, GERD, hyperlipidemia, essential hypertension primary osteoarthritis. History of head injury. Hepatitis C. Arthritis. Patient has chronic right-sided weakness from prior stroke. Does use a cane. Also decrease nasolabial fold on the right side of the face. March 2023 right carotid endarterectomy. ISRAEL following stroke in February 2023 that is unremarkable. Patient yesterday noticed both the legs below the knee having no feeling. Likely losing control. He had to crawl. Decided to come to the ER. No other weakness present no change in speech headache vision change. CT brain in the ER unremarkable. Overnight symptoms are resolved. Back to his baseline. Reportedly patient had a seizure-like activity witnessed by the EMS in the ambulance. November 29, 2023: Resting in bed. Comfortable. Neurological symptoms back to baseline. Pending MRI. Discussed with Dr. Saldaña. Eating well. Patient felt that he was given Xarelto for possible abnormal rhythm to prevent strokes at [facility] last year November 30, 2023: Discussed with Dr. Saldaña from neurology. EEG negative. Pending MRI. Patient otherwise feels at his baseline. Eating well. B12 and folate deficiency. Supplement added. December 01, 2023: Pending MRI. No change in neurological status. Tolerating diet. December 02, 2023: MRI showed chronic changes. Discussed with patient. Medications to continue. Discussed. Likely diagnosis TIA. Follow-up with neurology. Past medical history to include: Concussion, possible tonic-clonic seizure, coronary artery disease with stent, GERD, hyperlipidemia, essential hypertension, primary osteoarthritis, nicotine dependence.. Stroke March 2023-with residual right-sided weakness and weakness right side of the face Social history: Lives alone. Smokes a pack a day-several years. Physical examination: VITAL SIGNS: 97.5, 76, 18, 103 x 61, 97% room air GENERAL: Sitting up, comfortable EYES: Pupils equal. Conjunctiva normal. HEENT: External appearance of nose and ears normal, oral cavity grossly normal. NECK: JVD not raised; masses not palpable. HEART: First and second heart sounds are normal; no edema. Decreased dorsalis pedis. LUNGS: Respiratory rate normal; decreased breath sounds. ABDOMEN: Soft, nontender, liver spleen not palpable, no masses palpable. PSYCH: X 3, mood affect normal NEUROLOGICAL: Cranial nerves grossly intact. Moving all 4 limbs. Power on the right side 4/5. Flattening of right nasolabial fold. MUSCULAR skeletal: Evidence of OA. INVESTIGATIONS, reviewed in the clinical context: Brain MRI: Nonspecific white matter changes. Remote injury to bilateral parietal lobes. B12 194 folate 3.2 TSH 1.6 November 26: White count 9.4 hemoglobin 12.2 platelets 232 sodium 139 potassium 4.6 creatinine 1.23 Troponin I 0.0466 LDL 49.6 EKG tracing personally reviewed by me-normal sinus rhythm. Chest x-ray film personally reviewed by me-cardiomegaly. Some opacity on the right side. CT angiogram head and neck: Unremarkable CT brain without contrast: Nothing acute reported March 2023 Brain MRI with and without contrast: Chronic changes EEG: Mild encephalopathy. No epileptiform discharge. Computed tomography scan brain without contrast: Remote lacunar infarct in the lateral basal ganglia which is stable.. February 2023 ISRAEL: Bubble study was negative for any shunting. No embolic source was detected . Carotid Doppler: 50-69% reduction suggested bilaterally. MRI brain without contrast: Acute/subacute CVA involving the right thalamus and the left parietal occipital region. Some nonspecific) changes. Assessment and plan: -Patient presents with bilateral numbness and weakness of both the legs below the knee to the foot. Overnight the symptoms are resolved. [Patient has chronic weakness in the right side.-Patient states this is his baseline.]: TIA Neurology following. MRI brain-chronic changes -t tonic-clonic seizures. History of strokes epilepsy: Patient reported to have possible 1 episode in the EMS Seizure precautions. EEG pending Vimpat 100 mg twice a day. Neurology following Outpatient: Neurologist Dr. Bryan -Prior history of aggressive behavior likely could be manifestation of temporal lobe seizure.: -History: Subacute stroke March 2023 Involving the right thalamus and the left parietal/occipital region. Status post TPA. Aspirin. Brillinta ISRAEL : Negative for shunting or embolic source. Follow-up with Dr. Flaherty -Right endarterectomy patch done by Dr. Agustina Romero April 03. -Possible atrial fibrillation in 2022 at [facility] As per the patient. Xarelto -Vitamin B12 and folate deficiency B12 supplementation and folic acid supplement -Coronary artery disease with stent Aspirin. -GERD PPI -Hyperlipidemia Lipitor 80 mg daily at bedtime. -Essential hypertension Toprol-XL 25 mg a day -Primary osteoarthritis Percocet when necessary Disposition: Home Past Medical History Past Medical History: Coronary Artery Disease (CAD), CVA/TIA, GERD/Reflux, Hyperlipidemia, Hypertension, Liver Disease, Myocardial Infarction (AL), Vascular Disorder Additional Past Medical History / Comment(s): Patient states he was admitted to the hospital January after a fall with head injury/new onset seizures and was hospitalized at [facility] in [place]. He was on life support and was extubated and had one more seizure. 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 Patient states he has Hepatitis C. Last Myocardial Infarction Date:: 2011 History of Any Multi-Drug Resistant Organisms: None Reported Past Surgical History: Heart Catheterization With Stent, Orthopedic Surgery Additional Past Surgical History / Comment(s): PCI with a total of 7 stents per pt, L caratid endartectomy, L shoulder surgery for injury, R knee/R hip/R elbow/ R wrist ligament/tendon type surgeries injuries-has pins in hand, colonoscopy. Past Anesthesia/Blood Transfusion Reactions: No Reported Reaction Date of Last Stent Placement:: 2011 Past Psychological History: Anxiety Additional Psychological History / Comment(s): Pt resides alone. He was to start with home care services, Smoking Status: Current every day smoker Past Alcohol Use History: None Reported Additional Past Alcohol Use History / Comment(s): Pt started smoking in 1961-2 ppd. Past Drug Use History: Marijuana Additional Drug Use History / Comment(s): Patient smokes marijuana at times. Pt states history of ETOH abuse 10yrs ago. Plan - Discharge Summary Discharge Rx Participant: Yes New Discharge Prescriptions: New Aspirin 81 mg PO DAILY #30 tab Folic Acid 1 mg PO DAILY #30 tab Cyanocobalamin [Vitamin B-12] 500 mcg PO WEEKLY #30 tablet Continue Isosorbide Mononitrate ER [Imdur] 30 mg PO DAILY Donepezil [Aricept] 10 mg PO HS Lacosamide [Vimpat] 100 mg PO BID #60 tab Rivaroxaban [Xarelto] 10 mg PO DAILY #30 tab Montelukast [Singulair] 10 mg PO HS traZODone HCL 100 mg PO HS SUMAtriptan succinate 50 mg PO DAILY PRN PRN Reason: Migraine Headache Metoprolol Succinate (ER) [Toprol XL] 25 mg PO DAILY Pantoprazole Sodium [Protonix] 20 mg PO BID Cyclobenzaprine [Flexeril] 10 mg PO HS oxyCODONE-APAP 10-325MG [Percocet 10-325 mg] 1 tab PO QID Atorvastatin [Lipitor] 80 mg PO HS #30 tab Fluticasone Nasal [place] [Flonase Nasal [place]] 1 spray EA NOSTRIL DAILY LORazepam [Ativan] 1 mg PO TID PRN PRN Reason: Anxiety FLUoxetine HCL [PROzac] 60 mg PO W/LUNCH Discharge Medication List Isosorbide Mononitrate ER [Imdur] 30 mg PO DAILY 09/07/17 [History] Donepezil [Aricept] 10 mg PO HS 04/11/19 [History] Cyclobenzaprine [Flexeril] 10 mg PO HS 03/22/23 [History] Pantoprazole Sodium [Protonix] 20 mg PO BID 03/22/23 [History] oxyCODONE-APAP 10-325MG [Percocet 10-325 mg] 1 tab PO QID 03/22/23 [History] Atorvastatin [Lipitor] 80 mg PO HS #30 tab 04/06/23 [Rx] Lacosamide [Vimpat] 100 mg PO BID #60 tab 04/21/23 [Rx] Rivaroxaban [Xarelto] 10 mg PO DAILY #30 tab 04/21/23 [Rx] FLUoxetine HCL [PROzac] 60 mg PO W/LUNCH 11/27/23 [History] Fluticasone Nasal [place] [Flonase Nasal [place]] 1 spray EA NOSTRIL DAILY 11/27/23 [History] LORazepam [Ativan] 1 mg PO TID PRN 11/27/23 [History] Metoprolol Succinate (ER) [Toprol XL] 25 mg PO DAILY 11/27/23 [History] Montelukast [Singulair] 10 mg PO HS 11/27/23 [History] SUMAtriptan succinate 50 mg PO DAILY PRN 11/27/23 [History] traZODone HCL 100 mg PO HS 11/27/23 [History] Aspirin 81 mg PO DAILY #30 tab 12/02/23 [Rx] Cyanocobalamin [Vitamin B-12] 500 mcg PO WEEKLY #30 tablet 12/02/23 [Rx] Folic Acid 1 mg PO DAILY #30 tab 12/02/23 [Rx] Follow up Appointment(s)/Referral(s): Aaron Felix MD [Primary Care Provider] - 12/09/23 1:00 pm [facility], [NON-STAFF] - Chris Catherine MD [STAFF PHYSICIAN] - 2 Weeks (office will call you with follow up ) Discharge Disposition: HOME SELF-CARE
== END 2023-12-02 12:50 | disposition home or self-care (01) ==
LOC: EC 14:38 → 3SCARD 17:05 → INTOOBSV 17:05 → UNDOADMOB 17:05 → 3SCARD 17:06 → UNDODISIN 12-02 12:50
PROVIDERS: ADMIT Hospitalist; ATTEND Hospitalist
DX: R20.0 Anesthesia of skin (principal); I69.351 Hemiplegia and hemiparesis following cerebral infarction affecting right dominant side; R53.1 Weakness; I25.10 Atherosclerotic heart disease of native coronary artery without angina pectoris; E78.5 Hyperlipidemia, unspecified; I10 Essential (primary) hypertension; K21.9 Gastro-esophageal reflux disease without esophagitis; F41.9 Anxiety disorder, unspecified; M19.91 Primary osteoarthritis, unspecified site; G40.409 Other generalized epilepsy and epileptic syndromes, not intractable, without status epilepticus; E53.8 Deficiency of other specified B group vitamins; F17.200 Nicotine dependence, unspecified, uncomplicated; I25.2 Old myocardial infarction; Z86.718 Personal history of other venous thrombosis and embolism; Z86.74 Personal history of sudden cardiac arrest; Z95.5 Presence of coronary angioplasty implant and graft; Z79.01 Long term (current) use of anticoagulants; Z79.899 Other long term (current) drug therapy; Z88.5 Allergy status to narcotic agent
CPT/HCPCS: 99285; 36415; 94760; 95816; 93005; 97116; 97161; 97166; 92523; 80061; 80053; 84443; 82607; 82550; 82746; 84484; 85025; 85610; 85730; 83036; 71046; 70496; 70450; 70498; 70551; G0378 ×6; J3420 ×3; Q9967; 99291

== ENCOUNTER 2024-01-04 11:30 | Inpatient (IN) | payer MEDICARE, OTHER ==
[2024-01-04] MEDS: ALBUTEROL NEBULIZED 2.5 MG/3 ML INHALATION STA (12:12)
[2024-01-04] MEDS: IPRATROPIUM 0.5 MG/2.5 ML NEBU INHALATION STA (12:12)
[2024-01-04 12:16] LABS: ALT 262 U/L (4-49); African American GFR (CKD) 83 (>60 ml/min/1.73 sqM); Albumin 3.6 g/dL (3.5-5.0); Anion Gap 8 mmol/L; Blood Urea Nitrogen 26 mg/dL (9-20); Calcium 8.6 mg/dL (8.4-10.2); Carbon Dioxide 24 mmol/L (22-30); Chloride 108 mmol/L (98-107); Glucose 114 mg/dL (74-99); Non-African American GFR(CKD) 72 (>60 ml/min/1.73 sqM); Sodium 140 mmol/L (137-145); Total Bilirubin 1.2 mg/dL (0.2-1.3); Total Protein 6.3 g/dL (6.3-8.2)
[2024-01-04] MEDS: methylPREDNISolone SOD SUCCI 125 MG/2 ML VIAL IV STA (12:20)
--- NOTE | 2024-01-04 12:21 | ED ---
General Adult HPI - General Chief complaint: Shortness of Breath Stated complaint: ODALIS Time Seen by Provider: 01/04/24 11:34 Source: patient, RN notes reviewed, old records reviewed Mode of arrival: EMS Limitations: altered mental status - History of Present Illness Initial comments: 73-year-old male presenting with difficulty breathing and hypoxia. Patient was found to be 70% with paramedics after there was a call for lift assist or well check. Patient had refused transport but paramedics were again called for evaluation. At this time the patient was agreeable with transfer. He is confused and the history is limited. He denies focal pain but states he has generalized pain all over. Denies fever. - Related Data Home Medications Medication Instructions Recorded Confirmed Isosorbide Mononitrate ER [Imdur] 30 mg PO DAILY 09/07/17 11/27/23 Donepezil [Aricept] 10 mg PO HS 04/11/19 11/27/23 Cyclobenzaprine [Flexeril] 10 mg PO HS 03/22/23 11/27/23 Pantoprazole Sodium [Protonix] 20 mg PO BID 03/22/23 11/27/23 oxyCODONE-APAP 10-325MG [Percocet 1 tab PO QID 03/22/23 11/27/23 10-325 mg] FLUoxetine HCL [PROzac] 60 mg PO W/LUNCH 11/27/23 11/27/23 Fluticasone Nasal Diller [Flonase 1 spray EA NOSTRIL DAILY 11/27/23 11/27/23 Nasal Diller] LORazepam [Ativan] 1 mg PO TID PRN 11/27/23 11/27/23 Metoprolol Succinate (ER) [Toprol 25 mg PO DAILY 11/27/23 11/27/23 XL] Montelukast [Singulair] 10 mg PO HS 11/27/23 11/27/23 SUMAtriptan succinate 50 mg PO DAILY PRN 11/27/23 11/27/23 traZODone HCL 100 mg PO HS 11/27/23 11/27/23 Previous Rx's Medication Instructions Recorded Atorvastatin [Lipitor] 80 mg PO HS #30 tab 04/06/23 Lacosamide [Vimpat] 100 mg PO BID #60 tab 04/21/23 Rivaroxaban [Xarelto] 10 mg PO DAILY #30 tab 04/21/23 Aspirin 81 mg PO DAILY #30 tab 12/02/23 Cyanocobalamin [Vitamin B-12] 500 mcg PO WEEKLY #30 tablet 12/02/23 Folic Acid 1 mg PO DAILY #30 tab 12/02/23 Allergies Allergy/AdvReac Type Severity Reaction Status Date / Time alprazolam [From Xanax] Allergy Rash/Hives Verified 01/04/24 11:39 codeine Allergy Rash/Hives Verified 01/04/24 11:39 nicotine [From Nicoderm CQ] AdvReac Hallucinati Verified 01/04/24 11:39 ons zolpidem [From Ambien] AdvReac "salty" Verified 01/04/24 11:39 taste in mouth, numb mouth Review of Systems ROS Statement: Those systems with pertinent positive or pertinent negative responses have been documented in the HPI. ROS Other: All systems not noted in ROS Statement are negative. Past Medical History Past Medical History: Coronary Artery Disease (CAD), CVA/TIA, GERD/Reflux, Hyperlipidemia, Hypertension, Liver Disease, Myocardial Infarction (HI), Vascular Disorder Additional Past Medical History / Comment(s): Patient states he was admitted to the hospital January after a fall with head injury/new onset seizures and was hospitalized at [facility] in [place]. He was on life support and was extubated and had one more seizure. 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 Patient states he has Hepatitis C. Last Myocardial Infarction Date:: 2011 History of Any Multi-Drug Resistant Organisms: None Reported Past Surgical History: Heart Catheterization With Stent, Orthopedic Surgery Additional Past Surgical History / Comment(s): PCI with a total of 7 stents per pt, L caratid endartectomy, L shoulder surgery for injury, R knee/R hip/R elbow/R wrist ligament/tendon type surgeries injuries-has pins in hand, colonoscopy. Past Anesthesia/Blood Transfusion Reactions: No Reported Reaction Date of Last Stent Placement:: 2011 Past Psychological History: Anxiety Smoking Status: Current every day smoker Past Alcohol Use History: Occasional Past Drug Use History: Marijuana - Past Family History Father Family Medical History: CVA/TIA Additional Family Medical History / Comment(s): Father is from CVA. Pt states father from "stupidity." Mother Family Medical History: Diabetes Mellitus Additional Family Medical History / Comment(s): Mother from diabetes at the age of 52 yrs. Brother(s) Family Medical History: Diabetes Mellitus Additional Family Medical History / Comment(s): Brother at the age of 32 yrs from type 1 diabetes. General Exam Limitations: altered mental status General appearance: lethargic, in distress Head exam: Present: atraumatic, normocephalic Eye exam: Present: normal appearance, PERRL Neck exam: Present: normal inspection. Absent: tenderness Respiratory exam: Present: respiratory distress, rales, decreased breath sounds Cardiovascular Exam: Present: regular rate, normal rhythm GI/Abdominal exam: Present: soft. Absent: distended, tenderness, guarding Extremities exam: Present: normal inspection, normal capillary refill. Absent: pedal edema Neurological exam: Present: alert. Absent: oriented X3 Psychiatric exam: Present: normal affect, normal mood Skin exam: Present: warm, dry, pallor Course Vital Signs 01/04/24 01/04/24 01/04/24 11:32 11:40 11:59 Temperature 98.2 F Pulse Rate 82 73 Respiratory 22 18 Rate Blood Pressure 153/81 O2 Sat by Pulse 80 L 86 L 91 L Oximetry 01/04/24 01/04/24 01/04/24 12:15 12:24 12:27 Temperature Pulse Rate 76 74 Respiratory 22 22 Rate Blood Pressure 144/92 O2 Sat by Pulse 96 Oximetry 01/04/24 01/04/24 12:35 12:38 Temperature Pulse Rate 72 71 Respiratory 18 Rate Blood Pressure 133/82 O2 Sat by Pulse 95 Oximetry Medical Decision Making - Medical Decision Making Was pt. sent in by a medical professional or institution (, PA, FITTER'S ASSISTANT, urgent care, hospital, or alf...) When possible be specific @ -No Did you speak to anyone other than the patient for history (EMS, parent, family, police, friend...)? What history was obtained from this source @ -No Did you review nursing and triage notes (agree or disagree)? Why? @ -I reviewed and agree with nursing and triage notes Were old charts reviewed (outside hosp., previous admission, EMS record, old EKG, old radiological studies, urgent care reports/EKG's, alf records)? Report findings @ -No old charts were reviewed Differential Dyspnea: Coronary syndrome, arrhythmia, tamponade, asthma, COPD, pulmonary embolism, pneumonia, pneumothorax, pulmonary effusion, anaphylaxis, diabetic ketoacidosis, flailed chest, pulmonary contusion, diaphragmatic rupture, anemia, neuromuscular, this is not meant to be an all-inclusive list. EKG interpreted by me (3pts min.). @Sinus bradycardia rate of 58, DE interval 153, QRS duration 99, QTc [address] segment elevation. X-rays interpreted by me (1pt min.). @ -Chest x-ray showing pulmonary vascular congestion and edema CT interpreted by me (1pt min.). @ -None done U/S interpreted by me (1pt. min.). @ -None done What testing was considered but not performed or refused? (CT, X-rays, U/S, labs)? Why? @ -None What meds were considered but not given or refused? Why? @ -None Did you discuss the management of the patient with other professionals (professionals i.e. , PA, FITTER'S ASSISTANT, lab, RT, psych nurse, social security assessor, media marketing manager, teacher, airframe technical officer, case management social worker)? Give summary @Case discussed with Dr. Lopez will admit Was smoking cessation discussed for >3mins.? @ -No Was critical care preformed (if so, how long)? @Yes, 35 minutes Were there social determinants of health that impacted care today? How? (Homelessness, low income, unemployed, alcoholism, drug addiction, transportation, low edu. Level, literacy, decrease access to med. care, retirement, rehab)? @ -No Was there de-escalation of care discussed even if they declined (Discuss DNR or withdrawal of care, Hospice)? DNR status @ -No What co-morbidities impacted this encounter? (DM, HTN, Smoking, COPD, CAD, Cancer, CVA, ARF, Chemo, Hep., AIDS, mental health diagnosis, sleep apnea, morbid obesity)? @ -None Was patient admitted / discharged? Hospital course, mention meds given and route, prescriptions, significant lab abnormalities, going to OR and other pertinent info. @ -[73 yo male presenting with hypoxia, respiratory distress. Patient placed on supplemental oxygen which does improve his oxygenation into the 90s. Patient has physical exam consistent with acute CHF. X-ray does show pulmonary edema. Patient has a BNP of 11,000 and an elevated troponin at 0.7. He is given Lasix and started on heparin. He is admitted to internal medicine with cardiology on consultation. Echo has been ordered and is pending. Undiagnosed new problem with uncertain prognosis? @ -No Drug Therapy requiring intensive monitoring for toxicity (Heparin, Nitro, Insulin, Cardizem)? @ -No Were any procedures done? @ -No Diagnosis/symptom? @ -[New onset CHF with hypoxia, NSTEMI Acute, or Chronic, or Acute on Chronic? @ -Acute Uncomplicated (without systemic symptoms) or Complicated (systemic symptoms)? @ -Default Side effects of treatment? @ -No Exacerbation, Progression, or Severe Exacerbation? @ -No Poses a threat to life or bodily function? How? (Chest pain, USA, HI, pneumonia, PE, COPD, DKA, ARF, appy, cholecystitis, CVA, Diverticulitis, Homicidal, Suicidal, threat to staff... and all critical care pts) @ -Yes, respiratory failure secondary to CHF - Lab Data Result diagrams: 01/04/24 11:57 01/04/24 11:57 Lab Results 01/04/24 01/04/24 01/04/24 Range/Units 11:57 11:57 12:19 WBC 13.2 H (3.8-10.6) k/uL RBC 4.07 L (4.30-5.90) m/uL Hgb 11.2 L (13.0-17.5) gm/dL Hct 36.2 L (39.0-53.0) % MCV 88.9 (80.0-100.0) fL MCH 27.5 (25.0-35.0) pg MCHC 30.9 L (31.0-37.0) g/dL RDW 15.8 H (11.5-15.5) % Plt Count 260 (150-450) k/uL MPV 10.1 Neutrophils % 81 % Lymphocytes % 8 % Monocytes % 9 % Eosinophils % 1 % Basophils % 0 % Neutrophils # 10.6 H (1.3-7.7) k/uL Lymphocytes # 1.1 (1.0-4.8) k/uL Monocytes # 1.2 H (0-1.0) k/uL Eosinophils # 0.1 (0-0.7) k/uL Basophils # 0.0 (0-0.2) k/uL Hypochromasia Slight PT 12.5 (10.0-12.5) sec INR 1.2 H (<1.2) APTT 23.9 (22.0-30.0) sec VBG pH (7.31-7.41) VBG pCO2 (37-51) mmHg VBG HCO3 (24-28) mmol/L Sodium 140 (137-145) mmol/L Potassium 4.7 (3.5-5.1) mmol/L Chloride 108 H (98-107) mmol/L Carbon Dioxide 24 (22-30) mmol/L Anion Gap 8 mmol/L BUN 26 H (9-20) mg/dL Creatinine 1.03 (0.66-1.25) mg/dL Est GFR (CKD-EPI)AfAm 83 (>60 ml/min/1.73 sqM) Est GFR (CKD-EPI)NonAf 72 (>60 ml/min/1.73 sqM) Glucose 114 H (74-99) mg/dL Plasma Lactic Acid Jack (0.7-2.0) mmol/L Calcium 8.6 (8.4-10.2) mg/dL Magnesium 2.5 H (1.6-2.3) mg/dL Total Bilirubin 1.2 (0.2-1.3) mg/dL AST 364 H (17-59) U/L ALT 262 H (4-49) U/L Alkaline Phosphatase 184 H (38-126) U/L Troponin I (0.000-0.034) ng/mL NT-Pro-B Natriuret Pep 84968 pg/mL Total Protein 6.3 (6.3-8.2) g/dL Albumin 3.6 (3.5-5.0) g/dL 01/04/24 01/04/24 01/04/24 Range/Units 12:19 12:19 12:20 WBC (3.8-10.6) k/uL RBC (4.30-5.90) m/uL Hgb (13.0-17.5) gm/dL Hct (39.0-53.0) % MCV (80.0-100.0) fL MCH (25.0-35.0) pg MCHC (31.0-37.0) g/dL RDW (11.5-15.5) % Plt Count (150-450) k/uL MPV Neutrophils % % Lymphocytes % % Monocytes % % Eosinophils % % Basophils % % Neutrophils # (1.3-7.7) k/uL Lymphocytes # (1.0-4.8) k/uL Monocytes # (0-1.0) k/uL Eosinophils # (0-0.7) k/uL Basophils # (0-0.2) k/uL Hypochromasia PT (10.0-12.5) sec INR (<1.2) APTT (22.0-30.0) sec VBG pH 7.43 H (7.31-7.41) VBG pCO2 39 (37-51) mmHg VBG HCO3 26 (24-28) mmol/L Sodium (137-145) mmol/L Potassium (3.5-5.1) mmol/L Chloride (98-107) mmol/L Carbon Dioxide (22-30) mmol/L Anion Gap mmol/L BUN (9-20) mg/dL Creatinine (0.66-1.25) mg/dL Est GFR (CKD-EPI)AfAm (>60 ml/min/1.73 sqM) Est GFR (CKD-EPI)NonAf (>60 ml/min/1.73 sqM) Glucose (74-99) mg/dL Plasma Lactic Acid Jack 1.6 (0.7-2.0) mmol/L Calcium (8.4-10.2) mg/dL Magnesium (1.6-2.3) mg/dL Total Bilirubin (0.2-1.3) mg/dL AST (17-59) U/L ALT (4-49) U/L Alkaline Phosphatase (38-126) U/L Troponin I 0.704 H* (0.000-0.034) ng/mL NT-Pro-B Natriuret Pep pg/mL Total Protein (6.3-8.2) g/dL Albumin (3.5-5.0) g/dL Critical Care Time Critical Care Time: Yes Total Critical Care Time: 35 Disposition Clinical Impression: Congestive heart failure Disposition: ADMITTED IP TO THIS HOSP Condition: Stable Is patient prescribed a controlled substance at d/c from ED?: No Referrals: Aaron Felix MD [Primary Care Provider] - 1-2 days Time of Disposition: 13:51
[2024-01-04 12:23] LABS: NT-Pro-B-Type Natriuretic Pept 11000 pg/mL
[2024-01-04 12:24] LABS: Magnesium 2.5 mg/dL (1.6-2.3); Potassium 4.7 mmol/L (3.5-5.1)
[2024-01-04 12:25] LABS: AST 364 U/L (17-59); Alkaline Phosphatase 184 U/L (38-126); Basophils % (A) 0 %; Eosinophils # (A) 0.1 k/uL (0-0.7); Eosinophils % (A) 1 %; HCT 36.2 % (39.0-53.0); HGB 11.2 gm/dL (13.0-17.5); Hypochromasia Slight; Lymphocytes # (A) 1.1 k/uL (1.0-4.8); Lymphocytes % (A) 8 %; MCH 27.5 pg (25.0-35.0); MCHC 30.9 g/dL (31.0-37.0); MCV 88.9 fL (80.0-100.0); Mean Platelet Volume 10.1; Monocytes # (A) 1.2 k/uL (0-1.0); Monocytes % (A) 9 %; Neutrophils # (A) 10.6 k/uL (1.3-7.7); Neutrophils % (A) 81 %; Platelet Count 260 k/uL (150-450); RBC 4.07 m/uL (4.30-5.90); RDW 15.8 % (11.5-15.5); WBC 13.2 k/uL (3.8-10.6)
[2024-01-04 12:32] LABS: VBG PH 7.43 (7.31-7.41)
[2024-01-04 12:42] LABS: INR 1.2 (<1.2); Partial Thromboplastin Time 23.9 sec (22.0-30.0); Prothrombin Time 12.5 sec (10.0-12.5)
--- NOTE | 2024-01-04 12:50 | XR ---
EXAMINATION TYPE: XR chest 1V portable DATE OF EXAM: 01/04/2024 COMPARISON: 11/27/2023 INDICATION: Difficulty breathing TECHNIQUE: Single frontal view of the chest is obtained. FINDINGS: The heart size is relatively prominent. The pulmonary vasculature is prominent. Diffuse increased opacities in the bilateral lung stevens. Correlate for IMPRESSION: 1. Pulmonary edema. Correlate for congestive heart failure.
[2024-01-04] MEDS ORDERED: NALOXONE 0.4 MG/ML 1 ML VIAL IV PRN (13:47)
[2024-01-04] MEDS: FUROSEMIDE 10 MG/ML 4 ML VIAL IV STA (14:16)
--- NOTE | 2024-01-04 15:12 | CT ---
EXAMINATION TYPE: CT brain wo con DATE OF EXAM: 01/04/2024 COMPARISON: 11/27/2023 HISTORY: weakness,fall CT DLP: 1113.[address] of the brain was performed. The ventricles, basal cisterns and sulci overlying the cerebral convexities demonstrate mild enlargem ent. There is no evidence for intracranial hemorrhage or sulcal effacement. There is decreased attenuation about the periventricular white matter and deep white matter of both c erebral hemispheres, compatible with chronic small vessel ischemia. Differential diagnosis does inclu de demyelination. No mass effects are seen.No midline shift. Osseous calvarium is intact. If symptoms persist consider MRI. IMPRESSION: 1. Age related atrophic and chronic small vessel ischemic change without acute intracranial process s een at this time.
[2024-01-04] MEDS: HEPARIN SODIUM 1,000 UN/ML (10ML VL) IV ONE (15:41)
[2024-01-04] MEDS: HEPARIN SOD,PORK IN 0.45% NACL 25,000 UNIT in 0.45% NACL 1 250ML.BAG IV SCH (15:42)
[2024-01-04] MEDS: FUROSEMIDE 10 MG/ML 4 ML VIAL IV SCH (22:34)
[2024-01-04] MEDS: HEPARIN SODIUM 1,000 UN/ML (10ML VL) IV PRN (22:42)
[2024-01-05 07:30] LABS: Basophils % (A) 0 %; Eosinophils % (A) 0 %; HCT 36.7 % (39.0-53.0); HGB 11.4 gm/dL (13.0-17.5); Hypochromasia Slight; Lymphocytes # (A) 0.6 k/uL (1.0-4.8); Lymphocytes % (A) 5 %; MCH 27.5 pg (25.0-35.0); MCHC 31.1 g/dL (31.0-37.0); MCV 88.6 fL (80.0-100.0); Mean Platelet Volume 9.3; Monocytes # (A) 0.6 k/uL (0-1.0); Monocytes % (A) 5 %; Neutrophils # (A) 12.4 k/uL (1.3-7.7); Neutrophils % (A) 90 %; Platelet Count 293 k/uL (150-450); RBC 4.14 m/uL (4.30-5.90); RDW 15.7 % (11.5-15.5); WBC 13.9 k/uL (3.8-10.6)
[2024-01-05 07:36] LABS: Prothrombin Time 11.3 sec (10.0-12.5)
[2024-01-05] MEDS ORDERED: RIVAROXABAN 10 MG TAB PO SCH ×2 (09:00)
[2024-01-05] MEDS: RIVAROXABAN 20 MG TAB PO SCH (09:19)
[2024-01-05] MEDS: ISOSORBIDE MONONITRATE ER 30 MG TAB.ER.24H PO SCH (09:20)
[2024-01-05] MEDS: DAPAGLIFLOZIN PROPANEDIOL 10 MG TABLET PO SCH (09:20)
[2024-01-05] MEDS: METOPROLOL SUCCINATE (ER) 25 MG TAB.ER.24H PO SCH (09:20)
[2024-01-05] MEDS: ASPIRIN 81 MG PO SCH (09:20)
[2024-01-05] MEDS: PANTOPRAZOLE 40 MG TABLET PO SCH (09:20)
--- NOTE | 2024-01-05 10:17 | P.CRDCN ---
History of Present Illness Consult date: 01/05/24 Consult reason: congestive heart failure History of present illness: This is a 73-year-old male with past medical history of CVA (03/30/2023) on X arelto and multiple TIAs most recently in November 2023, seizure disorder, history of DVT, carotid artery disease status post right ICA endarterectomy with patch angioplasty in March 2023 and reported left CEA 6 years ago, hypertension, hyperlipidemia, hepatitis C, coronary artery disease with PCI in 2011, active tobacco use and dependence. We have been asked to evaluate the patient for CHF. Patient was brought into the hospital due to difficulty in breathing and hypoxia with pulse ox 70%. Patient states that he passed out yesterday not really sure why he is here. He states he has shortness of breath with activity. He denies any lower extremity edema. No palpitations, no dizziness. He denies having history of atrial fibrillation. He is not normally active since his strokes. No nausea or vomiting. No diarrhea or abdominal pain. He does not drink very much caffeine. No alcohol use. Patient is an active smoker of 2 packs/day. Regarding cardiac history, patient had a stent placed in 2011 and had a air dispatcher in [place] at the time but has not followed up. He denies having a lung doctor. Patient has been started on IV Lasix 40 mg every 12 hours. Patient is seen today in the emergency center waiting for bed on the cardiac stepdown unit. EKG: Sinus rhythm [address]-T wave changes. Chest x-ray: Pulmonary edema. Correlate for congestive heart failure. CT brain: Age-related atrophy and chronic small vessel ischemic change without acute intracranial process. Laboratory studies: WBC 13.2, hemoglobin 9.2. Potassium 4.7, BUN 26 creatinine 1.03. Troponin 0.705, 0.54, 0.482. Magnesium 2.5. Lactic acid 1.6. AST 364, ALT 262, alkaline phosphatase 184. proBNP 11,000. Home cardiac medications: Aspirin 81 mg daily, atorvastatin 80 mg at bedtime, Imdur 30 mg daily, Toprol-XL 25 mg daily, Xarelto 10 mg daily. Event monitor 05/08/2023 revealed sinus rhythm with PVCs, often in bigeminal pattern. Short bursts of nonsustained V. tach. [place] performed 04/01/2023 revealed no cardiac source for CVA. Echocardiogram performed 04/18/2023 revealed EF 40 to 45%. Limited study. Review Of Systems: At the time of my exam: CONSTITUTIONAL: Denies fever or chills. HEENT: Denies blurred vision, vision changes, or eye pain. Denies hemoptysis CARDIOVASCULAR: Denies chest pain. Denies orthopnea. Denies PND. Denies palpitations RESPIRATORY: Reports dyspnea on exertion. Reports shortness of breath. GASTROINTESTINAL: Denies abdominal pain. Denies nausea or vomiting. HEMATOLOGIC: Denies bleeding disorders. GENITOURINARY: Denies any blood in urine. SKIN: Denies puritis. Denies rash. Physical examination: Gen: This is a 73-year-old male in no acute distress VS: reviewed, blood pressure 126/74, heart rate 73, pulse ox 97% on 8 L nasal cannula. HEENT: Head is atraumatic, normocephalic. Pupils equal, round. Sclerae is anicteric. NECK: Supple. No JVD. LUNGS: Decreased air exchange bilaterally. No intercostal retractions. HEART: Regular rate and rhythm. No murmur. ABDOMEN: Soft No tenderness. EXTREMITIES: No pedal edema. No calf tenderness. NEUROLOGICAL: Patient is awake, alert and oriented x3. Assessment: Flat troponins not indicative of acute coronary syndrome Shortness of breath secondary to acute systolic heart failure with possible component of acute COPD Elevated liver function test most likely due to liver congestion History of CVA and TIA's Seizure disorder Carotid artery disease status post endarterectomy bilaterally Hypertension Hyperlipidemia Coronary artery disease with previous PCI in 2012, no follow-up History of DVT Tobacco use and dependence Plan: Resume patient's home cardiac medications Increase Xarelto to 20 mg daily Start patient on Farxiga 10 mg daily Continue patient on IV Lasix 40 mg every 12 hours Monitor CORNELIA, daily weights, electrolytes and renal function Obtain 2-D echocardiogram and Doppler study to assess cardiac structure and function Smoking cessation. Patient will be provided [employer] quit line information at discharge. Request consult with pulmonary medicine for COPD Further recommendations to follow based upon clinical course Thank you kindly for this consultation. Nurse practitioner note has been reviewed, I agree with documented findings and plan of care. Patient was seen and examined. Past Medical History Past Medical History: Coronary Artery Disease (CAD), CVA/TIA, GERD/Reflux, Hyperlipidemia, Hypertension, Liver Disease, Myocardial Infarction ([place]), Vascular Disorder Additional Past Medical History / Comment(s): Patient states he was admitted to the hospital January after a fall with head injury/new onset seizures and was hospitalized at [facility] [place] in [place]. He was on life support and was extubated and had one more seizure. 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 Patient states he has Hepatitis C. Last Myocardial Infarction Date:: 2011 History of Any Multi-Drug Resistant Organisms: None Reported Past Surgical History: Heart Catheterization With Stent, Orthopedic Surgery Additional Past Surgical History / Comment(s): PCI with a total of 7 stents per pt, L caratid endartectomy, L shoulder surgery for injury, R knee/R hip/R elbow/R wrist ligament/tendon type surgeries injuries-has pins in hand, colonoscopy. Past Anesthesia/Blood Transfusion Reactions: No Reported Reaction Date of Last Stent Placement:: 2011 Past Psychological History: Anxiety Smoking Status: Current every day smoker Past Alcohol Use History: Occasional Past Drug Use History: Marijuana - Past Family History Father Family Medical History: CVA/TIA Additional Family Medical History / Comment(s): Father is from CVA. Pt states father from "stupidity." Mother Family Medical History: Diabetes Mellitus Additional Family Medical History / Comment(s): Mother from diabetes at the age of 52 yrs. Brother(s) Family Medical History: Diabetes Mellitus Additional Family Medical History / Comment(s): Brother at the age of 32 yrs from type 1 diabetes. Medications and Allergies Home Medications Medication Instructions Recorded Confirmed Type Isosorbide Mononitrate ER [Imdur] 30 mg PO DAILY 09/07/17 01/04/24 History Donepezil [Aricept] 10 mg PO HS 04/11/19 01/04/24 History Cyclobenzaprine [Flexeril] 10 mg PO HS 03/22/23 01/04/24 History Pantoprazole Sodium [Protonix] 20 mg PO BID 03/22/23 01/04/24 History oxyCODONE-APAP 10-325MG [Percocet 1 tab PO QID 03/22/23 01/04/24 History 10-325 mg] Atorvastatin [Lipitor] 80 mg PO HS #30 tab 04/06/23 01/04/24 Rx Lacosamide [Vimpat] 100 mg PO BID #60 tab 04/21/23 01/04/24 Rx Rivaroxaban [Xarelto] 10 mg PO DAILY #30 tab 04/21/23 01/04/24 Rx FLUoxetine HCL [PROzac] 20 mg PO W/LUNCH 11/27/23 01/04/24 History Fluticasone Nasal [place] [Flonase 1 spray EA NOSTRIL DAILY 11/27/23 01/04/24 History Nasal [place]] LORazepam [Ativan] 1 mg PO TID PRN 11/27/23 01/04/24 History Metoprolol Succinate (ER) [Toprol 25 mg PO DAILY 11/27/23 01/04/24 History XL] Montelukast [Singulair] 10 mg PO HS 11/27/23 01/04/24 History SUMAtriptan succinate 50 mg PO DAILY PRN 11/27/23 01/04/24 History traZODone HCL 100 mg PO HS 11/27/23 01/04/24 History Aspirin 81 mg PO DAILY #30 tab 12/02/23 01/04/24 Rx Cyanocobalamin [Vitamin B-12] 500 mcg PO WEEKLY #30 tablet 12/02/23 01/04/24 Rx Folic Acid 1 mg PO DAILY #30 tab 12/02/23 01/04/24 Rx Allergies Allergy/AdvReac Type Severity Reaction Status Date / Time alprazolam [From Xanax] Allergy Rash/Hives Verified 01/04/24 14:04 codeine Allergy Rash/Hives Verified 01/04/24 14:04 nicotine [From Nicoderm CQ] AdvReac Hallucinati Verified 01/04/24 14:04 ons zolpidem [From Ambien] AdvReac "salty" Verified 01/04/24 14:04 taste in mouth, numb mouth Physical Exam Vitals: Vital Signs Temp Pulse Resp BP Pulse Ox 01/05/24 04:15 73 20 126/74 97 01/05/24 01:00 89 20 167/102 95 01/04/24 23:38 75 18 148/115 94 L 01/04/24 22:32 71 20 138/80 93 L 01/04/24 19:27 65 26 H 115/72 96 01/04/24 17:20 80 18 150/98 96 01/04/24 15:32 82 18 127/90 90 L 01/04/24 14:30 95 01/04/24 14:11 66 18 152/94 97 01/04/24 12:38 71 18 133/82 95 01/04/24 12:35 72 01/04/24 12:27 22 01/04/24 12:24 74 22 144/92 96 01/04/24 12:15 76 01/04/24 11:59 73 18 91 L 01/04/24 11:40 86 L 01/04/24 11:32 98.2 F 82 22 153/81 80 L Intake and Output 01/04/24 01/05/24 01/05/24 22:59 06:59 14:59 Intake Total 70.333 Output Total 900 800 Balance -829.667 -800 Intake: Intake, IV Titration 70.333 Amount Heparin Sod,Pork in 0.45% 70.333 NaCl 25,000 unit In 0.45 % NaCl 1 250ml.bag @ 10. 021 UNITS/KG/HR 10 mls/hr IV .Q24H [facility] Rx#: [id number] Output: Urine 900 800 Other: # Voids 2 Results 01/05/24 06:21 01/04/24 11:57 Cardiac Enzymes 01/04/24 01/04/24 01/04/24 Range/Units 11:57 12:19 15:42 AST 364 H (17-59) U/L Troponin I 0.704 H* 0.540 H* (0.000-0.034) ng/mL 01/04/24 Range/Units 18:09 AST (17-59) U/L Troponin I 0.482 H* (0.000-0.034) ng/mL Coagulation 01/04/24 01/04/24 Range/Units 12:19 21:23 PT 12.5 (10.0-12.5) sec APTT 23.9 36.5 H (22.0-30.0) sec CBC 01/04/24 Range/Units 11:57 WBC 13.2 H (3.8-10.6) k/uL RBC 4.07 L (4.30-5.90) m/uL Hgb 11.2 L (13.0-17.5) gm/dL Hct 36.2 L (39.0-53.0) % Plt Count 260 (150-450) k/uL Comprehensive Metabolic Panel 01/04/24 Range/Units 11:57 Sodium 140 (137-145) mmol/L Potassium 4.7 (3.5-5.1) mmol/L Chloride 108 H (98-107) mmol/L Carbon Dioxide 24 (22-30) mmol/L BUN 26 H (9-20) mg/dL Creatinine 1.03 (0.66-1.25) mg/dL Glucose 114 H (74-99) mg/dL Calcium 8.6 (8.4-10.2) mg/dL AST 364 H (17-59) U/L ALT 262 H (4-49) U/L Alkaline Phosphatase 184 H (38-126) U/L Total Protein 6.3 (6.3-8.2) g/dL Albumin 3.6 (3.5-5.0) g/dL Current Medications Generic Name Dose Route Start Last Admin Trade Name Freq PRN Reason Stop Dose Admin Acetaminophen 650 mg 01/04/24 13:47 Acetaminophen Tab 325 Mg Tab PO Q6HR PRN Mild Pain or Fever > 100.5 Furosemide 40 mg 01/04/24 21:00 01/04/24 22:34 Furosemide 10 Mg/Ml 4 Ml Vial IV 40 mg Q12HR GERSON Administration Heparin Sodium (Porcine) 0 unit 01/04/24 13:03 01/04/24 22:42 Heparin Sodium 1,000 Un/Ml (10ml Vl) IV 2,494.75 unit PER PROTOCOL PRN Administration Low PTT Protocol Heparin Sodium/Sodium Chloride 250 mls @ 10 mls/hr 01/04/24 13:15 01/04/24 22:44 25,000 unit/ Sodium Chloride IV 12 units/kg/hr .Q24H GERSON 11.975 mls/hr Titration Protocol 10.021 UNITS/KG/HR Naloxone HCl 0.2 mg 01/04/24 13:47 Naloxone 0.4 Mg/Ml 1 Ml Vial IV Q2M PRN Opioid Reversal Intake and Output 01/04/24 01/05/24 01/05/24 22:59 06:59 14:59 Intake Total 70.333 Output Total 900 800 Balance -829.667 -800 Intake: Intake, IV Titration 70.333 Amount Heparin Sod,Pork in 0.45% 70.333 NaCl 25,000 unit In 0.45 % NaCl 1 250ml.bag @ 10. 021 UNITS/KG/HR 10 mls/hr IV .Q24H [facility] Rx#: [id number] Output: Urine 900 800 Other: # Voids 2 01/04/24 11:57 01/04/24 11:57
[2024-01-05] MEDS: LORazepam 1 MG TAB PO PRN (11:33)
[2024-01-05] MEDS: oxyCODONE-APAP 10-325MG 1 EACH TAB PO SCH (11:33)
[2024-01-05] MEDS ORDERED: SUMAtriptan succinate 50 MG TAB PO PRN (11:55)
--- NOTE | 2024-01-05 12:04 | P.HPIM ---
History of Present Illness Patient is 73-year-old male with known history of congestive heart failure with a EF of around 40 to 45% came in with complaints of shortness of breath orthopnea found to be in congestive heart failure with extensive bilateral edema on the x-ray with highly elevated BNP of 11,000, was started on IV Lasix patient takes oral Lasix at home patient is presently on 40 IV twice daily. Patient denies any chest pain. Patient was hypoxic. Patient does have history of COPD, continues to smoke and not willing to quit smoking patient had history of coronary artery disease with stents in 2011 patient is on Xarelto but as per the chart he is on this medication for CVA known his known history of atrial fibrillation. Patient does not have any fevers does not have any sputum production. Patient is on 6 L of oxygen does not use any oxygen at home REVIEW OF SYSTEMS: CONSTITUTIONAL: No fever, no malaise, no fatigue. HEENT: No recent visual problems or hearing problems. Denied any sore throat. CARDIOVASCULAR: No chest pain, no palpitations, no syncope. PULMONARY: no hemoptysis. GASTROINTESTINAL: No diarrhea, no nausea, no vomiting, no abdominal pain. NEUROLOGICAL: No headaches, no weakness, no numbness. HEMATOLOGICAL: Denies any bleeding or petechiae. GENITOURINARY: Denies any burning micturition, frequency, or urgency. MUSCULOSKELETAL/RHEUMATOLOGICAL: Denies any joint pain, swelling, or any muscle pain. ENDOCRINE: Denies any polyuria or polydipsia. The rest of the 14-point review of systems is negative. PHYSICAL EXAMINATION: GENERAL: The patient is alert and oriented x3, not in any acute distress. Well developed, well nourished. HEENT: Pupils are round and equally reacting to light. EOMI. No scleral icterus. No conjunctival pallor. Normocephalic, atraumatic. No pharyngeal erythema. No thyromegaly. CARDIOVASCULAR: S1 and S2 present. No murmurs, rubs, or gallops. PULMONARY: Chest is clear to auscultation, no wheezing or crackles. ABDOMEN: Soft, nontender, nondistended, normoactive bowel sounds. No palpable organomegaly. MUSCULOSKELETAL: No joint swelling or deformity. EXTREMITIES: No cyanosis, clubbing, or pedal edema. NEUROLOGICAL: Gross neurological examination did not reveal any focal deficits. SKIN: No rashes. Assessment and plan -Acute hypoxic respiratory failure secondary to congestive heart failure chronic systolic function with acute exacerbation continue with IV Lasix, close I's and O's monitoring. -Elevated troponins: Probably secondary to congestive heart failure and type II and non-ST elevation NH patient is presently on IV heparin cardiology evaluated the patient -Transaminitis secondary to hepatic congestion expected to improve with Lasix -Leukocytosis reactive -COPD without any acute exacerbation -Coronary disease -Gastroesophageal flux disease -Hypertension -Peripheral vascular disease -Chronic low back pain on stronger opioids for long time -Seizure disorder for which patient is on lacosamide -Problem mentioned chronic medical problems patient will be continued on appropriate home medications DVT prophylaxis: On IV heparin Past Medical History Past Medical History: Coronary Artery Disease (CAD), CVA/TIA, GERD/Reflux, Hyperlipidemia, Hypertension, Liver Disease, Myocardial Infarction ([place]), Vascular Disorder Additional Past Medical History / Comment(s): Patient states he was admitted to the hospital January after a fall with head injury/new onset seizures and was hospitalized at [facility] in [place]. He was on life support and was extubated and had one more seizure. 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 Patient states he has Hepatitis C. Last Myocardial Infarction Date:: 2011 History of Any Multi-Drug Resistant Organisms: None Reported Past Surgical History: Heart Catheterization With Stent, Orthopedic Surgery Additional Past Surgical History / Comment(s): PCI with a total of 7 stents per pt, L caratid endartectomy, L shoulder surgery for injury, R knee/R hip/R elbow/R wrist ligament/tendon type surgeries injuries-has pins in hand, colonoscopy. Past Anesthesia/Blood Transfusion Reactions: No Reported Reaction Date of Last Stent Placement:: 2011 Past Psychological History: Anxiety Additional Psychological History / Comment(s): Pt resides alone. He was to start with home care services, Smoking Status: Current every day smoker Past Alcohol Use History: Occasional Additional Past Alcohol Use History / Comment(s): Pt started smoking in 2-2 ppd. Past Drug Use History: Marijuana Additional Drug Use History / Comment(s): Patient smokes marijuana at times. Pt states history of ETOH abuse 10yrs ago. - Past Family History Father Family Medical History: CVA/TIA Additional Family Medical History / Comment(s): Father is from CVA. Pt states father from "stupidity." Mother Family Medical History: Diabetes Mellitus Additional Family Medical History / Comment(s): Mother from diabetes at the age of 52 yrs. Brother(s) Family Medical History: Diabetes Mellitus Additional Family Medical History / Comment(s): Brother at the age of 32 yrs from type 1 diabetes. Medications and Allergies Home Medications Medication Instructions Recorded Confirmed Type Isosorbide Mononitrate ER [Imdur] 30 mg PO DAILY 09/07/17 01/04/24 History Donepezil [Aricept] 10 mg PO HS 04/11/19 01/04/24 History Cyclobenzaprine [Flexeril] 10 mg PO HS 03/22/23 01/04/24 History Pantoprazole Sodium [Protonix] 20 mg PO BID 03/22/23 01/04/24 History oxyCODONE-APAP 10-325MG [Percocet 1 tab PO QID 03/22/23 01/04/24 History 10-325 mg] Atorvastatin [Lipitor] 80 mg PO HS #30 tab 04/06/23 01/04/24 Rx Lacosamide [Vimpat] 100 mg PO BID #60 tab 04/21/23 01/04/24 Rx Rivaroxaban [Xarelto] 10 mg PO DAILY #30 tab 04/21/23 01/04/24 Rx FLUoxetine HCL [PROzac] 20 mg PO W/LUNCH 11/27/23 01/04/24 History Fluticasone Nasal [place] [Flonase 1 spray EA NOSTRIL DAILY 11/27/23 01/04/24 History Nasal [place]] LORazepam [Ativan] 1 mg PO TID PRN 11/27/23 01/04/24 History Metoprolol Succinate (ER) [Toprol 25 mg PO DAILY 11/27/23 01/04/24 History XL] Montelukast [Singulair] 10 mg PO HS 11/27/23 01/04/24 History SUMAtriptan succinate 50 mg PO DAILY PRN 11/27/23 01/04/24 History traZODone HCL 100 mg PO HS 11/27/23 01/04/24 History Aspirin 81 mg PO DAILY #30 tab 12/02/23 01/04/24 Rx Cyanocobalamin [Vitamin B-12] 500 mcg PO WEEKLY #30 tablet 12/02/23 01/04/24 Rx Folic Acid 1 mg PO DAILY #30 tab 12/02/23 01/04/24 Rx Allergies Allergy/AdvReac Type Severity Reaction Status Date / Time alprazolam [From Xanax] Allergy Rash/Hives Verified 01/04/24 14:04 codeine Allergy Rash/Hives Verified 01/04/24 14:04 nicotine [From Nicoderm CQ] AdvReac Hallucinati Verified 01/04/24 14:04 ons zolpidem [From Ambien] AdvReac "salty" Verified 01/04/24 14:04 taste in mouth, numb mouth Physical Exam Vitals: Vital Signs Temp Pulse Pulse Resp BP BP Pulse Ox 01/05/24 11:29 71 18 156/87 95 01/05/24 10:31 97.8 F 78 18 154/87 94 L 01/05/24 10:30 95 01/05/24 09:14 97.8 F 76 19 154/87 97 01/05/24 07:52 96 01/05/24 04:15 73 20 126/74 97 01/05/24 01:00 89 20 167/102 95 01/04/24 23:38 75 18 148/115 94 L 01/04/24 22:32 71 20 138/80 93 L 01/04/24 19:27 65 26 H 115/72 96 01/04/24 17:20 80 18 150/98 96 01/04/24 15:32 82 18 127/90 90 L 01/04/24 14:30 95 01/04/24 14:11 66 18 152/94 97 01/04/24 12:38 71 18 133/82 95 01/04/24 12:35 72 01/04/24 12:27 22 01/04/24 12:24 74 22 144/92 96 01/04/24 12:15 76 Intake and Output 01/04/24 01/05/24 01/05/24 22:59 06:59 14:59 Intake Total 70.333 Output Total 900 800 Balance -829.667 -800 Intake: Intake, IV Titration 70.333 Amount Heparin Sod,Pork in 0.45% 70.333 NaCl 25,000 unit In 0.45 % NaCl 1 250ml.bag @ 10. 021 UNITS/KG/HR 10 mls/hr IV .Q24H [facility] Rx#: [id number] Output: Urine 900 800 Other: # Voids 2 Weight 99.79 kg Results CBC & Chem 7: 01/05/24 06:21 01/04/24 11:57 Labs: Abnormal Lab Results - Last 24 Hours (Table) 01/04/24 01/04/24 01/04/24 Range/Units 11:57 11:57 12:19 WBC 13.2 H (3.8-10.6) k/uL RBC 4.07 L (4.30-5.90) m/uL Hgb 11.2 L (13.0-17.5) gm/dL Hct 36.2 L (39.0-53.0) % MCHC 30.9 L (31.0-37.0) g/dL RDW 15.8 H (11.5-15.5) % Neutrophils # 10.6 H (1.3-7.7) k/uL Lymphocytes # (1.0-4.8) k/uL Monocytes # 1.2 H (0-1.0) k/uL INR 1.2 H (<1.2) APTT (22.0-30.0) sec VBG pH (7.31-7.41) Chloride 108 H (98-107) mmol/L BUN 26 H (9-20) mg/dL Glucose 114 H (74-99) mg/dL Magnesium 2.5 H (1.6-2.3) mg/dL AST 364 H (17-59) U/L ALT 262 H (4-49) U/L Alkaline Phosphatase 184 H (38-126) U/L Troponin I (0.000-0.034) ng/mL 01/04/24 01/04/24 01/04/24 Range/Units 12:19 12:20 15:42 WBC (3.8-10.6) k/uL RBC (4.30-5.90) m/uL Hgb (13.0-17.5) gm/dL Hct (39.0-53.0) % MCHC (31.0-37.0) g/dL RDW (11.5-15.5) % Neutrophils # (1.3-7.7) k/uL Lymphocytes # (1.0-4.8) k/uL Monocytes # (0-1.0) k/uL INR (<1.2) APTT (22.0-30.0) sec VBG pH 7.43 H (7.31-7.41) Chloride (98-107) mmol/L BUN (9-20) mg/dL Glucose (74-99) mg/dL Magnesium (1.6-2.3) mg/dL AST (17-59) U/L ALT (4-49) U/L Alkaline Phosphatase (38-126) U/L Troponin I 0.704 H* 0.540 H* (0.000-0.034) ng/mL 01/04/24 01/04/24 01/05/24 Range/Units 18:09 21:23 06:21 WBC 13.9 H (3.8-10.6) k/uL RBC 4.14 L (4.30-5.90) m/uL Hgb 11.4 L (13.0-17.5) gm/dL Hct 36.7 L (39.0-53.0) % MCHC (31.0-37.0) g/dL RDW 15.7 H (11.5-15.5) % Neutrophils # 12.4 H (1.3-7.7) k/uL Lymphocytes # 0.6 L (1.0-4.8) k/uL Monocytes # (0-1.0) k/uL INR (<1.2) APTT 36.5 H (22.0-30.0) sec VBG pH (7.31-7.41) Chloride (98-107) mmol/L BUN (9-20) mg/dL Glucose (74-99) mg/dL Magnesium (1.6-2.3) mg/dL AST (17-59) U/L ALT (4-49) U/L Alkaline Phosphatase (38-126) U/L Troponin I 0.482 H* (0.000-0.034) ng/mL 01/05/24 Range/Units 06:21 WBC (3.8-10.6) k/uL RBC (4.30-5.90) m/uL Hgb (13.0-17.5) gm/dL Hct (39.0-53.0) % MCHC (31.0-37.0) g/dL RDW (11.5-15.5) % Neutrophils # (1.3-7.7) k/uL Lymphocytes # (1.0-4.8) k/uL Monocytes # (0-1.0) k/uL INR (<1.2) APTT 35.5 H (22.0-30.0) sec VBG pH (7.31-7.41) Chloride (98-107) mmol/L BUN (9-20) mg/dL Glucose (74-99) mg/dL Magnesium (1.6-2.3) mg/dL AST (17-59) U/L ALT (4-49) U/L Alkaline Phosphatase (38-126) U/L Troponin I (0.000-0.034) ng/mL Thrombosis Risk Factor Assmnt - Choose All That Apply Any of the Below Risk Factors Present?: Yes Each Factor Represents 1 point: Abnormal pulmonary function (COPD), Obesity (BMI >25) Each Risk Factor Represents 3 Points: Age 75 years or older, History of DVT/PE Thrombosis Risk Factor Assessment Total Risk Factor Score: 8 Thrombosis Risk Factor Assessment Level: High Risk
[2024-01-05] MEDS: FLUoxetine HCL 20 MG CAP PO SCH (12:19)
[2024-01-05] MEDS: LACOSAMIDE 50 MG TABLET PO SCH (12:19)
[2024-01-05] MEDS: DONEPEZIL 10 MG TAB PO SCH (20:48)
[2024-01-05] MEDS: ATORVASTATIN 80 MG TAB PO SCH (20:48)
[2024-01-05] MEDS: traZODone HCL 100 MG TAB PO SCH (20:48)
[2024-01-05] MEDS: MONTELUKAST 10 MG TAB PO SCH (20:48)
--- NOTE | 2024-01-06 11:00 | P.PN ---
Subjective Progress Note Date: 01/06/24 Consult reason: congestive heart failure History of present illness: This is a 73-year-old male with past medical history of CVA (03/30/2023) on Xarelto and multiple TIAs most recently in November 2023, seizure disorder, history of DVT, carotid artery disease status post right ICA endarterectomy with patch angioplasty in March 2023 and reported left CEA 6 years ago, hypertension, hyperlipidemia, hepatitis C, coronary artery disease with PCI in 2011, active tobacco use and dependence. We have been asked to evaluate the patient for CHF. Patient was brought into the hospital due to difficulty in breathing and hypoxia with pulse ox 70%. Patient states that he passed out yesterday not really sure why he is here. He states he has shortness of breath with activity. He denies any lower extremity edema. No palpitations, no dizziness. He denies having history of atrial fibrillation. He is not normally active since his strokes. No nausea or vomiting. No diarrhea or abdominal pain. He does not drink very much caffeine. No alcohol use. Patient is an active smoker of 2 packs/day. Regarding cardiac history, patient had a stent placed in 2011 and had a mold laminator in [place] at the time but has not followed up. He denies having a lung doctor. Patient has been started on IV Lasix 40 mg every 12 hours. Patient is seen today in the emergency center waiting for bed on the cardiac stepdown unit. EKG: Sinus rhythm [address]-T wave changes. Chest x-ray: Pulmonary edema. Correlate for congestive heart failure. CT brain: Age-related atrophy and chronic small vessel ischemic change without acute intracranial process. Laboratory studies: WBC 13.2, hemoglobin 9.2. Potassium 4.7, BUN 26 creatinine 1.03. Troponin 0.705, 0.54, 0.482. Magnesium 2.5. Lactic acid 1.6. AST 364, ALT 262, alkaline phosphatase 184. proBNP 11,000. Home cardiac medications: Aspirin 81 mg daily, atorvastatin 80 mg at bedtime, Imdur 30 mg daily, Toprol-XL 25 mg daily, Xarelto 10 mg daily. Event monitor 05/08/2023 revealed sinus rhythm with PVCs, often in bigeminal pattern. Short bursts of nonsustained V. tach. [place] performed 04/01/2023 revealed no cardiac source for CVA. Echocardiogram performed 04/18/2023 revealed EF 40 to 45%. Limited study. 01/05 Patient denies any chest pain but has some pain in the right clavicle area. No palpitations no dizziness. He has been maintained on IV Lasix 40 mg every 12 hours. He has had a negative fluid balance. Weights do not appear to be accurate. Blood pressure 155/75, heart rate in the 60s, pulse ox 92% on 7 L high flow nasal cannula. Repeat blood work is not available at the time of this dictation. Echocardiogram is pending. Physical examination: Gen: This is a 73-year-old male in no acute distress VS: reviewed, blood pressure 126/74, heart rate 73, pulse ox 97% on 8 L nasal cannula. HEENT: Head is atraumatic, normocephalic. Pupils equal, round. Sclerae is anicteric. NECK: Supple. No JVD. LUNGS: Decreased air exchange bilaterally. No intercostal retractions. HEART: Regular rate and rhythm. No murmur. ABDOMEN: Soft No tenderness. EXTREMITIES: No pedal edema. No calf tenderness. NEUROLOGICAL: Patient is awake, alert and oriented x3. Assessment: Flat troponins not indicative of acute coronary syndrome, no coronary injury/ischemia Shortness of breath secondary to acute systolic heart failure with possible component of acute COPD Elevated liver function test most likely due to liver congestion History of CVA and TIA's Seizure disorder Carotid artery disease status post endarterectomy bilaterally Hypertension Hyperlipidemia Coronary artery disease with previous PCI in 2011, no follow-up History of DVT Tobacco use and dependence Plan: Continue patient's home cardiac medications Continue increased dose of Xarelto 20 mg daily Start patient on Farxiga 10 mg daily Transition IV Lasix to oral 40 mg twice daily Monitor CORNELIA, daily weights, electrolytes and renal function Obtain 2-D echocardiogram and Doppler study to assess cardiac structure and function Smoking cessation. Patient will be provided [employer] quit line information at discharge. Request consult with pulmonary medicine for COPD Further recommendations to follow based upon clinical course Nurse practitioner note has been reviewed, I agree with documented findings and plan of care. Patient was seen and examined. Objective - Vital Signs Vital signs: Vital Signs Temp 98.1 F 01/06/24 07:54 Pulse 66 01/06/24 08:00 Resp 20 01/06/24 08:00 BP 155/75 01/06/24 07:54 Pulse Ox 92 L 01/06/24 07:56 FiO2 Intake & Output 01/05/24 01/06/24 01/06/24 18:59 06:59 18:59 Intake Total 240 236 Output Total 600 400 Balance -600 240 -164 Weight 99.79 kg 71 kg Intake: Oral 240 236 Output: Urine 600 400 Other: Voiding Method External Catheter - Labs CBC & Chem 7: 01/05/24 06:21 01/04/24 11:57 Labs: Abnormal Lab Results - Last 24 Hours (Table) 01/05/24 Range/Units 06:21 Procalcitonin 0.60 H (0.02-0.09) ng/mL Microbiology - Last 24 Hours (Table) 01/04/24 12:20 Blood Culture - Preliminary Blood 01/04/24 11:57 Blood Culture - Preliminary Blood
[2024-01-06 11:09] LABS: HCT 37.8 % (39.0-53.0); HGB 11.6 gm/dL (13.0-17.5); Hypochromasia Slight; MCH 27.6 pg (25.0-35.0); MCHC 30.7 g/dL (31.0-37.0); MCV 89.9 fL (80.0-100.0); Platelet Count 329 k/uL (150-450); RDW 15.8 % (11.5-15.5); WBC 14.3 k/uL (3.8-10.6)
[2024-01-06 11:40] LABS: African American GFR (CKD) 70 (>60 ml/min/1.73 sqM); Anion Gap 6 mmol/L; Blood Urea Nitrogen 42 mg/dL (9-20); Calcium 8.3 mg/dL (8.4-10.2); Carbon Dioxide 31 mmol/L (22-30); Chloride 98 mmol/L (98-107); Glucose 133 mg/dL (74-99); Magnesium 2.1 mg/dL (1.6-2.3); Non-African American GFR(CKD) 61 (>60 ml/min/1.73 sqM); Potassium 3.4 mmol/L (3.5-5.1); Sodium 135 mmol/L (137-145)
[2024-01-06] MEDS: FLUTICASONE NASAL 50MCG/SPRAY 16GM BTL EA NOSTRIL SCH (12:28)
--- NOTE | 2024-01-06 13:37 | P.CNPUL ---
History of Present Illness Consult date: 01/06/24 Requesting physician: Domenic Montaño Reason for consult: dyspnea, COPD, other (Congestive heart failure) Chief complaint: Dizziness and lightheadedness History of present illness: This is a 73-year-old white male with history of CVA back in March 21, 2002 3, maintained on Xarelto, patient is also known to have history of seizure disorder, TIAs, DVT, carotid artery disease and previous right carotid endarterectomy. History of left carotid endarterectomy 6 years ago, hypertension dyslipidemia hepatitis C coronary artery disease and previous PCI in 2011, patient has been an active smoker since age 11. Patient presented to the ER with mostly 2 weeks history of lightheadedness and dizziness, and had an episode of syncope. Patient was noted to have difficulty breathing, and his O2 saturation was 70% on room air upon his initial presentation. Chest x-ray on admission clearly showed evidence of pulmonary edema, CT of the brain showed age-related atrophic changes and chronic small vessel disease changes no evidence of acute intracranial process at the time patient was seen by c ardiology yesterday, and it was felt that the patient had shortness of breath secondary to acute systolic congestive heart failure and felt there may be some component of acute COPD exacerbation. Patient has been improving with diuretics, he is also on bronchodilators, during my evaluation, patient had no symptoms of shortness of breath cough or wheezing no chest pain, he was mostly concerned about his chronic dizziness lightheadedness and some chronic right- sided weakness. Patient limps upon walking. Again his chest x-ray showed evidence of pulmonary edema. His CBC was relatively normal except for a slight leukocytosis with WBC count of 14.3, procalcitonin level was elevated at 0.60, although the patient had no symptoms to suggest clinically underlying pneumonia although based on the chest x-ray it is difficult to tell the chest x-ray findings are mostly findings of pulmonary edema. Patient is receiving Lasix at 40 mg IV push twice daily, follow-up chest x-ray is pending Review of Systems REVIEW OF SYSTEMS: CONSTITUTIONAL: Generalized weakness and dizziness lightheadedness EYES: Negative. ENT: Negative. CARDIAC: As noted in HPI PULMONARY: As noted in HPI GI: Negative. GENITOURINARY: Negative. MUSCULOSKELETAL: Right-sided weakness and lightheadedness SKIN: Negative. NEUROPSYCH: Negative. ENDOCRINE: Negative. HEMATOLOGIC: Negative. Past Medical History Past Medical History: Coronary Artery Disease (CAD), CVA/TIA, GERD/Reflux, Hyperlipidemia, Hypertension, Liver Disease, Myocardial Infarction (DC), Vascular Disorder Additional Past Medical History / Comment(s): Patient states he was admitted to the hospital January after a fall with head injury/new onset seizures and was [facility] in [place]. He was on life support and was extubated and had one more seizure. 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 Patient states he has Hepatitis C. Last Myocardial Infarction Date:: 2011 History of Any Multi-Drug Resistant Organisms: None Reported Past Surgical History: Heart Catheterization With Stent, Orthopedic Surgery Additional Past Surgical History / Comment(s): PCI with a total of 7 stents per pt, L caratid endartectomy, L shoulder surgery for injury, R knee/R hip/R elbow/R wrist ligament/tendon type surgeries injuries-has pins in hand, colonoscopy. Past Anesthesia/Blood Transfusion Reactions: No Reported Reaction Date of Last Stent Placement:: 2011 Past Psychological History: Anxiety Additional Psychological History / Comment(s): Pt resides alone. He was to start with home care services, Smoking Status: Current every day smoker Past Alcohol Use History: Occasional Additional Past Alcohol Use History / Comment(s): Pt started smoking in 1961-2 ppd. Past Drug Use History: Marijuana Additional Drug Use History / Comment(s): Patient smokes marijuana at times. Pt states history of ETOH abuse 10yrs ago. - Past Family History Father Family Medical History: CVA/TIA Additional Family Medical History / Comment(s): Father is from CVA. Pt states father from "stupidity." Mother Family Medical History: Diabetes Mellitus Additional Family Medical History / Comment(s): Mother from diabetes at the age of 52 yrs. Brother(s) Family Medical History: Diabetes Mellitus Additional Family Medical History / Comment(s): Brother at the age of 32 yrs from type 1 diabetes. Medications and Allergies Home Medications Medication Instructions Recorded Confirmed Type Isosorbide Mononitrate ER [Imdur] 30 mg PO DAILY 09/07/17 01/04/24 History Donepezil [Aricept] 10 mg PO HS 04/11/19 01/04/24 History Cyclobenzaprine [Flexeril] 10 mg PO HS 03/22/23 01/04/24 History Pantoprazole Sodium [Protonix] 20 mg PO BID 03/22/23 01/04/24 History oxyCODONE-APAP 10-325MG [Percocet 1 tab PO QID 03/22/23 01/04/24 History 10-325 mg] Atorvastatin [Lipitor] 80 mg PO HS #30 tab 04/06/23 01/04/24 Rx Lacosamide [Vimpat] 100 mg PO BID #60 tab 04/21/23 01/04/24 Rx Rivaroxaban [Xarelto] 10 mg PO DAILY #30 tab 04/21/23 01/04/24 Rx FLUoxetine HCL [PROzac] 20 mg PO W/LUNCH 11/27/23 01/04/24 History Fluticasone Nasal [place] [Flonase 1 spray EA NOSTRIL DAILY 11/27/23 01/04/24 History Nasal [place]] LORazepam [Ativan] 1 mg PO TID PRN 11/27/23 01/04/24 History Metoprolol Succinate (ER) [Toprol 25 mg PO DAILY 11/27/23 01/04/24 History XL] Montelukast [Singulair] 10 mg PO HS 11/27/23 01/04/24 History SUMAtriptan succinate 50 mg PO DAILY PRN 11/27/23 01/04/24 History traZODone HCL 100 mg PO HS 11/27/23 01/04/24 History Aspirin 81 mg PO DAILY #30 tab 12/02/23 01/04/24 Rx Cyanocobalamin [Vitamin B-12] 500 mcg PO WEEKLY #30 tablet 12/02/23 01/04/24 Rx Folic Acid 1 mg PO DAILY #30 tab 12/02/23 01/04/24 Rx Allergies Allergy/AdvReac Type Severity Reaction Status Date / Time alprazolam [From Xanax] Allergy Rash/Hives Verified 01/04/24 14:04 codeine Allergy Rash/Hives Verified 01/04/24 14:04 nicotine [From Nicoderm CQ] AdvReac Hallucinati Verified 01/04/24 14:04 ons zolpidem [From Ambien] AdvReac "salty" Verified 01/04/24 14:04 taste in mouth, numb mouth Physical Exam Vitals: Vital Signs Temp Pulse Resp BP Pulse Ox 01/06/24 11:45 64 20 134/81 92 L 01/06/24 08:00 66 20 01/06/24 07:56 92 L 01/06/24 07:54 98.1 F 66 20 155/75 93 L 01/06/24 04:00 97.9 F 71 20 145/85 95 01/06/24 00:00 97.9 F 75 18 125/72 95 01/05/24 20:00 97.8 F 70 18 131/72 97 01/05/24 16:00 97.7 F 65 18 132/79 96 Intake and Output 01/05/24 01/06/24 01/06/24 22:59 06:59 14:59 Intake Total 240 354 Output Total 800 Balance 240 -446 Intake: Oral 240 354 Output: Urine 800 Other: Voiding Method External Catheter Weight 71 kg General: Revealed a 73-year-old white male in no distress however patient is on 7 L nasal cannula with O2 sats of 92% Skin: Skin is warm and dry and no rashes or lesions are noted. Eye: Pupils are equal, round and reactive to light, extra-ocular movements are intact; there is normal conjunctiva bilaterally. Ears, nose, mouth and throat: There are moist mucous membranes and no oral lesions. Neck: The neck is supple, there is no tenderness or JVD. Cardiovascular: There is a regular rate and rhythm. No murmur, rub or gallop is appreciated. Respiratory: Diminished breath sound bilaterally crackles at the bases. No rhonchi no wheezes Gastrointestinal: Soft, non-distended, non-tender abdomen without masses or organomegaly noted. There is no rebound or guarding present. Bowel sounds are unremarkable. Back: There is no tenderness to palpation in the midline. There is no obvious deformity. Musculoskeletal: Normal ROM, no tenderness, There is no pedal edema. There is no calf tenderness or swelling. No cords were appreciated. Neurological: Alert and oriented x 3, very minimal weakness in the right upper extremity. 4/5. Psychiatric: Normal mood affect and no mental status examination Results - Laboratory Findings CBC and BMP: 01/06/24 10:52 01/06/24 10:52 PT/INR, D-dimer PT 11.3 sec (10.0-12.5) 01/05/24 06:21 INR 1.0 (<1.2) 01/05/24 06:21 Abnormal lab findings: Abnormal Labs 01/04/24 01/04/24 01/04/24 11:57 11:57 12:19 WBC 13.2 H RBC 4.07 L Hgb 11.2 L Hct 36.2 L MCHC 30.9 L RDW 15.8 H Neutrophils # 10.6 H Lymphocytes # Monocytes # 1.2 H INR 1.2 H APTT VBG pH Sodium Potassium Chloride 108 H Carbon Dioxide BUN 26 H Glucose 114 H Calcium Magnesium 2.5 H AST 364 H ALT 262 H Alkaline Phosphatase 184 H Troponin I Procalcitonin 01/04/24 01/04/24 01/04/24 12:19 12:20 15:42 WBC RBC Hgb Hct MCHC RDW Neutrophils # Lymphocytes # Monocytes # INR APTT VBG pH 7.43 H Sodium Potassium Chloride Carbon Dioxide BUN Glucose Calcium Magnesium AST ALT Alkaline Phosphatase Troponin I 0.704 H* 0.540 H* Procalcitonin 01/04/24 01/04/24 01/05/24 18:09 21:23 06:21 WBC 13.9 H RBC 4.14 L Hgb 11.4 L Hct 36.7 L MCHC RDW 15.7 H Neutrophils # 12.4 H Lymphocytes # 0.6 L Monocytes # INR APTT 36.5 H VBG pH Sodium Potassium Chloride Carbon Dioxide BUN Glucose Calcium Magnesium AST ALT Alkaline Phosphatase Troponin I 0.482 H* Procalcitonin 01/05/24 01/05/24 01/06/24 06:21 06:21 10:52 WBC 14.3 H RBC 4.20 L Hgb 11.6 L Hct 37.8 L MCHC 30.7 L RDW 15.8 H Neutrophils # Lymphocytes # Monocytes # INR APTT 35.5 H VBG pH Sodium Potassium Chloride Carbon Dioxide BUN Glucose Calcium Magnesium AST ALT Alkaline Phosphatase Troponin I Procalcitonin 0.60 H 01/06/24 10:52 WBC RBC Hgb Hct MCHC RDW Neutrophils # Lymphocytes # Monocytes # INR APTT VBG pH Sodium 135 L Potassium 3.4 L Chloride Carbon Dioxide 31 H BUN 42 H Glucose 133 H Calcium 8.3 L Magnesium AST ALT Alkaline Phosphatase Troponin I Procalcitonin - Diagnostic Findings Chest x-ray: image reviewed (As noted in HPI) Assessment and Plan Assessment: Impression: Acute hypoxic respiratory failure secondary to acute systolic congestive heart failure and secondary to underlying COPD. Strongly suspect underlying COPD but considering his smoking history since age 11. History of coronary artery disease, previous PCI in 2012 History of CVA and TIAs, and bilateral carotid endarterectomy Benign essential hypertension Dyslipidemia Tobacco dependence syndrome History of seizure disorder Acute transaminitis secondary to hepatic congestion from congestive heart failure History of GERD without esophagitis History of peripheral vessel occlusive disease Elevated procalcitonin but no clear-cut evidence of clinical infection. Hence recommend holding on antibiotics for now Recommendation: Continue diuretics Suggest adding DuoNeb updraft 4 times daily and as needed for his underlying COPD Continue Xarelto Follow-up chest x-ray to follow-up on his congestive heart failure and abnormal chest x-ray on admission Resume home meds including his aspirin and statin Continue beta-blockers Recommend repeat chest x-ray in a.m. Strict monitoring of I's and O's Will continue to follow Time with Patient: Greater than 30
--- NOTE | 2024-01-06 14:31 | CA ---
Transthoracic Echo Report Name: Gordo James Age: 73 Gender: M : 1950 Exam Date: 01/06/2024 09:49 Exam Location: [place] [facility] Ht (in): 70 Wt (lb): 220 Ordering Physician: Floyd Mccullough MD Attending/Referring Phys: [id number], Jamel Bond Analyst Jen Martinez RDCS Procedure CPT: Indications: chf Cardiac Hx: Technical Quality: Technically difficult study Contrast 1: Definity Total Dose (mL): 67 Contrast 2: Total Dose (mL): MEASUREMENTS (Male / Female) Normal Values 2D ECHO LV Diastolic Diameter PLAX 5.2 cm 4.2 - 5.9 / 3.9 - 5.3 cm LV Systolic Diameter PLAX 3.8 cm IVS Diastolic Thickness 1.4 cm 0.6 - 1.0 / 0.6 - 0.9 cm LVPW Diastolic Thickness 1.3 cm 0.6 - 1.0 / 0.6 - 0.9 cm LV Relative Wall Thickness 0.5 LV Diastolic Volume MOD BP 148.3 cm??? 67 - 155 / 56 - 104 cm??? LV Systolic Volume MOD BP 85.6 cm??? 22 - 58 / 19 - 49 cm??? LV Ejection Fraction MOD BP 42.3 % >= 55 % LV Cardiac Index MOD BP 1868.5 cm???/min???m??? LV Diastolic Volume MOD 4C 133.7 cm??? LV Systolic Volume MOD 4C 87.3 cm??? LV Ejection Fraction MOD 4C 34.7 % LV Cardiac Index MOD 4C 1383.0 cm???/min???m??? LV Diastolic Length 4C 8.4 cm LV Systolic Length 4C 7.2 cm LV Diastolic Volume MOD 2C 164.0 cm??? LV Systolic Volume MOD 2C 81.0 cm??? LV Ejection Fraction MOD 2C 50.6 % LV Cardiac Index MOD 2C 2473.1 cm???/min???m??? LV Diastolic Length 2C 8.5 cm LV Systolic Length 2C 7.0 cm LA Volume 132.9 cm??? 18 - 58 / 22 - 52 cm??? LA Volume Index 59.1 cm???/m??? 16 - 28 cm???/m??? M-MODE LV Diastolic Diameter MM 4.9 cm 4.2 - 5.9 / 3.9 - 5.3 cm IVS Diastolic Thickness MM 1.6 cm 0.6 - 1.0 / 0.6 - 0.9 cm LVPW Diastolic Thickness MM 1.8 cm 0.6 - 1.0 / 0.6 - 0.9 cm LV Relative Wall Thickness MM 0.7 0.24 - 0.42 / 0.22 - 0.42 LV Mass Index MM 168.0 g/m??? 49 - 115 / 43 - 95 g/m??? Aortic Root Diameter MM 3.8 cm LA Systolic Diameter MM 2.5 cm LA Ao Ratio MM 0.7 AV Cusp Separation MM 1.6 cm DOPPLER AV Peak Velocity 119.3 cm/s AV Peak Gradient 5.7 mmHg AV Mean Velocity 89.5 cm/s AV Mean Gradient 3.4 mmHg AV Velocity Time Integral 22.1 cm LVOT Peak Velocity 101.7 cm/s LVOT Peak Gradient 4.1 mmHg LVOT Velocity Time Integral 18.8 cm MV Area PHT 3.2 cm??? Mitral E Point Velocity 95.5 cm/s Mitral A Point Velocity 77.9 cm/s Mitral E to A Ratio 1.2 MV Deceleration Time 236.7 ms MV E' Velocity 6.3 cm/s Mitral E to MV E' Ratio 15.3 FINDINGS Left Ventricle Severely increased left ventricular mass. Severely increased left ventricular systolic volume. Moderately decreased left ventricular ejection fraction. Mildly increased left ventricular wall thickness. Left ventricular ejection fraction is estimated at 40-45 %. Grade 1 diastolic dysfunction. Reduced global left ventricular systolic function. Right Ventricle Normal right ventricular size and function. Right ventricular systolic pressure within normal limits. Right Atrium Normal right atrial size. Left Atrium Severely increased left atrial volume. Mildly increased left atrial area. Mitral Valve Structurally normal mitral valve. Mitral valve thickened. Moderate mitral annular calcification. Moderate mitral regurgitation. Aortic Valve Trileaflet aortic valve. No aortic valve stenosis or regurgitation. Tricuspid Valve Structurally normal tricuspid valve. Mild tricuspid regurgitation. Pulmonic Valve Structurally normal pulmonic valve. Pericardium No pericardial effusion. Aorta Normal size aortic root and proximal ascending aorta. CONCLUSIONS Technically difficult study for interpretation Impaired LV function with a EF between 45 to 50% Moderate mitral regurgitation Previewed by: Dr. Blu Bailey MD (Electronically Signed) Final Date: 06 January 2024 14:30
[2024-01-06] MEDS: FUROSEMIDE 40 MG TAB PO SCH (15:38)
--- NOTE | 2024-01-06 15:51 | P.PN ---
Subjective Progress Note Date: 01/06/24 Patient is 73-year-old male with known history of congestive heart failure with a EF of around 40 to 45% came in with complaints of shortness of breath orthopnea found to be in congestive heart failure with extensive bilateral edema on the x-ray with highly elevated BNP of 11,000, was started on IV Lasix patient takes oral Lasix at home patient is presently on 40 IV twice daily. Patient denies any chest pain. Patient was hypoxic. Patient does have history of COPD, continues to smoke and not willing to quit smoking patient had history of coronary artery disease with stents in 2011 patient is on Xarelto but as per the chart he is on this medication for CVA known his known history of atrial fibr illation. Patient does not have any fevers does not have any sputum production. Patient is on 6 L of oxygen does not use any oxygen at home 01-06-2024 Patient is seen in follow-up today continues on 6 L high flow oxygen and reports he does not wear any oxygen outpatient. Recommend weaning FiO2 as tolerated. Patient being followed by cardiology and continued on IV Lasix considering possibly transitioning to oral Lasix in the next day or so for continued CHF exacerbation. Patient's lower extremity edema has improved and patient reports to urinating. Patient reports he is incontinent and wearing a brief currently. Patient with generalized weakness will have PT/OT therapy evaluate the patient. Patient also with a known history of COPD and continued nicotine dependence discussed complete tobacco cessation and will continue on breathing treatments. Review of systems: Constitutional: No reports of fatigue, fever, or chills Cardiovascular: reports of intermittent periods of chest pain, denies palpitations Respiratory: reports of continued shortness of breath with minimal exertion GI: No reports of nausea, vomiting, or diarrhea, reports not much of an appetite : No reports of dysuria or retention Neurovascular: reports of generalized weakness All medications have been reviewed PHYSICAL EXAMINATION: GENERAL: The patient is alert and oriented x3, not in any acute distress. Well developed, thin built, emaciated, cachectic, ill-appearing HEENT: Pupils are round and equally reacting to light. EOMI. No scleral icterus. No conjunctival pallor. Normocephalic, atraumatic. No pharyngeal erythema. No thyromegaly. CARDIOVASCULAR: S1 and S2 muffled PULMONARY: Diminished breath sounds bilaterally with coarse scattered rhonchi and faint crackles noted at the bases ABDOMEN: Soft, thin, scaphoid nontender, nondistended, normoactive bowel sounds. No palpable organomegaly. MUSCULOSKELETAL: No joint swelling or deformity. EXTREMITIES: No cyanosis, clubbing, or pedal edema. Mild bilateral lower extremity edema, improved NEUROLOGICAL: Gross neurological examination did not reveal any focal deficits. Diffusely weak SKIN: No rashes. Assessment and plan -Acute hypoxic respiratory failure secondary to congestive heart failure chronic systolic function with acute exacerbation, continue with IV Lasix, close I's and O's monitoring. -Elevated troponins: Likely secondary to congestive heart failure and type II and non-ST elevation MD patient, continue IV heparin cardiology evaluated the patient -Transaminitis secondary to hepatic congestion expected to improve with Lasix -Leukocytosis reactive -COPD without any acute exacerbation -Coronary disease history -Gastroesophageal flux disease -Hypertension -Continued ongoing nicotine dependence -Peripheral vascular disease -Chronic low back pain on stronger opioids for long time -Seizure disorder for which patient is on lacosamide GI prophylaxis DVT prophylaxis, on IV heparin No code Plan: Cardiology following and patient is maintained on IV Lasix recommending to continue for another 24 hours with repeat labs and possibly transitioning to oral Lasix. Patient continues on 6 L of high flow nasal cannula and normally does not wear any oxygen outpatient. 2D echo is ordered and pending Recommend PT/OT therapy evaluation for generalized weakness Smoking cessation discussed Will follow-up with repeat labs and monitor kidney functions and electrolytes closely. Replace electrolytes per protocol The impression and plan of care has been dictated by Nadia Lopez, Nurse Practitioner as directed. Dr. Sabra MD I have performed a history and examination and MDM of this patient, discussed the same with the dictator, and agree with the dictator's assessment and plan as written ,documented as a scribe. Based on total visit time, I have performed more than 50% of the visit. Objective - Vital Signs Vital signs: Vital Signs Temp 98.1 F 01/06/24 07:54 Pulse 66 01/06/24 08:00 Resp 20 01/06/24 08:00 BP 155/75 01/06/24 07:54 Pulse Ox 92 L 01/06/24 07:56 FiO2 Intake & Output 01/05/24 01/06/24 01/06/24 18:59 06:59 18:59 Intake Total 240 236 Output Total 600 400 Balance -600 240 -164 Weight 99.79 kg 71 kg Intake: Oral 240 236 Output: Urine 600 400 Other: Voiding Method External Catheter - Labs CBC & Chem 7: 01/06/24 10:52 01/06/24 10:52 Labs: Abnormal Lab Results - Last 24 Hours (Table) 01/05/24 Range/Units 06:21 Procalcitonin 0.60 H (0.02-0.09) ng/mL Microbiology - Last 24 Hours (Table) 01/04/24 12:20 Blood Culture - Preliminary Blood 01/04/24 11:57 Blood Culture - Preliminary Blood
[2024-01-06] MEDS ORDERED: Potassium Replacement Protocol 1 EACH MISC MISCELLANE PRN (16:02)
[2024-01-06] MEDS: POTASSIUM CHLORIDE ER 20 MEQ TAB.ER PO SCH (18:00)
--- NOTE | 2024-01-06 18:06 | XR ---
EXAMINATION TYPE: XR spine complete AP and Lat DATE OF EXAM: 01/06/2024 5:29 PM CLINICAL INDICATION:Male, 73 years old with history of Back pain; PHH COMPARISON: None TECHNIQUE: XR spine complete AP and Lat views of the spine in Frontal and lateral projections. FINDINGS: There is indeterminate wedging of the L1 vertebrae with 25% height loss. There is scattered multileve l disk space narrowing without loss of vertebral body height. There is normal alignment of the thorac ic vertebral bodies. Scattered osteophyte formation along the anterior and lateral aspects of the janis tebral bodies. Neural foramen are patent given limitations of this exam. Spinal canal appears patent. IMPRESSION: 1. Indeterminate compression deformity of the L1 vertebrae with 25% loss. Correlate with back pain di slocation, consider MRI for evaluation of bony edema in the setting of acute compression fracture. 2. Iauu-wo-[id number] multilevel degeneration changes of the spine.
[2024-01-06] MEDS: CALCIUM CARBONATE 500 MG CHEWABLE PO PRN (22:30)
[2024-01-07] MEDS: ACETAMINOPHEN TAB 325 MG TAB PO PRN (00:17)
[2024-01-07] MEDS: CYCLOBENZAPRINE 5 MG TAB PO PRN (01:57)
--- NOTE | 2024-01-07 13:46 | P.PN ---
Subjective Progress Note Date: 01/07/24 Principal diagnosis: Acute hypoxic respiratory failure secondary to acute systolic congestive heart failure. With LV dysfunction and moderate mitral regurgitation This is a 73-year-old white male with history of CVA back in March 21, 2002 3, maintained on Xarelto, patient is also known to have history of seizure disorder, TIAs, DVT, carotid artery disease and previous right carotid endarterectomy. History of left carotid endarterectomy 6 years ago, hypertension dyslipidemia hepatitis C coronary artery disease and previous PCI in 2011, patient has been an active smoker since age 11. Patient presented to the ER with mostly 2 weeks history of lightheadedness and dizziness, and had an episode of syncope. Patient was noted to have difficulty breathing, and his O2 saturation was 70% on room air upon his initial presentation. Chest x-ray on admission clearly showed evidence of pulmonary edema, CT of the brain showed age-related atrophic changes and chronic small vessel disease changes no evidence of acute intracranial process at the time patient was seen by car diology yesterday, and it was felt that the patient had shortness of breath secondary to acute systolic congestive heart failure and felt there may be some component of acute COPD exacerbation. Patient has been improving with diuretics, he is also on bronchodilators, during my evaluation, patient had no symptoms of shortness of breath cough or wheezing no chest pain, he was mostly concerned about his chronic dizziness lightheadedness and some chronic right- sided weakness. Patient limps upon walking. Again his chest x-ray showed evidence of pulmonary edema. His CBC was relatively normal except for a slight leukocytosis with WBC count of 14.3, procalcitonin level was elevated at 0.60, although the patient had no symptoms to suggest clinically underlying pneumonia although based on the chest x-ray it is difficult to tell the chest x-ray findings are mostly findings of pulmonary edema. Patient is receiving Lasix at 40 mg IV push twice daily, follow-up chest x-ray is pending Patient was reevaluated today on 01/07/2024, patient is about the same. Not much of a change in the last 24 hours. Remains on 6 L nasal cannula, and O2 sats 94%. Remains on Lasix at 40 mg p.o. twice daily, follow-up chest x-ray to be done tomorrow, if no improvement patient needs to be on a higher dose of diuretics. Be decided upon in the next 24 hours. In the meantime the patient is still complaining of dizziness, lightheadedness, and complaining of generalized weakness and some shortness of breath. No fever no chills no hemoptysis no chest pain. Echocardiogram showed LV dysfunction/mild and showed moderate mitral regurgitation. Objective - Vital Signs Vital signs: Vital Signs Temp 98.0 F 01/07/24 08:13 Pulse 69 01/07/24 12:15 Resp 16 01/07/24 12:15 BP 122/75 01/07/24 12:15 Pulse Ox 94 L 01/07/24 12:15 FiO2 Intake & Output 01/06/24 01/07/24 01/07/24 18:59 06:59 18:59 Intake Total 576 550 240 Output Total 800 425 500 Balance -224 125 -260 Weight 71 kg Intake: Oral 576 550 240 Output: Urine 800 425 500 Other: Voiding Method External Catheter Bedside Commode Bedside Commode # Voids 1 3 - Exam General: Revealed a 73-year-old white male in no distress however patient is on 6 L nasal cannula Skin: Skin is warm and dry and no rashes or lesions are noted. Eye: Pupils are equal, round and reactive to light, extra-ocular movements are intact; there is normal conjunctiva bilaterally. Ears, nose, mouth and throat: There are moist mucous membranes and no oral lesions. Neck: The neck is supple, there is no tenderness or JVD. Cardiovascular: There is a regular rate and rhythm. No murmur, rub or gallop is appreciated. Respiratory: Diminished breath sound bilaterally crackles at the bases. No rhonchi no wheezes Gastrointestinal: Soft, non-distended, non-tender abdomen without masses or org anomegaly noted. There is no rebound or guarding present. Bowel sounds are unremarkable. Back: There is no tenderness to palpation in the midline. There is no obvious deformity. Musculoskeletal: Normal ROM, no tenderness, There is no pedal edema. There is no calf tenderness or swelling. No cords were appreciated. Neurological: Alert and oriented x 3, very minimal weakness in the right upper e xtremity. 4/5. Psychiatric: Normal mood affect and no mental status examination - Labs CBC & Chem 7: 01/06/24 10:52 01/07/24 08:27 Labs: Microbiology - Last 24 Hours (Table) 01/04/24 12:20 Blood Culture - Preliminary Blood 01/04/24 11:57 Blood Culture - Preliminary Blood Assessment and Plan Assessment: Impression: Acute hypoxic respiratory failure secondary to acute systolic congestive heart failure and secondary to underlying COPD. Strongly suspect underlying COPD but considering his smoking history since age 11. History of coronary artery disease, previous PCI in 2012 History of CVA and TIAs, and bilateral carotid endarterectomy Benign essential hypertension Dyslipidemia Tobacco dependence syndrome History of seizure disorder Acute transaminitis secondary to hepatic congestion from congestive heart failure History of GERD without esophagitis History of peripheral vessel occlusive disease Moderate mitral regurgitation Elevated procalcitonin but no clear-cut evidence of clinical infection. Hence recommend holding on antibiotics for now Recommendation: Reviewed the results of the echocardiogram. Continue diuretics, consider increasing the dose if no improvement noted on chest x-ray in the next 24 hours. Continue DuoNeb updraft 4 times daily and as needed for his underlying COPD Continue Xarelto Continue home meds including his aspirin and statin Continue beta-blockers Follow-up chest x-ray in a.m. Strict monitoring of I's and O's Will continue to follow Time with Patient: Less than 30
--- NOTE | 2024-01-07 15:46 | P.PN ---
Subjective Progress Note Date: 01/07/24 Consult reason: congestive heart failure History of present illness: This is a 73-year-old male with past medical history of CVA (03/30/2023) on Xarelto and multiple TIAs most recently in November 2023, seizure disorder, history of DVT, carotid artery disease status post right ICA endarterectomy with patch angioplasty in March 2023 and reported left CEA 6 years ago, hypertension, hyperlipidemia, hepatitis C, coronary artery disease with PCI in 2011, active tobacco use and dependence. We have been asked to evaluate the patient for CHF. Patient was brought into the hospital due to difficulty in breathing and hypoxia with pulse ox 70%. Patient states that he passed out yesterday not really sure why he is here. He states he has shortness of breath with activity. He denies any lower extremity edema. No palpitations, no dizziness. He denies having history of atrial fibrillation. He is not normally active since his strokes. No nausea or vomiting. No diarrhea or abdominal pain. He does not drink very much caffeine. No alcohol use. Patient is an active smoker of 2 packs/day. 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 He denies having a lung doctor. Patient has been started on IV Lasix 40 mg every 12 hours. Patient is seen today in the emergency center waiting for bed on the cardiac stepdown unit. EKG: Sinus rhythm [address]-T wave changes. Chest x-ray: Pulmonary edema. Correlate for congestive heart failure. CT brain: Age-related atrophy and chronic small vessel ischemic change without acute intracranial process. Laboratory studies: WBC 13.2, hemoglobin 9.2. Potassium 4.7, BUN 26 creatinine 1.03. Troponin 0.705, 0.54, 0.482. Magnesium 2.5. Lactic acid 1.6. AST 364, ALT 262, alkaline phosphatase 184. proBNP 11,000. Home cardiac medications: Aspirin 81 mg daily, atorvastatin 80 mg at bedtime, Imdur 30 mg daily, Toprol-XL 25 mg daily, Xarelto 10 mg daily. Event monitor 05/08/2023 revealed sinus rhythm with PVCs, often in bigeminal pattern. Short bursts of nonsustained V. tach. [place] performed 04/01/2023 revealed no cardiac source for CVA. Echocardiogram performed 04/18/2023 revealed EF 40 to 45%. Limited study. 01/05 Patient denies any chest pain but has some pain in the right clavicle area. No palpitations no dizziness. He has been maintained on IV Lasix 40 mg every 12 hours. He has had a negative fluid balance. Weights do not appear to be accurate. Blood pressure 155/75, heart rate in the 60s, pulse ox 92% on 7 L high flow nasal cannula. Repeat blood work is not available at the time of this dictation. Echocardiogram is pending. 01/06 Patient denies having any chest pain, chest pressure or chest tightness. His breathing is better. He still has some wheezing and cough with green sputum production. He is utilizing incentive spirometry. Blood pressure 122/75, heart rate 69, pulse ox 94% on high flow nasal cannula 6 L. Repeat potassium 4.2. Yesterday, IV Lasix was transitioned to oral, patient continued on Farxiga. Echocardiogram reveals EF of 45 to 50%, moderate mitral regurgitation. Physical examination: Gen: This is a 73-year-old male in no acute distress VS: reviewed HEENT: Head is atraumatic, normocephalic. Pupils equal, round. Sclerae is anicteric. NECK: Supple. No JVD. LUNGS: Decreased air exchange bilaterally. No intercostal retractions. HEART: Regular rate and rhythm. No murmur. ABDOMEN: Soft No tenderness. EXTREMITIES: No pedal edema. No calf tenderness. NEUROLOGICAL: Patient is awake, alert and oriented x3. Assessment: Flat troponins not indicative of acute coronary syndrome, no coronary injury/ischemia Shortness of breath secondary to acute systolic heart failure with possible component of acute COPD Elevated liver function test most likely due to liver congestion History of CVA and TIA's Seizure disorder Carotid artery disease status post endarterectomy bilaterally Hypertension Hyperlipidemia Coronary artery disease with previous PCI in 2012, no follow-up History of DVT Tobacco use and dependence Plan: Continue patient's home cardiac medications Continue increased dose of Xarelto 20 mg daily Continue patient on Farxiga 10 mg daily, Lasix 40 mg oral twice daily Monitor CORNELIA, daily weights, electrolytes and renal function Smoking cessation. Patient will be provided [employer] quit line information at discharge. Further recommendations to follow based upon clinical course Nurse practitioner note has been reviewed, I agree with documented findings and plan of care. Patient was seen and examined. Objective - Vital Signs Vital signs: Vital Signs Temp 98.0 F 01/07/24 08:13 Pulse 69 01/07/24 12:15 Resp 16 01/07/24 12:15 BP 122/75 01/07/24 12:15 Pulse Ox 94 L 01/07/24 12:15 FiO2 Intake & Output 01/06/24 01/07/24 01/07/24 18:59 06:59 18:59 Intake Total 576 550 240 Output Total 800 425 500 Balance -224 125 -260 Weight 71 kg Intake: Oral 576 550 240 Output: Urine 800 425 500 Other: Voiding Method External Catheter Bedside Commode # Voids 1 3 - Labs CBC & Chem 7: 01/06/24 10:52 01/07/24 08:27 Labs: Microbiology - Last 24 Hours (Table) 01/04/24 12:20 Blood Culture - Preliminary Blood 01/04/24 11:57 Blood Culture - Preliminary Blood
--- NOTE | 2024-01-07 16:22 | P.PN ---
Progress Note - Text Progress Note Date: 01/07/24 Patient is 73-year-old male with known history of congestive heart failure with a EF of around 40 to 45% came in with complaints of shortness of breath orthopnea found to be in congestive heart failure with extensive bilateral edema on the x-ray with highly elevated BNP of 11,000, was started on IV Lasix patient takes oral Lasix at home patient is presently on 40 IV twice daily. Patient denies any chest pain. Patient was hypoxic. Patient does have history of COPD, continues to smoke and not willing to quit smoking patient had history of coronary artery disease with stents in 2011 patient is on Xarelto but as per the chart he is on this medication for CVA known his known history of atrial fibrillation. Patient does not have any fevers does not have any sputum production. Patient is on 6 L of oxygen does not use any oxygen at home 01-06-2024 Patient is seen in follow-up today continues on 6 L high flow oxygen and reports he does not wear any oxygen outpatient. Recommend weaning FiO2 as tolerated. Patient being followed by cardiology and continued on IV Lasix considering poss ibly transitioning to oral Lasix in the next day or so for continued CHF exacerbation. Patient's lower extremity edema has improved and patient reports to urinating. Patient reports he is incontinent and wearing a brief currently. Patient with generalized weakness will have PT/OT therapy evaluate the patient. Patient also with a known history of COPD and continued nicotine dependence discussed complete tobacco cessation and will continue on breathing treatments. January 06: Decreased appetite. Up in chair. 6 L nasal cannula. Some shortness of breath. No edema. Add DuoNeb 4 times daily and Pulmicort for COPD exacerbation. Repeat chest x-ray in a.m. Active Medications Acetaminophen (Acetaminophen Tab 325 Mg Tab) 650 mg PO Q6HR PRN PRN Reason: Mild Pain or Fever > 100.5 Last Admin: 01/07/24 05:36 Dose: 650 mg Aspirin (Aspirin 81 Mg) 81 mg PO DAILY [facility] Last Admin: 01/07/24 08:24 Dose: 81 mg Atorvastatin Calcium (Atorvastatin 80 Mg Tab) 80 mg PO HS [facility] Last Admin: 01/06/24 20:03 Dose: 80 mg Calcium Carbonate/Glycine (Calcium Carbonate 500 Mg Chewable) 1,000 mg PO QID PRN PRN Reason: Heartburn Last Admin: 01/06/24 22:30 Dose: 1,000 mg Cyclobenzaprine HCl (Cyclobenzaprine 5 Mg Tab) 5 mg PO HS PRN PRN Reason: Mild Spasms Last Admin: 01/07/24 01:57 Dose: 5 mg Dapagliflozin (Dapagliflozin Propanediol 10 Mg Tablet) 10 mg PO DAILY [facility] Last Admin: 01/07/24 08:24 Dose: 10 mg Donepezil HCl (Donepezil 10 Mg Tab) 10 mg PO HS [facility] Last Admin: 01/06/24 20:03 Dose: 10 mg Fluoxetine HCl (Fluoxetine Hcl 20 Mg Cap) 20 mg PO W/LUNCH [facility] Last Admin: 01/07/24 12:16 Dose: 20 mg Fluticasone Propionate (Fluticasone 50mcg/[place] Nasal 16gm) 1 spray EA NOSTRIL DAILY [facility] Last Admin: 01/07/24 08:24 Dose: 1 spray Furosemide (Furosemide 40 Mg Tab) 40 mg PO BID@0900,1600 [facility] Last Admin: 01/07/24 08:24 Dose: 40 mg Isosorbide Mononitrate (Isosorbide Mononitrate Er 30 Mg Tab.Er.24h) 30 mg PO DAILY [facility] Last Admin: 01/07/24 08:24 Dose: 30 mg Lacosamide (Lacosamide 50 Mg Tablet) 100 mg PO BID [facility] Last Admin: 01/07/24 08:23 Dose: 100 mg Lorazepam (Lorazepam 1 Mg Tab) 1 mg PO TID PRN PRN Reason: Anxiety Last Admin: 01/07/24 12:17 Dose: 1 mg Metoprolol Succinate (Metoprolol Succinate (Er) 25 Mg Tab.Er.24h) 25 mg PO DAILY [facility] Last Admin: 01/07/24 08:24 Dose: 25 mg Miscellaneous Information (Potassium Replacement Protocol 1 Each Misc) 1 each MISCELLANE DAILY PRN; Protocol PRN Reason: Per Protocol Montelukast Sodium (Montelukast 10 Mg Tab) 10 mg PO HS [facility] Last Admin: 01/06/24 20:03 Dose: 10 mg Naloxone HCl (Naloxone 0.4 Mg/Ml 1 Ml Vial) 0.2 mg IV Q2M PRN PRN Reason: Opioid Reversal Oxycodone/Acetaminophen (Oxycodone-Apap 10-325mg 1 Each Tab) 1 each PO QID [facility] Last Admin: 01/07/24 12:16 Dose: 1 each Pantoprazole Sodium (Pantoprazole 40 Mg Tablet) 40 mg PO BID [facility] Last Admin: 01/07/24 08:24 Dose: 40 mg Rivaroxaban (Rivaroxaban 20 Mg Tab) 20 mg PO DAILY [facility]; Protocol Last Admin: 01/07/24 08:24 Dose: 20 mg Trazodone HCl (Trazodone Hcl 100 Mg Tab) 100 mg PO HS [facility] Last Admin: 01/06/24 20:02 Dose: 100 mg Past medical history to include: Concussion, possible tonic-clonic seizure, coronary artery disease with stent, GERD, hyperlipidemia, essential hypertension, primary osteoarthritis, nicotine dependence.. Stroke March 2023-with residual right-sided weakness and weakness right side of the face Social history: Lives alone. Smokes a pack a day-several years. Physical examination: VITAL SIGNS: 98, 69, 16, 122/75, 94% on 6 L GENERAL: In chair, tired EYES: Pupils equal. Conjunctiva normal. HEENT: External appearance of nose and ears normal, oral cavity grossly normal. NECK: JVD not raised; masses not palpable. HEART: First and second heart sounds are normal; no edema. Decreased dorsalis pedis. LUNGS: Respiratory rate normal; some basilar crackles. ABDOMEN: Soft, nontender, liver spleen not palpable, no masses palpable. PSYCH: AO X 3, mood affect normal NEUROLOGICAL: Cranial nerves grossly intact. Moving all 4 limbs. Power on the right side 4/5. Flattening of right nasolabial fold. MUSCULAR skeletal: Evidence of OA. INVESTIGATIONS, reviewed in the clinical context: January 05: White count 14.3 hemoglobin 11.6 platelets 329 sodium 135 creatinine 1.18 2D echocardiogram: EF 40 to 45%. Moderate mitral regurgitation. Assessment and plan: -Acute hypoxic respiratory failure secondary to congestive heart failure: Slow to respond Currently on 6 L nasal cannula -Acute on chronic congestive heart exacerbation from systolic dysfunction EF 40 to 45% P.o. Lasix 40 mg twice daily -Elevated troponins: Likely secondary to congestive heart failure Followed by cardiology -Transaminitis secondary to hepatic congestion expected to improve with Lasix -Acute COPD exacerbationsmoker: Slow to respond DuoNeb 4 times daily. Pulmicort 1 mg twice daily -Continued ongoing nicotine dependence -Peripheral vascular disease Aspirin -Chronic low back pain/osteoarthritis on stronger opioids for long time -Chronic tonic-clonic seizures. Vimpat 100 mg twice a day. Outpatient: Neurologist Dr. Bryan -Prior history of aggressive behavior likely could be manifestation of temporal lobe seizure.: -History: Subacute stroke March 2023 Involving the right thalamus and the left parietal/occipital region. Status post TPA. Aspirin. Brillinta [place] : Negative for shunting or embolic source. Follow-up with Dr. Flaherty -Right endarterectomy patch done by Dr. Agustina Romero April 03. -Possible atrial fibrillation in 2022 at [facility] As per the patient. Xarelto -Vitamin B12 and folate deficiency B12 supplementation and folic acid supplement -Chronic nicotine dependence cigarette smoker -Coronary artery disease with stent Aspirin. -GERD PPI -Hyperlipidemia Lipitor 80 mg daily at bedtime. -Essential hypertension Toprol-XL 25 mg a day -No code Discussed with patient
[2024-01-07] MEDS: IPRATROPIUM-ALBUTEROL 3 ML NEB INHALATION SCH (21:13)
[2024-01-07] MEDS: BUDESONIDE 1 MG/2 ML NEBU INHALATION SCH (21:14)
[2024-01-08] MEDS: LOSARTAN 25 MG TAB PO SCH (12:09)
--- NOTE | 2024-01-08 12:57 | P.PN ---
Subjective Progress Note Date: 01/08/24 Principal diagnosis: Acute hypoxic respiratory failure secondary to acute systolic congestive heart failure. With LV dysfunction and moderate mitral regurgitation This is a 73-year-old white male with history of CVA back in March 21, 2002 3, maintained on Xarelto, patient is also known to have history of seizure disorder, TIAs, DVT, carotid artery disease and previous right carotid endarterectomy. History of left carotid endarterectomy 6 years ago, hypertension dyslipidemia hepatitis C coronary artery disease and previous PCI in 2011, patient has been an active smoker since age 11. Patient presented to the ER with mostly 2 weeks history of lightheadedness and dizziness, and had an episode of syncope. Patient was noted to have difficulty breathing, and his O2 saturation was 70% on room air upon his initial presentation. Chest x-ray on admission clearly showed evidence of pulmonary edema, CT of the brain showed age-related atrophic changes and chronic small vessel disease changes no evidence of acute intracranial process at the time patient was seen by car diology yesterday, and it was felt that the patient had shortness of breath secondary to acute systolic congestive heart failure and felt there may be some component of acute COPD exacerbation. Patient has been improving with diuretics, he is also on bronchodilators, during my evaluation, patient had no symptoms of shortness of breath cough or wheezing no chest pain, he was mostly concerned about his chronic dizziness lightheadedness and some chronic right- sided weakness. Patient limps upon walking. Again his chest x-ray showed evidence of pulmonary edema. His CBC was relatively normal except for a slight leukocytosis with WBC count of 14.3, procalcitonin level was elevated at 0.60, although the patient had no symptoms to suggest clinically underlying pneumonia although based on the chest x-ray it is difficult to tell the chest x-ray findings are mostly findings of pulmonary edema. Patient is receiving Lasix at 40 mg IV push twice daily, follow-up chest x-ray is pending Patient was reevaluated today on 01/07/2024, patient is about the same. Not much of a change in the last 24 hours. Remains on 6 L nasal cannula, and O2 sats 94%. Remains on Lasix at 40 mg p.o. twice daily, follow-up chest x-ray to be done tomorrow, if no improvement patient needs to be on a higher dose of diuretics. Be decided upon in the next 24 hours. In the meantime the patient is still complaining of dizziness, lightheadedness, and complaining of generalized weakness and some shortness of breath. No fever no chills no hemoptysis no chest pain. Echocardiogram showed LV dysfunction/mild and showed moderate mitral regurgitation. Reevaluated today on 01/08/2024, slight improvement in his overall congestive heart failure status, he is now on 4 L nasal cannula with O2 sats of 97%, patient feels a bit better, but not by much. Remains generally weak, remains lightheaded, patient remains on diuretics, and noted to have minimal negative fluid balance, may require higher dose of diuretics. Chest x-ray continues to show evidence of pulmonary edema. His electrolytes are normal BUN is 42 creat inine 1.18 WBC count is 14.3 hemoglobin is 11.6 Objective - Vital Signs Vital signs: Vital Signs Temp 97.8 F 01/08/24 08:22 Pulse 74 01/08/24 08:22 Resp 16 01/08/24 08:22 BP 165/78 01/08/24 08:22 Pulse Ox 97 01/08/24 08:22 FiO2 Intake & Output 01/07/24 01/08/24 01/08/24 18:59 06:59 18:59 Intake Total 702 222 Output Total 500 300 Balance 202 -300 222 Intake: Oral 702 222 Output: Urine 500 300 Other: Voiding Method Bedside Commode Toilet Toilet Bedside Commode Bedside Commode Urinal Urinal # Voids 2 1 # Bowel Movements 1 - Exam General: Revealed a 73-year-old white male in no distress however patient is on 4 L nasal cannula with O2 sat of 97% Skin: Skin is warm and dry and no rashes or lesions are noted. Eye: Pupils are equal, round and reactive to light, extra-ocular movements are intact; there is normal conjunctiva bilaterally. Ears, nose, mouth and throat: There are moist mucous membranes and no oral lesions. Neck: The neck is supple, there is no tenderness or JVD. Cardiovascular: There is a regular rate and rhythm. No murmur, rub or gallop is appreciated. Respiratory: Diminished breath sound bilaterally crackles at the bases. No rhonchi no wheezes Gastrointestinal: Soft, non-distended, non-tender abdomen without masses or organomegaly noted. There is no rebound or guarding present. Bowel sounds are unremarkable. Back: There is no tenderness to palpation in the midline. There is no obvious deformity. Musculoskeletal: Normal ROM, no tenderness, There is no pedal edema. There is no calf tenderness or swelling. No cords were appreciated. Neurological: Alert and oriented x 3, very minimal weakness in the right upper extremity. 4/5. Psychiatric: Normal mood affect and no mental status examination - Labs CBC & Chem 7: 01/06/24 10:52 01/07/24 08:27 Labs: Microbiology - Last 24 Hours (Table) 01/04/24 12:20 Blood Culture - Preliminary Blood 01/04/24 11:57 Blood Culture - Preliminary Blood Assessment and Plan Assessment: Impression: Acute hypoxic respiratory failure secondary to acute systolic congestive heart failure and secondary to underlying COPD. Strongly suspect underlying COPD but considering his smoking history since age 11. History of coronary artery disease, previous PCI in 2011 History of CVA and TIAs, and bilateral carotid endarterectomy Benign essential hypertension Dyslipidemia Tobacco dependence syndrome History of seizure disorder Acute transaminitis secondary to hepatic congestion from congestive heart failure History of GERD without esophagitis History of peripheral vessel occlusive disease Moderate mitral regurgitation Elevated procalcitonin but no clear-cut evidence of clinical infection. Hence recommend holding on antibiotics for now Recommendation: Continue diuretics, suggest increasing the dose Continue DuoNeb updraft 4 times daily and as needed for his underlying COPD Continue Xarelto Continue aspirin and statin Continue beta-blockers Chest x-ray was reviewed, improving but continues to have congestive heart failure Strict monitoring of I's and O's Will continue to follow Time with Patient: Less than 30
--- NOTE | 2024-01-08 13:06 | P.PN ---
Subjective Progress Note Date: 01/08/24 Consult reason: congestive heart failure History of present illness: This is a 73-year-old male with past medical history of CVA (03/30/2023) on Xarelto and multiple TIAs most recently in November 2023, seizure disorder, history of DVT, carotid artery disease status post right ICA endarterectomy with patch angioplasty in March 2023 and reported left CEA 6 years ago, hypertension, hyperlipidemia, hepatitis C, coronary artery disease with PCI in 2011, active tobacco use and dependence. We have been asked to evaluate the patient for CHF. Patient was brought into the hospital due to difficulty in breathing and hypoxia with pulse ox 70%. Patient states that he passed out yesterday not really sure why he is here. He states he has shortness of breath with activity. He denies any lower extremity edema. No palpitations, no dizziness. He denies having history of atrial fibrillation. He is not normally active since his strokes. No nausea or vomiting. No diarrhea or abdominal pain. He does not drink very much caffeine. No alcohol use. Patient is an active smoker of 2 packs/day. Regarding cardiac history, patient had a stent placed in 2011 and had a signaling design engineer in [place] at the time but has not followed up. He denies having a lung doctor. Patient has been started on IV Lasix 40 mg every 12 hours. Patient is seen today in the emergency center waiting for bed on the cardiac stepdown unit. EKG: Sinus rhythm [address]-T wave changes. Chest x-ray: Pulmonary edema. Correlate for congestive heart failure. CT brain: Age-related atrophy and chronic small vessel ischemic change without acute intracranial process. Laboratory studies: WBC 13.2, hemoglobin 9.2. Potassium 4.7, BUN 26 creatinine 1.03. Troponin 0.705, 0.54, 0.482. Magnesium 2.5. Lactic acid 1.6. AST 364, ALT 262, alkaline phosphatase 184. proBNP 11,000. Home cardiac medications: Aspirin 81 mg daily, atorvastatin 80 mg at bedtime, Imdur 30 mg daily, Toprol-XL 25 mg daily, Xarelto 10 mg daily. Event monitor 05/08/2023 revealed sinus rhythm with PVCs, often in bigeminal pattern. Short bursts of nonsustained V. tach. [place] performed 04/01/2023 revealed no cardiac source for CVA. Echocardiogram performed 04/18/2023 revealed EF 40 to 45%. Limited study. 01/05 Patient denies any chest pain but has some pain in the right clavicle area. No palpitations no dizziness. He has been maintained on IV Lasix 40 mg every 12 hours. He has had a negative fluid balance. Weights do not appear to be accurate. Blood pressure 155/75, heart rate in the 60s, pulse ox 92% on 7 L high flow nasal cannula. Repeat blood work is not available at the time of this dictation. Echocardiogram is pending. 01/06 Patient denies having any chest pain, chest pressure or chest tightness. His breathing is better. He still has some wheezing and cough with green sputum p roduction. He is utilizing incentive spirometry. Blood pressure 122/75, heart rate 69, pulse ox 94% on high flow nasal cannula 6 L. Repeat potassium 4.2. Yesterday, IV Lasix was transitioned to oral, patient continued on Farxiga. Echocardiogram reveals EF of 45 to 50%, moderate mitral regurgitation. 01/07 Patient states that he is still having some shortness of breath but improving. Patient continues to have cough with green sputum production and wheezing. He denies having any chest pain and nausea. Blood pressure 165/78, heart rate 74, pulse ox 97% on 4 L nasal cannula. Patient is currently maintained on oral cardiac medications. Physical examination: Gen: This is a 73-year-old male in no acute distress VS: reviewed HEENT: Head is atraumatic, normocephalic. Pupils equal, round. Sclerae is anicteric. NECK: Supple. No JVD. LUNGS: Clear to auscultation bilaterally. No intercostal retractions. HEART: Regular rate and rhythm. No murmur. ABDOMEN: Soft No tenderness. EXTREMITIES: No pedal edema. No calf tenderness. NEUROLOGICAL: Patient is awake, alert and oriented x3. Assessment: Flat troponins not indicative of acute coronary syndrome, no coronary injury/ischemia Shortness of breath secondary to acute systolic heart failure with possible component of acute COPD Elevated liver function test most likely due to liver congestion History of CVA and TIA's Seizure disorder Carotid artery disease status post endarterectomy bilaterally Hypertension Hyperlipidemia Coronary artery disease with previous PCI in 2011, no follow-up History of DVT Tobacco use and dependence Plan: Continue patient's home cardiac medications Continue increased dose of Xarelto 20 mg daily Continue patient on Farxiga 10 mg daily, Lasix 40 mg oral twice daily Monitor CORNELIA, daily weights, electrolytes and renal function Smoking cessation. Patient will be provided listedplaces quit line information at discharge. Further recommendations to follow based upon clinical course Nurse practitioner note has been reviewed, I agree with documented findings and plan of care. Patient was seen and examined. Objective - Vital Signs Vital signs: Vital Signs Temp 97.8 F 01/08/24 08:22 Pulse 74 01/08/24 08:22 Resp 16 01/08/24 08:22 BP 165/78 01/08/24 08:22 Pulse Ox 97 01/08/24 08:22 FiO2 Intake & Output 01/07/24 01/08/24 01/08/24 18:59 06:59 18:59 Intake Total 702 222 Output Total 500 300 Balance 202 -300 222 Intake: Oral 702 222 Output: Urine 500 300 Other: Voiding Method Bedside Commode Toilet Bedside Commode Urinal # Voids 2 1 # Bowel Movements 1 - Labs CBC & Chem 7: 01/06/24 10:52 01/07/24 08:27 Labs: Microbiology - Last 24 Hours (Table) 01/04/24 12:20 Blood Culture - Preliminary Blood 01/04/24 11:57 Blood Culture - Preliminary Blood
--- NOTE | 2024-01-08 15:14 | P.PN ---
Progress Note - Text Progress Note Date: 01/08/24 Patient is 73-year-old male with known history of congestive heart failure with a EF of around 40 to 45% came in with complaints of shortness of breath orthopnea found to be in congestive heart failure with extensive bilateral edema on the x-ray with highly elevated BNP of 11,000, was started on IV Lasix patient takes oral Lasix at home patient is presently on 40 IV twice daily. Patient denies any chest pain. Patient was hypoxic. Patient does have history of COPD, continues to smoke and not willing to quit smoking patient had history of coronary artery disease with stents in 2011 patient is on Xarelto but as per the chart he is on this medication for CVA known his known history of atrial fibrillation. Patient does not have any fevers does not have any sputum production. Patient is on 6 L of oxygen does not use any oxygen at home 01-06-2024 Patient is seen in follow-up today continues on 6 L high flow oxygen and reports he does not wear any oxygen outpatient. Recommend weaning FiO2 as tolerated. Patient being followed by cardiology and continued on IV Lasix considering poss ibly transitioning to oral Lasix in the next day or so for continued CHF exacerbation. Patient's lower extremity edema has improved and patient reports to urinating. Patient reports he is incontinent and wearing a brief currently. Patient with generalized weakness will have PT/OT therapy evaluate the patient. Patient also with a known history of COPD and continued nicotine dependence discussed complete tobacco cessation and will continue on breathing treatments. January 06: Decreased appetite. Up in chair. 6 L nasal cannula. Some shortness of breath. No edema. Add DuoNeb 4 times daily and Pulmicort for COPD exacerbation. Repeat chest x-ray in a.m. January 07: Patient requesting a regular diet with salt does not like low-salt diet. Diet change. 4 L nasal cannula. Some improvement in breathing. Active Medications Acetaminophen (Acetaminophen Tab 325 Mg Tab) 650 mg PO Q6HR PRN PRN Reason: Mild Pain or Fever > 100.5 Last Admin: 01/07/24 05:36 Dose: 650 mg Albuterol/Ipratropium (Ipratropium-Albuterol 3 Ml Neb) 3 ml INHALATION RT-QID [facility] Last Admin: 01/08/24 11:38 Dose: Not Given Aspirin (Aspirin 81 Mg) 81 mg PO DAILY [facility] Last Admin: 01/08/24 08:25 Dose: 81 mg Atorvastatin Calcium (Atorvastatin 80 Mg Tab) 80 mg PO HS [facility] Last Admin: 01/07/24 20:04 Dose: 80 mg Budesonide (Budesonide 1 Mg/2 Ml Nebu) 1 mg INHALATION RT-BID [facility] Last Admin: 01/08/24 08:04 Dose: 1 mg Calcium Carbonate/Glycine (Calcium Carbonate 500 Mg Chewable) 1,000 mg PO QID PRN PRN Reason: Heartburn Last Admin: 01/06/24 22:30 Dose: 1,000 mg Cyanocobalamin (Cyanocobalamin 500 Mcg Tab) 500 mcg PO WEEKLY [facility] Cyclobenzaprine HCl (Cyclobenzaprine 5 Mg Tab) 5 mg PO HS PRN PRN Reason: Mild Spasms Last Admin: 01/07/24 01:57 Dose: 5 mg Dapagliflozin (Dapagliflozin Propanediol 10 Mg Tablet) 10 mg PO DAILY [facility] Last Admin: 01/08/24 08:25 Dose: 10 mg Donepezil HCl (Donepezil 10 Mg Tab) 10 mg PO HS [facility] Last Admin: 01/07/24 20:04 Dose: 10 mg Fluoxetine HCl (Fluoxetine Hcl 20 Mg Cap) 20 mg PO W/LUNCH [facility] Last Admin: 01/08/24 12:09 Dose: 20 mg Fluticasone Propionate (Fluticasone 50mcg/[place] Nasal 16gm) 1 spray EA NOSTRIL DAILY [facility] Last Admin: 01/08/24 08:26 Dose: 1 spray Furosemide (Furosemide 40 Mg Tab) 40 mg PO BID@0900,1600 [facility] Last Admin: 01/08/24 08:25 Dose: 40 mg Isosorbide Mononitrate (Isosorbide Mononitrate Er 30 Mg Tab.Er.24h) 30 mg PO DAILY [facility] Last Admin: 01/08/24 08:25 Dose: 30 mg Lacosamide (Lacosamide 50 Mg Tablet) 100 mg PO BID [facility] Last Admin: 01/08/24 08:25 Dose: 100 mg Lorazepam (Lorazepam 1 Mg Tab) 1 mg PO TID PRN PRN Reason: Anxiety Last Admin: 01/08/24 04:47 Dose: 1 mg Losartan Potassium (Losartan 25 Mg Tab) 25 mg PO DAILY [facility] Last Admin: 01/08/24 12:09 Dose: 25 mg Metoprolol Succinate (Metoprolol Succinate (Er) 25 Mg Tab.Er.24h) 25 mg PO DAILY [facility] Last Admin: 01/08/24 08:25 Dose: 25 mg Miscellaneous Information (Potassium Replacement Protocol 1 Each Misc) 1 each MISCELLANE DAILY PRN; Protocol PRN Reason: Per Protocol Montelukast Sodium (Montelukast 10 Mg Tab) 10 mg PO HS [facility] Last Admin: 01/07/24 20:04 Dose: 10 mg Naloxone HCl (Naloxone 0.4 Mg/Ml 1 Ml Vial) 0.2 mg IV Q2M PRN PRN Reason: Opioid Reversal Oxycodone/Acetaminophen (Oxycodone-Apap 10-325mg 1 Each Tab) 1 each PO QID [facility] Last Admin: 01/08/24 12:09 Dose: 1 each Pantoprazole Sodium (Pantoprazole 40 Mg Tablet) 40 mg PO BID [facility] Last Admin: 01/08/24 08:25 Dose: 40 mg Rivaroxaban (Rivaroxaban 20 Mg Tab) 20 mg PO DAILY [facility]; Protocol Last Admin: 01/08/24 08:25 Dose: 20 mg Trazodone HCl (Trazodone Hcl 100 Mg Tab) 100 mg PO [facility] Last Admin: 01/07/24 20:04 Dose: 100 mg Past medical history to include: Concussion, possible tonic-clonic seizure, coronary artery disease with stent, GERD, hyperlipidemia, essential hypertension, primary osteoarthritis, nicotine dependence.. Stroke March 2023-with residual right-sided weakness and weakness right side of the face Social history: Lives alone. Smokes a pack a day-several years. Physical examination: VITAL SIGNS: 97.8, 74, 16, 165 x 78, 97% on 4 L GENERAL: Reclining in bed EYES: Pupils equal. Conjunctiva normal. HEENT: External appearance of nose and ears normal, oral cavity grossly normal. NECK: JVD not raised; masses not palpable. HEART: First and second heart sounds are normal; no edema. Decreased dorsalis pedis. LUNGS: Respiratory rate increased, decreased breath sounds ABDOMEN: Soft, nontender, liver spleen not palpable, no masses palpable. PSYCH: AO X 3, mood affect normal NEUROLOGICAL: Cranial nerves grossly intact. Moving all 4 limbs. Power on the right side 4/5. Flattening of right nasolabial fold. MUSCULAR skeletal: Evidence of OA. INVESTIGATIONS, reviewed in the clinical context: January 05: White count 14.3 hemoglobin 11.6 platelets 329 sodium 135 creatinine 1.18 2D echocardiogram: EF 40 to 45%. Moderate mitral regurgitation. Assessment and plan: -Acute hypoxic respiratory failure secondary to congestive heart failure: Some improvement Currently on 4 L nasal cannula -Acute on chronic congestive heart exacerbation from systolic dysfunction EF 40 to 45% P.o. Lasix 40 mg twice daily -Elevated troponins: Likely secondary to congestive heart failure Followed by cardiology -Transaminitis secondary to hepatic congestion expected to improve with Lasix -Acute COPD exacerbationsmoker: Slow to respond DuoNeb 4 times daily. Pulmicort 1 mg twice daily -Continued ongoing nicotine dependence -Peripheral vascular disease Aspirin -Chronic low back pain/osteoarthritis on stronger opioids for long time -Chronic tonic-clonic seizures. Vimpat 100 mg twice a day. Outpatient: Neurologist Dr. Bryan -Prior history of aggressive behavior likely could be manifestation of temporal lobe seizure.: -History: Subacute stroke March 2023 Involving the right thalamus and the left parietal/occipital region. Status post TPA. Aspirin. Brillinta [place] : Negative for shunting or embolic source. Follow-up with Dr. Flaherty -Right endarterectomy patch done by Dr. Agustina Romero April 03. -Possible atrial fibrillation in 2022 at [facility] As per the patient. Xarelto -Vitamin B12 and folate deficiency B12 and folic acid supplement -Chronic nicotine dependence cigarette smoker -Coronary artery disease with stent Aspirin. -GERD PPI -Hyperlipidemia Lipitor 80 mg daily at bedtime. -Essential hypertension Toprol-XL 25 mg a day -No code -Disposition: Rehab Changed to regular diet. Other medications to continue.
--- NOTE | 2024-01-08 19:12 | XR ---
EXAMINATION TYPE: XR chest 1V portable DATE OF EXAM: 01/08/2024 COMPARISON: 01/04/2024 INDICATION: CHF TECHNIQUE: Single frontal view of the chest is obtained. FINDINGS: The heart size is normal. The pulmonary vasculature is prominent. Mild diffuse increased lung markings are present. This has improved from comparison. IMPRESSION: 1. Findings suggestive for improving congestive heart failure. Continued follow-up is recommended.
[2024-01-09 09:15] LABS: Anion Gap 7 mmol/L; Blood Urea Nitrogen 35 mg/dL (9-20); Carbon Dioxide 30 mmol/L (22-30); Chloride 96 mmol/L (98-107); Glucose 132 mg/dL (74-99); Potassium 4.2 mmol/L (3.5-5.1); Sodium 133 mmol/L (137-145)
[2024-01-09 09:16] LABS: African American GFR (CKD) 83 (>60 ml/min/1.73 sqM); Calcium 8.8 mg/dL (8.4-10.2); Non-African American GFR(CKD) 72 (>60 ml/min/1.73 sqM)
[2024-01-09 09:23] LABS: NT-Pro-B-Type Natriuretic Pept 1380 pg/mL
[2024-01-09 09:41] LABS: Glucose,Whole Blood 188 mg/dL (70-110)
[2024-01-09 09:41] LABS: Glucose,Whole Blood 299 mg/dL (70-110)
--- NOTE | 2024-01-09 10:03 | XR ---
EXAMINATION TYPE: XR chest 1V portable DATE OF EXAM: 01/09/2024 COMPARISON: 01/08/2024 INDICATION: CHF, pneumonia TECHNIQUE: Single frontal view of the chest is obtained. FINDINGS: The heart size is normal. The pulmonary vasculature is normal. Mild residual infiltrates are present. Correlate for resolving pulmonary edema and volume overload IMPRESSION: 1. One infiltrates are resolving. Residual remains. Continued follow-up is recommended.
--- NOTE | 2024-01-09 11:46 | P.PN ---
Subjective Progress Note Date: 01/09/24 Principal diagnosis: Acute hypoxic respiratory failure secondary to acute systolic congestive heart failure. With LV dysfunction and moderate mitral regurgitation This is a 73-year-old white male with history of CVA back in March 21, 2002 3, maintained on Xarelto, patient is also known to have history of seizure disorder, TIAs, DVT, carotid artery disease and previous right carotid endarterectomy. History of left carotid endarterectomy 6 years ago, hypertension dyslipidemia hepatitis C coronary artery disease and previous PCI in 2011, patient has been an active smoker since age 11. Patient presented to the ER with mostly 2 weeks history of lightheadedness and dizziness, and had an episode of syncope. Patient was noted to have difficulty breathing, and his O2 saturation was 70% on room air upon his initial presentation. Chest x-ray on admission clearly showed evidence of pulmonary edema, CT of the brain showed age-related atrophic changes and chronic small vessel disease changes no evidence of acute intracranial process at the time patient was seen by car diology yesterday, and it was felt that the patient had shortness of breath secondary to acute systolic congestive heart failure and felt there may be some component of acute COPD exacerbation. Patient has been improving with diuretics, he is also on bronchodilators, during my evaluation, patient had no symptoms of shortness of breath cough or wheezing no chest pain, he was mostly concerned about his chronic dizziness lightheadedness and some chronic right- sided weakness. Patient limps upon walking. Again his chest x-ray showed evidence of pulmonary edema. His CBC was relatively normal except for a slight leukocytosis with WBC count of 14.3, procalcitonin level was elevated at 0.60, although the patient had no symptoms to suggest clinically underlying pneumonia although based on the chest x-ray it is difficult to tell the chest x-ray findings are mostly findings of pulmonary edema. Patient is receiving Lasix at 40 mg IV push twice daily, follow-up chest x-ray is pending Patient was reevaluated today on 01/07/2024, patient is about the same. Not much of a change in the last 24 hours. Remains on 6 L nasal cannula, and O2 sats 94%. Remains on Lasix at 40 mg p.o. twice daily, follow-up chest x-ray to be done tomorrow, if no improvement patient needs to be on a higher dose of diuretics. Be decided upon in the next 24 hours. In the meantime the patient is still complaining of dizziness, lightheadedness, and complaining of generalized weakness and some shortness of breath. No fever no chills no hemoptysis no chest pain. Echocardiogram showed LV dysfunction/mild and showed moderate mitral regurgitation. Reevaluated today on 01/08/2024, slight improvement in his overall congestive heart failure status, he is now on 4 L nasal cannula with O2 sats of 97%, patient feels a bit better, but not by much. Remains generally weak, remains lightheaded, patient remains on diuretics, and noted to have minimal negative fluid balance, may require higher dose of diuretics. Chest x-ray continues to show evidence of pulmonary edema. His electrolytes are normal BUN is 42 creat inine 1.18 WBC count is 14.3 hemoglobin is 11.6 Reevaluated today on 01/09/2024, patient is basically about the same. No major change in the last couple of days. Although chest x-ray is showing significant improvement in his interstitial edema. Underlying pneumonia is felt to be less likely however considering the patient procalcitonin level is elevated, I will go ahead and empirically and started the patient on antibiotics in the form of Zosyn. Patient is on 4 L nasal cannula, went up from 2 L although chest x-ray showed improvement. Patient is afebrile, and hemodynamically stable Objective - Vital Signs Vital signs: Vital Signs Temp 98.2 F 01/09/24 02:00 Pulse 75 01/09/24 07:46 Resp 16 01/09/24 07:55 BP 136/82 01/09/24 07:46 Pulse Ox 98 01/09/24 07:46 FiO2 Intake & Output 01/08/24 01/09/24 01/09/24 18:59 06:59 18:59 Intake Total 222 240 0 Output Total 800 200 Balance -578 40 0 Weight 71 kg Intake: Oral 222 240 0 Output: Urine 800 200 Other: Voiding Method Toilet Toilet Bedside Commode Bedside Commode Urinal Urinal - Exam General: Revealed a 73-year-old white male in no distress however patient is on 4 L nasal cannula with O2 sat of 97% Skin: Skin is warm and dry and no rashes or lesions are noted. Eye: Pupils are equal, round and reactive to light, extra-ocular movements are intact; there is normal conjunctiva bilaterally. Ears, nose, mouth and throat: There are moist mucous membranes and no oral lesions. Neck: The neck is supple, there is no tenderness or JVD. Cardiovascular: There is a regular rate and rhythm. No murmur, rub or gallop is appreciated. Respiratory: Diminished breath sound bilaterally crackles at the bases. No rhonchi no wheezes Gastrointestinal: Soft, non-distended, non-tender abdomen without masses or organomegaly noted. There is no rebound or guarding present. Bowel sounds are unremarkable. Back: There is no tenderness to palpation in the midline. There is no obvious deformity. Musculoskeletal: Normal ROM, no tenderness, There is no pedal edema. There is no calf tenderness or swelling. No cords were appreciated. Neurological: Alert and oriented x 3, very minimal weakness in the right upper extremity. 4/5. Psychiatric: Normal mood affect and no mental status examination - Labs CBC & Chem 7: 01/06/24 10:52 01/09/24 07:33 Labs: Abnormal Lab Results - Last 24 Hours (Table) 01/09/24 01/09/24 01/09/24 Range/Units 07:33 09:38 09:39 Sodium 133 L (137-145) mmol/L Chloride 96 L (98-107) mmol/L BUN 35 H (9-20) mg/dL Glucose 132 H (74-99) mg/dL POC Glucose (mg/dL) 299 H 188 H (70-110) mg/dL Assessment and Plan Assessment: Impression: Acute hypoxic respiratory failure secondary to acute systolic congestive heart failure and secondary to underlying COPD. Strongly suspect underlying COPD but considering his smoking history since age 11. Underlying pneumonia is not entirely ruled out although clinically felt to be less likely nonetheless considering the overall presentation I will empirically start the patient on antibiotics/Zosyn, patient has elevated procalcitonin level History of coronary artery disease, previous PCI in 2012 History of CVA and TIAs, and bilateral carotid endarterectomy Benign essential hypertension Dyslipidemia Tobacco dependence syndrome History of seizure disorder Acute transaminitis secondary to hepatic congestion from congestive heart failure History of GERD without esophagitis History of peripheral vessel occlusive disease Moderate mitral regurgitation Elevated procalcitonin but no clear-cut evidence of clinical infection. Hence recommend holding on antibiotics for now Recommendation: Continue diuretics, chest x-ray is showing improvement Empiric antibiotics/Zosyn for elevated procalcitonin level Continue DuoNeb updraft 4 times daily and as needed for his underlying COPD Continue Xarelto Continue aspirin and statin Continue beta-blockers Strict monitoring of I's and O's Will continue to follow Time with Patient: Less than 30
[2024-01-09 12:36] LABS: Glucose,Whole Blood 121 mg/dL (70-110)
--- NOTE | 2024-01-09 13:07 | P.PN ---
Subjective HISTORY OF PRESENT ILLNESS: This is a 73-year-old male with past medical history of CVA (03/30/2023) on Xarelto and multiple TIAs most recently in November 2023, seizure disorder, history of DVT, carotid artery disease status post right ICA endarterectomy with patch angioplasty in March 2023 and reported left CEA 6 years ago, hypertension, hyperlipidemia, hepatitis C, coronary artery disease with PCI in 2011, active tobacco use and dependence. We have been asked to evaluate the patient for CHF. Patient was brought into the hospital due to difficulty in breathing and hypoxia with pulse ox 70%. Patient states that he passed out yesterday not really sure why he is here. He states he has shortness of breath with activity. He denies any lower extremity edema. No palpitations, no dizziness. He denies having history of atrial fibrillation. He is not normally active since his strokes. No nausea or vomiting. No diarrhea or abdominal pain. He does not drink very much caffeine. No alcohol use. Patient is an active smoker of 2 packs/day. Regarding cardiac history, patient had a stent placed in 2011 and had a cryptozoologist in [place] at the time but has not followed up. He denies having a lung doctor. Patient has been started on IV Lasix 40 mg every 12 hours. Patient is seen today in the emergency center waiting for bed on the cardiac stepdown unit. EKG: Sinus rhythm [address]-T wave changes. Chest x-ray: Pulmonary edema. Correlate for congestive heart failure. CT brain: Age-related atrophy and chronic small vessel ischemic change without acute intracranial process. Laboratory studies: WBC 13.2, hemoglobin 9.2. Potassium 4.7, BUN 26 creatinine 1.03. Troponin 0.705, 0.54, 0.482. Magnesium 2.5. Lactic acid 1.6. AST 364, ALT 262, alkaline phosphatase 184. proBNP 11,000. Home cardiac medications: Aspirin 81 mg daily, atorvastatin 80 mg at bedtime, Imdur 30 mg daily, Toprol-XL 25 mg daily, Xarelto 10 mg daily. Event monitor 05/08/2023 revealed sinus rhythm with PVCs, often in bigeminal pattern. Short bursts of nonsustained V. tach. [place] performed 04/01/2023 revealed no cardiac source for CVA. Echocardiogram performed 04/18/2023 revealed EF 40 to 45%. Limited study. 01/05 Patient denies any chest pain but has some pain in the right clavicle area. No palpitations no dizziness. He has been maintained on IV Lasix 40 mg every 12 hours. He has had a negative fluid balance. Weights do not appear to be accurate. Blood pressure 155/75, heart rate in the 60s, pulse ox 92% on 7 L high flow nasal cannula. Repeat blood work is not available at the time of this dictation. Echocardiogram is pending. 01/06 Patient denies having any chest pain, chest pressure or chest tightness. His breathing is better. He still has some wheezing and cough with green sputum production. He is utilizing incentive spirometry. Blood pressure 122/75, heart rate 69, pulse ox 94% on high flow nasal cannula 6 L. Repeat potassium 4.2. Yesterday, IV Lasix was transitioned to oral, patient continued on Farxiga. Echocardiogram reveals EF of 45 to 50%, moderate mitral regurgitation. 01/07 Patient states that he is still having some shortness of breath but improving. Patient continues to have cough with green sputum production and wheezing. He denies having any chest pain and nausea. Blood pressure 165/78, heart rate 74, pulse ox 97% on 4 L nasal cannula. Patient is currently maintained on oral cardiac medications. 01/09/2024 Patient examined this morning at the bedside. Patient currently denies chest pain or pressure. He reports SOB, although improving. He does report a cough with sputum production. He reports having some chest discomfort when coughing. He remains on oral diuretics. Vital signs are stable. Creatinine today stable at 1.03. proBNP 1380, down from 11,000. PHYSICAL EXAM: VITAL SIGNS: Reviewed. GENERAL: Well-developed in no acute distress. NECK: Supple. No JVD or thyromegaly LUNGS: Respirations even and unlabored. Lungs essentially clear to auscultation bilaterally. HEART: Regular rate and rhythm. S1 and S2 heard. EXTREMITIES: Normal range of motion. No clubbing or cyanosis. Peripheral pulses intact. No lower extremity edema ASSESSMENT: Shortness of breath Acute heart failure with mildly reduced EF, 45 to 50% Possible COPD exacerbation Elevated troponins, likely type II CA secondary to oxygen supply and demand mismatch secondary to acute heart failure Elevated liver function test most likely due to liver congestion History of CVA and TIA's Seizure disorder Carotid artery disease status post endarterectomy bilaterally Hypertension Hyperlipidemia Coronary artery disease with previous PCI in 2012, no follow-up History of DVT Nicotine dependence PLAN: Decrease Lasix to 40 mg daily Continue additional cardiac medications Further recommendations pending patient course Nurse practitioner note has been reviewed by physician. Signing provider agrees with the documented findings, assessment, and plan of care documented by [employer] as a scribe. Objective - Vital Signs Vital signs: Vital Signs Temp 98.2 F 01/09/24 02:00 Pulse 75 01/09/24 07:46 Resp 16 01/09/24 07:55 BP 136/82 01/09/24 07:46 Pulse Ox 98 01/09/24 07:46 FiO2 Intake & Output 01/08/24 01/09/24 01/09/24 18:59 06:59 18:59 Intake Total 222 240 0 Output Total 800 200 Balance -578 40 0 Weight 71 kg Intake: Oral 222 240 0 Output: Urine 800 200 Other: Voiding Method Toilet Toilet Bedside Commode Bedside Commode Urinal Urinal - Labs CBC & Chem 7: 01/06/24 10:52 01/09/24 07:33 Labs: Abnormal Lab Results - Last 24 Hours (Table) 01/09/24 01/09/24 01/09/24 Range/Units 07:33 09:38 09:39 Sodium 133 L (137-145) mmol/L Chloride 96 L (98-107) mmol/L BUN 35 H (9-20) mg/dL Glucose 132 H (74-99) mg/dL POC Glucose (mg/dL) 299 H 188 H (70-110) mg/dL
[2024-01-09] MEDS: PIPERACILLIN-TAZOBACTAM 3.375 GM in SODIUM CHLORIDE 0.9% 100 ML IVPB SCH (13:22)
--- NOTE | 2024-01-09 14:43 | P.PN ---
Progress Note - Text Progress Note Date: 01/09/24 Patient is 73-year-old male with known history of congestive heart failure with a EF of around 40 to 45% came in with complaints of shortness of breath orthopnea found to be in congestive heart failure with extensive bilateral edema on the x-ray with highly elevated BNP of 11,000, was started on IV Lasix patient takes oral Lasix at home patient is presently on 40 IV twice daily. Patient denies any chest pain. Patient was hypoxic. Patient does have history of COPD, continues to smoke and not willing to quit smoking patient had history of coronary artery disease with stents in 2011 patient is on Xarelto but as per the chart he is on this medication for CVA known his known history of atrial fibrillation. Patient does not have any fevers does not have any sputum production. Patient is on 6 L of oxygen does not use any oxygen at home 01-06-2024 Patient is seen in follow-up today continues on 6 L high flow oxygen and reports he does not wear any oxygen outpatient. Recommend weaning FiO2 as tolerated. Patient being followed by cardiology and continued on IV Lasix considering poss ibly transitioning to oral Lasix in the next day or so for continued CHF exacerbation. Patient's lower extremity edema has improved and patient reports to urinating. Patient reports he is incontinent and wearing a brief currently. Patient with generalized weakness will have PT/OT therapy evaluate the patient. Patient also with a known history of COPD and continued nicotine dependence discussed complete tobacco cessation and will continue on breathing treatments. January 06: Decreased appetite. Up in chair. 6 L nasal cannula. Some shortness of breath. No edema. Add DuoNeb 4 times daily and Pulmicort for COPD exacerbation. Repeat chest x-ray in a.m. January 07: Patient requesting a regular diet with salt does not like low-salt diet. Diet change. 4 L nasal cannula. Some improvement in breathing. January 08: Have the patient up in a chair. Encourage oral intake. Pending rehab. Zosyn started by pulmonary for probable pneumonia Active Medications Acetaminophen (Acetaminophen Tab 325 Mg Tab) 650 mg PO Q6HR PRN PRN Reason: Mild Pain or Fever > 100.5 Last Admin: 01/07/24 05:36 Dose: 650 mg Albuterol/Ipratropium (Ipratropium-Albuterol 3 Ml Neb) 3 ml INHALATION RT-QID [facility] Last Admin: 01/09/24 11:37 Dose: Not Given Aspirin (Aspirin 81 Mg) 81 mg PO DAILY [facility] Last Admin: 01/09/24 07:47 Dose: 81 mg Atorvastatin Calcium (Atorvastatin 80 Mg Tab) 80 mg PO HS [facility] Last Admin: 01/08/24 20:09 Dose: 80 mg Budesonide (Budesonide 1 Mg/2 Ml Nebu) 1 mg INHALATION RT-BID [facility] Last Admin: 01/09/24 08:06 Dose: Not Given Calcium Carbonate/Glycine (Calcium Carbonate 500 Mg Chewable) 1,000 mg PO QID PRN PRN Reason: Heartburn Last Admin: 01/06/24 22:30 Dose: 1,000 mg Cyanocobalamin (Cyanocobalamin 500 Mcg Tab) 500 mcg PO WEEKLY [facility] Cyclobenzaprine HCl (Cyclobenzaprine 5 Mg Tab) 5 mg PO HS PRN PRN Reason: Mild Spasms Last Admin: 01/07/24 01:57 Dose: 5 mg Dapagliflozin (Dapagliflozin Propanediol 10 Mg Tablet) 10 mg PO DAILY [facility] Last Admin: 01/09/24 07:47 Dose: 10 mg Donepezil HCl (Donepezil 10 Mg Tab) 10 mg PO HS [facility] Last Admin: 01/08/24 20:09 Dose: 10 mg Fluoxetine HCl (Fluoxetine Hcl 20 Mg Cap) 20 mg PO W/LUNCH [facility] Last Admin: 01/09/24 13:23 Dose: 20 mg Fluticasone Propionate (Fluticasone 50mcg/[place] Nasal 16gm) 1 spray EA NOSTRIL DAILY [facility] Last Admin: 01/09/24 10:02 Dose: Not Given Furosemide (Furosemide 40 Mg Tab) 40 mg PO DAILY [facility] Piperacillin Sod/Tazobactam (Sod 3.375 gm/ Sodium Chloride) 100 mls @ 25 mls/hr IVPB Q8H [facility]; Protocol Last Admin: 01/09/24 13:22 Dose: 25 mls/hr Isosorbide Mononitrate (Isosorbide Mononitrate Er 30 Mg Tab.Er.24h) 30 mg PO DAILY [facility] Last Admin: 01/09/24 07:47 Dose: 30 mg Lacosamide (Lacosamide 50 Mg Tablet) 100 mg PO BID [facility] Last Admin: 01/09/24 07:47 Dose: 100 mg Lorazepam (Lorazepam 1 Mg Tab) 1 mg PO TID PRN PRN Reason: Anxiety Last Admin: 01/09/24 07:54 Dose: 1 mg Losartan Potassium (Losartan 25 Mg Tab) 25 mg PO DAILY [facility] Last Admin: 01/09/24 07:48 Dose: 25 mg Metoprolol Succinate (Metoprolol Succinate (Er) 25 Mg Tab.Er.24h) 25 mg PO DAILY [facility] Last Admin: 01/09/24 07:48 Dose: 25 mg Miscellaneous Information (Potassium Replacement Protocol 1 Each Misc) 1 each MISCELLANE DAILY PRN; Protocol PRN Reason: Per Protocol Montelukast Sodium (Montelukast 10 Mg Tab) 10 mg PO [facility] Last Admin: 01/08/24 20:09 Dose: 10 mg Naloxone HCl (Naloxone 0.4 Mg/Ml 1 Ml Vial) 0.2 mg IV Q2M PRN PRN Reason: Opioid Reversal Oxycodone/Acetaminophen (Oxycodone-Apap 10-325mg 1 Each Tab) 1 each PO QID [facility] Last Admin: 01/09/24 13:23 Dose: 1 each Pantoprazole Sodium (Pantoprazole 40 Mg Tablet) 40 mg PO BID [facility] Last Admin: 01/09/24 07:47 Dose: 40 mg Rivaroxaban (Rivaroxaban 20 Mg Tab) 20 mg PO DAILY [facility]; Protocol Last Admin: 01/09/24 07:47 Dose: 20 mg Trazodone HCl (Trazodone Hcl 100 Mg Tab) 100 mg PO [facility] Last Admin: 01/08/24 20:09 Dose: 100 mg Past medical history to include: Concussion, possible tonic-clonic seizure, coronary artery disease with stent, GERD, hyperlipidemia, essential hypertension, primary osteoarthritis, nicotine dependence.. Stroke March 2023-with residual right-sided weakness and weakness right side of the face Social history: Lives alone. Smokes a pack a day-several years. Physical examination: VITAL SIGNS:98.4, 68, 18, 90/65, 94% on 2 L GENERAL: Reclining in bed EYES: Pupils equal. Conjunctiva normal. HEENT: External appearance of nose and ears normal, oral cavity grossly normal. NECK: JVD not raised; masses not palpable. HEART: First and second heart sounds are normal; no edema. Decreased dorsalis pedis. LUNGS: Respiratory rate increased, decreased breath sounds ABDOMEN: Soft, nontender, liver spleen not palpable, no masses palpable. PSYCH: AO X 3, mood affect normal NEUROLOGICAL: Cranial nerves grossly intact. Moving all 4 limbs. Power on the right side 4/5. Flattening of right nasolabial fold. MUSCULAR skeletal: Evidence of OA. INVESTIGATIONS, reviewed in the clinical context: January 08: Potassium 4.2 creatinine 1.03 January 05: White count 14.3 hemoglobin 11.6 platelets 329 sodium 135 creatinine 1.18 2D echocardiogram: EF 40 to 45%. Moderate mitral regurgitation. Assessment and plan: -Acute hypoxic respiratory failure secondary to congestive heart failure: Much improvement Currently on 2 L nasal cannula -Acute on chronic congestive heart exacerbation from systolic dysfunction EF 40 to 45%: Euvolemic P.o. Lasix 40 mg twice daily -Probable pneumonia suspect gram-negative organism by pulmonary IV Zosyn started -Elevated troponins: Likely secondary to congestive heart failure Followed by cardiology -Transaminitis secondary to hepatic congestion expected to improve with Lasix -Acute COPD exacerbationsmoker: Better DuoNeb 4 times daily. Pulmicort 1 mg twice daily -Continued ongoing nicotine dependence -Peripheral vascular disease Aspirin -Chronic low back pain/osteoarthritis on stronger opioids for long time -Chronic tonic-clonic seizures. Vimpat 100 mg twice a day. Outpatient: Neurologist Dr. Bryan -Prior history of aggressive behavior likely could be manifestation of temporal lobe seizure.: -History: Subacute stroke March 2023 Involving the right thalamus and the left parietal/occipital region. Status post TPA. Aspirin. Brillinta [place] : Negative for shunting or embolic source. Follow-up with Dr. Flaherty -Right endarterectomy patch done by Dr. Agustina Romero April 03. -Possible atrial fibrillation in 2022 at [facility] As per the patient. Xarelto -Vitamin B12 and folate deficiency B12 and folic acid supplement -Chronic nicotine dependence cigarette smoker -Coronary artery disease with stent Aspirin. -GERD PPI -Hyperlipidemia Lipitor 80 mg daily at bedtime. -Essential hypertension Toprol-XL 25 mg a day -No code -Disposition: Rehab Patient to be up in a recliner. IV Zosyn started.
[2024-01-10] MEDS: FUROSEMIDE 40 MG TAB PO SCH (08:23)
--- NOTE | 2024-01-10 10:07 | P.PN ---
Subjective HISTORY OF PRESENT ILLNESS: This is a 73-year-old male with past medical history of CVA (03/30/2023) on Xarelto and multiple TIAs most recently in November 2023, seizure disorder, history of DVT, carotid artery disease status post right ICA endarterectomy with patch angioplasty in March 2023 and reported left CEA 6 years ago, hypertension, hyperlipidemia, hepatitis C, coronary artery disease with PCI in 2011, active tobacco use and dependence. We have been asked to evaluate the patient for CHF. Patient was brought into the hospital due to difficulty in breathing and hypoxia with pulse ox 70%. Patient states that he passed out yesterday not really sure why he is here. He states he has shortness of breath with activity. He denies any lower extremity edema. No palpitations, no dizziness. He denies having history of atrial fibrillation. He is not normally active since his strokes. No nausea or vomiting. No diarrhea or abdominal pain. He does not drink very much caffeine. No alcohol use. Patient is an active smoker of 2 packs/day. 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 He denies having a lung doctor. Patient has been started on IV Lasix 40 mg every 12 hours. Patient is seen today in the emergency center waiting for bed on the cardiac stepdown unit. EKG: Sinus rhythm [address]-T wave changes. Chest x-ray: Pulmonary edema. Correlate for congestive heart failure. CT brain: Age-related atrophy and chronic small vessel ischemic change without acute intracranial process. Laboratory studies: WBC 13.2, hemoglobin 9.2. Potassium 4.7, BUN 26 creatinine 1.03. Troponin 0.705, 0.54, 0.482. Magnesium 2.5. Lactic acid 1.6. AST 364, ALT 262, alkaline phosphatase 184. proBNP 11,000. Home cardiac medications: Aspirin 81 mg daily, atorvastatin 80 mg at bedtime, Imdur 30 mg daily, Toprol-XL 25 mg daily, Xarelto 10 mg daily. Event monitor 05/08/2023 revealed sinus rhythm with PVCs, often in bigeminal pattern. Short bursts of nonsustained V. tach. [place] performed 04/01/2023 revealed no cardiac source for CVA. Echocardiogram performed 04/18/2023 revealed EF 40 to 45%. Limited study. 01/05 Patient denies any chest pain but has some pain in the right clavicle area. No palpitations no dizziness. He has been maintained on IV Lasix 40 mg every 12 hours. He has had a negative fluid balance. Weights do not appear to be accurate. Blood pressure 155/75, heart rate in the 60s, pulse ox 92% on 7 L high flow nasal cannula. Repeat blood work is not available at the time of this dictation. Echocardiogram is pending. 01/06 Patient denies having any chest pain, chest pressure or chest tightness. His breathing is better. He still has some wheezing and cough with green sputum production. He is utilizing incentive spirometry. Blood pressure 122/75, heart rate 69, pulse ox 94% on high flow nasal cannula 6 L. Repeat potassium 4.2. Yesterday, IV Lasix was transitioned to oral, patient continued on Farxiga. Echocardiogram reveals EF of 45 to 50%, moderate mitral regurgitation. 01/07 Patient states that he is still having some shortness of breath but improving. Patient continues to have cough with green sputum production and wheezing. He denies having any chest pain and nausea. Blood pressure 165/78, heart rate 74, pulse ox 97% on 4 L nasal cannula. Patient is currently maintained on oral cardiac medications. 01/09/2024 Patient examined this morning at the bedside. Patient currently denies chest pain or pressure. He reports SOB, although improving. He does report a cough with sputum production. He reports having some chest discomfort when coughing. He remains on oral diuretics. Vital signs are stable. Creatinine today stable at 1.03. proBNP 1380, down from 11,000. 01/10/2024 Patient examined this morning at bedside. Patient currently denies shortness of breath. He reports chest pain that is worse with deep inspiration, cough, and chest wall palpation. Per nursing, patient recently received Percocet for pain. Patient's vital signs are stable. PHYSICAL EXAM: VITAL SIGNS: Reviewed. GENERAL: Well-developed in no acute distress. NECK: Supple. No JVD or thyromegaly LUNGS: Respirations even and unlabored. Lungs essentially clear to auscultation bilaterally. HEART: Regular rate and rhythm. S1 and S2 heard. EXTREMITIES: Normal range of motion. No clubbing or cyanosis. Peripheral pulses intact. No lower extremity edema ASSESSMENT: Shortness of breath Acute heart failure with mildly reduced EF, 45 to 50% Possible COPD exacerbation Elevated troponins, likely type II TX secondary to oxygen supply and demand mismatch secondary to acute heart failure Elevated liver function test most likely due to liver congestion History of CVA and TIA's Seizure disorder Carotid artery disease status post endarterectomy bilaterally Hypertension Hyperlipidemia Coronary artery disease with previous PCI in 2012, no follow-up History of DVT Nicotine dependence PLAN: Continue current cardiac medications Patient is currently stable from a cardiac standpoint Further recommendations pending patient course Nurse practitioner note has been reviewed by physician. Signing provider agrees with the documented findings, assessment, and plan of care documented by SKEIN BANDER as a scribe. Objective - Vital Signs Vital signs: Vital Signs Temp 98.4 F 01/10/24 08:00 Pulse 68 01/10/24 08:00 Resp 18 01/10/24 08:00 BP 130/71 01/10/24 08:00 Pulse Ox 97 01/10/24 09:05 FiO2 Intake & Output 01/09/24 01/10/24 01/10/24 18:59 06:59 18:59 Intake Total 110 120 Output Total 400 Balance 110 -400 120 Intake: Oral 110 120 Output: Urine 400 Other: Voiding Method Bedside Commode Urinal - Labs CBC & Chem 7: 01/06/24 10:52 01/09/24 07:33 Labs: Abnormal Lab Results - Last 24 Hours (Table) 01/09/24 Range/Units 12:24 POC Glucose (mg/dL) 121 H (70-110) mg/dL Microbiology - Last 24 Hours (Table) 01/04/24 12:20 Blood Culture - Final Blood 01/04/24 11:57 Blood Culture - Final Blood
--- NOTE | 2024-01-10 11:55 | P.PN ---
Subjective Progress Note Date: 01/10/24 Principal diagnosis: Acute hypoxic respiratory failure secondary to acute systolic congestive heart failure. With LV dysfunction and moderate mitral regurgitation This is a 73-year-old white male with history of CVA back in March 21, 2002 3, maintained on Xarelto, patient is also known to have history of seizure disorder, TIAs, DVT, carotid artery disease and previous right carotid endarterectomy. History of left carotid endarterectomy 6 years ago, hypertension dyslipidemia hepatitis C coronary artery disease and previous PCI in 2011, patient has been an active smoker since age 11. Patient presented to the ER with mostly 2 weeks history of lightheadedness and dizziness, and had an episode of syncope. Patient was noted to have difficulty breathing, and his O2 saturation was 70% on room air upon his initial presentation. Chest x-ray on admission clearly showed evidence of pulmonary edema, CT of the brain showed age-related atrophic changes and chronic small vessel disease changes no evidence of acute intracranial process at the time patient was seen by car diology yesterday, and it was felt that the patient had shortness of breath secondary to acute systolic congestive heart failure and felt there may be some component of acute COPD exacerbation. Patient has been improving with diuretics, he is also on bronchodilators, during my evaluation, patient had no symptoms of shortness of breath cough or wheezing no chest pain, he was mostly concerned about his chronic dizziness lightheadedness and some chronic right- sided weakness. Patient limps upon walking. Again his chest x-ray showed evidence of pulmonary edema. His CBC was relatively normal except for a slight leukocytosis with WBC count of 14.3, procalcitonin level was elevated at 0.60, although the patient had no symptoms to suggest clinically underlying pneumonia although based on the chest x-ray it is difficult to tell the chest x-ray findings are mostly findings of pulmonary edema. Patient is receiving Lasix at 40 mg IV push twice daily, follow-up chest x-ray is pending Patient was reevaluated today on 01/07/2024, patient is about the same. Not much of a change in the last 24 hours. Remains on 6 L nasal cannula, and O2 sats 94%. Remains on Lasix at 40 mg p.o. twice daily, follow-up chest x-ray to be done tomorrow, if no improvement patient needs to be on a higher dose of diuretics. Be decided upon in the next 24 hours. In the meantime the patient is still complaining of dizziness, lightheadedness, and complaining of generalized weakness and some shortness of breath. No fever no chills no hemoptysis no chest pain. Echocardiogram showed LV dysfunction/mild and showed moderate mitral regurgitation. Reevaluated today on 01/08/2024, slight improvement in his overall congestive heart failure status, he is now on 4 L nasal cannula with O2 sats of 97%, patient feels a bit better, but not by much. Remains generally weak, remains lightheaded, patient remains on diuretics, and noted to have minimal negative fluid balance, may require higher dose of diuretics. Chest x-ray continues to show evidence of pulmonary edema. His electrolytes are normal BUN is 42 creat inine 1.18 WBC count is 14.3 hemoglobin is 11.6 Reevaluated today on 01/09/2024, patient is basically about the same. No major change in the last couple of days. Although chest x-ray is showing significant improvement in his interstitial edema. Underlying pneumonia is felt to be less likely however considering the patient procalcitonin level is elevated, I will go ahead and empirically and started the patient on antibiotics in the form of Zosyn. Patient is on 4 L nasal cannula, went up from 2 L although chest x-ray showed improvement. Patient is afebrile, and hemodynamically stable Patient was evaluated today on 01/10/2024, patient is now complaining of new onset left-sided chest pain, pleuritic in nature, worse with deep inspiration, continues to have shortness of breath although his chest x-ray showed improvement in his pulmonary edema. Considering the new complaint, I am recomme nding a CT angiogram of the chest, rule out pulmonary embolism. Basic metabolic profile and renal profile are normal. Objective - Vital Signs Vital signs: Vital Signs Temp 98.4 F 01/10/24 08:00 Pulse 68 01/10/24 08:00 Resp 18 01/10/24 08:00 BP 130/71 01/10/24 08:00 Pulse Ox 97 01/10/24 09:05 FiO2 Intake & Output 01/09/24 01/10/24 01/10/24 18:59 06:59 18:59 Intake Total 110 120 Output Total 400 Balance 110 -400 120 Intake: Oral 110 120 Output: Urine 400 Other: Voiding Method Bedside Commode Urinal - Exam General: Revealed a 73-year-old white male in no distress however patient is on 2 L nasal cannula Skin: Skin is warm and dry and no rashes or lesions are noted. Eye: Pupils are equal, round and reactive to light, extra-ocular movements are intact; there is normal conjunctiva bilaterally. Ears, nose, mouth and throat: There are moist mucous membranes and no oral lesions. Neck: The neck is supple, there is no tenderness or JVD. Cardiovascular: There is a regular rate and rhythm. No murmur, rub or gallop is appreciated. Respiratory: Diminished breath sound bilaterally no rhonchi no wheezes no crackles Gastrointestinal: Soft, non-distended, non-tender abdomen without masses or organomegaly noted. There is no rebound or guarding present. Bowel sounds are unremarkable. Back: There is no tenderness to palpation in the midline. There is no obvious deformity. Musculoskeletal: Normal ROM, no tenderness, There is no pedal edema. There is no calf tenderness or swelling. No cords were appreciated. Neurological: Alert and oriented x 3, very minimal weakness in the right upper extremity. 4/5. Psychiatric: Normal mood affect and no mental status examination - Labs CBC & Chem 7: 01/06/24 10:52 01/09/24 07:33 Labs: Abnormal Lab Results - Last 24 Hours (Table) 01/09/24 Range/Units 12:24 POC Glucose (mg/dL) 121 H (70-110) mg/dL Microbiology - Last 24 Hours (Table) 01/04/24 12:20 Blood Culture - Final Blood 01/04/24 11:57 Blood Culture - Final Blood Assessment and Plan Assessment: Impression: Acute hypoxic respiratory failure secondary to acute systolic congestive heart failure and secondary to underlying COPD. Strongly suspect underlying COPD but considering his smoking history since age 11. Underlying pneumonia is not entirely ruled out although clinically felt to be less likely nonetheless considering the overall presentation I will empirically start the patient on antibiotics/Zosyn, patient has elevated procalcitonin level History of coronary artery disease, previous PCI in 2012 History of CVA and TIAs, and bilateral carotid endarterectomy Benign essential hypertension Dyslipidemia Tobacco dependence syndrome History of seizure disorder Acute transaminitis secondary to hepatic congestion from congestive heart failure History of GERD without esophagitis History of peripheral vessel occlusive disease Moderate mitral regurgitation Elevated procalcitonin but no clear-cut evidence of clinical infection. Hence recommend holding on antibiotics for now Right-sided pleuritic chest pain with shortness of breath, doubt thromboembolic disease considering the patient is on Xarelto but will recommend D-dimer Recommendation: Hold on CT angiogram of the chest today, patient is on Xarelto Continue diuretics Empiric antibiotics/Zosyn for elevated procalcitonin level Continue DuoNeb updraft 4 times daily and as needed for his underlying COPD Continue Xarelto Continue aspirin and statin Continue beta-blockers Continue strict I's and O Will continue to follow Time with Patient: Less than 30
--- NOTE | 2024-01-10 17:28 | P.PN ---
Progress Note - Text Progress Note Date: 01/10/24 Patient is 73-year-old male with known history of congestive heart failure with a EF of around 40 to 45% came in with complaints of shortness of breath orthopnea found to be in congestive heart failure with extensive bilateral edema on the x-ray with highly elevated BNP of 11,000, was started on IV Lasix patient takes oral Lasix at home patient is presently on 40 IV twice daily. Patient denies any chest pain. Patient was hypoxic. Patient does have history of COPD, continues to smoke and not willing to quit smoking patient had history of coronary artery disease with stents in 2011 patient is on Xarelto but as per the chart he is on this medication for CVA known his known history of atrial fibrillation. Patient does not have any fevers does not have any sputum production. Patient is on 6 L of oxygen does not use any oxygen at home 01-06-2024 Patient is seen in follow-up today continues on 6 L high flow oxygen and reports he does not wear any oxygen outpatient. Recommend weaning FiO2 as tolerated. Patient being followed by cardiology and continued on IV Lasix considering poss ibly transitioning to oral Lasix in the next day or so for continued CHF exacerbation. Patient's lower extremity edema has improved and patient reports to urinating. Patient reports he is incontinent and wearing a brief currently. Patient with generalized weakness will have PT/OT therapy evaluate the patient. Patient also with a known history of COPD and continued nicotine dependence discussed complete tobacco cessation and will continue on breathing treatments. January 06: Decreased appetite. Up in chair. 6 L nasal cannula. Some shortness of breath. No edema. Add DuoNeb 4 times daily and Pulmicort for COPD exacerbation. Repeat chest x-ray in a.m. January 07: Patient requesting a regular diet with salt does not like low-salt diet. Diet change. 4 L nasal cannula. Some improvement in breathing. January 08: Have the patient up in a chair. Encourage oral intake. Pending rehab. Zosyn started by pulmonary for probable pneumonia January 09: Poor appetite. On IV Zosyn. Tired. 2 L nasal cannula. Discussed Active Medications Acetaminophen (Acetaminophen Tab 325 Mg Tab) 650 mg PO Q6HR PRN PRN Reason: Mild Pain or Fever > 100.5 Last Admin: 01/07/24 05:36 Dose: 650 mg Albuterol/Ipratropium (Ipratropium-Albuterol 3 Ml Neb) 3 ml INHALATION RT-QID [facility] Last Admin: 01/10/24 15:37 Dose: Not Given Aspirin (Aspirin 81 Mg) 81 mg PO DAILY [facility] Last Admin: 01/10/24 08:24 Dose: 81 mg Atorvastatin Calcium (Atorvastatin 80 Mg Tab) 80 mg PO HS [facility] [place] Last Admin: 01/09/24 20:32 Dose: 80 mg Budesonide (Budesonide 1 Mg/2 Ml Nebu) 1 mg INHALATION RT-BID [facility] [place] Last Admin: 01/10/24 09:05 Dose: Not Given Calcium Carbonate/Glycine (Calcium Carbonate 500 Mg Chewable) 1,000 mg PO QID PRN PRN Reason: Heartburn Last Admin: 01/06/24 22:30 Dose: 1,000 mg Cyanocobalamin (Cyanocobalamin 500 Mcg Tab) 500 mcg PO WEEKLY [facility] [place] Cyclobenzaprine HCl (Cyclobenzaprine 5 Mg Tab) 5 mg PO HS PRN PRN Reason: Mild Spasms Last Admin: 01/07/24 01:57 Dose: 5 mg Dapagliflozin (Dapagliflozin Propanediol 10 Mg Tablet) 10 mg PO DAILY [facility] [place] Last Admin: 01/10/24 08:24 Dose: 10 mg Donepezil HCl (Donepezil 10 Mg Tab) 10 mg PO HS [facility] [place] Last Admin: 01/09/24 20:33 Dose: 10 mg Fluoxetine HCl (Fluoxetine Hcl 20 Mg Cap) 20 mg PO W/LUNCH [facility] [place] Last Admin: 01/10/24 08:23 Dose: 20 mg Fluticasone Propionate (Fluticasone 50mcg/[place] Nasal 16gm) 1 spray EA NOSTRIL DAILY [facility] [place] Last Admin: 01/10/24 08:18 Dose: Not Given Furosemide (Furosemide 40 Mg Tab) 40 mg PO DAILY [facility] [place] Last Admin: 01/10/24 08:23 Dose: 40 mg Piperacillin Sod/Tazobactam (Sod 3.375 gm/ Sodium Chloride) 100 mls @ 25 mls/hr IVPB Q8H [facility] [place] [place]; Protocol Last Admin: 01/10/24 17:15 Dose: 25 mls/hr Isosorbide Mononitrate (Isosorbide Mononitrate Er 30 Mg Tab.Er.24h) 30 mg PO DAILY [facility] [place] Last Admin: 01/10/24 08:24 Dose: 30 mg Lacosamide (Lacosamide 50 Mg Tablet) 100 mg PO BID [facility] [place] Last Admin: 01/10/24 08:23 Dose: 100 mg Lorazepam (Lorazepam 1 Mg Tab) 1 mg PO TID PRN PRN Reason: Anxiety Last Admin: 01/10/24 17:15 Dose: 1 mg Losartan Potassium (Losartan 25 Mg Tab) 25 mg PO DAILY [facility] [place] Last Admin: 01/10/24 08:24 Dose: 25 mg Metoprolol Succinate (Metoprolol Succinate (Er) 25 Mg Tab.Er.24h) 25 mg PO DAILY [facility] Last Admin: 01/10/24 08:24 Dose: 25 mg Miscellaneous Information (Potassium Replacement Protocol 1 Each Misc) 1 each MISCELLANE DAILY PRN; Protocol PRN Reason: Per Protocol Montelukast Sodium (Montelukast 10 Mg Tab) 10 mg PO [facility] Last Admin: 01/09/24 20:33 Dose: 10 mg Naloxone HCl (Naloxone 0.4 Mg/Ml 1 Ml Vial) 0.2 mg IV Q2M PRN PRN Reason: Opioid Reversal Oxycodone/Acetaminophen (Oxycodone-Apap 10-325mg 1 Each Tab) 1 each PO QID [facility] [place] Last Admin: 01/10/24 17:15 Dose: 1 each Pantoprazole Sodium (Pantoprazole 40 Mg Tablet) 40 mg PO BID [facility] [place] Last Admin: 01/10/24 08:24 Dose: 40 mg Rivaroxaban (Rivaroxaban 20 Mg Tab) 20 mg PO DAILY [facility] [place]; Protocol Last Admin: 01/10/24 08:24 Dose: 20 mg Trazodone HCl (Trazodone Hcl 100 Mg Tab) 100 mg PO [facility] Last Admin: 01/09/24 20:32 Dose: 100 mg Past medical history to include: Concussion, possible tonic-clonic seizure, coronary artery disease with stent, GERD, hyperlipidemia, essential hypertension, primary osteoarthritis, nicotine dependence.. Stroke March 2023-with residual right-sided weakness and weakness right side of the face Social history: Lives alone. Smokes a pack a day-several years. Physical examination: VITAL SIGNS: 98.1, 65, 18, 116/64, 94% on 2 L GENERAL: Reclining in bed, tired EYES: Pupils equal. Conjunctiva normal. HEENT: External appearance of nose and ears normal, oral cavity grossly normal. NECK: JVD not raised; masses not palpable. HEART: First and second heart sounds are normal; no edema. Decreased dorsalis pedis. LUNGS: Respiratory rate increased, decreased breath sounds ABDOMEN: Soft, nontender, liver spleen not palpable, no masses palpable. PSYCH: AO X 3, mood affect tired NEUROLOGICAL: Cranial nerves grossly intact. Moving all 4 limbs. Power on the right side 4/5. Flattening of right nasolabial fold. MUSCULAR skeletal: Evidence of OA. INVESTIGATIONS, reviewed in the clinical context: January 08: Potassium 4.2 creatinine 1.03 January 05: White count 14.3 hemoglobin 11.6 platelets 329 sodium 135 creatinine 1.18 2D echocardiogram: EF 40 to 45%. Moderate mitral regurgitation. Assessment and plan: -Acute hypoxic respiratory failure secondary to congestive heart failure: Much improvement Currently on 2 L nasal cannula -Acute on chronic congestive heart exacerbation from systolic dysfunction EF 40 to 45%: Euvolemic P.o. Lasix 40 mg twice daily -Probable pneumonia suspect gram-negative organism by pulmonary IV Zosyn -Elevated troponins: Likely secondary to congestive heart failure Followed by cardiology -Transaminitis secondary to hepatic congestion expected to improve with Lasix -Acute COPD exacerbationsmoker: Better DuoNeb 4 times daily. Pulmicort 1 mg twice daily -Continued ongoing nicotine dependence -Peripheral vascular disease Aspirin -Chronic low back pain/osteoarthritis on stronger opioids for long time -Chronic tonic-clonic seizures. Vimpat 100 mg twice a day. Outpatient: Neurologist Dr. Bryan -Prior history of aggressive behavior likely could be manifestation of temporal lobe seizure.: -History: Subacute stroke March 2023 Involving the right thalamus and the left parietal/occipital region. Status post TPA. Aspirin. Brillinta [place] : Negative for shunting or embolic source. Follow-up with Dr. Flaherty -Right endarterectomy patch done by Dr. Agustina Romero April 03. -Possible atrial fibrillation in 2022 at [facility] As per the patient. Xarelto -Vitamin B12 and folate deficiency B12 and folic acid supplement -Chronic nicotine dependence cigarette smoker -Coronary artery disease with stent Aspirin. -GERD PPI -Hyperlipidemia Lipitor 80 mg daily at bedtime. -Essential hypertension Toprol-XL 25 mg a day -No code -Disposition: Rehab Continue IV Zosyn. Other medications to continue. Patient again encouraged to increase oral intake.
[2024-01-11] MEDS: CYANOCOBALAMIN 500 MCG TAB PO SCH (09:10)
[2024-01-11] MEDS: FUROSEMIDE 40 MG TAB PO SCH (10:06)
--- NOTE | 2024-01-11 11:19 | P.PN ---
Subjective HISTORY OF PRESENT ILLNESS: This is a 73-year-old male with past medical history of CVA (03/30/2023) on Xarelto and multiple TIAs most recently in November 2023, seizure disorder, history of DVT, carotid artery disease status post right ICA endarterectomy with patch angioplasty in March 2023 and reported left CEA 6 years ago, hypertension, hyperlipidemia, hepatitis C, coronary artery disease with PCI in 2011, active tobacco use and dependence. We have been asked to evaluate the patient for CHF. Patient was brought into the hospital due to difficulty in breathing and hypoxia with pulse ox 70%. Patient states that he passed out yesterday not really sure why he is here. He states he has shortness of breath with activity. He denies any lower extremity edema. No palpitations, no dizziness. He denies having history of atrial fibrillation. He is not normally active since his strokes. No nausea or vomiting. No diarrhea or abdominal pain. He does not drink very much caffeine. No alcohol use. Patient is an active smoker of 2 packs/day. Regarding cardiac history, patient had a stent placed in 2011 and had a rehab therapy manager in [place] at the time but has not followed up. He denies having a lung doctor. Patient has been started on IV Lasix 40 mg every 12 hours. Patient is seen today in the emergency center waiting for bed on the cardiac stepdown unit. EKG: Sinus rhythm [address]-T wave changes. Chest x-ray: Pulmonary edema. Correlate for congestive heart failure. CT brain: Age-related atrophy and chronic small vessel ischemic change without acute intracranial process. Laboratory studies: WBC 13.2, hemoglobin 9.2. Potassium 4.7, BUN 26 creatinine 1.03. Troponin 0.705, 0.54, 0.482. Magnesium 2.5. Lactic acid 1.6. AST 364, ALT 262, alkaline phosphatase 184. proBNP 11,000. Home cardiac medications: Aspirin 81 mg daily, atorvastatin 80 mg at bedtime, Imdur 30 mg daily, Toprol-XL 25 mg daily, Xarelto 10 mg daily. Event monitor 05/08/2023 revealed sinus rhythm with PVCs, often in bigeminal pattern. Short bursts of nonsustained V. tach. [place] performed 04/01/2023 revealed no cardiac source for CVA. Echocardiogram performed 04/18/2023 revealed EF 40 to 45%. Limited study. 01/05 Patient denies any chest pain but has some pain in the right clavicle area. No palpitations no dizziness. He has been maintained on IV Lasix 40 mg every 12 hours. He has had a negative fluid balance. Weights do not appear to be accurate. Blood pressure 155/75, heart rate in the 60s, pulse ox 92% on 7 L high flow nasal cannula. Repeat blood work is not available at the time of this dictation. Echocardiogram is pending. 01/06 Patient denies having any chest pain, chest pressure or chest tightness. His breathing is better. He still has some wheezing and cough with green sputum production. He is utilizing incentive spirometry. Blood pressure 122/75, heart rate 69, pulse ox 94% on high flow nasal cannula 6 L. Repeat potassium 4.2. Yesterday, IV Lasix was transitioned to oral, patient continued on Farxiga. Echocardiogram reveals EF of 45 to 50%, moderate mitral regurgitation. 01/07 Patient states that he is still having some shortness of breath but improving. Patient continues to have cough with green sputum production and wheezing. He denies having any chest pain and nausea. Blood pressure 165/78, heart rate 74, pulse ox 97% on 4 L nasal cannula. Patient is currently maintained on oral cardiac medications. 01/09/2024 Patient examined this morning at the bedside. Patient currently denies chest pain or pressure. He reports SOB, although improving. He does report a cough with sputum production. He reports having some chest discomfort when coughing. He remains on oral diuretics. Vital signs are stable. Creatinine today stable at 1.03. proBNP 1380, down from 11,000. 01/10/2024 Patient examined this morning at bedside. Patient currently denies shortness of breath. He reports chest pain that is worse with deep inspiration, cough, and chest wall palpation. Per nursing, patient recently received Percocet for pain. Patient's vital signs are stable. 01/11/2024 Patient examined this morning at the bedside. Patient reports mild shortness of breath this morning. He also reports chest pain that is worse with deep inspiration. He does appear congested upon evaluation. Patient with elevated D-dimer. PHYSICAL EXAM: VITAL SIGNS: Reviewed. GENERAL: Well-developed in no acute distress. NECK: Supple. No JVD or thyromegaly LUNGS: Respirations even and unlabored. Lungs essentially clear to auscultation bilaterally. HEART: Regular rate and rhythm. S1 and S2 heard. EXTREMITIES: Normal range of motion. No clubbing or cyanosis. Peripheral pulses intact. No lower extremity edema ASSESSMENT: Shortness of breath Acute heart failure with mildly reduced EF, 45 to 50% Possible COPD exacerbation Elevated troponins, likely type II HI secondary to oxygen supply and demand mis match secondary to acute heart failure Elevated liver function test most likely due to liver congestion History of CVA and TIA's Seizure disorder Carotid artery disease status post endarterectomy bilaterally Hypertension Hyperlipidemia Coronary artery disease with previous PCI in 2012, no follow-up History of DVT Nicotine dependence PLAN: Continue current cardiac medications Increase Lasix to 40 mg twice a day Defer further evaluation of elevated D-dimer to primary medicine/pulmonary medicine Further recommendations pending patient course Nurse practitioner note has been reviewed by physician. Signing provider agrees with the documented findings, assessment, and plan of care documented by VICE PRESIDENT OF COMMUNICATIONS as a scribe. Objective - Vital Signs Vital signs: Vital Signs Temp 98.3 F 01/11/24 08:40 Pulse 68 01/11/24 08:40 Resp 16 01/11/24 08:40 BP 120/65 01/11/24 08:40 Pulse Ox 98 01/11/24 08:40 FiO2 Intake & Output 01/10/24 01/11/24 01/11/24 18:59 06:59 18:59 Intake Total 480 110 Output Total 101 1200 1 Balance 379 -1200 109 Intake: Oral 480 110 Output: Urine 100 1200 Stool 1 1 Other: Voiding Method External Catheter Urinal # Bowel Movements 1 - Labs CBC & Chem 7: 01/06/24 10:52 01/09/24 07:33 Labs: Abnormal Lab Results - Last 24 Hours (Table) 01/10/24 Range/Units 14:55 D-Dimer 1.91 H (<0.60) mg/L FEU
--- NOTE | 2024-01-11 14:45 | P.PN ---
Subjective Progress Note Date: 01/11/24 Principal diagnosis: Congestive heart failure. This is a 73-year-old white male with history of CVA back in March 21, 2002 3, maintained on Xarelto, patient is also known to have history of seizure disorder, TIAs, DVT, carotid artery disease and previous right carotid endarte rectomy. History of left carotid endarterectomy 6 years ago, hypertension dyslipidemia hepatitis C coronary artery disease and previous PCI in 2011, patient has been an active smoker since age 11. Patient presented to the ER with mostly 2 weeks history of lightheadedness and dizziness, and had an episode of syncope. Patient was noted to have difficulty breathing, and his O2 saturation was 70% on room air upon his initial presentation. Chest x-ray on admission clearly showed evidence of pulmonary edema, CT of the brain showed age-related atrophic changes and chronic small vessel disease changes no evidence of acute intracranial process at the time patient was seen by cardiology yesterday, and it was felt that the patient had shortness of breath secondary to acute systolic congestive heart failure and felt there may be some component of acute COPD exacerbation. Patient has been improving with diuretics, he is also on bronchodilators, during my evaluation, patient had no symptoms of shortness of breath cough or wheezing no chest pain, he was mostly concerned about his chronic dizziness lightheadedness and some chronic right- sided weakness. Patient limps upon walking. Again his chest x-ray showed evidence of pulmonary edema. His CBC was relatively normal except for a slight leukocytosis with WBC count of 14.3, procalcitonin level was elevated at 0.60, although the patient had no symptoms to suggest clinically underlying pneumonia although based on the chest x-ray it is difficult to tell the chest x-ray findings are mostly findings of pulmonary edema. Patient is receiving Lasix at 40 mg IV push twice daily, follow-up chest x-ray is pending Patient was reevaluated today on 01/07/2024, patient is about the same. Not much of a change in the last 24 hours. Remains on 6 L nasal cannula, and O2 sats 94%. Remains on Lasix at 40 mg p.o. twice daily, follow-up chest x-ray to be done tomorrow, if no improvement patient needs to be on a higher dose of diuretics. Be decided upon in the next 24 hours. In the meantime the patient is still complaining of dizziness, lightheadedness, and complaining of generalized weakness and some shortness of breath. No fever no chills no hemoptysis no chest pain. Echocardiogram showed LV dysfunction/mild and showed moderate mitral regurgitation. Reevaluated today on 01/08/2024, slight improvement in his overall congestive heart failure status, he is now on 4 L nasal cannula with O2 sats of 97%, patient feels a bit better, but not by much. Remains generally weak, remains lightheaded, patient remains on diuretics, and noted to have minimal negative fluid balance, may require higher dose of diuretics. Chest x-ray continues to show evidence of pulmonary edema. His electrolytes are normal BUN is 42 creatinine 1.18 WBC count is 14.3 hemoglobin is 11.6 Reevaluated today on 01/09/2024, patient is basically about the same. No major change in the last couple of days. Although chest x-ray is showing significant improvement in his interstitial edema. Underlying pneumonia is felt to be less likely however considering the patient procalcitonin level is elevated, I will go ahead and empirically and started the patient on antibiotics in the form of Zosyn. Patient is on 4 L nasal cannula, went up from 2 L although chest x-ray showed improvement. Patient is afebrile, and hemodynamically stable Patient was evaluated today on 01/10/2024, patient is now complaining of new onset left-sided chest pain, pleuritic in nature, worse with deep inspiration, continues to have shortness of breath although his chest x-ray showed improvement in his pulmonary edema. Considering the new complaint, I am recommending a CT angiogram of the chest, rule out pulmonary embolism. Basic metabolic profile and renal profile are normal. This note dated January 11, 2024. 73-year-old male seen today in room 362. Currently, the patient is on 2 L of oxygen. He is getting saline at 20 cc an hour. The patient has no new complaints today. Laboratory data are from January 09. His D-dimer was 1.91. N- terminal proBNP from a few days ago at 1380. Cultures are currently negative. Chest x-ray revealed some diffuse infiltrates. Objective - Vital Signs Vital signs: Vital Signs Temp 98.3 F 01/11/24 08:40 Pulse 89 01/11/24 11:30 Resp 18 01/11/24 11:30 BP 112/56 06/24/24 11:30 Pulse Ox 92 L 01/11/24 11:30 FiO2 Intake & Output 01/10/24 01/11/24 01/11/24 18:59 06:59 18:59 Intake Total 480 220 Output Total 101 1200 1 Balance 379 -1200 219 Intake: Oral 480 220 Output: Urine 100 1200 Stool 1 1 Other: Voiding Method External Catheter Urinal # Bowel Movements 1 - Exam No acute distress, oriented 3. No respiratory distress. The patient remains on 2 L of oxygen. HEENT examination is grossly unremarkable. Mucous membranes are moist. No oral lesions. Neck supple. Full range of motion. No adenopathy thyromegaly or neck vein distention. Cardiovascular examination reveals regular rhythm rate. S1-S2 normal. No S3 or S4. No discernible murmur noted. Heart rate is 89 bpm. Lungs reveal clear breath sounds. Breath sounds are equal bilaterally. No adventitious lung sounds including wheezes rhonchi or crackles. Breath sounds are diminished throughout. Abdomen soft bowel sounds are heard. No masses or tenderness. Extremities are intact. No cyanosis clubbing or edema. Skin is without rash or lesion. Neurologic examination is brief but nonfocal. - Labs CBC & Chem 7: 01/06/24 10:52 01/09/24 07:33 Labs: Abnormal Lab Results - Last 24 Hours (Table) 01/10/24 Range/Units 14:55 D-Dimer 1.91 H (<0.60) mg/L FEU Assessment and Plan Assessment: Acute hypoxemic respiratory failure secondary to acute systolic CHF, and COPD. Probable COPD, from many years of tobacco use. Possible underlying pneumonia. History of coronary artery disease, with previous PCI in 2011. History of CVA/TIA, with bilateral carotid endarterectomies. Benign essential hypertension. Hyperlipidemia. Tobacco dependence syndrome. History of seizure disorder. Congestive hepatopathy. History of gastroesophageal reflux disease without esophagitis. History of peripheral vascular occlusive disease. History of moderate mitral regurgitation. Right-sided pleuritic chest pain, with shortness of breath. Plan: Plan dated January 11, 2024. The patient continues on diuretics, and Xarelto. The patient also continues on antibiotics, for possible underlying pneumonia. In addition, the patient continues on breathing treatments, aspirin, statins, beta-blockers, and other appropriate medications. Labs, x-rays, and medications are reviewed. The patient is overall prognosis remains guarded. No additional recommendations are made at this time. Time with Patient: Less than 30
[2024-01-11 17:10] VITALS: RESP 16
--- NOTE | 2024-01-11 17:26 | P.PN ---
Progress Note - Text Progress Note Date: 01/11/24 Patient is 73-year-old male with known history of congestive heart failure with a EF of around 40 to 45% came in with complaints of shortness of breath orthopnea found to be in congestive heart failure with extensive bilateral edema on the x-ray with highly elevated BNP of 11,000, was started on IV Lasix patient takes oral Lasix at home patient is presently on 40 IV twice daily. Patient denies any chest pain. Patient was hypoxic. Patient does have history of COPD, continues to smoke and not willing to quit smoking patient had history of coronary artery disease with stents in 2011 patient is on Xarelto but as per the chart he is on this medication for CVA known his known history of atrial fibrillation. Patient does not have any fevers does not have any sputum production. Patient is on 6 L of oxygen does not use any oxygen at home 01-06-2024 Patient is seen in follow-up today continues on 6 L high flow oxygen and reports he does not wear any oxygen outpatient. Recommend weaning FiO2 as tolerated. Patient being followed by cardiology and continued on IV Lasix considering poss ibly transitioning to oral Lasix in the next day or so for continued CHF exacerbation. Patient's lower extremity edema has improved and patient reports to urinating. Patient reports he is incontinent and wearing a brief currently. Patient with generalized weakness will have PT/OT therapy evaluate the patient. Patient also with a known history of COPD and continued nicotine dependence discussed complete tobacco cessation and will continue on breathing treatments. January 06: Decreased appetite. Up in chair. 6 L nasal cannula. Some shortness of breath. No edema. Add DuoNeb 4 times daily and Pulmicort for COPD exacerbation. Repeat chest x-ray in a.m. January 07: Patient requesting a regular diet with salt does not like low-salt diet. Diet change. 4 L nasal cannula. Some improvement in breathing. January 08: Have the patient up in a chair. Encourage oral intake. Pending rehab. Zosyn started by pulmonary for probable pneumonia January 09: Poor appetite. On IV Zosyn. Tired. 2 L nasal cannula. Discussed January 10: Patient is a good breakfast today. Revision IV Zosyn. Breathing better. Pending transfer to rehab. Lasix was increased by cardiology to 40 twice daily. Active Medications Acetaminophen (Acetaminophen Tab 325 Mg Tab) 650 mg PO Q6HR PRN PRN Reason: Mild Pain or Fever > 100.5 Last Admin: 01/11/24 05:18 Dose: 650 mg Albuterol/Ipratropium (Ipratropium-Albuterol 3 Ml Neb) 3 ml INHALATION RT-QID [facility] Last Admin: 01/11/24 15:57 Dose: Not Given Aspirin (Aspirin 81 Mg) 81 mg PO DAILY [facility] Last Admin: 01/11/24 09:10 Dose: 81 mg Atorvastatin Calcium (Atorvastatin 80 Mg Tab) 80 mg PO HS [facility] Last Admin: 01/10/24 21:39 Dose: 80 mg Budesonide (Budesonide 1 Mg/2 Ml Nebu) 1 mg INHALATION RT-BID [facility] Last Admin: 01/11/24 07:52 Dose: Not Given Calcium Carbonate/Glycine (Calcium Carbonate 500 Mg Chewable) 1,000 mg PO QID PRN PRN Reason: Heartburn Last Admin: 01/06/24 22:30 Dose: 1,000 mg Cyanocobalamin (Cyanocobalamin 500 Mcg Tab) 500 mcg PO WEEKLY [facility] Last Admin: 01/11/24 09:10 Dose: 500 mcg Cyclobenzaprine HCl (Cyclobenzaprine 5 Mg Tab) 5 mg PO HS PRN PRN Reason: Mild Spasms Last Admin: 01/11/24 05:18 Dose: 5 mg Dapagliflozin (Dapagliflozin Propanediol 10 Mg Tablet) 10 mg PO DAILY [facility] Last Admin: 01/11/24 09:11 Dose: 10 mg Donepezil HCl (Donepezil 10 Mg Tab) 10 mg PO HS [facility] Last Admin: 01/10/24 21:39 Dose: 10 mg Fluoxetine HCl (Fluoxetine Hcl 20 Mg Cap) 20 mg PO W/LUNCH [facility] Last Admin: 01/11/24 13:18 Dose: 20 mg Fluticasone Propionate (Fluticasone 50mcg/[place] Nasal 16gm) 1 spray EA NOSTRIL DAILY [facility] Last Admin: 01/11/24 09:13 Dose: Not Given Furosemide (Furosemide 40 Mg Tab) 40 mg PO BID@0900,1600 [facility] Last Admin: 01/11/24 10:06 Dose: Not Given Piperacillin Sod/Tazobactam (Sod 3.375 gm/ Sodium Chloride) 100 mls @ 25 mls/hr IVPB Q8H [facility]; Protocol Last Admin: 01/11/24 09:11 Dose: 25 mls/hr Isosorbide Mononitrate (Isosorbide Mononitrate Er 30 Mg Tab.Er.24h) 30 mg PO DAILY [facility] Last Admin: 01/11/24 09:11 Dose: 30 mg Lacosamide (Lacosamide 50 Mg Tablet) 100 mg PO BID [facility] Last Admin: 01/11/24 09:10 Dose: 100 mg Lorazepam (Lorazepam 1 Mg Tab) 1 mg PO TID PRN PRN Reason: Anxiety Last Admin: 01/11/24 14:38 Dose: 1 mg Losartan Potassium (Losartan 25 Mg Tab) 25 mg PO DAILY [facility] Last Admin: 01/11/24 09:10 Dose: 25 mg Metoprolol Succinate (Metoprolol Succinate (Er) 25 Mg Tab.Er.24h) 25 mg PO DAILY [facility] Last Admin: 01/11/24 09:11 Dose: 25 mg Miscellaneous Information (Potassium Replacement Protocol 1 Each Misc) 1 each MISCELLANE DAILY PRN; Protocol PRN Reason: Per Protocol Montelukast Sodium (Montelukast 10 Mg Tab) [address] [facility] Last Admin: 01/10/24 21:40 Dose: 10 mg Naloxone HCl (Naloxone 0.4 Mg/Ml 1 Ml Vial) 0.2 mg IV Q2M PRN PRN Reason: Opioid Reversal Oxycodone/Acetaminophen (Oxycodone-Apap 10-325mg 1 Each Tab) 1 each PO QID [facility] Last Admin: 01/11/24 13:18 Dose: 1 each Pantoprazole Sodium (Pantoprazole 40 Mg Tablet) 40 mg PO BID [facility] Last Admin: 01/11/24 09:10 Dose: 40 mg Rivaroxaban (Rivaroxaban 20 Mg Tab) 20 mg PO DAILY [facility]; Protocol Last Admin: 01/11/24 09:09 Dose: 20 mg Trazodone HCl (Trazodone Hcl 100 Mg Tab) [address] [facility] Last Admin: 01/10/24 21:40 Dose: 100 mg Past medical history to include: Concussion, possible tonic-clonic seizure, coronary artery disease with stent, G ERD, hyperlipidemia, essential hypertension, primary osteoarthritis, nicotine dependence.. Stroke March 2023-with residual right-sided weakness and weakness right side of the face Social history: Lives alone. Smokes a pack a day-several years. Physical examination: VITAL SIGNS: 98.2, 61, 16, 1 one 3 x 70, 98% on 2 L GENERAL: Reclining in bed, looking better EYES: Pupils equal. Conjunctiva normal. HEENT: External appearance of nose and ears normal, oral cavity grossly normal. NECK: JVD not raised; masses not palpable. HEART: First and second heart sounds are normal; no edema. Decreased dorsalis pedis. LUNGS: Respiratory rate increased, decreased breath sounds ABDOMEN: Soft, nontender, liver spleen not palpable, no masses palpable. PSYCH: AO X 3, mood affect tired NEUROLOGICAL: Cranial nerves grossly intact. Moving all 4 limbs. Power on the right side 4/5. Flattening of right nasolabial fold. MUSCULAR skeletal: Evidence of OA. INVESTIGATIONS, reviewed in the clinical context: January 08: Potassium 4.2 creatinine 1.03 January 05: White count 14.3 hemoglobin 11.6 platelets 329 sodium 135 creatinine 1.18 2D echocardiogram: EF 40 to 45%. Moderate mitral regurgitation. Assessment and plan: -Acute hypoxic respiratory failure secondary to congestive heart failure: Much improvement Currently on 2 L nasal cannula -Acute on chronic congestive heart exacerbation from systolic dysfunction EF 40 to 45%: Euvolemic P.o. Lasix 40 mg twice daily -Probable pneumonia suspect gram-negative organism by pulmonary IV Zosyn -Elevated troponins: Likely secondary to congestive heart failure Followed by cardiology -Transaminitis secondary to hepatic congestion expected to improve with Lasix -Acute COPD exacerbationsmoker: Better DuoNeb 4 times daily. Pulmicort 1 mg twice daily -Continued ongoing nicotine dependence -Peripheral vascular disease Aspirin -Chronic low back pain/osteoarthritis on stronger opioids for long time -Chronic tonic-clonic seizures. Vimpat 100 mg twice a day. Outpatient: Neurologist Dr. Bryan -Prior history of aggressive behavior likely could be manifestation of temporal lobe seizure.: -History: Subacute stroke March 2023 Involving the right thalamus and the left parietal/occipital region. Status post TPA. Aspirin. Brillinta [place] : Negative for shunting or embolic source. Follow-up with Dr. Flaherty -Right endarterectomy patch done by Dr. Agustina Romero April 03. -Possible atrial fibrillation in 2022 at [facility] As per the patient. Xarelto -Vitamin B12 and folate deficiency B12 and folic acid supplement -Chronic nicotine dependence cigarette smoker -Coronary artery disease with stent Aspirin. -GERD PPI -Hyperlipidemia Lipitor 80 mg daily at bedtime. -Essential hypertension Toprol-XL 25 mg a day -No code -Disposition: Rehab Continue current treatment plan. Patient will be going to rehab
[2024-01-12 08:16] VITALS: BP 177/79; PULSE 68; TEMP 98.1
--- NOTE | 2024-01-12 11:44 | P.PN ---
Subjective HISTORY OF PRESENT ILLNESS: This is a 73-year-old male with past medical history of CVA (03/30/2023) on Xarelto and multiple TIAs most recently in November 2023, seizure disorder, history of DVT, carotid artery disease status post right ICA endarterectomy with patch angioplasty in March 2023 and reported left CEA 6 years ago, hypertension, hyperlipidemia, hepatitis C, coronary artery disease with PCI in 2011, active tobacco use and dependence. We have been asked to evaluate the patient for CHF. Patient was brought into the hospital due to difficulty in breathing and hypoxia with pulse ox 70%. Patient states that he passed out yesterday not really sure why he is here. He states he has shortness of breath with activity. He denies any lower extremity edema. No palpitations, no dizziness. He denies having history of atrial fibrillation. He is not normally active since his strokes. No nausea or vomiting. No diarrhea or abdominal pain. He does not drink very much caffeine. No alcohol use. Patient is an active smoker of 2 packs/day. Regarding cardiac history, patient had a stent placed in 2011 and had a surgical instrument maker in [place] at the time but has not followed up. He denies having a lung doctor. Patient has been started on IV Lasix 40 mg every 12 hours. Patient is seen today in the emergency center waiting for bed on the cardiac stepdown unit. EKG: Sinus rhythm [address]-T wave changes. Chest x-ray: Pulmonary edema. Correlate for congestive heart failure. CT brain: Age-related atrophy and chronic small vessel ischemic change without acute intracranial process. Laboratory studies: WBC 13.2, hemoglobin 9.2. Potassium 4.7, BUN 26 creatinine 1.03. Troponin 0.705, 0.54, 0.482. Magnesium 2.5. Lactic acid 1.6. AST 364, ALT 262, alkaline phosphatase 184. proBNP 11,000. Home cardiac medications: Aspirin 81 mg daily, atorvastatin 80 mg at bedtime, Imdur 30 mg daily, Toprol-XL 25 mg daily, Xarelto 10 mg daily. Event monitor 05/08/2023 revealed sinus rhythm with PVCs, often in bigeminal pattern. Short bursts of nonsustained V. tach. IS[place] performed 04/01/2023 revealed no cardiac source for CVA. Echocardiogram performed 04/18/2023 revealed EF 40 to 45%. Limited study. 01/05 Patient denies any chest pain but has some pain in the right clavicle area. No palpitations no dizziness. He has been maintained on IV Lasix 40 mg every 12 hours. He has had a negative fluid balance. Weights do not appear to be accurate. Blood pressure 155/75, heart rate in the 60s, pulse ox 92% on 7 L high flow nasal cannula. Repeat blood work is not available at the time of this dictation. Echocardiogram is pending. 01/06 Patient denies having any chest pain, chest pressure or chest tightness. His breathing is better. He still has some wheezing and cough with green sputum production. He is utilizing incentive spirometry. Blood pressure 122/75, heart rate 69, pulse ox 94% on high flow nasal cannula 6 L. Repeat potassium 4.2. Yesterday, IV Lasix was transitioned to oral, patient continued on Farxiga. Echocardiogram reveals EF of 45 to 50%, moderate mitral regurgitation. 01/07 Patient states that he is still having some shortness of breath but improving. Patient continues to have cough with green sputum production and wheezing. He denies having any chest pain and nausea. Blood pressure 165/78, heart rate 74, pulse ox 97% on 4 L nasal cannula. Patient is currently maintained on oral cardiac medications. 01/09/2024 Patient examined this morning at the bedside. Patient currently denies chest pain or pressure. He reports SOB, although improving. He does report a cough with sputum production. He reports having some chest discomfort when coughing. He remains on oral diuretics. Vital signs are stable. Creatinine today stable at 1.03. proBNP 1380, down from 11,000. 01/10/2024 Patient examined this morning at bedside. Patient currently denies shortness of breath. He reports chest pain that is worse with deep inspiration, cough, and chest wall palpation. Per nursing, patient recently received Percocet for pain. Patient's vital signs are stable. 01/11/2024 Patient examined this morning at the bedside. Patient reports mild shortness of breath this morning. He also reports chest pain that is worse with deep inspiration. He does appear congested upon evaluation. Patient with elevated D-dimer. 01/12/2024 Patient examined this morning at the bedside. Patient currently denies chest pain or pressure. He denies shortness of breath. Vital signs are stable. PHYSICAL EXAM: VITAL SIGNS: Reviewed. GENERAL: Well-developed in no acute distress. NECK: Supple. No JVD or thyromegaly LUNGS: Respirations even and unlabored. Lungs essentially clear to auscultation bilaterally. HEART: Regular rate and rhythm. S1 and S2 heard. EXTREMITIES: Normal range of motion. No clubbing or cyanosis. Peripheral pulses intact. No lower extremity edema ASSESSMENT: Shortness of breath Acute heart failure with mildly reduced EF, 45 to 50% Possible COPD exacerbation Elevated troponins, likely type II NE secondary to oxygen supply and demand mismatch secondary to acute heart failure Elevated liver function test most likely due to liver congestion History of CVA and TIA's Seizure disorder Carotid artery disease status post endarterectomy bilaterally Hypertension Hyperlipidemia Coronary artery disease with previous PCI in 2011, no follow-up History of DVT Nicotine dependence PLAN: Continue current cardiac medications Patient is stable from a cardiac standpoint with no further inpatient recommendations We will sign off. Please reconsult if needed. Nurse practitioner note has been reviewed by physician. Signing provider agrees with the documented findings, assessment, and plan of care documented by SR. [employer] as a scribe. Objective - Vital Signs Vital signs: Vital Signs Temp 98.1 F 01/12/24 08:14 Pulse 68 01/12/24 10:02 Resp 16 01/12/24 10:02 BP 177/79 01/12/24 08:14 Pulse Ox 96 01/12/24 08:14 FiO2 Intake & Output 01/11/24 01/12/24 01/12/24 18:59 06:59 18:59 Intake Total 220 Output Total 601 1050 1100 Balance -381 -1050 -1100 Weight 71.3 kg Intake: Oral 220 Output: Urine 600 1050 1100 Stool 1 Other: Voiding Method Urinal Urinal Urinal - Labs CBC & Chem 7: 01/06/24 10:52 01/09/24 07:33
--- NOTE | 2024-01-12 12:38 | P.DS ---
Providers Date of admission: 01/04/24 13:48 Expected date of discharge: 01/12/24 Attending physician: Stephane El Consults: 01/06/24 10:56 Consult Physician Routine Consulting Provider: Jessica Wade Consult Reason/Comments: copd Do you want consulting provider notified?: Yes Primary care physician: [facility] Course: Patient is 73-year-old male with known history of congestive heart failure with a EF of around 40 to 45% came in with complaints of shortness of breath orthopnea found to be in congestive heart failure with extensive bilateral edema on the x-ray with highly elevated BNP of 11,000, was started on IV Lasix patient takes oral Lasix at home patient is presently on 40 IV twice daily. Patient denies any chest pain. Patient was hypoxic. Patient does have history of COPD, continues to smoke and not willing to quit smoking patient had history of coronary artery disease with stents in 2011 patient is on Xarelto but as per the chart he is on this medication for CVA known his known history of atrial fibrillation. Patient does not have any fevers does not have any sputum production. Patient is on 6 L of oxygen does not use any oxygen at home 01-06-2024 Patient is seen in follow-up today continues on 6 L high flow oxygen and reports he does not wear any oxygen outpatient. Recommend weaning FiO2 as tolerated. Patient being followed by cardiology and continued on IV Lasix considering possibly transitioning to oral Lasix in the next day or so for continued CHF exacerbation. Patient's lower extremity edema has improved and patient reports to urinating. Patient reports he is incontinent and wearing a brief currently. Patient with generalized weakness will have PT/OT therapy evaluate the patient. Patient also with a known history of COPD and continued nicotine dependence discussed complete tobacco cessation and will continue on breathing treatments. January 06: Decreased appetite. Up in chair. 6 L nasal cannula. Some shortness of breath. No edema. Add DuoNeb 4 times daily and Pulmicort for COPD exacerbation. Repeat chest x-ray in a.m. January 07: Patient requesting a regular diet with salt does not like low-salt diet. Diet change. 4 L nasal cannula. Some improvement in breathing. January 08: Have the patient up in a chair. Encourage oral intake. Pending rehab. Zosyn started by pulmonary for probable pneumonia January 09: Poor appetite. On IV Zosyn. Tired. 2 L nasal cannula. Discussed January 10: Patient is a good breakfast today. Revision IV Zosyn. Breathing better. Pending transfer to rehab. Lasix was increased by cardiology to 40 twice daily. January 11: Breathing stable. Oral intake fluctuates. Will discharge to rehab [facility] revealed. Encourage oral intake. Complete a short course of Augmentin. Discussed with patient Discussion and discharge planning more than 35 minutes Past medical history to include: Concussion, possible tonic-clonic seizure, coronary artery disease with stent, GERD, hyperlipidemia, essential hypertension, primary osteoarthritis, nicotine dependence.. Stroke March 2023-with residual right-sided weakness and weakness right side of the face Social history: Lives alone. Smokes a pack a day-several years. Physical examination: VITAL SIGNS: 98.1, 68, 16, 137 x 79, 96% on 2 L GENERAL: Reclining in bed, a bit tired EYES: Pupils equal. Conjunctiva normal. HEENT: External appearance of nose and ears normal, oral cavity grossly normal. NECK: JVD not raised; masses not palpable. HEART: First and second heart sounds are normal; no edema. Decreased dorsalis pedis. LUNGS: Respiratory rate increased, decreased breath sounds ABDOMEN: Soft, nontender, liver spleen not palpable, no masses palpable. PSYCH: AO X 3, mood affect tired NEUROLOGICAL: Cranial nerves grossly intact. Moving all 4 limbs. Power on the right side 4/5. Flattening of right nasolabial fold. MUSCULAR skeletal: Evidence of OA. INVESTIGATIONS, reviewed in the clinical context: January 08: Potassium 4.2 creatinine 1.03 January 05: White count 14.3 hemoglobin 11.6 platelets 329 sodium 135 creatinine 1.18 2D echocardiogram: EF 40 to 45%. Moderate mitral regurgitation. Assessment and plan: -Acute hypoxic respiratory failure secondary to congestive heart failure: Much improvement Currently on 2 L nasal cannula -Acute on chronic congestive heart exacerbation from systolic dysfunction EF 40 to 45%: Euvolemic P.o. Lasix 40 mg twice daily -Probable pneumonia suspect gram-negative organism by pulmonary IV Zosyn-3 more days of Augmentin -Elevated troponins: Likely secondary to congestive heart failure Followed by cardiology -Transaminitis secondary to hepatic congestion expected to improve with Lasix -Acute COPD exacerbationsmoker: Better DuoNeb 4 times daily. Pulmicort 1 mg twice daily -Continued ongoing nicotine dependence -Peripheral vascular disease Aspirin -Chronic low back pain/osteoarthritis on stronger opioids for long time -Chronic tonic-clonic seizures. Vimpat 100 mg twice a day. Outpatient: Neurologist Dr. Bryan -Prior history of aggressive behavior likely could be manifestation of temporal lobe seizure.: -History: Subacute stroke March 2023 Involving the right thalamus and the left parietal/occipital region. Status post TPA. Aspirin. Brillinta [place] : Negative for shunting or embolic source. Follow-up with Dr. Flaherty -Right endarterectomy patch done by Dr. Agustina Romero April 03. -Possible atrial fibrillation in 2022 at [facility] As per the patient. Xarelto -Vitamin B12 and folate deficiency B12 and folic acid supplement -Chronic nicotine dependence cigarette smoker -Coronary artery disease with stent Aspirin. -GERD PPI -Hyperlipidemia Lipitor 80 mg daily at bedtime. -Essential hypertension Toprol-XL 25 mg a day -No code -Disposition: Rehab at [facility] Plan - Discharge Summary New Discharge Prescriptions: New Amoxic-Pot Clav 875-125Mg [Augmentin 875-125] 1 tab PO BID #6 tab Dapagliflozin Propanediol [Farxiga] 10 mg PO DAILY tab Furosemide [Lasix] 40 mg PO BID@0900,1600 tab Budesonide [Pulmicort] 1 mg INHALATION RT-BID ml Acetaminophen Tab [Tylenol] 650 mg PO Q6HR PRN tab PRN Reason: Mild Pain Or Fever > 100.5 Rivaroxaban [Xarelto] 20 mg PO DAILY tab Losartan [Cozaar] 25 mg PO DAILY tab Ipratropium-Albuterol Nebulize [Duoneb 0.5 mg-3 mg/3 ml Soln] 3 ml INHALATION RT-QID each Continue Isosorbide Mononitrate ER [Imdur] 30 mg PO DAILY Donepezil [Aricept] 10 mg PO HS Montelukast [Singulair] 10 mg PO HS traZODone HCL 100 mg PO HS SUMAtriptan succinate 50 mg PO DAILY PRN PRN Reason: Migraine Headache Metoprolol Succinate (ER) [Toprol XL] 25 mg PO DAILY Aspirin 81 mg PO DAILY #30 tab LORazepam [Ativan] 1 mg PO TID PRN #9 tab PRN Reason: Anxiety Pantoprazole Sodium [Protonix] 20 mg PO BID Cyclobenzaprine [Flexeril] 10 mg PO HS Atorvastatin [Lipitor] 80 mg PO HS #30 tab Fluticasone Nasal Spencer [Flonase Nasal Spencer] 1 spray EA NOSTRIL DAILY FLUoxetine HCL [PROzac] 20 mg PO W/LUNCH Folic Acid 1 mg PO DAILY #30 tab Cyanocobalamin [Vitamin B-12] 500 mcg PO WEEKLY #30 tablet Lacosamide [Vimpat] 100 mg PO BID #60 tab Changed oxyCODONE-APAP 10-325MG [Percocet 10-325 mg] 1 tab PO QID PRN #12 tab PRN Reason: Pain Discontinued Rivaroxaban [Xarelto] 10 mg PO DAILY #30 tab Discharge Medication List Isosorbide Mononitrate ER [Imdur] 30 mg PO DAILY 09/07/17 [History] Donepezil [Aricept] 10 mg PO HS 04/11/19 [History] Cyclobenzaprine [Flexeril] 10 mg PO HS 03/22/23 [History] Pantoprazole Sodium [Protonix] 20 mg PO BID 03/22/23 [History] Atorvastatin [Lipitor] 80 mg PO HS #30 tab 04/06/23 [Rx] FLUoxetine HCL [PROzac] 20 mg PO W/LUNCH 11/27/23 [History] Fluticasone Nasal Spencer [Flonase Nasal Spencer] 1 spray EA NOSTRIL DAILY 11/27/23 [History] Metoprolol Succinate (ER) [Toprol XL] 25 mg PO DAILY 11/27/23 [History] Montelukast [Singulair] 10 mg PO HS 11/27/23 [History] SUMAtriptan succinate 50 mg PO DAILY PRN 11/27/23 [History] traZODone HCL 100 mg PO HS 11/27/23 [History] Aspirin 81 mg PO DAILY #30 tab 12/02/23 [Rx] Cyanocobalamin [Vitamin B-12] 500 mcg PO WEEKLY #30 tablet 12/02/23 [Rx] Folic Acid 1 mg PO DAILY #30 tab 12/02/23 [Rx] Acetaminophen Tab [Tylenol] 650 mg PO Q6HR PRN tab 01/12/24 [Rx] Amoxic-Pot Clav 875-125Mg [Augmentin 875-125] 1 tab PO BID #6 tab 01/12/24 [Rx] Budesonide [Pulmicort] 1 mg INHALATION RT-BID ml 01/12/24 [Rx] Dapagliflozin Propanediol [Farxiga] 10 mg PO DAILY tab 01/12/24 [Rx] Furosemide [Lasix] 40 mg PO BID@0900,1600 tab 01/12/24 [Rx] Ipratropium-Albuterol Nebulize [Duoneb 0.5 mg-3 mg/3 ml Soln] 3 ml INHALATION RT-QID each 01/12/24 [Rx] LORazepam [Ativan] 1 mg PO TID PRN #9 tab 01/12/24 [Rx] Lacosamide [Vimpat] 100 mg PO BID #60 tab 01/12/24 [Rx] Losartan [Cozaar] 25 mg PO DAILY tab 01/12/24 [Rx] Rivaroxaban [Xarelto] 20 mg PO DAILY tab 01/12/24 [Rx] oxyCODONE-APAP 10-325MG [Percocet 10-325 mg] 1 tab PO QID PRN #12 tab 01/12/24 [Rx] Follow up Appointment(s)/Referral(s): Jessica Wade MD [STAFF PHYSICIAN] - 10 Days Rob Lofton MD [STAFF PHYSICIAN] - 10 Days Aaron Felix MD [Primary Care Provider] - 1-2 days
--- NOTE | 2024-01-12 12:47 | P.PN ---
Subjective Progress Note Date: 01/12/24 Principal diagnosis: Congestive heart failure. This is a 73-year-old white male with history of CVA back in March 21, 2002 3, maintained on Xarelto, patient is also known to have history of seizure disorder, TIAs, DVT, carotid artery disease and previous right carotid endarte rectomy. History of left carotid endarterectomy 6 years ago, hypertension dyslipidemia hepatitis C coronary artery disease and previous PCI in 2011, patient has been an active smoker since age 11. Patient presented to the ER with mostly 2 weeks history of lightheadedness and dizziness, and had an episode of syncope. Patient was noted to have difficulty breathing, and his O2 saturation was 70% on room air upon his initial presentation. Chest x-ray on admission clearly showed evidence of pulmonary edema, CT of the brain showed age-related atrophic changes and chronic small vessel disease changes no evidence of acute intracranial process at the time patient was seen by cardiology yesterday, and it was felt that the patient had shortness of breath secondary to acute systolic congestive heart failure and felt there may be some component of acute COPD exacerbation. Patient has been improving with diuretics, he is also on bronchodilators, during my evaluation, patient had no symptoms of shortness of breath cough or wheezing no chest pain, he was mostly concerned about his chronic dizziness lightheadedness and some chronic right- sided weakness. Patient limps upon walking. Again his chest x-ray showed evidence of pulmonary edema. His CBC was relatively normal except for a slight leukocytosis with WBC count of 14.3, procalcitonin level was elevated at 0.60, although the patient had no symptoms to suggest clinically underlying pneumonia although based on the chest x-ray it is difficult to tell the chest x-ray findings are mostly findings of pulmonary edema. Patient is receiving Lasix at 40 mg IV push twice daily, follow-up chest x-ray is pending Patient was reevaluated today on 01/07/2024, patient is about the same. Not much of a change in the last 24 hours. Remains on 6 L nasal cannula, and O2 sats 94%. Remains on Lasix at 40 mg p.o. twice daily, follow-up chest x-ray to be done tomorrow, if no improvement patient needs to be on a higher dose of diuretics. Be decided upon in the next 24 hours. In the meantime the patient is still complaining of dizziness, lightheadedness, and complaining of generalized weakness and some shortness of breath. No fever no chills no hemoptysis no chest pain. Echocardiogram showed LV dysfunction/mild and showed moderate mitral regurgitation. Reevaluated today on 01/08/2024, slight improvement in his overall congestive heart failure status, he is now on 4 L nasal cannula with O2 sats of 97%, patient feels a bit better, but not by much. Remains generally weak, remains lightheaded, patient remains on diuretics, and noted to have minimal negative fluid balance, may require higher dose of diuretics. Chest x-ray continues to show evidence of pulmonary edema. His electrolytes are normal BUN is 42 creatinine 1.18 WBC count is 14.3 hemoglobin is 11.6 Reevaluated today on 01/09/2024, patient is basically about the same. No major change in the last couple of days. Although chest x-ray is showing significant improvement in his interstitial edema. Underlying pneumonia is felt to be less likely however considering the patient procalcitonin level is elevated, I will go ahead and empirically and started the patient on antibiotics in the form of Zosyn. Patient is on 4 L nasal cannula, went up from 2 L although chest x-ray showed improvement. Patient is afebrile, and hemodynamically stable Patient was evaluated today on 01/10/2024, patient is now complaining of new onset left-sided chest pain, pleuritic in nature, worse with deep inspiration, continues to have shortness of breath although his chest x-ray showed improvement in his pulmonary edema. Considering the new complaint, I am recommending a CT angiogram of the chest, rule out pulmonary embolism. Basic metabolic profile and renal profile are normal. Progress note dated January 11, 2024. 73-year-old male seen today in room 362. Currently, the patient is on 2 L of oxygen. He is getting saline at 20 cc an hour. The patient has no new complaints today. Laboratory data are from January 09. His D-dimer was 1.91. N- terminal proBNP from a few days ago at 1380. Cultures are currently negative. Chest x-ray revealed some diffuse infiltrates. Progress note dated January 12, 2024. 73-year-old male seen today room 362. Currently, he is on room air. He continues on Zosyn. He is getting saline at 20 cc an hour. The patient states that he is feeling much better. He denies any shortness of breath, cough, wheezing, chest tightness, or phlegm production. He also denies any chest pain or pressure. No new labs today. The patient is hoping to be discharged soon. Blood cultures are currently negative. Objective - Vital Signs Vital signs: Vital Signs Temp 98.1 F 01/12/24 08:14 Pulse 68 01/12/24 10:02 Resp 16 01/12/24 10:02 BP 177/79 01/12/24 08:14 Pulse Ox 96 01/12/24 08:14 FiO2 Intake & Output 01/11/24 01/12/24 01/12/24 18:59 06:59 18:59 Intake Total 220 Output Total 601 1050 1100 Balance -381 -1050 -1100 Weight 71.3 kg Intake: Oral 220 Output: Urine 600 1050 1100 Stool 1 Other: Voiding Method Urinal Urinal Urinal - Exam No acute distress, oriented 3. No respiratory distress. The patient is on room air. HEENT examination is grossly unremarkable. Mucous membranes are moist. No oral lesions. Neck supple. Full range of motion. No adenopathy thyromegaly or neck vein distention. Cardiovascular examination reveals regular rhythm rate. S1-S2 normal. No S3 or S4. No discernible murmur noted. Heart rate is 79 bpm. Lungs reveal clear breath sounds. Breath sounds are equal bilaterally. No adventitious lung sounds including wheezes rhonchi or crackles. Breath sounds are diminished throughout. Abdomen soft bowel sounds are heard. No masses or tenderness. Extremities are intact. No cyanosis clubbing or edema. Skin is without rash or lesion. Neurologic examination is brief but nonfocal. - Labs CBC & Chem 7: 01/06/24 10:52 01/09/24 07:33 Assessment and Plan Assessment: Acute hypoxemic respiratory failure secondary to acute systolic CHF, and COPD. Probable COPD, from many years of tobacco use. Possible underlying pneumonia. History of coronary artery disease, with previous PCI in 2011. History of CVA/TIA, with bilateral carotid endarterectomies. Benign essential hypertension. Hyperlipidemia. Tobacco dependence syndrome. History of seizure disorder. Congestive hepatopathy. History of gastroesophageal reflux disease without esophagitis. History of peripheral vascular occlusive disease. History of moderate mitral regurgitation. Right-sided pleuritic chest pain, with shortness of breath. Plan: Plan dated January 11, 2024. The patient continues on diuretics, and Xarelto. The patient also continues on antibiotics, for possible underlying pneumonia. In addition, the patient continues on breathing treatments, aspirin, statins, beta-blockers, and other appropriate medications. Labs, x-rays, and medications are reviewed. The patient is overall prognosis remains guarded. No additional recommendations are made at this time. Plan dated January 12, 2024. The patient is stable from the pulmonary standpoint. The patient is currently not on any supplemental oxygen. Labs, x-rays, and medications are reviewed. The patient is being evaluated for possible discharge. The patient is stable from the pulmonary standpoint. We will continue to follow and make recomm endations, should the patient not be discharged. Prognosis is currently guarded. Time with Patient: Less than 30
[2024-01-12 14:42] VITALS: BMI 22.5
== END 2024-01-12 16:43 | DRG 280 ==
LOC: EC 11:30 → 3SCARD 13:48
PROVIDERS: ADMIT Hospitalist; ATTEND Hospitalist
DX: I11.0 Hypertensive heart disease with heart failure (principal); I50.23 Acute on chronic systolic (congestive) heart failure; I21.A1 Myocardial infarction type 2; J96.01 Acute respiratory failure with hypoxia; J15.69 Pneumonia due to other Gram-negative bacteria; I47.20 Ventricular tachycardia, unspecified; I69.351 Hemiplegia and hemiparesis following cerebral infarction affecting right dominant side; J44.1 Chronic obstructive pulmonary disease with (acute) exacerbation; J44.0 Chronic obstructive pulmonary disease with (acute) lower respiratory infection; K76.1 Chronic passive congestion of liver; E11.51 Type 2 diabetes mellitus with diabetic peripheral angiopathy without gangrene; I48.91 Unspecified atrial fibrillation; G40.909 Epilepsy, unspecified, not intractable, without status epilepticus; K76.9 Liver disease, unspecified; I34.0 Nonrheumatic mitral (valve) insufficiency; F10.11 Alcohol abuse, in remission; B19.20 Unspecified viral hepatitis C without hepatic coma; Z66 Do not resuscitate; I25.10 Atherosclerotic heart disease of native coronary artery without angina pectoris; E78.5 Hyperlipidemia, unspecified; E53.8 Deficiency of other specified B group vitamins; F41.9 Anxiety disorder, unspecified; G89.29 Other chronic pain; I25.2 Old myocardial infarction; M54.50 Low back pain, unspecified; K21.9 Gastro-esophageal reflux disease without esophagitis; R32 Unspecified urinary incontinence; M15.9 Polyosteoarthritis, unspecified; F17.210 Nicotine dependence, cigarettes, uncomplicated; Z71.6 Tobacco abuse counseling; Z79.01 Long term (current) use of anticoagulants; Z79.82 Long term (current) use of aspirin; Z79.891 Long term (current) use of opiate analgesic; Z79.899 Other long term (current) drug therapy; Z86.718 Personal history of other venous thrombosis and embolism; Z95.5 Presence of coronary angioplasty implant and graft; Z60.2 Problems related to living alone; Z88.8 Allergy status to other drugs, medicaments and biological substances; Z88.5 Allergy status to narcotic agent
CPT/HCPCS: 36415; 70450; 71045; 72082; 80048; 80053; 82803; 83605; 83735; 83880; 84132; 84145; 84484; 85025; 85027; 85379; 85610; 85730; 87040; 93005; 93306; 94640; 94760; 96365; 96366; 96375; 96376; 99291

== ENCOUNTER 2024-02-04 10:32 | Emergency (ER) | payer MEDICARE ==
[2024-02-04 10:41] VITALS: TEMP 98.1
[2024-02-04 11:48] LABS: Anisocytosis Slight; Basophils % (A) 0 %; Eosinophils # (A) 0.4 k/uL (0-0.7); Eosinophils % (A) 5 %; HCT 33.8 % (39.0-53.0); HGB 10.7 gm/dL (13.0-17.5); Hypochromasia Marked; Lymphocytes # (A) 2.2 k/uL (1.0-4.8); Lymphocytes % (A) 33 %; MCH 28.7 pg (25.0-35.0); MCHC 31.5 g/dL (31.0-37.0); Mean Platelet Volume 7.3; Monocytes # (A) 0.6 k/uL (0-1.0); Monocytes % (A) 9 %; Neutrophils # (A) 3.4 k/uL (1.3-7.7); Neutrophils % (A) 50 %; Platelet Count 242 k/uL (150-450); RBC 3.72 m/uL (4.30-5.90); RDW 17.2 % (11.5-15.5); WBC 6.8 k/uL (3.8-10.6)
--- NOTE | 2024-02-04 11:49 | XR ---
EXAMINATION TYPE: XR chest 2V DATE OF EXAM: 02/04/2024 COMPARISON: 01/09/2024 INDICATION: Syncope altered mental status TECHNIQUE: Frontal and lateral views of the chest are obtained. FINDINGS: The heart size is normal. The pulmonary vasculature is somewhat prominent. Increased perihilar and upper lobe infiltrates are present. Some mild infiltrates in the left lower l obe. Findings are nonspecific. Consider volume overload and atypical pulmonary edema. Atelectasis and pneumonia could be considered. IMPRESSION: 1. Perihilar infiltrates with extension in the right upper lobe and left lower lobe. Correlate for vo lume overload, atelectasis, or pneumonia.
--- NOTE | 2024-02-04 11:57 | ED ---
General Adult HPI - General Chief complaint: Syncope Stated complaint: fall,syncope Time Seen by Provider: 02/04/24 11:03 Source: patient, EMS, RN notes reviewed Mode of arrival: EMS Limitations: no limitations - Related Data Home Medications Medication Instructions Recorded Confirmed Isosorbide Mononitrate ER [Imdur] 30 mg PO DAILY 09/07/17 02/04/24 Donepezil [Aricept] 10 mg PO HS 04/11/19 02/04/24 Pantoprazole Sodium [Protonix] 20 mg PO BID 03/22/23 02/04/24 FLUoxetine HCL [PROzac] 20 mg PO DAILY 11/27/23 02/04/24 Fluticasone Nasal [place] [Flonase 1 spray EA NOSTRIL DAILY 11/27/23 02/04/24 Nasal [place]] Metoprolol Succinate (ER) [Toprol 25 mg PO DAILY 11/27/23 02/04/24 XL] Montelukast [Singulair] 10 mg PO HS 11/27/23 02/04/24 SUMAtriptan succinate 50 mg PO BID PRN 11/27/23 02/04/24 traZODone HCL 100 mg PO HS 11/27/23 02/04/24 ALPRAZolam [Xanax] 0.5 mg PO HS PRN 02/04/24 02/04/24 Aspirin EC [Ecotrin] 325 mg PO DAILY 02/04/24 02/04/24 Cyanocobalamin [Vitamin B-12] 500 mcg PO DAILY 02/04/24 02/04/24 Rivaroxaban [Xarelto] 10 mg PO DAILY 02/04/24 02/04/24 Temazepam [Restoril] 30 mg PO HS PRN 02/04/24 02/04/24 Previous Rx's Medication Instructions Recorded Atorvastatin [Lipitor] 80 mg PO HS #30 tab 04/06/23 LORazepam [Ativan] 1 mg PO TID PRN #9 tab 01/12/24 Lacosamide [Vimpat] 100 mg PO BID #60 tab 01/12/24 oxyCODONE-APAP 10-325MG [Percocet 1 tab PO QID PRN #12 tab 01/12/24 10-325 mg] Allergies Allergy/AdvReac Type Severity Reaction Status Date / Time alprazolam [From Xanax] Allergy Rash/Hives Verified 02/04/24 14:26 codeine Allergy Rash/Hives Verified 02/04/24 14:26 nicotine [From Nicoderm CQ] AdvReac Hallucinati Verified 02/04/24 14:26 ons zolpidem [From Ambien] AdvReac "salty" Verified 02/04/24 14:26 taste in mouth, numb mouth Review of Systems ROS Statement: Those systems with pertinent positive or pertinent negative responses have been documented in the HPI. ROS Other: All systems not noted in ROS Statement are negative. Past Medical History Past Medical History: Coronary Artery Disease (CAD), CVA/TIA, GERD/Reflux, Hyperlipidemia, Hypertension, Liver Disease, Myocardial Infarction (MN), Vascular Disorder Additional Past Medical History / Comment(s): Patient states he was admitted to the hospital January after a fall with head injury/new onset seizures and was hospitalized at [facility] in [place]. He was on life support and was extubated and had one more seizure. 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 Patient states he has Hepatitis C. Last Myocardial Infarction Date:: 2011 History of Any Multi-Drug Resistant Organisms: None Reported Past Surgical History: Heart Catheterization With Stent, Orthopedic Surgery Additional Past Surgical History / Comment(s): PCI with a total of 7 stents per pt, L caratid endartectomy, L shoulder surgery for injury, R knee/R hip/R elbow/R wrist ligament/tendon type surgeries injuries-has pins in hand, colonoscopy. Past Anesthesia/Blood Transfusion Reactions: No Reported Reaction Date of Last Stent Placement:: 2011 Past Psychological History: Anxiety Smoking Status: Current every day smoker Past Alcohol Use History: Occasional Past Drug Use History: Marijuana - Past Family History Father Family Medical History: CVA/TIA Additional Family Medical History / Comment(s): Father is from CVA. Pt states father from "stupidity." Mother Family Medical History: Diabetes Mellitus Additional Family Medical History / Comment(s): Mother from diabetes at the age of 52 yrs. Brother(s) Family Medical History: Diabetes Mellitus Additional Family Medical History / Comment(s): Brother at the age of 32 yrs from type 1 diabetes. General Exam Limitations: no limitations Course Vital Signs 07/02/04/24 02/04/24 10:38 12:04 14:06 Temperature 98.1 F Pulse Rate 61 60 63 Respiratory 18 20 20 Rate Blood Pressure 97/67 115/64 111/64 O2 Sat by Pulse 96 97 96 Oximetry Medical Decision Making - Medical Decision Making Was pt. sent in by a medical professional or institution (JULIAN Vargas, SWIMMING POOL SERVICE TECHNICIAN, urgent care, hospital, or fci...) When possible be specific @ -[No] Did you speak to anyone other than the patient for history (EMS, parent, family, police, friend...)? What history was obtained from this source @ -[No] Did you review nursing and triage notes (agree or disagree)? Why? @ -[I reviewed and agree with nursing and triage notes] Were old charts reviewed (outside hosp., previous admission, EMS record, old EKG, old radiological studies, urgent care reports/EKG's, fci records)? Report findings @ -[No old charts were reviewed] Differential Diagnosis (chest pain, altered mental status, abdominal pain women, abdominal pain men, vaginal bleeding, weakness, fever, dyspnea, syncope, headache, dizziness, GI bleed, back pain, seizure, CVA, palpatations, mental health, musculoskeletal)? @ -[not applicable] EKG interpreted by me (3pts min.). @ -[EKG at 1042 revealing sinus rhythm rate 61, WV 164, QRS 98, QTQTc [id number]] X-rays interpreted by me (1pt min.). @ -[None done] CT interpreted by me (1pt min.). @ -[None done] U/S interpreted by me (1pt. min.). @ -[None done] What testing was considered but not performed or refused? (CT, X-rays, U/S, labs)? Why? @ -[None] What meds were considered but not given or refused? Why? @ -[None] Did you discuss the management of the patient with other professionals (professionals i.e. JULIAN Vargas, SWIMMING POOL SERVICE TECHNICIAN, lab, RT, psych nurse, psychiatric social worker, table assembler metal, teacher, youth liaison officer, spring encaser)? Give summary @ -[No] Was smoking cessation discussed for >3mins.? @ -[No] Was critical care preformed (if so, how long)? @ -[No] Were there social determinants of health that impacted care today? How? (Homelessness, low income, unemployed, alcoholism, drug addiction, transportation, low edu. Level, literacy, decrease access to med. care, long term, rehab)? @ -[No] Was there de-escalation of care discussed even if they declined (Discuss DNR or withdrawal of care, Hospice)? DNR status @ -[No] What co-morbidities impacted this encounter? (DM, HTN, Smoking, COPD, CAD, Cancer, CVA, ARF, Chemo, Hep., AIDS, mental health diagnosis, sleep apnea, morbid obesity)? @ -[None] Was patient admitted / discharged? Hospital course, mention meds given and route, prescriptions, significant lab abnormalities, going to OR and other pertinent info. @ -[hospital course] Undiagnosed new problem with uncertain prognosis? @ -[No] Drug Therapy requiring intensive monitoring for toxicity (Heparin, Nitro, Insulin, Cardizem)? @ -[No] Were any procedures done? @ -[No] Diagnosis/symptom? @ -[default] Acute, or Chronic, or Acute on Chronic? @ -[default] Uncomplicated (without systemic symptoms) or Complicated (systemic symptoms)? @ -[default] Side effects of treatment? @ -[No] Exacerbation, Progression, or Severe Exacerbation? @ -[No] Poses a threat to life or bodily function? How? (Chest pain, USA, [place], pneumonia, PE, COPD, DKA, ARF, appy, cholecystitis, CVA, Diverticulitis, Homicidal, Suicidal, threat to staff... and all critical care pts) @ -[No] - Lab Data Result diagrams: 02/04/24 11:24 02/04/24 11:24 Lab Results 02/04/24 02/04/24 02/04/24 Range/Units 11:24 11:24 11:24 WBC 6.8 (3.8-10.6) k/uL RBC 3.72 L (4.30-5.90) m/uL Hgb 10.7 L (13.0-17.5) gm/dL Hct 33.8 L (39.0-53.0) % MCV 91.0 (80.0-100.0) fL MCH 28.7 (25.0-35.0) pg MCHC 31.5 (31.0-37.0) g/dL RDW 17.2 H (11.5-15.5) % Plt Count 242 (150-450) k/uL MPV 7.3 Neutrophils % 50 % Lymphocytes % 33 % Monocytes % 9 % Eosinophils % 5 % Basophils % 0 % Neutrophils # 3.4 (1.3-7.7) k/uL Lymphocytes # 2.2 (1.0-4.8) k/uL Monocytes # 0.6 (0-1.0) k/uL Eosinophils # 0.4 (0-0.7) k/uL Basophils # 0.0 (0-0.2) k/uL Hypochromasia Marked Anisocytosis Slight PT 10.6 (10.0-12.5) sec INR 1.0 (<1.2) APTT 26.0 (22.0-30.0) sec Sodium 138 (137-145) mmol/L Potassium 4.0 (3.5-5.1) mmol/L Chloride 109 H (98-107) mmol/L Carbon Dioxide 25 (22-30) mmol/L Anion Gap 4 mmol/L BUN 10 (9-20) mg/dL Creatinine 0.91 (0.66-1.25) mg/dL Est GFR (CKD-EPI)AfAm >90 (>60 ml/min/1.73 sqM) Est GFR (CKD-EPI)NonAf 83 (>60 ml/min/1.73 sqM) Glucose 91 (74-99) mg/dL Calcium 8.9 (8.4-10.2) mg/dL Phosphorus 3.2 (2.5-4.5) mg/dL Magnesium 1.9 (1.6-2.3) mg/dL Total Bilirubin 0.3 (0.2-1.3) mg/dL AST 14 L (17-59) U/L ALT 13 (4-49) U/L Alkaline Phosphatase 130 H (38-126) U/L Troponin I (0.000-0.034) ng/mL Total Protein 5.6 L (6.3-8.2) g/dL Albumin 3.3 L (3.5-5.0) g/dL 02/04/24 Range/Units 11:24 WBC (3.8-10.6) k/uL RBC (4.30-5.90) m/uL Hgb (13.0-17.5) gm/dL Hct (39.0-53.0) % MCV (80.0-100.0) fL MCH (25.0-35.0) pg MCHC (31.0-37.0) g/dL RDW (11.5-15.5) % Plt Count (150-450) k/uL MPV Neutrophils % % Lymphocytes % % Monocytes % % Eosinophils % % Basophils % % Neutrophils # (1.3-7.7) k/uL Lymphocytes # (1.0-4.8) k/uL Monocytes # (0-1.0) k/uL Eosinophils # (0-0.7) k/uL Basophils # (0-0.2) k/uL Hypochromasia Anisocytosis PT (10.0-12.5) sec INR (<1.2) APTT (22.0-30.0) sec Sodium (137-145) mmol/L Potassium (3.5-5.1) mmol/L Chloride (98-107) mmol/L Carbon Dioxide (22-30) mmol/L Anion Gap mmol/L BUN (9-20) mg/dL Creatinine (0.66-1.25) mg/dL Est GFR (CKD-EPI)AfAm (>60 ml/min/1.73 sqM) Est GFR (CKD-EPI)NonAf (>60 ml/min/1.73 sqM) Glucose (74-99) mg/dL Calcium (8.4-10.2) mg/dL Phosphorus (2.5-4.5) mg/dL Magnesium (1.6-2.3) mg/dL Total Bilirubin (0.2-1.3) mg/dL AST (17-59) U/L ALT (4-49) U/L Alkaline Phosphatase (38-126) U/L Troponin I 0.021 (0.000-0.034) ng/mL Total Protein (6.3-8.2) g/dL Albumin (3.5-5.0) g/dL Disposition Clinical Impression: Fall Disposition: HOME SELF-CARE Condition: Stable Instructions (If sedation given, give patient instructions): Head Injury (ED) Additional Instructions: Please follow up with your primary care provider. Return to the emergency department for new or worsening symptoms. Is patient prescribed a controlled substance at d/c from ED?: No Referrals: Aaron Felix MD [Primary Care Provider] - 1-2 days
[2024-02-04 12:06] VITALS: RESP 20
--- NOTE | 2024-02-04 12:06 | CT ---
EXAMINATION TYPE: CT brain cspine wo con CT DLP: 1316.6 mGycm, Automated exposure control for dose reduction was used. DATE OF EXAM: 02/04/2024 11:46 AM COMPARISON: CT brain 01/04/2024, 11/27/2023, MRI brain 04/20/23, CTA head and neck 11/27/2023. CLINICAL INDICATION:Male, 73 years old with history of syncope, head injury; syncope, head injury TECHNIQUE: Brain: Multiple axial CT images of the brain were obtained without IV contrast. Cspine: Axial CT images from the skull base to the inferior aspect of T2 we obtained without intraven ous contrast. Coronal and sagittal reformatted images were also reviewed. FINDINGS: Brain: Extra-axial spaces: No abnormal extra-axial fluid collections. Ventricular system: Within normal limits Cerebral parenchyma: Mild age appropriate cerebral atrophy. No acute intraparenchymal hemorrhage or m ass effect. The bender-white junction is well differentiated. Remote small bilateral parietal lobes re gions of encephalomalacia. Scattered hypoattenuating areas are seen within the periventricular white matter. Cerebellum: Unremarkable. Mass effect: No evidence of midline shift. Intracranial vasculature: Atherosclerotic calcifications of the intracranial vessels. Soft tissues: Normal. Calvarium/osseous structures: No depressed skull fracture. Paranasal sinuses and mastoid air cells: Clear. Visualized orbits: Orbital contents are intact. Cervical spine: Fracture: None. Osseous structures: Multilevel degenerative disc disease changes with endplate spurring and disc oste ophyte complex's. Vertebral alignment: Within normal limits. Spinal canal/Neural Foramina: Broad-based disc bulge at C2-C3 and C3-C4 without significant central c anal stenosis. Posterior disc osteophyte complex at C4-C5, C5-C6, and C6-C7 with mild central canal s tenosis. Facet joint uncovertebral joint arthropathy scattered throughout the cervical spine with josé brijesh degrees of neural foraminal stenosis. Neck soft tissues: Prevertebral soft tissues are within normal limits. Other: The airway is patent. Scattered patchy groundglass opacities identified within the right upper lobe. Thyromegaly with multinodular appearance redemonstrated. IMPRESSION: 1. No acute intracranial process. 2. Nonspecific white matter changes, likely secondary to chronic small vessel ischemic disease. 3. No evidence of cervical spine fracture. 4. Mild multilevel degenerative disc disease and facet arthropathy. 5. Redemonstrated thyromegaly with multinodular appearance. 6. Patchy airspace opacities within the right upper lobe which may represent developing pneumonia.
[2024-02-04 12:11] LABS: ALT 13 U/L (4-49); AST 14 U/L (17-59); African American GFR (CKD) >90 (>60 ml/min/1.73 sqM); Albumin 3.3 g/dL (3.5-5.0); Alkaline Phosphatase 130 U/L (38-126); Anion Gap 4 mmol/L; Blood Urea Nitrogen 10 mg/dL (9-20); Calcium 8.9 mg/dL (8.4-10.2); Carbon Dioxide 25 mmol/L (22-30); Chloride 109 mmol/L (98-107); Glucose 91 mg/dL (74-99); Magnesium 1.9 mg/dL (1.6-2.3); Non-African American GFR(CKD) 83 (>60 ml/min/1.73 sqM); Phosphorus 3.2 mg/dL (2.5-4.5); Sodium 138 mmol/L (137-145); Total Bilirubin 0.3 mg/dL (0.2-1.3); Total Protein 5.6 g/dL (6.3-8.2)
[2024-02-04 12:16] LABS: Prothrombin Time 10.6 sec (10.0-12.5)
[2024-02-04 14:08] VITALS: BP 111/64; PULSE 63
== END 2024-02-04 20:03 | disposition home or self-care (01) ==
LOC: EC 10:32
DX: R55 Syncope and collapse (principal); F17.200 Nicotine dependence, unspecified, uncomplicated; W19.XXXA Unspecified fall, initial encounter
CPT/HCPCS: 36415; 70450; 71046; 72125; 80053; 83735; 84100; 84484; 85025; 85610; 85730; 93005; 99285

== ENCOUNTER 2024-02-20 11:43 | Emergency (ER) | payer MEDICARE ==
--- NOTE | 2024-02-20 12:00 | ED ---
General Adult HPI - General Stated complaint: weakness Time Seen by Provider: 02/20/24 11:45 Source: patient, RN notes reviewed, old records reviewed - History of Present Illness Initial comments: This is a 73-year-old male who presents to the emergency department stating that on Thursday he was sitting on the couch he tipped over on the couch and landed on the cushions and he hit his head on the cushions and said he twisted his neck. Patient states he woke up on today and he had pain on the right side of his neck and complains now that his legs are shaking. Patient denies any numbness or weakness. Patient has any chest pain difficulty breathing or shortness of breath. Patient has any recent fever chills or cough or patient has a headache patient denies ever losing consciousness or having a near syncopal episode. - Related Data Home Medications Medication Instructions Recorded Confirmed Isosorbide Mononitrate ER [Imdur] 30 mg PO DAILY 09/07/17 02/04/24 Donepezil [Aricept] 10 mg PO HS 04/11/19 02/04/24 Pantoprazole Sodium [Protonix] 20 mg PO BID 03/22/23 02/04/24 FLUoxetine HCL [PROzac] 20 mg PO DAILY 11/27/23 02/04/24 Fluticasone Nasal [place] [Flonase 1 spray EA NOSTRIL DAILY 11/27/23 02/04/24 Nasal [place]] Metoprolol Succinate (ER) [Toprol 25 mg PO DAILY 11/27/23 02/04/24 XL] Montelukast [Singulair] 10 mg PO HS 11/27/23 02/04/24 SUMAtriptan succinate 50 mg PO BID PRN 11/27/23 02/04/24 traZODone HCL 100 mg PO HS 11/27/23 02/04/24 ALPRAZolam [Xanax] 0.5 mg PO HS PRN 02/04/24 02/04/24 Aspirin EC [Ecotrin] 325 mg PO DAILY 02/04/24 02/04/24 Cyanocobalamin [Vitamin B-12] 500 mcg PO DAILY 02/04/24 02/04/24 Rivaroxaban [Xarelto] 10 mg PO DAILY 02/04/24 02/04/24 Temazepam [Restoril] 30 mg PO HS PRN 02/04/24 02/04/24 Previous Rx's Medication Instructions Recorded Atorvastatin [Lipitor] 80 mg PO HS #30 tab 04/06/23 LORazepam [Ativan] 1 mg PO TID PRN #9 tab 01/12/24 Lacosamide [Vimpat] 100 mg PO BID #60 tab 01/12/24 oxyCODONE-APAP 10-325MG [Percocet 1 tab PO QID PRN #12 tab 01/12/24 10-325 mg] Allergies Allergy/AdvReac Type Severity Reaction Status Date / Time alprazolam [From Xanax] Allergy Rash/Hives Verified 02/04/24 14:26 codeine Allergy Rash/Hives Verified 02/04/24 14:26 nicotine [From Nicoderm CQ] AdvReac Hallucinati Verified 02/04/24 14:26 ons zolpidem [From Ambien] AdvReac "salty" Verified 02/04/24 14:26 taste in mouth, numb mouth Review of Systems ROS Statement: Those systems with pertinent positive or pertinent negative responses have been documented in the HPI. ROS Other: All systems not noted in ROS Statement are negative. Past Medical History Past Medical History: Coronary Artery Disease (CAD), CVA/TIA, GERD/Reflux, Hyperlipidemia, Hypertension, Liver Disease, Myocardial Infarction ([place]), Vascular Disorder Additional Past Medical History / Comment(s): Patient states he was admitted to the hospital January after a fall with head injury/new onset seizures and was hospitalized at [facility] in [place]. He was on life support and was extubated and had one more seizure. 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 Patient states he has Hepatitis C. Last Myocardial Infarction Date:: 2011 History of Any Multi-Drug Resistant Organisms: None Reported Past Surgical History: Heart Catheterization With Stent, Orthopedic Surgery Additional Past Surgical History / Comment(s): PCI with a total of 7 stents per pt, L caratid endartectomy, L shoulder surgery for injury, R knee/R hip/R elbow/R wrist ligament/tendon type surgeries injuries-has pins in hand, colonoscopy. Past Anesthesia/Blood Transfusion Reactions: No Reported Reaction Date of Last Stent Placement:: 2011 Past Psychological History: Anxiety Smoking Status: Current every day smoker Past Alcohol Use History: Occasional Past Drug Use History: Marijuana - Past Family History Father Family Medical History: CVA/TIA Additional Family Medical History / Comment(s): Father is from CVA. Pt states father from "stupidity." Mother Family Medical History: Diabetes Mellitus Additional Family Medical History / Comment(s): Mother from diabetes at the age of 52 yrs. Brother(s) Family Medical History: Diabetes Mellitus Additional Family Medical History / Comment(s): Brother at the age of 32 yrs from type 1 diabetes. General Exam - General Exam Comments Initial Comments: GENERAL: Patient is well-developed and well-nourished. Patient is nontoxic and well- hydrated and is in no acute distress. ENT: Neck is soft and supple. No significant lymphadenopathy is noted. Oropharynx is clear. Moist mucous membranes. Patient has some right-sided neck tenderness in the trapezius muscle connecting to the base of skull. EYES: The sclera were anicteric and conjunctiva were pink and moist. Extraocular movements were intact and pupils were equal round and reactive to light. Eyelids were unremarkable. PULMONARY: Unlabored respirations. Good breath sounds bilaterally. No audible rales rhonchi or wheezing was noted. CARDIOVASCULAR: There is a regular rate and rhythm without any murmurs gallops or rubs. ABDOMEN: Soft and nontender with normal bowel sounds. SKIN: Skin is clear with no lesions or rashes and otherwise unremarkable. NEUROLOGIC: Patient is alert and oriented x3. Cranial nerves II through XII are grossly intact. Motor and sensory are also intact. Normal speech, volume and content. Symmetrical smile. Patient is able to overcome his shaking of his legs if you ask him to. Also if you distract the patient and have him follow some simple commands the shaking stops while he is following those commands MUSCULOSKELETAL: Normal extremities with adequate strength and full range of motion. No lower extremity swelling or edema. No calf tenderness. LYMPHATICS: No significant lymphadenopathy is noted PSYCHIATRIC: Normal psychiatric evaluation. Course Vital Signs 02/20/24 11:59 Temperature 98.2 F Pulse Rate 74 Respiratory 16 Rate Blood Pressure 105/90 O2 Sat by Pulse 98 Oximetry Medical Decision Making - Medical Decision Making EKG is interpreted by myself. EKG shows sinus rhythm at 75 bpm. 157 QRS 103 QT interval 406 QTc is 434 Patient's EKG shows no ST segment elevation or depression was pt. sent in by a medical professional or institution (JULIAN Vargas, MACHINE STOPPAGE FREQUENCY CHECKER, urgent care, hospital, or intermediate...) When possible be specific @ -No Did you speak to anyone other than the patient for history (EMS, parent, family, police, friend...)? What history was obtained from this source @ -No Did you review nursing and triage notes (agree or disagree)? Why? @ -I reviewed and agree with nursing and triage notes Were old charts reviewed (outside hosp., previous admission, EMS record, old EKG, old radiological studies, urgent care reports/EKG's, intermediate records)? Report findings @ -No old charts were reviewed Differential Diagnosis? @ -Differential Musculoskeletal Muscular strain, contusion, ligament sprain, fracture, arthritis, septic arthritis, bursitis, cellulitis, muscle spasm, nerve compression, DVT, arterial occlusion, herpes zoster, electrolyte abnormality, tumor.... This is not meant to be in all inclusive list EKG interpreted by me (3pts min.). @ -As above X-rays interpreted by me (1pt min.). @ -Chest x-ray shows no acute normality CT interpreted by me (1pt min.). @ -None done U/S interpreted by me (1pt. min.). @ -None done What testing was considered but not performed or refused? (CT, X-rays, U/S, labs)? Why? @ -None What meds were considered but not given or refused? Why? @ -None Did you discuss the management of the patient with other professionals (professionals i.e. JULIAN Vargas, MACHINE [employer] F[employer]QUENCY CHECKER, lab, RT, psych nurse, licensed clinical social worker, television news video editor, teacher, multisensor intelligence officer, caser up)? Give summary @ -No Was smoking cessation discussed for >3mins.? @ -No Was critical care preformed (if so, how long)? @ -No Were there social determinants of health that impacted care today? How? (Homelessness, low income, unemployed, alcoholism, drug addiction, tra nsportation, low edu. Level, literacy, decrease access to med. care, fci, rehab)? @ -No Was there de-escalation of care discussed even if they declined (Discuss DNR or withdrawal of care, Hospice)? DNR status @ -No What co-morbidities impacted this encounter? (DM, HTN, Smoking, COPD, CAD, Cancer, CVA, ARF, Chemo, Hep., AIDS, mental health diagnosis, sleep apnea, morbid obesity)? @ -None Was patient admitted / discharged? Hospital course, mention meds given and route, prescriptions, significant lab abnormalities, going to OR and other pertinent info. @ -Patient only had shaking in his legs when I came into the room when I observed him for outside his room and shaking was completely stopped. Patient's chest x-ray shows no acute abnormality. Patient's lab work was within normal limits. Patient stated the Toradol did help his neck strain. Undiagnosed new problem with uncertain prognosis? @ -No Drug Therapy requiring intensive monitoring for toxicity (Heparin, Nitro, Insulin, Cardizem)? @ -No Were any procedures done? @ -No Diagnosis/symptom? @ -Cervical Acute, or Chronic, or Acute on Chronic? @ -Pain acute Uncomplicated (without systemic symptoms) or Complicated (systemic symptoms)? @ -Uncomplicated Side effects of treatment? @ -No Exacerbation, Progression, or Severe Exacerbation? @ -No Poses a threat to life or bodily function? How? (Chest pain, [place], [place], pneumonia, PE, COPD, DKA, ARF, appy, cholecystitis, CVA, Diverticulitis, Homicidal, Suicidal, threat to staff... and all critical care pts) @ -No Diagnosis/symptom? @ -Minor head trauma Acute, or Chronic, or Acute on Chronic? @ -Default Uncomplicated (without systemic symptoms) or Complicated (systemic symptoms)? @ -Acute uncomplicated Side effects of treatment? @ -None Exacerbation, Progression, or Severe Exacerbation] @ -No Poses a threat to life or bodily function? @ -No - Lab Data Result diagrams: 02/20/24 12:36 02/20/24 12:36 Lab Results 02/20/24 02/20/24 Range/Units 12:36 12:36 WBC 8.3 (3.8-10.6) k/uL RBC 4.60 (4.30-5.90) m/uL Hgb 12.9 L (13.0-17.5) gm/dL Hct 40.7 (39.0-53.0) % MCV 88.6 (80.0-100.0) fL MCH 28.0 (25.0-35.0) pg MCHC 31.6 (31.0-37.0) g/dL RDW 16.3 H (11.5-15.5) % Plt Count 353 (150-450) k/uL MPV 7.5 Neutrophils % 64 % Lymphocytes % 24 % Monocytes % 9 % Eosinophils % 3 % Basophils % 0 % Neutrophils # 5.3 (1.3-7.7) k/uL Lymphocytes # 2.0 (1.0-4.8) k/uL Monocytes # 0.7 (0-1.0) k/uL Eosinophils # 0.2 (0-0.7) k/uL Basophils # 0.0 (0-0.2) k/uL Hypochromasia Marked Anisocytosis Slight Sodium 139 (137-145) mmol/L Potassium 4.5 (3.5-5.1) mmol/L Chloride 105 (98-107) mmol/L Carbon Dioxide 30 (22-30) mmol/L Anion Gap 4 mmol/L BUN 7 L (9-20) mg/dL Creatinine 0.76 (0.66-1.25) mg/dL Est GFR (CKD-EPI)AfAm >90 (>60 ml/min/1.73 sqM) Est GFR (CKD-EPI)NonAf >90 (>60 ml/min/1.73 sqM) Glucose 108 H (74-99) mg/dL Calcium 9.9 (8.4-10.2) mg/dL Magnesium 2.2 (1.6-2.3) mg/dL Total Bilirubin 0.8 (0.2-1.3) mg/dL AST 22 (17-59) U/L ALT 13 (4-49) U/L Alkaline Phosphatase 108 (38-126) U/L Total Protein 7.7 (6.3-8.2) g/dL Albumin 4.6 (3.5-5.0) g/dL Disposition Clinical Impression: Minor head trauma, Cervical strain, acute Disposition: HOME SELF-CARE Condition: Good Additional Instructions: Patient should take Aleve twice a day Is patient prescribed a controlled substance at d/c from ED?: No Referrals: Aaron Felix MD [Primary Care Provider] - 1-2 days Time of Disposition: 13:45
[2024-02-20 12:03] VITALS: RESP 16; TEMP 98.2
--- NOTE | 2024-02-20 12:38 | XR ---
EXAMINATION TYPE: XR chest 2V DATE OF EXAM: 02/20/2024 COMPARISON: 02/04/2024 HISTORY: 73-year-old male with shortness of breath, difficulty breathing TECHNIQUE: AP and lateral views FINDINGS: Heart borderline in size. Mild hyperinflation. Diffuse interstitial density shows some improvement fr om prior exam. No progressive consolidation and pleural effusion. Multiple suture anchors left huan l head. IMPRESSION: Cardiomegaly and suspected underlying COPD. Diffuse interstitial opacity persists but shows some impr ovement from prior exam. Correlate to exclude atypical pneumonia or improving CHF.
[2024-02-20] MEDS: KETOROLAC 15 MG/ML 1 ML VIAL IVP STA (12:44)
[2024-02-20 12:45] LABS: Anisocytosis Slight; Basophils % (A) 0 %; Eosinophils # (A) 0.2 k/uL (0-0.7); Eosinophils % (A) 3 %; HCT 40.7 % (39.0-53.0); HGB 12.9 gm/dL (13.0-17.5); Hypochromasia Marked; Lymphocytes % (A) 24 %; MCHC 31.6 g/dL (31.0-37.0); MCV 88.6 fL (80.0-100.0); Mean Platelet Volume 7.5; Monocytes # (A) 0.7 k/uL (0-1.0); Monocytes % (A) 9 %; Neutrophils # (A) 5.3 k/uL (1.3-7.7); Neutrophils % (A) 64 %; Platelet Count 353 k/uL (150-450); RDW 16.3 % (11.5-15.5); WBC 8.3 k/uL (3.8-10.6)
[2024-02-20 12:56] LABS: ALT 13 U/L (4-49); African American GFR (CKD) >90 (>60 ml/min/1.73 sqM); Albumin 4.6 g/dL (3.5-5.0); Anion Gap 4 mmol/L; Blood Urea Nitrogen 7 mg/dL (9-20); Calcium 9.9 mg/dL (8.4-10.2); Carbon Dioxide 30 mmol/L (22-30); Chloride 105 mmol/L (98-107); Glucose 108 mg/dL (74-99); Non-African American GFR(CKD) >90 (>60 ml/min/1.73 sqM); Sodium 139 mmol/L (137-145); Total Bilirubin 0.8 mg/dL (0.2-1.3); Total Protein 7.7 g/dL (6.3-8.2)
[2024-02-20 13:21] LABS: AST 22 U/L (17-59); Alkaline Phosphatase 108 U/L (38-126); Magnesium 2.2 mg/dL (1.6-2.3); Potassium 4.5 mmol/L (3.5-5.1)
[2024-02-20 14:05] VITALS: BP 156/87; PULSE 73
== END 2024-02-20 14:05 | disposition home or self-care (01) ==
LOC: EC 11:43
DX: S16.1XXA Strain of muscle, fascia and tendon at neck level, initial encounter (principal); S09.90XA Unspecified injury of head, initial encounter; F17.200 Nicotine dependence, unspecified, uncomplicated; Z88.5 Allergy status to narcotic agent; Z88.8 Allergy status to other drugs, medicaments and biological substances; W08.XXXA Fall from other furniture, initial encounter
CPT/HCPCS: 36415; 93005; 80053; 83735; 85025; 71046; 99285; 96374; J1885

== ENCOUNTER → 2024-12-06 | Outpatient (CLI) | payer MEDICARE ==
--- NOTE | 2024-12-06 16:01 | NM ---
EXAMINATION TYPE: NM DatScan Brain SPECT DATE OF EXAM: 12/06/2024 COMPARISON: CT brain February 04, 2024 CLINICAL INDICATION: Male, 74 years old with history of R26.9,R25.8 OTHER ABNORMAL INVOLUNTARY MOVEME NTS; TECHNIQUE: 10 drops of Lugol's solution was administered 1 hour prior to injection as a thyroid bloc eusebio agent. After the administration of 4.45 mCi I-123 Ioflupane DaTscan. Images obtained 3 hours p ost injection. SPECT images of the brain were acquired with axial and coronal reconstructions. FINDINGS: Normal radiotracer uptake is seen throughout the striata bilaterally. IMPRESSION: Normal study. [facility], , 12/06/2024 3:58 PM
== END | disposition home or self-care (01) ==
LOC: RADNMMAIN 10:28
PROVIDERS: ATTEND Psychiatry & Neurology Neurology
DX: R26.9 Unspecified abnormalities of gait and mobility (principal); R25.8 Other abnormal involuntary movements
CPT/HCPCS: 78803; A9584